=== PATIENT | male | born 1950 | race Caucasian/White ===

== ENCOUNTER → 2018-11-24 07:59 | Outpatient (CLI) | payer MEDICARE, SELFPAY ==
[2018-09-08 06:39] VITALS: BMI 39.4
--- NOTE | 2018-11-24 14:54 | PFTCOMP ---
COMPLETE PULMONARY FUNCTION TEST INTERPRETATION Brief HPI: Patient is a 68 year old male, currently under the care of myself, who presents to [facility] for complete pulmonary function tests secondary to diagnosis of COPD. Respiratory therapist reports good effort and reproducible results. Interpretation: Forced expiration spirometry shows a very severe large airways obstructive ventilatory defect with an FEV1 of 26% predicted. There is a significant bronchodilator response in FVC by strict ATS criteria. Spirograms are of good quality and plateau slowly, indicating slowly emptying areas of the lungs. The respiratory flow volume loop shows decreased expiratory flow rates at all lung volumes consistent with airway obstruction. Lung volumes by body plethysmography show an elevated total lung capacity at 7.12 L, 133% predicted. FRC and RV are elevated out of proportion. Lung volume measurements are consistent with hyperinflation and air-trapping. Diffusion capacity by carbon monoxide is decreased at 37% predicted. The airway resistance is elevated. No previous pulmonary function tests were available for review. Impression: Partially reversible very severe large airways obstructive ventilatory defect resulting in air trapping with hyperinflation and a symmetric reduction in diffusion capacity
== END ==
PROVIDERS: Family Provider Family Medicine; PCP Family Medicine; Referring Provider Internal Medicine Critical Care Medicine; Visit Provider Internal Medicine Critical Care Medicine
DX: J44.9 Chronic obstructive pulmonary disease, unspecified (principal); G47.30 Sleep apnea, unspecified; E66.01 Morbid (severe) obesity due to excess calories; Z68.41 Body mass index [BMI] 40.0-44.9, adult
CPT/HCPCS: 94060; 94726; 94729

== ENCOUNTER → 2018-11-30 09:00 | Outpatient (CLI) | payer MEDICARE, SELFPAY ==
[2018-09-08 06:39] VITALS: BMI 39.4
[2018-11-30 09:28] VITALS: PULSE 66; PULSE 68; PULSE 75; PULSE 81; PULSE 82; PULSE 83; PULSE 84; O2SAT 85; O2SAT 87; O2SAT 91; O2SAT 92; O2SAT 93; O2SAT 94; O2SAT 96
--- NOTE | 2018-11-30 09:31 | CPS ---
Patient came in on home O2 of 3 lpm pulse dose. SpO2 93-94% room air. Started walk on room air, just before 2nd minute SpO2 85%. Placed patient back on home setting of 3 lpm pulse dose. Patient was able to maintain SpO2 greater than 89% until the 5th minute, SpO2 87%. Turned up to 4 lpm for the remaining minute. Patient took several brief breaks throughout testing.
--- NOTE | 2018-12-01 08:44 | PCM.PSN.6M ---
PSN 6 Minute Walk Test - 6 Minute Walk Test 6 Minute Walk Test: 6 Minute Walk Test PSN:6-Minute Walk Test Start: 11/30/18 09:27 Freq: Status: Active Protocol: RESP.6MINW Document 11/30/18 09:28 RUFINO (Rec: 11/30/18 09:33 RUFINO [id number]) 6 Minute Walk Test Date Performed 11/30/18 Time Performed 09:00 Height 5 ft 5 in Weight: 230 lb Weight in Pounds 230.[address]: Yandel Shah Assistive device used: None Pre-test Oxygen Delivery Method Room Air Pulse Ox (%) 94 Pulse Rate (60-100 beats/min) 66 Dyspnea Nancy Scale (0-10) 0 Exertion Nancy Scale (6-20) 6 1st minute Oxygen Delivery Method Room Air Pulse Ox (%) 91 Pulse Rate (60-100 beats/min) 75 2nd minute Oxygen Delivery Method Room Air Pulse Ox (%) 85 Pulse Rate (60-100 beats/min) 83 Number of Rests Taken 1 3rd minute Oxygen Flow Rate (L/min) (L/min) 3 Oxygen Delivery Method Nasal Cannula Pulse Ox (%) 92 Pulse Rate (60-100 beats/min) 75 Number of Rests Taken 1 4th minute Oxygen Flow Rate (L/min) (L/min) 3 Oxygen Delivery Method Nasal Cannula Pulse Ox (%) 92 Pulse Rate (60-100 beats/min) 81 Number of Rests Taken 1 5th minute Oxygen Flow Rate (L/min) (L/min) 3 Oxygen Delivery Method Nasal Cannula Pulse Ox (%) 87 Pulse Rate (60-100 beats/min) 82 6th minute Oxygen Flow Rate (L/min) (L/min) 4 Oxygen Delivery Method Nasal Cannula Pulse Ox (%) 93 Pulse Rate (60-100 beats/min) 84 Dyspnea Nancy Scale (0-10) 3 Exertion Nancy Scale (6-20) 14 Post-test Oxygen Flow Rate (L/min) (L/min) 4 Oxygen Delivery Method Nasal Cannula Pulse Ox (%) 96 Pulse Rate (60-100 beats/min) 68 Full Laps Walked 10 Partial Lap, Number of Tiles Walked 0 Total Distance Walked (ft) 590 11/30/18 09:31 Cardiopulmonary Services by Karen Riggins Patient came in on home O2 of 3 lpm pulse dose. SpO2 93-94% room air. Started walk on room air, just before 2nd minute SpO2 85%. Placed patient back on home setting of 3 lpm pulse dose. Patient was able to maintain SpO2 greater than 89% until the 5th minute, SpO2 87%. Turned up to 4 lpm for the remaining minute. Patient took several brief breaks throughout testing. Initialized on 11/30/18 09:31 - END OF NOTE - Interpretation Interpretation: The patient ambulated 590 feet over the course of 6 minutes beginning on room air without assistive devices. The patient did take several breaks throughout the testing. Pretesting oxygen saturation was noted to be 94% on room air. With ambulation, the patient experienced significant exertional oxygen desaturation, requiring the initiation of supplemental oxygen. This testing indicates the presence of impaired walk distance along with a pulmonary limitation to exercise tolerance. - Recommendations Recommendations: 4 L/min of supplemental oxygen should be utilized with exertion. No supplemental oxygen is needed at rest.
== END ==
PROVIDERS: Family Provider Family Medicine; PCP Family Medicine; Referring Provider Internal Medicine Critical Care Medicine; Visit Provider Internal Medicine Critical Care Medicine
DX: J44.9 Chronic obstructive pulmonary disease, unspecified (principal)
CPT/HCPCS: 94618

== ENCOUNTER 2019-06-25 15:32 | Inpatient (IN) | payer MEDICARE, SELFPAY ==
[2019-03-22 05:56] VITALS: BMI 40.9
[2019-06-25] VITALS (17 sets, daily range): BP systolic 115–145; BP diastolic 59–72; PULSE 74–94; RESP 12–31; TEMP 36.6–36.8; O2SAT 92–99; BMI 38.2; BMI 41.8; BMI 41.9
--- NOTE | 2019-06-25 15:43 | EKG12_ITS ---
Test Reason : SOB Blood Pressure : / mmHG Vent. Rate : 079 BPM Atrial Rate : 079 BPM P-R Int : 188 ms QRS Dur : 098 ms QT Int : 360 ms P-R-T Axes : 072 021 065 degrees QTc Int : 412 ms Normal sinus rhythm Normal ECG Confirmed by LEESA MENDEZ, DESTINEE ([id number]), dictionary editor HANY ANDREWS ([id number]) on 06/26/2019 2:53:44 PM Referred By: Elle Billings Confirmed By:DESTINEE LANDERS MD
--- NOTE | 2019-06-25 15:44 | ED.VISSUMM ---
- ER Visit Summary Date of Service: 06/25/19 Chief Complaint: [Shortness of breath] History of Present Illness: The patient is a 69 M [presents to the emergency department shortness of breath for the last 2 days. Patient states that he is got a cough that started yesterday and is coughing up some yellow sputum. He denies any chest pain. Patient normally wears 3 L of home O2. Patient is complaining of exertional dyspnea. He denies any recent travel or surgery. He denies any fevers.] Patient has history of COPD, pulmonary hypertension, and sleep apnea. Physical Examination: [HEENT-PERRLA, EOMI. Cranial nerves II through XII grossly intact. TMs clear. Mucous membranes moist. No adenopathy. Cardiovascular-regular rate and rhythm without murmur or ectopy Lungs-diminished breath sounds bilaterally with expiratory wheezes throughout. Patient is tachypneic. Patient has some mild conversational dyspnea. No accessory muscle use or retractions noted. Abdomen-normoactive bowel sounds, soft, nontender, no rebound or rigidity, no peritoneal signs. Extremities-intact ?4, normal range of motion, normal pulses, atraumatic] Test Results: [EKG obtained on arrival shows sinus rhythm with a ventricular rate of 79 bpm with no acute segment changes noted. CBC with differential showed a white count of 9.7, hemoglobin 13, hematocrit 43, placed 265. Chemistries unremarkable. Troponin is less than 0.015. Chest x-ray showed chronic changes otherwise nothing acute.] Blood gas ordered and pending. Emergency Department Course and Treatment: [He was given DuoNeb aerosol followed by 2 more albuterol aerosols. Patient continued to feel tachypneic. Patient was started on BiPAP.] Patient started on Solu-Medrol 125 mg IV. Patient feeling improved on BiPAP and respiratory rate decreased now. Treatment Plan: [Admit for further treatment of his COPD exacerbation] Disposition: [Admit] Impression: [C OPD exacerbation Respiratory failure] This note was generated with [employer] dictation software. It may contain incorrect words, spelling, and punctuation that were not noted in review of the chart prior to signing ED Disposition - Plan for ED Patient: Referrals: Earle Weinstein MD [Primary Care Provider] -
--- NOTE | 2019-06-25 15:45 | RAD_ITS ---
STUDY: X-RAY CHEST REASON FOR EXAM: Male, 69 years old. SOB and cough TECHNIQUE: Single frontal view of the chest. COMPARISON: 06/21/2015 FINDINGS: Chronic interstitial lung changes without superimposed acute alveolar disease. There is no demonstrated pleural abnormality. Normal size heart. Normal mediastinum and earlene. Normal visualized pulmonary arteries. There is atherosclerotic tortuosity of the aortic arch and descending thoracic aorta. Normal visualized thoracic spine. There is degenerative osteoarthritis of the bilateral shoulders. There is no demonstrated abnormality of the visualized soft tissue structures of the upper abdomen. RAD/Chest 1 View (Portable) IMPRESSION: Chronic interstitial lung changes without superimposed acute alveolar disease. Electronically Signed: Charlie Langston MD at 16:13 EST Tel , Service support ,
[2019-06-25] MEDS: 0.9% Normal Saline 1,000 ML 150 ML IV (15:49)
[2019-06-25] MEDS: MethylPREDNISolone 125 MG/2 ML Vial IV (15:49)
[2019-06-25] MEDS: Albuterol 2.5 MG/3 ML VIAL.NEB. INHALATION ×4 (15:52→21:36)
[2019-06-25] MEDS: Ipratropium/Albuterol Sulfate 3 ML AMPUL.NEB INHALATION ×2 (15:52→19:30)
[2019-06-25 15:58] LABS: Absolute Lymphocyte Count 1.49 X10^3/uL (0.83-4.51); Absolute Neutrophil Count 6.8 X10^3/uL (2.0-7.7); Basophil# 0.09 X10^3/uL; Basophil% 0.9 % (0-1); Eosinophils% 3.1 % (0-5); Hematocrit 43.2 % (40-54); Hemoglobin 13.3 g/dL (13.0-16.5); Lymphocyte # 1.49 X10^3/ul (4.0); Lymphocyte % 15.3 % (19-41); Mean Corp Hgb Conc 30.8 g/dL (32-36); Mean Corpuscular Hgb 29.3 pg (27.0-32.0); Mean Corpuscular Volume 95.2 fL (80-94); Mean Platelet Vol. 9.9 fl (6.2-12.0); Monocyte# 1.03 X10^3/uL; Monocyte% 10.6 % (0-10); NRBC Flagged by Analyzer 0 % (0-5); Neutrophil # 6.78 X10^3/uL (2.7-7.7); Neutrophil % 69.7 % (47-70); Platelet Count 265 K/mm3 (150-450); RBC Distribution Width CV 12.9 % (11.6-14.6); RBC Distribution Width SD 45.2 fl (35.1-43.9); Red Blood Count 4.54 M/mm3 (4.6-6.2); White Blood Count 9.7 K/mm3 (4.4-11.0)
--- NOTE | 2019-06-25 16:09 | CPS ---
Patient grunting with BiPAP on, pressures increased to 14/7. FiO2 decreased to 25%,
[2019-06-25 16:23] LABS: Anion Gap 2 (5-15); BUN 18 mg/dL (7-18); BUN/Creat Ratio 23.5 RATIO (10-20); Calcium,Total 8.8 mg/dL (8.5-10.1); Chloride 101 mmol/L (98-107); Creatinine, Serum 0.77 mg/dL (0.70-1.30); EST Glomerular Filtration Rate 107 mL/min (>60); Est Glom Filt Rate - Afr Amer 130 mL/min (>60); Glucose 105 mg/dL (74-106); Potassium 4.1 mmol/L (3.5-5.1); Sodium Level 141 mmol/L (136-145)
[2019-06-25 16:50] LABS: Allen Test POS; Base Excess 11 mmol/L (-2 to +2); Blood Gas Specimen Type ART; EPAP 7; FI02 25; IPAP 14; PO2 72 mmHG (75-100); RR 12; SITE R Radial; SO2 94 % (95-99); Time Given 1635; Total Carbon Dioxide 38 mmol/L; pCO2 57.8 mmHg (35-45)
--- NOTE | 2019-06-25 17:26 | HP.PCM_ITS ---
Problem List (1) Stage 4 very severe COPD by GOLD classification Status: Chronic Comment: FEV1 29% (2) Obesity (BMI 30-39.9) Status: Chronic (3) Secondary pulmonary hypertension Status: Chronic (4) COPD (chronic obstructive pulmonary disease) Status: Chronic Comment: FEV1 29% (5) Sleep apnea Status: Chronic Qualifiers: Comment: AutoPap 10-14 cmH2O (6) Chronic respiratory failure Status: Chronic Qualifiers: History of Present Illness Date of Admission: 06/25/19 Chief Complaint: Shortness of breath. The patient is a 69 year old M patient with past medical history as mentioned above presented to the emergency room because of shortness of breath. Symptoms started 2 days ago with worsening shortness of breath, exertional shortness of breath, progressed to become even at rest, associated with productive cough with yellow sputum as well as wheezing, aggravated by any type of activity and not relieved with rest. Patient reported sore throat and mild nasal congestion as well. He denies fever or chills. Patient has been on oxygen at 3 L at home chronically and he mentioned that when he increase his oxygen, he becomes dizzy. He denied chest pain, syncope or presyncope. In the emergency department, patient was afebrile, dyspneic and tachypneic. Blood pressure and heart rate were stable. Routine blood work was unremarkable. EKG revealed normal sinus rhythm without evidence of acute skin changes. Troponin was negative. Chest x- ray revealed chronic right lung and left base chronic changes without evidence of acute infiltrate. His ABG revealed pH of 7.40, PCO2 of 57 and PO2 of 72. He is being admitted for acute COPD exacerbation with acute on chronic hypoxic and hypercapnic respiratory failure. Past Medical History Past Medical History (Chronic Problems): Chronic Problems (Last Updated 06/25/19 @ 17:25 by Elle Billings MD) Stage 4 very severe COPD by GOLD classification (Chronic) FEV1 29% Obesity (BMI 30-39.9) (Chronic) Secondary pulmonary hypertension (Chronic) COPD (chronic obstructive pulmonary disease) (Chronic) FEV1 29% Sleep apnea (Chronic) AutoPap 10-14 cmH2O Chronic respiratory failure (Chronic) Medical History: Medical History (Last Updated 06/25/19 @ 17:25 by Elle Billings MD) COPD (chronic obstructive pulmonary disease) (Chronic) J44.9 FEV1 29% Sleep apnea (Chronic) G47.30 AutoPap 10-14 cmH2O Chronic respiratory failure (Chronic) J96.10 Pneumonia J18.9 Fluid overload E87.70 Hypoxia R09.02 Secondary pulmonary hypertension Stage 4 very severe COPD by GOLD classification J44.9 Allergies No Known Allergies Allergy (Verified 06/25/19 15:35) Home Medications: Ambulatory Orders Medication Instructions Recorded Budesonide/Formoterol 160/4.5 2 puff INHALATION BID 02/22/15 [Symbicort 160/4.5 Mcg Inhaler (SP)] Tamsulosin HCl [Flomax] 0.4 mg PO DAILY 06/21/15 furosemide 20 mg tablet 20 mg PO QDAY 07/22/17 tiotropium bromide 2.5 2 puff INHALATION QDAY #1 ea 03/09/19 mcg/actuation mist for inhalation albuterol sulfate HFA 90 2 puff INHALATION Q4H PRN #18 g 03/22/19 mcg/actuation aerosol inhaler Surgical History: Surgical History (Last Reviewed 03/22/19 @ 06:33 by Anabel Skinner) Total knee replacement status Z96.659 Surgical History: - - Head surgery as a child due to trauma. Psychiatric History: No pertinent psych hx Lives: Spouse/ Significant Other Smoking Status: Former smoker Alcohol: None Drugs: None - *Family History Maternal Family History: Family History (Last Reviewed 03/22/19 @ 06:33 by Anabel Skinner) Mother Cancer Father Heart disease Paternal Family History: Family History (Last Reviewed 03/22/19 @ 06:33 by Anabel Skinner) Mother Cancer Father Heart disease History Items: - - mother of ovarian cancer Review of Systems Constitutional: Denies: Anorexia, Chills, Fever, Weakness Eyes: Denies: Blurred vision, Double vision, Drainage, Redness HEENT: Denies: Difficulty Hearing, Ear Pain, Eye Pain, Nasal Congestion, Sore Throat Cardiovascular: Denies: Chest Pain, Chest Pressure, Palpitations, Syncope Respiratory: Reports: Cough, Shortness of Breath, Shortness of breath at rest, Shortness of breath upon exertion, Sputum production, Wheezing. Denies: Pl euritic Pain Gastrointestinal: Denies: Abdominal Pain, Constipation, Diarrhea, Nausea, Vomiting Genitourinary: Denies: Dysuria, Frequency, Hematuria Musculoskeletal: Denies: Arm Pain, Back Pain, Foot Pain Skin: Denies: Dryness, Rash Neurological: Denies: Balance problems, Blurred vision, Double vision, Change in Speech, Slurred speech, Confusion, Headaches, Numbness Psychiatric: Denies: Anxiety, Depression Endocrine: Denies: Change in Body Habitus, Polydipsia, Polyuria VTE Information - Inpt Only VTE Present on Admission: No VTE Mechan Device Prophylaxis: None VTE Pharm Prophylaxis ordered?: Yes - Physical Exam Vitals/I&O's: Vital Signs Temp Pulse Resp BP Pulse Ox 98.3 F 86 19 H 132/64 H 94 06/25/19 15:33 06/25/19 17:14 06/25/19 17:14 06/25/19 17:14 06/25/19 17:14 Oxygen Flow Rate (L/min) 3 Oxygen Delivery Method Bi-pap Weight: 230 lb Body Mass Index (BMI) 38.2 General: Alert, Oriented x3, Cooperative, - - Moderately short of breath. On BiPAP. HEENT: Atraumatic, PERRLA, EOMI Oral: Moist Mucosa, No Gingival or Mucosal Lesions/ Ulcerations Neck: Supple, No JVD, Negative Carotid Bruits, Trachea Midline, Thyroid Normal Size and Texture Lungs: No rales, Diminished, Rhonchi, Short of Breath, Tachypneic, - - Markedly decreased sounds bilateral, bilateral expiratory wheezes. Cardiovascular: Regular rate, Regular Rhythm, Normal S1, Normal S2, PMI Normal Abdomen: Bowel Sounds Present, Soft, Non Tender, Non-Distended, No Hepato- splenomegaly, Obese Extremities: No clubbing, No cyanosis, Edema - Trace edema. Skin: No rashes, No breakdown Lymphatic: No Cervical, Supraclavicular, or Inguinal Adenopathy Neurological: Cranial nerves II-XII grossly intact, Motor Exam 5/5 strength throughout Psych/Mental Status: Normal Affect, Appropriate, Alert and oriented to time, place, person, mood and affect Laboratory Results 06/25/19 15:45: WBC 9.7, RBC 4.54 L, Hgb 13.3, Hct 43.2, MCV 95.2 H, MCH 29.3, MCHC 30.8 L, RDW Std Deviation 45.2 H, RDW Coeff of Earle 12.9, Plt Count 265, MPV 9.9, Immature Gran % (Auto) 0.400, Neut % (Auto) 69.7, Lymph % (Auto) 15.3 L, Antelope % (Auto) 10.6 H, Eos % (Auto) 3.1, Baso % (Auto) 0.9, Absolute Neuts (auto) 6.8, Absolute Lymphs (auto) 1.49, Nucleated RBC % 0 06/25/19 15:45: Sodium 141, Potassium 4.1, Chloride 101, Carbon Dioxide 38.0 H, Anion Gap 2 L, BUN 18, Creatinine 0.77, Estim Creat Clear Calc 61.50, Est GFR (MDRD) Af Amer 130, Est GFR (MDRD) Non-Af 107, BUN/Creatinine Ratio 23.5 H, Glucose 105, Calcium 8.8, Troponin I < 0.015 06/25/19 16:43: Specimen Type ART, Sample Site R Radial, pH 7.40, Bicarbonate Actual 36.0 H, POC Total CO2 38, Base Excess 11 H, O2 Saturation 94 L, O2 % 25, ABG pCO2 57.8 H, ABG pO2 72 L, Mahesh Test POS, Respiration Rate 12, O2 Delivery Device Bi / C PAP, EPAP 7, IPAP 14, Blood Gas Notified Whom ED MD, Blood Gas Notified Time 1635 Clinical Impression(s) from Imaging Studies Chest X-Ray 06/25/19 15:45 IMPRESSION: Chronic interstitial lung changes without superimposed acute alveolar disease. Electronically Signed: Charlie Langston MD at 16:13 EST Tel , Service support , Current Medications Sodium Chloride () 1,000 mls @ 150 mls/hr IV .Q6H40M ONE Stop: 06/25/19 22:22 Last Admin: 06/25/19 15:49 Dose: 150 mls/hr Documented by: Assessment/Plan This is a 69 years old male patient presented to the emergency room because of worsening shortness of breath with productive cough and wheezing, found to have acute COPD exacerbation complicated by acute on chronic hypoxic and hypercapnic respiratory failure. #1 acute COPD exacerbation: Chest x-ray without acute infiltrate or consolidation. Chronic findings noted. EKG was unremarkable. Troponin is negative. Plan: Admit to [facility] floor, telemetry, DuoNeb every 6 hours, albuterol PRN, IV Solu-Medrol, IV Levaquin, sputum culture, respiratory panel for viruses, incentive spirometer, chest physiotherapy, PT OT evaluation and treatment. #2 acute on chronic hypoxic and hypercapnic respiratory failure: Secondary to #1. ABG reviewed, revealed pH of 7.40, PCO2 of 57 and PO2 of 72. Plan to continue BiPAP, IV steroids, IV antibiotics, bronchodilators. #3 COPD/chronic respiratory failure: On home oxygen at 3 L currently. Now on BiPAP, plan as above. #4 benign prostatic hypertrophy: Continue Flomax. #5 secondary pulmonary hypertension: Due to COPD, not on medications. #6 sleep apnea. #7 DVT prophylaxis: Subcu Lovenox. This note was generated with [employer] dictation software. It may contain incorrect words, spelling, and punctuation that were not noted in checking the note before signing. Code Visit Inpatient E&M: 29294 Init Hosp L2
[2019-06-25] MEDS: levoFLOXacin IV 500 MG/100 ML BAG 100 MG IV (18:40)
[2019-06-25] MEDS: guaiFENesin 1,200 MG Tablet 1200 MG PO (22:00)
[2019-06-25] MEDS: 0.9% Saline Lock 10 ML Syringe IV (22:00)
[2019-06-26] VITALS (18 sets, daily range): BP systolic 119–130; BP diastolic 57–79; PULSE 80–110; RESP 12–28; TEMP 36.3–36.6; O2SAT 91–96
[2019-06-26] MEDS: Ipratropium/Albuterol Sulfate 3 ML AMPUL.NEB INHALATION ×5 (01:57→20:41)
--- NOTE | 2019-06-26 02:30 | NURSING ---
PATIENT VERY UPSET BECAUSE NOT GETTING SLEEP ON BIPAP, RESPIRATORY THERAPIST SPOKE WITH DOCTOR TO CHANGE TO CPAP. PATIENT DIDN'T TOLERATE THAT VERY LONG BECAUSE NOT ABLE TO SLEEP. 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 INSTRUCTED TO HAVE BRING IN HOME UNIT EARLY THIS MORNING. PATIENT PLACED ON 4LNC DUE TO NOT BEING ABLE TO HANDLE OUR MACHINE. WILL CONTINUE TO MONITOR.
[2019-06-26] MEDS: 0.9% Saline Lock 10 ML Syringe IV ×4 (05:28→22:03)
[2019-06-26] MEDS: guaiFENesin 1,200 MG Tablet 1200 MG PO ×2 (08:32→22:02)
[2019-06-26] MEDS: Tamsulosin HCl 0.4 MG Capsule PO (08:32)
[2019-06-26] MEDS: Furosemide 20 MG Tablet PO (08:32)
[2019-06-26] MEDS: levoFLOXacin IV 500 MG/100 ML BAG 100 MG IV (08:33)
--- NOTE | 2019-06-26 10:24 | CASEMGMT ---
Addendum entered by Alice Freitas 06/26/19 11:02: Phone number listed is patient's 's cell phone and states okay to call her phone if needed and for DC f/u call if needed. MICK Perera Original Note: RN CM Assessment Introduced role of RN CM to patient.? Patient is alert, oriented and able?to participate in RN CM Assessment. ?Care providers, pharmacy, and demographics verified. Presentation: SOB Admit Dx: COPD Exacerbation, Acute on Chronic Respiratory Failure Re-Admit: No Barriers/Issues: Patient states that he purchased his portable O2 privately and needs to get it serviced, ,Cm advised calling [facility] to inquire as that is whom his Home O2 is through. PCP: Earle Weinstein Specialists: Puldana- Dr Shah Preferred Pharmacy: [facility] Insurance: [id number] PPO Rx Benefit:?Yes, [employer] ?LNOK: Isela Powers LW/HPOA: None on file at [facility]. Patient states he believes he has completed, agreed to Advanced directive information and provided by this CM in case he has not completed, aware can return as an outpatient to complete and given SW rack card. Living Arrangements:?Lives with his in a [facility], 3 steps to enter. ADL?s: Independent with ambulation and ADLs. States does prepare meals. Transportation: Both patient and drive. to transport upon DC. Portable O2 tank is sitting at patient bedside. DME: Home O2 3LNC Continuous- [employer], CPAP with O2 bleed-[employer], Portable O2-self purchased, Glucometer. HHC: None SNF: None Goal: Home and does not think will have any needs. Denies any issues, concerns, or questions with DC planning at this time. Aware CM remains available for any emerging needs. DC PLAN: Home with no anticipated needs identified at this time. MICK Perera
--- NOTE | 2019-06-26 11:18 | CASEMGMT ---
Social Work Palliative Care Screening Tool completed with pt score of 2. No referral indicated at this time. ESTHELA Bell
--- NOTE | 2019-06-26 12:15 | PN_ITS ---
<Han Jones - Last Filed: 06/26/19 12:15> Reason for Visit: SOB Subjective: Patient resting comfortably in chair bedside. Ongoing shortness of breath at rest and worse with exertion. He feels that he has improved since last night. He has a productive cough with yellow sputum. He denies any explicit sick contacts. He tested positive for rhinovirus. No lower extremity edema. No chest pain, heaviness, tightness. No nausea vomiting or diarrhea. Vitals/I&O's: Vital Signs Temp Pulse Resp BP Pulse Ox 97.4 F L 89 18 119/60 95 06/26/19 08:27 06/26/19 11:18 06/26/19 08:27 06/26/19 08:27 06/26/19 08:27 Oxygen Flow Rate (L/min) 4 Oxygen Delivery Method Nasal Cannula Weight: 251 lb 8.759 oz Body Mass Index (BMI) 41.8 Intake and Output for Last 24 Hours 06/24/19 06/25/19 06/26/19 23:59 23:59 23:59 Intake Total 750 / 750 100 / 100 Balance 750 / 750 100 / 100 General: Alert, Oriented x3, Cooperative HEENT: Atraumatic, PERRLA, EOMI, Normocephalic Neck: Supple, No JVD, Negative Carotid Bruits Lungs: Clear to auscultation, Diminished - Severely diminished Cardiovascular: Regular rate, No murmurs Abdomen: Bowel Sounds Present, Soft, Non Tender Extremities: No edema, Capillary Refill Less than 3 Seconds Skin: No rashes, No breakdown Musculoskeletal: No Tenderness to Palpation of Joints or Extremities Neurological: Cranial nerves II-XII grossly intact Psych/Mental Status: Normal Affect, Appropriate, Alert and oriented to time, place, person, mood and affect Microbiology Past 72 Hours 06/25/19 20:45 Sputum, Expectorated/Coughed Gram Stain - Preliminary 06/25/19 20:45 Sputum, Expectorated/Coughed Respiratory Culture - Preliminary Appears to be normal respiratory millicent. Further studies to follow. 06/25/19 17:26 Mucosa - Nose Respiratory Panel (PCR) - Final Rhinovirus 06/25/19 17:26 Mucosa - Nose Influenza Types A,B Direct FA (CHIP) - Final Laboratory Results 06/25/19 15:45: WBC 9.7, RBC 4.54 L, Hgb 13.3, Hct 43.2, MCV 95.2 H, MCH 29.3, MCHC 30.8 L, RDW Std Deviation 45.2 H, RDW Coeff of Earle 12.9, Plt Count 265, MPV 9.9, Immature Gran % (Auto) 0.400, Neut % (Auto) 69.7, Lymph % (Auto) 15.3 L, Canadian % (Auto) 10.6 H, Eos % (Auto) 3.1, Baso % (Auto) 0.9, Absolute Neuts (auto) 6.8, Absolute Lymphs (auto) 1.49, Nucleated RBC % 0 06/25/19 15:45: Sodium 141, Potassium 4.1, Chloride 101, Carbon Dioxide 38.0 H, Anion Gap 2 L, BUN 18, Creatinine 0.77, Estim Creat Clear Calc 61.50, Est GFR (MDRD) Af Amer 130, Est GFR (MDRD) Non-Af 107, BUN/Creatinine Ratio 23.5 H, Glucose 105, Calcium 8.8, Troponin I < 0.015 06/25/19 16:43: Specimen Type ART, Sample Site R Radial, pH 7.40, Bicarbonate Actual 36.0 H, POC Total CO2 38, Base Excess 11 H, O2 Saturation 94 L, O2 % 25, ABG pCO2 57.8 H, ABG pO2 72 L, Mahesh Test POS, Respiration Rate 12, O2 Delivery Device Bi / C PAP, EPAP 7, IPAP 14, Blood Gas Notified Whom ED MD, Blood Gas Notified Time 1639 Current Medications Acetaminophen (Tylenol) 650 mg PO Q6H PRN PRN PRN Reason: Pain Score 1-3/Temp > 100.7 F Albuterol Sulfate (Ventolin Aerosols) 2.5 mg INHALATION Q2H PRN PRN PRN Reason: Shortness of Breath/Wheezing Last Admin: 06/25/19 21:36 Dose: 2.5 mg Documented by: Albuterol/Ipratropium (Duoneb) 3 ml INHALATION Q4H.RT [facility] Last Admin: 06/26/19 11:13 Dose: 3 ml Documented by: Furosemide (Lasix) 20 mg PO DAILY [facility] Last Admin: 06/26/19 08:32 Dose: 20 mg Documented by: Guaifenesin (Mucinex) 1,200 mg PO BID [facility] Last Admin: 06/26/19 08:32 Dose: 1,200 mg Documented by: Levofloxacin (Levaquin Iv) 500 mg in 100 mls @ 100 mls/hr IV Q24 [facility] Stop: 06/29/19 10:59 Last Infusion: 06/26/19 10:06 Dose: Infused Documented by: Sodium Chloride () 250 mls @ 15 mls/hr IV .[id number] PRN PRN Reason: Saline Flush Methylprednisolone (Solu-Medrol) 40 mg IV Q8 [facility] Last Admin: 06/26/19 05:28 Dose: 40 mg Documented by: Nutritional Formula (Lactose Free) (Ensure Enlive) 120 ml PO 4X/DAY [facility] Last Admin: 06/26/19 08:32 Dose: 120 ml Documented by: Ondansetron HCl (Zofran) 4 mg IV Q8H PRN PRN PRN Reason: NAUSEA/VOMITING Senna/Docusate Sodium (Senokot-S, Isabel-Colace) 2 tablet PO BID PRN PRN PRN Reason: Constipation Sodium Chloride () 10 - 40 ml IV UD PRN PRN Reason: SALINE FLUSH Last Admin: 06/26/19 08:35 Dose: 10 ml Documented by: Tamsulosin HCl (Flomax) 0.4 mg PO DAILY [facility] Last Admin: 06/26/19 08:32 Dose: 0.4 mg Documented by: STROKE Vital Signs/Narrative: Vital Signs Temp Pulse Resp BP Pulse Ox 06/26/19 11:18 89 06/26/19 08:27 97.4 F L 88 18 119/60 95 Medical Necessity - Tobacco Use Smoking Status: Former smoker Assessment/Plan 1. Acute COPD exacerbation secondary to acute rhinovirus-continue Solu-Medrol, aerosols. Lungs diminished. No fever or leukocytosis. Sputum culture pending. On empiric Levaquin. 2. Chronic hypoxic hypercapnic repsiratory failure -baseline oxygen 3 L/min. Stable. Follow-up with was her pulmonology as an outpatient. Acute respiratory failure ruled out. 3. BPH-Flomax 4. 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 5. Obstructive sleep apnea-on BiPAP at night. 6. morbid obesity - dietary eval DVT prophylaxis: Lovenox Discharge planning: Likely home tomorrow. This patient was seen by Han Jones PA-C under the supervision of Doctor Sami giron. <LuigiRicky - Last Filed: 06/26/19 13:32> Vitals/I&O's: Vital Signs Temp Pulse Resp BP Pulse Ox 97.4 F L 89 18 119/60 95 06/26/19 08:27 06/26/19 11:18 06/26/19 08:27 06/26/19 08:27 06/26/19 08:27 Oxygen Flow Rate (L/min) 4 Oxygen Delivery Method Nasal Cannula Weight: 114.1 kg Body Mass Index (BMI) 41.8 Intake and Output for Last 24 Hours 06/24/19 06/25/19 06/26/19 23:59 23:59 23:59 Intake Total 750 / 750 675 / 675 Balance 750 / 750 675 / 675 Microbiology Past 72 Hours 06/25/19 20:45 Sputum, Expectorated/Coughed Gram Stain - Preliminary 06/25/19 20:45 Sputum, Expectorated/Coughed Respiratory Culture - Preliminary Appears to be normal respiratory millicent. Further studies to follow. 06/25/19 17:26 Mucosa - Nose Respiratory Panel (PCR) - Final Rhinovirus 06/25/19 17:26 Mucosa - Nose Influenza Types A,B Direct FA (CHIP) - Final Laboratory Results 06/25/19 15:45: WBC 9.7, RBC 4.54 L, Hgb 13.3, Hct 43.2, MCV 95.2 H, MCH 29.3, MCHC 30.8 L, RDW Std Deviation 45.2 H, RDW Coeff of Earle 12.9, Plt Count 265, MPV 9.9, Immature Gran % (Auto) 0.400, Neut % (Auto) 69.7, Lymph % (Auto) 15.3 L, Canadian % (Auto) 10.6 H, Eos % (Auto) 3.1, Baso % (Auto) 0.9, Absolute Neuts (auto) 6.8, Absolute Lymphs (auto) 1.49, Nucleated RBC % 0 06/25/19 15:45: Sodium 141, Potassium 4.1, Chloride 101, Carbon Dioxide 38.0 H, Anion Gap 2 L, BUN 18, Creatinine 0.77, Estim Creat Clear Calc 61.50, Est GFR (MDRD) Af Amer 130, Est GFR (MDRD) Non-Af 107, BUN/Creatinine Ratio 23.5 H, Glucose 105, Calcium 8.8, Troponin I < 0.015 06/25/19 16:43: Specimen Type ART, Sample Site R Radial, pH 7.40, Bicarbonate Actual 36.0 H, POC Total CO2 38, Base Excess 11 H, O2 Saturation 94 L, O2 % 25, ABG pCO2 57.8 H, ABG pO2 72 L, Mahesh Test POS, Respiration Rate 12, O2 Delivery Device Bi / C PAP, EPAP 7, IPAP 14, Blood Gas Notified Whom ED MD, Blood Gas Notified Time 1635 Current Medications Acetaminophen (Tylenol) 650 mg PO Q6H PRN PRN PRN Reason: Pain Score 1-3/Temp > 100.7 F Albuterol Sulfate (Ventolin Aerosols) 2.5 mg INHALATION Q2H PRN PRN PRN Reason: Shortness of Breath/Wheezing Last Admin: 06/25/19 21:36 Dose: 2.5 mg Documented by: Albuterol/Ipratropium (Duoneb) 3 ml INHALATION Q4H.RT [facility] Last Admin: 06/26/19 11:13 Dose: 3 ml Documented by: Furosemide (Lasix) 20 mg PO DAILY [facility] Last Admin: 06/26/19 08:32 Dose: 20 mg Documented by: Guaifenesin (Mucinex) 1,200 mg PO BID [facility] Last Admin: 06/26/19 08:32 Dose: 1,200 mg Documented by: Levofloxacin (Levaquin Iv) 500 mg in 100 mls @ 100 mls/hr IV Q24 [facility] Stop: 06/29/19 10:59 Last Infusion: 06/26/19 10:06 Dose: Infused Documented by: Sodium Chloride () 250 mls @ 15 mls/hr IV .[id number] PRN PRN Reason: Saline Flush Methylprednisolone (Solu-Medrol) 40 mg IV Q8 [facility] Last Admin: 06/26/19 05:28 Dose: 40 mg Documented by: Ondansetron HCl (Zofran) 4 mg IV Q8H PRN PRN PRN Reason: NAUSEA/VOMITING Senna/Docusate Sodium (Senokot-S, Isabel-Colace) 2 tablet PO BID PRN PRN PRN Reason: Constipation Sodium Chloride () 10 - 40 ml IV UD PRN PRN Reason: SALINE FLUSH Last Admin: 06/26/19 08:35 Dose: 10 ml Documented by: Tamsulosin HCl (Flomax) 0.4 mg PO DAILY [facility] Last Admin: 06/26/19 08:32 Dose: 0.4 mg Documented by: STROKE Vital Signs/Narrative: Vital Signs Pulse 06/26/19 11:18 89 Assessment/Plan This patient was seen in conjunction with Han Jones PA-C . I have independently interviewed and examined the patient and reviewed pertinent historical, laboratory, and other data. Please refer to Han Jones PA-C note for details of this patient's presentation, findings, and recommendations. I have reviewed Han Jones PA-C note and concur with documented findings. In brief, patient is 69-year-old gentleman admitted with progressive shortness of breath Physical Examination: GENERAL: cooperative HEENT: Atraumatic; EYES; Anicteric, Normal Conjunctiva NECK; supple, normal thyroid, RESPIRATORY: Diminished to auscultation CARDIOVASCULAR: Regular S1 S2, GI: soft, normoactive bowel sounds, : No Renal angle tenderness; NEURO: Awake; no lateralizing signs. SKIN: No Rash Assessment: 1. Acute rhinovirus infection 2. COPD with acute exacerbation 3. Pulmonary hypertension 4. BPH 5. Obstructive sleep apnea 6. Obesity with BMI 41.9 Recommendations: 1. I have discussed the results of my overview and impressions with the patient 2. Options for management were reviewed Code Visit Inpatient E&M: 45295 Subs Hosp L2
--- NOTE | 2019-06-26 14:38 | CHAPLAIN ---
Type of Pastoral Visit _x__ Initial Visit ___ Follow-up Visit ___ On-call Visit ___ General Patient Visit ___ Spiritual Assessment ___ Family Conference ___ Bereavement ___ Rapid Response ___ Code Blue ___ Other (describe below) Pastoral Care Referral From _x__ Patient ___ Family ___ Nurse ___ Physician ___ Coroner Forensic Technician ___ Label Stitcher ___ Other (describe below) Sacrament/Intervention _x__ Active listening ___ Anointing ___ Uatsdin ___ Bereavement ___ Communion ___ Sonia exploration ___ ___ Life review _x__ Prayer ___ Reconciliation ___ Sacrament of Sick ___ Supportive presence ___ Wedding ___ Other (describe below) Pastoral Comments
[2019-06-27 03:09] VITALS: PULSE 95
[2019-06-27 04:20] VITALS: BP 116/65; PULSE 80; RESP 13; TEMP 36.9; O2SAT 97
--- NOTE | 2019-06-27 06:04 | CPS ---
pt on own cpap from home with 3l bleed
[2019-06-27 06:20] LABS: Anion Gap 5 (5-15); BUN 28 mg/dL (7-18); BUN/Creat Ratio 34.8 RATIO (10-20); Calcium,Total 8.3 mg/dL (8.5-10.1); Chloride 102 mmol/L (98-107); EST Glomerular Filtration Rate 101 mL/min (>60); Est Glom Filt Rate - Afr Amer 123 mL/min (>60); Estimated Creatinine Clearance 76.88 ml/min; Glucose 191 mg/dL (74-106); Potassium 4.4 mmol/L (3.5-5.1); Sodium Level 138 mmol/L (136-145)
[2019-06-27] MEDS: 0.9% Saline Lock 10 ML Syringe IV (06:24)
[2019-06-27 07:02] VITALS: PULSE 74
[2019-06-27 07:03] VITALS: PULSE 91; RESP 16; O2SAT 92
[2019-06-27] MEDS: Ipratropium/Albuterol Sulfate 3 ML AMPUL.NEB INHALATION (07:03)
[2019-06-27 09:28] VITALS: BP 153/84; PULSE 92; RESP 18; TEMP 36.6; O2SAT 95
[2019-06-27] MEDS: Tamsulosin HCl 0.4 MG Capsule PO (09:29)
[2019-06-27] MEDS: Furosemide 20 MG Tablet PO (09:29)
[2019-06-27] MEDS: guaiFENesin 1,200 MG Tablet 1200 MG PO (09:30)
[2019-06-27] MEDS: Enoxaparin 40 MG/0.4 ML Syringe SC (09:30)
[2019-06-27] MEDS: levoFLOXacin IV 500 MG/100 ML BAG 100 MG IV (09:30)
[2019-06-27 09:42] VITALS: O2SAT 94
--- NOTE | 2019-06-27 10:23 | DCINST_ITS ---
You will use the following diet at home:: No restrictions Your food should be the consistency of: Regular Allergies/Adverse Reactions: Allergies No Known Allergies Allergy (Verified 06/25/19 15:35) Medications to take at Discharge Budesonide/Formoterol 160/4.5 [Symbicort 160/4.5 Mcg Inhaler (SP)] 2 puff INHALATION BID 02/22/15 Tamsulosin HCl [Flomax] 0.4 mg PO DAILY 06/21/15 furosemide 20 mg tablet 20 mg PO QDAY 07/22/17 tiotropium bromide 2.5 mcg/actuation mist for inhalation 2 puff INHALATION QDAY #1 ea 03/09/19 albuterol sulfate HFA 90 mcg/actuation aerosol inhaler 2 puff INHALATION Q4H PRN #18 g 03/22/19 Guaifenesin [Mucinex] 1,200 mg PO BID #14 tab 06/27/19 Prednisone 20 mg PO BID #10 tab 06/27/19 The following prescriptions were given: Guaifenesin [Mucinex] 1,200 mg PO BID #14 tab Transmission Status: Pending to [facility][id number] Prednisone 20 mg PO BID #10 tab Transmission Status: Pending to [facility] #[id number] Primary Care Physician: Earle Weinstein MD [Primary Care Provider] - Please follow up with your Primary Care Physician in: in 5-7 days Test Results: Test results from this visit will be discussed in further detail at your follow- up appointment, if applicable. Please Follow Up With: Earle Weinstein MD Please Follow Up With: Yandel Shah MD When: as scheduled Proposed Discharge Date: 06/27/19
--- NOTE | 2019-06-27 10:29 | CASEMGMT ---
Pt is on 3liters continuous oxygen at home and was ambulated with good pulse ox on 3liters today. Therapy states no therapy recommended at this time. Carmella AUGUSTE CM
--- NOTE | 2019-06-27 14:28 | PCM.DC.SUM ---
<Han Jones - Last Filed: 06/27/19 14:28> Discharge Date and Diagnosis Date of Admission: 06/25/19 Date of Discharge: 06/27/19 - Primary Discharge Diagnosis Acute COPD exacerbation secondary to acute rhinovirus Chronic hypoxic respiratory failure secondary to COPD Obstructive sleep apnea Pulmonary hypertension Morbid obesity BPH - Secondary Discharge Diagnosis Chronic Problems (Last Updated 06/25/19 @ 17:25 by Elle Billings MD) Stage 4 very severe COPD by GOLD classification (Chronic) FEV1 29% Obesity (BMI 30-39.9) (Chronic) Secondary pulmonary hypertension (Chronic) COPD (chronic obstructive pulmonary disease) (Chronic) FEV1 29% Sleep apnea (Chronic) AutoPap 10-14 cmH2O Chronic respiratory failure (Chronic) Hospital Course and Treatment Imaging Results: RAD/Chest 1 View (Portable) IMPRESSION: Chronic interstitial lung changes without superimposed acute alveolar disease. Operations: None Procedures: None Summary of Care Provided: Hospital course: The patient is a 69 year old M with past medical history as above most notable for COPD with chronic hypoxic respiratory failure on 3 L/min of oxygen at baseline, who presents to the emergency room with complaints of increased shortness of breath over the 2 days prior to admission. He also had cough productive of yellow sputum and increased wheezing. In the emergency room he was very wheezy, had a negative chest x-ray, was stable on 3 L/min of oxygen and had mild elevation of his CO2 on his BMP. He was admitted to the PCU on telemetry for acute COPD exacerbation. A viral panel demonstrated that he had rhinovirus. He was treated with Levaquin, aerosols, IV Solu-Medrol. The patient improved rapidly to treatment. He was able to be ambulated in the james and did not desaturate on his home oxygen level. He was transitioned to a prednisone taper. He was discharged home in stable condition. He needs to follow-up with his PCP in 1 week, he should also follow-up with his accounts payable assistant, he should call for appointment. This patient was seen by Han Jones PA-C under the supervision of Doctor Meyers. [] - Physical Exam Vitals/I&O's: Vital Signs Temp Pulse Resp BP Pulse Ox 97.8 F 92 18 153/84 H 94 06/27/19 09:28 06/27/19 09:28 06/27/19 09:28 06/27/19 09:28 06/27/19 09:42 Oxygen Flow Rate (L/min) [ 3 AMBULATION with Oxygen] Oxygen Flow Rate (L/min) 3 Oxygen Delivery Method Nasal Cannula Weight: 251 lb 8.759 oz Body Mass Index (BMI) 41.8 Intake and Output for Last 24 Hours 06/25/19 06/26/19 06/27/19 23:59 23:59 23:59 Intake Total 750 / 750 1845 / 1845 360 / 360 Balance 750 / 750 1845 / 1845 360 / 360 General: Alert, Oriented x3, Cooperative HEENT: Atraumatic, PERRLA, EOMI, Normocephalic Neck: Supple, No JVD, Negative Carotid Bruits Lungs: Diminished, Wheezes Cardiovascular: Regular rate, No murmurs Abdomen: Bowel Sounds Present, Soft, Non Tender Extremities: No edema, Capillary Refill Less than 3 Seconds Skin: No rashes, No breakdown Musculoskeletal: No Tenderness to Palpation of Joints or Extremities Neurological: Cranial nerves II-XII grossly intact Psych/Mental Status: Normal Affect, Appropriate, Alert and oriented to time, place, person, mood and affect Microbiology Past 72 Hours 06/25/19 20:45 Sputum, Expectorated/Coughed Gram Stain - Final 06/25/19 20:45 Sputum, Expectorated/Coughed Respiratory Culture - Preliminary Appears to be normal respiratory millicent. Further studies to follow. 06/25/19 17:26 Mucosa - Nose Respiratory Panel (PCR) - Final Rhinovirus 06/25/19 17:26 Mucosa - Nose Influenza Types A,B Direct FA (CHIP) - Final Laboratory Results 06/27/19 05:42: Sodium 138, Potassium 4.4, Chloride 102, Carbon Dioxide 31.0, Anion Gap 5, BUN 28 H, Creatinine 0.80, Estim Creat Clear Calc 76.88, Est GFR (MDRD) Af Amer 123, Est GFR (MDRD) Non-Af 101, BUN/Creatinine Ratio 34.8 H, Glucose 191 H, Calcium 8.3 L Discharge Diet: Low fat/ Low Cholesterol, 2000 mg Sodium Diet Discharge Activity: Return to Normal Activity Home Medications: Medications to take at Discharge Budesonide/Formoterol 160/4.5 [Symbicort 160/4.5 Mcg Inhaler (SP)] 2 puff INHALATION BID 02/22/15 Tamsulosin HCl [Flomax] 0.4 mg PO DAILY 06/21/15 furosemide 20 mg tablet 20 mg PO QDAY 07/22/17 tiotropium bromide 2.5 mcg/actuation mist for inhalation 2 puff INHALATION QDAY #1 ea 03/09/19 albuterol sulfate HFA 90 mcg/actuation aerosol inhaler 2 puff INHALATION Q4H PRN #18 g 03/22/19 Guaifenesin [Mucinex] 1,200 mg PO BID #14 tab 06/27/19 Prednisone 20 mg PO BID #10 tab 06/27/19 Following Prescrptions Were Given to Patient: Guaifenesin [Mucinex] 1,200 mg PO BID #14 tab Transmission Status: Received by [facility] #[id number] Prednisone 20 mg PO BID #10 tab Transmission Status: Received by [facility] #[id number] Primary Care Physician: Earle Weinstein MD [Primary Care Provider] - Please follow up with your Primary Care Physician in: in 5-7 days Please Follow Up With: Earle Weinstein MD Please Follow Up With: Yandel Shah MD When: as scheduled Medical Necessity - Tobacco Use Smoking Status: Former smoker Meaningful Use Info Meaningful Use Diagnoses (Choose all that apply): None applicable <Ricky Meyers - Last Filed: 06/27/19 15:00> Discharge Date and Diagnosis - Secondary Discharge Diagnosis Chronic Problems (Last Updated 06/25/19 @ 17:25 by Elle Billings MD) Stage 4 very severe COPD by GOLD classification (Chronic) FEV1 29% Obesity (BMI 30-39.9) (Chronic) Secondary pulmonary hypertension (Chronic) COPD (chronic obstructive pulmonary disease) (Chronic) FEV1 29% Sleep apnea (Chronic) AutoPap 10-14 cmH2O Chronic respiratory failure (Chronic) Hospital Course and Treatment Summary of Care Provided: This patient was seen in conjunction with Han Jones PA-C . I have independently interviewed and examined the patient and reviewed pertinent historical, laboratory, and other data. Please refer to Han Jones PA-C note for details of this patient's presentation, findings, and recommendations. I have reviewed Han Jones PA-C note and concur with documented findings. In brief, patient is 69-year-old gentleman admitted with progressive shortness of breath Physical Examination: GENERAL: cooperative HEENT: Atraumatic; EYES; Anicteric, Normal Conjunctiva NECK; supple, normal thyroid, RESPIRATORY: Diminished to auscultation CARDIOVASCULAR: Regular S1 S2, GI: soft, normoactive bowel sounds, : No Renal angle tenderness; NEURO: Awake; no lateralizing signs. SKIN: No Rash Assessment: 1. Acute rhinovirus infection 2. COPD with acute exacerbation 3. Pulmonary hypertension 4. BPH 5. Obstructive sleep apnea 6. Obesity with BMI 41.9 Hospital course: As documented above - Physical Exam Vitals/I&O's: Vital Signs Temp Pulse Resp BP Pulse Ox 97.8 F 92 18 153/84 H 94 06/27/19 09:28 06/27/19 09:28 06/27/19 09:28 06/27/19 09:28 06/27/19 09:42 Oxygen Flow Rate (L/min) [ 3 AMBULATION with Oxygen] Oxygen Flow Rate (L/min) 3 Oxygen Delivery Method Nasal Cannula Weight: 114.1 kg Body Mass Index (BMI) 41.8 Intake and Output for Last 24 Hours 06/25/19 06/26/19 06/27/19 23:59 23:59 23:59 Intake Total 750 / 750 1845 / 1845 360 / 360 Balance 750 / 750 1845 / 1845 360 / 360 Microbiology Past 72 Hours 06/25/19 20:45 Sputum, Expectorated/Coughed Gram Stain - Final 06/25/19 20:45 Sputum, Expectorated/Coughed Respiratory Culture - Preliminary Appears to be normal respiratory millicent. Further studies to follow. 06/25/19 17:26 Mucosa - Nose Respiratory Panel (PCR) - Final Rhinovirus 06/25/19 17:26 Mucosa - Nose Influenza Types A,B Direct FA (CHIP) - Final Laboratory Results 06/27/19 05:42: Sodium 138, Potassium 4.4, Chloride 102, Carbon Dioxide 31.0, Anion Gap 5, BUN 28 H, Creatinine 0.80, Estim Creat Clear Calc 76.88, Est GFR (MDRD) Af Amer 123, Est GFR (MDRD) Non-Af 101, BUN/Creatinine Ratio 34.8 H, Glucose 191 H, Calcium 8.3 L Disposition: Home Minutes spent on discharge:: 35 Patient Condition:: Stable Code Visit Inpatient E&M: 18180 Disch Hosp
--- NOTE | 2019-06-28 13:59 | CASEMGMT ---
KALYANI PAYNE Discharge Follow-Up Phone Call. Nieves: Rupa Strata: 3 Discharge Date: 06/27/19 Adm Dx: COPD Exac, Acute on Chronic Resp Failure Call to pt to inquire about how he has been doing since being discharged from the hospital. Pt's , Aby, answered. She states pt was not available to talk on the phone at this time but that she could answer any questions. She states pt is doing pretty good and states, everything's great. 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 She is aware of the appt scheduled with PCP. 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 She states she has the office/contact number. She denies any needs/concerns at this time. Adin LOUIE RN, CM
== END 2019-06-27 11:01 | disposition home or self-care (01) | DRG 191 ==
LOC: ED 16:14 → PCU 17:28
PROVIDERS: Physician Assistant; Admitting Provider Hospitalist; Emergency Provider Emergency Medicine; Family Provider Family Medicine; PCP Family Medicine; Referring Provider Hospitalist; Visit Provider Internal Medicine
DX: J44.1 Chronic obstructive pulmonary disease with (acute) exacerbation (principal); J96.11 Chronic respiratory failure with hypoxia; J96.12 Chronic respiratory failure with hypercapnia; Z68.41 Body mass index [BMI] 40.0-44.9, adult; B97.89 Other viral agents as the cause of diseases classified elsewhere; G47.33 Obstructive sleep apnea (adult) (pediatric); I27.20 Pulmonary hypertension, unspecified; E66.01 Morbid (severe) obesity due to excess calories; N40.0 Benign prostatic hyperplasia without lower urinary tract symptoms; Z99.81 Dependence on supplemental oxygen; Z79.51 Long term (current) use of inhaled steroids; Z79.899 Other long term (current) drug therapy; Z87.891 Personal history of nicotine dependence
CPT/HCPCS: 36415; 36600; 71045; 80048; 82803; 84484; 85025; 87070; 87205; 87633; 87804; 93005; 94002; 94003; 94640; 94667; 94668; 97162; 97802; 99251; 99283; J7030; A4216; G0463

== ENCOUNTER → 2020-01-18 11:05 | Outpatient (CLI) | payer MEDICARE, SELFPAY ==
[2020-01-18 11:05] VITALS: BMI 38.2
[2020-01-18 12:28] LABS: Absolute Lymphocyte Count 1.72 X10^3/uL (0.83-4.51); Absolute Neutrophil Count 5.4 X10^3/uL (2.0-7.7); Basophil# 0.07 X10^3/uL; Basophil% 0.9 % (0-1); Eosinophil# 0.23 X10^3/uL; Eosinophils% 2.8 % (0-5); Hematocrit 42.3 % (40-54); Hemoglobin 12.9 g/dL (13.0-16.5); Lymphocyte # 1.72 X10^3/ul (4.0); Lymphocyte % 21.1 % (19-41); Mean Corp Hgb Conc 30.5 g/dL (32-36); Mean Corpuscular Hgb 29.3 pg (27.0-32.0); Mean Corpuscular Volume 96.1 fL (80-94); Mean Platelet Vol. 10.3 fl (6.2-12.0); Monocyte# 0.71 X10^3/uL; Monocyte% 8.7 % (0-10); NRBC Flagged by Analyzer 0 % (0-5); Neutrophil # 5.39 X10^3/uL (2.7-7.7); Neutrophil % 66.3 % (47-70); Platelet Count 257 K/mm3 (150-450); RBC Distribution Width CV 13.2 % (11.6-14.6); RBC Distribution Width SD 46.9 fl (35.1-43.9); White Blood Count 8.1 K/mm3 (4.4-11.0)
[2020-01-18 12:47] LABS: ALB/GLOB Ratio 0.8 RATIO (0.9-2.4); AST(SGOT) 14 U/L (15-37); Alanine Aminotransfer ALT/SGPT 17 U/L (16-61); Albumin, Serum 3.4 g/dL (3.2-5.0); Alkaline Phosphatase 57 U/L (45-117); Anion Gap 4 (5-15); BUN 18 mg/dL (7-18); BUN/Creat Ratio 28.6 RATIO (10-20); Calcium,Total 8.6 mg/dL (8.5-10.1); Chloride 100 mmol/L (98-107); Cholesterol 181 mg/dL (200); Creatinine, Serum 0.63 mg/dL (0.70-1.30); EST Glomerular Filtration Rate 134 mL/min (>60); Est Glom Filt Rate - Afr Amer 163 mL/min (>60); Globulin 4.2 g/dL (2.2-4.2); Glucose 96 mg/dL (74-106); High Density Lipoprotein 53 mg/dL; PSA,Total - Annual Screen 0.09 ng/mL (0.00-4.00); Potassium 4.5 mmol/L (3.5-5.1); Protein, Total 7.6 g/dL (6.4-8.2); Sodium Level 139 mmol/L (136-145); T4 Free Direct 1.02 ng/dL (0.76-1.46); Thyroid Stim Hormone (TSH) 1.92 uIU/mL (0.358-3.74); Triglycerides 88 mg/dL; Very Low Density Lipoprotein 18 mg/dL (5-40)
== END ==
PROVIDERS: PCP Family Medicine; Referring Provider Family Medicine; Visit Provider Family Medicine
DX: E04.1 Nontoxic single thyroid nodule (principal); N40.0 Benign prostatic hyperplasia without lower urinary tract symptoms; J44.9 Chronic obstructive pulmonary disease, unspecified; E66.01 Morbid (severe) obesity due to excess calories; Z12.5 Encounter for screening for malignant neoplasm of prostate
CPT/HCPCS: 36415; 80053; 80061; 84153; 84439; 84443; 85025; G0103

== ENCOUNTER → 2020-01-31 12:07 | Outpatient (CLI) | payer MEDICARE, SELFPAY ==
[2020-01-18 11:05] VITALS: BMI 38.2
--- NOTE | 2020-01-31 12:10 | US_ITS ---
STUDY: ULTRASOUND - URINARY BLADDER REASON FOR EXAM: Male, 70 years old. INCOMPLETE BLADDER EMPTYING TECHNIQUE: Ultrasound evaluation of the urinary bladder was performed with real-time and static bender-scale imaging. COMPARISON: None. FINDINGS: There is no right UVJ calculus. There is a non-visualization of a right ureteral jet. There is no left UVJ calculus. There is a visualized left ureteral jet. The distended volume of the urinary bladder is 392 ml. The empty volume of the urinary bladder is 132 ml. The bladder wall is within normal limits. The bladder wall measures 4.0 mm. There is no demonstrated bladder wall mass lesion. There are no demonstrated bladder calculi. US/Post Void Residual Bladder IMPRESSION: Small post void residual. Electronically Signed: Ramakrishna Levi, at 15:07 EDT , Service support ,
--- NOTE | 2020-01-31 12:10 | US_ITS ---
STUDY: THYROID ULTRASOUND REASON FOR EXAM: Male, 70 years old. NODULE FELT BY DOCTOR TECHNIQUE: Ultrasound evaluation of the thyroid was performed with real-time and static bender-scale imaging. COMPARISON: None. FINDINGS: RIGHT LOBE: The right lobe of the thyroid gland measures 4.4 cm x 2 cm x 1.9 cm. There is a homogeneous echotexture. There are no demonstrated solid, cystic or complex lesions. LEFT LOBE: The left lobe of the thyroid gland measures 4.8 cm x 2.3 cm x 2.2 cm. There is a homogeneous echotexture. There is a 7 mm x 6 mm x 4 mm hypoechoic solid nodule in the lower pole of the left lobe. ISTHMUS: The isthmus measures 7.0 mm. The regional lymph nodes are normal. US/Thyroid IMPRESSION: 7 mm x 6 mm x 4 mm hypoechoic solid nodule in the lower pole of the left lobe of the thyroid. Electronically Signed: Ramakrishna Levi, at 15:08 EDT , Service support ,
--- NOTE | 2020-01-31 13:18 | CT_ITS ---
STUDY: CT CHEST WITHOUT CONTRAST- LOW DOSE SCREENING PROTOCOL REASON FOR EXAM: Male, 70 years old. pack per year history. No current symptoms of lung cancer or pulmonary infection. Shared decision-making with referring PCP documented in patient''s record. RADIATION DOSAGE (If Supplied By Facility): CTDIvol = ( 3.40 ) mGy, DLP = ( 112.31 ) mGycm TECHNIQUE: Low dose screening CT examination performed from the base of the neck to the upper abdomen. Sagittal and coronal reformatted images performed. Sagittal and coronal MIP images provided. The measurements provided are average, rounded measurements per ACR guidelines. COMPARISON: 10/02/2014 FINDINGS: Mild emphysematous changes. Some left lower lobe cylindrical bronchiectasis and scarring. Linear scarring in the lingula left lung. No noncalcified nodule or mass. There is no demonstrated pleural abnormality. Normal heart and pericardium. There are calcifications of the coronary arteries. Normal mediastinum. Normal hilar regions. Normal unenhanced pulmonary arteries. Normal aorta arch and descending thoracic aorta. Normal osseous structures. There is no demonstrated abnormality of the visualized upper abdomen. CT/Low Dose CT Lung Screening IMPRESSION: 1. No significant indeterminate incidental findings requiring additional imaging. 2. Incidental findings include mild emphysema, bronchiectasis, and scarring.. ASSESSMENT CATEGORY: LungRADS 1 - Negative. Continue annual screening with LDCT in 12 months, per established ACR guidelines. Electronically Signed: Zelalem Christianson MD at 14:48 EDT Tel , Service support ,
== END ==
PROVIDERS: PCP Family Medicine; Referring Provider Family Medicine; Visit Provider Family Medicine
DX: Z12.2 Encounter for screening for malignant neoplasm of respiratory organs (principal); Z87.891 Personal history of nicotine dependence; E04.1 Nontoxic single thyroid nodule; R33.9 Retention of urine, unspecified
CPT/HCPCS: 51798; 76536; G0297

== ENCOUNTER 2020-05-05 16:52 | Emergency (ER) | payer MEDICARE, SELFPAY ==
[2020-01-18 11:05] VITALS: BMI 38.2
[2020-05-05 16:53] VITALS: BP 145/71; PULSE 84; RESP 24; TEMP 36.3; O2SAT 96; BMI 39.9
--- NOTE | 2020-05-05 17:16 | RAD_ITS ---
STUDY: X-RAY CHEST REASON FOR EXAM: Male, 70 years old. Shortness of breath, COPD, fever TECHNIQUE: Frontal view of the chest COMPARISON: 25 June 2019 FINDINGS: There is new ill-defined right lower lung opacity. Left mid and lower lung zone opacity has increased compared to prior. However, there were previous opacities with air likely scarring. There is no pneumothorax, cardiomegaly, pulmonary edema or pleural effusions. Osseous structures are intact. RAD/Chest 1 View (Portable) IMPRESSION: Bilateral ill-defined opacities, possibly early pneumonia. Electronically Signed: Jayda Escudero, at 19:05 EDT Tel , Service support ,
--- NOTE | 2020-05-05 17:16 | EKG12_ITS ---
Test Reason : SOB Blood Pressure : / mmHG Vent. Rate : 083 BPM Atrial Rate : 083 BPM P-R Int : 180 ms QRS Dur : 094 ms QT Int : 364 ms P-R-T Axes : 069 014 062 degrees QTc Int : 427 ms Normal sinus rhythm Low voltage QRS Confirmed by TORI MENDEZ, GAIL ([id number]), industrial editor RIYA CRAIG ([id number]) on 05/07/2020 12:44:51 PM Referred By: AAMIR/ZENAIDA Confirmed By:GAIL VALLE MD
--- NOTE | 2020-05-05 18:03 | ED.DCSUM_ITS ---
History of Present Illness Chief Complaint: Shortness of Breath Informant: Patient, Spouse/S.O. Onset: Days - 3-4 Activity at onset: Exertion Timing: Continuous, Waxes and wanes Quality: Dyspnea on exertion, Wheezing Current Severity: Moderate Maximum Severity: Moderate Associated Symptoms: Cough, Fever - 99.8 couple days ago, none since, Rhinorrhea - And congestion, no sinus pain/pressure. Negative for: Bloody Sputum, Chills, Clear sputum, Sore throat Chest Pain: None Narrative: Patient has been having cold symptoms and increased COPD symptoms for several days. Low-grade temperatures couple days ago, patient did not have any cold chills. Patient presents during the national coronavirus emergency declaration/pandemic. He denies any known contact with anyone infected with COVID-19. He denies traveling out of the immediate area recently. No leg pain or swelling, no history of DVT or PE. No pleuritic pains. States he has been using his maintenance inhalers, and using a rescue inhaler 2 puffs daily which helps temporarily. - Past Medical History (1) COPD (chronic obstructive pulmonary disease) Status: Chronic Comment: FEV1 29% (2) Secondary pulmonary hypertension Status: Chronic (3) Sleep apnea Status: Chronic Comment: AutoPap 10-14 cmH2O Past Medical History - Allergies and Home Meds Allergies/Adverse Reactions: Allergies No Known Allergies Allergy (Verified 05/05/20 16:53) Primary Care Physician: Earle Espinoza MD [Primary Care Provider] - Surgical History: - - Head surgery as a child due to trauma. Lives: With Family Smoking Status: Former smoker - Family History Paternal Family History: Family History (Last Reviewed 03/22/19 @ 06:33 by Anabel Skinner) Mother Cancer Father Heart disease Family History: Reports: - - mother of ovarian cancer Maternal Family History: Family History (Last Reviewed 03/22/19 @ 06:33 by Anabel Skinner) Mother Cancer Father Heart disease Family History: Reports: No pertinent history, - Review of Systems General: Reports: Fever, Malaise. Denies: Chills, Sweats Eyes: Denies: Visual changes - bilaterally, Diplopia ENT: Reports: Rhinorrhea - And congestion. Denies: Bilateral ear pain, Sore throat Cardiovascular: Denies: Chest pain, Palpitations Respiratory: Reports: Dyspnea, Cough, Dyspnea on exertion. Denies: Sputum, Orthopnea Gastrointestinal: Denies: Abdominal pain, Nausea, Vomiting, Diarrhea, Melena, Hematochezia Genitourinary: Denies: Dysuria, Hematuria, Frequency Musculoskeletal: Reports: Myalgias, Swelling - Chronic both lower extremities, unchanged. Denies: Neck pain, Back pain, Extremity Pain Skin: Denies: Rash, Wounds Neurological: Reports: Headache. Denies: Weakness, Numbness Physical Exam Vital Signs/Narrative: Vital Signs Temp Pulse Resp BP Pulse Ox 05/05/20 16:53 97.3 F L 84 24 H 145/71 H 96 Inital Vital Signs reviewed: Yes General: Well nourished, Well developed, No Acute Distress Head: Normocephalic, Atraumatic Eyes: Perrl, EOMI ENT: Moist mucous membranes, No rhinorrhea Neck: Supple, Nontender, No lymphadenopathy, No JVD Cardiovascular: Regular rate, Regular rhythm, No murmurs. Negative for: Tachycardia Respiratory: No distress, Chest nontender, Wheezing. Negative for: Rales, Rhonchi Abdomen: Soft, Nontender, Nondistended, Normal bowel sounds Back: Nontender, Normal Inspection Extremities: Nontender, Edema - 2+ both lower extremities to the knees, symmetric. Negative for: Calf Tenderness Skin: Normal color, No rash, No Trauma Neurological: Alert, Oriented x3, Cranial nerves II-XII grossly intact, Normal Strength, Normal Sensation Psychological: Normal affect, Normal Mood Diagnostic/Tx/Re-eval Impressions Chest X-Ray 05/05/20 17:16 IMPRESSION: Bilateral ill-defined opacities, possibly early pneumonia. Electronically Signed: Jayda Escudero, at 19:05 EDT Tel , Service support , 05/05/20 17:16 Chest 1 View (Portable) [RAD] Stat Laboratory Results 05/05/20 05/05/20 18:20 18:20 WBC 5.5 RBC 4.34 L Hgb 12.5 L Hct 40.6 MCV 93.5 MCH 28.8 MCHC 30.8 L RDW Std Deviation 44.2 H RDW Coeff of Earle 12.8 Plt Count 233 MPV 9.8 Immature Gran % (Auto) 0.200 Neut % (Auto) 70.8 H Lymph % (Auto) 16.5 L [place] % (Auto) 11.6 H Eos % (Auto) 0.5 Baso % (Auto) 0.4 Absolute Neuts (auto) 3.9 Absolute Lymphs (auto) 0.91 Nucleated RBC % 0 Sodium 136 Potassium 4.1 Chloride 97 L Carbon Dioxide 37.0 H Anion Gap 2 L BUN 12 Creatinine 0.61 L Estim Creat Clear Calc 60.65 Est GFR (MDRD) Af Amer 167 Est GFR (MDRD) Non-Af 138 BUN/Creatinine Ratio 19.5 Glucose 104 Calcium 7.9 L Troponin I < 0.015 - Rhythm Strip Rhythm Strip: Sinus Rhythm Rate: 83 Ectopy: None - EKG Initial EKG Interpretation: Sinus Rhythm, No Acute Injury Pattern - Normal EKG Treatment - Dyspnea: Albuterol Repeat Evaluation: Improved - Medical Decision Making X-rays above, there are subtle infiltrate suggesting early pneumonia. Certainly COVID-19 is in the differential diagnosis, a swab was sent but he does not need to be admitted, so it was sent to be performed as an outpatient and will not come back tonight. Patient was advised to quarantine as if he has it in the meantime. We will treat him with a azithromycin, prednisone. He was given Solu-Medrol here. He is breathing well, oxygenating well, and has home oxygen at home. Advised follow-up. I offered admission but he declines and states he feels well enough to go home. ED Disposition - Plan for ED Patient: Disposition: Home or Assisted Living Diagnosis: COPD exacerbation, Pneumonia Instructions: ED COPD Flare, ED PNEUMONITIS Adult Prescriptions: Azithromycin 250 mg PO QHS #4 tab Transmission Status: Pending to [facility] #[id number] Prednisone [Deltasone] 40 mg PO DAILY #10 tab Transmission Status: Pending to [facility] #[id number] Referrals: Earle Espinoza MD [Primary Care Provider] - 3-5 Days
[2020-05-05 18:09] VITALS: BP 149/82; PULSE 77; RESP 22; TEMP 36.8; O2SAT 98; O2SAT 99
[2020-05-05 18:31] LABS: Absolute Lymphocyte Count 0.91 X10^3/uL (0.83-4.51); Absolute Neutrophil Count 3.9 X10^3/uL (2.0-7.7); Basophil# 0.02 X10^3/uL; Basophil% 0.4 % (0-1); Eosinophil# 0.03 X10^3/uL; Eosinophils% 0.5 % (0-5); Hematocrit 40.6 % (40-54); Hemoglobin 12.5 g/dL (13.0-16.5); Lymphocyte # 0.91 X10^3/ul (4.0); Lymphocyte % 16.5 % (19-41); Mean Corp Hgb Conc 30.8 g/dL (32-36); Mean Corpuscular Hgb 28.8 pg (27.0-32.0); Mean Corpuscular Volume 93.5 fL (80-94); Mean Platelet Vol. 9.8 fl (6.2-12.0); Monocyte# 0.64 X10^3/uL; Monocyte% 11.6 % (0-10); NRBC Flagged by Analyzer 0 % (0-5); Neutrophil # 3.89 X10^3/uL (2.7-7.7); Neutrophil % 70.8 % (47-70); Platelet Count 233 K/mm3 (150-450); RBC Distribution Width CV 12.8 % (11.6-14.6); RBC Distribution Width SD 44.2 fl (35.1-43.9); Red Blood Count 4.34 M/mm3 (4.6-6.2); White Blood Count 5.5 K/mm3 (4.4-11.0)
[2020-05-05] MEDS: MethylPREDNISolone 125 MG/2 ML Vial IV (18:40)
[2020-05-05 18:51] LABS: Anion Gap 2 (5-15); BUN 12 mg/dL (7-18); BUN/Creat Ratio 19.5 RATIO (10-20); Calcium,Total 7.9 mg/dL (8.5-10.1); Chloride 97 mmol/L (98-107); Creatinine, Serum 0.61 mg/dL (0.70-1.30); EST Glomerular Filtration Rate 138 mL/min (>60); Est Glom Filt Rate - Afr Amer 167 mL/min (>60); Estimated Creatinine Clearance 60.65 ml/min; Glucose 104 mg/dL (74-106); Potassium 4.1 mmol/L (3.5-5.1); Sodium Level 136 mmol/L (136-145)
[2020-05-05] MEDS: Azithromycin 250 MG Tablet 500 MG PO (20:27)
[2020-05-05 20:29] VITALS: BP 134/67; PULSE 83; RESP 16
== END 2020-05-05 20:30 | disposition home or self-care (01) ==
PROVIDERS: Emergency Medicine; Emergency Provider Emergency Medicine; PCP Family Medicine
DX: U07.1 COVID-19 (principal); J44.0 Chronic obstructive pulmonary disease with (acute) lower respiratory infection; J12.89 Other viral pneumonia; J44.1 Chronic obstructive pulmonary disease with (acute) exacerbation; I27.20 Pulmonary hypertension, unspecified; G47.30 Sleep apnea, unspecified; Z87.891 Personal history of nicotine dependence
CPT/HCPCS: 71045; 80048; 84484; 85025; 87635; 93005; 94760; 96374; 99283; A4216; U0003

== ENCOUNTER 2020-05-08 15:18 | Inpatient (IN) | payer MEDICARE, SELFPAY ==
[2020-05-08] VITALS (8 sets, daily range): BP systolic 93–132; BP diastolic 53–88; PULSE 89–124; RESP 17–26; TEMP 36.7–37.3; O2SAT 94–99; BMI 43.0; BMI 42.7
--- NOTE | 2020-05-08 15:28 | ED.VIS.GEN ---
History of Present Illness Chief Complaint: Shortness of Breath Informant: Patient Onset: Days Context: Gradual Onset Timing: Continuous Current Severity: Moderate Maximum Severity: Severe Narrative: The patient is a 70-year-old male with medical history significant for COPD who is on 3 L oxygen at baseline the presents to the emergency department increasing shortness of breath. The patient was seen here 3 days ago. At that point, his chest x-ray showed questionable developing infiltrates. However, he had no tachypnea, fever, or hypoxia. COVID was obtained as a send out and came back positive. He states that since that time, his shortness of breath has been gradually worsening. He denies any fever. He had a scant cough. He denies any chest pain. He states that he just feels like he cannot catch his breath. He states he cannot walk any distance without getting acutely dyspneic. He has been taking prednisone and Zithromax. Prior similar symptoms: Yes Recent Illness/Hospitalization: No Past Medical History - Allergies and Home Meds Allergies/Adverse Reactions: Allergies No Known Allergies Allergy (Verified 05/08/20 15:19) Primary Care Physician: Earle Espinoza MD [Primary Care Provider] - Prior records reviewed: Yes Past Medical History: - - COPD Surgical History: - - Head surgery as a child due to trauma. Smoking Status: Former smoker - Family History Paternal Family History: Family History (Last Reviewed 03/22/19 @ 06:33 by Anabel Skinner) Mother Cancer Father Heart disease Family History: Reports: - - mother of ovarian cancer Maternal Family History: Family History (Last Reviewed 03/22/19 @ 06:33 by Anabel Skinner) Mother Cancer Father Heart disease Family History: Reports: No pertinent history, - Review of Systems General: Denies: Chills, Fever, Sweats Eyes: Denies: Visual changes - bilaterally, Diplopia ENT: Denies: Rhinorrhea, Sore throat Cardiovascular: Denies: Chest pain, Palpitations Respiratory: Reports: Dyspnea, Cough, Dyspnea on exertion Gastrointestinal: Denies: Abdominal pain, Nausea, Vomiting, Diarrhea, Melena, Hematochezia Genitourinary: Denies: Dysuria, Hematuria, Frequency Musculoskeletal: Denies: Back pain, Extremity Pain Skin: Denies: Rash, Wounds Neurological: Denies: Headache, Weakness, Numbness Physical Exam Vital Signs/Narrative: Vital Signs Temp Pulse Resp BP Pulse Ox 05/08/20 15:20 99.1 F 121 H 26 H 132/79 H 97 Inital Vital Signs reviewed: Yes General: Well nourished, Well developed Head: Normocephalic, Atraumatic Eyes: Perrl, EOMI ENT: Moist mucous membranes, No rhinorrhea Neck: Supple, Nontender Cardiovascular: No murmurs, Irregular Respiratory: No distress, Chest nontender, Wheezing, Decreased Air Movement Abdomen: Soft, Nontender, Nondistended, Normal bowel sounds Back: Nontender, Normal Inspection Extremities: Nontender, No edema Skin: Normal color, No rash Neurological: Alert, Oriented x3, Cranial nerves II-XII grossly intact, Normal Strength, Normal Sensation Psychological: Normal affect, Normal Mood Diagnostic/Tx/Re-eval Clinical Impression(s) from Imaging Studies Chest X-Ray 05/08/20 16:00 IMPRESSION: No interval change Electronically Signed: Hans Sheikh MD at 16:27 EDT , Service support , Abnormal Lab Results 05/08/20 05/08/20 05/08/20 15:35 15:35 15:35 WBC 10.7 RBC 4.62 Hgb 13.2 Hct 42.1 MCV 91.1 MCH 28.6 MCHC 31.4 L RDW Std Deviation 43.4 RDW Coeff of Earle 13.0 Plt Count 312 MPV 9.7 Immature Gran % (Auto) 1.000 H Neut % (Auto) 88.7 H Lymph % (Auto) 4.3 L [place] % (Auto) 5.7 Eos % (Auto) 0.1 Baso % (Auto) 0.2 Absolute Neuts (auto) 9.5 H Absolute Lymphs (auto) 0.46 L Nucleated RBC % 0 Differential Comment SCANNED D-Dimer Quant (PE/DVT) 0.60 H* Sodium 137 Potassium 4.0 Chloride 98 Carbon Dioxide 35.0 H Anion Gap 4 L BUN 17 Creatinine 0.70 Estim Creat Clear Calc 60.65 Est GFR (MDRD) Af Amer 145 Est GFR (MDRD) Non-Af 120 BUN/Creatinine Ratio 24.4 H Glucose 157 H Lactic Acid Calcium 8.2 L Total Bilirubin 0.50 AST 45 H ALT 52 Alkaline Phosphatase 64 Troponin I < 0.015 Total Protein 7.5 Albumin 2.8 L Globulin 4.7 H Albumin/Globulin Ratio 0.6 L 05/08/20 15:35 WBC RBC Hgb Hct MCV MCH MCHC RDW Std Deviation RDW Coeff of Earle Plt Count MPV Immature Gran % (Auto) Neut % (Auto) Lymph % (Auto) [place] % (Auto) Eos % (Auto) Baso % (Auto) Absolute Neuts (auto) Absolute Lymphs (auto) Nucleated RBC % Differential Comment D-Dimer Quant (PE/DVT) Sodium Potassium Chloride Carbon Dioxide Anion Gap BUN Creatinine Estim Creat Clear Calc Est GFR (MDRD) Af Amer Est GFR (MDRD) Non-Af BUN/Creatinine Ratio Glucose Lactic Acid 1.1 Calcium Total Bilirubin AST ALT Alkaline Phosphatase Troponin I Total Protein Albumin Globulin Albumin/Globulin Ratio - Rhythm Strip Rhythm Strip: A-fib Rate: 120 - EKG Initial EKG Interpretation: Atrial Fibrillation Prior: Changed - Medical Decision Making Patient is a 70-year-old male with history of COPD on 3 L of oxygen with positive COVID testing that presents with increasing dyspnea despite using his inhalers. The patient presents tachycardic and tachypneic. He is diminished respiratory movement. IV was established. Patient was given gentle fluid bolus. Chest x-ray was repeated which was unchanged. Screening labs do show mild leukocytosis but are otherwise unremarkable. EKG demonstrates new onset atrial fibrillation with rapid ventricular response. The patient's d-dimer was 0.6, and age-adjusted is negative. With his new onset atrial fibrillation increasing dyspnea, the patient will be admitted. He will be kept in isolation according to COVID protocol. The patient is covered with Lovenox. He was discussed with the hospitalist who agrees with plan of care. Impression 1. New onset A. fib with RVR 2. Dyspnea 3. COVID-19 infection ED Disposition - Plan for ED Patient: Referrals: Earle Espinoza MD [Primary Care Provider] -
[2020-05-08 15:52] LABS: Absolute Lymphocyte Count 0.46 X10^3/uL (0.83-4.51); Absolute Neutrophil Count 9.5 X10^3/uL (2.0-7.7); Basophil# 0.02 X10^3/uL; Basophil% 0.2 % (0-1); Eosinophil# 0.01 X10^3/uL; Eosinophils% 0.1 % (0-5); Hematocrit 42.1 % (40-54); Hemoglobin 13.2 g/dL (13.0-16.5); Lymphocyte # 0.46 X10^3/ul (4.0); Lymphocyte % 4.3 % (19-41); Mean Corp Hgb Conc 31.4 g/dL (32-36); Mean Corpuscular Hgb 28.6 pg (27.0-32.0); Mean Corpuscular Volume 91.1 fL (80-94); Mean Platelet Vol. 9.7 fl (6.2-12.0); Monocyte# 0.61 X10^3/uL; Monocyte% 5.7 % (0-10); NRBC Flagged by Analyzer 0 % (0-5); Neutrophil % 88.7 % (47-70); POSITIVE DIFFERENTIAL YES; Platelet Count 312 K/mm3 (150-450); RBC Distribution Width SD 43.4 fl (35.1-43.9); Red Blood Count 4.62 M/mm3 (4.6-6.2); White Blood Count 10.7 K/mm3 (4.4-11.0)
--- NOTE | 2020-05-08 16:00 | RAD_ITS ---
STUDY: X-RAY CHEST REASON FOR EXAM: Male, 70 years old. INCREASED SOB TECHNIQUE: Single AP portable view of the chest. COMPARISON: 05/05/2020 FINDINGS: EKG leads overlie the chest Lungs are expanded with persistent ill-defined opacifications in both lung mcclure, slightly worse on the left than the right. Stable blunting of both costophrenic angles, likely chronic Normal size heart. Normal mediastinum and earlene. Normal visualized pulmonary arteries. Normal visualized aortic arch and descending thoracic aorta. Normal visualized thoracic spine. Normal visualized ribs, clavicles, and shoulders. There is no demonstrated abnormality of the visualized soft tissue structures of the upper abdomen. RAD/Chest 1 View (Portable) IMPRESSION: No interval change Electronically Signed: Hans Sheikh MD at 16:27 EDT , Service support ,
[2020-05-08 16:11] LABS: Differential Indicated SCAN CRITERIA MET
[2020-05-08 16:15] LABS: ALB/GLOB Ratio 0.6 RATIO (0.9-2.4); AST(SGOT) 45 U/L (15-37); Alanine Aminotransfer ALT/SGPT 52 U/L (16-61); Albumin, Serum 2.8 g/dL (3.2-5.0); Alkaline Phosphatase 64 U/L (45-117); Anion Gap 4 (5-15); BUN 17 mg/dL (7-18); BUN/Creat Ratio 24.4 RATIO (10-20); Calcium,Total 8.2 mg/dL (8.5-10.1); Chloride 98 mmol/L (98-107); EST Glomerular Filtration Rate 120 mL/min (>60); Est Glom Filt Rate - Afr Amer 145 mL/min (>60); Estimated Creatinine Clearance 60.65 ml/min; Globulin 4.7 g/dL (2.2-4.2); Glucose 157 mg/dL (74-106); Protein, Total 7.5 g/dL (6.4-8.2); Sodium Level 137 mmol/L (136-145)
[2020-05-08 16:17] LABS: Differential Comment SCANNED
[2020-05-08 16:18] LABS: Lactic Acid 1.1 mmol/L (0.4-1.9)
--- NOTE | 2020-05-08 16:28 | EKG12_ITS ---
Test Reason : SOB Blood Pressure : / mmHG Vent. Rate : 118 BPM Atrial Rate : 125 BPM P-R Int : 000 ms QRS Dur : 090 ms QT Int : 282 ms P-R-T Axes : 000 019 034 degrees QTc Int : 395 ms Atrial fibrillation with rapid ventricular response Low voltage QRS Nonspecific ST abnormality Abnormal ECG Confirmed by SABINE MENDEZ, MALINI ([id number]), editor in chief [address]IN LANE ([id number]) on 05/13/2020 8:25:26 A M Referred By: KATIE Confirmed By:RITCHIE REGALADO MD
[2020-05-08] MEDS: Acetaminophen 500 MG Tablet 1000 MG PO (16:43)
[2020-05-08] MEDS: dilTIAZem 25 MG/5 ML Vial 10 MG IV BOLUS (17:16)
--- NOTE | 2020-05-08 17:20 | NURSING ---
COVID UNIT [facility], COVID PNEUMONIA, ASHELFAH
--- NOTE | 2020-05-08 17:35 | NURSING ---
CV ICU 202
--- NOTE | 2020-05-08 17:37 | PCM.HP.STD ---
Problem List (1) COVID-19 Status: Acute (2) New onset A. fib with RVR Status: Acute (3) Secondary pulmonary hypertension Status: Chronic (4) Obesity (BMI 30-39.9) Status: Chronic (5) Stage 4 very severe COPD by GOLD classification Status: Chronic Comment: FEV1 29% (6) Sleep apnea Status: Chronic Qualifiers: Comment: AutoPap 10-14 cmH2O (7) Chronic respiratory failure Status: Chronic Qualifiers: History of Present Illness Date of Admission: 05/08/20 Chief Complaint: Shortness of breath. The patient is a 70 year old M with past medical history as mentioned above presented to the emergency room because of worsening shortness of breath. His symptoms started 5 days ago with increasing shortness of breath, both on exertion and at rest, associated with mild dry cough without sputum production and without aggravating or relieving factors. He denies fever or chills. He does have COPD and he is on home oxygen at 3 L and over the last couple of days, he increase his oxygen to 4 L without improvement. He denied chest pain, palpitation, dizziness or lightheadedness. He had COVID-19 PCR done 3 days ago and it was positive. Today, he came to the emergency department because of increasing shortness of breath. In the emergency department, he was found to be in A. fib with RVR, heart rate has been in 120s. He was afebrile. Blood pressure stable, pulse ox was 97% on 4 L of oxygen. His routine blood work was unremarkable. His EKG revealed A. fib with RVR, no acute segment changes. Troponin was negative. D-dimer was elevated. Chest x-ray revealed chronic bilateral lung scarring more prominent on the left lung, no obvious new infiltrate. COVID-19 PCR was positive on May 05, 2020. He is being admitted for new onset A. fib with RVR and COVID-19 pneumonia. Past Medical History Past Medical History (Chronic Problems): Chronic Problems (Last Updated 05/08/20 @ 17:[address] Elle Billings MD) Secondary pulmonary hypertension (Chronic) Obesity (BMI 30-39.9) (Chronic) Stage 4 very severe COPD by GOLD classification (Chronic) FEV1 29% COPD (chronic obstructive pulmonary disease) (Chronic) FEV1 29% Sleep apnea (Chronic) AutoPap 10-14 cmH2O Chronic respiratory failure (Chronic) Medical History: Medical History (Last Updated 05/08/20 @ 17:[address] Elle Billings MD) COPD (chronic obstructive pulmonary disease) (Chronic) J44.9 FEV1 29% Sleep apnea (Chronic) G47.30 AutoPap 10-14 cmH2O Chronic respiratory failure (Chronic) J96.10 Secondary pulmonary hypertension Stage 4 very severe COPD by GOLD classification J44.9 Allergies No Known Allergies Allergy (Verified 05/08/20 15:19) Home Medications: Ambulatory Orders Medication Instructions Recorded Budesonide/Formoterol 160/4.5 2 puff INHALATION BID 02/22/15 [Symbicort 160/4.5 Mcg Inhaler (SP)] Tamsulosin HCl [Flomax] 0.8 mg PO DAILY 06/21/15 furosemide 20 mg tablet 20 mg PO QDAY 07/22/17 Azithromycin 250 mg PO QHS #4 tab 05/05/20 Finasteride [Proscar] 5 mg PO DAILY 05/05/20 Prednisone [Deltasone] 40 mg PO DAILY #10 tab 05/05/20 Tiotropium [place] [Spiriva 2 puff INHALATION DAILY 05/08/20 Respimat] Surgical History: Surgical History (Last Reviewed 03/22/19 @ 06:33 by Anabel Skinner) Total knee replacement status Z96.659 Surgical History: - - Head surgery as a child due to trauma. Psychiatric History: No pertinent psych hx Lives: Spouse/ Significant Other Smoking Status: Former smoker Alcohol: None Drugs: None - *Family History Maternal Family History: Family History (Last Reviewed 05/08/20 @ 17:[address] Elle Billings MD) Mother Cancer Father Heart disease History Items: - Paternal Family History: Family History (Last Reviewed 05/08/20 @ 17:[address] Elle Billings MD) Mother Cancer Father Heart disease History Items: - - mother of ovarian cancer Review of Systems Constitutional: Denies: Anorexia, Chills, Fever, Weakness Eyes: Denies: Blurred vision, Double vision, Drainage, Redness HEENT: Denies: Difficulty Hearing, Ear Pain, Eye Pain, Nasal Congestion, Sore Throat Cardiovascular: Denies: Chest Pain, Chest Pressure, Edema, Heaviness, Palpitations, Syncope Respiratory: Reports: Cough, Shortness of Breath, Shortness of breath upon exertion. Denies: Sputum production, Wheezing Gastrointestinal: Denies: Abdominal Pain, Constipation, Diarrhea, Nausea, Vomiting Genitourinary: Denies: Dysuria, Frequency, Hematuria Musculoskeletal: Denies: Arm Pain, Back Pain, Foot Pain Skin: Denies: Dryness, Rash Neurological: Denies: Balance problems, Double vision, Change in Speech, Slurred speech, Confusion, Focal weakness, Incoordination, Numbness Psychiatric: Denies: Anxiety, Depression Endocrine: Denies: Change in Body Habitus, Polydipsia, Polyuria VTE Information - Inpt Only VTE Present on Admission: No VTE Mechan Device Prophylaxis: None VTE Pharm Prophylaxis ordered?: No - Physical Exam Vitals/I&O's: Vital Signs Temp Pulse Resp BP Pulse Ox 99.1 F 114 H 17 120/88 H 97 05/08/20 15:20 05/08/20 17:18 05/08/20 17:18 05/08/20 17:18 05/08/20 17:18 Oxygen Flow Rate (L/min) 4 Oxygen Delivery Method Nasal Cannula Weight: 258 lb 6.108 oz Body Mass Index (BMI) 43.0 General: Alert, Oriented x3, Cooperative, - - Minimally short of breath. HEENT: Atraumatic, PERRLA, EOMI, Normocephalic Oral: Moist Mucosa, No Gingival or Mucosal Lesions/ Ulcerations Neck: Supple, No JVD, Negative Carotid Bruits, Trachea Midline, Thyroid Normal Size and Texture Lungs: No wheeze, Diminished, Rales, Rhonchi, - - Decreased breath sounds bilateral, more at the bases, crackles. Cardiovascular: Normal S1, Normal S2, No murmurs, PMI Normal, Irregular Rate, Tachycardic Abdomen: Bowel Sounds Present, Soft, Non Tender, Non-Distended, No Hepato-splenomegaly Extremities: No clubbing, No cyanosis, No edema Skin: No rashes, No breakdown Lymphatic: No Cervical, Supraclavicular, or Inguinal Adenopathy Neurological: Cranial nerves II-XII grossly intact, Motor Exam 5/5 strength throughout Psych/Mental Status: Normal Affect, Appropriate, Alert and oriented to time, place, person, mood and affect Laboratory Results 05/08/20 15:35: WBC 10.7, RBC 4.62, Hgb 13.2, Hct 42.1, MCV 91.1, MCH 28.6, MCHC 31.4 L, RDW Std Deviation 43.4, RDW Coeff of Earle 13.0, Plt Count 312, MPV 9.7, Immature Gran % (Auto) 1.000 H, Neut % (Auto) 88.7 H, Lymph % (Auto) 4.3 L, [place] % (Auto) 5.7, Eos % (Auto) 0.1, Baso % (Auto) 0.2, Absolute Neuts (auto) 9.5 H, Absolute Lymphs (auto) 0.46 L, Nucleated RBC % 0, Differential Comment SCANNED 05/08/20 15:35: D-Dimer Quant (PE/DVT) 0.60 H* 05/08/20 15:35: Sodium 137, Potassium 4.0, Chloride 98, Carbon Dioxide 35.0 H, Anion Gap 4 L, BUN 17, Creatinine 0.70, Estim Creat Clear Calc 60.65, Est GFR (MDRD) Af Amer 145, Est GFR (MDRD) Non-Af 120, BUN/Creatinine Ratio 24.4 H, Glucose 157 H, Calcium 8.2 L, Total Bilirubin 0.50, AST 45 H, ALT 52, Alkaline Phosphatase 64, Troponin I < 0.015, Total Protein 7.5, Albumin 2.8 L, Globulin 4.7 H, Albumin/Globulin Ratio 0.6 L 05/08/20 15:35: Lactic Acid 1.1 Clinical Impression(s) from Imaging Studies Chest X-Ray 05/08/20 16:00 IMPRESSION: No interval change Electronically Signed: Hans Sheikh MD at 16:27 EDT , Service support , Assessment/Plan All Active Problems (Last Updated 05/08/20 @ 17:[address] Elle Billings MD) COVID-19 (Acute) New onset A. fib with RVR (Acute) This is a 70 years old male patient presented to the emergency room because of increasing shortness of breath with dry cough, was recently diagnosed with COVID-19 and found to have new onset A. fib with RVR and he is being admitted for evaluation and treatment. #1 COVID-19 pneumonia: Chest x-ray reviewed, no significant change from previous EKGs. COVID-19 was positive on May 05, 2020. Currently, patient is on 4 L of oxygen, he is on 3 L at baseline. D-dimer was elevated. Plan: Admit to [facility] COVID-19 unit, telemetry, start IV Decadron, CTA chest with and without contrast, BNP, CPK, CRP, fibrinogen, LDH, infectious disease consult, start Lovenox twice daily, oxygen by nasal cannula to keep O2 saturation more than 92%, repeat CBC and BMP tomorrow morning, PT OT evaluation and treatment. #2 new onset A. fib with RVR: EKG reviewed, revealed A. fib with RVR, heart rate has been in the 120s. No acute segment changes. Troponin is negative. Patient received 1 dose of IV Cardizem bolus. Heart rate still down to 115, blood pressure been stable. TSH was normal on December,. Plan: Cardiac monitoring, serial cardiac enzymes, repeat EKG tomorrow morning, start p.o. metoprolol twice daily, 2D echocardiogram, start therapeutic Lovenox twice daily as above. #3 severe COPD/chronic respiratory failure: Patient is on home oxygen at 3 L at baseline. Currently, is on 4 L. Plan as above. #4 secondary pulmonary hypertension: Secondary to COPD, not on treatment currently except home oxygen. #5 benign prostatic hypertrophy: Continue Flomax. #6 sleep apnea: Not sure if he is on CPAP or BiPAP. #7 DVT prophylaxis: He will be on therapeutic Lovenox twice daily. When I asked the patient about the CODE STATUS, he is not sure and I asked him to think about it. This note was generated with [employer] dictation software. It may contain incorrect words, spelling, and punctuation that were not noted in checking the note before signing. Inpatient E&M: [id number] Init Hosp L3
--- NOTE | 2020-05-08 18:10 | CT_ITS ---
STUDY: CTA CHEST REASON FOR EXAM: Male, 70 years old. New onset afib, elevated D-dimer, COVID +, hx COPD stage 4 on home O2. RADIATION DOSAGE (If Supplied By Facility): CTDIvol = ( 15.04 ) mGy, DLP = ( 563.60 ) mGycm TECHNIQUE: The examination was performed with the intravenous administration of IV 100mL Isovue-370. Post-processing of the angiographic images was performed, with multiplanar reformation and 3D reconstruction. Individualized dose optimization techniques were used for this CT. COMPARISON: Chest x-ray dated May 08, 2020 FINDINGS: Normal enhancement of the main pulmonary artery and right and left pulmonary arteries. Normal enhancement of the bilateral peripheral pulmonary arteries. There is no demonstrated pulmonary embolism. There is atherosclerotic calcification of the aortic arch with tortuosity. There is no demonstrated aortic dissection. Normal heart size and pericardium. Normal mediastinum. Normal hilar regions. Normal visualized trachea and bronchi. Mild to moderate diffuse interstitial thickening/fibrosis seen throughout both lungs most significant in the inferior aspect of the left upper lobe. Additional triangle shaped atelectasis or fibrosis is seen in the lingula of the left upper lobe. Diffuse cystic emphysematous changes are present as well as hyperinflation. No visualized focal pneumonic consolidation. No significant active pulmonary edema. No demonstrated nodules. A tiny calcified granulomas present in the lateral aspect of the right upper lobe. Normal pleura. Normal chest wall structures. There are degenerative changes of thoracic spine. Several tiny gallstones are present. The remaining visualized upper abdominal structures are unremarkable. Subcutaneous gas and mild swelling seen in the right anterior abdomen likely related to therapeutic injection. Small hiatal hernia noted. CT/CTA Chest W/WO Contrast IMPRESSION: 1. No demonstrated pulmonary embolism or arterial dissection. 2. Mild to moderate diffuse interstitial thickening/fibrosis seen throughout both lungs most significant in the inferior aspect of the left upper lobe. Additional triangle shaped atelectasis or fibrosis is seen in the lingula of the left upper lobe. 3. Diffuse cystic emphysematous changes are present as well as hyperinflation. No visualized focal pneumonic consolidation. 4. No significant active pulmonary edema. No demonstrated nodules. Electronically Signed: Russell Thomas MD at 20:20 EDT , Service support ,
[2020-05-08] MEDS: Enoxaparin 100 MG/ML Syringe SC (18:21)
[2020-05-08 19:36] LABS: BNP,B-Type NATRIURETIC PEPTIDE 148.4 pg/mL (0-100)
[2020-05-08 19:37] LABS: Fibrinogen 662 mg/dl (203-444)
[2020-05-08 19:38] LABS: International Normalized Ratio 1.1; Prothrombin Time (Protime)PT. 13.9 SECONDS (11.7-14.9)
[2020-05-08 19:40] LABS: CPK Total, Creatine Kinase 41 U/L (39-308); LDH 175 U/L (87-241)
[2020-05-08] MEDS: Metoprolol Tartrate 25 MG Tablet PO (20:12)
[2020-05-08] MEDS: Albuterol 2.5 MG/3 ML VIAL.NEB. INHALATION (20:43)
[2020-05-09] VITALS (20 sets, daily range): BP systolic 100–135; BP diastolic 47–97; PULSE 66–104; RESP 12–22; TEMP 36.6–37.1; O2SAT 93–98
[2020-05-09 04:35] LABS: Absolute Lymphocyte Count 1.33 X10^3/uL (0.83-4.51); Basophil# 0.01 X10^3/uL; Basophil% 0.1 % (0-1); Eosinophil# 0.01 X10^3/uL; Eosinophils% 0.1 % (0-5); Hematocrit 41.6 % (40-54); Hemoglobin 12.6 g/dL (13.0-16.5); Lymphocyte # 1.33 X10^3/ul (4.0); Lymphocyte % 14.2 % (19-41); Mean Corp Hgb Conc 30.3 g/dL (32-36); Mean Corpuscular Hgb 27.9 pg (27.0-32.0); Mean Corpuscular Volume 92.2 fL (80-94); Mean Platelet Vol. 9.4 fl (6.2-12.0); Monocyte# 0.97 X10^3/uL; Monocyte% 10.3 % (0-10); NRBC Flagged by Analyzer 0 % (0-5); Neutrophil # 6.99 X10^3/uL (2.7-7.7); Neutrophil % 74.4 % (47-70); Platelet Count 303 K/mm3 (150-450); RBC Distribution Width CV 13.1 % (11.6-14.6); RBC Distribution Width SD 44.7 fl (35.1-43.9); Red Blood Count 4.51 M/mm3 (4.6-6.2); White Blood Count 9.4 K/mm3 (4.4-11.0)
[2020-05-09 04:46] LABS: Anion Gap 3 (5-15); BUN 20 mg/dL (7-18); BUN/Creat Ratio 34.4 RATIO (10-20); Calcium,Total 7.5 mg/dL (8.5-10.1); Chloride 99 mmol/L (98-107); Creatinine, Serum 0.58 mg/dL (0.70-1.30); EST Glomerular Filtration Rate 147 mL/min (>60); Est Glom Filt Rate - Afr Amer 178 mL/min (>60); Estimated Creatinine Clearance 60.65 ml/min; Glucose 91 mg/dL (74-106); Potassium 3.6 mmol/L (3.5-5.1); Sodium Level 140 mmol/L (136-145)
--- NOTE | 2020-05-09 07:10 | PN_ITS ---
Patient Problems: Active and Suspected Problems (Last Updated 05/08/20 @ 17:[address] Elle Billings MD) COVID-19 (Acute) New onset A. fib with RVR (Acute) Reason for Visit: Follow-up on COVID-19 pneumonia Subjective: Patient was seen and examined. He feels fairly stable. He is on 2 L of oxygen. Has some chest tightness and cough but no fever. Denies any nausea or vomiting or diarrhea. No other acute events overnight. Patient wears CPAP at night and he does not have his machine here. Objective: Physical exam: General: Alert, Oriented x3, Cooperative, - - Minimally short of breath. HEENT: Atraumatic, PERRLA, EOMI, Normocephalic Oral: Moist Mucosa, No Gingival or Mucosal Lesions/ Ulcerations Neck: Supple, No JVD, Negative Carotid Bruits, Trachea Midline, Thyroid Normal Size and Texture Lungs: No wheeze, Diminished, Rales, Rhonchi, - - Decreased breath sounds bilateral, more at the bases, crackles. Cardiovascular: Normal S1, Normal S2, No murmurs, PMI Normal, Irregular Rate, Tachycardic Abdomen: Bowel Sounds Present, Soft, Non Tender, Non-Distended, No Hepato- splenomegaly Extremities: No clubbing, No cyanosis, No edema Skin: No rashes, No breakdown Lymphatic: No Cervical, Supraclavicular, or Inguinal Adenopathy Neurological: Cranial nerves II-XII grossly intact, Motor Exam 5/5 strength throughout Psych/Mental Status: Normal Affect, Appropriate, Alert and oriented to time, p lace, person, mood and affect Vitals/I&O's: Vital Signs Temp Pulse Resp BP Pulse Ox 98.1 F 89 16 100/69 97 05/09/20 04:15 05/09/20 04:15 05/09/20 04:15 05/09/20 04:15 05/09/20 04:15 Oxygen Flow Rate (L/min) 5 Oxygen Delivery Method Nasal Cannula Weight: 115.7 kg Body Mass Index (BMI) 42.7 Intake and Output for Last 24 Hours 05/07/20 05/08/20 05/09/20 23:59 23:59 23:59 Intake Total 120 / 120 Output Total 500 / 500 Balance -500 / -380 120 / 120 Laboratory Results 05/08/20 15:35: WBC 10.7, RBC 4.62, Hgb 13.2, Hct 42.1, MCV 91.1, MCH 28.6, MCHC 31.4 L, RDW Std Deviation 43.4, RDW Coeff of Earle 13.0, Plt Count 312, MPV 9.7, Immature Gran % (Auto) 1.000 H, Neut % (Auto) 88.7 H, Lymph % (Auto) 4.3 L, [place] % (Auto) 5.7, Eos % (Auto) 0.1, Baso % (Auto) 0.2, Absolute Neuts (auto) 9.5 H, Absolute Lymphs (auto) 0.46 L, Nucleated RBC % 0, Differential Comment SCANNED 05/08/20 15:35: D-Dimer Quant (PE/DVT) 0.60 H* 05/08/20 15:35: Sodium 137, Potassium 4.0, Chloride 98, Carbon Dioxide 35.0 H, Anion Gap 4 L, BUN 17, Creatinine 0.70, Estim Creat Clear Calc 60.65, Est GFR (MDRD) Af Amer 145, Est GFR (MDRD) Non-Af 120, BUN/Creatinine Ratio 24.4 H, Glucose 157 H, Calcium 8.2 L, Total Bilirubin 0.50, AST 45 H, ALT 52, Alkaline Phosphatase 64, Troponin I < 0.015, Total Protein 7.5, Albumin 2.8 L, Globulin 4.7 H, Albumin/Globulin Ratio 0.6 L 05/08/20 15:35: Lactic Acid 1.1 05/08/20 19:00: PT 13.9, INR 1.1, Fibrinogen 662 H 05/08/20 19:00: Lactate Dehydrogenase 175, Total Creatine Kinase 41, Troponin I < 0.015, C-React Prot Ext Range 86.00 H 05/08/20 19:00: B-Natriuretic Peptide 148.4 H 05/08/20 21:32: Troponin I 0.017 05/09/20 04:25: WBC 9.4, RBC 4.51 L, Hgb 12.6 L, Hct 41.6, MCV 92.2, MCH 27.9, MCHC 30.3 L, RDW Std Deviation 44.7 H, RDW Coeff of Earle 13.1, Plt Count 303, MPV 9.4, Immature Gran % (Auto) 0.900, Neut % (Auto) 74.4 H, Lymph % (Auto) 14.2 L, [place] % (Auto) 10.3 H, Eos % (Auto) 0.1, Baso % (Auto) 0.1, Absolute Neuts (auto) 7.0, Absolute Lymphs (auto) 1.33, Nucleated RBC % 0 05/09/20 04:25: Sodium 140, Potassium 3.6, Chloride 99, Carbon Dioxide 38.0 H, Anion Gap 3 L, BUN 20 H, Creatinine 0.58 L, Estim Creat Clear Calc 60.65, Est GFR (MDRD) Af Amer 178, Est GFR (MDRD) Non-Af 147, BUN/Creatinine Ratio 34.4 H, Glucose 91, Calcium 7.5 L Current Medications Acetaminophen (Acetaminophen 325 Mg Tablet) 650 mg PO Q6H PRN PRN PRN Reason: Pain Score 1-10/Temp > 100.7 F Albuterol Sulfate (Albuterol 2.5 Mg/3 Ml Vial.Neb.) 2 mg INHALATION Q4H PRN PRN PRN Reason: Shortness of breath, wheezing Albuterol Sulfate (Albuterol 2.5 Mg/3 Ml Vial.Neb.) 2.5 mg INHALATION Q6HWA.RT [facility] Last Admin: 05/08/20 20:43 Dose: 2.5 mg Documented by: Dexamethasone Sodium Phosphate (Dexamethasone 10 Mg/Ml Vial) 6 mg IV DAILY [facility] Enoxaparin Sodium (Enoxaparin 120 Mg/0.8 Ml Syringe) 120 mg SC BID [facility] Finasteride (Finasteride 5 Mg Tablet) 5 mg PO DAILY [facility] Furosemide (Furosemide 20 Mg Tablet) 20 mg PO DAILY [facility] Iopamidol (Contrast Allergy Safety Check) 0 ml IV X1 [facility] Last Admin: 05/08/20 20:28 Dose: Not Given Documented by: Metoprolol Tartrate (Metoprolol Tartrate 25 Mg Tablet) 25 mg PO BID [facility] Last Admin: 05/08/20 20:12 Dose: 25 mg Documented by: Ondansetron HCl (Ondansetron 4 Mg/2 Ml Vial) 4 mg IV Q8H PRN PRN PRN Reason: NAUSEA/VOMITING Senna/Docusate Sodium (Senna/Docusate Sodium 1 Tablet) 2 tablet PO BID PRN PRN PRN Reason: Constipation Sodium Chloride (0.9% Saline Lock 10 Ml Syringe) 10 - 40 ml IV UD PRN PRN Reason: SALINE FLUSH Tamsulosin HCl (Tamsulosin Hcl 0.4 Mg Capsule) 0.8 mg PO DAILY [facility] Zolpidem Tartrate (Zolpidem Tartrate 5 Mg Tablet) 5 mg PO QHS PRN PRN PRN Reason: INSOMNIA STROKE Vital Signs/Narrative: Vital Signs Temp Pulse Resp BP Pulse Ox 05/09/20 04:15 98.1 F 89 16 100/69 97 05/09/20 04:00 92 Medical Necessity - Tobacco Use Smoking Status: Former smoker Tobacco Use: Cigarettes Assessment/Plan All Active Problems (Last Updated 05/08/20 @ 17:[address] Elle Billings MD) COVID-19 (Acute) New onset A. fib with RVR (Acute) 1. Acute respiratory insufficiency on chronic respiratory failure secondary to acute COVID-19 pneumonia, appears unchanged Patient has remained on more than 4 L of oxygen since admission. Currently on 3- 5L of oxygen. Patient is on 2 L of oxygen at home We will continue with aggressive pulmonary toileting, encourage use of incentive spirometer 2. Acute COVID-19 pneumonia, severe On IV dexamethasone, continue on remdesivir. Plasma ordered 3. New onset A. fib with RVR, heart rate is controlled, on metoprolol and Lovenox subcu 4. Pulmonary hypertension, right ventricular systolic pressure was unable to be measured on the last 2D echo in 2014 2D echo 2D echo to be done in the outpatient 5. BPH, continue on Flomax 6. YENI on CPAP 7. DVT prophylaxis with Lovenox subcu Inpatient E&M: [id number] [facility] Hosp L3
[2020-05-09] MEDS: Albuterol 2.5 MG/3 ML VIAL.NEB. INHALATION ×2 (07:24→18:46)
[2020-05-09] MEDS: Metoprolol Tartrate 25 MG Tablet PO ×2 (08:21→20:57)
[2020-05-09] MEDS: dexAMETHasone 10 MG/ML Vial 6 MG IV (08:21)
[2020-05-09] MEDS: Tamsulosin HCl 0.4 MG Capsule 0.8 MG PO (08:22)
[2020-05-09] MEDS: Furosemide 20 MG Tablet PO (08:23)
[2020-05-09] MEDS: Enoxaparin 120 MG/0.8 ML Syringe SC ×2 (08:23→20:58)
[2020-05-09] MEDS: Finasteride 5 MG Tablet PO (08:23)
--- NOTE | 2020-05-09 10:55 | PCM.HP.ID ---
Problem List (1) COVID-19 Status: Acute Reason for Consult: covid Consulted by: Dr. Billings History of Present Illness: The patient is a 70 year old M with copd, baseline 3L O2 at home, developed sx starting a week ago with chills, cough, dyspnea, headache. No n/v/d, no chest pain, no aches, no change in taste/smell. Lives with who has felt fine. Came to ED yesterday, no fever, hypoxic, placed on 5L, started dexamethasone. Feeling about the same today. CT showed no PE. Nursing reports desat to 80s when ambulating to the bathroom. Full ROS performed and neg except as noted above. - Medical History Past Medical History (Chronic Problems): Chronic Problems (Last Updated 05/08/20 @ 17:[address] Elle Billings MD) Secondary pulmonary hypertension (Chronic) Obesity (BMI 30-39.9) (Chronic) Stage 4 very severe COPD by GOLD classification (Chronic) FEV1 29% COPD (chronic obstructive pulmonary disease) (Chronic) FEV1 29% Sleep apnea (Chronic) AutoPap 10-14 cmH2O Chronic respiratory failure (Chronic) Allergies/Adverse Reactions: Allergies No Known Allergies Allergy (Verified 05/08/20 15:19) Home Medications: Ambulatory Orders Medication Instructions Recorded Budesonide/Formoterol 160/4.5 2 puff INHALATION BID 02/22/15 [Symbicort 160/4.5 Mcg Inhaler (SP)] Tamsulosin HCl [Flomax] 0.8 mg PO DAILY 06/21/15 furosemide 20 mg tablet 20 mg PO QDAY 07/22/17 Azithromycin 250 mg PO QHS #4 tab 05/05/20 Finasteride [Proscar] 5 mg PO DAILY 05/05/20 Prednisone [Deltasone] 40 mg PO DAILY #10 tab 05/05/20 Tiotropium [place] [Spiriva 2 puff INHALATION DAILY 05/08/20 Respimat] - Social History SMOKING STATUS:: Former smoker Vital Signs Temp Pulse Resp BP Pulse Ox 97.8 F 89 20 H 122/68 H 93 05/09/20 10:15 05/09/20 10:15 05/09/20 10:15 05/09/20 10:15 05/09/20 10:15 Oxygen Flow Rate (L/min) 3 Oxygen Delivery Method Nasal Cannula Weight: 115.7 kg Body Mass Index (BMI) 42.7 Laboratory Tests Past 24 Hrs 05/08/20 05/08/20 05/08/20 15:35 15:35 15:35 WBC 10.7 RBC 4.62 Hgb 13.2 Hct 42.1 MCV 91.1 MCH 28.6 MCHC 31.4 L RDW Std Deviation 43.4 RDW Coeff of Earle 13.0 Plt Count 312 MPV 9.7 Immature Gran % (Auto) 1.000 H Neut % (Auto) 88.7 H Lymph % (Auto) 4.3 L [place] % (Auto) 5.7 Eos % (Auto) 0.1 Baso % (Auto) 0.2 Absolute Neuts (auto) 9.5 H Absolute Lymphs (auto) 0.46 L Nucleated RBC % 0 Differential Comment SCANNED PT INR Fibrinogen D-Dimer Quant (PE/DVT) 0.60 H* Sodium 137 Potassium 4.0 Chloride 98 Carbon Dioxide 35.0 H Anion Gap 4 L BUN 17 Creatinine 0.70 Estim Creat Clear Calc 60.65 Est GFR (MDRD) Af Amer 145 Est GFR (MDRD) Non-Af 120 BUN/Creatinine Ratio 24.4 H Glucose 157 H Lactic Acid Calcium 8.2 L Total Bilirubin 0.50 AST 45 H ALT 52 Alkaline Phosphatase 64 Lactate Dehydrogenase Total Creatine Kinase Troponin I < 0.015 C-React Prot Ext Range B-Natriuretic Peptide Total Protein 7.5 Albumin 2.8 L Globulin 4.7 H Albumin/Globulin Ratio 0.6 L 05/08/20 05/08/20 05/08/20 15:35 19:00 19:00 WBC RBC Hgb Hct MCV MCH MCHC RDW Std Deviation RDW Coeff of Earle Plt Count MPV Immature Gran % (Auto) Neut % (Auto) Lymph % (Auto) [place] % (Auto) Eos % (Auto) Baso % (Auto) Absolute Neuts (auto) Absolute Lymphs (auto) Nucleated RBC % Differential Comment PT 13.9 INR 1.1 Fibrinogen 662 H D-Dimer Quant (PE/DVT) Sodium Potassium Chloride Carbon Dioxide Anion Gap BUN Creatinine Estim Creat Clear Calc Est GFR (MDRD) Af Amer Est GFR (MDRD) Non-Af BUN/Creatinine Ratio Glucose Lactic Acid 1.1 Calcium Total Bilirubin AST ALT Alkaline Phosphatase Lactate Dehydrogenase 175 Total Creatine Kinase 41 Troponin I < 0.015 C-React Prot Ext Range 86.00 H B-Natriuretic Peptide Total Protein Albumin Globulin Albumin/Globulin Ratio 05/08/20 05/08/20 05/09/20 19:00 21:32 04:25 WBC 9.4 RBC 4.51 L Hgb 12.6 L Hct 41.6 MCV 92.2 MCH 27.9 MCHC 30.3 L RDW Std Deviation 44.7 H RDW Coeff of Earle 13.1 Plt Count 303 MPV 9.4 Immature Gran % (Auto) 0.900 Neut % (Auto) 74.4 H Lymph % (Auto) 14.2 L [place] % (Auto) 10.3 H Eos % (Auto) 0.1 Baso % (Auto) 0.1 Absolute Neuts (auto) 7.0 Absolute Lymphs (auto) 1.33 Nucleated RBC % 0 Differential Comment PT INR Fibrinogen D-Dimer Quant (PE/DVT) Sodium Potassium Chloride Carbon Dioxide Anion Gap BUN Creatinine Estim Creat Clear Calc Est GFR (MDRD) Af Amer Est GFR (MDRD) Non-Af BUN/Creatinine Ratio Glucose Lactic Acid Calcium Total Bilirubin AST ALT Alkaline Phosphatase Lactate Dehydrogenase Total Creatine Kinase Troponin I 0.017 C-React Prot Ext Range B-Natriuretic Peptide 148.4 H Total Protein Albumin Globulin Albumin/Globulin Ratio 05/09/20 04:25 WBC RBC Hgb Hct MCV MCH MCHC RDW Std Deviation RDW Coeff of Earle Plt Count MPV Immature Gran % (Auto) Neut % (Auto) Lymph % (Auto) [place] % (Auto) Eos % (Auto) Baso % (Auto) Absolute Neuts (auto) Absolute Lymphs (auto) Nucleated RBC % Differential Comment PT INR Fibrinogen D-Dimer Quant (PE/DVT) Sodium 140 Potassium 3.6 Chloride 99 Carbon Dioxide 38.0 H Anion Gap 3 L BUN 20 H Creatinine 0.58 L Estim Creat Clear Calc 60.65 Est GFR (MDRD) Af Amer 178 Est GFR (MDRD) Non-Af 147 BUN/Creatinine Ratio 34.4 H Glucose 91 Lactic Acid Calcium 7.5 L Total Bilirubin AST ALT Alkaline Phosphatase Lactate Dehydrogenase Total Creatine Kinase Troponin I C-React Prot Ext Range B-Natriuretic Peptide Total Protein Albumin Globulin Albumin/Globulin Ratio - Other Studies Radiology: [] reviewed Other Studies: [] Route of nutrition/ use of supplements: [] Nutritional Intake: [] IV Site: [] Cruz Catheter: [] - Physical Exam General: Alert, Oriented x3, Cooperative, - - ill appearing HEENT: Atraumatic, PERRLA, EOMI Neck: Supple, No Nodes Lungs: Diminished Cardiovascular: Irregular Rate, Tachycardic Abdomen: Soft, Non Tender, Non-Distended Extremities: No edema Skin: No rashes IV Site: Peripheral, without redness Musculoskeletal: No Tenderness to Palpation of Joints or Extremities Neurological: Cranial nerves II-XII grossly intact - Assessment/Plan Antibiotics: [] Assessment/Plan: [] Active and Suspected Problems (Last Updated 05/08/20 @ 17:[address] Elle Billings MD) COVID-19 (Acute) New onset A. fib with RVR (Acute) covid with acute on chronic hypoxic resp failure - as low as 91% on 3L during my exam this AM. On dex, therapeutic lovenox. CT neg for PE. Reviewed EUA and risks/benefits for remdesivir with him, then his , then his daughter. Given his hypoxia, underlying lung disease, and being only 7 days into his course, I think these could help avoid further complications. Daughter wishes to do some research prior to making a decision. Will order ABO. Will follow, thank you, [facility].
--- NOTE | 2020-05-09 13:17 | CPS ---
patient did not get 1300 breathing tx., eating
--- NOTE | 2020-05-09 15:25 | CASEMGMT ---
Addendum entered by Laurel Yates 05/13/20 10:39: Correction: Pt was made aware needs to self-quarantine x 14 days as well. Original Note: RN KERRY ASSESSMENT COVID-19 positive. RN KERRY placed call to pt's room. Introduced self and role of KALYANI PAYNE @ [facility]. Pt is A/O at this time and answers all questions appropriately. Care providers, pharmacy, and demographics verified/updated at this time. PCP: Dr Earle Espinoza Specialists: Dr Shah --pulmonology. Preferred Pharmacy: [facility] Benef[facility]: Yes Living Will/HPOA: Pt states he is not sure if he has completed these. LNOK: , Isela. Has daughter, Yesenia, who lives in [place]. Son who lives in [facility], and has 3 other sons who lives [id number] Living Arrangements: Lives w/his in one-story home w/3 steps to enter. Pt independent w/ADL's. completes most home mgmt tasks. Pt states there are 3 bedrooms in the home and 2 bathrooms. Discussed home isolation precautions and he was made aware pt needs to self-quarantine x 14 days as well. Discussed importance of pt/ sleeping in separate bedrooms and using separate bathrooms. Pt states they have masks, hand resident associate, and disinfectants. Daughter, Yesenia, or son can assist with getting groceries, supplies, medications. Transportation: Pt and drive. States his can drive him home @ discharge DME: States has the following DME: O2 @ 3 L/M continuous through [employer]. CPAP @ HS w/3 L/M bleed-in. Has concentrator and portability. Has nebulizer, shower chair, Walker, and cane. Pt states no need for further DME at this time. HHC/SNF: States has had HHC in the past but does not remember the name of the agency. No history of SNF. Pt states he does not feel that he will need HHC @ d/c. Pt wishes to return home and states has no concerns with going home at time of discharge. CM to follow for any increase in home oxygen needs and any further discharge planning/needs. Pt voices no further concerns/needs at this time. Advised pt to ask for CM if any further questions/concerns/needs arise. Voices understanding. PLAN: Home w/family support and discharge plan in place. Pt w/new onset A-fib/RVR. Follow for anti-coag @ discharge. Follow for any increase in oxygen needs @ d/c. PT/OT evals pending. Follow for possible need for HHC. Adin MCKEONN RN CM
--- NOTE | 2020-05-09 17:11 | NURSING ---
Patients family brought in cell phone radio repairman, cookies and home C-Pap unit. All items placed at patients bedside.
[2020-05-09] MEDS: 0.9% Saline Lock 10 ML Syringe IV (20:58)
[2020-05-10] VITALS (14 sets, daily range): BP systolic 108–146; BP diastolic 63–83; PULSE 65–82; RESP 13–20; TEMP 36.5–36.7; O2SAT 84–99
[2020-05-10 03:09] LABS: Hematocrit 39.9 % (40-54); Hemoglobin 12.3 g/dL (13.0-16.5); Mean Corp Hgb Conc 30.8 g/dL (32-36); Mean Corpuscular Hgb 28.4 pg (27.0-32.0); Mean Corpuscular Volume 92.1 fL (80-94); Mean Platelet Vol. 9.9 fl (6.2-12.0); Platelet Count 344 K/mm3 (150-450); RBC Distribution Width SD 44.3 fl (35.1-43.9); Red Blood Count 4.33 M/mm3 (4.6-6.2); White Blood Count 7.1 K/mm3 (4.4-11.0)
[2020-05-10 03:25] LABS: ALB/GLOB Ratio 0.6 RATIO (0.9-2.4); AST(SGOT) 17 U/L (15-37); Alanine Aminotransfer ALT/SGPT 36 U/L (16-61); Albumin, Serum 2.5 g/dL (3.2-5.0); Alkaline Phosphatase 57 U/L (45-117); Anion Gap 2 (5-15); BUN 29 mg/dL (7-18); Calcium,Total 7.9 mg/dL (8.5-10.1); Chloride 101 mmol/L (98-107); Creatinine, Serum 0.58 mg/dL (0.70-1.30); EST Glomerular Filtration Rate 148 mL/min (>60); Est Glom Filt Rate - Afr Amer 179 mL/min (>60); Estimated Creatinine Clearance 60.65 ml/min; Globulin 4.4 g/dL (2.2-4.2); Glucose 129 mg/dL (74-106); Potassium 4.1 mmol/L (3.5-5.1); Protein, Total 6.9 g/dL (6.4-8.2); Sodium Level 140 mmol/L (136-145)
[2020-05-10] MEDS: Albuterol 2.5 MG/3 ML VIAL.NEB. INHALATION ×2 (07:23→19:39)
--- NOTE | 2020-05-10 07:39 | PN_ITS ---
Patient Problems: Active and Suspected Problems (Last Updated 05/08/20 @ 17:[address] Elle Billings MD) COVID-19 (Acute) New onset A. fib with RVR (Acute) Reason for Visit: Follow-up on COVID-19 pneumonia Subjective: Patient was seen and examined. He feels improved. On 4L of oxygen. On 3L oxygen at home. Denies any fever, diarrhea or vomiting. Objective: Physical exam: General: Alert, Oriented x3, Cooperative, on4L oxygen HEENT: Atraumatic, PERRLA, EOMI, Normocephalic Oral: Moist Mucosa, No Gingival or Mucosal Lesions/ Ulcerations Neck: Supple, No JVD, Negative Carotid Bruits, Trachea Midline, Thyroid Normal Size and Texture Lungs: No wheeze, Diminished, Rales, Rhonchi, - - Decreased breath sounds bilateral, more at the bases, crackles. Cardiovascular: Normal S1, Normal S2, No murmurs, PMI Normal, Irregular Rate, Tachycardic Abdomen: Bowel Sounds Present, Soft, Non Tender, Non-Distended, No Hepato-splenomegaly Extremities: No clubbing, No cyanosis, No edema Skin: No rashes, No breakdown Lymphatic: No Cervical, Supraclavicular, or Inguinal Adenopathy Neurological: Cranial nerves II-XII grossly intact, Motor Exam 5/5 strength throughout Psych/Mental Status: Normal Affect, Appropriate, Alert and oriented to time, place, person, mood and affect Vitals/I&O's: Vital Signs Temp Pulse Resp BP Pulse Ox 97.9 F 74 19 H 146/63 H 99 05/10/20 03:00 05/10/20 07:25 05/10/20 07:25 05/10/20 03:00 05/10/20 07:26 Oxygen Flow Rate (L/min) 4 Oxygen Delivery Method Nasal Cannula Weight: 115.7 kg Body Mass Index (BMI) 42.7 Intake and Output for Last 24 Hours 05/08/20 05/09/20 05/10/20 23:59 23:59 23:59 Intake Total 1060 / 1060 Output Total 500 / 500 400 / 400 125 / 125 Balance -500 / -380 660 / 660 -125 / -125 Laboratory Results 05/09/20 12:25: Blood Type A POSITIVE 05/10/20 03:00: WBC 7.1, RBC 4.33 L, Hgb 12.3 L, Hct 39.9 L, MCV 92.1, MCH 28.4, MCHC 30.8 L, RDW Std Deviation 44.3 H, RDW Coeff of Earle 13.0, Plt Count 344, MPV 9.9 05/10/20 03:00: Sodium 140, Potassium 4.1, Chloride 101, Carbon Dioxide 37.0 H, Anion Gap 2 L, BUN 29 H, Creatinine 0.58 L, Estim Creat Clear Calc 60.65, Est GFR (MDRD) Af Amer 179, Est GFR (MDRD) Non-Af 148, BUN/Creatinine Ratio 50.0 H, Glucose 129 H, Calcium 7.9 L, Total Bilirubin 0.30, AST 17, ALT 36, Alkaline Phosphatase 57, Total Protein 6.9, Albumin 2.5 L, Globulin 4.4 H, Albumin/Globulin Ratio 0.6 L Current Medications Acetaminophen (Acetaminophen 325 Mg Tablet) 650 mg PO Q6H PRN PRN PRN Reason: Pain Score 1-10/Temp > 100.7 F Albuterol Sulfate (Albuterol 2.5 Mg/3 Ml Vial.Neb.) 2 mg INHALATION Q4H PRN PRN PRN Reason: Shortness of breath, wheezing Albuterol Sulfate (Albuterol 2.5 Mg/3 Ml Vial.Neb.) 2.5 mg INHALATION Q6HWA.RT [facility] Last Admin: 05/10/20 07:23 Dose: 2.5 mg Documented by: Dexamethasone Sodium Phosphate (Dexamethasone 10 Mg/Ml Vial) 6 mg IV DAILY [facility] Last Admin: 05/09/20 08:21 Dose: 6 mg Documented by: Enoxaparin Sodium (Enoxaparin 120 Mg/0.8 Ml Syringe) 120 mg SC BID TIMO Last Admin: 05/09/20 20:58 Dose: 120 mg Documented by: Finasteride (Finasteride 5 Mg Tablet) 5 mg PO DAILY [facility] Last Admin: 05/09/20 08:23 Dose: 5 mg Documented by: Furosemide (Furosemide 20 Mg Tablet) 20 mg PO DAILY [facility] Last Admin: 05/09/20 08:23 Dose: 20 mg Documented by: Remdesivir (Investigational) (100 mg/ Sodium Chloride) 250 mls @ 125 mls/hr IV DAILY TIMO; Protocol Stop: 05/13/20 11:59 Metoprolol Tartrate (Metoprolol Tartrate 25 Mg Tablet) 25 mg PO BID [facility] Last Admin: 05/09/20 20:57 Dose: 25 mg Documented by: Ondansetron HCl (Ondansetron 4 Mg/2 Ml Vial) 4 mg IV Q8H PRN PRN PRN Reason: NAUSEA/VOMITING Senna/Docusate Sodium (Senna/Docusate Sodium 1 Tablet) 2 tablet PO BID PRN PRN PRN Reason: Constipation Sodium Chloride (0.9% Saline Lock 10 Ml Syringe) 10 - 40 ml IV UD PRN PRN Reason: SALINE FLUSH Last Admin: 05/09/20 20:58 Dose: 10 ml Documented by: Tamsulosin HCl (Tamsulosin Hcl 0.4 Mg Capsule) 0.8 mg PO DAILY [facility] Last Admin: 05/09/20 08:22 Dose: 0.8 mg Documented by: Zolpidem Tartrate (Zolpidem Tartrate 5 Mg Tablet) 5 mg PO QHS PRN PRN PRN Reason: INSOMNIA STROKE Vital Signs/Narrative: Vital Signs Pulse Resp Pulse Ox 05/10/20 07:26 99 05/10/20 07:25 74 19 H Medical Necessity - Tobacco Use Smoking Status: Former smoker Tobacco Use: Cigarettes Assessment/Plan All Active Problems (Last Updated 05/08/20 @ 17:[address] Elle Billings MD) COVID-19 (Acute) New onset A. fib with RVR (Acute) 1. Acute respiratory insufficiency on chronic respiratory failure secondary to acute COVID-19 pneumonia, appears unchanged Patient is on 4 L of oxygen; on 2-3 L oxygen at home. Continue with aggressive pulmonary toileting, encourage use of incentive spirometer 2. Acute COVID-19 pneumonia, severe On IV dexamethasone, remdesivir. Plasma ordered ID following 3. New onset A. fib with RVR, in NSR, heart rate is controlled, on metoprolol and Lovenox subcu 4. Pulmonary hypertension, right ventricular systolic pressure was unable to be measured on the last 2D echo in 2014 2D echo 2D echo to be done in the outpatient 5. BPH, continue on Flomax 6. YENI on CPAP 7. DVT prophylaxis with Lovenox subcu Inpatient E&M: 08288 Subs Hosp L2
[2020-05-10] MEDS: dexAMETHasone 10 MG/ML Vial 6 MG IV (08:17)
[2020-05-10] MEDS: Furosemide 20 MG Tablet PO (08:17)
[2020-05-10] MEDS: Tamsulosin HCl 0.4 MG Capsule 0.8 MG PO (08:17)
[2020-05-10] MEDS: Metoprolol Tartrate 25 MG Tablet PO ×2 (08:17→21:08)
[2020-05-10] MEDS: Enoxaparin 120 MG/0.8 ML Syringe SC ×2 (08:19→21:09)
[2020-05-10] MEDS: Finasteride 5 MG Tablet PO (10:11)
--- NOTE | 2020-05-10 13:20 | CPS ---
PATIENT WITH PT DID NOT WANT AEROSAL TREATMENT AT THIS TIME REFUSED AT 1315.
--- NOTE | 2020-05-10 16:06 | PN.ID_ITS ---
Patient Problems: Active and Suspected Problems (Last Updated 05/08/20 @ 17:[address] Elle Billings MD) COVID-19 (Acute) New onset A. fib with RVR (Acute) Subjective: Feeling much better, no fever, no n/v/d. Mild cough. - Physical Exam Vitals/I&O's: Vital Signs Temp Pulse Resp BP Pulse Ox 98.1 F 73 20 H 132/63 H 98 05/10/20 15:57 05/10/20 15:58 05/10/20 15:57 05/10/20 15:57 05/10/20 15:57 Oxygen Flow Rate (L/min) 3 Oxygen Delivery Method Nasal Cannula Weight: 115.7 kg Body Mass Index (BMI) 42.7 Intake and Output for Last 24 Hours 05/08/20 05/09/20 05/10/20 23:59 23:59 23:59 Intake Total 1060 / 1060 250 / 250 Output Total 500 / 500 400 / 400 125 / 125 Balance -500 / -380 660 / 660 125 / 125 General: Alert, Cooperative, No apparent distress Lungs: Clear to auscultation Cardiovascular: Regular rate, Regular Rhythm Abdomen: Soft, Non Tender, Non-Distended Skin: No rashes Microbiology Past 72 Hours 05/08/20 15:35 Blood Culture (Wb) - Anticubital Right Blood Culture - Preliminary No growth in 48 hours. Laboratory Results 05/10/20 03:00: WBC 7.1, RBC 4.33 L, Hgb 12.3 L, Hct 39.9 L, MCV 92.1, MCH 28.4, MCHC 30.8 L, RDW Std Deviation 44.3 H, RDW Coeff of Earle 13.0, Plt Count 344, MPV 9.9 05/10/20 03:00: Sodium 140, Potassium 4.1, Chloride 101, Carbon Dioxide 37.0 H, Anion Gap 2 L, BUN 29 H, Creatinine 0.58 L, Estim Creat Clear Calc 60.65, Est GFR (MDRD) Af Amer 179, Est GFR (MDRD) Non-Af 148, BUN/Creatinine Ratio 50.0 H, Glucose 129 H, Calcium 7.9 L, Total Bilirubin 0.30, AST 17, ALT 36, Alkaline Phosphatase 57, Total Protein 6.9, Albumin 2.5 L, Globulin 4.4 H, Albumin/Globulin Ratio 0.6 L Current Medications Acetaminophen (Acetaminophen 325 Mg Tablet) 650 mg PO Q6H PRN PRN PRN Reason: Pain Score 1-10/Temp > 100.7 F Albuterol Sulfate (Albuterol 2.5 Mg/3 Ml Vial.Neb.) 2 mg INHALATION Q4H PRN PRN PRN Reason: Shortness of breath, wheezing Albuterol Sulfate (Albuterol 2.5 Mg/3 Ml Vial.Neb.) 2.5 mg INHALATION Q6HWA.RT [facility] Last Admin: 05/10/20 07:23 Dose: 2.5 mg Documented by: Dexamethasone Sodium Phosphate (Dexamethasone 10 Mg/Ml Vial) 6 mg IV DAILY [facility] Last Admin: 05/10/20 08:17 Dose: 6 mg Documented by: Enoxaparin Sodium (Enoxaparin 120 Mg/0.8 Ml Syringe) 120 mg SC BID [facility] Last Admin: 05/10/20 08:19 Dose: 120 mg Documented by: Finasteride (Finasteride 5 Mg Tablet) 5 mg PO DAILY [facility] Last Admin: 05/10/20 10:11 Dose: 5 mg Documented by: Furosemide (Furosemide 20 Mg Tablet) 20 mg PO DAILY [facility] Last Admin: 05/10/20 08:17 Dose: 20 mg Documented by: Remdesivir (Investigational) (100 mg/ Sodium Chloride) 250 mls @ 125 mls/hr IV DAILY [facility]; Protocol Stop: 05/13/20 11:59 Last Infusion: 05/10/20 12:30 Dose: Infused Documented by: Metoprolol Tartrate (Metoprolol Tartrate 25 Mg Tablet) 25 mg PO BID [facility] Last Admin: 05/10/20 08:17 Dose: 25 mg Documented by: Ondansetron HCl (Ondansetron 4 Mg/2 Ml Vial) 4 mg IV Q8H PRN PRN PRN Reason: NAUSEA/VOMITING Senna/Docusate Sodium (Senna/Docusate Sodium 1 Tablet) 2 tablet PO BID PRN PRN PRN Reason: Constipation Sodium Chloride (0.9% Saline Lock 10 Ml Syringe) 10 - 40 ml IV UD PRN PRN Reason: SALINE FLUSH Last Admin: 05/09/20 20:58 Dose: 10 ml Documented by: Tamsulosin HCl (Tamsulosin Hcl 0.4 Mg Capsule) 0.8 mg PO DAILY [facility] Last Admin: 05/10/20 08:17 Dose: 0.8 mg Documented by: Zolpidem Tartrate (Zolpidem Tartrate 5 Mg Tablet) 5 mg PO QHS PRN PRN PRN Reason: INSOMNIA Medical Necessity - Tobacco Use Smoking Status: Former smoker Tobacco Use: Cigarettes Route of nutrition/ use of supplements: [] Nutritional Intake: [] IV Site: [] Cruz Catheter: [] - Assessment/Plan Antibiotics: [] Assessment/Plan: [] Active and Suspected Problems (Last Updated 05/08/20 @ 17:[address] Elle Billings MD) COVID-19 (Acute) New onset A. fib with RVR (Acute) covid with acute on chronic hypoxic resp failure - On dex, therapeutic lovenox. CT neg for PE. Given plasma 05/09, on 5 days of remdesivir. Ok for home as O2 improves. 2 weeks quarantine from start of symptoms. Ok to stop remdesivir if otherwise ready for discharge. Complete 10 days of dex. Will follow
[2020-05-11] VITALS (9 sets, daily range): BP systolic 114–131; BP diastolic 52–64; PULSE 64–79; RESP 15–20; TEMP 36.4–36.6; O2SAT 96–97
[2020-05-11 04:35] LABS: Mean Corpuscular Hgb 28.2 pg (27.0-32.0); Mean Corpuscular Volume 94.1 fL (80-94); Mean Platelet Vol. 9.7 fl (6.2-12.0); Platelet Count 347 K/mm3 (150-450); RBC Distribution Width CV 13.2 % (11.6-14.6); RBC Distribution Width SD 45.3 fl (35.1-43.9); Red Blood Count 4.25 M/mm3 (4.6-6.2); White Blood Count 8.6 K/mm3 (4.4-11.0)
[2020-05-11 04:49] LABS: ALB/GLOB Ratio 0.6 RATIO (0.9-2.4); AST(SGOT) 25 U/L (15-37); Alanine Aminotransfer ALT/SGPT 41 U/L (16-61); Albumin, Serum 2.5 g/dL (3.2-5.0); Alkaline Phosphatase 50 U/L (45-117); Anion Gap 3 (5-15); BUN 36 mg/dL (7-18); BUN/Creat Ratio 58.1 RATIO (10-20); Calcium,Total 7.7 mg/dL (8.5-10.1); Chloride 103 mmol/L (98-107); Creatinine, Serum 0.62 mg/dL (0.70-1.30); EST Glomerular Filtration Rate 137 mL/min (>60); Est Glom Filt Rate - Afr Amer 165 mL/min (>60); Estimated Creatinine Clearance 60.65 ml/min; Globulin 4.2 g/dL (2.2-4.2); Glucose 98 mg/dL (74-106); Potassium 3.8 mmol/L (3.5-5.1); Protein, Total 6.7 g/dL (6.4-8.2); Sodium Level 142 mmol/L (136-145)
[2020-05-11] MEDS: Albuterol 2.5 MG/3 ML VIAL.NEB. INHALATION ×3 (07:15→19:50)
--- NOTE | 2020-05-11 07:21 | PN_ITS ---
Patient Problems: Active and Suspected Problems (Last Updated 05/08/20 @ 17:[address] Elle Billings MD) COVID-19 (Acute) New onset A. fib with RVR (Acute) Reason for Visit: Follow-up on COVID-19 pneumonia Subjective: Patient was seen and examined. He feels better. He is very SOB on very minimal exertion. Convalescent plasma is pending Objective: Physical exam: General: Alert, Oriented x3, Cooperative, on4L oxygen HEENT: Atraumatic, PERRLA, EOMI, Normocephalic Oral: Moist Mucosa, No Gingival or Mucosal Lesions/ Ulcerations Neck: Supple, No JVD, Negative Carotid Bruits, Trachea Midline, Thyroid Normal Size and Texture Lungs: No wheeze, Diminished, Rales, Rhonchi, - - Decreased breath sounds bilateral, more at the bases, crackles. Cardiovascular: Normal S1, Normal S2, No murmurs, PMI Normal, Irregular Rate, Tachycardic Abdomen: Bowel Sounds Present, Soft, Non Tender, Non-Distended, No Hepato- splenomegaly Extremities: No clubbing, No cyanosis, No edema Skin: No rashes, No breakdown Lymphatic: No Cervical, Supraclavicular, or Inguinal Adenopathy Neurological: Cranial nerves II-XII grossly intact, Motor Exam 5/5 strength throughout Psych/Mental Status: Normal Affect, Appropriate, Alert and oriented to time, place, person, mood and affect Vitals/I&O's: Vital Signs Temp Pulse Resp BP Pulse Ox 97.9 F 66 20 H 114/52 L 97 05/11/20 04:00 05/11/20 07:16 05/11/20 07:16 05/11/20 04:00 05/11/20 07:16 Oxygen Flow Rate (L/min) 4 Oxygen Delivery Method Nasal Cannula Weight: 115.7 kg Body Mass Index (BMI) 42.7 Intake and Output for Last 24 Hours 05/09/20 05/10/20 05/11/20 23:59 23:59 23:59 Intake Total 1060 / 1060 425 / 425 Output Total 400 / 400 125 / 125 Balance 660 / 660 300 / 300 Microbiology Past 72 Hours 05/08/20 15:35 Blood Culture (Wb) - Anticubital Right Blood Culture - Preliminary No growth in 48 hours. Laboratory Results 05/11/20 04:20: WBC 8.6, RBC 4.25 L, Hgb 12.0 L, Hct 40.0, MCV 94.1 H, MCH 28.2, MCHC 30.0 L, RDW Std Deviation 45.3 H, RDW Coeff of Earle 13.2, Plt Count 347, MPV 9.7 05/11/20 04:20: Sodium 142, Potassium 3.8, Chloride 103, Carbon Dioxide 36.0 H, Anion Gap 3 L, BUN 36 H, Creatinine 0.62 L, Estim Creat Clear Calc 60.65, Est GFR (MDRD) Af Amer 165, Est GFR (MDRD) Non-Af 137, BUN/Creatinine Ratio 58.1 H, Glucose 98, Calcium 7.7 L, Total Bilirubin 0.30, AST 25, ALT 41, Alkaline P hosphatase 50, Total Protein 6.7, Albumin 2.5 L, Globulin 4.2, Albumin/Globulin Ratio 0.6 L Current Medications Acetaminophen (Acetaminophen 325 Mg Tablet) 650 mg PO Q6H PRN PRN PRN Reason: Pain Score 1-10/Temp > 100.7 F Albuterol Sulfate (Albuterol 2.5 Mg/3 Ml Vial.Neb.) 2 mg INHALATION Q4H PRN PRN PRN Reason: Shortness of breath, wheezing Albuterol Sulfate (Albuterol 2.5 Mg/3 Ml Vial.Neb.) 2.5 mg INHALATION Q6HWA.RT [facility] Last Admin: 05/11/20 07:15 Dose: 2.5 mg Documented by: Dexamethasone Sodium Phosphate (Dexamethasone 10 Mg/Ml Vial) 6 mg IV DAILY [facility] Last Admin: 05/10/20 08:17 Dose: 6 mg Documented by: Enoxaparin Sodium (Enoxaparin 120 Mg/0.8 Ml Syringe) 120 mg SC BID [facility] Last Admin: 05/10/20 21:09 Dose: 120 mg Documented by: Finasteride (Finasteride 5 Mg Tablet) 5 mg PO DAILY [facility] Last Admin: 05/10/20 10:11 Dose: 5 mg Documented by: Furosemide (Furosemide 20 Mg Tablet) 20 mg PO DAILY [facility] Last Admin: 05/10/20 08:17 Dose: 20 mg Documented by: Remdesivir (Investigational) (100 mg/ Sodium Chloride) 250 mls @ 125 mls/hr IV DAILY [facility]; Protocol Stop: 05/13/20 11:59 Last Infusion: 05/10/20 12:30 Dose: Infused Documented by: Metoprolol Tartrate (Metoprolol Tartrate 25 Mg Tablet) 25 mg PO BID [facility] Last Admin: 05/10/20 21:08 Dose: 25 mg Documented by: Ondansetron HCl (Ondansetron 4 Mg/2 Ml Vial) 4 mg IV Q8H PRN PRN PRN Reason: NAUSEA/VOMITING Senna/Docusate Sodium (Senna/Docusate Sodium 1 Tablet) 2 tablet PO BID PRN PRN PRN Reason: Constipation Sodium Chloride (0.9% Saline Lock 10 Ml Syringe) 10 - 40 ml IV UD PRN PRN Reason: SALINE FLUSH Last Admin: 05/09/20 20:58 Dose: 10 ml Documented by: Tamsulosin HCl (Tamsulosin Hcl 0.4 Mg Capsule) 0.8 mg PO DAILY [facility] Last Admin: 05/10/20 08:17 Dose: 0.8 mg Documented by: Zolpidem Tartrate (Zolpidem Tartrate 5 Mg Tablet) 5 mg PO QHS PRN PRN PRN Reason: INSOMNIA STROKE Vital Signs/Narrative: Vital Signs Temp Pulse Resp BP Pulse Ox 05/11/20 07:16 66 20 H 97 05/11/20 04:00 97.9 F 64 15 114/52 L 97 Medical Necessity - Tobacco Use Smoking Status: Former smoker Tobacco Use: Cigarettes Assessment/Plan All Active Problems (Last Updated 05/08/20 @ 17:[address] Elle Billings MD) COVID-19 (Acute) New onset A. fib with RVR (Acute) 1. Acute respiratory insufficiency on chronic respiratory failure secondary to acute COVID-19 pneumonia, patient status worse Patient is on 4 L of oxygen; goes up to 8 L on minimal exertion on 2-3 L oxygen at home. Continue with aggressive pulmonary toileting, encourage use of incentive spirometer 2. Acute COVID-19 pneumonia, severe On IV dexamethasone, remdesivir. Received convalescent plasma on 05/09/20 ID following, pulmo consulted 3. New onset A. fib with RVR, in NSR, heart rate is controlled, on metoprolol and Lovenox subcu 4. Pulmonary hypertension, right ventricular systolic pressure was unable to be measured on the last 2D echo in 2014 Repeat 2D echo to be done in the outpatient 5. BPH, continue on Flomax 6. YENI on CPAP 7. DVT prophylaxis with Lovenox subcu Inpatient E&M: [id number] [facility] Hosp L3
[2020-05-11] MEDS: Tamsulosin HCl 0.4 MG Capsule 0.8 MG PO (08:58)
[2020-05-11] MEDS: dexAMETHasone 10 MG/ML Vial 6 MG IV (08:59)
[2020-05-11] MEDS: Finasteride 5 MG Tablet PO (08:59)
[2020-05-11] MEDS: Furosemide 20 MG Tablet PO (08:59)
[2020-05-11] MEDS: Metoprolol Tartrate 25 MG Tablet PO ×2 (08:59→22:25)
[2020-05-11] MEDS: Enoxaparin 120 MG/0.8 ML Syringe SC ×2 (09:00→22:26)
--- NOTE | 2020-05-11 22:45 | CPS ---
set up pts home CPAP unit for tonight with 4 lpm O2 bleed in
[2020-05-12] VITALS (16 sets, daily range): BP systolic 110–125; BP diastolic 48–69; PULSE 61–88; RESP 15–20; TEMP 36.4–36.8; O2SAT 93–97
[2020-05-12 05:29] LABS: Hematocrit 43.4 % (40-54); Hemoglobin 13.8 g/dL (13.0-16.5); Mean Corp Hgb Conc 31.8 g/dL (32-36); Mean Corpuscular Hgb 29.4 pg (27.0-32.0); Mean Corpuscular Volume 92.5 fL (80-94); Platelet Count 397 K/mm3 (150-450); RBC Distribution Width CV 13.1 % (11.6-14.6); RBC Distribution Width SD 44.5 fl (35.1-43.9); Red Blood Count 4.69 M/mm3 (4.6-6.2); White Blood Count 9.2 K/mm3 (4.4-11.0)
[2020-05-12 05:46] LABS: ALB/GLOB Ratio 0.6 RATIO (0.9-2.4); AST(SGOT) 45 U/L (15-37); Alanine Aminotransfer ALT/SGPT 78 U/L (16-61); Albumin, Serum 2.8 g/dL (3.2-5.0); Alkaline Phosphatase 57 U/L (45-117); Anion Gap 3 (5-15); BUN 28 mg/dL (7-18); BUN/Creat Ratio 47.4 RATIO (10-20); Calcium,Total 8.2 mg/dL (8.5-10.1); Chloride 101 mmol/L (98-107); Creatinine, Serum 0.59 mg/dL (0.70-1.30); EST Glomerular Filtration Rate 144 mL/min (>60); Est Glom Filt Rate - Afr Amer 175 mL/min (>60); Estimated Creatinine Clearance 60.65 ml/min; Globulin 4.7 g/dL (2.2-4.2); Glucose 102 mg/dL (74-106); Magnesium 2.8 mg/dL (1.6-2.6); Potassium 4.2 mmol/L (3.5-5.1); Protein, Total 7.5 g/dL (6.4-8.2); Sodium Level 139 mmol/L (136-145)
[2020-05-12] MEDS: Albuterol 2.5 MG/3 ML VIAL.NEB. INHALATION ×3 (07:24→19:12)
--- NOTE | 2020-05-12 07:35 | PN_ITS ---
Patient Problems: Active and Suspected Problems (Last Updated 05/08/20 @ 17:[address] Elle Billings MD) COVID-19 (Acute) New onset A. fib with RVR (Acute) Reason for Visit: Follow-up on COVID-19 infection/pneumonia Subjective: Patient was seen and examined. No acute events. Patient feels frustrated as he is not going to be discharged today. He has been desaturating with minimal exertion. Denies any fever or chills or diarrhea. Objective: Physical exam: General: Alert, Oriented x3, Cooperative, on 3L oxygen HEENT: Atraumatic, PERRLA, EOMI, Normocephalic Oral: Moist Mucosa, No Gingival or Mucosal Lesions/ Ulcerations Neck: Supple, No JVD, Negative Carotid Bruits, Trachea Midline, Thyroid Normal Size and Texture Lungs: No wheeze, Diminished, Rales, Rhonchi, - - Decreased breath sounds bilateral, more at the bases, crackles. Cardiovascular: Normal S1, Normal S2, No murmurs, PMI Normal, Irregular Rate, Tachycardic Abdomen: Bowel Sounds Present, Soft, Non Tender, Non-Distended, No Hepato- splenomegaly Extremities: No clubbing, No cyanosis, No edema Skin: No rashes, No breakdown Lymphatic: No Cervical, Supraclavicular, or Inguinal Adenopathy Neurological: Cranial nerves II-XII grossly intact, Motor Exam 5/5 strength throughout Psych/Mental Status: Normal Affect, Appropriate, Alert and oriented to time, place, person, mood and affect Vitals/I&O's: Vital Signs Temp Pulse Resp BP Pulse Ox 97.8 F 67 19 H 120/69 95 05/12/20 04:23 05/12/20 07:25 05/12/20 07:25 05/12/20 04:23 05/12/20 07:25 Oxygen Flow Rate (L/min) 3 Oxygen Delivery Method Nasal Cannula Weight: 115.7 kg Body Mass Index (BMI) 42.7 Intake and Output for Last 24 Hours 05/10/20 05/11/20 05/12/20 23:59 23:59 23:59 Intake Total 425 / 425 1250 / 1250 Output Total 125 / 125 Balance 300 / 300 1250 / 1250 Microbiology Past 72 Hours 05/08/20 16:24 Blood Culture (Wb) - Anticubital Left Blood Culture - P reliminary No growth in 48 hours. 05/08/20 15:35 Blood Culture (Wb) - Anticubital Right Blood Culture - Preliminary No growth in 48 hours. Laboratory Results 05/12/20 : WBC 9.2, RBC 4.69, Hgb 13.8, Hct 43.4, MCV 92.5, MCH 29.4, MCHC 31.8 L D, RDW Std Deviation 44.5 H, RDW Coeff of Earle 13.1, Plt Count 397, MPV 10.0 05/12/20 : Sodium 139, Potassium 4.2, Chloride 101, Carbon Dioxide 35.0 H, Anion Gap 3 L, BUN 28 H, Creatinine 0.59 L, Estim Creat Clear Calc 60.65, Est GFR (MDRD) Af Amer 175, Est GFR (MDRD) Non-Af 144, BUN/Creatinine Ratio 47.4 H, Glucose 102, Calcium 8.2 L, Magnesium 2.8 H, Total Bilirubin 0.40, AST 45 H, ALT 78 H, Alkaline Phosphatase 57, Total Protein 7.5, Albumin 2.8 L, Globulin 4.7 H, Albumin/Globulin Ratio 0.6 L Current Medications Acetaminophen (Acetaminophen 325 Mg Tablet) 650 mg PO Q6H PRN PRN PRN Reason: Pain Score 1-10/Temp > 100.7 F Albuterol Sulfate (Albuterol 2.5 Mg/3 Ml Vial.Neb.) 2 mg INHALATION Q4H PRN PRN PRN Reason: Shortness of breath, wheezing Albuterol Sulfate (Albuterol 2.5 Mg/3 Ml Vial.Neb.) 2.5 mg INHALATION Q6HWA.RT [facility] Last Admin: 05/12/20 07:24 Dose: 2.5 mg Documented by: Dexamethasone Sodium Phosphate (Dexamethasone 10 Mg/Ml Vial) 6 mg IV DAILY [facility] Last Admin: 05/11/20 08:59 Dose: 6 mg Documented by: Enoxaparin Sodium (Enoxaparin 120 Mg/0.8 Ml Syringe) 120 mg SC BID [facility] Last Admin: 05/11/20 22:26 Dose: 120 mg Documented by: Finasteride (Finasteride 5 Mg Tablet) 5 mg PO DAILY [facility] Last Admin: 05/11/20 08:59 Dose: 5 mg Documented by: Furosemide (Furosemide 20 Mg Tablet) 20 mg PO DAILY [facility] Last Admin: 05/11/20 08:59 Dose: 20 mg Documented by: Remdesivir (Investigational) (100 mg/ Sodium Chloride) 250 mls @ 125 mls/hr IV DAILY [facility]; Protocol Stop: 05/13/20 11:59 Last Infusion: 05/11/20 12:19 Dose: Infused Documented by: Metoprolol Tartrate (Metoprolol Tartrate 25 Mg Tablet) 25 mg PO BID [facility] Last Admin: 05/11/20 22:25 Dose: 25 mg Documented by: Ondansetron HCl (Ondansetron 4 Mg/2 Ml Vial) 4 mg IV Q8H PRN PRN PRN Reason: NAUSEA/VOMITING Senna/Docusate Sodium (Senna/Docusate Sodium 1 Tablet) 2 tablet PO BID PRN PRN PRN Reason: Constipation Sodium Chloride (0.9% Saline Lock 10 Ml Syringe) 10 - 40 ml IV UD PRN PRN Reason: SALINE FLUSH Last Admin: 05/09/20 20:58 Dose: 10 ml Documented by: Tamsulosin HCl (Tamsulosin Hcl 0.4 Mg Capsule) 0.8 mg PO DAILY [facility] Last Admin: 05/11/20 08:58 Dose: 0.8 mg Documented by: Zolpidem Tartrate (Zolpidem Tartrate 5 Mg Tablet) 5 mg PO QHS PRN PRN PRN Reason: INSOMNIA STROKE Vital Signs/Narrative: Vital Signs Temp Pulse Resp BP Pulse Ox 05/12/20 07:25 67 19 H 95 05/12/20 06:00 75 05/12/20 04:23 97.8 F 69 15 120/69 96 Medical Necessity - Tobacco Use Smoking Status: Former smoker Tobacco Use: Cigarettes Assessment/Plan All Active Problems (Last Updated 05/08/20 @ 17:[address] Elle Billings MD) COVID-19 (Acute) New onset A. fib with RVR (Acute) 70-year-old male with past medical history of COPD stage IV, pulmonary hypertension, YENI who presented initially on 05/05/20 to the ED with COVID-19 infection. He was sent home. He came back on 05/08/20 with aggressive shortness of breath, worse with ambulation and not improved with increase his oxygen to 4 L. 1. Acute on chronic respiratory failure secondary to acute COVID-19 pneumonia; patient's respiratory status remains tenuous Patient is on 4 L of oxygen; goes up to 8 L on minimal exertion. He is on 3L oxygen at home. Continue with aggressive pulmonary toileting, encourage use of incentive spirometer Pulmonology following 2. Acute COVID-19 pneumonia, severe with respiratory failure On IV dexamethasone, remdesivir. Received convalescent plasma on 05/09/20 ID following, pulmo consulted 3. New onset A. fib with RVR, currently in NSR, heart rate is controlled, on metoprolol and Lovenox subcu 4. Pulmonary hypertension, right ventricular systolic pressure was unable to be measured on the last 2D echo in 2014 Repeat 2D echo planned for in the outpatient 5. BPH, continue on Flomax 6. YENI on CPAP 7. DVT prophylaxis with Lovenox subcu Inpatient E&M: [id number] Subs Hosp L2
--- NOTE | 2020-05-12 08:00 | CON.PCM_ITS ---
Problem List (1) COVID-19 Status: Acute (2) New onset A. fib with RVR Status: Acute (3) Secondary pulmonary hypertension Status: Chronic (4) Stage 4 very severe COPD by GOLD classification Status: Chronic Comment: FEV1 29% (5) Sleep apnea Status: Chronic Qualifiers: Comment: AutoPap 10-14 cmH2O (6) Chronic respiratory failure Status: Chronic Qualifiers: Reason for Consult Date of Consultation: 05/12/20 Reason for Consultation: Protracted hypoxia History of Present Illness: The patient is a 70 year old M, with past medical history listed below and well- known to me from the outpatient office, who presented to [facility] on 05/08/2020 secondary to progressive shortness of breath over the previous 3 days. Chest x-ray had shown increasing infiltrates, but initially patient did not have tachypnea, fever or hypoxia. Patient was tested for COVID- 19 and found to be positive. Patient had reported a scant cough, but was unable to walk without becoming acutely dyspneic. Patient had been taking prednisone and Zithromax with little improvement. In the ER, patient was noted to be tachycardic at 121 bpm with an EKG showing atrial fibrillation. D-dimer was low at 0.6 and lactate was within normal limits. Chemistries were normal and patient had a mild leukocytosis of 10.7. Patient was admitted to the cohort unit for further evaluation. Since being admitted, patient has been on therapeutic Lovenox, steroids and Remdesivir. Patient did receive his plasma on 05/09/2020 and tolerated this well. Given persistence of hypoxia, a pulmonary consult was obtained. Patient overall states that he feels that he is improved. Patient states that he has not been compliant with his CPAP therapy since being in the hospital. Patient continues to have a cough that is intermittently productive of scant clear sputum. Patient denies any current chest pain, abdominal pain, nausea or vomiting. Patient has had regular bowel movements. Patient denies any lower extremity swelling. No fevers have been noted. Review of systems otherwise negative from a constitutional, HEENT, respiratory, cardiovascular, GI, genitourinary, musculoskeletal, skin, neurologic, psychiatric and hematologic system unless stated above. Past Medical History Past Medical History (Chronic Problems): Chronic Problems (Last Updated 05/08/20 @ 17:[address] Elle Billings MD) Secondary pulmonary hypertension (Chronic) Obesity (BMI 30-39.9) (Chronic) Stage 4 very severe COPD by GOLD classification (Chronic) FEV1 29% COPD (chronic obstructive pulmonary disease) (Chronic) FEV1 29% Sleep apnea (Chronic) AutoPap 10-14 cmH2O Chronic respiratory failure (Chronic) Medical History: Medical History (Last Updated 05/08/20 @ 17:[address] Elle Billings MD) COPD (chronic obstructive pulmonary disease) (Chronic) J44.9 FEV1 29% Sleep apnea (Chronic) G47.30 AutoPap 10-14 cmH2O Chronic respiratory failure (Chronic) J96.10 Secondary pulmonary hypertension Stage 4 very severe COPD by GOLD classification J44.9 Allergies No Known Allergies Allergy (Verified 05/08/20 15:19) Home Medications: Ambulatory Orders Medication Instructions Recorded Budesonide/Formoterol 160/4.5 2 puff INHALATION BID 02/22/15 [Symbicort 160/4.5 Mcg Inhaler (SP)] Tamsulosin HCl [Flomax] 0.8 mg PO DAILY 06/21/15 furosemide 20 mg tablet 20 mg PO QDAY 07/22/17 Azithromycin 250 mg PO QHS #4 tab 05/05/20 Finasteride [Proscar] 5 mg PO DAILY 05/05/20 Prednisone [Deltasone] 40 mg PO DAILY #10 tab 05/05/20 Tiotropium [place] [Spiriva 2 puff INHALATION DAILY 05/08/20 Respimat] Surgical History: Surgical History (Last Reviewed 03/22/19 @ 06:33 by Anabel Skinner) Total knee replacement status Z96.659 Surgical History: - - Head surgery as a child due to trauma. Psychiatric History: No pertinent psych hx Lives: Spouse/ Significant Other Smoking Status: Former smoker Tobacco Use: Cigarettes Alcohol: None Drugs: None - *Family History Maternal Family History: Family History (Last Reviewed 05/08/20 @ 17:[address] Elle Billings MD) Mother Cancer Father Heart disease History Items: - Paternal Family History: Family History (Last Reviewed 05/08/20 @ 17:[address] Elle Billings MD) Mother Cancer Father Heart disease History Items: - - mother of ovarian cancer Review of Systems Comment: See HPI Patient Problems: Active and Suspected Problems (Last Updated 05/08/20 @ 17:[address] Elle Billings MD) COVID-19 (Acute) New onset A. fib with RVR (Acute) Objective: All imaging was personally reviewed. Agree with formal interpretation. Complete PFT (11/24/2018): Partially reversible very severe large airways obstructive ventilatory defect with a symmetric reduction in diffusion capacity, resulting in air trapping with hyperinflation (FVC 59%, FEV1 26%, TLC 133%, RV 246%, DLCO 37%) Echocardiogram (02/21/2015): EF 55% with mild global hypokinesis. No shunt was noted. Patient did have some moderate diffuse aortic valve thickening. AutoPap compliance (February 2019): Compliant 100% of the time on AutoSet with an average pressure of 11 cmH2O with residual AHI of 3 and well-controlled leak - Physical Exam Vitals/I&O's: Vital Signs Temp Pulse Resp BP Pulse Ox 36.6 C 67 19 H 120/69 95 05/12/20 04:23 05/12/20 07:25 05/12/20 07:25 05/12/20 04:23 05/12/20 07:25 Oxygen Flow Rate (L/min) 3 Oxygen Delivery Method Nasal Cannula Weight: 115.7 kg Body Mass Index (BMI) 42.7 Intake and Output for Last 24 Hours 05/10/20 05/11/20 05/12/20 23:59 23:59 23:59 Intake Total 425 / 425 1250 / 1250 Output Total 125 / 125 Balance 300 / 300 1250 / 1250 General: Alert, Oriented x3, Cooperative, - - Mild conversational dyspnea. Morbidly obese. HEENT: Atraumatic, PERRLA, EOMI, Normocephalic, - - Glasses in place. Oral: Moist Mucosa, No Gingival or Mucosal Lesions/ Ulcerations, - - Crowded posterior pharynx Neck: Supple, No Nodes, Trachea Midline, JVD, Right Lungs: No rhonchi, No wheeze, No rales, Diminished, - - Symmetric expansion. No dullness to percussion. Cardiovascular: Normal S1, Normal S2, Irregular Rate, Murmur - Grade 2 out of 6 systolic ejection murmur at the right sternal border, No rub noted, No Gallop Abdomen: Bowel Sounds Present, Soft, Non Tender, Non-Distended Extremities: No cyanosis, Clubbing, Edema Skin: No rashes, No breakdown Musculoskeletal: No Tenderness to Palpation of Joints or Extremities Lymphatic: No Cervical, Supraclavicular, or Inguinal Adenopathy Neurological: Cranial nerves II-XII grossly intact, Neuro grossly intact, Motor Exam 5/5 strength throughout Psych/Mental Status: Alert and oriented to time, place, person, mood and affect Microbiology Past 72 Hours 05/08/20 16:24 Blood Culture (Wb) - Anticubital Left Blood Culture - Preliminary No growth in 48 hours. 05/08/20 15:35 Blood Culture (Wb) - Anticubital Right Blood Culture - Preliminary No growth in 48 hours. Laboratory Results 05/12/20 : WBC 9.2, RBC 4.69, Hgb 13.8, Hct 43.4, MCV 92.5, MCH 29.4, MCHC 31.8 L D, RDW Std Deviation 44.5 H, RDW Coeff of Earle 13.1, Plt Count 397, MPV 10.0 05/12/20 : Sodium 139, Potassium 4.2, Chloride 101, Carbon Dioxide 35.0 H, Anion Gap 3 L, BUN 28 H, Creatinine 0.59 L, Estim Creat Clear Calc 60.65, Est GFR (MDRD) Af Amer 175, Est GFR (MDRD) Non-Af 144, BUN/Creatinine Ratio 47.4 H, Glucose 102, Calcium 8.2 L, Magnesium 2.8 H, Total Bilirubin 0.40, AST 45 H, ALT 78 H, Alkaline Phosphatase 57, Total Protein 7.5, Albumin 2.8 L, Globulin 4.7 H, Albumin/Globulin Ratio 0.6 L Current Medications Acetaminophen (Acetaminophen 325 Mg Tablet) 650 mg PO Q6H PRN PRN PRN Reason: Pain Score 1-10/Temp > 100.7 F Albuterol Sulfate (Albuterol 2.5 Mg/3 Ml Vial.Neb.) 2 mg INHALATION Q4H PRN PRN PRN Reason: Shortness of breath, wheezing Albuterol Sulfate (Albuterol 2.5 Mg/3 Ml Vial.Neb.) 2.5 mg INHALATION Q6HWA.RT [facility] Last Admin: 05/12/20 07:24 Dose: 2.5 mg Documented by: Dexamethasone Sodium Phosphate (Dexamethasone 10 Mg/Ml Vial) 6 mg IV DAILY [facility] Last Admin: 05/11/20 08:59 Dose: 6 mg Documented by: Enoxaparin Sodium (Enoxaparin 120 Mg/0.8 Ml Syringe) 120 mg SC BID [facility] Last Admin: 05/11/20 22:26 Dose: 120 mg Documented by: Finasteride (Finasteride 5 Mg Tablet) 5 mg PO DAILY [facility] Last Admin: 05/11/20 08:59 Dose: 5 mg Documented by: Furosemide (Furosemide 20 Mg Tablet) 20 mg PO DAILY [facility] Last Admin: 05/11/20 08:59 Dose: 20 mg Documented by: Remdesivir (Investigational) (100 mg/ Sodium Chloride) 250 mls @ 125 mls/hr IV DAILY [facility]; Protocol Stop: 05/13/20 11:59 Last Infusion: 05/11/20 12:19 Dose: Infused Documented by: Metoprolol Tartrate (Metoprolol Tartrate 25 Mg Tablet) 25 mg PO BID [facility] Last Admin: 05/11/20 22:25 Dose: 25 mg Documented by: Ondansetron HCl (Ondansetron 4 Mg/2 Ml Vial) 4 mg IV Q8H PRN PRN PRN Reason: NAUSEA/VOMITING Senna/Docusate Sodium (Senna/Docusate Sodium 1 Tablet) 2 tablet PO BID PRN PRN PRN Reason: Constipation Sodium Chloride (0.9% Saline Lock 10 Ml Syringe) 10 - 40 ml IV UD PRN PRN Reason: SALINE FLUSH Last Admin: 05/09/20 20:58 Dose: 10 ml Documented by: Tamsulosin HCl (Tamsulosin Hcl 0.4 Mg Capsule) 0.8 mg PO DAILY [facility] Last Admin: 05/11/20 08:58 Dose: 0.8 mg Documented by: Zolpidem Tartrate (Zolpidem Tartrate 5 Mg Tablet) 5 mg PO QHS PRN PRN PRN Reason: INSOMNIA Assessment/Plan All Active Problems (Last Updated 05/08/20 @ 17:[address] Elle Billings MD) COVID-19 (Acute) New onset A. fib with RVR (Acute) RECOMMENDATIONS: 1. Continue COVID therapy as previously ordered 2. Lasix challenge 3. Could transition to DuoNeb therapy if patient fails to respond to diuretics 4. Encourage compliance with AutoPap therapy 5. Increase activity as tolerated IMPRESSIONS: 1. Acute on chronic respiratory failure secondary to acute COVID-19 pneumonia/COPD/pulmonary hypertension Patient with advanced lung disease at baseline with new onset exacerbation secondary to COVID-19. Unclear contribution of multifactorial etiology. Patient has not been compliant with his YENI therapy, which may be leading to increased pulmonary artery pressures. Recommend a diuretic challenge. Patient has had bronchodilator response in the past and may benefit from DuoNeb therapy, especially now that he is in normal sinus rhythm. Stressed to the patient the importance of keeping compliant with YENI therapy. Increase activity as tolerated. Pulmonary recruitment measures should be continued. Do anticipate somewhat protracted course given significant baseline dysfunction 2. Obstructive sleep apnea/pulmonary hypertension Patient is well controlled when he uses his AutoPap therapy. Would not recommend transition to BiPAP at this time, but AutoPap will control nocturnal hypoxia and potentially decrease risk for development of A. fib. Patient has not had a recent echocardiogram but has multiple possible etiologies for elevated pulmonary artery pressures. Will attempt diuresis. 3. New onset A. fib Patient currently in normal sinus rhythm. Clinical suspicion for degradation into A. fib secondary to multiple pulmonary insults. Maintain saturations in acceptable levels and compliance with AutoPap will help. RVR will be difficult to tolerate given diastolic dysfunction. 4. BPH/advanced age/morbid obesity Complicates care, management, recovery and prognosis. Okay to continue with baseline medications. Does not appear to have any obstructive symptoms. Inpatient E&M: [id number] Init Hosp L3
[2020-05-12] MEDS: dexAMETHasone 10 MG/ML Vial 6 MG IV (09:40)
[2020-05-12] MEDS: Enoxaparin 120 MG/0.8 ML Syringe SC ×2 (09:44→20:01)
[2020-05-12] MEDS: 0.9% Saline Lock 10 ML Syringe IV (09:44)
[2020-05-12] MEDS: Tamsulosin HCl 0.4 MG Capsule 0.8 MG PO (09:47)
[2020-05-12] MEDS: Metoprolol Tartrate 25 MG Tablet PO ×2 (09:49→20:01)
[2020-05-12] MEDS: Finasteride 5 MG Tablet PO (09:49)
--- NOTE | 2020-05-12 10:30 | NURSING ---
Dr. Shah is aware that po lasix is also ordered this morning. Dr. Shah wants pt to have po now and Iv lasix later this afternoon.
[2020-05-12] MEDS: Furosemide 20 MG Tablet PO (10:58)
[2020-05-12] MEDS: Furosemide 40 MG/4 ML Vial IV (16:48)
--- NOTE | 2020-05-12 18:33 | NURSING ---
Pt states he has gotten up to urinate at least 8 to 9 times thus far.
[2020-05-13] VITALS (8 sets, daily range): BP systolic 104–117; BP diastolic 51–54; PULSE 59–73; RESP 16–25; TEMP 36.3–36.6; O2SAT 88–98
[2020-05-13 04:32] LABS: Hematocrit 40.6 % (40-54); Hemoglobin 12.4 g/dL (13.0-16.5); Mean Corp Hgb Conc 30.5 g/dL (32-36); Mean Corpuscular Hgb 28.4 pg (27.0-32.0); Mean Corpuscular Volume 93.1 fL (80-94); Mean Platelet Vol. 10.1 fl (6.2-12.0); Platelet Count 365 K/mm3 (150-450); RBC Distribution Width CV 13.1 % (11.6-14.6); RBC Distribution Width SD 44.8 fl (35.1-43.9); Red Blood Count 4.36 M/mm3 (4.6-6.2); White Blood Count 8.1 K/mm3 (4.4-11.0)
[2020-05-13 04:47] LABS: D-Dimer Quantitative (DVT/PE) 0.36 FEU/ug/m (0.27-0.49)
[2020-05-13 04:49] LABS: ALB/GLOB Ratio 0.6 RATIO (0.9-2.4); AST(SGOT) 47 U/L (15-37); Alanine Aminotransfer ALT/SGPT 86 U/L (16-61); Albumin, Serum 2.6 g/dL (3.2-5.0); Alkaline Phosphatase 52 U/L (45-117); Anion Gap 2 (5-15); BUN 30 mg/dL (7-18); BUN/Creat Ratio 45.2 RATIO (10-20); Calcium,Total 7.8 mg/dL (8.5-10.1); Chloride 100 mmol/L (98-107); Creatinine, Serum 0.66 mg/dL (0.70-1.30); EST Glomerular Filtration Rate 126 mL/min (>60); Est Glom Filt Rate - Afr Amer 153 mL/min (>60); Estimated Creatinine Clearance 60.65 ml/min; Ferritin 236 ng/mL (26-388); Glucose 104 mg/dL (74-106); Magnesium 2.5 mg/dL (1.6-2.6); Potassium 4.5 mmol/L (3.5-5.1); Protein, Total 6.6 g/dL (6.4-8.2); Sodium Level 139 mmol/L (136-145)
[2020-05-13 05:09] LABS: Procalcitonin 0.08 ng/mL (0.00-0.09)
--- NOTE | 2020-05-13 06:16 | PCM.PN.PUL ---
Patient Problems: Active and Suspected Problems (Last Updated 05/08/20 @ 17:[address] Elle Billings MD) COVID-19 (Acute) New onset A. fib with RVR (Acute) Subjective: The patient was seen and examined at the bedside this morning. Events from the last 24 hours have been reviewed. The patient is currently afebrile, hemodynamically stable and maintaining appropriate oxygen saturations on 3 L/min via nasal cannula. The patient did tolerate CPAP overnight. The patient is currently receiving scheduled Decadron, twice daily Lovenox, Remdesevir and lasix. Objective: The patient's most recent lab work, culture data and imaging studies have all been personally reviewed. The patient had a positive coronavirus PCR noted on May 05. - Physical Exam Vitals/I&O's: Vital Signs Temp Pulse Resp BP Pulse Ox 97.9 F 59 L 20 H 117/51 L 98 05/13/20 01:57 05/13/20 04:00 05/13/20 01:57 05/13/20 01:57 05/13/20 01:57 Oxygen Flow Rate (L/min) 5 Oxygen Delivery Method CPAP Weight: 255 lb 15.307 oz Body Mass Index (BMI) 42.7 Intake and Output for Last 24 Hours 05/11/20 05/12/20 05/13/20 23:59 23:59 23:59 Intake Total 1250 / 1250 250 / 250 Balance 1250 / 1250 250 / 250 General: Alert, Cooperative, No apparent distress HEENT: Atraumatic, Normocephalic Oral: Moist Mucosa, No Gingival or Mucosal Lesions/ Ulcerations Neck: Supple, No Nodes, Trachea Midline Lungs: Diminished Cardiovascular: Regular Rhythm, Normal S1, Normal S2, Murmur Abdomen: Bowel Sounds Present, Soft, Non Tender, Obese Extremities: No clubbing, No cyanosis Skin: No breakdown Musculoskeletal: No Tenderness to Palpation of Joints or Extremities, No Muscle Wasting Lymphatic: No Cervical, Supraclavicular, or Inguinal Adenopathy Neurological: Cranial nerves II-XII grossly intact, Neuro grossly intact Psych/Mental Status: Normal Affect, Appropriate Labs (Last 48 Hours) 05/12/20 05/12/20 05/13/20 Unknown Unknown 04:15 WBC 9.2 8.1 RBC 4.69 4.36 L Hgb 13.8 12.4 L Hct 43.4 40.6 MCV 92.5 93.1 MCH 29.4 28.4 MCHC 31.8 L D 30.5 L RDW Std Deviation 44.5 H 44.8 H RDW Coeff of Earle 13.1 13.1 Plt Count 397 365 MPV 10.0 10.1 D-Dimer Quant (PE/DVT) Sodium 139 Potassium 4.2 Chloride 101 Carbon Dioxide 35.0 H Anion Gap 3 L BUN 28 H Creatinine 0.59 L Estim Creat Clear Calc 60.65 Est GFR (MDRD) Af Amer 175 Est GFR (MDRD) Non-Af 144 BUN/Creatinine Ratio 47.4 H Glucose 102 Calcium 8.2 L Magnesium 2.8 H Ferritin Total Bilirubin 0.40 AST 45 H ALT 78 H Alkaline Phosphatase 57 C-React Prot Ext Range Total Protein 7.5 Albumin 2.8 L Globulin 4.7 H Albumin/Globulin Ratio 0.6 L Procalcitonin 05/13/20 05/13/20 05/13/20 04:15 04:15 04:15 WBC RBC Hgb Hct MCV MCH MCHC RDW Std Deviation RDW Coeff of Earle Plt Count MPV D-Dimer Quant (PE/DVT) 0.36 Sodium 139 Potassium 4.5 Chloride 100 Carbon Dioxide 37.0 H Anion Gap 2 L BUN 30 H Creatinine 0.66 L Estim Creat Clear Calc 60.65 Est GFR (MDRD) Af Amer 153 Est GFR (MDRD) Non-Af 126 BUN/Creatinine Ratio 45.2 H Glucose 104 Calcium 7.8 L Magnesium 2.5 Ferritin 236 Total Bilirubin 0.30 AST 47 H ALT 86 H Alkaline Phosphatase 52 C-React Prot Ext Range 12.10 H Total Protein 6.6 Albumin 2.6 L Globulin 4.0 Albumin/Globulin Ratio 0.6 L Procalcitonin 0.08 Microbiology 05/08/20 16:24 Blood Culture (Wb) - Anticubital Left Blood Culture - Preliminary No growth in 48 hours. Clinical Impression(s) from Imaging Studies Chest X-Ray 05/08/20 16:00 IMPRESSION: No interval change Electronically Signed: Hans Sheikh MD at 16:27 EDT , Service support , Chest CTA 05/08/20 18:10 IMPRESSION: 1. No demonstrated pulmonary embolism or arterial dissection. 2. Mild to moderate diffuse interstitial thickening/fibrosis seen throughout both lungs most significant in the inferior aspect of the left upper lobe. Additional triangle shaped atelectasis or fibrosis is seen in the lingula of the left upper lobe. 3. Diffuse cystic emphysematous changes are present as well as hyperinflation. No visualized focal pneumonic consolidation. 4. No significant active pulmonary edema. No demonstrated nodules. Electronically Signed: Russell Thomas MD at 20:20 EDT , Service support , Current Medications Acetaminophen (Acetaminophen 325 Mg Tablet) 650 mg PO Q6H PRN PRN PRN Reason: Pain Score 1-10/Temp > 100.7 F Albuterol Sulfate (Albuterol 2.5 Mg/3 Ml Vial.Neb.) 2 mg INHALATION Q4H PRN PRN PRN Reason: Shortness of breath, wheezing Albuterol Sulfate (Albuterol 2.5 Mg/3 Ml Vial.Neb.) 2.5 mg INHALATION Q6HWA.RT [facility] Last Admin: 05/12/20 19:12 Dose: 2.5 mg Documented by: Dexamethasone Sodium Phosphate (Dexamethasone 10 Mg/Ml Vial) 6 mg IV DAILY ON LICENSE OF [facility] Last Admin: 05/12/20 09:40 Dose: 6 mg Documented by: Enoxaparin Sodium (Enoxaparin 120 Mg/0.8 Ml Syringe) 120 mg SC BID ON LICENSE OF [facility] Last Admin: 05/12/20 20:01 Dose: 120 mg Documented by: Finasteride (Finasteride 5 Mg Tablet) 5 mg PO DAILY ON LICENSE OF [facility] Last Admin: 05/12/20 09:49 Dose: 5 mg Documented by: Furosemide (Furosemide 20 Mg Tablet) 20 mg PO DAILY ON LICENSE OF [facility] Last Admin: 05/12/20 10:58 Dose: 20 mg Documented by: Remdesivir (Investigational) (100 mg/ Sodium Chloride) 250 mls @ 125 mls/hr IV DAILY ON LICENSE OF [facility]; Protocol Stop: 05/13/20 11:59 Last Infusion: 05/12/20 11:45 Dose: Infused Documented by: Metoprolol Tartrate (Metoprolol Tartrate 25 Mg Tablet) 25 mg PO BID ON LICENSE OF [facility] Last Admin: 05/12/20 20:01 Dose: 25 mg Documented by: Ondansetron HCl (Ondansetron 4 Mg/2 Ml Vial) 4 mg IV Q8H PRN PRN PRN Reason: NAUSEA/VOMITING Senna/Docusate Sodium (Senna/Docusate Sodium 1 Tablet) 2 tablet PO BID PRN PRN PRN Reason: Constipation Sodium Chloride (0.9% Saline Lock 10 Ml Syringe) 10 - 40 ml IV UD PRN PRN Reason: SALINE FLUSH Last Admin: 05/12/20 09:44 Dose: 10 ml Documented by: Tamsulosin HCl (Tamsulosin Hcl 0.4 Mg Capsule) 0.8 mg PO DAILY [facility] Last Admin: 05/12/20 09:47 Dose: 0.8 mg Documented by: Zolpidem Tartrate (Zolpidem Tartrate 5 Mg Tablet) 5 mg PO QHS PRN PRN PRN Reason: INSOMNIA Medical Necessity - Tobacco Use Smoking Status: Former smoker Tobacco Use: Cigarettes Assessment/Plan All Active Problems (Last Updated 05/08/20 @ 17:[address] Elle Billings MD) COVID-19 (Acute) New onset A. fib with RVR (Acute) RECOMMENDATIONS: 1. Continue remdesivir and Decadron (10 day course) 2. Wean supplemental oxygen as tolerated. 3. Continue diuretic therapy per home regimen. 4. Continue bronchodilator therapy. 5. Continue nocturnal CPAP therapy. IMPRESSIONS: 1. Acute on chronic hypoxemic respiratory failure secondary to Covid pneumonia/COPD/pulmonary hypertension The patient does have advanced age COPD and is currently in a state of exacerbation due to his viral pneumonia. The patient has already received full supportive measures including convalescent plasma, remdesivir and Decadron. His oxygenation status is also improved with gentle diuresis. The patient is currently maintaining appropriate oxygen saturations on his baseline supplemental oxygen requirement. 2. Obstructive sleep apnea Continue nocturnal Pap therapy per home regimen. 3. New onset atrial fibrillation Resolved. The patient remains in normal sinus rhythm. 4. BPH/advanced age/morbid obesity Complicates care, management, recovery and prognosis. This note was generated with [employer] software. It may contain incorrect words, spelling, and punctuation that were not noted in checking the note before signing. Inpatient E&M: 04336 Subs Hosp L2
[2020-05-13] MEDS: Albuterol 2.5 MG/3 ML VIAL.NEB. INHALATION ×2 (07:08→13:21)
--- NOTE | 2020-05-13 07:56 | PN_ITS ---
Patient Problems: Active and Suspected Problems (Last Updated 05/08/20 @ 17:[address] Elle Billings MD) COVID-19 (Acute) New onset A. fib with RVR (Acute) Vitals/I&O's: Vital Signs Temp Pulse Resp BP Pulse Ox 97.9 F 64 18 117/51 L 95 05/13/20 01:57 05/13/20 07:10 05/13/20 07:10 05/13/20 01:57 05/13/20 07:10 Oxygen Flow Rate (L/min) 3 Oxygen Delivery Method Nasal Cannula Weight: 255 lb 15.307 oz Body Mass Index (BMI) 42.7 Intake and Output for Last 24 Hours 05/11/20 05/12/20 05/13/20 23:59 23:59 23:59 Intake Total 1250 / 1250 250 / 250 Balance 1250 / 1250 250 / 250 Microbiology Past 72 Hours 05/08/20 16:24 Blood Culture (Wb) - Anticubital Left Blood Culture - Preliminary No growth in 48 hours. 05/08/20 15:35 Blood Culture (Wb) - Anticubital Right Blood Culture - Preliminary No growth in 48 hours. Laboratory Results 05/13/20 04:15: WBC 8.1, RBC 4.36 L, Hgb 12.4 L, Hct 40.6, MCV 93.1, MCH 28.4, MCHC 30.5 L, RDW Std Deviation 44.8 H, RDW Coeff of Earle 13.1, Plt Count 365, MPV 10.1 05/13/20 04:15: Sodium 139, Potassium 4.5, Chloride 100, Carbon Dioxide 37.0 H, Anion Gap 2 L, BUN 30 H, Creatinine 0.66 L, Estim Creat Clear Calc 60.65, Est GFR (MDRD) Af Amer 153, Est GFR (MDRD) Non-Af 126, BUN/Creatinine Ratio 45.2 H, Glucose 104, Calcium 7.8 L, Magnesium 2.5, Ferritin 236, Total Bilirubin 0.30, AST 47 H, ALT 86 H, Alkaline Phosphatase 52, C-React Prot Ext Range 12.10 H, Total Protein 6.6, Albumin 2.6 L, Globulin 4.0, Albumin/Globulin Ratio 0.6 L 05/13/20 04:15: D-Dimer Quant (PE/DVT) 0.36 05/13/20 04:15: Procalcitonin 0.08 Current Medications Acetaminophen (Acetaminophen 325 Mg Tablet) 650 mg PO Q6H PRN PRN PRN Reason: Pain Score 1-10/Temp > 100.7 F Albuterol Sulfate (Albuterol 2.5 Mg/3 Ml Vial.Neb.) 2 mg INHALATION Q4H PRN PRN PRN Reason: Shortness of breath, wheezing Albuterol Sulfate (Albuterol 2.5 Mg/3 Ml Vial.Neb.) 2.5 mg INHALATION Q6HWA.RT [facility] Last Admin: 05/13/20 07:08 Dose: 2.5 mg Documented by: Dexamethasone Sodium Phosphate (Dexamethasone 10 Mg/Ml Vial) 6 mg IV DAILY [facility] Last Admin: 05/12/20 09:40 Dose: 6 mg Documented by: Enoxaparin Sodium (Enoxaparin 120 Mg/0.8 Ml Syringe) 120 mg SC BID [facility] Last Admin: 05/12/20 20:01 Dose: 120 mg Documented by: Finasteride (Finasteride 5 Mg Tablet) 5 mg PO DAILY [facility] Last Admin: 05/12/20 09:49 Dose: 5 mg Documented by: Furosemide (Furosemide 20 Mg Tablet) 20 mg PO DAILY [facility] Last Admin: 05/12/20 10:58 Dose: 20 mg Documented by: Remdesivir (Investigational) (100 mg/ Sodium Chloride) 250 mls @ 125 mls/hr IV DAILY [facility]; Protocol Stop: 05/13/20 11:59 Last Infusion: 05/12/20 11:45 Dose: Infused Documented by: Metoprolol Tartrate (Metoprolol Tartrate 25 Mg Tablet) 25 mg PO BID [facility] Last Admin: 05/12/20 20:01 Dose: 25 mg Documented by: Ondansetron HCl (Ondansetron 4 Mg/2 Ml Vial) 4 mg IV Q8H PRN PRN PRN Reason: NAUSEA/VOMITING Senna/Docusate Sodium (Senna/Docusate Sodium 1 Tablet) 2 tablet PO BID PRN PRN PRN Reason: Constipation Sodium Chloride (0.9% Saline Lock 10 Ml Syringe) 10 - 40 ml IV UD PRN PRN Reason: SALINE FLUSH Last Admin: 05/12/20 09:44 Dose: 10 ml Documented by: Tamsulosin HCl (Tamsulosin Hcl 0.4 Mg Capsule) 0.8 mg PO DAILY [facility] Last Admin: 05/12/20 09:47 Dose: 0.8 mg Documented by: Zolpidem Tartrate (Zolpidem Tartrate 5 Mg Tablet) 5 mg PO QHS PRN PRN PRN Reason: INSOMNIA STROKE Vital Signs/Narrative: Vital Signs Pulse Resp Pulse Ox 05/13/20 07:10 64 18 95 05/13/20 04:00 59 L Medical Necessity - Tobacco Use Smoking Status: Former smoker Tobacco Use: Cigarettes Assessment/Plan All Active Problems (Last Updated 05/08/20 @ 17:[address] Elle Billings MD) COVID-19 (Acute) New onset A. fib with RVR (Acute) 70-year-old male with past medical history of COPD stage IV, pulmonary hypertension, YENI who presented initially on 05/05/20 to the ED with COVID-19 infection. He was sent home. He came back on 05/08/20 with aggressive shortness of breath, worse with ambulation and not improved with increase his oxygen to 4 L. 1. Acute on chronic respiratory failure secondary to acute COVID-19 pneumonia; patient's respiratory status remains tenuous Patient is on 4 L of oxygen; goes up to 8 L on minimal exertion. He is on 3L oxygen at home. Continue with aggressive pulmonary toileting, encourage use of incentive spirometer Pulmonology following 2. Acute COVID-19 pneumonia, severe with respiratory failure On IV dexamethasone, remdesivir. Received convalescent plasma on 05/09/20 ID following, pulmo consulted 3. New onset A. fib with RVR, currently in NSR, heart rate is controlled, on metoprolol and Lovenox subcu 4. Pulmonary hypertension, right ventricular systolic pressure was unable to be measured on the last 2D echo in 2014 Repeat 2D echo planned for in the outpatient 5. BPH, continue on Flomax 6. YENI on CPAP 7. DVT prophylaxis with Lovenox subcu
--- NOTE | 2020-05-13 08:55 | DCINST_ITS ---
- Discharge Diagnoses Current Active Problems: Current Active and Chronic Problems (Last Updated 05/08/20 @ 17:[address] Elle Billings MD) COVID-19 (Acute) New onset A. fib with RVR (Acute) Secondary pulmonary hypertension (Chronic) Obesity (BMI 30-39.9) (Chronic) Stage 4 very severe COPD by GOLD classification (Chronic) FEV1 29% Sleep apnea (Chronic) AutoPap 10-14 cmH2O Chronic respiratory failure (Chronic) You will use the following diet at home:: Cardiac Your food should be the consistency of: Regular Discharge Activity: May Not Drive - Follow-up PCP Weight Bearing Status: Weight bearing as tolerated Call your doctor if you observe: Fever of 101 or Higher, Coldness, Increased Pain, Numbness or Tingling, Inability to urinate, Inability to have a bowel movement, Shortness of breath, Dizziness, Fainting spells, Swelling in the ankles, Chest pain, Prolonged hiccoughing, Calf discomfort, Uncontrolled pain Allergies/Adverse Reactions: Allergies No Known Allergies Allergy (Verified 05/08/20 15:19) Medications to take at Discharge Budesonide/Formoterol 160/4.5 [Symbicort 160/4.5 Mcg Inhaler (SP)] 2 puff INHALATION BID 02/22/15 Tamsulosin HCl [Flomax] 0.8 mg PO DAILY 06/21/15 furosemide 20 mg tablet 20 mg PO QDAY 07/22/17 Finasteride [Proscar] 5 mg PO DAILY 05/05/20 Tiotropium [place] [Spiriva Respimat] 2 puff INHALATION DAILY 05/08/20 Apixaban [Eliquis] 5 mg PO BID #60 tab 05/13/20 Dexamethasone [Decadron] 6 mg PO DAILY 5 Days #5 tab 05/13/20 Metoprolol Tartrate [Lopressor (beta robert)] 25 mg PO BID #60 tab 05/13/20 The following prescriptions were given: Dexamethasone [Decadron] 6 mg PO DAILY 5 Days #5 tab Transmission Status: Received by [facility] Apixaban [Eliquis] 5 mg PO BID #60 tab Transmission Status: Received by [facility] Metoprolol Tartrate [Lopressor (beta robert)] 25 mg PO BID #60 tab Transmission Status: Received by [facility] Primary Care Physician: Earle Espinoza MD [Primary Care Provider] - Please follow up with your Primary Care Physician in: 2 weeks Test Results: Test results from this visit will be discussed in further detail at your follow- up appointment, if applicable. Please Follow Up With: Yandel Shah MD When: in 2 weeks Please Follow Up With: Eric Barker MD When: new onset A fib Please Follow Up With: Navi Field MD When: as needed for COVID-19 pneumonia
--- NOTE | 2020-05-13 08:55 | DS.PCM_ITS ---
Discharge Date and Diagnosis - Problem List Patient Problems: Active and Suspected Problems (Last Updated 05/08/20 @ 17:[address] Elle Billings MD) COVID-19 (Acute) New onset A. fib with RVR (Acute) Date of Admission: 05/08/20 Date of Discharge: 05/13/20 - Primary Discharge Diagnosis Acute Problems: Active Problems (Last Updated 05/08/20 @ 17:[address] Elle Billings MD) COVID-19 (Acute) New onset A. fib with RVR (Acute) - Secondary Discharge Diagnosis Chronic Problems: Chronic Problems (Last Updated 05/08/20 @ 17:[address] Elle Billings MD) Secondary pulmonary hypertension (Chronic) Obesity (BMI 30-39.9) (Chronic) Stage 4 very severe COPD by GOLD classification (Chronic) FEV1 29% COPD (chronic obstructive pulmonary disease) (Chronic) FEV1 29% Sleep apnea (Chronic) AutoPap 10-14 cmH2O Chronic respiratory failure (Chronic) Hospital Course and Treatment Operations: None Summary of Care Provided: The patient is a 70-year-old male with past medical history of COPD stage IV, pulmonary hypertension, YENI who was admitted on 05/08/20 with aggressive shortness of breath, worse with ambulation and not improved with increase his oxygen to 4 L with the diagnosis of COVID-19 consistent with COVID-19 pneumonia. 1. Acute on chronic respiratory failure secondary to acute COVID-19 pneumonia. Patient respiratory status improved. He is on baseline 3 L of oxygen. Continue incentive spirometry at home. Follow-up with pulmonary as an outpatient. 2. Acute COVID-19 pneumonia, severe with respiratory failure Patient is discharged Decadron to complete a total of 10 days and 2 days the last day of his remdesivir. Received convalescent plasma on 05/09/20. 3. New onset A. fib with RVR, currently in NSR, heart rate is controlled, on metoprolol and Lovenox subcu Patient is discharged on metoprolol and Eliquis 4. Pulmonary hypertension, right ventricular systolic pressure was unable to be measured on the last 2D echo in 2014 Interpretation Summary The estimated ejection fraction is 55 %. There is mild global hypokinesis of the left ventricle. Bubble contrast study negative for right to left interatrial shunt. Unable to estimate RV systolic pressure. Mild-Moderate (1-2+) aortic valve insufficiency. Repeat 2D echo planned for as the outpatient 5. BPH, continue on Flomax 6. YENI on CPAP 7. DVT prophylaxis with Lovenox subcu Discharge medication reconciliation done. Discharge follow-up instructions completed. Discharge process discussed with the patient and all questions were answered to patient's satisfaction. Prescription for metoprolol, Eliquis and Decadron sent to the pharmacy. Total time spent, exact 35 minutes on discharge meds reconciliation, examination, coordination of care with nurses and ancillary staff, review of imaging and blood test and discussion with the patient on follow-up instructions Patient Problems: Active and Suspected Problems (Last Updated 05/08/20 @ 17:[address] Elle Billings MD) COVID-19 (Acute) New onset A. fib with RVR (Acute) Objective: Seen and examined. No fever. Heart rate is controlled. Patient has minimal cough, not productive. No nausea, vomiting or diarrhea Blood pressure is controlled. On 3 L of oxygen. Patient wants to go home Physical exam: General: Alert, Oriented x3, Cooperative HEENT: Atraumatic, PERRLA, EOMI, Normocephalic Oral: No Gingival or Mucosal Lesions/ Ulcerations Neck: Supple, No JVD, Negative Carotid Bruits Lungs: Air entry diminished in bilateral lung bases. No crepitation/rhonchi Cardiovascular: Regular rate, Regular Rhythm, Normal S1, Normal S2, No murmurs Abdomen: Bowel Sounds Present, Soft, Non Tender, Non-Distended : No renal angle tenderness. No suprapubic tenderness. Extremities: No edema, Capillary Refill Less than 3 Seconds Skin: No rashes, No breakdown Musculoskeletal: No Tenderness to Palpation of Joints or Extremities Neurological: Cranial nerves II-XII grossly intact, Deep Tendon Reflexes 2+/4 and Symmetrical, Neuro grossly intact Psych/Mental Status: Normal Affect, Appropriate. - Physical Exam Vitals/I&O's: Vital Signs Temp Pulse Resp BP Pulse Ox 97.3 F L 71 18 104/54 L 94 05/13/20 07:58 05/13/20 07:58 05/13/20 07:58 05/13/20 07:58 05/13/20 07:58 Oxygen Flow Rate (L/min) 3 Oxygen Delivery Method Nasal Cannula Weight: 255 lb 15.307 oz Body Mass Index (BMI) 42.7 Intake and Output for Last 24 Hours 05/11/20 05/12/20 05/13/20 23:59 23:59 23:59 Intake Total 1250 / 1250 250 / 250 Balance 1250 / 1250 250 / 250 Microbiology Past 72 Hours 05/08/20 16:24 Blood Culture (Wb) - Anticubital Left Blood Culture - Preliminary No growth in 48 hours. 05/08/20 15:35 Blood Culture (Wb) - Anticubital Right Blood Culture - Preliminary No growth in 48 hours. Laboratory Results 05/13/20 04:15: WBC 8.1, RBC 4.36 L, Hgb 12.4 L, Hct 40.6, MCV 93.1, MCH 28.4, MCHC 30.5 L, RDW Std Deviation 44.8 H, RDW Coeff of Earle 13.1, Plt Count 365, MPV 10.1 05/13/20 04:15: Sodium 139, Potassium 4.5, Chloride 100, Carbon Dioxide 37.0 H, Anion Gap 2 L, BUN 30 H, Creatinine 0.66 L, Estim Creat Clear Calc 60.65, Est GFR (MDRD) Af Amer 153, Est GFR (MDRD) Non-Af 126, BUN/Creatinine Ratio 45.2 H, Glucose 104, Calcium 7.8 L, Magnesium 2.5, Ferritin 236, Total Bilirubin 0.30, AST 47 H, ALT 86 H, Alkaline Phosphatase 52, C-React Prot Ext Range 12.10 H, Total Protein 6.6, Albumin 2.6 L, Globulin 4.0, Albumin/Globulin Ratio 0.6 L 05/13/20 04:15: D-Dimer Quant (PE/DVT) 0.36 05/13/20 04:15: Procalcitonin 0.08 Current Medications Acetaminophen (Acetaminophen 325 Mg Tablet) 650 mg PO Q6H PRN PRN PRN Reason: Pain Score 1-10/Temp > 100.7 F Albuterol Sulfate (Albuterol 2.5 Mg/3 Ml Vial.Neb.) 2 mg INHALATION Q4H PRN PRN PRN Reason: Shortness of breath, wheezing Albuterol Sulfate (Albuterol 2.5 Mg/3 Ml Vial.Neb.) 2.5 mg INHALATION Q6HWA.RT [facility] Last Admin: 05/13/20 07:08 Dose: 2.5 mg Documented by: Dexamethasone Sodium Phosphate (Dexamethasone 10 Mg/Ml Vial) 6 mg IV DAILY [facility] Last Admin: 05/12/20 09:40 Dose: 6 mg Documented by: Enoxaparin Sodium (Enoxaparin 120 Mg/0.8 Ml Syringe) 120 mg SC BID [facility] Last Admin: 05/12/20 20:01 Dose: 120 mg Documented by: Finasteride (Finasteride 5 Mg Tablet) 5 mg PO DAILY [facility] Last Admin: 05/12/20 09:49 Dose: 5 mg Documented by: Furosemide (Furosemide 20 Mg Tablet) 20 mg PO DAILY [facility] Last Admin: 05/12/20 10:58 Dose: 20 mg Documented by: Remdesivir (Investigational) (100 mg/ Sodium Chloride) 250 mls @ 125 mls/hr IV DAILY [facility]; Protocol Stop: 05/13/20 11:59 Last Infusion: 05/12/20 11:45 Dose: Infused Documented by: Metoprolol Tartrate (Metoprolol Tartrate 25 Mg Tablet) 25 mg PO BID [facility] Last Admin: 05/12/20 20:01 Dose: 25 mg Documented by: Ondansetron HCl (Ondansetron 4 Mg/2 Ml Vial) 4 mg IV Q8H PRN PRN PRN Reason: NAUSEA/VOMITING Senna/Docusate Sodium (Senna/Docusate Sodium 1 Tablet) 2 tablet PO BID PRN PRN PRN Reason: Constipation Sodium Chloride (0.9% Saline Lock 10 Ml Syringe) 10 - 40 ml IV UD PRN PRN Reason: SALINE FLUSH Last Admin: 05/12/20 09:44 Dose: 10 ml Documented by: Tamsulosin HCl (Tamsulosin Hcl 0.4 Mg Capsule) 0.8 mg PO DAILY [facility] Last Admin: 05/12/20 09:47 Dose: 0.8 mg Documented by: Zolpidem Tartrate (Zolpidem Tartrate 5 Mg Tablet) 5 mg PO QHS PRN PRN PRN Reason: INSOMNIA Home Medications: Medications to take at Discharge Budesonide/Formoterol 160/4.5 [Symbicort 160/4.5 Mcg Inhaler (SP)] 2 puff INHALATION BID 02/22/15 Tamsulosin HCl [Flomax] 0.8 mg PO DAILY 06/21/15 furosemide 20 mg tablet 20 mg PO QDAY 07/22/17 Finasteride [Proscar] 5 mg PO DAILY 05/05/20 Tiotropium [place] [Spiriva Respimat] 2 puff INHALATION DAILY 05/08/20 Apixaban [Eliquis] 5 mg PO BID #60 tab 05/13/20 Dexamethasone [Decadron] 6 mg PO DAILY 5 Days #5 tab 05/13/20 Metoprolol Tartrate [Lopressor (beta robert)] 25 mg PO BID #60 tab 05/13/20 Following Prescriptions Were Given to Patient: Dexamethasone [Decadron] 6 mg PO DAILY 5 Days #5 tab Transmission Status: Received by [facility] Apixaban [Eliquis] 5 mg PO BID #60 tab Transmission Status: Received by [facility] Metoprolol Tartrate [Lopressor (beta robert)] 25 mg PO BID #60 tab Transmission Status: Received by [facility] Primary Care Physician: Earle Espinoza MD [Primary Care Provider] - Medical Necessity - Tobacco Use Smoking Status: Former smoker Tobacco Use: Cigarettes Meaningful Use Info Meaningful Use Diagnoses (Choose all that apply): None applicable Inpatient E&M: 93939 [facility]
[2020-05-13] MEDS: Finasteride 5 MG Tablet PO (10:17)
[2020-05-13] MEDS: Metoprolol Tartrate 25 MG Tablet PO (10:17)
[2020-05-13] MEDS: Tamsulosin HCl 0.4 MG Capsule 0.8 MG PO (10:17)
[2020-05-13] MEDS: Enoxaparin 120 MG/0.8 ML Syringe SC (10:18)
[2020-05-13] MEDS: dexAMETHasone 10 MG/ML Vial 6 MG IV (10:18)
[2020-05-13] MEDS: Furosemide 20 MG Tablet PO (10:18)
--- NOTE | 2020-05-13 10:41 | CASEMGMT ---
Addendum entered by Laurel Yates 05/13/20 12:26: Pt will d/c home on Eliquis, which has been e-scribed to [facility]. Call placed to Al[facility] @ [facility] for phan check on Eliquis. She states they tried to apply the Eliquis 30-day trial offer card, but it did not go through, but pt's co-pay is only $8.95, and refills should remain the same unless pt's insurance plan changes. Original Note: KALYANI PAYNE: Home Oxygen testing has been completed and pt does not qualify for any further oxygen than his baseline O2 of 3 L/M. PT/OT evals have been reviewed and additional PT is recommended. Call placed to pt in his room and he was made aware. Discussed HHC at this time. Pt declines, stating I'm feeling all right. I'm ready to go home and I feel like I'm getting my strength back. Pt made aware, if he decides once he gets home that he wants HHC/additional therapy, to discuss this with his PCP. Pt voices understanding. Reinforced w/pt home quarantine precautions, that his should self-quarantine x 14 days, and reviewed again with him that they should sleep in separate bedrooms, use separate bathrooms, wears masks, and try to stay 6 ft apart from each other when possible. Pt voices understanding and denies having any questions. Pt verifies that his daughter able to get groceries, supplies, and medications for pt/ as needed and states his will take him home @ discharge. He states is really looking forward to seeing her and his only wish right now is to be able to go home. He expresses great gratitude for the care he has received while @ [facility]. He states the care has been Amazing and states If it wasn't for the wonderful nurses here, I wouldn't be alive. Adin LOUIE RN, CM
== END 2020-05-13 15:30 | disposition home or self-care (01) | DRG 177 ==
LOC: ED 15:33 → ICU 18:43
PROVIDERS: Internal Medicine; Internal Medicine Infectious Disease; Admitting Provider Hospitalist; Emergency Provider Emergency Medicine; PCP Family Medicine; Visit Provider Internal Medicine
DX: U07.1 COVID-19 (principal); J12.89 Other viral pneumonia; J96.21 Acute and chronic respiratory failure with hypoxia; J44.0 Chronic obstructive pulmonary disease with (acute) lower respiratory infection; Z68.41 Body mass index [BMI] 40.0-44.9, adult; J44.1 Chronic obstructive pulmonary disease with (acute) exacerbation; I48.91 Unspecified atrial fibrillation; I27.20 Pulmonary hypertension, unspecified; I35.1 Nonrheumatic aortic (valve) insufficiency; N40.0 Benign prostatic hyperplasia without lower urinary tract symptoms; G47.33 Obstructive sleep apnea (adult) (pediatric); E66.01 Morbid (severe) obesity due to excess calories; Z79.51 Long term (current) use of inhaled steroids; Z99.81 Dependence on supplemental oxygen; Z79.899 Other long term (current) drug therapy; Z87.891 Personal history of nicotine dependence; Z91.19 Patient's noncompliance with other medical treatment and regimen
CPT/HCPCS: 36415; 71045; 71275; 80048; 80053; 82550; 82728; 83605; 83615; 83735; 83880; 84145; 84484; 85025; 85027; 85379; 85384; 85610; 86140; 86900; 86901; 87040; 87635; 93005; 94640; 94760; 96374; 97116; 97162; 97166; 97530; 99251; 99281; 99283; 99285; J7050; Q9967; A4216; G0463; J1940; U0003

== ENCOUNTER → 2020-07-30 08:43 | Outpatient (CLI) | payer MEDICARE, SELFPAY ==
[2020-07-04 10:50] VITALS: BMI 43.0
--- NOTE | 2020-07-30 08:46 | ECHOCS_ITS ---
Reason For Study: AFIB Procedure This was a 2D Doppler, Color Flow transthoracic echocardiogram. The study was technically difficult. Due to body habitus. Contrast injection was performed. Exam performed in department. Left Ventricle Based upon the 2D echocardiographic and contrast enhanced images obtained there appears to be grossly normal left ventricular size, wall motion, and systolic function. The estimated ejection fraction is 55 %. Diastolic function is indeterminate. Right Ventricle Normal RV size. Normal systolic function. Atria Normal left atrium. Normal right atrium. No doppler evidence for ASD. Mitral Valve There is no mitral annular calcification. Normal mitral valve. Trivial mitral valve insufficiency. Tricuspid Valve Normal tricuspid valve. Trivial tricuspid valve insufficiency. Unable to estimate RV systolic pressure/pulmonary artery pressure due to technically difficult study. Aortic Valve Trisinus/trileaflet aortic valve. Mild focal aortic valve thickening. Moderate focal aortic valve calcification. Pulmonic Valve The pulmonic valve is not well visualized. Great Vessels Normal sized aortic root. Pericardium/Pleural No pericardial effusion. Medication 22 gauge I.V. with prn adaptor inserted into right arm. Diluted definity 5.0ml given slow IV push to enhance endocardial definition. MMode/2D Measurements & Calculations LVIDd: 5.6 cm IVSd: 1.0 cm Ao root diam: 3.4 cm LVIDs: 3.7 cm LVPWd: 1.0 cm FS: 33.9 % LAV(MOD-bp): 48.0 ml LA A4 area: 17.3 cm2 LA dimension(2D): 4.2 cm LAV(MOD-bp) Indexed: 20.7 ml/m2 LAV(MOD-sp2): 50.4 ml LAV(MOD-sp4): 46.0 ml RA A4 area: 16.1 cm2 Doppler Measurements & Calculations MV E max chinedu: 95.0 cm/sec Lat Peak E' Chinedu: 5.6 cm/sec Med Peak E' Chinedu: 8.7 cm/sec MV A max chinedu: 27.9 cm/sec E/E' lat: 16.9 E/E' med: 10.9 MV E/A: 3.4 Ao V2 max: 115.7 cm/sec LV V1 max: 93.1 cm/sec PA V2 max: 113.4 cm/sec Ao max P.4 mmHg LV V1 max P.5 mmHg Interpretation Summary The study was technically difficult. Contrast injection was performed. Based upon the 2D echocardiographic and contrast enhanced images obtained there appears to be grossly normal left ventricular size, wall motion, and systolic function. The estimated ejection fraction is 55 %. Trivial mitral valve insufficiency. Trivial tricuspid valve insufficiency. Mild focal aortic valve thickening. Moderate focal aortic valve calcification. Unable to estimate RV systolic pressure/pulmonary artery pressure due to technically difficult study. Diastolic function is indeterminate. Ordering Physician: Ibrahima Ross Referring Physician: Earle Espinoza Performed By: Armida Hilliard, MICKCS, RVT
== END ==
PROVIDERS: PCP Family Medicine; Referring Provider Internal Medicine Cardiovascular Disease; Visit Provider Internal Medicine Cardiovascular Disease
DX: I48.91 Unspecified atrial fibrillation (principal); I48.92 Unspecified atrial flutter; I25.10 Atherosclerotic heart disease of native coronary artery without angina pectoris; I35.1 Nonrheumatic aortic (valve) insufficiency; J44.9 Chronic obstructive pulmonary disease, unspecified
CPT/HCPCS: 93306; Q9957; A4216; C8929

== ENCOUNTER 2020-09-13 13:43 | Emergency (ER) | payer MEDICARE, SELFPAY ==
[2020-07-04 10:50] VITALS: BMI 43.0
[2020-09-13 13:45] VITALS: BP 133/92; PULSE 87; RESP 17; TEMP 36.6; O2SAT 93; BMI 46.5
--- NOTE | 2020-09-13 14:09 | VDLE_ITS ---
Reason For Study: Pain RIGHT GSV is normal. CFV is compressible, spontaneous, phasic, competent and demonstrates normal augmentation. FV is compressible, spontaneous, phasic, competent and demonstrates normal augmentation. POP V is compressible, spontaneous, phasic, competent and demonstrates normal augmentation. T/P Trunk is compressible. PTV is compressible. RT PerV is compressible. Nonvascularized structure noted in the popliteal fossa measuring approximently 3.77 x 3.28 x 5.02 cm. Procedure This is a venous duplex using B-mode, color flow and spectral Doppler. Exam performed portable in ED. A preliminary report was called and/or faxed to ED. Interpretation Summary There is no evidence of right lower extremity deep vein thrombosis. Right great saphenous vein appears patent and compressible segmentally. Right popliteal fossa 3.77 x 3.28 x 5.02 Ely's cyst, non-vascular Ordering Physician: Zuri Gabriel Referring Physician: Earle Espinoza Performed By: Alice Connelly RVT
--- NOTE | 2020-09-13 14:13 | ED.DCSUM_ITS ---
- ER Visit Summary Date of Service: 09/13/20 Chief Complaint: Right leg pain History of Present Illness: The patient is a 70 M presenting with right leg pain. He states this started 1 week ago. He denies injury. He is able to ambulate. No history of DVT. He was previously on anticoagulants when he had Covid. He has since recovered and is no longer on blood thinners. He denies chest pain. He has chronic shortness of breath that is no worse than usual. Denies fever. Denies other complaints. Physical Examination: Vitals are stable. Patient is afebrile. Alert no acute distress. HEENT exam is unremarkable. Neck is supple. Lungs are clear and equal bilaterally. Heart is regular rate and rhythm. Abdomen is soft nontender nondistended. Extremities right lower extremity mild erythema below knee. Active full range of motion of knee. Normal distal pulses. Skin is warm and dry. No focal neurologic deficit. Remainder of exam is unremarkable. Emergency Department Course and Treatment: Venous Doppler right lower extremity shows no evidence of DVT, nonvascular structure noted in the popliteal fossa measuring 3.7 x 3.2 x 5 cm. Patient does have mild erythema right lower extremity. He is given prescription for Keflex. Advised to follow-up with primary care physician. Advised to take Tylenol for pain. Advised return to the ED for worsening complaints. Disposition: Discharge home Impression: Right lower extremity pain, mild cellulitis RLE This note was generated with [employer] dictation software. It may contain incorrect words, spelling, and punctuation that were not noted in review of the chart prior to signing ED Disposition - Plan for ED Patient: Instructions: ED Cellulitis Prescriptions: Cephalexin [Keflex] 500 mg PO Q6 #20 cap Prescription Printed Referrals: Earle Espinoza MD [Primary Care Provider] -
--- NOTE | 2020-09-13 15:26 | ED.DEP ---
ED Disposition - Plan for ED Patient: Instructions: ED Cellulitis Prescriptions: Cephalexin [Keflex] 500 mg PO Q6 #20 cap Prescription Printed Referrals: Earle Espinoza MD [Primary Care Provider] -
[2020-09-13] MEDS: Cephalexin 250 MG Capsule 500 MG PO (15:41)
== END 2020-09-13 15:46 | disposition home or self-care (01) ==
LOC: ED 14:18
PROVIDERS: Emergency Provider Emergency Medicine; PCP Family Medicine
DX: L03.115 Cellulitis of right lower limb (principal); I50.9 Heart failure, unspecified; J44.9 Chronic obstructive pulmonary disease, unspecified; Z86.16 Personal history of COVID-19; Z79.899 Other long term (current) drug therapy
CPT/HCPCS: 93971; 99283

== ENCOUNTER → 2020-09-26 13:49 | Outpatient (CLI) | payer MEDICARE, SELFPAY ==
[2020-09-19 09:02] VITALS: BMI 43.2
[2020-09-26 15:08] LABS: Absolute Lymphocyte Count 1.36 X10^3/uL (0.83-4.51); Absolute Neutrophil Count 6.1 X10^3/uL (2.0-7.7); Basophil# 0.07 X10^3/uL; Basophil% 0.8 % (0-1); Eosinophil# 0.19 X10^3/uL; Eosinophils% 2.2 % (0-5); Hematocrit 43.5 % (40-54); Hemoglobin 12.7 g/dL (13.0-16.5); Lymphocyte # 1.36 X10^3/ul (4.0); Lymphocyte % 16.1 % (19-41); Mean Corp Hgb Conc 29.2 g/dL (32-36); Mean Corpuscular Hgb 27.3 pg (27.0-32.0); Mean Corpuscular Volume 93.3 fL (80-94); Mean Platelet Vol. 10.2 fl (6.2-12.0); Monocyte# 0.74 X10^3/uL; Monocyte% 8.7 % (0-10); NRBC Flagged by Analyzer 0 % (0-5); Neutrophil # 6.09 X10^3/uL (2.7-7.7); Platelet Count 256 K/mm3 (150-450); RBC Distribution Width CV 13.5 % (11.6-14.6); RBC Distribution Width SD 46.6 fl (35.1-43.9); Red Blood Count 4.66 M/mm3 (4.6-6.2); White Blood Count 8.5 K/mm3 (4.4-11.0)
[2020-09-26 15:59] LABS: ALB/GLOB Ratio 0.8 RATIO (0.9-2.4); AST(SGOT) 15 U/L (15-37); Alanine Aminotransfer ALT/SGPT 22 U/L (16-61); Albumin, Serum 3.4 g/dL (3.2-5.0); Alkaline Phosphatase 83 U/L (45-117); Anion Gap 4 (5-15); BUN 19 mg/dL (7-18); BUN/Creat Ratio 30.8 RATIO (10-20); Calcium,Total 8.6 mg/dL (8.5-10.1); Chloride 97 mmol/L (98-107); Cholesterol 179 mg/dL (200); Creatinine, Serum 0.62 mg/dL (0.70-1.30); EST Glomerular Filtration Rate 137 mL/min (>60); Est Glom Filt Rate - Afr Amer 166 mL/min (>60); Globulin 4.1 g/dL (2.2-4.2); Glucose 124 mg/dL (74-106); High Density Lipoprotein 58 mg/dL; Magnesium 2.3 mg/dL (1.6-2.6); Protein, Total 7.5 g/dL (6.4-8.2); Sodium Level 137 mmol/L (136-145); Thyroid Stim Hormone (TSH) 1.32 uIU/mL (0.358-3.74); Triglycerides 68 mg/dL; Very Low Density Lipoprotein 14 mg/dL (5-40)
[2020-09-30 12:53] LABS: Vitamin B12 318 pg/mL (211-911)
[2020-09-30 12:57] LABS: Ferritin 61 ng/mL (26-388); Iron 52 ug/dL (65-175); Iron Binding Capacity,Total 287 ug/dL (250-450); PERCENT IRON SATURATION 18.1 % (15.0-55.0)
== END ==
PROVIDERS: PCP Family Medicine; Referring Provider Family Medicine; Visit Provider Family Medicine
DX: D64.9 Anemia, unspecified (principal); I48.91 Unspecified atrial fibrillation; E66.01 Morbid (severe) obesity due to excess calories
CPT/HCPCS: 36415; 80053; 80061; 82607; 82728; 83540; 83550; 83735; 84443; 85025

== ENCOUNTER → 2020-10-09 16:31 | Outpatient (CLI) | payer MEDICARE, SELFPAY ==
[2020-09-19 09:02] VITALS: BMI 43.2
[2020-10-09 18:45] LABS: Ferritin 48 ng/mL (26-388); Iron 46 ug/dL (65-175); Iron Binding Capacity,Total 301 ug/dL (250-450)
[2020-10-09 19:23] LABS: Vitamin B12 293 pg/mL (211-911)
== END ==
PROVIDERS: PCP Family Medicine; Referring Provider Family Medicine; Visit Provider Family Medicine
DX: D64.9 Anemia, unspecified (principal)
CPT/HCPCS: 36415; 82607; 82728; 82746; 83540; 83550

== ENCOUNTER 2020-10-09 17:17 | Emergency (ER) | payer MEDICARE, SELFPAY ==
[2020-09-19 09:02] VITALS: BMI 43.2
[2020-10-09 17:18] VITALS: BP 140/62; PULSE 69; RESP 15; TEMP 36; O2SAT 93; BMI 46.5
[2020-10-09 17:19] VITALS: BP 140/62; PULSE 69; RESP 15; TEMP 36; O2SAT 93
[2020-10-09 19:19] VITALS: BP 135/97; PULSE 65; RESP 19; TEMP 36.1; O2SAT 95
[2020-10-09 19:26] LABS: Absolute Lymphocyte Count 1.23 X10^3/uL (0.83-4.51); Absolute Neutrophil Count 6.7 X10^3/uL (2.0-7.7); Basophil# 0.06 X10^3/uL; Basophil% 0.7 % (0-1); Eosinophil# 0.19 X10^3/uL; Eosinophils% 2.1 % (0-5); Hematocrit 40.4 % (40-54); Hemoglobin 12.3 g/dL (13.0-16.5); Lymphocyte # 1.23 X10^3/ul (4.0); Lymphocyte % 13.7 % (19-41); Mean Corp Hgb Conc 30.4 g/dL (32-36); Mean Corpuscular Hgb 28.7 pg (27.0-32.0); Mean Corpuscular Volume 94.2 fL (80-94); Mean Platelet Vol. 11.8 fl (6.2-12.0); Monocyte# 0.77 X10^3/uL; Monocyte% 8.6 % (0-10); NRBC Flagged by Analyzer 0 % (0-5); Neutrophil # 6.73 X10^3/uL (2.7-7.7); Neutrophil % 74.7 % (47-70); POSITIVE COUNT YES; Platelet Count 215 K/mm3 (150-450); RBC Distribution Width CV 13.9 % (11.6-14.6); RBC Distribution Width SD 47.7 fl (35.1-43.9); Red Blood Count 4.29 M/mm3 (4.6-6.2)
[2020-10-09 19:56] LABS: Differential Indicated SCAN CRITERIA MET; Platelet Estimate ADEQUATE (ADEQ); Red Cell Morphology N CHROM NORMAL (NORM C&C)
[2020-10-09 19:57] LABS: Stomatocyte 1+
[2020-10-09 20:00] VITALS: BP 138/63; PULSE 65; RESP 15; TEMP 36.1; O2SAT 97
[2020-10-09 20:03] LABS: Anion Gap 0 (5-15); BUN 22 mg/dL (7-18); BUN/Creat Ratio 31.8 RATIO (10-20); Calcium,Total 8.8 mg/dL (8.5-10.1); Chloride 99 mmol/L (98-107); Creatinine, Serum 0.69 mg/dL (0.70-1.30); EST Glomerular Filtration Rate 120 mL/min (>60); Est Glom Filt Rate - Afr Amer 145 mL/min (>60); Estimated Creatinine Clearance 60.65 ml/min; Glucose 109 mg/dL (74-106); Potassium 4.6 mmol/L (3.5-5.1); Sodium Level 139 mmol/L (136-145)
[2020-10-09] MEDS: 0.9% Normal Saline 1,000 ML 999 ML IV (20:23)
[2020-10-09 20:30] LABS: Bacteria 0 SEEN /hpf (None Seen); Mucous, Urine 0 SEEN /hpf (<or=2+); Red Blood Cells-Urine 0 SEEN /hpf (0-5); White Blood Cells 0 SEEN /hpf (0-5)
[2020-10-09 20:32] LABS: Color, Urine Yellow (Yellow); Glucose, Dipstick Normal (Normal); Ketone-Dipstick Negative (Negative); Leukocyte Esterase-Dipstick Negative /ul (Negative); Nitrite-Dipstick Negative (Negative); Occult Blood-Urine Negative /ul (Negative); Protein-Dipstick Negative (Negative); Urine Bilirubin Dipstick Negative (Negative); Urine Clarity Clear (Clear); Urine Urobilinogen Normal (Normal)
--- NOTE | 2020-10-09 20:48 | ED.VISSUMM ---
- ER Visit Summary Date of Service: 10/09/20 Chief Complaint: [Decreased urine output] History of Present Illness: The patient is a 70 M [presents to the emergency department with decreased urine today. Patient states that he normally gets up twice during the night to urinate and he did get up at all last night. Patient states that he is only put out small amounts of urine today. Patient knows that he does not drink enough liquids but was advised to come in and get evaluated. Patient denies any abdominal pain. He denies any fevers. He denies dysuria. Patient has history of COPD.] Physical Examination: [HEENT-PERRLA, EOMI. Cranial nerves II through XII grossly intact. TMs clear. Mucous membranes moist. No adenopathy. Cardiovascular-regular rate and rhythm without murmur or ectopy Lungs-clear to auscultation, chest wall stable without crepitus or subcu emphysema Abdomen-normoactive bowel sounds, soft, nontender, no rebound or rigidity, no peritoneal signs. Extremities-intact ?4, normal range of motion, normal pulses, atraumatic] Test Results: [Bladder scan obtained showed 16 cc of urine in the bladder. CBC with differential showed a white count 9.0, hemoglobin 12, hematocrit 40, placed 215. Chemistries unremarkable. BUN was 22 and creatinine 0.69. Urinalysis was normal.] Emergency Department Course and Treatment: [IV line established on arrival. Patient was given a liter normal same fluid bolus. Patient was able to urinate in the department without difficulty.] Treatment Plan: [Patient advised to push fluids and follow-up with primary care physician within next 3 to 5 days.] Disposition: [Discharged home in stable condition] Impression: [Dehydration] This note was generated with [employer] dictation software. It may contain incorrect words, spelling, and punctuation that were not noted in review of the chart prior to signing ED Disposition - Plan for ED Patient: Referrals: Earle Espinoza MD [Primary Care Provider] -
[2020-10-09 20:50] LABS: Squamous Epithelial Cells - UA 0-5 SEEN /hpf (0-5)
--- NOTE | 2020-10-09 21:25 | ED.DEP ---
ED Disposition - Plan for ED Patient: Instructions: ED Dehydration (Adult) Referrals: Earle Espinoza MD [Primary Care Provider] - 3-5 Days
[2020-10-09 21:35] VITALS: BP 149/66; PULSE 77; RESP 20; TEMP 36.6; O2SAT 90
== END 2020-10-09 21:36 | disposition home or self-care (01) ==
LOC: ED 19:15
PROVIDERS: Emergency Provider Emergency Medicine; PCP Family Medicine
DX: E86.0 Dehydration (principal); J44.9 Chronic obstructive pulmonary disease, unspecified
CPT/HCPCS: 36415; 80048; 81001; 82607; 82728; 82746; 83540; 83550; 85025; 99283; J7030; A4216

== ENCOUNTER → 2020-11-12 | Outpatient (CLI) | payer MEDICARE, SELFPAY ==
[2020-11-01 08:52] VITALS: BMI 45.1
[2020-11-14 17:07] LABS: H. PYLORI STOOL AG Negative (Negative)
== END | disposition home or self-care (01) ==
LOC: LABSPEC 09:57
PROVIDERS: PCP Family Medicine; Visit Provider Nurse Practitioner Family
DX: R19.7 Diarrhea, unspecified (principal)
CPT/HCPCS: 87177; 87209; 87493; 87506

== ENCOUNTER → 2020-11-25 09:32 | Outpatient (CLI) | payer MEDICARE, SELFPAY ==
[2020-11-01 08:52] VITALS: BMI 45.1
[2020-11-25 11:21] LABS: Anion Gap 2 (5-15); BUN 18 mg/dL (7-18); Calcium,Total 8.6 mg/dL (8.5-10.1); Chloride 99 mmol/L (98-107); Creatinine, Serum 0.53 mg/dL (0.70-1.30); EST Glomerular Filtration Rate 163 mL/min (>60); Est Glom Filt Rate - Afr Amer 198 mL/min (>60); Glucose 96 mg/dL (74-106); Potassium 4.2 mmol/L (3.5-5.1); Sodium Level 141 mmol/L (136-145)
== END ==
PROVIDERS: PCP Family Medicine; Referring Provider Physician Assistant Medical; Visit Provider Physician Assistant Medical
DX: I50.32 Chronic diastolic (congestive) heart failure (principal)
CPT/HCPCS: 36415; 80048

== ENCOUNTER 2020-11-27 05:43 | Day surgery (SDC) | payer MEDICARE, SELFPAY ==
[2020-10-24 13:44] VITALS: BMI 46.5
[2020-11-01 08:52] VITALS: BMI 45.1
[2020-11-26 06:57] VITALS: BP 107/53; PULSE 59; RESP 18; TEMP 36.7; O2SAT 100; BMI 45.0
[2020-11-26] MEDS: Lactated Ringers 1,000 ML 100 ML IV (07:15)
--- NOTE | 2020-11-26 07:39 | PCM.HP.BLA ---
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 Is patient in pain?: No Allergies No Known Allergies Allergy (Verified 10/24/20 13:45) Medications Budesonide/Formoterol 160/4.5 [Symbicort 160/4.5 Mcg Inhaler (SP)] 2 puff INHALATION BID 02/22/15 [History Confirmed 10/24/20] furosemide 20 mg tablet 20 mg PO QDAY 07/22/17 [History Confirmed 10/24/20] Finasteride [Proscar] 5 mg PO DAILY 05/05/20 [History Confirmed 10/24/20] albuterol sulfate 5 mg/mL(0.5 %) solution for nebulization 5 mg INHALATION Q6H PRN 07/04/20 [History Confirmed 10/24/20] ascorbic acid (vitamin C) 500 mg tablet 1,000 mg PO DAILY tab 07/04/20 [History Confirmed 10/24/20] calcium carb-Ca gluc 500 mg calcium-magnesium ox-Mg gluc 250 mg tablet 2 tab PO DAILY tab 07/04/20 [History Confirmed 10/24/20] cholecalciferol (vitamin D3) 25 mcg (1,000 unit) capsule 100 mcg PO DAILY cap 07/04/20 [History Confirmed 10/24/20] garlic 600 mg PO DAILY tab 07/04/20 [History Confirmed 10/24/20] tamsulosin 0.4 mg capsule 0.4 mg PO DAILY cap 07/04/20 [History Confirmed 10/24/20] zinc 50 mg tablet 100 mg PO DAILY tab 07/04/20 [History Confirmed 10/09/20] albuterol sulfate 90 mcg/actuation aerosol inhaler 2 puff INHALATION Q6H PRN #18 g 09/19/20 [Rx Confirmed 10/24/20] Ferrous Sulfate 325 mg PO DAILY 10/09/20 [History Confirmed 10/24/20] Metoprolol Tartrate 25 mg PO BID 10/09/20 [History Confirmed 10/24/20] tiotropium bromide 2.5 mcg/actuation mist for inhalation 2 puff INHALATION DAILY #4 gm 10/16/20 [Rx Confirmed 10/24/20] aspirin 81 mg tablet,delayed release 81 mg PO DAILY 10/24/20 [History Confirmed 10/24/20] FOR[facility] Medical History (Updated 10/24/20 @ 13:[address] Navi Patino MD) Positive occult stool blood test (Acute) Nonrheumatic aortic (valve) insufficiency (Acute) Stage 4 very severe COPD by GOLD classification (Chronic) Secondary pulmonary hypertension (Chronic) Diastolic CHF, chronic (Chronic) Secondary pulmonary hypertension (Chronic) Obesity (BMI 30-39.9) (Chronic) Stage 4 very severe COPD by GOLD classification (Chronic) COPD (chronic obstructive pulmonary disease) (Chronic) Sleep apnea (Chronic) Chronic respiratory failure (Chronic) Surgical History (Updated 10/24/20 @ 13:43 by Cori Villafuerte) Hx of colonoscopy (Acute) Hx of cataract surgery (Acute) History of surgery of head (Acute) Total knee replacement status (Resolved) Family History Mother Cancer stomach Father Heart disease Brother Cancer Social History (Updated 10/24/20 @ 13:[address] Navi Patino MD) Smoking Status: Former smoker pack-years: 60 Tobacco: How many years used: 30 alcohol intake: never substance use type: does not use caffeine: Yes Type: coffee Number of servings: 4 what type of physical activity do you participate in: none frequency: does not exercise HPI HPI HPI: FARRAH ANDREWS, is a 70 M who presents to the office today for surgical consultation regarding Hemoccult-positive stool. The patient is referred by his primary care physician Dr Earle Espinoza and a written copy my surgical consult recommendations were returned to him. 70-year-old gentleman. He has had a Hemoccult positive stool card. Dr. Chidi Garcia performed a previous colonoscopy for him October 28, 2017 and removed a tubular adenoma from the cecum and a tubular adenoma from the ascending colon and a tubular adenoma from the transverse colon. As of October 09, 2020 BUN was 22 creatinine 0.69. CO2 was 40. His TIBC was 301 and iron 46 and ferritin 48. The patient states that he did have COVID-13 May 2020. He states that prior to that he was on 3 L a minute of nasal prong oxygen and now is on 4 L a minute of nasal proximal oxygen. October 09, 2020 he was seen in the emergency room because of lower extremity cellulitis. He was placed on treatment and he states he is improved. He does have COPD. Has a history of smoking up to 2 packs a day prior to quitting. He himself feels that he has not recovered from his COVID-19 and Covid pneumonia. He does feel that he has more difficulty in getting deep breaths and exchanging air. HPI HPI HPI: FARRAH ANDREWS, is a 70 M who presents to the office today for Exam Const Nutritional Appearance: obese morbidly obese Other: Patient is awake and alert. He has mobile oxygen supply with him. He wears a miniature face shield. There is no mask. BMI is 46.5 HENMT Head: normal to inspection Chest Other: Increased anterior posterior diameter Resp Other: Very poor respiratory excursion. Breath sounds difficult to hear. Cardio Rate: regular rate GI Other: Notably overweight. I did not attempt to lie the patient supine due to his respiratory status Neuro Cognition: normal cognition Extrem Other: Bilateral lower extremity nonpitting edema noted Psych Affect: normal affect Assessment & Plan Problems 1. Positive occult stool blood test R19.5 Plan Positive occult stool test. Recent hemoglobin 12.3 with a hematocrit of 40.4. I have offered the patient a esophagogastroduodenoscopy with possible biopsy and colonoscopy with possible biopsy or polypectomy as indicated. Patient is aware of the technique, benefit, risk, alternatives. Features present however of concern include his COPD with oxygen requirement and history of deterioration since his COVID-19 infection. Body habitus increases the risk. I would want to perform this with monitored anesthesia care but believe that anesthesia consultation will be required prior to proceeding. At 4 L/min oxygen anesthesia services may consider this patient to high risk. I appreciate the opportunity of assisting with his surgical care. After anesthesia review will provide further surgical input. Copy: Dr Earle Patino M.D., F.A.C.S. I have re-examined the patient. There are no clinical changes since date of exam.
--- NOTE | 2020-11-27 05:58 | HP.PCM_ITS ---
History and Physical Date of Admission: 11/27/20 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 Occult Blood Test Physiotherapy Aide Required: No Is patient in pain?: No Allergies No Known Allergies Allergy (Verified 10/24/20 13:45) Medications Budesonide/Formoterol 160/4.5 [Symbicort 160/4.5 Mcg Inhaler (SP)] 2 puff INHALATION BID 02/22/15 [History Confirmed 10/24/20] furosemide 20 mg tablet 20 mg PO QDAY 07/22/17 [History Confirmed 10/24/20] Finasteride [Proscar] 5 mg PO DAILY 05/05/20 [History Confirmed 10/24/20] albuterol sulfate 5 mg/mL(0.5 %) solution for nebulization 5 mg INHALATION Q6H PRN 07/04/20 [History Confirmed 10/24/20] ascorbic acid (vitamin C) 500 mg tablet 1,000 mg PO DAILY? tab 07/04/20 [History Confirmed 10/24/20] calcium carb-Ca gluc 500 mg calcium-magnesium ox-Mg gluc 250 mg tablet 2 tab PO DAILY? tab 07/04/20 [History Confirmed 10/24/20] cholecalciferol (vitamin D3) 25 mcg (1,000 unit) capsule 100 mcg PO DAILY? cap 07/04/20 [History Confirmed 10/24/20] garlic 600 mg PO DAILY? tab 07/04/20 [History Confirmed 10/24/20] tamsulosin 0.4 mg capsule 0.4 mg PO DAILY? cap 07/04/20 [History Confirmed 10/24/20] zinc 50 mg tablet 100 mg PO DAILY? tab 07/04/20 [History Confirmed 10/09/20] albuterol sulfate 90 mcg/actuation aerosol inhaler 2 puff INHALATION Q6H PRN #18 g 09/19/20 [Rx Confirmed 10/24/20] Ferrous Sulfate 325 mg PO DAILY 10/09/20 [History Confirmed 10/24/20] Metoprolol Tartrate 25 mg PO BID 10/09/20 [History Confirmed 10/24/20] tiotropium bromide 2.5 mcg/actuation mist for inhalation 2 puff INHALATION DAILY #4 gm 10/16/20 [Rx Confirmed 10/24/20] aspirin 81 mg tablet,delayed release 81 mg PO DAILY 10/24/20 [History Confirmed 10/24/20] PFSH Medical History? (Updated 10/24/20 @ 13:[address] Navi Patino MD) Positive occult stool blood test (Acute) Nonrheumatic aortic (valve) insufficiency (Acute) Stage 4 very severe COPD by GOLD classification (Chronic) Secondary pulmonary hypertension (Chronic) Diastolic CHF, chronic (Chronic) Secondary pulmonary hypertension (Chronic) Obesity (BMI 30-39.9) (Chronic) Stage 4 very severe COPD by GOLD classification (Chronic) COPD (chronic obstructive pulmonary disease) (Chronic) Sleep apnea (Chronic) Chronic respiratory failure (Chronic) Surgical History? (Updated 10/24/20 @ 13:43 by Cori Villafuerte) Hx of colonoscopy (Acute) Hx of cataract surgery (Acute) History of surgery of head (Acute) Total knee replacement status (Resolved) Family History? Mother Cancer ?? ? stomach Father Heart disease Brother Cancer Social History? (Updated 10/24/20 @ 13:[address] Navi Patino MD) Smoking Status:? Former smoker pack-years: 60 Tobacco: How many years used:? 30 alcohol intake:? never substance use type:? does not use caffeine:? Yes Type: coffee Number of servings: 4 what type of physical activity do you participate in:? none frequency:? does not exercise HPI HPI HPI: FARRAH ANDREWS, is a 70 M who presents to the office today for surgical consultation regarding Hemoccult-positive stool.? The patient is referred by his primary care physician Dr Earle Espinoza and a written copy my surgical consult recommendations were returned to him. 70-year-old gentleman.? He has had a Hemoccult positive stool card. Dr. Chidi Garcia performed a previous colonoscopy for him October 28, 2017 and removed a tubular adenoma from the cecum and a tubular adenoma from the ascending colon and a tubular adenoma from the transverse colon. As of October 09, 2020 BUN was 22 creatinine 0.69.? CO2 was 40.? His TIBC was 301 and iron 46 and ferritin 48. The patient states that he did have COVID-13 May 2020.? He states that prior to that he was on 3 L a minute of nasal prong oxygen and now is on 4 L a minute of nasal proximal oxygen.? October 09, 2020 he was seen in the emergency room because of lower extremity cellulitis.? He was placed on treatment and he states he is improved. He does have COPD.? Has a history of smoking up to 2 packs a day prior to quitting. He himself feels that he has not recovered from his COVID-19 and Covid p neumonia.? He does feel that he has more difficulty in getting deep breaths and exchanging air. HPI HPI HPI: FARRAH ANDREWS, is a 70 M who presents to the office today for Exam Const Nutritional Appearance: obese? morbidly obese Other: Patient is awake and alert.? He has mobile oxygen supply with him.? He wears a miniature face shield.? There is no mask.? BMI is 46.5 HENMT Head: normal to inspection Chest Other: Increased anterior posterior diameter Resp Other: Very poor respiratory excursion.? Breath sounds difficult to hear. Cardio Rate: regular rate GI Other: Notably overweight.? I did not attempt to lie the patient supine due to his respiratory status Neuro Cognition: normal cognition Extrem Other: Bilateral lower extremity nonpitting edema noted Psych Affect: normal affect Assessment & Plan Problems 1. Positive occult stool blood test? R19.5 Plan Positive occult stool test.? Recent hemoglobin 12.3 with a hematocrit of 40.4. I have offered the patient a esophagogastroduodenoscopy with possible biopsy and colonoscopy with possible biopsy or polypectomy as indicated.? Patient is aware of the technique, benefit, risk, alternatives. Features present however of concern include his COPD with oxygen requirement and history of deterioration since his COVID-19 infection. Body habitus increases the risk. I would want to perform this with monitored anesthesia care but believe that anesthesia consultation will be required prior to proceeding.? At 4 L/min oxygen anesthesia services may consider this patient to high risk. I appreciate the opportunity of assisting with his surgical care.? After anesthesia review will provide further surgical input. Copy: Dr Earle Patino M.D., F.A.C.S. I have re-examined the patient. There are no clinical changes since date of exam. It became apparent yesterday when the patient presented for his esophagogastroduodenoscopy and colonoscopy that he had not achieved an adequate bowel prep. Despite attempts to treat him with saline enemas that failed so he was discharged on a repeat oral bowel prep and he returns today for repeat attempt at a esophagogastroduodenoscopy with biopsy and colonoscopy with biopsy or polypectomy as indicated. He feels that he is better cleaned out after another day of clear liquids and a repeat prep Navi Patino M.D., F.A.C.S.
[2020-11-27 06:40] VITALS: BP 110/56; PULSE 62; RESP 16; TEMP 36.7; O2SAT 98; BMI 96.2
[2020-11-27] MEDS: Lactated Ringers 1,000 ML 100 ML IV (06:46)
[2020-11-27 06:53] VITALS: BMI 43.6
--- NOTE | 2020-11-27 07:00 | IMM_PTH ---
PATIENT: FARRAH ANDREWS Jr. LOC: EN U#:[id number] AGE/SX: 70/M ROOM: RE11/27/[address]: Dr. Navi Patino MD : 1950 BED: DIS: 11/27/2020 SPEC #: [id number] RECD: 11/27/20 12:36 STATUS: HANNAH REKareen #: [id number] JENNIFER: 11/27/20 07:[address]: Navi Patino DEPT: IMMUNOHISTOCHEMISTRY RECD BY: Marissa Cabezas ENTERED: 11/27/20 12:38 SP TYPE: IMMUNO OTHR DR: Dr. Earle Espinoza MD Tissues: A - Stomach, NOS Procedures: H Pylori (initial) PHYSICIAN & INSTITUTION [place] [id number] SPECIMEN INFORMATION: Tissue Source: A ? Antrum biopsy Clinical Info: Positive occult stool blood Specimen Number: [id number] CPT code: 07957 METHODOLOGY: Deparaffinized sections of prefer/formalin-fixed tissue or PAP/DQ stained slides are incubated with monoclonal/polyclonal antibodies/oligonucleotide probes. Localization is made via biotin free immunoperoxidase method. Appropriate controls are performed and reacted as expected. Results on target cell population are indicated in the following table: RESULTS: ANTIBODY / CLONE RESULT Block A H Pylori (polyclonal) positive These tests were developed and their performance characteristics determined by [facility]. They may not have been cleared or approved by the U.S. Food and Drug Administration. The FDA has determined that such clearance or approval is not necessary. INTERPRETATION: A. Antrum biopsy: Positive for Helicobacter pylori organisms. SJ:keenan 11/28/2020
--- NOTE | 2020-11-27 07:00 | EGD_PTH ---
PATIENT: FARRAH ANDREWS Jr. LOC: EN U#:[id number] AGE/SX: 70/M ROOM: RE11/27/[address]: Dr. Navi Patino MD : 1950 BED: DIS: 11/27/2020 SPEC #: [id number] RECD: 11/27/20 11:37 STATUS: HANNAH TAVAREZ #: [id number] JENNIFER: 11/27/20 07:[address]: Navi Patino DEPT: SURGICAL PATHOLOGY RECD BY: Jack Gomez ENTERED: 11/27/20 13:23 SP TYPE: EGD BIOPSY OT DR: Dr. Earle Espinoza MD Tissues: A - Gastric mucous membrane B - Esophagus, NOS C - Ascending colon Procedures: Special Stain Group II Surgery Specimen Level IV Alcian Blue/PAS (control) HEADER OPERATION: Colonoscopy, EGD ([facility] [place]) PRE-OP DIAGNOSIS: Positive occult stool blood TISSUE SUBMITTED: A ? Biopsy of antrum for H. pylori and path, B ? Biopsy of distal esophagus, C ? Proximal ascending colon polyp by hot snare MICROSCOPIC DIAGNOSIS A. Antrum, biopsy: Moderate chronic gastritis. See microscopic description and comment. B. 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 Mild chronic inflammation. Negative for dysplasia. See comment. C. Proximal ascending colon polyp, biopsy: A fragment of inflammatory polyp. Fragments of fecal material. See comment. SJ:keenan 11/28/2020 COMMENT A. The results of immunohistochemistry for Helicobacter pylori will be reported separately ([id number]). B. Alcian blue/PAS stain with matched control is used in the evaluation of the specimen. C. The specimen predominantly consists of fecal material. MICROSCOPIC DESCRIPTION Slides are reviewed. A. The specimen shows fragments of gastric mucosa with chronic inflammatory cell infiltrates in the lamina propria consisting of lymphocytes and plasma cells, consistent with moderate chronic gastritis. GROSS DESCRIPTION A - Received in fixative is one container labeled with the patient's name and designated biopsy of antrum. The specimen consists of one irregular fragment of light cardona soft tissue that measures 0.4 x 0.3 x 0.1 cm. The specimen is totally submitted in one cassette. B - Received in fixative is one container labeled with the patient's name and designated biopsy of distal esophagus. The specimen consists of two irregular fragments of light cardona soft tissue that in aggregate measure 0.4 x 0.3 x 0.1 cm. The specimen is totally submitted in one cassette. C - Received in fixative is one container labeled with the patient's name and designated proximal ascending colon polyp hot snare. The specimen consists of multiple irregular fragments of pink, congested soft tissue mixed with fecal material that in aggregate measure 2.5 x 0.5 x 0.2 cm. The specimen is totally submitted in one cassette. / YUE:keenan 11/27/20 TC:3 CPT: 01588 x3, 18372
--- NOTE | 2020-11-27 07:30 | OP.EGD_ITS ---
Patient Name: Ashish Powers Procedure Date: 11/27/2020 6:56 AM Date of : 1950 Age: 70 Procedure: Upper GI endoscopy Indications: Hemocult positive stool Providers: Navi Patino MD Referring MD: Earle Espinoza Medicines: See the Anesthesia note for documentation of the administered medications Complications: No immediate complications. Procedure: Pre-Anesthesia Assessment: - Prior to the procedure, a History and Physical was performed, and patient medications and allergies were reviewed. The patient's tolerance of previous anesthesia was also reviewed. The risks and benefits of the procedure and the sedation options and risks were discussed with the patient. All questions were answered, and informed consent was obtained. Prior Anticoagulants: The patient has taken anticoagulant medication, last dose was 2 days prior to procedure. ASA Grade Assessment: III - A patient with severe systemic disease. After reviewing the risks and benefits, the patient was deemed in satisfactory condition to undergo the procedure. After obtaining informed consent, the endoscope was passed under direct vision. Throughout the procedure, the patient's blood pressure, pulse, and oxygen saturations were monitored continuously. The Endoscope was introduced through the mouth, and advanced to the second part of duodenum. The upper GI endoscopy was accomplished without difficulty. The patient tolerated the procedure well. Scope In: 7:05:15 AM Scope Out: 7:09:01 AM Total Procedure Duration Time 0 hours 3 minutes 46 seconds Findings: Esophagitis with no bleeding was found 40 cm from the incisors. Biopsies were taken with a cold forceps for histology. A medium-sized hiatal hernia was present. Diffuse mildly erythematous mucosa without bleeding was found in the gastric antrum. Biopsies were taken with a cold forceps for histology. Bilious fluid was found in the stomach. The examined duodenum was normal. Impression: - Reflux esophagitis. Biopsied. - Medium-sized hiatal hernia. - Erythematous mucosa in the antrum. Biopsied. - Bilious gastric fluid. - Normal examined duodenum. Recommendation: - Discharge patient to home. - Resume previous diet. - Continue present medications. - Telephone my office for pathology results in 1 week. Procedure Code(s): --- Professional --- 21099, Esophagogastroduodenoscopy, flexible, transoral; with biopsy, single or multiple Diagnosis Code(s): --- Professional --- K21.0, Gastro-esophageal reflux disease with esophagitis K44.9, Diaphragmatic hernia without obstruction or gangrene K31.89, Other diseases of stomach and duodenum CPT copyright 2017 [employer]. All rights reserved. The codes documented in this report are preliminary and upon forestry worker review may be revised to meet current compliance requirements. Navi Patino MD 11/27/2020 7:30:16 AM This report has been signed electronically. Number of Addenda: 0 Note Initiated On: 11/27/2020 6:56 AM
--- NOTE | 2020-11-27 07:30 | OP.CCLET_ITS ---
11/27/2020 Earle Espinoza [address] [place] [address] Re : Upper GI endoscopy procedure for Ashish Powers Dear Dr. Espinoza This procedure was performed on Friday, November 27, 2020. My impressions and recommendations are as follows: Impressions : - Reflux esophagitis. Biopsied. - Medium-sized hiatal hernia. - Erythematous mucosa in the antrum. Biopsied. - Bilious gastric fluid. - Normal examined duodenum. Recommendations : - Discharge patient to home. - Resume previous diet. - Continue present medications. - Telephone my office for pathology results in 1 week. My findings are described in the full procedure note, which is enclosed. If I can be of further assistance, please feel free to contact me at Doctor phone number(s): Work: . Sincerely, Navi Patino MD 11/27/2020 7:30:16 AM This report has been signed electronically.
[2020-11-27 07:31] VITALS: BP 110/56; BP 95/55; RESP 16; TEMP 21.6; O2SAT 95
--- NOTE | 2020-11-27 07:34 | OP.CCLET_ITS ---
11/27/2020 Earle Espinoza [address] [place] [address] Re : Colonoscopy procedure for Ashish Powers Dear Dr. Espinoza This procedure was performed on Friday, November 27, 2020. My impressions and recommendations are as follows: Impressions : - Preparation of the colon was poor. - Non-thrombosed external hemorrhoids, non-thrombosed internal hemorrhoids and internal hemorrhoids that prolapse with straining, but spontaneously regress to the resting position (Grade II) found on digital rectal exam. - One 6 mm polyp in the proximal ascending colon, removed with a hot snare. Resected and retrieved. - Melanosis in the colon. - Diverticulosis in the sigmoid colon. Recommendations : - Discharge patient to home. - Resume previous diet. - Continue present medications. - Repeat colonoscopy in 5 years for surveillance based on pathology results. - Telephone my office for pathology results in 1 week. Despite extra bowel prep still abundant stool. No large masses. Hemocult likely secondary to hemorrhoids or mild gastritis My findings are described in the full procedure note, which is enclosed. If I can be of further assistance, please feel free to contact me at Doctor phone number(s): Work: . Sincerely, Navi Patino MD 11/27/2020 7:33:50 AM This report has been signed electronically.
--- NOTE | 2020-11-27 07:34 | OP.COLON_ITS ---
Patient Name: Ashish Powers Procedure Date: 11/27/2020 7:12 AM Date of : 1950 Age: 70 Procedure: Colonoscopy Indications: Hemocult positive stool Providers: Navi Patino MD Referring MD: Ealre Espinoza Medicines: See the Anesthesia note for documentation of the administered medications Patient Profile: Last Colonoscopy: 2017. Complications: No immediate complications. Procedure: Pre-Anesthesia Assessment: - Prior to the procedure, a History and Physical was performed, and patient medications and allergies were reviewed. The patient's tolerance of previous anesthesia was also reviewed. The risks and benefits of the procedure and the sedation options and risks were discussed with the patient. All questions were answered, and informed consent was obtained. Prior Anticoagulants: The patient has taken anticoagulant medication, last dose was 2 days prior to procedure. ASA Grade Assessment: III - A patient with severe systemic disease. After reviewing the risks and benefits, the patient was deemed in satisfactory condition to undergo the procedure. After I obtained informed consent, the scope was passed under direct vision. Throughout the procedure, the patient's blood pressure, pulse, and oxygen saturations were monitored continuously. The adult colonoscope was introduced through the anus and advanced to the cecum, identified by appendiceal orifice and ileocecal valve. The colonoscopy was performed without difficulty. The patient tolerated the procedure well. The quality of the bowel preparation was poor. The ileocecal valve and the appendiceal orifice were photographed. Scope In: 7:13:31 AM Scope Withdrawal Time 0 hours 8 minutes 55 seconds Scope Out: 7:25:12 AM Total Procedure Duration Time 0 hours 11 minutes 41 seconds Findings: The digital rectal exam findings include non-thrombosed external hemorrhoids, non-thrombosed internal hemorrhoids and internal hemorrhoids that prolapse with straining, but spontaneously regress to the resting position (Grade II). A 6 mm polyp was found in the proximal ascending colon. The polyp was sessile. The polyp was removed with a hot snare. Resection and retrieval were complete. A diffuse area of severe melanosis was found in the entire colon. Multiple diverticula were found in the sigmoid colon. Impression: - Preparation of the colon was poor. - Non-thrombosed external hemorrhoids, non-thrombosed internal hemorrhoids and internal hemorrhoids that prolapse with straining, but spontaneously regress to the resting position (Grade II) found on digital rectal exam. - One 6 mm polyp in the proximal ascending colon, removed with a hot snare. Resected and retrieved. - Melanosis in the colon. - Diverticulosis in the sigmoid colon. Recommendation: - Discharge patient to home. - Resume previous diet. - Continue present medications. - Repeat colonoscopy in 5 years for surveillance based on pathology results. - Telephone my office for pathology results in 1 week. Despite extra bowel prep still abundant stool. No large masses. Hemocult likely secondary to hemorrhoids or mild gastritis Procedure Code(s): --- Professional --- 92320, Colonoscopy, flexible; with removal of tumor(s), polyp(s), or other lesion(s) by snare technique Diagnosis Code(s): --- Professional --- K64.1, Second degree hemorrhoids K64.4, Residual hemorrhoidal skin tags D12.2, Benign neoplasm of ascending colon K63.89, Other specified diseases of intestine K57.30, Diverticulosis of large intestine without perforation or abscess without bleeding CPT copyright 2017 [employer]. All rights reserved. The codes documented in this report are preliminary and upon remote medical coder review may be revised to meet current compliance requirements. Navi Patino MD 11/27/2020 7:33:50 AM This report has been signed electronically. Number of Addenda: 0 Note Initiated On: 11/27/2020 7:12 AM
[2020-11-27 07:42] VITALS: BP 110/56; BP 99/70; PULSE 68; RESP 16; O2SAT 98
[2020-11-27 07:46] VITALS: BP 110/56; BP 121/49; BP 122/49; PULSE 71; RESP 16; TEMP 36.5; O2SAT 97
[2020-11-27 08:08] VITALS: BP 110/56
== END 2020-11-27 08:16 ==
LOC: EN 05:44 → AC 05:44
PROVIDERS: PCP Family Medicine; Referring Provider Family Medicine; Visit Provider Surgery
PROC: 0DJD8ZZ Inspection of Lower Intestinal Tract, Via Natural or Artificial Opening Endoscopic (ICD-10-PCS; CPT 45378; principal; 2020-11-27 06:55)
DX: K21.00 Gastro-esophageal reflux disease with esophagitis, without bleeding (principal); K29.50 Unspecified chronic gastritis without bleeding; B96.81 Helicobacter pylori [H. pylori] as the cause of diseases classified elsewhere; D12.2 Benign neoplasm of ascending colon; K44.9 Diaphragmatic hernia without obstruction or gangrene; K64.1 Second degree hemorrhoids; K64.4 Residual hemorrhoidal skin tags; K57.30 Diverticulosis of large intestine without perforation or abscess without bleeding; K63.89 Other specified diseases of intestine; R19.5 Other fecal abnormalities; I50.32 Chronic diastolic (congestive) heart failure; I48.91 Unspecified atrial fibrillation; I27.20 Pulmonary hypertension, unspecified; J43.9 Emphysema, unspecified; J96.10 Chronic respiratory failure, unspecified whether with hypoxia or hypercapnia; D64.9 Anemia, unspecified; E66.01 Morbid (severe) obesity due to excess calories; Z20.822 Contact with and (suspected) exposure to COVID-19; Z79.01 Long term (current) use of anticoagulants; Z79.82 Long term (current) use of aspirin; Z79.51 Long term (current) use of inhaled steroids; Z79.899 Other long term (current) drug therapy; Z99.81 Dependence on supplemental oxygen; Z86.16 Personal history of COVID-19; Z87.19 Personal history of other diseases of the digestive system; Z87.891 Personal history of nicotine dependence
CPT/HCPCS: 43239; 45385; 87426; 88305; 88313; 88342; C9803; J7120; J2405

== ENCOUNTER → 2021-02-10 08:04 | Outpatient (CLI) | payer MEDICARE, SELFPAY ==
[2020-12-16 09:07] VITALS: BMI 43.7
--- NOTE | 2021-02-10 08:12 | CT_ITS ---
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 Low dose technique was utilized (average mAS-38 and kVp 120). 1.25 mm axial source images with a slice interval of 1.25-mm were reconstructed in lung windows. 2.5 mm axial source images with a slice interval of 2.5-mm were reconstructed in lung windows. 5.0 mm axial source images with a slice interval of 5.0-mm were reconstructed in soft tissue windows. Nodule measured using lung windows on PACS and/or independent workstation with automated measurement of minimum and maximum diameter. Nodule measurement reported as average diameter rounded to the nearest whole number. Growth is defined as an increase ins size of greater than 1.5 mm. COMPARISON: Comparison is made with prior study dated 01/31/2020. NODULES: No suspicious nodules are seen. Emphysema: Stable scarring in the lateral aspect of the left lower lobe with evidence of prior bronchiectasis. Mild degree of scarring in the anterior aspect of the right upper lobe. The previously seen infiltrate in the posterior aspect of the right middle lobe is not seen at this time. There is evidence of diffuse emphysematous changes. Endobronchial lesion: None Aorta: Calcified plaques at the level of the aortic arch. Coronary arteries: Coronary artery calcification. Heart: Unremarkable Pulmonary artery: Unremarkable Mediastinal nodes: Unremarkable Other chest and abdominal findings: CT/Low Dose CT Lung Screening IMPRESSION: Lung-RADS category 2 - Continue annual screening with LDCT in 12 months. IMPORTANT NOTES FOR USE: ACR Lung-RADS Version 1.1 Assessment Categories Release Date: 2018 Category: Coded 0-4 bases on nodule(s) with highest degree of suspicion. Negative screen is defined as categories 1 and 2; a positive screen is defined as categories 3 and 4. Category 3 and 4A nodules that are unchanged on interval CT should be coded as category 2, and individuals returned to screening in 12 months. Category 4X: Category 3 or 4 nodules with additional imaging findings that increase the suspicion of lung cancer, such as spiculation, GGN that doubles in size in 1 year, enlarged lymph notes, etc. Category Modifiers: S (significant finding unrelated to lung cancer) Electronically Signed: Ramakrishna Levi MD at 13:19 EDT , Service support ,
== END ==
PROVIDERS: PCP Family Medicine; Referring Provider Nurse Practitioner Acute Care; Visit Provider Nurse Practitioner Acute Care
DX: Z12.2 Encounter for screening for malignant neoplasm of respiratory organs (principal); F17.210 Nicotine dependence, cigarettes, uncomplicated
CPT/HCPCS: 71271

== ENCOUNTER 2021-02-14 16:53 | Inpatient (IN) | payer MEDICARE, SELFPAY ==
[2020-12-16 09:07] VITALS: BMI 43.7
[2021-02-14] VITALS (14 sets, daily range): BP systolic 130–176; BP diastolic 71–101; PULSE 84–101; RESP 12–30; TEMP -17.7–36.6; O2SAT 63–100; BMI 47.0; BMI 45.2
--- NOTE | 2021-02-14 17:01 | EKG12_ITS ---
Test Reason : SOB Blood Pressure : / mmHG Vent. Rate : 085 BPM Atrial Rate : 085 BPM P-R Int : 188 ms QRS Dur : 100 ms QT Int : 364 ms P-R-T Axes : 072 040 068 degrees QTc Int : 433 ms Normal sinus rhythm Nonspecific ST abnormality Abnormal ECG Confirmed by TORI MENDEZ, GAIL ([id number]), newspaper editor managing [address] ([id number]) on 02/18/2021 10:18:40 AM Referred By: GABY Confirmed By:GAIL VALLE MD
--- NOTE | 2021-02-14 17:03 | EDS_ITS ---
HPI History of Present Illness Chief Complaint: Shortness of Breath Informant: patient and spouse/S.O. Narrative Narrative: 71-year-old male presents with several day history of progressive dyspnea. Patient has a history of COPD and chronically wears 4 L of home o xygen. In triage she was noted to be 62% on 4 L. Patient notes a cough with small sputum production. He sees Dr. Shah for pulmonology. Patient denies any fever. He wears BiPAP at night but does not know the settings. [facility] Medical History Anemia Asthma Atrial fibrillation Chronic respiratory failure Congestive heart failure (CHF) COPD (chronic obstructive pulmonary disease) COPD (chronic obstructive pulmonary disease) Diastolic CHF, chronic Edema Emphysema, unspecified Former smoker Injury of head and neck Loose, teeth Nonrheumatic aortic (valve) insufficiency Obesity (BMI 30-39.9) On home oxygen therapy Positive occult stool blood test Restless legs Secondary pulmonary hypertension Secondary pulmonary hypertension Sleep apnea Stage 4 very severe COPD by GOLD classification Stage 4 very severe COPD by GOLD classification Wears glasses Home Medications budesonide-formoterol 2 puff INHALATION BID 02/22/15 [History Last Taken 11/26/20 05:15] finasteride 5 mg PO DAILY 05/05/20 [History Last Taken Unknown] albuterol sulfate 5 mg/mL(0.5 %) solution for nebulization 5 mg INHALATION Q6H PRN 07/04/20 [History Last Taken 11/26/20 05:15] ascorbic acid (vitamin C) 500 mg tablet 1,000 mg PO DAILY tab 07/04/20 [History Last Taken Unknown] calcium carb-Ca gluc 500 mg calcium-magnesium ox-Mg gluc 250 mg tablet 1 tab PO DAILY tab 07/04/20 [History Last Taken Unknown] cholecalciferol (vitamin D3) 25 mcg (1,000 unit) capsule 100 mcg PO DAILY cap 07/04/20 [History Last Taken Unknown] garlic 600 mg PO DAILY tab 07/04/20 [History Last Taken Unknown] tamsulosin 0.4 mg capsule 0.4 mg PO DAILY cap 07/04/20 [History Last Taken Unknown] zinc 50 mg tablet 100 mg PO DAILY tab 07/04/20 [History Last Taken Unknown] albuterol sulfate 90 mcg/actuation aerosol inhaler 2 puff INHALATION Q6H PRN #18 g 09/19/20 [Rx Last Taken Unknown] ferrous sulfate 325 mg PO DAILY 10/09/20 [History Last Taken Unknown] metoprolol tartrate 25 mg PO BID 10/09/20 [History Last Taken 11/26/20 05:15] tiotropium bromide 2.5 mcg/actuation mist for inhalation 2 puff INHALATION DAILY #4 gm 10/16/20 [Rx Last Taken Unknown] aspirin 81 mg tablet,delayed release 81 mg PO DAILY 10/24/20 [History Last Taken Unknown] furosemide 20 mg tablet 40 mg PO QDAY #1 tablet 11/01/20 [Rx Last Taken Unknown] lansoprazole 30 mg capsule,delayed release 30 mg PO BID #28 cap 12/02/20 [Rx Last Taken Unknown] metronidazole 250 mg tablet 250 mg PO .qid #56 tab 12/02/20 [Rx Last Taken Unknown] tetracycline 500 mg capsule 500 mg PO .qid #56 cap 12/02/20 [Rx Last Taken Unknown] nystatin 100,000 unit/mL oral suspension 5 ml MUCOUS MEMBRANE TID #250 ml 12/16/20 [Rx Last Taken Unknown] Allergy/AdvReac Type Severity Reaction Status Date / Time No Known Allergies Allergy Verified 02/14/21 16:54 Family History Mother Cancer stomach Father Heart disease Brother Cancer Surgical History History of surgery of head Hx of cataract surgery Hx of colonoscopy Social History Smoking Status: Former smoker pack-years: 60 Tobacco: How many years used: 30 alcohol intake: never substance use type: does not use caffeine: Yes Type: coffee Number of servings: 4 what type of physical activity do you participate in: none frequency: does not exercise ROS ROS ED Constitutional Constitutional ED: Denies chills or weight loss Eyes Eyes: Denies change in vision or diplopia ENT ENT ED: Denies ear pain, rhinorrhea or sore throat Cardiovascular Cardiovascular: Denies chest pain, orthopnea, palpitations or racing heartbeat Respiratory/Chest Respiratory/Chest: Reports cough, dyspnea, dyspnea on exertion and sputum; Denies orthopnea Gastrointestinal Gastrointestinal: Denies abdominal pain, diarrhea, nausea or vomiting Genitourinary Genitourinary ED: Denies dysuria, hematuria or urinary frequency Musculoskeletal Musculoskeletal: Denies arthralgias or myalgias Integumentary Denies abscess or rash Neurologic Neurologic: Denies headache(s) or weakness Psychiatric Psychiatric: Denies anxiety, depression, suicidal ideation or suicidal thoughts Endocrine Endocrinology: Denies polydipsia, polyphagia or polyuria Allergic/Immunologic Allergic/Immunologic ED: Denies mouth swelling, tongue swelling or urticaria EXAM Physical Exam Const Vital Signs: 02/14/21 16:54 02/14/21 16:56 02/14/21 16:58 Temperature 0 F L 97.2 F L Temperature Source Temporal Temporal Pulse Rate 91 Respiratory Rate 28 H Respiratory Effort Short of Breath Respiratory Pattern Tachypnea Blood Pressure 176/81 H Blood Pressure Mean 112 Pulse Ox 63 99 Oxygen Delivery Method Nasal Cannula Non-Rebreather Oxygen Flow Rate (L/min) 6 Fraction of Inspired Oxygen (FIO2) 02/14/21 17:12 02/14/21 17:25 02/14/21 17:56 Temperature 98 F Temperature Source Temporal Pulse Rate 84 86 94 Respiratory Rate 18 18 18 Respiratory Effort Respiratory Pattern Normal Normal Blood Pressure 132/72 H Blood Pressure Mean 92 Pulse Ox 98 98 96 Oxygen Delivery Method Bi-pap Bi-pap Oxygen Flow Rate (L/min) Fraction of Inspired Oxygen (FIO2) 40 40 02/14/21 18:00 Temperature 98 F Temperature Source Temporal Pulse Rate 94 Respiratory Rate 20 H Respiratory Effort Respiratory Pattern Blood Pressure 132/72 H Blood Pressure Mean 92 Pulse Ox 96 Oxygen Delivery Method Bi-pap Oxygen Flow Rate (L/min) Fraction of Inspired Oxygen (FIO2) Positive well nourished, well developed and obese General Appearance ED: well developed Nutritional Appearance: obese HEENT Reports normocephalic, head/scalp atraumatic and moist mucous membranes Eyes PERRL and EOMs intact bilaterally Neck no lymphadenopathy, supple and no JVD Resp Auscultation: wheezes and diminished lung sounds Cardio regular rate, regular rhythm and no murmurs GI normal to inspection, nondistended, normoactive bowel sounds and non-tender Palpation: soft Back/Spine no CVA tenderness and normal ROM Extremity normal to inspection General Extremety ED: Negative for edema General Extremity: Negative for edema Neuro oriented x3 and CN's II-XII intact bilaterally Sensorium / Orientation: alert Motor Exam: strength 5/5 throughout Psych mental status grossly normal Mood & Affect: Negative for depressed or tearful Skin no rashes or lesions noted and no wounds Skin Narrative: Mottling of the thorax MDM MDM MDM Narrative Medical decision making narrative: White count normal at 8.7. Normal lactic acid. My interpretation of the chest x-ray shows chronic changes but no acute infiltrate. Patient was placed on BiPAP and had significant improvement of his symptoms. He also received aerosols and Solu-Medrol. He also received a dose of azithromycin given the change in cough and sputum production. Patient will be admitted to the hospital and speak with the hospitalist. Lab Data Attestation: I reviewed the patient's lab results. Labs: Laboratory Results - last 24 hr 02/14/21 02/14/21 02/14/21 17:00 17:00 17:00 WBC 8.7 RBC 4.42 L Hgb 12.5 L Hct 42.8 MCV 96.8 H MCH 28.3 MCHC 29.2 L RDW Std Deviation 48.3 H RDW Coeff of Earle 13.4 Plt Count 244 MPV 9.6 Immature Gran % (Auto) 0.300 Neut % (Auto) 71.7 H Lymph % (Auto) 13.0 L [place] % (Auto) 12.8 H Eos % (Auto) 1.6 Baso % (Auto) 0.6 Absolute Neuts (auto) 6.2 Absolute Lymphs (auto) 1.13 Nucleated RBC % 0 PT INR APTT Sodium Potassium Chloride Carbon Dioxide Anion Gap BUN Creatinine Estim Creat Clear Calc Est GFR (MDRD) Af Amer Est GFR (MDRD) Non-Af BUN/Creatinine Ratio Glucose Lactic Acid Calcium Total Bilirubin 0.30 Direct Bilirubin 0.09 AST 19 ALT 33 Alkaline Phosphatase 77 Troponin I High Sens 7.1 B-Natriuretic Peptide 62.4 Total Protein 7.5 Albumin 3.1 L Globulin 4.4 H 02/14/21 02/14/21 02/14/21 17:00 17:35 17:35 WBC RBC Hgb Hct MCV MCH MCHC RDW Std Deviation RDW Coeff of Earle Plt Count MPV Immature Gran % (Auto) Neut % (Auto) Lymph % (Auto) [place] % (Auto) Eos % (Auto) Baso % (Auto) Absolute Neuts (auto) Absolute Lymphs (auto) Nucleated RBC % PT 13.0 INR 1.0 APTT 36.7 H Sodium 137 Potassium 4.0 Chloride 96 L Carbon Dioxide 39.0 H Anion Gap 2 L BUN 16 Creatinine 0.63 L Estim Creat Clear Calc 64.26 Est GFR (MDRD) Af Amer 162 Est GFR (MDRD) Non-Af 134 BUN/Creatinine Ratio 25.4 H Glucose 176 H Lactic Acid 1.0 Calcium 8.3 L Total Bilirubin Direct Bilirubin AST ALT Alkaline Phosphatase Troponin I High Sens B-Natriuretic Peptide Total Protein Albumin Globulin Radiography Diagnostic Testing: Radiology Impression Chest X-Ray 02/14/21 18:00 IMPRESSION: Hyperexpansion with chronic interstitial changes and fibrotic platelike areas in the left midlung zone. Negative for acute consolidation, atelectasis or pleural effusion. Stable cardiac size. Electronically Signed: Nurys Rabago MD at 18:30 EDT , Service support , EKG Initial EKG: Attestation: I personally reviewed and interpreted this EKG as follows: Comments: EKG demonstrates a normal sinus rhythm at a rate of 85 bpm no concerning features of ACS or ectopy. Critical Care Time Critical Care Time: Yes Critical care time (excluding procedures): 30-74 minutes (35 min), Including time spent:, Discussing w/Patient &/or Family/Shift Supervisor Mel[place], Discussing w/ Consultants, Arranging Admission or Transfer and Performing Direct Patient Care at Bedside Discharge Plan Dx/Rx/DC Orders Clinical Impression: Acute hypoxemic respiratory failure, Acute exacerbation of chronic obstructive pulmonary disease Disposition Disposition: [facility]
[2021-02-14] MEDS: Ipratropium/Albuterol Sulfate 3 ML AMPUL.NEB INHALATION ×2 (17:07→22:57)
[2021-02-14 17:11] LABS: Absolute Lymphocyte Count 1.13 X10^3/uL (0.83-4.51); Absolute Neutrophil Count 6.2 X10^3/uL (2.0-7.7); Basophil# 0.05 X10^3/uL; Basophil% 0.6 % (0-1); Eosinophil# 0.14 X10^3/uL; Eosinophils% 1.6 % (0-5); Hematocrit 42.8 % (40-54); Hemoglobin 12.5 g/dL (13.0-16.5); Lymphocyte # 1.13 X10^3/ul (0.83-4.51); Mean Corp Hgb Conc 29.2 g/dL (32-36); Mean Corpuscular Hgb 28.3 pg (27.0-32.0); Mean Corpuscular Volume 96.8 fL (80-94); Mean Platelet Vol. 9.6 fl (6.2-12.0); Monocyte# 1.11 X10^3/uL; Monocyte% 12.8 % (0-10); NRBC Flagged by Analyzer 0 % (0-5); Neutrophil # 6.21 X10^3/uL (2.7-7.7); Neutrophil % 71.7 % (47-70); Platelet Count 244 K/mm3 (150-450); RBC Distribution Width CV 13.4 % (11.6-14.6); RBC Distribution Width SD 48.3 fl (35.1-43.9); Red Blood Count 4.42 M/mm3 (4.6-6.2); White Blood Count 8.7 K/mm3 (4.4-11.0)
[2021-02-14] MEDS: Albuterol 2.5 MG/3 ML VIAL.NEB. INHALATION ×3 (17:15→17:17)
[2021-02-14 17:29] LABS: AST(SGOT) 19 U/L (15-37); Alanine Aminotransfer ALT/SGPT 33 U/L (16-61); Albumin, Serum 3.1 g/dL (3.2-5.0); Alkaline Phosphatase 77 U/L (45-117); Bilirubin, Direct 0.09 mg/dL (0.00-0.30); Globulin 4.4 g/dL (2.2-4.2); Protein, Total 7.5 g/dL (6.4-8.2); Troponin-I HS 7.1 pg/mL (3.0-78.5)
[2021-02-14 17:37] LABS: BNP,B-Type NATRIURETIC PEPTIDE 62.4 pg/mL (0-100)
[2021-02-14 17:56] LABS: Anion Gap 2 (5-15); BUN 16 mg/dL (7-18); BUN/Creat Ratio 25.4 RATIO (10-20); Calcium,Total 8.3 mg/dL (8.5-10.1); Chloride 96 mmol/L (98-107); Creatinine, Serum 0.63 mg/dL (0.70-1.30); EST Glomerular Filtration Rate 134 mL/min (>60); Est Glom Filt Rate - Afr Amer 162 mL/min (>60); Estimated Creatinine Clearance 64.26 ml/min; Glucose 176 mg/dL (74-106); Sodium Level 137 mmol/L (136-145)
--- NOTE | 2021-02-14 18:00 | RAD_ITS ---
STUDY: X-RAY CHEST REASON FOR EXAM: Male, 71 years old. COPD Exacerbation TECHNIQUE: 1 view COMPARISON: Prior chest radiograph 05/08/[address] prior chest CT exam of 02/11/2020 FINDINGS: Generalized hyperexpansion and stable chronic interstitial changes. Prior areas of lung abnormality have coalesced into bands of fibrosis in the mid left lung. Stable cardiac size. Normal mediastinum and earlene. Normal visualized pulmonary arteries. There is atherosclerotic tortuosity of the aortic arch and descending thoracic aorta. Normal visualized thoracic spine. Normal visualized ribs, clavicles, and shoulders. There is no demonstrated abnormality of the visualized soft tissue structures of the upper abdomen. RAD/Chest 1 View (Portable) IMPRESSION: Hyperexpansion with chronic interstitial changes and fibrotic platelike areas in the left midlung zone. Negative for acute consolidation, atelectasis or pleural effusion. Stable cardiac size. Electronically Signed: Nurys Rabago MD at 18:30 EDT , Service support ,
[2021-02-14] MEDS: MethylPREDNISolone 125 MG/2 ML Vial IV (18:01)
[2021-02-14] MEDS: 0.9% Normal Saline 1,000 ML 150 ML IV (18:01)
[2021-02-14 18:13] LABS: Partial Thromboplast Time 36.7 Seconds (24.1-36.2)
--- NOTE | 2021-02-14 18:21 | ED.RN ---
sepsis alert. aware
--- NOTE | 2021-02-14 19:38 | PCM.HP.STD ---
HPI - General General Date of Admission: 02/14/21 HPI Narrative FARRAH ANDREWS, is a 71 M With a significant history of COPD on 4 L nasal cannula oxygen; obstructive sleep apnea on home BiPAP; and a former smoker who presents to the emergency department with 3 to 4-day history of progressively worsening shortness of breath. Associated with symptoms is a new cough productive for white sputum. Further, he has wheezes; fatigue and weakness. Reports good appetite. He denies constipation or diarrhea. I did track his oxygen saturation on 4 L was 62%. At the emergency department patient was placed on BiPAP. Patient report that about a week ago patient was placed on antibiotics and steroids for a possible pneumonia/COPD. Patient had gudino virus infection in April 2020. Patient has not been vaccinated for gudino. [facility] Medical History Anemia Asthma Atrial fibrillation Chronic respiratory failure Congestive heart failure (CHF) COPD (chronic obstructive pulmonary disease) COPD (chronic obstructive pulmonary disease) Diastolic CHF, chronic Edema Emphysema, unspecified Former smoker Injury of head and neck Loose, teeth Nonrheumatic aortic (valve) insufficiency Obesity (BMI 30-39.9) On home oxygen therapy Positive occult stool blood test Restless legs Secondary pulmonary hypertension Secondary pulmonary hypertension Sleep apnea Stage 4 very severe COPD by GOLD classification Stage 4 very severe COPD by GOLD classification Wears glasses Home Medications budesonide-formoterol 2 puff INHALATION BID 02/22/15 [History Last Taken 11/26/20 05:15] finasteride 5 mg PO DAILY 05/05/20 [History Last Taken Unknown] albuterol sulfate 5 mg/mL(0.5 %) solution for nebulization 5 mg INHALATION Q6H PRN 07/04/20 [History Last Taken 11/26/20 05:15] ascorbic acid (vitamin C) 500 mg tablet 1,000 mg PO DAILY tab 07/04/20 [History Last Taken Unknown] calcium carb-Ca gluc 500 mg calcium-magnesium ox-Mg gluc 250 mg tablet 1 tab PO DAILY tab 07/04/20 [History Last Taken Unknown] cholecalciferol (vitamin D3) 25 mcg (1,000 unit) capsule 100 mcg PO DAILY cap 07/04/20 [History Last Taken Unknown] garlic 600 mg PO DAILY tab 07/04/20 [History Last Taken Unknown] tamsulosin 0.4 mg capsule 0.4 mg PO DAILY cap 07/04/20 [History Last Taken Unknown] zinc 50 mg tablet 100 mg PO DAILY tab 07/04/20 [History Last Taken Unknown] albuterol sulfate 90 mcg/actuation aerosol inhaler 2 puff INHALATION Q6H PRN #18 g 09/19/20 [Rx Last Taken Unknown] ferrous sulfate 325 mg PO DAILY 10/09/20 [History Last Taken Unknown] metoprolol tartrate 25 mg PO BID 10/09/20 [History Last Taken 11/26/20 05:15] tiotropium bromide 2.5 mcg/actuation mist for inhalation 2 puff INHALATION DAILY #4 gm 10/16/20 [Rx Last Taken Unknown] aspirin 81 mg tablet,delayed release 81 mg PO DAILY 10/24/20 [History Last Taken Unknown] furosemide 20 mg tablet 40 mg PO QDAY #1 tablet 11/01/20 [Rx Last Taken Unknown] lansoprazole 30 mg capsule,delayed release 30 mg PO BID #28 cap 12/02/20 [Rx Last Taken Unknown] Allergy/AdvReac Type Severity Reaction Status Date / Time No Known Allergies Allergy Verified 02/14/21 16:54 Family History Mother Cancer stomach Father Heart disease Brother Cancer Surgical History History of surgery of head Hx of cataract surgery Hx of colonoscopy Social History Smoking Status: Former smoker pack-years: 60 Tobacco: How many years used: 30 alcohol intake: never substance use type: does not use caffeine: Yes Type: coffee Number of servings: 4 what type of physical activity do you participate in: none frequency: does not exercise ROS ROS Narrative Constitutional: Reports fatigue and generalized weakness. Denies anorexia and change in weight Eyes: Denies blurry vision, change in eye color, change in vision, discharge from eye(s), double vision, erythema, eye pain, loss of vision or other HEENT: Denies abnormal hearing, dysphagia, ear pain, epistaxis, headache(s), hearing loss, nasal congestion, nasal discharge, post nasal drip, sinus pressure, sore throat or other Cardiovascular: Denies chest pain. Denies dyspnea on exertion, orthopnea and paroxysmal nocturnal dyspnea Respiratory/Chest: Reports shortness of breath and productive cough. Reports wheezes. Gastrointestinal: Denies abdominal pain, coffee ground emesis, constipation, diarrhea, dyspepsia, hematemesis, hematochezia, loose stools, melena, nausea, vomiting or other Genitourinary: Denies burning urination, difficulty urinating, dysuria, hematuria, nocturia, urinary frequency, urinary hesitancy, urinary incontinence, urinary urgency or other Musculoskeletal: Denies arthralgias, back pain, joint pain, joint stiffness, joint swelling, myalgias, neck pain or other Neurologic: Denies abnormal gait, abnormal speech, confusion, disequilibrium, dizziness, focal weakness, headache(s), numbness, paresthesias, seizure-like activity, seizures, syncope, tingling, tremor(s) or other Psychiatric: Denies anxiety, depression, homicidal ideation, suicidal ideation or other Endocrinology: Denies change in body appearance, cold intolerance, excessive sweating, heat intolerance, polydipsia, polyuria or other Hematologic/Lymphatic: Denies anemia, easy bleeding, easy bruising, lymphadenopathy or other Integumentary: Denies ulcer on buttocks. Allergic/Immunologic: Denies rhinitis, hives, eczema, asthma or other Vital Signs Vital Signs Vital Signs: 02/14/21 16:54 02/14/21 16:56 02/14/21 16:58 Temperature 0 F L 97.2 F L Temperature Source Temporal Temporal Pulse Rate 91 Respiratory Rate 28 H Respiratory Effort Short of Breath Respiratory Pattern Tachypnea Blood Pressure 176/81 H Blood Pressure Mean 112 Pulse Ox 63 99 Oxygen Delivery Method Nasal Cannula Non-Rebreather Oxygen Flow Rate (L/min) 6 Fraction of Inspired Oxygen (FIO2) 02/14/21 17:12 02/14/21 17:25 02/14/21 17:56 Temperature 98 F Temperature Source Temporal Pulse Rate 84 86 94 Respiratory Rate 18 18 18 Respiratory Effort Respiratory Pattern Normal Normal Blood Pressure 132/72 H Blood Pressure Mean 92 Pulse Ox 98 98 96 Oxygen Delivery Method Bi-pap Bi-pap Oxygen Flow Rate (L/min) Fraction of Inspired Oxygen (FIO2) 40 40 02/14/21 18:00 02/14/21 19:13 Temperature 98 F 97.9 F Temperature Source Temporal Temporal Pulse Rate 94 91 Respiratory Rate 20 H 20 H Respiratory Effort Respiratory Pattern Blood Pressure 132/72 H 149/81 H Blood Pressure Mean 92 103 Pulse Ox 96 100 Oxygen Delivery Method Bi-pap Bi-pap Oxygen Flow Rate (L/min) Fraction of Inspired Oxygen (FIO2) 40 Weight Weight: 136.078 kg Body Mass Index (BMI) 47.0 Physical Exam Narrative Physical exam: General: Well-nourished, well-developed, no acute distress Head: Normocephalic, atraumatic, no tenderness Eyes: PERRLA, EOMI ENT, no trauma, moist mucous membranes, no rhinorrhea Neck: Nontender, full range of motion, no spinal tenderness, deformities, step-off CVS: Regular rate and rhythm Respiratory: Using accessory muscles of respiration. Rhonchi and wheezes. On BiPAP. Abdomen: Soft, nontender, nondistended, normal bowel sounds, no masses : Deferred Back: Nontender, no CVA tenderness, no midline spinal tenderness, deformities, step-offs Extremities: Nontender full range of motion, no trauma Skin: Normal color, no trauma, abrasions Neuro: Alert, oriented, cranial nerves II through XII grossly intact. Psychiatry: Normal mood. Normal affect. Not depressed. Not anxious. Results Lab / Micro Data Result Diagrams: 02/14/21 17:00 02/14/21 17:00 Labs: Laboratory Results - last 24 hr 02/14/21 17:00: Total Bilirubin 0.30, Direct Bilirubin 0.09, AST 19, ALT 33, Alkaline Phosphatase 77, Troponin I High Sens 7.1, Total Protein 7.5, Albumin 3.1 L, Globulin 4.4 H 02/14/21 17:00: WBC 8.7, RBC 4.42 L, Hgb 12.5 L, Hct 42.8, MCV 96.8 H, MCH 28.3, MCHC 29.2 L, RDW Std Deviation 48.3 H, RDW Coeff of Earle 13.4, Plt Count 244, MPV 9.6, Immature Gran % (Auto) 0.300, Neut % (Auto) 71.7 H, Lymph % (Auto) 13.0 L, [place] % (Auto) 12.8 H, Eos % (Auto) 1.6, Baso % (Auto) 0.6, Absolute Neuts (auto) 6.2, Absolute Lymphs (auto) 1.13, Nucleated RBC % 0 02/14/21 17:00: B-Natriuretic Peptide 62.4 02/14/21 17:00: Sodium 137, Potassium 4.0, Chloride 96 L, Carbon Dioxide 39.0 H, Anion Gap 2 L, BUN 16, Creatinine 0.63 L, Estim Creat Clear Calc 64.26, Est GFR (MDRD) Af Amer 162, Est GFR (MDRD) Non-Af 134, BUN/Creatinine Ratio 25.4 H, Glucose 176 H, Calcium 8.3 L 02/14/21 17:35: PT 13.0, INR 1.0, APTT 36.7 H 02/14/21 17:35: Lactic Acid 1.0 Micro: Microbiology 02/14/21 18:00 Mucosa - Nose SARS-CoV-2 Antigen (Rapid) - Final Radiology Impression Chest X-Ray 02/14/21 18:00 IMPRESSION: Hyperexpansion with chronic interstitial changes and fibrotic platelike areas in the left midlung zone. Negative for acute consolidation, atelectasis or pleural effusion. Stable cardiac size. Electronically Signed: Nurys Rabago MD at 18:30 EDT , Service support , Assessment & Plan Assessment/Plan (1) Acute hypoxemic respiratory failure: (2) Acute exacerbation of chronic obstructive pulmonary disease: PLAN: Acute hypoxemic respiratory failure secondary to acute exacerbation of COPD Radiologist impression of chest x-ray:Hyperexpansion with chronic interstitial changes and fibrotic platelike areas in the left midlung zone. Negative for acute consolidation, atelectasis or pleural effusion. Stable cardiac size. Actual CXR image was independently reviewed and I agree with radiologist interpretation. Rapid Covid screen obtained at the emergent department was negative. Scheduled DuoNeb Albuterol as needed Solu-Medrol Azithromycin and ceftriaxone ordered. Placed on BiPAP at the emergency department and continued. Emergent department labs reviewed showed normal white counts. BMP showed normal sodium and potassium. Monitor BMP and CBC Hypertension Blood pressure is stable in regard to his age Metoprolol and Lasix continued. Trend blood pressure and adjust blood pressure medications. GERD: PPI continued. BPH: Finasteride continued DVT prophylaxis Subcutaneous Lovenox ordered.
--- NOTE | 2021-02-14 20:34 | CPS ---
Placed patient on AVAPS BiPAP setting for low tidal volumes observed on previous BiPAP settings. RN aware.
[2021-02-14] MEDS: guaiFENesin 1,200 MG Tablet 1200 MG PO (22:10)
[2021-02-15] VITALS (23 sets, daily range): BP systolic 115–143; BP diastolic 69–85; PULSE 70–92; RESP 12–20; TEMP 36–36.7; O2SAT 92–100
[2021-02-15] MEDS: 0.9% Saline Lock 10 ML Syringe IV ×3 (05:12→21:23)
[2021-02-15] MEDS: Ipratropium/Albuterol Sulfate 3 ML AMPUL.NEB INHALATION ×5 (07:13→22:51)
[2021-02-15 07:36] LABS: Absolute Lymphocyte Count 0.42 X10^3/uL (0.83-4.51); Absolute Neutrophil Count 5.5 X10^3/uL (2.0-7.7); Basophil# 0.01 X10^3/uL; Basophil% 0.2 % (0-1); Hematocrit 42.2 % (40-54); Hemoglobin 12.4 g/dL (13.0-16.5); Lymphocyte # 0.42 X10^3/ul (0.83-4.51); Lymphocyte % 6.9 % (19-41); Mean Corp Hgb Conc 29.4 g/dL (32-36); Mean Corpuscular Hgb 28.3 pg (27.0-32.0); Mean Corpuscular Volume 96.3 fL (80-94); Mean Platelet Vol. 9.8 fl (6.2-12.0); Monocyte% 1.6 % (0-10); NRBC Flagged by Analyzer 0 % (0-5); Neutrophil # 5.52 X10^3/uL (2.7-7.7); Neutrophil % 90.8 % (47-70); POSITIVE DIFFERENTIAL YES; Platelet Count 245 K/mm3 (150-450); RBC Distribution Width CV 13.2 % (11.6-14.6); Red Blood Count 4.38 M/mm3 (4.6-6.2); White Blood Count 6.1 K/mm3 (4.4-11.0)
[2021-02-15 07:37] LABS: Differential Indicated SCAN CRITERIA MET
[2021-02-15 08:07] LABS: Anion Gap 0 (5-15); BUN 12 mg/dL (7-18); BUN/Creat Ratio 23.8 RATIO (10-20); Calcium,Total 8.7 mg/dL (8.5-10.1); Chloride 99 mmol/L (98-107); EST Glomerular Filtration Rate 173 mL/min (>60); Est Glom Filt Rate - Afr Amer 209 mL/min (>60); Estimated Creatinine Clearance 59.79 ml/min; Glucose 155 mg/dL (74-106); Potassium 4.5 mmol/L (3.5-5.1); Sodium Level 138 mmol/L (136-145)
[2021-02-15] MEDS: Aspirin E.C. 81 MG Tablet PO (08:43)
[2021-02-15] MEDS: Metoprolol Tartrate 25 MG Tablet PO ×2 (08:58→21:21)
[2021-02-15] MEDS: Enoxaparin 40 MG/0.4 ML Syringe SC (08:58)
[2021-02-15] MEDS: guaiFENesin 1,200 MG Tablet 1200 MG PO ×2 (08:58→21:20)
[2021-02-15] MEDS: Pantoprazole Sodium 40 MG Tablet PO ×2 (08:58→21:20)
[2021-02-15] MEDS: Finasteride 5 MG Tablet PO (08:59)
[2021-02-15] MEDS: Furosemide 40 MG Tablet PO (08:59)
[2021-02-15] MEDS: Tamsulosin HCl 0.4 MG Capsule PO (08:59)
--- NOTE | 2021-02-15 11:42 | PCM.PN.HOSP ---
Documented by User: Earle WEBBER 02/15/21 11:54 Subjective Subjective Patient is a 71-year-old male comfortably resting in the bed on a BiPAP mask, alert and orient x3. Patient still reports being mildly short of breath although reports this has improved from admission. Denies chest pain, palpitations, hemoptysis, purulent sputum production, fever, chills, N/V/D. Objective Data Objective Data Vital Signs: Vital Signs Temp Pulse Resp BP Pulse Ox 98.1 F 79 17 132/72 H 94 02/15/21 08:33 02/15/21 11:05 02/15/21 11:05 02/15/21 08:58 02/15/21 11:05 Oxygen Flow Rate (L/min) 4 Oxygen Delivery Method Bi-pap Weight: 272 lb 0.807 oz Body Mass Index (BMI) 45.2 Intake & Output: Intake and Output for Last 24 Hours 02/13/21 02/14/21 02/15/21 23:59 23:59 23:59 Intake Total 255 / 315 1160 / 1160 Output Total 675 / 675 Balance 255 / 115 485 / 485 Lab / Micro Data Result Diagrams: 02/15/21 07:17 02/15/21 07:17 Labs: Laboratory Results - last 24 hr 02/14/21 17:00: Total Bilirubin 0.30, Direct Bilirubin 0.09, AST 19, ALT 33, Alkaline Phosphatase 77, Troponin I High Sens 7.1, Total Protein 7.5, Albumin 3.1 L, Globulin 4.4 H 02/14/21 17:00: WBC 8.7, RBC 4.42 L, Hgb 12.5 L, Hct 42.8, MCV 96.8 H, MCH 28.3, MCHC 29.2 L, RDW Std Deviation 48.3 H, RDW Coeff of Earle 13.4, Plt Count 244, MPV 9.6, Immature Gran % (Auto) 0.300, Neut % (Auto) 71.7 H, Lymph % (Auto) 13.0 L, [place] % (Auto) 12.8 H, Eos % (Auto) 1.6, Baso % (Auto) 0.6, Absolute Neuts (auto) 6.2, Absolute Lymphs (auto) 1.13, Nucleated RBC % 0 02/14/21 17:00: B-Natriuretic Peptide 62.4 02/14/21 17:00: Sodium 137, Potassium 4.0, Chloride 96 L, Carbon Dioxide 39.0 H, Anion Gap 2 L, BUN 16, Creatinine 0.63 L, Estim Creat Clear Calc 64.26, Est GFR (MDRD) Af Amer 162, Est GFR (MDRD) Non-Af 134, BUN/Creatinine Ratio 25.4 H, Glucose 176 H, Calcium 8.3 L 02/14/21 17:35: PT 13.0, INR 1.0, APTT 36.7 H 02/14/21 17:35: Lactic Acid 1.0 02/15/21 07:17: WBC 6.1, RBC 4.38 L, Hgb 12.4 L, Hct 42.2, MCV 96.3 H, MCH 28.3, MCHC 29.4 L, RDW Std Deviation 48.0 H, RDW Coeff of Earle 13.2, Plt Count 245, MPV 9.8, Immature Gran % (Auto) 0.500, Neut % (Auto) 90.8 H, Lymph % (Auto) 6.9 L, [place] % (Auto) 1.6, Eos % (Auto) 0.0, Baso % (Auto) 0.2, Absolute Neuts (auto) 5.5, Absolute Lymphs (auto) 0.42 L, Nucleated RBC % 0 02/15/21 07:17: Sodium 138, Potassium 4.5, Chloride 99, Carbon Dioxide 39.0 H, Anion Gap 0 L, BUN 12, Creatinine 0.50 L, Estim Creat Clear Calc 59.79, Est GFR (MDRD) Af Amer 209, Est GFR (MDRD) Non-Af 173, BUN/Creatinine Ratio 23.8 H, Glucose 155 H, Calcium 8.7 Micro: Microbiology 02/14/21 18:00 Mucosa - Nose SARS-CoV-2 Antigen (Rapid) - Final Radiography Diagnostic Testing: Radiology Impression Chest X-Ray 02/14/21 18:00 IMPRESSION: Hyperexpansion with chronic interstitial changes and fibrotic platelike areas in the left midlung zone. Negative for acute consolidation, atelectasis or pleural effusion. Stable cardiac size. Electronically Signed: Nurys Rabago MD at 18:30 EDT , Service support , Physical Exam Const alert, oriented x3 and no apparent distress HEENT head/scalp atraumatic, moist oral mucous membranes and oropharynx normal Head and Scalp: normocephalic Eyes PERRL, EOMs intact bilaterally and conjunctivae normal Neck no lymphadenopathy, supple and no JVD Resp Effort and Inspection: abnormal respiratory pattern, tachypneic and labored Auscultation: rales, wheezes and diminished lung sounds Cardio regular rate, regular rhythm, no murmurs and no JVD GI normal to inspection, nondistended, normoactive bowel sounds, soft to palpation and non-tender Extremity normal to inspection, full ROM and no clubbing, cyanosis or edema Skin no rashes or lesions noted, no wounds and skin turgor normal Neuro CN's II-XII intact bilaterally Psych affect normal Assessment & Plan Assessment/Plan (1) Acute hypoxemic respiratory failure: (2) Acute exacerbation of chronic obstructive pulmonary disease: (3) Stage 4 very severe COPD by GOLD classification: (4) COPD (chronic obstructive pulmonary disease): QUALIFIERS: COPD type: unspecified COPD Qualified Code(s): J44.9 - Chronic obstructive pulmonary disease, unspecified (5) Sleep apnea: QUALIFIERS: Sleep apnea type: obstructive Qualified Code(s): G47.33 - Obstructive sleep apnea (adult) (pediatric) (6) Chronic respiratory failure: QUALIFIERS: Respiratory failure complication: hypoxia Qualified Code(s): J96.11 - Chronic respiratory failure with hypoxia PLAN: Day 2: See subjective. Discharge planning: Patient to be discharged home, no home health care needs identified. 1) acute hypoxemic respiratory failure secondary to acute on chronic exacerbation of COPD. Patient currently satting 94% on BiPAP at a FiO2 of 35. Chest x-ray admission demonstrated hyperexpanded whaley and chronic interstitial and fibrotic changes in the left midlung, no acute consolidation atelectasis or pleural effusion noted. All rapid Covid negative. Home medication list includes albuterol as needed, Symbicort and TH opium. Patient uses 4 L of oxygen at home and is able to complete his ADLs. Plan; continue BiPAP, continue Solu-Medrol, continue scheduled duo nebs, albuterol as needed, continue azithromycin, hold home medications. 2) HTN Stable, continue metoprolol and Lasix. 3)GERD Continue PPI 4) BPH Continue finasteride and Flomax DVT prophylaxis -Lovenox Patient seen by Earle Barnard PA-C, under the supervision of Dr. Thomas. Documented by User: Dr. Galindo Thomas MD 02/15/21 15:23 Subjective Subjective Patient is short of breath sitting on the bed on the BiPAP. Denies any fever at home. Patient is worsening of cough along with thick whitish sputum. Objective Data Lab / Micro Data Result Diagrams: 02/15/21 07:17 02/15/21 07:17 Physical Exam Narrative Physical exam General: Alert, Oriented x3, Cooperative, BMI 45.3 kg/m? HEENT: Atraumatic, PERRLA, EOMI, Normocephalic Oral: No Gingival or Mucosal Lesions/ Ulcerations Neck: Supple, No JVD, Negative Carotid Bruits Lungs: Air entry severely diminished in both lungs. Expiratory phase prolonged. Bilateral expiratory rhonchi. On BiPAP Cardiovascular: Regular rate, Regular Rhythm, Normal S1, Normal S2, No murmurs Abdomen: Bowel Sounds Present, Soft, Non Tender, Non-Distended : No renal angle tenderness. No suprapubic tenderness. Extremities: No edema, Capillary Refill Less than 3 Seconds Skin: No rashes, No breakdown Musculoskeletal: No Tenderness to Palpation of Joints or Extremities Neurological: Cranial nerves II-XII grossly intact, Deep Tendon Reflexes 2+/4 and Symmetrical, Neuro grossly intact Psych/Mental Status: Normal Affect, Appropriate. Assessment & Plan Assessment/Plan (1) Acute hypoxemic respiratory failure: (2) Acute exacerbation of chronic obstructive pulmonary disease: PLAN: This patient was seen in conjunction with AKBAR Clark. I have independently interviewed and examined the patient and reviewed pertinent history, examination findings, laboratory and plan of management. I have reviewed the note and agree with the documented findings with the few additional points. In brief, patient is admitted for acute on chronic hypoxic respiratory failure secondary to COPD exacerbation. Patient on 4 L of home oxygen with history of obstructive sleep apnea on BiPAP, former smoker. Denies history of coronary artery disease, CHF, arrhythmia. BNP normal. Patient baseline bicarb is elevated therefore chronic retainer. Continue treatment as mentioned above. Other comorbidities as mentioned above including hypertension, GERD, BPH and morbid obesity I have discussed my assessment with AKBAR Clark and orders have been reviewed. Charges/Coding Visit Charges Inpatient E&M: 88152 Subs Hosp L2
--- NOTE | 2021-02-15 12:10 | CASEMGMT ---
KALYANI PAYNE Assessment: Face to Face with pt for initial transition planning/care coordination assessment. RN KERRY introduced self and role at [facility], pt voices understanding and consents to assessment. Pt is A/O x4 and answers all questions appropriately at this time. Pt sitting on eob eating lunch with O2 on in no distress. at bedside. Care providers, pharmacy, and demographics verified/updated. Admitting Dx: COPD exac PCP: Olga Specialists: Cody, cardio; Pablo puldana Preferred Pharmacy: [facility] Insurance: [employer] [facility] Prescription Benefit: yes LW/HPOA: Pt denies having LW/DPOA. LNOK:Isela Powers, ; Yesenia Mcnamara, dtr Living Arrangements: Pt lives with in a single story house with 2 steps to enter with no rail. Pt states he needs assist from with ADL's. Pt denies conerns at home. Transportation: Pt drives self and denies concerns with transportation. DME/HHC/SNF: Pt has a cpap machine, O2 at 4L [place] cont through [employer], nebulizer, cane and walker but pt does not use. Pt denies hx of HHC or SNF stays. Pt states no concerns with going home at time of dc. 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 Pt denies need for HHC at this time. Pt states no further concerns/needs. CM to follow for O2. Advised pt to ask CM if any further question/concerns/needs arise, voices understanding. Pt Goal: Home Plan: Home, green sheet on chart in case pt needs >4L O2 cont.
[2021-02-15] MEDS: Ferrous Sulfate 325 MG Tablet PO (13:20)
--- NOTE | 2021-02-15 23:00 | CPS ---
Pt requested to wear his personal PAP machine [employer] instead of hospitals. 4L oxygen bled into it and pt on RN's continuous pulse ox to monitor vitals.
[2021-02-16] VITALS (20 sets, daily range): BP systolic 118–138; BP diastolic 48–78; PULSE 70–107; RESP 16–20; TEMP 36.6–36.8; O2SAT 84–100
--- NOTE | 2021-02-16 04:42 | NURSING ---
Report given to Yoselin AUGUSTE who is assuming care of pt. at this time.
[2021-02-16] MEDS: 0.9% Saline Lock 10 ML Syringe IV ×2 (05:16→13:48)
[2021-02-16 06:27] LABS: Absolute Lymphocyte Count 0.71 X10^3/uL (0.83-4.51); Absolute Neutrophil Count 11.6 X10^3/uL (2.0-7.7); Basophil# 0.01 X10^3/uL; Basophil% 0.1 % (0-1); Hematocrit 42.2 % (40-54); Hemoglobin 12.4 g/dL (13.0-16.5); Lymphocyte # 0.71 X10^3/ul (0.83-4.51); Lymphocyte % 5.5 % (19-41); Mean Corp Hgb Conc 29.4 g/dL (32-36); Mean Corpuscular Hgb 28.2 pg (27.0-32.0); Mean Corpuscular Volume 96.1 fL (80-94); Mean Platelet Vol. 9.8 fl (6.2-12.0); Monocyte# 0.49 X10^3/uL; Monocyte% 3.8 % (0-10); NRBC Flagged by Analyzer 0 % (0-5); Neutrophil # 11.56 X10^3/uL (2.7-7.7); Neutrophil % 90.1 % (47-70); Platelet Count 298 K/mm3 (150-450); RBC Distribution Width CV 13.2 % (11.6-14.6); RBC Distribution Width SD 47.1 fl (35.1-43.9); Red Blood Count 4.39 M/mm3 (4.6-6.2); White Blood Count 12.8 K/mm3 (4.4-11.0)
[2021-02-16 06:52] LABS: Anion Gap 0 (5-15); BUN 22 mg/dL (7-18); BUN/Creat Ratio 31.6 RATIO (10-20); Chloride 97 mmol/L (98-107); EST Glomerular Filtration Rate 119 mL/min (>60); Est Glom Filt Rate - Afr Amer 144 mL/min (>60); Estimated Creatinine Clearance 59.79 ml/min; Glucose 161 mg/dL (74-106); Potassium 4.6 mmol/L (3.5-5.1); Sodium Level 137 mmol/L (136-145)
[2021-02-16] MEDS: Ipratropium/Albuterol Sulfate 3 ML AMPUL.NEB INHALATION ×5 (07:01→22:46)
[2021-02-16] MEDS: Aspirin E.C. 81 MG Tablet PO (08:34)
[2021-02-16] MEDS: Pantoprazole Sodium 40 MG Tablet PO ×2 (10:14→21:35)
[2021-02-16] MEDS: Metoprolol Tartrate 25 MG Tablet PO ×2 (10:14→21:35)
[2021-02-16] MEDS: Enoxaparin 40 MG/0.4 ML Syringe SC (10:14)
[2021-02-16] MEDS: guaiFENesin 1,200 MG Tablet 1200 MG PO ×2 (10:14→21:35)
[2021-02-16] MEDS: Tamsulosin HCl 0.4 MG Capsule PO (10:15)
[2021-02-16] MEDS: Furosemide 40 MG Tablet PO (10:15)
[2021-02-16] MEDS: Finasteride 5 MG Tablet PO (10:15)
--- NOTE | 2021-02-16 11:06 | PCM.DC ---
Discharge Instructions Diet Discharge Diet: No restrictions Activity Discharge Activity: Return to Normal Activity Weight Bearing Status: Weight bearing as tolerated Dressing / Incision Call your doctor if you observe: Fever of 101 or Higher, Numbness or Tingling, Shortness of breath, Dizziness, Chest pain, Increased palpitations (irregular heartbeat) and Calf discomfort Follow Up Care Please Follow Up With: Primary care provider When: Within the next two weeks. Test Results: Test results from this visit will be discussed in further detail at your follow-up appointment, if applicable. Discharge Plan Admission Admit Date/Time: 02/14/21 19:19 Primary Reason for Your Visit: Shortness of breath Attending Provider: Galindo Thomas Primary Care Provider: Earle Espinoza Discharge Orders/Prescriptions Prescriptions: New prednisone 10 mg tablet See Taper mg PO DAILY Qty: 30 RF: 0 Continued Calcium Magnesium 500 mg calcium -250 mg tablet 1 tab PO DAILY RF: 0 garlic Tablet 600 mg PO DAILY RF: 0 ascorbic acid (vitamin C) 500 mg tablet 1,000 mg PO DAILY RF: 0 zinc 50 mg tablet 100 mg PO DAILY RF: 0 cholecalciferol (vitamin D3) 25 mcg (1,000 unit) capsule 100 mcg PO DAILY RF: 0 albuterol sulfate 5 mg/mL solution for nebulization 5 mg INHALATION Q6H PRN (Reason: sob) RF: 0 albuterol sulfate 90 mcg/actuation HFA aerosol inhaler 2 puff INHALATION Q6H PRN (Reason: shortness of breath or wheezing) Qty: 18 RF: 3 furosemide [Lasix] 20 mg tablet 40 mg PO QDAY Qty: 1 RF: 0 aspirin [Adult Low Dose Aspirin] 81 mg tablet,delayed release (DR/EC) 81 mg PO DAILY RF: 0 budesonide-formoterol 1 INHALER inhaler 2 puff INHALATION BID RF: 0 tamsulosin 0.4 mg capsule 0.4 mg PO DAILY RF: 0 finasteride 5 MG tablet 5 mg PO DAILY RF: 0 ferrous sulfate 325 MG tablet 325 mg PO DAILY RF: 0 metoprolol tartrate 25 MG tablet 25 mg PO BID RF: 0 tiotropium bromide 2.5 mcg/actuation mist 2 puff INHALATION DAILY Qty: 4 RF: 6 lansoprazole 30 mg capsule,delayed release(DR/EC) 30 mg PO BID Qty: 28 RF: 0 Referrals / Follow Up: Earle Espinoza MD [Primary Care Provider] - Within 2 Weeks Disposition Disposition (needs filled in before D/C Order can be placed): Home, Self Care
[2021-02-16] MEDS: Ferrous Sulfate 325 MG Tablet PO (12:02)
--- NOTE | 2021-02-16 13:07 | PN.HOSP_ITS ---
Documented by User: Earle WEBBER 02/16/21 13:12 Subjective Subjective Patient is a 71-year-old male comfortably resting in bed, alert and oriented x3. Patient reports subjective improvement in regards to his shortness of breath from admission. Denies chest pain, shortness of breath, palpitations, hemopty sis, sputum production, fever, chills, N/V/D. Objective Data Objective Data Vital Signs: Vital Signs Temp Pulse Resp BP Pulse Ox 98.1 F 89 16 133/48 H 100 02/16/21 10:11 02/16/21 10:14 02/16/21 10:11 02/16/21 10:14 02/16/21 11:15 Oxygen Flow Rate (L/min) [ 6 AMBULATING with Oxygen #3] Oxygen Flow Rate (L/min) [ 5 AMBULATING with Oxygen #2] Oxygen Flow Rate (L/min) [ 4 AMBULATING with Oxygen #1] Oxygen Flow Rate (L/min) [At 4 REST with Oxygen] Oxygen Flow Rate (L/min) 4 Oxygen Delivery Method Nasal Cannula Weight: 272 lb 0.807 oz Body Mass Index (BMI) 45.2 Intake & Output: Intake and Output for Last 24 Hours 02/14/21 02/15/21 02/16/21 23:59 23:59 23:59 Intake Total 255 / 315 2575 / 2575 520 / 520 Output Total 675 / 675 350 / 350 Balance 255 / 115 1900 / 1900 170 / 170 Medical Nutrition Assessment Dietitian: Nutrition Therapy Diagnosis Start: 02/15/21 15:0 9 Freq: Status: Active Protocol: Document 02/15/21 15:21 BP (Rec: 02/15/21 15:21 BP [id number]) Nutrition Malnutrition Evidence of Malnutrition Exists No Intake Problem Decreased Nutrient Needs (specify) Etiology sodium related to heart failure Signs/Symptoms as evidenced by BLE non- pitting edema. Status Active Problem Clinical Problem Obese, Class 3 Etiology related to excessive energy intake and predicted physical inactivity Signs/Symptoms as evidenced by pt report eating all of the time, eating throughout the day vs set meal times, and BMI 45.3. Status Active Problem Recommendation Dietitian Recommendations/Changes Will provide Cardiac diet with sodium restriction related to pt CHF and edema. Rec fluid restriction as indicated. Lab / Micro Data Result Diagrams: 02/16/21 05:39 02/16/21 05:39 Labs: Laboratory Results - last 24 hr 02/16/21 05:39: WBC 12.8 H, RBC 4.39 L, Hgb 12.4 L, Hct 42.2, MCV 96.1 H, MCH 28.2, MCHC 29.4 L, RDW Std Deviation 47.1 H, RDW Coeff of Earle 13.2, Plt Count 298, MPV 9.8, Immature Gran % (Auto) 0.500, Neut % (Auto) 90.1 H, Lymph % (Auto) 5.5 L, [place] % (Auto) 3.8, Eos % (Auto) 0.0, Baso % (Auto) 0.1, Absolute Neuts (auto) 11.6 H, Absolute Lymphs (auto) 0.71 L, Nucleated RBC % 0 02/16/21 05:39: Sodium 137, Potassium 4.6, Chloride 97 L, Carbon Dioxide 40.0 H, Anion Gap 0 L, BUN 22 H, Creatinine 0.70, Estim Creat Clear Calc 59.79, Est GFR (MDRD) Af Amer 144, Est GFR (MDRD) Non-Af 119, BUN/Creatinine Ratio 31.6 H, Glucose 161 H, Calcium 9.0 Micro: Microbiology 02/14/21 18:00 Mucosa - Nose SARS-CoV-2 Antigen (Rapid) - Final Physical Exam Const alert, oriented x3 and no apparent distress HEENT head/scalp atraumatic and moist oral mucous membranes Head and Scalp: normocephalic Eyes PERRL, EOMs intact bilaterally and conjunctivae normal Neck no lymphadenopathy, supple and no JVD Resp normal respiratory effort, normal air movement and no retractions Resp Narrative: Currently satting 100% on 4 L via nasal cannula. Auscultation: diminished lung sounds Cardio regular rate, regular rhythm, no murmurs and no JVD GI normal to inspection, nondistended, normoactive bowel sounds, soft to palpation and non-tender Extremity normal to inspection, full ROM and no clubbing, cyanosis or edema Skin no rashes or lesions noted, no wounds, skin turgor normal and no jaundice Neuro CN's II-XII intact bilaterally Psych affect normal Assessment & Plan Assessment/Plan (1) Acute hypoxemic respiratory failure: (2) Acute exacerbation of chronic obstructive pulmonary disease: (3) Stage 4 very severe COPD by GOLD classification: (4) Chronic respiratory failure: QUALIFIERS: Respiratory failure complication: hypoxia Qualified Code(s): J96.11 - Chronic respiratory failure with hypoxia (5) Sleep apnea: QUALIFIERS: Sleep apnea type: obstructive Qualified Code(s): G47.33 - Obstructive sleep apnea (adult) (pediatric) PLAN: Day 3: See subjective. Discharge planning: Patient to be discharged home when medically ready, no home health care needs identified. 1) acute hypoxemic respiratory failure secondary to acute on chronic exacerbation of COPD. Initial plan was for patient to be discharged home today as he is currently return to his home oxygen prescription and is satting above 90%. With ambulation patient required 6 L to maintain saturations above 88%. Will reattempt amatory pulse ox tomorrow morning for discharge. Home medication list includes albuterol as needed, Symbicort and TH opium. Patient uses 4 L of oxygen at home and is able to complete his ADLs. Plan; continue BiPAP, continue Solu-Medrol, continue scheduled duo nebs, albuterol as needed, continue azithromycin, hold home medications. 2) HTN Stable, continue metoprolol and Lasix. 3)GERD Continue PPI 4) BPH Continue finasteride and Flomax DVT prophylaxis -Lovenox Patient seen by Earle Barnard PA-C, under the supervision of Dr. Thomas. Documented by User: Dr. Galindo Thomas MD 02/16/21 14:54 Subjective Subjective Patient comfortable at rest but he got very short of breath as soon as he started walking and oxygen requirement to 6 L. No fever Objective Data Lab / Micro Data Result Diagrams: 02/16/21 05:39 02/16/21 05:39 Physical Exam Narrative Physical exam General: Alert, Oriented x3, Cooperative, BMI 45.3 kg/m? HEENT: Atraumatic, PERRLA, EOMI, Normocephalic Oral: No Gingival or Mucosal Lesions/ Ulcerations Neck: Supple, No JVD, Negative Carotid Bruits Lungs: Air entry severely diminished in both lungs. Bilateral expiratory rhonchi. On BiPAP at night, nasal cannula at bedtime Cardiovascular: Regular rate, Regular Rhythm, Normal S1, Normal S2, No murmurs Abdomen: Bowel Sounds Present, Soft, Non Tender, Non-Distended : No renal angle tenderness. No suprapubic tenderness. Extremities: No edema, Capillary Refill Less than 3 Seconds Skin: No rashes, No breakdown Musculoskeletal: No Tenderness to Palpation of Joints or Extremities Neurological: Cranial nerves II-XII grossly intact, Deep Tendon Reflexes 2+/4 and Symmetrical, Neuro grossly intact Psych/Mental Status: Normal Affect, Appropriate. Assessment & Plan Assessment/Plan (1) Acute hypoxemic respiratory failure: (2) Acute exacerbation of chronic obstructive pulmonary disease: PLAN: This patient was seen in conjunction with AKBAR Clark. I have independently interviewed and examined the patient and reviewed pertinent history, examination findings, laboratory and plan of management. I have reviewed the note and agree with the documented findings with the few sneha tional points. In brief, patient is admitted for acute on chronic hypoxic respiratory failure secondary to COPD exacerbation. Patient on 4 L of home oxygen with history of obstructive sleep apnea on BiPAP, former smoker. Denies history of coronary artery disease, CHF, arrhythmia. BNP normal. Patient baseline bicarb is elevated therefore chronic retainer. Continue treatment as mentioned above. Walking pulse oximetry was done and patient oxygen count went up along with objective dyspnea and cough on walking few steps. Other comorbidities as mentioned above including hypertension, GERD, BPH and morbid obesity Plan possible discharge tomorrow. I have discussed my assessment with AKBAR Clark and orders have been reviewed. Charges/Coding Visit Charges Inpatient E&M: 29166 Subs Hosp L2
[2021-02-16] MEDS: MELATONIN 3 MG TABLET PO (21:35)
--- NOTE | 2021-02-16 22:45 | CPS ---
pt complaining of not being able to cough anything up and feeling like he needs to. PEP given to help
[2021-02-17] VITALS (10 sets, daily range): BP systolic 112–126; BP diastolic 62–68; PULSE 77–95; RESP 15–18; TEMP 36.7–37; O2SAT 86–96
[2021-02-17] MEDS: 0.9% Saline Lock 10 ML Syringe IV (05:31)
[2021-02-17 06:13] LABS: Absolute Lymphocyte Count 0.75 X10^3/uL (0.83-4.51); Absolute Neutrophil Count 12.4 X10^3/uL (2.0-7.7); Basophil# 0.02 X10^3/uL; Basophil% 0.1 % (0-1); Hematocrit 41.3 % (40-54); Hemoglobin 12.4 g/dL (13.0-16.5); Lymphocyte # 0.75 X10^3/ul (0.83-4.51); Lymphocyte % 5.5 % (19-41); Mean Corpuscular Hgb 28.2 pg (27.0-32.0); Mean Corpuscular Volume 94.1 fL (80-94); Mean Platelet Vol. 9.9 fl (6.2-12.0); Monocyte% 2.9 % (0-10); NRBC Flagged by Analyzer 0 % (0-5); Neutrophil # 12.37 X10^3/uL (2.7-7.7); Neutrophil % 91.1 % (47-70); Platelet Count 289 K/mm3 (150-450); RBC Distribution Width CV 13.2 % (11.6-14.6); RBC Distribution Width SD 45.6 fl (35.1-43.9); Red Blood Count 4.39 M/mm3 (4.6-6.2); White Blood Count 13.6 K/mm3 (4.4-11.0)
[2021-02-17 06:40] LABS: Anion Gap 1 (5-15); BUN 27 mg/dL (7-18); BUN/Creat Ratio 39.3 RATIO (10-20); Chloride 92 mmol/L (98-107); Creatinine, Serum 0.69 mg/dL (0.70-1.30); EST Glomerular Filtration Rate 121 mL/min (>60); Est Glom Filt Rate - Afr Amer 147 mL/min (>60); Estimated Creatinine Clearance 59.79 ml/min; Glucose 157 mg/dL (74-106); Potassium 4.3 mmol/L (3.5-5.1); Sodium Level 135 mmol/L (136-145)
[2021-02-17] MEDS: Ipratropium/Albuterol Sulfate 3 ML AMPUL.NEB INHALATION ×2 (07:11→11:06)
[2021-02-17] MEDS: Enoxaparin 40 MG/0.4 ML Syringe SC (08:22)
[2021-02-17] MEDS: Metoprolol Tartrate 25 MG Tablet PO (08:22)
[2021-02-17] MEDS: Aspirin E.C. 81 MG Tablet PO (08:22)
[2021-02-17] MEDS: Finasteride 5 MG Tablet PO (08:23)
[2021-02-17] MEDS: guaiFENesin 1,200 MG Tablet 1200 MG PO (08:23)
[2021-02-17] MEDS: Tamsulosin HCl 0.4 MG Capsule PO (08:23)
[2021-02-17] MEDS: Pantoprazole Sodium 40 MG Tablet PO (08:23)
[2021-02-17] MEDS: Furosemide 40 MG Tablet PO (08:23)
--- NOTE | 2021-02-17 10:40 | PCM.DC ---
Discharge Instructions Diet Discharge Diet: No restrictions Activity Discharge Activity: Return to Normal Activity Weight Bearing Status: Weight bearing as tolerated Dressing / Incision Call your doctor if you observe: Fever of 101 or Higher, Numbness or Tingling, Shortness of breath, Dizziness, Chest pain, Increased palpitations (irregular heartbeat) and Calf discomfort Follow Up Care Please Follow Up With: Primary care provider Test Results: Test results from this visit will be discussed in further detail at your follow-up appointment, if applicable. Discharge Plan Admission Admit Date/Time: 02/14/21 19:19 Primary Reason for Your Visit: Shortness of breath Attending Provider: Ricky Meyers Primary Care Provider: Earle Espinoza Discharge Orders/Prescriptions Prescriptions: New prednisone 10 mg tablet See Taper mg PO DAILY Qty: 30 RF: 0 Continued Calcium Magnesium 500 mg calcium -250 mg tablet 1 tab PO DAILY RF: 0 garlic Tablet 600 mg PO DAILY RF: 0 ascorbic acid (vitamin C) 500 mg tablet 1,000 mg PO DAILY RF: 0 zinc 50 mg tablet 100 mg PO DAILY RF: 0 cholecalciferol (vitamin D3) 25 mcg (1,000 unit) capsule 100 mcg PO DAILY RF: 0 albuterol sulfate 5 mg/mL solution for nebulization 5 mg INHALATION Q6H PRN (Reason: sob) RF: 0 albuterol sulfate 90 mcg/actuation HFA aerosol inhaler 2 puff INHALATION Q6H PRN (Reason: shortness of breath or wheezing) Qty: 18 RF: 3 aspirin [Adult Low Dose Aspirin] 81 mg tablet,delayed release (DR/EC) 81 mg PO DAILY RF: 0 budesonide-formoterol 1 INHALER inhaler 2 puff INHALATION BID RF: 0 tamsulosin 0.4 mg capsule 0.4 mg PO DAILY RF: 0 finasteride 5 MG tablet 5 mg PO DAILY RF: 0 ferrous sulfate 325 MG tablet 325 mg PO DAILY RF: 0 metoprolol tartrate 25 MG tablet 25 mg PO BID RF: 0 tiotropium bromide 2.5 mcg/actuation mist 2 puff INHALATION DAILY Qty: 4 RF: 6 lansoprazole 30 mg capsule,delayed release(DR/EC) 30 mg PO BID Qty: 28 RF: 0 furosemide [Lasix] 20 mg tablet 40 mg PO QDAY Qty: 180 RF: 3 Referrals / Follow Up: Earle Espinoza MD [Primary Care Provider] - Within 2 Weeks Disposition Disposition (needs filled in before D/C Order can be placed): Home, Self Care
--- NOTE | 2021-02-17 10:51 | CASEMGMT ---
Addendum entered by Alice Herrera 02/17/21 11:28: Pt updated on all, voices understanding. Pt declines need for any further resources. Pt aware to call [facility] if he does not hear from them, voices understanding. Carmella AUGUSTE CM Original Note: Pt is normally on 4L nc at home and was tested on 4L at this time. Pt qualifies for his 4L at rest and will need 6L nc with ambulation. New order faxed to [facility] and call to [facility] to notify of need for 6L with ambulation and pt will be discharging today, voices understanding. Per therapy notes, no therapy recommended for pt. CM to follow for any further discharge planning/needs. Carmella AUGUSTE CM
--- NOTE | 2021-02-17 11:24 | DS.PCM_ITS ---
Documented by User: Earle WEBBER 02/17/21 11:30 Providers Date of Admission: 02/14/21 Primary Care Physician: Dr. Earle Espinoza MD Reason For Visit: COPD EXACERBATION Diagnosis Discharge Diagnosis (1) Acute hypoxemic respiratory failure: Status: Acute Code(s): J96.01 - Acute respiratory failure with hypoxia (2) Acute exacerbation of chronic obstructive pulmonary disease: Status: Chronic Code(s): J44.1 - Chronic obstructive pulmonary disease with (acute) exacerbation Medications at Discharge Home Medications budesonide-formoterol 2 puff INHALATION BID 02/22/15 finasteride 5 mg PO DAILY 05/05/20 albuterol sulfate 5 mg/mL(0.5 %) solution for nebulization 5 mg INHALATION Q6H PRN 07/04/20 ascorbic acid (vitamin C) 500 mg tablet 1,000 mg PO DAILY tab 07/04/20 calcium carb-Ca gluc 500 mg calcium-magnesium ox-Mg gluc 250 mg tablet 1 tab PO DAILY tab 07/04/20 cholecalciferol (vitamin D3) 25 mcg (1,000 unit) capsule 100 mcg PO DAILY cap 07/04/20 garlic 600 mg PO DAILY tab 07/04/20 tamsulosin 0.4 mg capsule 0.4 mg PO DAILY cap 07/04/20 zinc 50 mg tablet 100 mg PO DAILY tab 07/04/20 albuterol sulfate 90 mcg/actuation aerosol inhaler 2 puff INHALATION Q6H PRN #18 g 09/19/20 ferrous sulfate 325 mg PO DAILY 10/09/20 metoprolol tartrate 25 mg PO BID 10/09/20 tiotropium bromide 2.5 mcg/actuation mist for inhalation 2 puff INHALATION DAILY #4 gm 10/16/20 aspirin 81 mg tablet,delayed release 81 mg PO DAILY 10/24/20 lansoprazole 30 mg capsule,delayed release 30 mg PO BID #28 cap 12/02/20 prednisone See Taper PO DAILY #30 tab 02/16/21 furosemide 20 mg tablet 40 mg PO QDAY #180 tab 02/17/21 Hospital Course Summary of Care Provided Minutes Spent on Discharge: 35 Hospital Course: Disposition: Patient to be discharged home, no additional home therapies or additional home health care needs identified. 1) acute hypoxemic respiratory failure secondary to acute on chronic exacerbation of COPD. Patient to be discharged home with increased oxygen prescription to 6 L, as patient dropped below 89% on regular home oxygen prescription of 4 L. Home medication list includes albuterol as needed, Symbicort and TH opium. Azithromycin not continued on discharge as sputum is clear and patient is without any other infectious symptoms. Plan; continue home COPD regimen, oxygen prescription increased to 6 L, prednisone taper initiated on discharge. 2) HTN Stable, continue metoprolol and Lasix. 3)GERD Continue PPI 4) BPH Continue finasteride and Flomax Patient seen by Earle Barnard PA-C, under the supervision of Dr. Meyers. Physical Exam Narrative Patient is a 71-year-old male comfortably resting in bed, alert and oriented x3. Patient reports resolution of shortness of breath from admission. denies chest pain, shortness of breath, palpitations, hemoptysis, sputum production, fever, chills, N/V/D. Const alert, oriented x3 and no apparent distress HEENT normocephalic, head/scalp atraumatic and hearing grossly normal bilaterally Eyes EOMs intact bilaterally and conjunctivae normal Neck no lymphadenopathy, supple and no JVD Resp normal respiratory effort, no retractions and no use of accessory muscles Auscultation: diminished lung sounds Cardio regular rate, regular rhythm, no murmurs and no JVD GI normal to inspection, nondistended, normoactive bowel sounds, soft to palpation and non-tender Extremity normal to inspection, full ROM and no clubbing, cyanosis or edema Skin no rashes or lesions noted, no wounds and skin turgor normal Neuro CN's II-XII intact bilaterally Psych affect normal Medical Records Data Medical Nutrition Assessment Dietitian: Nutrition Therapy Diagnosis Start: 02/15/21 15:09 Freq: Status: Active Protocol: Document 02/15/21 15:21 BP (Rec: 02/15/21 15:21 BP [id number]) Nutrition Malnutrition Evidence of Malnutrition Exists No Intake Problem Decreased Nutrient Needs (specify) Etiology sodium related to heart failure Signs/Symptoms as evidenced by BLE non- pitting edema. Status Active Problem Clinical Problem Obese, Class 3 Etiology related to excessive energy intake and predicted physical inactivity Signs/Symptoms as evidenced by pt report eating all of the time, eating throughout the day vs set meal times, and BMI 45.3. Status Active Problem Recommendation Dietitian Recommendations/Changes Will provide Cardiac diet with sodium restriction related to pt CHF and edema. Rec fluid restriction as indicated. Weight / BMI Weight Weight: 272 lb 0.807 oz Body Mass Index (BMI) 45.2 ABG / Lab / Microbiology Data Result Diagrams: 02/17/21 05:05 02/17/21 05:05 Laboratory: Laboratory Results - last 24 hr 02/17/21 05:05: WBC 13.6 H, RBC 4.39 L, Hgb 12.4 L, Hct 41.3, MCV 94.1 H, MCH 28.2, MCHC 30.0 L, RDW Std Deviation 45.6 H, RDW Coeff of Earle 13.2, Plt Count 289, MPV 9.9, Immature Gran % (Auto) 0.400, Neut % (Auto) 91.1 H, Lymph % (Auto) 5.5 L, [place]field % (Auto) 2.9, Eos % (Auto) 0.0, Baso % (Auto) 0.1, Absolute Neuts (auto) 12.4 H, Absolute Lymphs (auto) 0.75 L, Nucleated RBC % 0 02/17/21 05:05: Sodium 135 L, Potassium 4.3, Chloride 92 L, Carbon Dioxide 42.0 H, Anion Gap 1 L, BUN 27 H, Creatinine 0.69 L, Estim Creat Clear Calc 59.79, Est GFR (MDRD) Af Amer 147, Est GFR (MDRD) Non-Af 121, BUN/Creatinine Ratio 39.3 H, Glucose 157 H, Calcium 9.0 Microbiology: Microbiology 02/14/21 18:46 Blood Culture (Wb) #2 - Anticubital Left Blood Culture - Preliminary No growth in 48 hours. 02/14/21 17:35 Blood Culture (Wb) - Anticubital Left Blood Culture - Preliminary No growth in 48 hours. 02/14/21 18:00 Mucosa - Nose SARS-CoV-2 Antigen (Rapid) - Final D/C Instructions Discharge Diet: No restrictions Weight Bearing Status: Weight bearing as tolerated Call your doctor if you observe: Fever of 101 or Higher, Numbness or Tingling, Shortness of breath, Dizziness, Chest pain, Increased palpitations (irregular heartbeat) and Calf discomfort Please Follow Up With: Primary care provider When: Within the next two weeks. Meaningful Use Info Meaningful Use Diagnoses (Choose all that apply): None applicable Discharge Plan Admission Admit Date/Time: 02/14/21 19:19 Primary Reason for Your Visit: Shortness of breath Attending Provider: Ricky Meyers Primary Care Provider: Earle Espinoza Discharge Orders/Prescriptions Prescriptions: New prednisone 10 mg tablet See Taper mg PO DAILY Qty: 30 RF: 0 Continued Calcium Magnesium 500 mg calcium -250 mg tablet 1 tab PO DAILY RF: 0 garlic Tablet 600 mg PO DAILY RF: 0 ascorbic acid (vitamin C) 500 mg tablet 1,000 mg PO DAILY RF: 0 zinc 50 mg tablet 100 mg PO DAILY RF: 0 cholecalciferol (vitamin D3) 25 mcg (1,000 unit) capsule 100 mcg PO DAILY RF: 0 albuterol sulfate 5 mg/mL solution for nebulization 5 mg INHALATION Q6H PRN (Reason: sob) RF: 0 albuterol sulfate 90 mcg/actuation HFA aerosol inhaler 2 puff INHALATION Q6H PRN (Reason: shortness of breath or wheezing) Qty: 18 RF: 3 aspirin [Adult Low Dose Aspirin] 81 mg tablet,delayed release (DR/EC) 81 mg PO DAILY RF: 0 budesonide-formoterol 1 INHALER inhaler 2 puff INHALATION BID RF: 0 tamsulosin 0.4 mg capsule 0.4 mg PO DAILY RF: 0 finasteride 5 MG tablet 5 mg PO DAILY RF: 0 ferrous sulfate 325 MG tablet 325 mg PO DAILY RF: 0 metoprolol tartrate 25 MG tablet 25 mg PO BID RF: 0 tiotropium bromide 2.5 mcg/actuation mist 2 puff INHALATION DAILY Qty: 4 RF: 6 lansoprazole 30 mg capsule,delayed release(DR/EC) 30 mg PO BID Qty: 28 RF: 0 furosemide [Lasix] 20 mg tablet 40 mg PO QDAY Qty: 180 RF: 3 Referrals / Follow Up: Earle Espinoza MD [Primary Care Provider] - 02/24/21 3:00 pm (apt is with CHURCH WARDEN Alpa Andujar. ) Disposition Disposition (needs filled in before D/C Order can be placed): Home, Self Care Documented by User: Dr. Ricky Meyers MD 02/17/21 12:05 Providers Date of Admission: 02/14/21 Reason For Visit: COPD EXACERBATION Medications at Discharge Home Medications budesonide-formoterol 2 puff INHALATION BID 02/22/15 finasteride 5 mg PO DAILY 05/05/20 albuterol sulfate 5 mg/mL(0.5 %) solution for nebulization 5 mg INHALATION Q6H PRN 07/04/20 ascorbic acid (vitamin C) 500 mg tablet 1,000 mg PO DAILY tab 07/04/20 calcium carb-Ca gluc 500 mg calcium-magnesium ox-Mg gluc 250 mg tablet 1 tab PO DAILY tab 07/04/20 cholecalciferol (vitamin D3) 25 mcg (1,000 unit) capsule 100 mcg PO DAILY cap 07/04/20 garlic 600 mg PO DAILY tab 07/04/20 tamsulosin 0.4 mg capsule 0.4 mg PO DAILY cap 07/04/20 zinc 50 mg tablet 100 mg PO DAILY tab 07/04/20 albuterol sulfate 90 mcg/actuation aerosol inhaler 2 puff INHALATION Q6H PRN #18 g 09/19/20 ferrous sulfate 325 mg PO DAILY 10/09/20 metoprolol tartrate 25 mg PO BID 10/09/20 tiotropium bromide 2.5 mcg/actuation mist for inhalation 2 puff INHALATION DAILY #4 gm 10/16/20 aspirin 81 mg tablet,delayed release 81 mg PO DAILY 10/24/20 lansoprazole 30 mg capsule,delayed release 30 mg PO BID #28 cap 12/02/20 prednisone See Taper PO DAILY #30 tab 02/16/21 furosemide 20 mg tablet 40 mg PO QDAY #180 tab 02/17/21 Hospital Course Operations None Summary of Care Provided Hospital Course: This patient was seen in conjunction with Earle Barnard PA-C. I have independently interviewed and examined the patient and reviewed pertinent historical, laboratory, and other data. Please refer to Earle Barnard PA-C's note for details of this patient's presentation, findings, and recommendations. I have reviewed Earle Barnard PA-C's note and concur with documented findings. In brief, patient is a 71-year-old gentleman with multiple comorbidities admitted with progressive shortness of breath managed as a case of acute on chronic hypoxic respiratory failure secondary to COPD. Hospital course: As documented above ABG / Lab / Microbiology Data Result Diagrams: 02/17/21 05:05 02/17/21 05:05 Discharge Plan Admission Admit Date/Time: 02/14/21 19:19 Primary Reason for Your Visit: Shortness of breath Attending Provider: Ricky Meyers Primary Care Provider: Earle Espinoza Discharge Orders/Prescriptions Prescriptions: New prednisone 10 mg tablet See Taper mg PO DAILY Qty: 30 RF: 0 Continued Calcium Magnesium 500 mg calcium -250 mg tablet 1 tab PO DAILY RF: 0 garlic Tablet 600 mg PO DAILY RF: 0 ascorbic acid (vitamin C) 500 mg tablet 1,000 mg PO DAILY RF: 0 zinc 50 mg tablet 100 mg PO DAILY RF: 0 cholecalciferol (vitamin D3) 25 mcg (1,000 unit) capsule 100 mcg PO DAILY RF: 0 albuterol sulfate 5 mg/mL solution for nebulization 5 mg INHALATION Q6H PRN (Reason: sob) RF: 0 albuterol sulfate 90 mcg/actuation HFA aerosol inhaler 2 puff INHALATION Q6H PRN (Reason: shortness of breath or wheezing) Qty: 18 RF: 3 aspirin [Adult Low Dose Aspirin] 81 mg tablet,delayed release (DR/EC) 81 mg PO DAILY RF: 0 budesonide-formoterol 1 INHALER inhaler 2 puff INHALATION BID RF: 0 tamsulosin 0.4 mg capsule 0.4 mg PO DAILY RF: 0 finasteride 5 MG tablet 5 mg PO DAILY RF: 0 ferrous sulfate 325 MG tablet 325 mg PO DAILY RF: 0 metoprolol tartrate 25 MG tablet 25 mg PO BID RF: 0 tiotropium bromide 2.5 mcg/actuation mist 2 puff INHALATION DAILY Qty: 4 RF: 6 lansoprazole 30 mg capsule,delayed release(DR/EC) 30 mg PO BID Qty: 28 RF: 0 furosemide [Lasix] 20 mg tablet 40 mg PO QDAY Qty: 180 RF: 3 Referrals / Follow Up: aErle Espinoza MD [Primary Care Provider] - 02/24/21 3:00 pm (apt is with [facility]UR[facility] WARDEN Alpa Andujar. ) Disposition Disposition (needs filled in before D/C Order can be placed): Home, Self Care Charges/Coding Visit Charges Inpatient E&M: 10259 Disch Hosp Hospital Course Operations None
--- NOTE | 2021-02-17 12:49 | CASEMGMT ---
Pt qualifies for palliative c/s per [facility] palliative screening tool and Katerina WEBBER is agreeable. Call to palliative to notify of referral and pt discharge, voice understanding. Carmella AUGUSTE CM
--- NOTE | 2021-02-18 14:45 | CASEMGMT ---
KALYANI PAYNE Discharge F/U Phone Call LACGiovanna: 13 Strata: 3 Discharge date: 02/17/21 Call date: 02/18/21 Call time: [phone] Admission dx: COPD exac Pt states has been 'doing alright' since discharge. Pt states no questions regarding discharge instructions/medications. Pt states plans to f/u with Dr. Espinoza in the next several weeks. Pt states no suggestions for [facility] and states 'It's the best place this side of the [place]. I was really happy with the staff, the care, and the hospital.' Pt voices no further questions/concerns/needs. SStaten KALYANI PAYNE
== END 2021-02-17 12:11 | disposition home or self-care (01) | DRG 190 ==
LOC: ED 17:10 → PCU 21:25
PROVIDERS: Physician Assistant; Admitting Provider Hospitalist; Emergency Provider Emergency Medicine; PCP Family Medicine; Visit Provider Internal Medicine
DX: J44.1 Chronic obstructive pulmonary disease with (acute) exacerbation (principal); J96.21 Acute and chronic respiratory failure with hypoxia; Z68.42 Body mass index [BMI] 45.0-49.9, adult; I50.32 Chronic diastolic (congestive) heart failure; I11.0 Hypertensive heart disease with heart failure; K21.9 Gastro-esophageal reflux disease without esophagitis; N40.0 Benign prostatic hyperplasia without lower urinary tract symptoms; G47.33 Obstructive sleep apnea (adult) (pediatric); E66.01 Morbid (severe) obesity due to excess calories; Z79.82 Long term (current) use of aspirin; Z99.81 Dependence on supplemental oxygen; Z79.899 Other long term (current) drug therapy; Z86.16 Personal history of COVID-19; Z87.891 Personal history of nicotine dependence
CPT/HCPCS: 36415; 71045; 80048; 80076; 83605; 83880; 84484; 85025; 85610; 85730; 87040; 87426; 93005; 94002; 94003; 94640; 94667; 94668; 97110; 97162; 97166; 97535; 99251; 99285; J7030; A4216; G0463

== ENCOUNTER 2021-07-15 15:43 | Inpatient (IN) | payer MEDICARE, SELFPAY ==
[2021-07-15] VITALS (13 sets, daily range): BP systolic 108–156; BP diastolic 61–104; PULSE 72–99; RESP 18–29; TEMP 36.1–36.9; O2SAT 86–100; BMI 48.2; BMI 47.7
--- NOTE | 2021-07-15 16:02 | EKG12_ITS ---
Test Reason : SOB Blood Pressure : / mmHG Vent. Rate : 073 BPM Atrial Rate : 073 BPM P-R Int : 196 ms QRS Dur : 094 ms QT Int : 384 ms P-R-T Axes : 040 023 043 degrees QTc Int : 423 ms Normal sinus rhythm Low voltage QRS Borderline ECG Confirmed by TORI MENDEZ, GAIL ([id number]), acquisitions editor [address] ([id number]) on 07/21/2021 9:12:27 AM Referred By: Confirmed By:GAIL VALLE MD
--- NOTE | 2021-07-15 16:12 | ED.VIS.DYS ---
HPI History of Present Illness Chief Complaint: Shortness of Breath Informant: patient Onset/Context/Timing Onset: Today Context: gradual Timing: Continuous Current Severity: Moderate Maximum Severity: Moderate Worsened by: Nothing Relieved by: Oxygen Associated Symptoms Chest Pain: Positive for None Narrative Narrative: 71-year-old male history of anemia, A. fib COPD on 4 L of oxygen at home. Today became increasingly short of breath. On his 4 L he was 45% at home and on 6 L he went to 88%. He thinks his COPD flare. He denies any chest pain or hemoptysis. No fever or chills. No new cough. No new leg swelling. No hemoptysis. No fever. He is unvaccinated. PE Risk Factors: Negative for Cancer, OCP + Smoking + > 35, Prior DVT or PE, Recent immobilization, Recent surgery and Recent travel Prior similar symptoms: Yes Recent Illness/Hospitalization: No PFSH PFSH Medical History Anemia Asthma Atrial fibrillation Chronic respiratory failure Congestive heart failure (CHF) COPD (chronic obstructive pulmonary disease) Diastolic CHF, chronic Edema Emphysema, unspecified Former smoker Injury of head and neck Loose, teeth Nonrheumatic aortic (valve) insufficiency Obesity (BMI 30-39.9) On home oxygen therapy Positive occult stool blood test Restless legs Secondary pulmonary hypertension Secondary pulmonary hypertension Sleep apnea Stage 4 very severe COPD by GOLD classification Stage 4 very severe COPD by GOLD classification Wears glasses Home Medications budesonide-formoterol 2 puff INHALATION BID 02/22/15 [History Last Taken 11/26/20 05:15] finasteride 5 mg PO DAILY 05/05/20 [History Last Taken Unknown] albuterol sulfate 5 mg/mL(0.5 %) solution for nebulization 5 mg INHALATION Q6H PRN 07/04/20 [History Last Taken 11/26/20 05:15] ascorbic acid (vitamin C) 500 mg tablet 1,000 mg PO DAILY tab 07/04/20 [History Last Taken Unknown] calcium carb-Ca gluc 500 mg calcium-magnesium ox-Mg gluc 250 mg tablet 1 tab PO DAILY tab 07/04/20 [History Last Taken Unknown] cholecalciferol (vitamin D3) 25 mcg (1,000 unit) capsule 100 mcg PO DAILY cap 07/04/20 [History Last Taken Unknown] garlic 600 mg PO DAILY tab 07/04/20 [History Last Taken Unknown] tamsulosin 0.4 mg capsule 0.4 mg PO DAILY cap 07/04/20 [History Last Taken Unknown] zinc 50 mg tablet 100 mg PO DAILY tab 07/04/20 [History Last Taken Unknown] ferrous sulfate 325 mg PO DAILY 10/09/20 [History Last Taken Unknown] metoprolol tartrate 25 mg PO BID 10/09/20 [History Last Taken 11/26/20 05:15] aspirin 81 mg tablet,delayed release 81 mg PO DAILY 10/24/20 [History Last Taken Unknown] lansoprazole 30 mg capsule,delayed release 30 mg PO BID #28 cap 12/02/20 [Rx Last Taken Unknown] albuterol sulfate 90 mcg/actuation aerosol inhaler 2 puff INHALATION Q6H PRN #18 g 04/14/21 [Rx Last Taken Unknown] tiotropium bromide 2.5 mcg/actuation mist for inhalation 2 puff INHALATION DAILY #4 gm 05/01/21 [Rx Last Taken Unknown] prednisone 10 mg tablet 10 mg PO QDAY #30 tab 05/05/21 [Rx Last Taken Unknown] furosemide 20 mg tablet 40 mg PO QDAY #180 tab 05/26/21 [Rx Last Taken Unknown] prednisone 40 mg PO DAILY 10 Days #20 tab 07/15/21 [Rx Last Taken Unknown] Allergy/AdvReac Type Severity Reaction Status Date / Time No Known Allergies Allergy Verified 07/15/21 15:46 Family History Mother Cancer stomach Father Heart disease Brother Cancer Surgical History History of surgery of head Hx of cataract surgery Hx of colonoscopy Social History Smoking Status: Former smoker pack-years: 60 Tobacco: How many years used: 30 alcohol intake: never substance use type: does not use caffeine: Yes Type: coffee Number of servings: 4 what type of physical activity do you participate in: none frequency: does not exercise ROS ROS ED ROS Narrative Shortness of breath. No new cough. No new sputum. No fever. No chest pain. Review of Systems ROS Unobtainable: Denies due to encephalopathy Constitutional Constitutional ED: Denies chills or fever(s) Eyes Eyes: Denies change in vision ENT ENT ED: Denies ear pain Cardiovascular Cardiovascular: Denies chest pain Respiratory/Chest Respiratory/Chest: Reports dyspnea; Denies cough Gastrointestinal Gastrointestinal: Denies abdominal pain, constipation, diarrhea, melena, nausea or vomiting Genitourinary Genitourinary ED: Denies dysuria Musculoskeletal Musculoskeletal: Denies myalgias Integumentary Denies rash Neurologic Neurologic: Denies headache(s) Psychiatric Psychiatric: Denies depression Endocrine Endocrinology: Denies polyuria Hematologic/Lymphatic Hematologic/Lymphatic: Denies easy bruising Allergic/Immunologic Allergic/Immunologic ED: Denies urticaria EXAM Physical Exam Narrative Exam Narrative: 68-year-old male no acute distress. Vital signs stable. On 4 L 96%. H EENT exam unremarkable. Neck nontender no lymphadenopathy. No JVD. Clear to auscultation bilaterally. No rales, rhonchi heart regular rhythm rate about 70 no murmur. Abdomen soft nontender normal bowel sounds no peritoneal signs. Moving all 4 extremities with 1+ pitting edema. Patient is states that his baseline. Calves are nontender. Statin neurologically is awake alert with no focal motor deficits. Const Vital Signs: 07/15/21 15:44 07/15/21 16:08 07/15/21 16:09 Temperature 96.9 F L Temperature Source Temporal Pulse Rate 78 72 Respiratory Rate 25 H 18 Respiratory Effort Respiratory Depth Respiratory Pattern Blood Pressure 150/104 H 128/83 H Blood Pressure Mean 119 98 Pulse Ox 90 96 96 Oxygen Delivery Method Nasal Cannula Nasal Cannula Nasal Cannula Oxygen Flow Rate (L/min) 6 4 4 07/15/21 16:10 07/15/21 16:16 07/15/21 16:32 Temperature Temperature Source Pulse Rate 96 80 Respiratory Rate 24 H 18 Respiratory Effort Normal Respiratory Depth Normal Respiratory Pattern Normal Tachypnea Blood Pressure 122/65 H Blood Pressure Mean 84 Pulse Ox 96 Oxygen Delivery Method Nasal Cannula Nasal Cannula Oxygen Flow Rate (L/min) 4 4 07/15/21 18:07 07/15/21 19:33 Temperature Temperature Source Pulse Rate 80 84 Respiratory Rate 20 H 25 H Respiratory Effort Respiratory Depth Respiratory Pattern Blood Pressure 128/69 H 108/94 H Blood Pressure Mean 88 98 Pulse Ox 96 93 Oxygen Delivery Method Nasal Cannula Nasal Cannula Oxygen Flow Rate (L/min) 4 4 Positive well nourished, well developed and obese; Negative for cachectic, contractures or unkempt General Appearance ED: well developed and NAD; Negative for unkempt, cachectic, contractures or pallor Nutritional Appearance: obese; Negative for cachectic HEENT Reports moist mucous membranes atraumatic; Negative for trauma or tenderness Eyes PERRL and EOMs intact bilaterally Neck no lymphadenopathy, supple, no meningeal signs and no JVD General: Negative for tenderness Resp normal respiratory effort Auscultation: Negative for rales, rhonchi or wheezes Cardio regular rate, regular rhythm, S1 normal heart sound, S2 normal heart sound and no murmurs GI non-tender, non-distended and no masses Auscultation: normoactive bowel sounds Palpation: soft; Negative for tender, guarding or rebound tenderness present Back/Spine no CVA tenderness and normal to inspection General Back: Negative for CVA tenderness Extremity normal to inspection General Extremety ED: Yes edema; Negative for tenderness General Extremity: edema Neuro oriented x3 Sensorium / Orientation: alert, oriented to person, oriented to place, oriented to time and orientation impaired; Negative for confused, lethargic or stuporous Motor Exam: strength 5/5 throughout Psych mental status grossly normal Appearance: Negative for unkempt Attitude: No agitated Mood & Affect: Negative for depressed, anxious or tearful Thought Process: normal thought process Skin no wounds General Skin Exam: Negative for jaundice or pallor Lesions: no lesions Rashes: no rashes MDM MDM MDM Narrative Medical decision making narrative: 71-year-old male with shortness of breath and history of COPD. I think this is a COPD flare. He has had a fever, change in his cough or sputum nor any chest pain. He will undergo a work-up for shortness of breath. He has no current risk factors for DVT or PE or prior history. Patient be treated with Solu-Medrol IV and DuoNeb and albuterol aerosols. Repeat exam patient is doing well. On his normal 4 L he is 95%. I discussed with both he and his and they are comfortable with him being discharged home. He will be on 40 mg of prednisone a day for 10 days. He has home nebulizer treatments and home oxygen. He will return if he feels worse or follow-up with his doctor if not improving. I will send a Covid test but I do not think clinically this is Covid. This came on abruptly today with significant wheezing. Lab Data Attestation: I reviewed the patient's lab results. Lab results narrative: CBC shows a white count 8. Hemoglobin 12.7. Platelets 227. Chemistries gap is 0. BUN of 22 creatinine 0.6. Glucose 122. Troponin normal at 12. Chest x-ray shows chronic changes consistent with pulmonary fibrosis and chronic lung changes unchanged from prior. Labs: Laboratory Results - last 24 hr 07/15/21 07/15/21 16:20 16:20 WBC 8.0 RBC 4.53 L Hgb 12.7 L Hct 43.5 MCV 96.0 H MCH 28.0 MCHC 29.2 L RDW Std Deviation 47.8 H RDW Coeff of Earle 13.4 Plt Count 227 MPV 9.5 Immature Gran % (Auto) 0.400 Neut % (Auto) 71.1 H Lymph % (Auto) 16.0 L [place] % (Auto) 8.3 Eos % (Auto) 3.3 Baso % (Auto) 0.9 Absolute Neuts (auto) 5.7 Absolute Lymphs (auto) 1.27 Nucleated RBC % 0 Sodium 139 Potassium 4.3 Chloride 97 L Carbon Dioxide 42.0 H Anion Gap 0 L BUN 22 H Creatinine 0.64 L Estim Creat Clear Calc 59.79 Est GFR (MDRD) Af Amer 160 Est GFR (MDRD) Non-Af 132 BUN/Creatinine Ratio 34.6 H Glucose 122 H Calcium 8.5 Troponin I High Sens 12 Radiography Chest X-Ray - ED: 1 View, Read by ED Physician, Heart, Lungs, Mediastinum, Bony Structures, No Acute Disease and Chronic Changes Diagnostic Testing: Clinical Impression(s) from Imaging Studies Chest X-Ray 07/15/21 17:25 IMPRESSION: 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 Electronically Signed: Russell Thomas MD at 18:24 EST , Service support , Chest x-ray, portable, single view interpreted by self and radiologist shows chronic changes but no acute process and unchanged from prior. Changes consistent with COPD and pulmonary fibrosis. Rhythm Strip Rhythm Strip: Sinus Rhythm Rate: 73 Ectopy: None EKG Initial EKG: Attestation: I personally reviewed and interpreted this EKG as follows: Interpretation: Sinus Rhythm and No Acute Injury Pattern Comments: Normal sinus rhythm rate of 70 no signs of [place] or ischemia. Discharge Plan Triage Chief Complaint: Shortness of Breath ED Provider: Hany Hernandez Dx/Rx/DC Orders Clinical Impression: COPD exacerbation, Hypoxia, History of atrial fibrillation Instructions: ED COPD Flare Prescriptions: New prednisone 20 mg tablet 40 mg PO DAILY 10 Days Qty: 20 RF: 0 No Action Calcium Magnesium 500 mg calcium -250 mg tablet 1 tab PO DAILY RF: 0 garlic Tablet 600 mg PO DAILY RF: 0 ascorbic acid (vitamin C) 500 mg tablet 1,000 mg PO DAILY RF: 0 zinc 50 mg tablet 100 mg PO DAILY RF: 0 cholecalciferol (vitamin D3) 25 mcg (1,000 unit) capsule 100 mcg PO DAILY RF: 0 albuterol sulfate 5 mg/mL solution for nebulization 5 mg INHALATION Q6H PRN (Reason: sob) RF: 0 aspirin [Adult Low Dose Aspirin] 81 mg tablet,delayed release (DR/EC) 81 mg PO DAILY RF: 0 albuterol sulfate 90 mcg/actuation HFA aerosol inhaler 2 puff INHALATION Q6H PRN (Reason: shortness of breath or wheezing) Qty: 18 RF: 3 budesonide-formoterol 1 INHALER inhaler 2 puff INHALATION BID RF: 0 tamsulosin 0.4 mg capsule 0.4 mg PO DAILY RF: 0 finasteride 5 MG tablet 5 mg PO DAILY RF: 0 ferrous sulfate 325 MG tablet 325 mg PO DAILY RF: 0 metoprolol tartrate 25 MG tablet 25 mg PO BID RF: 0 lansoprazole 30 mg capsule,delayed release(DR/EC) 30 mg PO BID Qty: 28 RF: 0 tiotropium bromide 2.5 mcg/actuation mist 2 puff INHALATION DAILY Qty: 4 RF: 6 prednisone 10 mg tablet 10 mg PO QDAY Qty: 30 RF: 0 furosemide [Lasix] 20 mg tablet 40 mg PO QDAY Qty: 180 RF: 3 Primary Care Provider: Earle Espinoza Referrals: Earle Espinoza MD [Primary Care Provider] - 3-5 Days Activity Restrictions/Additional Instructions: Use your home oxygen on your normal 4 L. If you need to turn it up you should be reevaluated. If you are feeling worse return to the emergency department. Follow-up with your doctor in 3 to 5 days to ensure you are improving. Use your home aerosol treatments as needed. Prednisone 40 mg a day for the next 10 days. Return emergency department if you are feeling worse. Disposition Disposition: Home, Self Care
[2021-07-15] MEDS: Albuterol 2.5 MG/3 ML VIAL.NEB. INHALATION ×2 (16:16)
[2021-07-15] MEDS: Ipratropium/Albuterol Sulfate 3 ML AMPUL.NEB INHALATION ×2 (16:16→20:50)
[2021-07-15 16:28] LABS: Absolute Lymphocyte Count 1.27 X10^3/uL (0.83-4.51); Absolute Neutrophil Count 5.7 X10^3/uL (2.0-7.7); Basophil# 0.07 X10^3/uL; Basophil% 0.9 % (0-1); Eosinophil# 0.26 X10^3/uL; Eosinophils% 3.3 % (0-5); Hematocrit 43.5 % (40-54); Hemoglobin 12.7 g/dL (13.0-16.5); Lymphocyte # 1.27 X10^3/ul (0.83-4.51); Mean Corp Hgb Conc 29.2 g/dL (32-36); Mean Platelet Vol. 9.5 fl (6.2-12.0); Monocyte# 0.66 X10^3/uL; Monocyte% 8.3 % (0-10); NRBC Flagged by Analyzer 0 % (0-5); Neutrophil # 5.67 X10^3/uL (2.7-7.7); Neutrophil % 71.1 % (47-70); Platelet Count 227 K/mm3 (150-450); RBC Distribution Width CV 13.4 % (11.6-14.6); RBC Distribution Width SD 47.8 fl (35.1-43.9); Red Blood Count 4.53 M/mm3 (4.6-6.2)
[2021-07-15] MEDS: MethylPREDNISolone 125 MG/2 ML Vial IV (16:33)
[2021-07-15 16:52] LABS: Anion Gap 0 (5-15); BUN 22 mg/dL (7-18); BUN/Creat Ratio 34.6 RATIO (10-20); Calcium,Total 8.5 mg/dL (8.5-10.1); Chloride 97 mmol/L (98-107); Creatinine, Serum 0.64 mg/dL (0.70-1.30); EST Glomerular Filtration Rate 132 mL/min (>60); Est Glom Filt Rate - Afr Amer 160 mL/min (>60); Estimated Creatinine Clearance 59.79 ml/min; Glucose 122 mg/dL (74-106); Potassium 4.3 mmol/L (3.5-5.1); Sodium Level 139 mmol/L (136-145); Troponin-I HS 12 pg/mL (3.0-78.0)
--- NOTE | 2021-07-15 17:25 | RAD_ITS ---
STUDY: X-RAY CHEST REASON FOR EXAM: Male, 71 years old. chest pain TECHNIQUE: Single AP portable view of the chest. COMPARISON: February 14, 2021 FINDINGS: Emphysematous cystic changes are present as well as hyperinflation. There are mild to moderate interstitial fibrotic changes of the lungs. No visualized consolidation. There is no demonstrated pleural abnormality. Normal size heart. Normal mediastinum and earlene. Normal visualized pulmonary arteries. There is atherosclerotic tortuosity of the aortic arch and descending thoracic aorta. Stable osseous structures. There is no demonstrated abnormality of the visualized soft tissue structures of the upper abdomen. RAD/Chest 1 View (Portable) IMPRESSION: 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 Electronically Signed: Russell Thomas MD at 18:24 EST , Service support ,
--- NOTE | 2021-07-15 20:43 | HP.PCM.HOS_ITS ---
[facility] - General General Date of Admission: 07/15/21 HPI Narrative FARRAH ANDREWS, is a 71 M with a significant history of COPD 4 L nasal cannula oxygen; obstructive sleep apnea; diastolic heart failure who presents to the emergency department with 2-day history of progressive worsening shortness of breath. Shortness of breath is worse with exertion. He has wheezes that is unchanged. He denies coughing. He denies any fever or chills. Reportedly at home he gets very hypoxic on his 4 L nasal cannula oxygen. At the emergency department reportedly an attempt was made to ambulate patient and patient got severely dyspneic and hypoxic so decision was made for patient to stay at hospital. ON LICENSE OF [facility] Medical History Anemia Asthma Atrial fibrillation Chronic respiratory failure Congestive heart failure (CHF) COPD (chronic obstructive pulmonary disease) CPAP (continuous positive airway pressure) dependence Diastolic CHF, chronic Edema Emphysema, unspecified Former smoker Injury of head and neck Loose, teeth Nonrheumatic aortic (valve) insufficiency Obesity (BMI 30-39.9) On home oxygen therapy Positive occult stool blood test Restless legs Secondary pulmonary hypertension Secondary pulmonary hypertension Sleep apnea Stage 4 very severe COPD by GOLD classification Stage 4 very severe COPD by GOLD classification Wears glasses Home Medications budesonide-formoterol 2 puff INHALATION BID 02/22/15 [History Last Taken 07/15/21] finasteride 5 mg PO DAILY 05/05/20 [History Last Taken 07/14/21] albuterol sulfate 5 mg/mL(0.5 %) solution for nebulization 5 mg INHALATION Q6H PRN 07/04/20 [History Last Taken 07/15/21] ascorbic acid (vitamin C) 500 mg tablet 1,000 mg PO DAILY tab 07/04/20 [History Last Taken 07/15/21] calcium carb-Ca gluc 500 mg calcium-magnesium ox-Mg gluc 250 mg tablet 1 tab PO DAILY tab 07/04/20 [History Last Taken 07/15/21] garlic 600 mg PO DAILY tab 07/04/20 [History Last Taken 07/15/21] tamsulosin 0.4 mg capsule 0.8 mg PO DAILY cap 07/04/20 [History Last Taken 07/14/21] ferrous sulfate 325 mg PO DAILY 10/09/20 [History Last Taken 07/15/21] metoprolol tartrate 25 mg PO BID 10/09/20 [History Last Taken 07/15/21] aspirin 81 mg tablet,delayed release 81 mg PO DAILY 10/24/20 [History Last Taken 07/14/21] albuterol sulfate 90 mcg/actuation aerosol inhaler 2 puff INHALATION Q6H PRN #18 g 04/14/21 [Rx Last Taken 07/15/21] tiotropium bromide 2.5 mcg/actuation mist for inhalation 2 puff INHALATION DAILY #4 gm 05/01/21 [Rx Last Taken 07/15/21] furosemide 20 mg tablet 40 mg PO QDAY #180 tab 05/26/21 [Rx Last Taken 07/14/21] omeprazole 20 mg PO QHS 07/15/21 [History Last Taken 07/14/21] Allergy/AdvReac Type Severity Reaction Status Date / Time No Known Allergies Allergy Verified 07/15/21 21:42 Family History Mother Cancer stomach Father Heart disease Brother Cancer Surgical History History of surgery of head Hx of cataract surgery Hx of colonoscopy Social History Smoking Status: Former smoker pack-years: 60 Tobacco: How many years used: 30 alcohol intake: never substance use type: does not use caffeine: Yes Type: coffee Number of servings: 4 what type of physical activity do you participate in: none frequency: does not exercise ROS ROS Narrative Constitutional: Reports fatigue. Denies fever, chills, anorexia and change in weight Eyes: Denies blurry vision, change in eye color, change in vision, discharge from eye(s), double vision, erythema, eye pain, loss of vision or other HEENT: Denies abnormal hearing, dysphagia, ear pain, epistaxis, headache(s), hearing loss, nasal congestion, nasal discharge, post nasal drip, sinus pressure, sore throat or other Cardiovascular: Denies chest pain or palpitations. Denies dyspnea on exertion, orthopnea and paroxysmal nocturnal dyspnea Respiratory/Chest: Reports shortness of breath. Reports wheezes, unchanged from baseline. Denies cough, excessive phlegm production. Gastrointestinal: Denies abdominal pain, coffee ground emesis, constipation, diarrhea, dyspepsia, hematemesis, hematochezia, loose stools, melena, nausea, vomiting or other Genitourinary: Denies burning urination, difficulty urinating, dysuria, hematuria, nocturia, urinary frequency, urinary hesitancy, urinary incontinence, urinary urgency or other Musculoskeletal: Denies arthralgias, back pain, joint pain, joint stiffness, joint swelling, myalgias, neck pain or other Neurologic: Denies abnormal gait, abnormal speech, confusion, disequilibrium, dizziness, focal weakness, headache(s), numbness, paresthesias, seizure-like activity, seizures, syncope, tingling, tremor(s) or other Psychiatric: Denies anxiety, depression, homicidal ideation, suicidal ideation or other Endocrinology: Denies change in body appearance, cold intolerance, excessive sweating, heat intolerance, polydipsia, polyuria or other Hematologic/Lymphatic: Denies anemia, easy bleeding, easy bruising, lymphadenopathy or other Integumentary: Denies rashes Allergic/Immunologic: Denies rhinitis, hives, eczema, asthma or other Vital Signs Vital Signs Vital Signs: 07/15/21 15:44 07/15/21 16:08 07/15/21 16:09 Temperature 96.9 F L Temperature Source Temporal Pulse Rate 78 72 Respiratory Rate 25 H 18 Respiratory Effort Respiratory Depth Respiratory Pattern Blood Pressure 150/104 H 128/83 H Blood Pressure Mean 119 98 Pulse Ox 90 96 96 Oxygen Delivery Method Nasal Cannula Nasal Cannula Nasal Cannula Oxygen Flow Rate (L/min) 6 4 4 07/15/21 16:10 07/15/21 16:16 07/15/21 16:32 Temperature Temperature Source Pulse Rate 96 80 Respiratory Rate 24 H 18 Respiratory Effort Normal Respiratory Depth Normal Respiratory Pattern Normal Tachypnea Blood Pressure 122/65 H Blood Pressure Mean 84 Pulse Ox 96 Oxygen Delivery Method Nasal Cannula Nasal Cannula Oxygen Flow Rate (L/min) 4 4 07/15/21 18:07 07/15/21 19:33 07/15/21 20:42 Temperature Temperature Source Pulse Rate 80 84 94 Respiratory Rate 20 H 25 H 29 H Respiratory Effort Respiratory Depth Respiratory Pattern Blood Pressure 128/69 H 108/94 H 156/61 H Blood Pressure Mean 88 98 92 Pulse Ox 96 93 91 Oxygen Delivery Method Nasal Cannula Nasal Cannula Nasal Cannula Oxygen Flow Rate (L/min) 4 4 4 Weight Weight: 131.542 kg Body Mass Index (BMI) 48.2 Physical Exam Narrative Physical exam: General: Well-nourished, well-developed. Head: Normocephalic, atraumatic, no tenderness Eyes: PERRLA, EOMI ENT, no trauma, moist mucous membranes, no rhinorrhea Neck: Nontender, full range of motion, no spinal tenderness, deformities, step- off CVS: Regular rate and rhythm. S1-S2 present. No murmur, gallop or rub. Respiratory : clear to auscultation bilaterally, chest wall nontender, no wheezing Abdomen: Soft, nontender, nondistended, normal bowel sounds, no masses : Deferred Back: Nontender, no CVA tenderness, no midline spinal tenderness, deformities, step-offs Extremities: Nontender full range of motion, no trauma Skin: Normal color, no trauma, abrasions Neuro: Alert, oriented, cranial nerves II through XII grossly intact. Psychiatry: Normal mood. Normal affect. Not depressed. Not anxious. Results Lab / Micro Data Result Diagrams: 07/15/21 16:20 07/15/21 16:20 Labs: Laboratory Results - last 24 hr 07/15/21 16:20: WBC 8.0, RBC 4.53 L, Hgb 12.7 L, Hct 43.5, MCV 96.0 H, MCH 28.0, MCHC 29.2 L, RDW Std Deviation 47.8 H, RDW Coeff of Earle 13.4, Plt Count 227, MPV 9.5, Immature Gran % (Auto) 0.400, Neut % (Auto) 71.1 H, Lymph % (Auto) 16.0 L, [place] % (Auto) 8.3, Eos % (Auto) 3.3, Baso % (Auto) 0.9, Absolute Neuts (auto) 5.7, Absolute Lymphs (auto) 1.27, Nucleated RBC % 0 07/15/21 16:20: Sodium 139, Potassium 4.3, Chloride 97 L, Carbon Dioxide 42.0 H, Anion Gap 0 L, BUN 22 H, Creatinine 0.64 L, Estim Creat Clear Calc 59.79, Est GFR (MDRD) Af Amer 160, Est GFR (MDRD) Non-Af 132, BUN/Creatinine Ratio 34.6 H, Glucose 122 H, Calcium 8.5, Troponin I High Sens 12 Rhythm Strip Rhythm Strip: Sinus Rhythm Rate: 73 Ectopy: None Radiology Impression Chest X-Ray 07/15/21 17:25 IMPRESSION: 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 Electronically Signed: Russell Thomas MD at 18:24 EST , Service support , Assessment & Plan Assessment/Plan (1) COPD exacerbation: (2) Morbid obesity due to excess calories: PLAN: Acute exacerbation of COPD Chest x-ray image was independently interpreted and agree radiologist interpretation above. Scheduled DuoNeb Albuterol as needed Solu-Medrol Continue oxygen saturation and titrate to keep saturation more equal to 90%. Review of labs showed normal white count of 8.0 but with neutrophilia of 71.1% and lymphopenia of 16.0%. Rapid Covid antigen is negative. Chest x-ray is not symptomatology of Covid. CBC and BMP ordered Obstructive sleep apnea Continue home noninvasive pressure ventilation nightly and as needed. Morbid Obesity : BMI: 47.7 kg/m2. Complicates care. Lifestyle modification recommended. BPH: Flomax continued GERD: PPI continued. Atrial fibrillation Stable Metoprolol continued. Diastolic heart failure Does not appear to be fluid overloaded. Interpretation of echocardiogram on 07/30/2019 were reviewed. Echo showed estimated ejection fraction of 55%. Platelet function was indeterminate. Trivial tricuspid valve insufficiency. Moderate focal aortic valve calcification. Mild focal aortic valve thickening. Lasix continued. DVT prophylaxis: Lovenox ordered. Charges/Coding Visit Charges Inpatient E&M: 79807 Init Hosp L3
--- NOTE | 2021-07-15 22:10 | PCS.PANDOC ---
PANDEMIC DOCUMENTATION INITIATED: Date: 03/10/2021 Time: 1900 Emergency documentation initiated 07/15/21 @ 2207
--- NOTE | 2021-07-15 22:49 | PCS.PANDOC ---
PANDEMIC DOCUMENTATION INITIATED: Date: 03/10/2021 Time: 190
[2021-07-15] MEDS: Enoxaparin 40 MG/0.4 ML Syringe SC (22:54)
[2021-07-16] VITALS (10 sets, daily range): BP systolic 104–135; BP diastolic 64–75; PULSE 73–94; RESP 18–24; TEMP 36.5–36.8; O2SAT 90–97
[2021-07-16] MEDS: 0.9% Saline Lock 10 ML Syringe IV ×3 (04:58→21:57)
[2021-07-16 06:12] LABS: Absolute Lymphocyte Count 0.53 X10^3/uL (0.83-4.51); Absolute Neutrophil Count 7.8 X10^3/uL (2.0-7.7); Basophil# 0.01 X10^3/uL; Basophil% 0.1 % (0-1); Hematocrit 42.6 % (40-54); Hemoglobin 12.5 g/dL (13.0-16.5); Lymphocyte # 0.53 X10^3/ul (0.83-4.51); Lymphocyte % 6.3 % (19-41); Mean Corp Hgb Conc 29.3 g/dL (32-36); Mean Corpuscular Hgb 27.7 pg (27.0-32.0); Mean Corpuscular Volume 94.2 fL (80-94); Mean Platelet Vol. 10.1 fl (6.2-12.0); Monocyte# 0.13 X10^3/uL; Monocyte% 1.5 % (0-10); NRBC Flagged by Analyzer 0 % (0-5); Neutrophil # 7.78 X10^3/uL (2.7-7.7); Neutrophil % 91.7 % (47-70); POSITIVE DIFFERENTIAL YES; Platelet Count 258 K/mm3 (150-450); RBC Distribution Width CV 13.3 % (11.6-14.6); RBC Distribution Width SD 46.1 fl (35.1-43.9); Red Blood Count 4.52 M/mm3 (4.6-6.2); White Blood Count 8.5 K/mm3 (4.4-11.0)
[2021-07-16 06:13] LABS: Differential Indicated SCAN CRITERIA MET
[2021-07-16 06:32] LABS: Differential Comment SCANNED
[2021-07-16 06:34] LABS: Anion Gap 6 (5-15); BUN 19 mg/dL (7-18); Calcium,Total 8.6 mg/dL (8.5-10.1); Chloride 95 mmol/L (98-107); Creatinine, Serum 0.58 mg/dL (0.70-1.30); EST Glomerular Filtration Rate 148 mL/min (>60); Est Glom Filt Rate - Afr Amer 179 mL/min (>60); Estimated Creatinine Clearance 59.79 ml/min; Glucose 150 mg/dL (74-106); Potassium 4.4 mmol/L (3.5-5.1); Sodium Level 142 mmol/L (136-145)
[2021-07-16] MEDS: Furosemide 40 MG Tablet PO (08:12)
[2021-07-16] MEDS: Ferrous Sulfate 325 MG Tablet PO (08:12)
[2021-07-16] MEDS: Finasteride 5 MG Tablet PO (08:12)
[2021-07-16] MEDS: Ascorbic Acid 500 MG Tablet 1000 MG PO (08:12)
[2021-07-16] MEDS: Aspirin E.C. 81 MG Tablet PO (08:12)
[2021-07-16] MEDS: Metoprolol Tartrate 25 MG Tablet PO ×2 (08:12→21:43)
[2021-07-16] MEDS: Tamsulosin HCl 0.4 MG Capsule 0.8 MG PO (08:13)
[2021-07-16] MEDS: Enoxaparin 40 MG/0.4 ML Syringe SC ×2 (08:13→21:42)
--- NOTE | 2021-07-16 09:23 | NURSING ---
CHANGED PT TO UP AD MARCELA. STEADY GAIT NOTED WHILE UP TO BATHROOM.
--- NOTE | 2021-07-16 10:44 | CASEMGMT ---
KAYLANI PAYNE Assessment: Face to Face with pt for initial transition planning/care coordination assessment. Patient sitting on side of bed with oxygen on, in no apparent distress. Patient's at bedside. KALYANI PAYNE introduced self and role at [facility], pt voices understanding and consents to assessment. Pt is A/O x4 and answers all questions appropriately at this time. Care providers, pharmacy, and demographics verified/updated. Admitting Dx: Acute Exacerbation of COPD PCP: Olga Specialists: Dr. Yandel murphy, Dr. Ross, cardio Preferred Pharmacy: [facility] Insurance: [employer] Medicare PPO Prescription Benefit: yes LW/HPOA: Pt states he does have a LW/DPOA but unsure who the DPOA is. Patient made aware these are not on file with [facility] and may be brought into the hospital to be scanned into the record. LNOK: , Isela Powers Living Arrangements: Pt lives with in one story house with 2 stairs to enter the home without a railing. Patient states he is typically independent with ADLs but is easily fatigued related to breathing difficulties. Transportation: Pt drives self and denies concerns with transportation. 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 DME/HHC/SNF: Patient wears continuous oxygen at 4L/min, as well as CPAP at night with oxygen bled in (supplied by [facility]). Does have portable oxygen. Patient also has walker (uses intermittently, but not always), grab bars, walk-in tub, and pulse oximetry monitor. Denies previous HHC or SNF stays. Call placed to [facility] to verify home oxygen settings, spoke to Windy. Will check patient record and call KALYANI PAYNE back to confirm settings. Pt states no concerns with going home at time of dc. Pt states no further concerns/needs. CM to follow. Advised pt to ask CM if any further question/concerns/needs arise, voices understanding. Pt Goal: home Plan: home
--- NOTE | 2021-07-16 12:26 | PCM.PN.HOSP ---
Documented by User: Jen Robbins NP-C 07/16/21 12:35 Subjective Subjective Patient seen and examined. Patient sitting in bed no distress noted. Patient currently on 6 L nasal cannula oxygen, home baseline is 4 L nasal cannula oxygen. Patient states that his shortness of breath is mildly improved from admission. Objective Data Objective Data Vital Signs: Vital Signs Temp Pulse Resp BP Pulse Ox 98.2 F 87 20 H 133/69 H 94 07/16/21 08:00 07/16/21 08:12 07/16/21 08:00 07/16/21 08:00 07/16/21 08:00 Oxygen Flow Rate (L/min) 5 Oxygen Delivery Method Nasal Cannula Weight: 286 lb 9.615 oz Body Mass Index (BMI) 47.7 Lab / Micro Data Result Diagrams: 07/16/21 05:20 07/16/21 05:20 Labs: Laboratory Results - last 24 hr 07/15/21 16:20: WBC 8.0, RBC 4.53 L, Hgb 12.7 L, Hct 43.5, MCV 96.0 H, MCH 28.0, MCHC 29.2 L, RDW Std Deviation 47.8 H, RDW Coeff of Earle 13.4, Plt Count 227, MPV 9.5, Immature Gran % (Auto) 0.400, Neut % (Auto) 71.1 H, Lymph % (Auto) 16.0 L, [place] % (Auto) 8.3, Eos % (Auto) 3.3, Baso % (Auto) 0.9, Absolute Neuts (auto) 5.7, Absolute Lymphs (auto) 1.27, Nucleated RBC % 0 07/15/21 16:20: Sodium 139, Potassium 4.3, Chloride 97 L, Carbon Dioxide 42.0 H, Anion Gap 0 L, BUN 22 H, Creatinine 0.64 L, Estim Creat Clear Calc 59.79, Est GFR (MDRD) Af Amer 160, Est GFR (MDRD) Non-Af 132, BUN/Creatinine Ratio 34.6 H, Glucose 122 H, Calcium 8.5, Troponin I High Sens 12 07/16/21 05:20: WBC 8.5, RBC 4.52 L, Hgb 12.5 L, Hct 42.6, MCV 94.2 H, MCH 27.7, MCHC 29.3 L, RDW Std Deviation 46.1 H, RDW Coeff of Earle 13.3, Plt Count 258, MPV 10.1, Immature Gran % (Auto) 0.400, Neut % (Auto) 91.7 H, Lymph % (Auto) 6.3 L, [place] % (Auto) 1.5, Eos % (Auto) 0.0, Baso % (Auto) 0.1, Absolute Neuts (auto) 7.8 H, Absolute Lymphs (auto) 0.53 L, Nucleated RBC % 0, Differential Comment SCANNED 07/16/21 05:20: Sodium 142, Potassium 4.4, Chloride 95 L, Carbon Dioxide 41.0 H, Anion Gap 6, BUN 19 H, Creatinine 0.58 L, Estim Creat Clear Calc 59.79, Est GFR (MDRD) Af Amer 179, Est GFR (MDRD) Non-Af 148, BUN/Creatinine Ratio 33.0 H, Glucose 150 H, Calcium 8.6 Micro: Microbiology 07/15/21 20:46 Nasal Secretion SARS-CoV-2 Antigen (Rapid) - Final Radiography Diagnostic Testing: Radiology Impression Chest X-Ray 07/15/21 17:25 IMPRESSION: 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 Electronically Signed: Russell Thomas MD at 18:24 EST , Service support , Rhythm Strip Rhythm Strip: Sinus Rhythm Rate: 73 Ectopy: None Physical Exam Const alert, oriented x3 and no apparent distress HEENT head/scalp atraumatic and moist oral mucous membranes Head and Scalp: normocephalic Eyes conjunctivae normal and no scleral icterus Neck full ROM and supple General: trachea midline Resp Effort and Inspection: able to speak in complete sentences and symmetric chest movement Auscultation: rhonchi lower bilaterally and diminished lung sounds bilateral throughout Cardio regular rate, regular rhythm, S1 normal heart sound and S2 normal heart sound GI normal to inspection, nondistended, normoactive bowel sounds, soft to palpation and non-tender Extremity normal to inspection, full ROM and no clubbing, cyanosis or edema Peripheral Pulses: Yes pulses 2+ throughout Skin no rashes or lesions noted, no wounds and skin turgor normal Skin Narrative: Multiple bruises in various stages of healing noted to bilateral upper extremities. Neuro oriented x3, moves all extremities, no focal motor deficits and no sensory deficits noted Sensorium / Orientation: awake and alert Assessment & Plan Assessment/Plan (1) COPD exacerbation: (2) Acute on chronic respiratory failure with hypoxia: PLAN: 1. Acute on chronic respiratory failure with hypoxia secondary to COPD exacerbation -Continue scheduled DuoNeb treatments as well as as needed albuterol nebulizer treatments -Continue Solu-Medrol -Patient currently on 6 L nasal cannula oxygen, 4 L nasal cannula oxygen baseline at home. -Daily CBC and BMP 2. Obstructive sleep apnea -Continue home NIV 3. Atrial fibrillation -Stable, continue metoprolol 4. CHF -Lasix increased from 20 mg daily to 40 mg daily. -Strict intake and output We will continue patient's home medications for chronic diseases. DVT prophylaxis-subcu Lovenox This patient was seen by Jen Robbins NP-C under the supervision of Dr. Roman. Documented by User: Dr. Alhaji Roman, 07/16/21 13:33 Subjective Subjective Still short of breath. Not significantly better. Objective Data Lab / Micro Data Result Diagrams: 07/16/21 05:20 07/16/21 05:20 Physical Exam Const alert Resp normal respiratory effort Cardio regular rate, regular rhythm, S1 normal heart sound and S2 normal heart sound GI normal to inspection, nondistended, normoactive bowel sounds, soft to palpation, non-tender and non-distended Extremity normal to inspection Assessment & Plan Assessment/Plan (1) COPD exacerbation: (2) Acute on chronic respiratory failure with hypoxia: PLAN: Patient seen and examined independently. Data and vitals reviewed. I agree with the above note by the nurse practitioner. 1. acute on chronic respiratory failure 2/2 COPD exacerbation wean oxygen as able. 2. AECOPD continue BDs and methylpred. Charges/Coding Visit Charges Inpatient E&M: 63522 Subs Hosp L2
--- NOTE | 2021-07-16 12:53 | CASEMGMT ---
Received tc from Windy at [facility], she states pt rx for O2 is 6L cont.
[2021-07-16] MEDS: Ipratropium/Albuterol Sulfate 3 ML AMPUL.NEB INHALATION (19:42)
[2021-07-16] MEDS: Pantoprazole Sodium 20 MG Tablet PO (21:42)
[2021-07-17] VITALS (19 sets, daily range): BP systolic 105–127; BP diastolic 53–83; PULSE 68–90; RESP 16–24; TEMP 36.4–36.7; O2SAT 79–98
[2021-07-17] MEDS: 0.9% Saline Lock 10 ML Syringe IV ×4 (06:34→22:32)
[2021-07-17] MEDS: Ipratropium/Albuterol Sulfate 3 ML AMPUL.NEB INHALATION ×4 (07:08→20:02)
[2021-07-17] MEDS: Ascorbic Acid 500 MG Tablet 1000 MG PO (08:51)
[2021-07-17] MEDS: Ferrous Sulfate 325 MG Tablet PO (08:51)
[2021-07-17] MEDS: Tamsulosin HCl 0.4 MG Capsule 0.8 MG PO (08:51)
[2021-07-17] MEDS: Enoxaparin 40 MG/0.4 ML Syringe SC ×2 (08:51→21:56)
[2021-07-17] MEDS: Aspirin E.C. 81 MG Tablet PO (08:51)
[2021-07-17] MEDS: Furosemide 40 MG Tablet PO (08:51)
[2021-07-17] MEDS: Finasteride 5 MG Tablet PO (08:51)
[2021-07-17] MEDS: Metoprolol Tartrate 25 MG Tablet PO ×2 (10:41→21:56)
--- NOTE | 2021-07-17 12:53 | PCM.PN.HOSP ---
Documented by User: Earle WEBBER 07/17/21 13:09 Subjective Subjective Patient is a 71-year-old male resting in a chair, alert and orient x3. Patient reports improvement in his shortness of breath, although is still not at baseline. Denies development of any new symptoms overnight. Does not appear in acute distress. Objective Data Objective Data Vital Signs: Vital Signs Temp Pulse Resp BP Pulse Ox 98.0 F 85 18 116/65 91 07/17/21 10:38 07/17/21 11:10 07/17/21 11:10 07/17/21 10:38 07/17/21 10:38 Oxygen Flow Rate (L/min) 6 Oxygen Delivery Method Nasal Cannula Weight: 286 lb 9.615 oz Body Mass Index (BMI) 47.7 Lab / Micro Data Result Diagrams: 07/16/21 05:20 07/16/21 05:20 Micro: Microbiology 07/15/21 20:46 Nasal Secretion SARS-CoV-2 Antigen (Rapid) - Final Rhythm Strip Rhythm Strip: Sinus Rhythm Rate: 73 Ectopy: None Physical Exam Const alert, oriented x3 and no apparent distress HEENT head/scalp atraumatic and moist oral mucous membranes Head and Scalp: normocephalic Eyes PERRL, EOMs intact bilaterally and conjunctivae normal Neck no lymphadenopathy, supple and no JVD Resp Effort and Inspection: tachypneic, respiratory distress and labored Auscultation: diminished lung sounds Cardio regular rate, regular rhythm, no murmurs and no JVD GI normal to inspection, nondistended, normoactive bowel sounds, soft to palpation and non-tender Extremity normal to inspection, full ROM and no clubbing, cyanosis or edema Skin no rashes or lesions noted, no wounds and skin turgor normal Neuro CN's II-XII intact bilaterally Psych affect normal Assessment & Plan Assessment/Plan (1) Acute on chronic respiratory failure with hypoxia: (2) COPD exacerbation: PLAN: Day 2 Discharge planning: Current plan is for patient to discharge home when he is medically ready. 1) acute on chronic respiratory failure secondary to COPD exacerbation Patient is at baseline home oxygen requirements on 6 L, however still appears in respiratory distress as he was tachypneic on examination. Continue Solu-Medrol, duo nebs and albuterol as needed. Continue supplemental oxygen. Incentive spirometry encouraged. 2) YENI Continue home Non-invasive ventilation. 3) paroxysmal atrial fibrillation Heart rate is stable. Patient heart rate controlled on metoprolol. Patient is not on home anticoagulation. Per last cardiology visit in October 2020, patient not on chronic anticoagulation due to no recurrence of atrial fibrillation, well controlled on metoprolol and aspirin. 4) CHF Do not believe patient is in acute exacerbation. Home Lasix increased from 20 mg daily to 40. 5) BPH Continue tamsulosin and finasteride. 6) GERD Continue PPI. DVT prophylaxis- Lovenox Patient seen by Earle Barnard PA-C, under the supervision of Dr. Roman. Documented by User: Dr. Alhaji Roman, DO 07/17/21 13:46 Subjective Subjective Says he feels better, but has had his oxygen increased to 6l/m from 4. Objective Data Lab / Micro Data Result Diagrams: 07/16/21 05:20 07/16/21 05:20 Physical Exam Const alert and no apparent distress Resp normal respiratory effort and no retractions Resp Narrative: diminished air movement throughout. Cardio regular rate, regular rhythm, S1 normal heart sound and S2 normal heart sound GI normal to inspection, nondistended, normoactive bowel sounds, soft to palpation and non-tender Psych affect normal Assessment & Plan Assessment/Plan (1) Acute on chronic respiratory failure with hypoxia: (2) COPD exacerbation: PLAN: Patient seen and examined independently. Data and vitals reviewed. I agree with the above note by the physician clerical dentist assistant. 1. acute on chronic respiratory failure 2/2 COPD exacerbation wean oxygen as able. appears worse today add furosemide as he appears overloaded (cor pulmonale?) 2. AECOPD continue BDs and methylpred. Charges/Coding Visit Charges Inpatient E&M: 29119 Subs Hosp L2
[2021-07-17] MEDS: Furosemide 40 MG/4 ML Vial IV (17:43)
[2021-07-17] MEDS: Pantoprazole Sodium 20 MG Tablet PO (21:56)
[2021-07-18] VITALS (7 sets, daily range): BP systolic 138–142; BP diastolic 56–65; PULSE 68–94; RESP 16–24; TEMP 36.4–36.5; O2SAT 82–95
[2021-07-18] MEDS: 0.9% Saline Lock 10 ML Syringe IV (05:15)
[2021-07-18 06:50] LABS: Anion Gap 3 (5-15); BUN 40 mg/dL (7-18); BUN/Creat Ratio 47.6 RATIO (10-20); Calcium,Total 9.2 mg/dL (8.5-10.1); Chloride 93 mmol/L (98-107); Creatinine, Serum 0.84 mg/dL (0.70-1.30); EST Glomerular Filtration Rate 96 mL/min (>60); Est Glom Filt Rate - Afr Amer 116 mL/min (>60); Estimated Creatinine Clearance 71.18 ml/min; Glucose 149 mg/dL (74-106); Potassium 4.7 mmol/L (3.5-5.1); Sodium Level 140 mmol/L (136-145)
[2021-07-18] MEDS: Ipratropium/Albuterol Sulfate 3 ML AMPUL.NEB INHALATION ×2 (07:48→10:56)
--- NOTE | 2021-07-18 11:56 | PCM.DC ---
Discharge Instructions Diet Discharge Diet: No restrictions Activity Discharge Activity: Return to Normal Activity Weight Bearing Status: Weight bearing as tolerated Dressing / Incision Call your doctor if you observe: Fever of 101 or Higher, Numbness or Tingling, Shortness of breath, Dizziness, Chest pain, Increased palpitations (irregular heartbeat) and Calf discomfort Follow Up Care Please Follow Up With: Primary care provider When: Within the next two weeks. Test Results: Test results from this visit will be discussed in further detail at your follow-up appointment, if applicable. Discharge Plan Admission Admit Date/Time: 07/15/21 20:46 Primary Reason for Your Visit: Shortness of breath. Attending Provider: Alhaji Roman Primary Care Provider: Earle Espinoza Discharge Orders/Prescriptions Prescriptions: New prednisone 20 mg tablet 40 mg PO DAILY Qty: 10 RF: 0 Continued Calcium Magnesium 500 mg calcium -250 mg tablet 1 tab PO DAILY RF: 0 garlic Tablet 600 mg PO DAILY RF: 0 ascorbic acid (vitamin C) 500 mg tablet 1,000 mg PO DAILY RF: 0 albuterol sulfate 5 mg/mL solution for nebulization 5 mg INHALATION Q6H PRN (Reason: sob) RF: 0 aspirin [Adult Low Dose Aspirin] 81 mg tablet,delayed release (DR/EC) 81 mg PO DAILY RF: 0 albuterol sulfate 90 mcg/actuation HFA aerosol inhaler 2 puff INHALATION Q6H PRN (Reason: shortness of breath or wheezing) Qty: 18 RF: 3 budesonide-formoterol 1 INHALER inhaler 2 puff INHALATION BID RF: 0 tamsulosin 0.4 mg capsule 0.8 mg PO DAILY RF: 0 finasteride 5 MG tablet 5 mg PO DAILY RF: 0 ferrous sulfate 325 MG tablet 325 mg PO DAILY RF: 0 metoprolol tartrate 25 MG tablet 25 mg PO BID RF: 0 omeprazole 20 mg capsule,delayed release(DR/EC) 20 mg PO QHS RF: 0 tiotropium bromide 2.5 mcg/actuation mist 2 puff INHALATION DAILY Qty: 4 RF: 6 furosemide [Lasix] 20 mg tablet 40 mg PO QDAY Qty: 180 RF: 3 Referrals / Follow Up: Earle Espinoza MD [Primary Care Provider] - Within 2 Weeks Yandel Shah MD [STAFF PHYSICIAN] - Within 2 Weeks Disposition Disposition (needs filled in before D/C Order can be placed): Home, Self Care
[2021-07-18] MEDS: Metoprolol Tartrate 25 MG Tablet PO (12:14)
[2021-07-18] MEDS: Ferrous Sulfate 325 MG Tablet PO (12:14)
[2021-07-18] MEDS: Aspirin E.C. 81 MG Tablet PO (12:14)
[2021-07-18] MEDS: Tamsulosin HCl 0.4 MG Capsule 0.8 MG PO (12:14)
[2021-07-18] MEDS: Ascorbic Acid 500 MG Tablet 1000 MG PO (12:14)
[2021-07-18] MEDS: Finasteride 5 MG Tablet PO (12:14)
--- NOTE | 2021-07-18 14:19 | DS.PCM_ITS ---
Documented by User: Earle WEBBER 07/18/21 14:25 Providers Date of Admission: 07/15/21 Primary Care Physician: Dr. Earle Espinoza MD Reason For Visit: ACUTE EXACERBATION OF COPD Diagnosis Discharge Diagnosis (1) Acute on chronic respiratory failure with hypoxia: Status: Chronic Code(s): J96.21 - Acute and chronic respiratory failure with hypoxia (2) COPD exacerbation: Status: Chronic Code(s): J44.1 - Chronic obstructive pulmonary disease with (acute) exacerbation Medications at Discharge Home Medications budesonide-formoterol 2 puff INHALATION BID 02/22/15 finasteride 5 mg PO DAILY 05/05/20 albuterol sulfate 5 mg/mL(0.5 %) solution for nebulization 5 mg INHALATION Q6H PRN 07/04/20 ascorbic acid (vitamin C) 500 mg tablet 1,000 mg PO DAILY tab 07/04/20 calcium carb-Ca gluc 500 mg calcium-magnesium ox-Mg gluc 250 mg tablet 1 tab PO DAILY tab 07/04/20 garlic 600 mg PO DAILY tab 07/04/20 tamsulosin 0.4 mg capsule 0.8 mg PO DAILY cap 07/04/20 ferrous sulfate 325 mg PO DAILY 10/09/20 metoprolol tartrate 25 mg PO BID 10/09/20 aspirin 81 mg tablet,delayed release 81 mg PO DAILY 10/24/20 albuterol sulfate 90 mcg/actuation aerosol inhaler 2 puff INHALATION Q6H PRN #18 g 04/14/21 tiotropium bromide 2.5 mcg/actuation mist for inhalation 2 puff INHALATION DAILY #4 gm 05/01/21 furosemide 20 mg tablet 40 mg PO QDAY #180 tab 05/26/21 omeprazole 20 mg PO QHS 07/15/21 prednisone 40 mg PO DAILY #10 tab 07/18/21 Hospital Course Summary of Care Provided Minutes Spent on Discharge: 35 Hospital Course: Disposition: Patient to be discharged home. 1) acute on chronic respiratory failure secondary to COPD exacerbation Patient shortness of breath significantly improved from admission. With ambulation on 5 L patient was satting 90%, which is baseline home oxygen requirement. Patient will be initiated on prednisone burst for 5 days, other COPD medications continued, continue supplemental oxygen at home. Follow-up with primary care provider within the next 2 weeks. 2) YENI Continue home Non-invasive ventilation. 3) paroxysmal atrial fibrillation Continue home metoprolol. Patient is not on home anticoagulation, per last cardiology visit in October 2020, patient not on chronic anticoagulation due to no recurrence of atrial fibrillation, well controlled on metoprolol and aspirin. 4) CHF Do not believe patient is in acute exacerbation. Continue home CHF regimen. 5) BPH Continue tamsulosin and finasteride. 6) GERD Continue PPI. Patient seen by Earle Barnard PA-C, under the supervision of Dr. Roman. Physical Exam Narrative Patient is a 71-year-old male comfortably resting in a chair, alert and orient x3. Patient reports significant improvement in his shortness of breath from admission. Denies development of any new symptoms overnight. Does not appear in acute distress. Const alert, oriented x3 and no apparent distress HEENT normocephalic, head/scalp atraumatic and hearing grossly normal bilaterally Eyes PERRL, EOMs intact bilaterally and conjunctivae normal Neck no lymphadenopathy, supple and no JVD Resp normal respiratory effort, no retractions and no use of accessory muscles Auscultation: wheezes Cardio regular rate, regular rhythm, no murmurs and no JVD GI normal to inspection, nondistended, normoactive bowel sounds, soft to palpation and non-tender Extremity normal to inspection, full ROM and no clubbing, cyanosis or edema Skin no rashes or lesions noted, no wounds and skin turgor normal Neuro CN's II-XII intact bilaterally Psych affect normal Weight / BMI Weight Weight: 286 lb 9.615 oz Body Mass Index (BMI) 47.7 ABG / Lab / Microbiology Data Result Diagrams: 07/16/21 05:20 07/18/21 05:25 Laboratory: Laboratory Results - last 24 hr 07/18/21 05:25: Sodium 140, Potassium 4.7, Chloride 93 L, Carbon Dioxide 44.0 H, Anion Gap 3 L, BUN 40 H, Creatinine 0.84, Estim Creat Clear Calc 71.18, Est GFR (MDRD) Af Amer 116, Est GFR (MDRD) Non-Af 96, BUN/Creatinine Ratio 47.6 H, Glucose 149 H, Calcium 9.2 Microbiology: Microbiology 07/15/21 20:46 Nasal Secretion SARS-CoV-2 Antigen (Rapid) - Final D/C Instructions Discharge Diet: No restrictions Weight Bearing Status: Weight bearing as tolerated Call your doctor if you observe: Fever of 101 or Higher, Numbness or Tingling, Shortness of breath, Dizziness, Chest pain, Increased palpitations (irregular heartbeat) and Calf discomfort Please Follow Up With: Primary care provider When: Within the next two weeks. Meaningful Use Info Meaningful Use Diagnoses (Choose all that apply): None applicable Discharge Plan Admission Admit Date/Time: 07/15/21 20:46 Primary Reason for Your Visit: Shortness of breath. Attending Provider: Alhaji Roman Primary Care Provider: Earle Espinoza Discharge Orders/Prescriptions Prescriptions: New prednisone 20 mg tablet 40 mg PO DAILY Qty: 10 RF: 0 Continued Calcium Magnesium 500 mg calcium -250 mg tablet 1 tab PO DAILY RF: 0 garlic Tablet 600 mg PO DAILY RF: 0 ascorbic acid (vitamin C) 500 mg tablet 1,000 mg PO DAILY RF: 0 albuterol sulfate 5 mg/mL solution for nebulization 5 mg INHALATION Q6H PRN (Reason: sob) RF: 0 aspirin [Adult Low Dose Aspirin] 81 mg tablet,delayed release (DR/EC) 81 mg PO DAILY RF: 0 albuterol sulfate 90 mcg/actuation HFA aerosol inhaler 2 puff INHALATION Q6H PRN (Reason: shortness of breath or wheezing) Qty: 18 RF: 3 budesonide-formoterol 1 INHALER inhaler 2 puff INHALATION BID RF: 0 tamsulosin 0.4 mg capsule 0.8 mg PO DAILY RF: 0 finasteride 5 MG tablet 5 mg PO DAILY RF: 0 ferrous sulfate 325 MG tablet 325 mg PO DAILY RF: 0 metoprolol tartrate 25 MG tablet 25 mg PO BID RF: 0 omeprazole 20 mg capsule,delayed release(DR/EC) 20 mg PO QHS RF: 0 tiotropium bromide 2.5 mcg/actuation mist 2 puff INHALATION DAILY Qty: 4 RF: 6 furosemide [Lasix] 20 mg tablet 40 mg PO QDAY Qty: 180 RF: 3 Referrals / Follow Up: Yandel Shah MD [STAFF PHYSICIAN] - Within 2 Weeks Earle Espinoza MD [Primary Care Provider] - Within 2 Weeks Disposition Disposition (needs filled in before D/C Order can be placed): Home, Self Care Documented by User: Dr. Alhaji Roman DO 07/18/21 14:51 Providers Date of Admission: 07/15/21 Reason For Visit: ACUTE EXACERBATION OF COPD Medications at Discharge Home Medications budesonide-formoterol 2 puff INHALATION BID 02/22/15 finasteride 5 mg PO DAILY 05/05/20 albuterol sulfate 5 mg/mL(0.5 %) solution for nebulization 5 mg INHALATION Q6H PRN 07/04/20 ascorbic acid (vitamin C) 500 mg tablet 1,000 mg PO DAILY tab 07/04/20 calcium carb-Ca gluc 500 mg calcium-magnesium ox-Mg gluc 250 mg tablet 1 tab PO DAILY tab 07/04/20 garlic 600 mg PO DAILY tab 07/04/20 tamsulosin 0.4 mg capsule 0.8 mg PO DAILY cap 07/04/20 ferrous sulfate 325 mg PO DAILY 10/09/20 metoprolol tartrate 25 mg PO BID 10/09/20 aspirin 81 mg tablet,delayed release 81 mg PO DAILY 10/24/20 albuterol sulfate 90 mcg/actuation aerosol inhaler 2 puff INHALATION Q6H PRN #18 g 04/14/21 tiotropium bromide 2.5 mcg/actuation mist for inhalation 2 puff INHALATION DAILY #4 gm 05/01/21 furosemide 20 mg tablet 40 mg PO QDAY #180 tab 05/26/21 omeprazole 20 mg PO QHS 07/15/21 prednisone 40 mg PO DAILY #10 tab 07/18/21 Hospital Course Operations None Summary of Care Provided Minutes Spent on Discharge: 35 Hospital Course: 8-year-old male presents with acute shortness of breath. Patient found to have acute exacerbation of COPD. Patient was started on bronchodilators as well as steroids and is still improved. Yesterday, patient did receive a dose of furosemide. Patient is well is back at his baseline of 4 L. Did recommend that he get the COVID-19 vaccine he is stated that he would not as he has had COVID-19 back in April 2020. I strongly recommended caution order picker with his underlying lung disease that given the newer potentially less virulent strain could have significant impact on him. Physical Exam Const alert Resp Resp Narrative: improved air movement bilaterally. Cardio regular rate, regular rhythm, S1 normal heart sound and S2 normal heart sound GI normal to inspection, nondistended, normoactive bowel sounds ABG / Lab / Microbiology Data Result Diagrams: 07/16/21 05:20 07/18/21 05:25 Discharge Plan Admission Admit Date/Time: 07/15/21 20:46 Primary Reason for Your Visit: Shortness of breath. Attending Provider: Alhaji Roman Primary Care Provider: Earle Espinoza Discharge Orders/Prescriptions Prescriptions: New prednisone 20 mg tablet 40 mg PO DAILY Qty: 10 RF: 0 Continued Calcium Magnesium 500 mg calcium -250 mg tablet 1 tab PO DAILY RF: 0 garlic Tablet 600 mg PO DAILY RF: 0 ascorbic acid (vitamin C) 500 mg tablet 1,000 mg PO DAILY RF: 0 albuterol sulfate 5 mg/mL solution for nebulization 5 mg INHALATION Q6H PRN (Reason: sob) RF: 0 aspirin [Adult Low Dose Aspirin] 81 mg tablet,delayed release (DR/EC) 81 mg PO DAILY RF: 0 albuterol sulfate 90 mcg/actuation HFA aerosol inhaler 2 puff INHALATION Q6H PRN (Reason: shortness of breath or wheezing) Qty: 18 RF: 3 budesonide-formoterol 1 INHALER inhaler 2 puff INHALATION BID RF: 0 tamsulosin 0.4 mg capsule 0.8 mg PO DAILY RF: 0 finasteride 5 MG tablet 5 mg PO DAILY RF: 0 ferrous sulfate 325 MG tablet 325 mg PO DAILY RF: 0 metoprolol tartrate 25 MG tablet 25 mg PO BID RF: 0 omeprazole 20 mg capsule,delayed release(DR/EC) 20 mg PO QHS RF: 0 tiotropium bromide 2.5 mcg/actuation mist 2 puff INHALATION DAILY Qty: 4 RF: 6 furosemide [Lasix] 20 mg tablet 40 mg PO QDAY Qty: 180 RF: 3 Referrals / Follow Up: Yandel Shah MD [STAFF PHYSICIAN] - Within 2 Weeks Earle Espinoza MD [Primary Care Provider] - Within 2 Weeks Disposition Disposition (needs filled in before D/C Order can be placed): Home, Self Care Charges/Coding Visit Charges Inpatient E&M: 29020 Disch Hosp
== END 2021-07-18 13:40 | disposition home or self-care (01) | DRG 190 ==
LOC: ED 20:45 → MS3 21:08
PROVIDERS: Admitting Provider Hospitalist; Emergency Provider Emergency Medicine; PCP Family Medicine
DX: J43.9 Emphysema, unspecified (principal); J96.21 Acute and chronic respiratory failure with hypoxia; I50.32 Chronic diastolic (congestive) heart failure; Z68.41 Body mass index [BMI] 40.0-44.9, adult; I48.0 Paroxysmal atrial fibrillation; N40.0 Benign prostatic hyperplasia without lower urinary tract symptoms; K21.9 Gastro-esophageal reflux disease without esophagitis; D64.9 Anemia, unspecified; G47.33 Obstructive sleep apnea (adult) (pediatric); E66.01 Morbid (severe) obesity due to excess calories; Z99.81 Dependence on supplemental oxygen; Z79.82 Long term (current) use of aspirin; Z79.899 Other long term (current) drug therapy; Z86.16 Personal history of COVID-19; Z87.891 Personal history of nicotine dependence
CPT/HCPCS: 36415; 71045; 80048; 84484; 85025; 87426; 93005; 94640; 99285; A4216; J1940

== ENCOUNTER 2021-09-05 14:54 | Inpatient (IN) | payer MEDICARE, SELFPAY ==
[2021-09-05] VITALS (13 sets, daily range): BP systolic 99–133; BP diastolic 59–90; PULSE 67–90; RESP 18–26; TEMP 36.4–37.1; O2SAT 93–100; BMI 49.8; BMI 47.2
--- NOTE | 2021-09-05 15:57 | EDS_ITS ---
HPI History of Present Illness Chief Complaint: Shortness of Breath Informant: patient Onset/Context/Timing Onset: Days (2) Context: gradual Timing: Continuous Quality: Positive for Dyspnea on exertion Worsened by: Exertion Relieved by: Nothing Associated Symptoms Negative for cough, rhinorrhea, post nasal drip, ear pain, fever, sore throat, chills, sweats, clear sputum, white sputum, yellow sputum or green sputum Narrative Narrative: Patient presents with shortness of breath that has been getting worse over the past 2 days. Patient states it is gradually getting worse. Patient states it is worse with exertion. Patient admits to some lower extremity swelling. Patient denies any fevers or chills. Patient denies any cough. Patient denies any chest pain. Patient saw his primary care physician today who noted that his pulse oximeter was 88% in his office. Patient was then referred to the emergency department. EMS administered a DuoNeb in route. Patient is feeling better. PE Risk Factors: Negative for Cancer, OCP + Smoking + > 35, Prior DVT or PE, Recent immobilization, Recent surgery and Recent travel [facility] Medical History Anemia Asthma Atrial fibrillation Chronic respiratory failure Congestive heart failure (CHF) COPD (chronic obstructive pulmonary disease) CPAP (continuous positive airway pressure) dependence Diastolic CHF, chronic Edema Emphysema, unspecified Former smoker History of atrial fibrillation Injury of head and neck Loose, teeth Morbid obesity due to excess calories Nonrheumatic aortic (valve) insufficiency Obesity (BMI 30-39.9) On home oxygen therapy Positive occult stool blood test Restless legs Secondary pulmonary hypertension Secondary pulmonary hypertension Sleep apnea Stage 4 very severe COPD by GOLD classification Stage 4 very severe COPD by GOLD classification Wears glasses Home Medications finasteride 5 mg PO DAILY 05/05/20 [History Last Taken 09/04/21] ascorbic acid (vitamin C) 500 mg tablet 1,000 mg PO DAILY tab 07/04/20 [History Last Taken 09/05/21] calcium carb-Ca gluc 500 mg calcium-magnesium ox-Mg gluc 250 mg tablet 1 tab PO DAILY tab 07/04/20 [History Last Taken 09/04/21] garlic 600 mg PO DAILY tab 07/04/20 [History Last Taken 09/05/21] tamsulosin 0.4 mg capsule 0.8 mg PO DAILY cap 07/04/20 [History Last Taken 09/04/21] ferrous sulfate 325 mg PO DAILY 10/09/20 [History Last Taken 09/05/21] metoprolol tartrate 25 mg PO BID 10/09/20 [History Last Taken 09/05/21] aspirin 81 mg tablet,delayed release 81 mg PO DAILY 10/24/20 [History Last Taken 09/04/21] omeprazole 20 mg PO QHS 07/15/21 [History Last Taken 09/04/21] albuterol sulfate 90 mcg/actuation aerosol inhaler 2 puff INHALATION Q6H PRN #18 g 08/08/21 [Rx Last Taken 09/05/21] budesonide-formoterol HFA 160 mcg-4.5 mcg/actuation aerosol inhaler 2 puff INHALATION BID #10.2 g 08/18/21 [Rx Last Taken 09/05/21] furosemide [Lasix] 40 mg PO DAILY 09/05/21 [History Last Taken 09/05/21] prednisone 60 mg PO DAILY #15 tablet 09/05/21 [Rx Last Taken Unknown] tiotropium bromide [Spiriva Respimat] 2 inh INHALATION DAILY 09/05/21 [History Last Taken 09/05/21] Allergy/AdvReac Type Severity Reaction Status Date / Time No Known Allergies Allergy Verified 07/15/21 21:42 Family History Mother Cancer stomach Father Heart disease Brother Cancer Surgical History History of surgery of head Hx of cataract surgery Hx of colonoscopy Social History Smoking Status: Former smoker pack-years: 60 Tobacco: How many years used: 30 alcohol intake: never substance use type: does not use caffeine: Yes Type: coffee Number of servings: 4 what type of physical activity do you participate in: none frequency: does not exercise ROS ROS ED Constitutional Constitutional ED: Denies chills or fever(s) Eyes Eyes: Denies blurry vision or change in vision ENT ENT ED: Denies rhinorrhea or sore throat Cardiovascular Cardiovascular: Denies chest pain or palpitations Respiratory/Chest Respiratory/Chest: Reports dyspnea; Denies cough Gastrointestinal Gastrointestinal: Denies nausea or vomiting Genitourinary Genitourinary ED: Denies dysuria or hematuria Musculoskeletal Musculoskeletal: Denies back pain or neck pain Integumentary Denies abscess or rash Neurologic Neurologic: Denies headache(s) or weakness Allergic/Immunologic Allergic/Immunologic ED: Denies mouth swelling or urticaria EXAM Physical Exam Const Vital Signs: 09/05/21 14:55 09/05/21 15:10 09/05/21 15:12 Temperature 97.8 F 98.7 F Temperature Source Temporal Temporal Pulse Rate 72 90 Respiratory Rate 22 H 24 H Respiratory Effort Short of Breath Respiratory Depth Shallow Respiratory Pattern Tachypnea Blood Pressure 127/59 H 99/75 Blood Pressure Mean 81 83 Pulse Ox 99 93 Oxygen Delivery Method Room Air Nasal Cannula Nasal Cannula Oxygen Flow Rate (L/min) 2 09/05/21 16:18 09/05/21 16:23 09/05/21 18:12 Temperature 98.5 F 98 F Temperature Source Temporal Temporal Pulse Rate 67 70 75 Respiratory Rate 19 H 18 22 H Respiratory Effort Respiratory Depth Respiratory Pattern Blood Pressure 112/60 112/60 Blood Pressure Mean 77 77 Pulse Ox 95 95 Oxygen Delivery Method Nasal Cannula Nasal Cannula Oxygen Flow Rate (L/min) 4 09/05/21 18:55 09/05/21 18:57 Temperature 98 F Temperature Source Temporal Pulse Rate 78 75 Respiratory Rate 22 H 22 H Respiratory Effort Respiratory Depth Respiratory Pattern Blood Pressure 112/60 Blood Pressure Mean 77 Pulse Ox 94 Oxygen Delivery Method Nasal Cannula Oxygen Flow Rate (L/min) 4 Positive well nourished, well developed and obese General Appearance ED: well developed Nutritional Appearance: obese HEENT Reports moist mucous membranes Neck supple and no JVD Resp normal respiratory effort Auscultation: diminished lung sounds diffuse Cardio regular rate and regular rhythm GI non-tender and non-distended Auscultation: normoactive bowel sounds Palpation: soft Extremity General Extremety ED: Yes edema; Negative for tenderness General Extremity: edema Neuro oriented x3, CN's II-XII intact bilaterally and no sensory deficits noted Sensorium / Orientation: alert Motor Exam: strength 5/5 throughout Psych mental status grossly normal MDM MDM MDM Narrative Medical decision making narrative: Patient was given DuoNeb aerosol prior to arrival. Patient is feeling better after this. Portable chest x-ray was obtained. There is 1 view. On my interpretation, there are chronic changes. There is no acute cardiopulmonary process noted. Bony thorax is normal. Radiologist also interpreted the x-rays and agrees. EKG was obtained. On my interpretation, it showed a normal sinus rhythm with a rate of 75. MI interval, QRS interval, and QTc intervals were all normal. [place] was normal. There are no acute ST or T wave changes. CBC was within normal limits. Comprehensive metabolic profile showed an increased carbon dioxide of greater than 45. This is consistent with prior results. B-natriuretic peptide was obtained and was normal at 54.8. High-sensitivity troponin was normal at 7. COVID-19 rapid antigen was obtained and was negative. Patient was given an albuterol aerosol here. Patient feels better on reevaluation. Patient is maintaining oxygen saturation of 96% on his normal 4 L of oxygen. Patient wants to go home. I offered admission to the hospital. He would like to try going home. Patient was started on prednisone here. Patient states he has aerosols and inhalers at home. Patient was instructed to continue these as prescribed. Patient was instructed to continue his Lasix as prescribed. Patient was instructed return if worse in any way. Patient understood and was agreeable with the plan. All questions were answered. Patient got up to be discharged and his oxygen tank was connected to his tubing. Patient started to desaturate. Patient desaturated down into the 50s. It was determined that his oxygen tank was nearly empty. Patient was placed back on hospital oxygen and his sats slowly began to improve. Patient was still 88% on 6 L nasal cannula. Because of this, patient will be admitted to the hospital. Hospitalist will admit the patient to her service. She requested a flu RSV and influenza swab be obtained. These are ordered. Patient and family understood and were agreeable with the plan. All questions were answered. Lab Data Attestation: I reviewed the patient's lab results. Labs: Laboratory Results - last 24 hr 09/05/21 09/05/21 09/05/21 15:14 15:14 15:14 WBC 10.2 RBC 4.33 L Hgb 12.7 L Hct 42.8 MCV 98.8 H MCH 29.3 MCHC 29.7 L RDW Std Deviation 51.5 H RDW Coeff of Earle 14.1 Plt Count 236 MPV 10.4 Immature Gran % (Auto) 0.400 Neut % (Auto) 79.3 H Lymph % (Auto) 9.5 L [place] % (Auto) 8.7 Eos % (Auto) 1.4 Baso % (Auto) 0.7 Absolute Neuts (auto) 8.1 H Absolute Lymphs (auto) 0.97 Nucleated RBC % 0 Sodium 140 Potassium 4.2 Chloride 94 L Carbon Dioxide > 45.0 H* Anion Gap TNP BUN 24 H Creatinine 0.75 Estim Creat Clear Calc 59.79 Est GFR (MDRD) Af Amer 133 Est GFR (MDRD) Non-Af 110 BUN/Creatinine Ratio 32.1 H Glucose 109 H Calcium 8.4 L Total Bilirubin 0.30 AST 15 ALT 24 Alkaline Phosphatase 76 Troponin I High Sens 7 B-Natriuretic Peptide 54.8 Total Protein 7.7 Albumin 3.3 Globulin 4.4 H Albumin/Globulin Ratio 0.8 L Radiography Chest X-Ray - ED: 1 View, Read by ED Physician, Read by Radiologist, No Acute Disease and Chronic Changes Diagnostic Testing: Clinical Impression(s) from Imaging Studies Chest X-Ray 09/05/21 16:25 IMPRESSION: Chronic interstitial fibrotic changes without new findings or interval change. Electronically Signed: Lenny Mitchell DO at 16:55 EST Reading Location ID and State: [address] [place] [address] Tel [phone], Service support , EKG Initial EKG: Attestation: I personally reviewed and interpreted this EKG as follows: Interpretation: Sinus Rhythm (75) and No Acute Injury Pattern Treatment and Re-Evaluation Vital Sign Attestation:: Vital signs were reviewed prior to admission. Patient still has a mild tachypnea of 22. Remaining vital signs are stable. Discharge Plan Dx/Rx/DC Orders Clinical Impression: COPD with acute exacerbation Disposition Disposition: Acute Care Hospital [facility] Discharge Date/Time: 09/05/21 20:04
--- NOTE | 2021-09-05 16:05 | EKG12_ITS ---
Test Reason : CHEST TIGHTNESS Blood Pressure : / mmHG Vent. Rate : 075 BPM Atrial Rate : 075 BPM P-R Int : 180 ms QRS Dur : 094 ms QT Int : 376 ms P-R-T Axes : 036 025 035 degrees QTc Int : 419 ms Normal sinus rhythm Low voltage QRS Borderline ECG Confirmed by TORI MENDEZ, GAIL ([id number]), editor & co founder [employer] ([id number]) on 09/09/2021 6:57:12 AM Referred By: KIKI/CHELLE Confirmed By:GAIL VALLE MD
[2021-09-05 16:13] LABS: Absolute Lymphocyte Count 0.97 X10^3/uL (0.83-4.51); Absolute Neutrophil Count 8.1 X10^3/uL (2.0-7.7); Basophil# 0.07 X10^3/uL; Basophil% 0.7 % (0-1); Eosinophil# 0.14 X10^3/uL; Eosinophils% 1.4 % (0-5); Hematocrit 42.8 % (40-54); Hemoglobin 12.7 g/dL (13.0-16.5); Lymphocyte # 0.97 X10^3/ul (0.83-4.51); Lymphocyte % 9.5 % (19-41); Mean Corp Hgb Conc 29.7 g/dL (32-36); Mean Corpuscular Hgb 29.3 pg (27.0-32.0); Mean Corpuscular Volume 98.8 fL (80-94); Mean Platelet Vol. 10.4 fl (6.2-12.0); Monocyte# 0.89 X10^3/uL; Monocyte% 8.7 % (0-10); NRBC Flagged by Analyzer 0 % (0-5); Neutrophil # 8.07 X10^3/uL (2.7-7.7); Neutrophil % 79.3 % (47-70); Platelet Count 236 K/mm3 (150-450); RBC Distribution Width CV 14.1 % (11.6-14.6); RBC Distribution Width SD 51.5 fl (35.1-43.9); Red Blood Count 4.33 M/mm3 (4.6-6.2); White Blood Count 10.2 K/mm3 (4.4-11.0)
[2021-09-05] MEDS: Albuterol 2.5 MG/3 ML VIAL.NEB. INHALATION ×2 (16:22→18:54)
--- NOTE | 2021-09-05 16:25 | RAD_ITS ---
STUDY: X-RAY CHEST REASON FOR EXAM: Male, 71 years old. Dyspnea. Shortness of breath family doctor''s office with oxygen saturation at 88%. Sent to ER. TECHNIQUE: Single AP portable view of the chest. COMPARISON: 07/15/2021 FINDINGS: Stable emphysematous and fibrotic changes of lungs. There is no new infiltrate or mass. Continued minimal blunting of left costophrenic angle. Normal size heart. Normal mediastinum and earlene. Normal visualized pulmonary arteries. Normal visualized aortic arch and descending thoracic aorta. Normal visualized thoracic spine. Normal visualized ribs, clavicles, and shoulders. There is no demonstrated abnormality of the visualized soft tissue structures of the upper abdomen. RAD/Chest 1 View (Portable) IMPRESSION: Chronic interstitial fibrotic changes without new findings or interval change. Electronically Signed: Lenny Mitchell DO at 16:55 EST ,
[2021-09-05 16:32] LABS: ALB/GLOB Ratio 0.8 RATIO (0.9-2.4); AST(SGOT) 15 U/L (15-37); Alanine Aminotransfer ALT/SGPT 24 U/L (16-61); Albumin, Serum 3.3 g/dL (3.2-5.0); Alkaline Phosphatase 76 U/L (45-117); BUN 24 mg/dL (7-18); BUN/Creat Ratio 32.1 RATIO (10-20); Calcium,Total 8.4 mg/dL (8.5-10.1); Chloride 94 mmol/L (98-107); Creatinine, Serum 0.75 mg/dL (0.70-1.30); EST Glomerular Filtration Rate 110 mL/min (>60); Est Glom Filt Rate - Afr Amer 133 mL/min (>60); Estimated Creatinine Clearance 59.79 ml/min; Globulin 4.4 g/dL (2.2-4.2); Glucose 109 mg/dL (74-106); Potassium 4.2 mmol/L (3.5-5.1); Protein, Total 7.7 g/dL (6.4-8.2); Sodium Level 140 mmol/L (136-145); Troponin-I HS 7 pg/mL (3.0-78.0)
[2021-09-05 16:47] LABS: BNP,B-Type NATRIURETIC PEPTIDE 54.8 pg/mL (0-100)
[2021-09-05 16:57] LABS: Carbon Dioxide > 45.0 mmol/L (21.0-32.0)
[2021-09-05] MEDS: predniSONE 20 MG Tablet 60 MG PO (18:14)
--- NOTE | 2021-09-05 18:42 | ED.RN ---
Patient attempted to be discharged from ED. Patients home O2 tank empty. SpO2 dropped to 50s. patient currently 6L SpO2 92%. Unable to wean to 4L due to SpO2 being 87%. Patient would like to be admitted to hospital at this time. Dr. Rosales and Dr. Puentes notified. Dr. Rosales at bedside
--- NOTE | 2021-09-05 18:55 | PCM.HP.STD ---
[facility] Date of Service: 09/05/21 Chief Complaint: Shortness of breath [facility] Narrative FARRAH ANDREWS, is a 71 M who presented to the emergency department was coming hospital on 09/05/2021 with worsening shortness of breath that had progressed over the last 2 days. The patient is oxygen dependent at baseline secondary to COPD and wears 4 L chronically. He also has known obstructive sleep apnea and diastolic heart failure. Upon presentation he reports shortness of breath worse with exertion he denies any wheezing or coughing, sputum production, chest pain, nausea, vomiting, diarrhea, or tingling/numbness/weakness. He does state he has bilateral lower extremity edema however this appears to be chronic and he is on Lasix at baseline. He denies any fever or chills as well. On 4 L at rest in the emergency department he was 90% and dropped into the 80s with exertion and therefore the decision for admission was made. His vital signs are otherwise stable. His CBC shows a chronic macrocytic anemia that is mild but is otherwise unremarkable. His CMP shows normal sodium and potassium with a mildly low chloride and a markedly elevated serum bicarbonate at greater than 45 which is about his baseline. His BUN and creatinine are stable and normal. His LFTs are within normal limits. His troponin was negative at 7. A BNP was obtained and found to be 54.8. His EKG shows no acute ST-T wave changes consistent with ischemia. His chest x-ray shows chronic interstitial fibrotic changes without new findings or interval change. In the emergency department he was treated with steroids and aerosols. [facility] Medical History Anemia Asthma Atrial fibrillation Chronic respiratory failure Congestive heart failure (CHF) COPD (chronic obstructive pulmonary disease) CPAP (continuous positive airway pressure) dependence Diastolic CHF, chronic Edema Emphysema, unspecified Former smoker History of atrial fibrillation Injury of head and neck Loose, teeth Morbid obesity due to excess calories Nonrheumatic aortic (valve) insufficiency Obesity (BMI 30-39.9) On home oxygen therapy Positive occult stool blood test Restless legs Secondary pulmonary hypertension Secondary pulmonary hypertension Sleep apnea Stage 4 very severe COPD by GOLD classification Stage 4 very severe COPD by GOLD classification Wears glasses Home Medications finasteride 5 mg PO DAILY 05/05/20 [History Last Taken 09/04/21] ascorbic acid (vitamin C) 500 mg tablet 1,000 mg PO DAILY tab 12/10/20 [History Last Taken 09/05/21] calcium carb-Ca gluc 500 mg calcium-magnesium ox-Mg gluc 250 mg tablet 1 tab PO DAILY tab 07/04/20 [History Last Taken 09/04/21] garlic 600 mg PO DAILY tab 07/04/20 [History Last Taken 09/05/21] tamsulosin 0.4 mg capsule 0.8 mg PO DAILY cap 07/04/20 [History Last Taken 09/04/21] ferrous sulfate 325 mg PO DAILY 10/09/20 [History Last Taken 09/05/21] metoprolol tartrate 25 mg PO BID 10/09/20 [History Last Taken 09/05/21] aspirin 81 mg tablet,delayed release 81 mg PO DAILY 10/24/20 [History Last Taken 09/04/21] omeprazole 20 mg PO QHS 07/15/21 [History Last Taken 09/04/21] albuterol sulfate 90 mcg/actuation aerosol inhaler 2 puff INHALATION Q6H PRN #18 g 08/08/21 [Rx Last Taken 09/05/21] budesonide-formoterol HFA 160 mcg-4.5 mcg/actuation aerosol inhaler 2 puff INHALATION BID #10.2 g 08/18/21 [Rx Last Taken 09/05/21] furosemide [Lasix] 40 mg PO DAILY 09/05/21 [History Last Taken 09/05/21] prednisone 60 mg PO DAILY #15 tablet 09/05/21 [Rx Last Taken Unknown] tiotropium bromide [Spiriva Respimat] 2 inh INHALATION DAILY 09/05/21 [History Last Taken 09/05/21] Allergy/AdvReac Type Severity Reaction Status Date / Time No Known Allergies Allergy Verified 07/15/21 21:42 Family History Mother Cancer stomach Father Heart disease Brother Cancer Surgical History History of surgery of head Hx of cataract surgery Hx of colonoscopy Social History Smoking Status: Former smoker pack-years: 60 Tobacco: How many years used: 30 alcohol intake: never substance use type: does not use caffeine: Yes Type: coffee Number of servings: 4 what type of physical activity do you participate in: none frequency: does not exercise ROS Constitutional Constitutional: Denies anorexia, change in weight, chills, fatigue, fever(s), malaise, night sweats, weakness or other Eyes Eyes: Denies blurry vision, change in eye color, change in vision, discharge from eye(s), double vision, erythema, eye pain, loss of vision or other ENT HEENT: Denies abnormal hearing, dysphagia, ear pain, epistaxis, headache(s), hearing loss, nasal congestion, nasal discharge, post nasal drip, sinus pressure, sore throat or other Cardiovascular Cardiovascular: Reports edema; Denies chest pain, claudication, dyspnea on exertion, lightheadedness, orthopnea, palpitations, paroxysmal nocturnal dyspnea, rapid heart rate, syncope or other Respiratory/Chest Respiratory/Chest: Reports dyspnea, shortness of breath at rest, shortness of breath with exertion and wheezing; Denies cough, excessive phlegm production, hemoptysis, productive cough or other Gastrointestinal Gastrointestinal: Denies abdominal pain, coffee ground emesis, constipation, diarrhea, dyspepsia, hematemesis, hematochezia, loose stools, melena, nausea, vomiting or other Genitourinary Genitourinary: Denies burning urination, difficulty urinating, dysuria, hematuria, nocturia, urinary frequency, urinary hesitancy, urinary incontinence, urinary urgency or other Musculoskeletal Musculoskeletal: Denies arthralgias, back pain, joint pain, joint stiffness, joint swelling, myalgias, neck pain or other Neurologic Neurologic: Denies abnormal gait, abnormal speech, confusion, disequilibrium, dizziness, focal weakness, headache(s), numbness, paresthesias, seizure-like activity, seizures, syncope, tingling, tremor(s) or other Psychiatric Psychiatric: Denies anxiety, depression, homicidal ideation, suicidal ideation or other Endocrine Endocrinology: Denies change in body appearance, cold intolerance, excessive sweating, heat intolerance, polydipsia, polyuria or other Hematologic/Lymphatic Hematologic/Lymphatic: Denies anemia, easy bleeding, easy bruising, lymphadenopathy or other Allergic/Immunologic Allergic/Immunologic: Denies rhinitis, hives, eczemia, asthma or other Vital Signs Vital Signs Vital Signs: 09/05/21 14:55 09/05/21 15:10 09/05/21 15:12 Temperature 97.8 F 98.7 F Temperature Source Temporal Temporal Pulse Rate 72 90 Respiratory Rate 22 H 24 H Respiratory Effort Short of Breath Respiratory Depth Shallow Respiratory Pattern Tachypnea Blood Pressure 127/59 H 99/75 Blood Pressure Mean 81 83 Pulse Ox 99 93 Oxygen Delivery Method Room Air Nasal Cannula Nasal Cannula Oxygen Flow Rate (L/min) 2 09/05/21 16:18 09/05/21 16:23 09/05/21 18:12 Temperature 98.5 F 98 F Temperature Source Temporal Temporal Pulse Rate 67 70 75 Respiratory Rate 19 H 18 22 H Respiratory Effort Respiratory Depth Respiratory Pattern Blood Pressure 112/60 112/60 Blood Pressure Mean 77 77 Pulse Ox 95 95 Oxygen Delivery Method Nasal Cannula Nasal Cannula Oxygen Flow Rate (L/min) 4 Weight Weight: 135.7 kg Body Mass Index (BMI) 49.8 Physical Exam Const alert, oriented x3 and no apparent distress Constitutional Narrative: Morbidly obese white male sitting in the chair at the bedside currently wearing 4 L oxygen with oxygen saturation at 90%, at bedside, patient appears nontoxic and very pleasant no conversational dyspnea General Appearance: cooperative HEENT normocephalic, head/scalp atraumatic and moist oral mucous membranes HEENT Narrative: Mildly hard of hearing, dentition is poor, Mallampati is 3-4, no thrush Eyes PERRL, EOMs intact bilaterally and conjunctivae normal Eyes Narrative: No scleral icterus Neck no lymphadenopathy, supple, no JVD and no carotid bruits Neck Narrative: Neck is short and thick, trachea midline, no thyroid enlargement noted Resp normal respiratory effort, no retractions, no use of accessory muscles and clear to auscultation bilaterally Resp Narrative: Severely diminished diffusely with no adventitious sounds noted Auscultation: Negative for crackles, rales, rhonchi or wheezes Cardio regular rate, regular rhythm, S1 normal heart sound, S2 normal heart sound, no murmurs, no rub, no gallops, no clicks and no JVD GI normal to inspection, nondistended, normoactive bowel sounds, soft to palpation, non-tender and non-distended GI Narrative: Large protuberant abdomen Extremity Extremity Narrative: 1-2+ bilateral lower extremity pitting edema which appears to be chronic in nature, no clubbing or cyanosis noted Peripheral Pulses: Yes pulses 2+ throughout Skin no wounds, skin turgor normal, no jaundice, no petechiae and no mottling Skin Narrative: Bilateral lower extremity skin changes consistent with chronic venous stasis Neuro oriented x3, CN's II-XII intact bilaterally, moves all extremities and no focal motor deficits Sensorium / Orientation: awake and alert Speech: speech normal Motor Exam: strength 5/5 throughout Psych affect normal Psych Narrative: Very pleasant, probe the interactive Results Lab / Micro Data Result Diagrams: 09/05/21 15:14 09/05/21 15:14 Labs: Laboratory Results - last 24 hr 09/05/21 15:14: WBC 10.2, RBC 4.33 L, Hgb 12.7 L, Hct 42.8, MCV 98.8 H, MCH 29.3, MCHC 29.7 L, RDW Std Deviation 51.5 H, RDW Coeff of Earle 14.1, Plt Count 236, MPV 10.4, Immature Gran % (Auto) 0.400, Neut % (Auto) 79.3 H, Lymph % (Auto) 9.5 L, [place] % (Auto) 8.7, Eos % (Auto) 1.4, Baso % (Auto) 0.7, Absolute Neuts (auto) 8.1 H, Absolute Lymphs (auto) 0.97, Nucleated RBC % 0 09/05/21 15:14: Sodium 140, Potassium 4.2, Chloride 94 L, Carbon Dioxide > 45.0 H*, Anion Gap TNP, BUN 24 H, Creatinine 0.75, Estim Creat Clear Calc 59.79, Est GFR (MDRD) Af Amer 133, Est GFR (MDRD) Non-Af 110, BUN/Creatinine Ratio 32.1 H, Glucose 109 H, Calcium 8.4 L, Total Bilirubin 0.30, AST 15, ALT 24, Alkaline Phosphatase 76, Troponin I High Sens 7, Total Protein 7.7, Albumin 3.3, Globulin 4.4 H, Albumin/Globulin Ratio 0.8 L 09/05/21 15:14: B-Natriuretic Peptide 54.8 Micro: Microbiology 09/05/21 15:14 Nasal Secretion SARS-CoV-2 Antigen (Rapid) - Final Radiology Impression Chest X-Ray 09/05/21 16:25 IMPRESSION: Chronic interstitial fibrotic changes without new findings or interval change. Electronically Signed: Lenny Mitchell DO at 16:55 EST Reading Location ID and State: [address] [place] [address] Tel [phone], Service support , Assessment & Plan Assessment/Plan (1) Acute on chronic respiratory failure with hypoxia and hypercapnia: (2) COPD with acute exacerbation: PLAN: Acute hypoxic on chronic hypoxic and hypercapnic respiratory failure secondary to acute exacerbation of COPD -Patient with a markedly elevated baseline serum bicarbonate indicating probable chronic hypercapnia with renal compensation -Aggressive pulmonary toilet with scheduled DuoNebs and as needed albuterol -Old home inhalers at this time -Solu-Medrol 40 every 8 -I-S and Acapella as ordered -Patient without cough or change in sputum production and therefore no need for antibiotics at this time however will monitor clinically -Check RSV and flu panel -Covid is negative YENI -Patient wears CPAP with 9 cm of water at home -Home unit is being brought in by his and CPAP has been ordered Chronic macrocytic anemia -Patient is also on iron supplementation at home -Continue -Hemoglobin is stable -CBC in a.m. Chronic compensated diastolic heart failure -Continue home Lasix COPD Gold stage IV -Hold home inhalers -Patient is on 4 L of nasal cannula baseline -Treatment for exacerbation as noted above BPH -Continue Flomax GERD -Continue omeprazole Hypertension -Continue metoprolol Chronic lower extremity edema -Likely related to secondary pulmonary artery hypertension and diastolic dysfunction -Stable -Continue home Lasix History of atrial fibrillation -Patient is not anticoagulated secondary to previous bleeding -Continue beta-robert Morbid obesity -BMI is 49.8 -Recommend weight loss -Complicates treatment, prognosis, outcomes DVT prophylaxis -Lovenox 40 mg daily -SCDs CODE STATUS -DNR CCA without intubation as per discussion with patient and his in the emergency department Charges/Coding Visit Charges Inpatient E&M: 26775 Init Hosp L3
--- NOTE | 2021-09-05 19:20 | CASEMGMT ---
KALYANI PAYNE Assessment: KALYANI PAYNE to room to meet with patient for initial transition planning/care coordination assessment. KALYANI PAYNE introduced self and role at [facility]. Patient voices understanding and consents to assessment at this time. No visitors present at bedside. Patient is alert and oriented and answers all questions appropriately, sitting upright on ER cart with 6L oxygen per [place]. Care providers, pharmacy, and demographics verified/updated at this time. Admitting Dx: COPD exacerbation PCP: Earle Espinoza Specialists: Pablo- pulmonology, Moodisjeffrey- cardiology Preferred Pharmacy: [facility] Insurance: [employer] Backpack [facility] Prescription Benefit: yes Living Will/HPOA: Patient states he has a living will and HPOA but unsure who was designated as HPOA. Patient made aware these forms are not on file at [facility] and may be brought in to be scanned into record. LNOK: Isela Powers, daughter Yesenia Mcnamara Living Arrangements: Patient lives with in one story house with 2 steps to enter the home with no handrail. Patient states he requires assistance of his for ADLs related to breathing difficulties, fatigues easily. Patient uses walker and electric wheelchair for mobility. Smoking/ETOH: Former smoker, denies ETOH use Transportation: Patient drives self and denies concerns with transportation. 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 DME/HHC/SNF: Patient has walker, electric wheelchair, walk-in tub, grab bars, nebulizer and pulse oximeter at home. Patient has home oxygen (including portable tanks) supplied by [facility] and states ordered at 4LPM continuous. Patient has CPAP with oxygen bled in. Per CM note on 07/16 during previous admission, Windy at [facility] reported oxygen order was for 6LPM continuous. Patient denies previous HHC or SNF stays. Previous hospitalization at [facility] for COPD exacerbation 07/15/2021- 07/18/2021. Patient has no concerns with going home at time of discharge. KALYANI PAYNE spoke with patient about HHC option, patient declines HHC at this time, stating all he needs is the help of his . CM to follow for any discharge planning/needs. Patient voices no concerns/needs at this time. Advised patient to ask for CM if any questions/concerns/needs arise. Voices understanding. Plan: home
[2021-09-05 19:53] LABS: Troponin-I HS 10 pg/mL (3.0-78.0)
[2021-09-05] MEDS: guaiFENesin 1,200 MG Tablet 1200 MG PO (21:55)
[2021-09-05] MEDS: Metoprolol Tartrate 25 MG Tablet PO (21:56)
[2021-09-05] MEDS: Pantoprazole Sodium 20 MG Tablet PO (21:57)
[2021-09-05] MEDS: 0.9% Saline Lock 10 ML Syringe IV (22:00)
[2021-09-05] MEDS: Ipratropium/Albuterol Sulfate 3 ML AMPUL.NEB INHALATION (22:08)
[2021-09-06] VITALS (14 sets, daily range): BP systolic 119–134; BP diastolic 63–88; PULSE 65–92; RESP 18–34; TEMP 36.2–37.2; O2SAT 93–96
[2021-09-06] MEDS: Ipratropium/Albuterol Sulfate 3 ML AMPUL.NEB INHALATION ×6 (02:35→22:49)
[2021-09-06 04:58] LABS: Absolute Lymphocyte Count 0.36 X10^3/uL (0.83-4.51); Absolute Neutrophil Count 8.1 X10^3/uL (2.0-7.7); Basophil# 0.01 X10^3/uL; Basophil% 0.1 % (0-1); Hematocrit 41.3 % (40-54); Hemoglobin 12.3 g/dL (13.0-16.5); Lymphocyte # 0.36 X10^3/ul (0.83-4.51); Lymphocyte % 4.2 % (19-41); Mean Corp Hgb Conc 29.8 g/dL (32-36); Mean Corpuscular Hgb 29.5 pg (27.0-32.0); Mean Platelet Vol. 9.8 fl (6.2-12.0); Monocyte# 0.08 X10^3/uL; Monocyte% 0.9 % (0-10); NRBC Flagged by Analyzer 0 % (0-5); Neutrophil # 8.07 X10^3/uL (2.7-7.7); Neutrophil % 94.3 % (47-70); POSITIVE DIFFERENTIAL YES; Platelet Count 231 K/mm3 (150-450); Red Blood Count 4.17 M/mm3 (4.6-6.2); White Blood Count 8.6 K/mm3 (4.4-11.0)
[2021-09-06 05:04] LABS: Differential Indicated SCAN CRITERIA MET
[2021-09-06] MEDS: 0.9% Saline Lock 10 ML Syringe IV ×2 (05:28→22:56)
[2021-09-06 05:29] LABS: BUN 23 mg/dL (7-18); BUN/Creat Ratio 38.7 RATIO (10-20); Calcium,Total 8.8 mg/dL (8.5-10.1); Carbon Dioxide > 45.0 mmol/L (21.0-32.0); Chloride 93 mmol/L (98-107); EST Glomerular Filtration Rate 143 mL/min (>60); Est Glom Filt Rate - Afr Amer 173 mL/min (>60); Estimated Creatinine Clearance 59.79 ml/min; Glucose 139 mg/dL (74-106); Potassium 4.5 mmol/L (3.5-5.1); Sodium Level 139 mmol/L (136-145)
[2021-09-06 05:33] LABS: Differential Comment SCANNED
[2021-09-06] MEDS: Ascorbic Acid 500 MG Tablet 1000 MG PO (08:51)
[2021-09-06] MEDS: Enoxaparin 40 MG/0.4 ML Syringe SC (08:51)
[2021-09-06] MEDS: Furosemide 40 MG Tablet PO (08:52)
[2021-09-06] MEDS: Ferrous Sulfate 325 MG Tablet PO (08:52)
[2021-09-06] MEDS: Tamsulosin HCl 0.4 MG Capsule 0.8 MG PO (08:52)
[2021-09-06] MEDS: Aspirin E.C. 81 MG Tablet PO (08:52)
[2021-09-06] MEDS: Finasteride 5 MG Tablet PO (08:53)
[2021-09-06] MEDS: Metoprolol Tartrate 25 MG Tablet PO ×2 (08:53→22:55)
[2021-09-06] MEDS: guaiFENesin 1,200 MG Tablet 1200 MG PO ×2 (08:53→22:56)
--- NOTE | 2021-09-06 11:06 | PCM.PN.HOSP ---
Subjective Subjective Patient states he is feeling better overall. He did have one episode of desaturation in the 70s while he was on his CPAP last night but that resolved quickly and he is back on 6 L nasal cannula with oxygen saturations anywhere from 95 to 99%. I have discussed this with nursing and they are going to attempt to wean him today to his baseline oxygen. There appears to be some discrepancy what this is supposed to be. He states he has been on 4 L but our documentation from previous admission indicates he is supposed to be on 6 L. Objective Data Objective Data Vital Signs: Vital Signs Temp Pulse Resp BP Pulse Ox 97.7 F L 68 20 H 124/67 H 94 09/06/21 08:50 09/06/21 10:28 09/06/21 10:28 09/06/21 08:50 09/06/21 10:33 Oxygen Flow Rate (L/min) 4 Oxygen Delivery Method Nasal Cannula Weight: 133.1 kg Body Mass Index (BMI) 47.2 Intake & Output: Intake and Output for Last 24 Hours 09/04/21 09/05/21 09/06/21 23:59 23:59 23:59 Intake Total 500 / 500 Balance 500 / 500 Lab / Micro Data Result Diagrams: 09/06/21 04:31 09/06/21 04:31 Labs: Laboratory Results - last 24 hr 09/05/21 15:14: WBC 10.2, RBC 4.33 L, Hgb 12.7 L, Hct 42.8, MCV 98.8 H, MCH 29.3, MCHC 29.7 L, RDW Std Deviation 51.5 H, RDW Coeff of Earle 14.1, Plt Count 236, MPV 10.4, Immature Gran % (Auto) 0.400, Neut % (Auto) 79.3 H, Lymph % (Auto) 9.5 L, [place] % (Auto) 8.7, Eos % (Auto) 1.4, Baso % (Auto) 0.7, Absolute Neuts (auto) 8.1 H, Absolute Lymphs (auto) 0.97, Nucleated RBC % 0 09/05/21 15:14: Sodium 140, Potassium 4.2, Chloride 94 L, Carbon Dioxide > 45.0 H*, Anion Gap TNP, BUN 24 H, Creatinine 0.75, Estim Creat Clear Calc 59.79, Est GFR (MDRD) Af Amer 133, Est GFR (MDRD) Non-Af 110, BUN/Creatinine Ratio 32.1 H, Glucose 109 H, Calcium 8.4 L, Total Bilirubin 0.30, AST 15, ALT 24, Alkaline Phosphatase 76, Troponin I High Sens 7, Total Protein 7.7, Albumin 3.3, Globulin 4.4 H, Albumin/Globulin Ratio 0.8 L 09/05/21 15:14: B-Natriuretic Peptide 54.8 09/05/21 19:03: Troponin I High Sens 10 09/06/21 04:31: WBC 8.6, RBC 4.17 L, Hgb 12.3 L, Hct 41.3, MCV 99.0 H, MCH 29.5, MCHC 29.8 L, RDW Std Deviation 52.0 H, RDW Coeff of Earle 14.0, Plt Count 231, MPV 9.8, Immature Gran % (Auto) 0.500, Neut % (Auto) 94.3 H, Lymph % (Auto) 4.2 L, [place] % (Auto) 0.9, Eos % (Auto) 0.0, Baso % (Auto) 0.1, Absolute Neuts (auto) 8.1 H, Absolute Lymphs (auto) 0.36 L, Nucleated RBC % 0, Differential Comment SCANNED 09/06/21 04:31: Sodium 139, Potassium 4.5, Chloride 93 L, Carbon Dioxide > 45.0 H*, Anion Gap TNP, BUN 23 H, Creatinine 0.60 L, Estim Creat Clear Calc 59.79, Est GFR (MDRD) Af Amer 173, Est GFR (MDRD) Non-Af 143, BUN/Creatinine Ratio 38.7 H, Glucose 139 H, Calcium 8.8 Micro: Microbiology 09/05/21 18:50 Mucosa - Nasopharyngeal Influenza Types A,B Direct FA (CHIP) - Final 09/05/21 15:14 Nasal Secretion SARS-CoV-2 Antigen (Rapid) - Final Radiography Diagnostic Testing: Radiology Impression Chest X-Ray 09/05/21 16:25 IMPRESSION: Chronic interstitial fibrotic changes without new findings or interval change. Electronically Signed: Lenny Mitchell DO at 16:55 EST Reading Location ID and State: [address] [place] [address] Tel [phone], Service support , Physical Exam Const alert, oriented x3 and no apparent distress Constitutional Narrative: Morbidly obese white male sitting in the chair at the bedside currently wearing 6 L oxygen with oxygen saturation at 90%, eating breakfast and watching television, patient appears nontoxic and very pleasant no conversational dyspnea General Appearance: cooperative Exam Limitations: no limitations Nutritional Appearance: morbidly obese HEENT normocephalic, head/scalp atraumatic and moist oral mucous membranes HEENT Narrative: Mallampati is 3-4, no thrush Head and Scalp: normocephalic Resp normal respiratory effort, no retractions, no use of accessory muscles and clear to auscultation bilaterally Resp Narrative: Severely diminished diffusely with no adventitious sounds noted Auscultation: Negative for crackles, rales, rhonchi or wheezes Cardio regular rate, regular rhythm, S1 normal heart sound, S2 normal heart sound, no murmurs, no rub, no gallops, no clicks and no JVD GI normal to inspection, nondistended, normoactive bowel sounds, soft to palpation, non-tender and non-distended GI Narrative: Large protuberant abdomen Extremity Extremity Narrative: 1-2+ bilateral lower extremity pitting edema which appears to be chronic in nature, no clubbing or cyanosis noted Peripheral Pulses: Yes pulses 2+ throughout Neuro oriented x3, moves all extremities and no focal motor deficits Sensorium / Orientation: awake and alert Speech: speech normal Assessment & Plan Assessment/Plan (1) Acute on chronic respiratory failure with hypoxia and hypercapnia: (2) COPD with acute exacerbation: PLAN: Acute hypoxic on chronic hypoxic and hypercapnic respiratory failure secondary to acute exacerbation of COPD -Patient with a markedly elevated baseline serum bicarbonate indicating probable chronic hypercapnia with renal compensation -Aggressive pulmonary toilet with scheduled DuoNebs and as needed albuterol -Hold home inhalers at this time -Continue Solu-Medrol 40 every 8 -I-S and Acapella as ordered -Patient without cough or change in sputum production and therefore no need for antibiotics at this time however will monitor clinically -RSV and flu panels are negative -Covid is negative -Possible discharge tomorrow if patient remains stable YENI -Patient wears CPAP with 9 cm of water at home -Continue utilization of home unit -Patient did have desaturation last evening while on his CPAP into the 70s--> she was working appropriately -Would recommend the consideration of repeat polysomnography as an outpatient as patient may be benefit fitted by BiPAP -Patient did just meet with pulmonary on 07/14/2021 appears he will have a follow-up in [address] Shah Chronic macrocytic anemia -Patient is also on iron supplementation at home -Continue -Hemoglobin is stable -CBC in a.m. Chronic compensated diastolic heart failure -Continue home Lasix COPD Gold stage IV -Hold home inhalers -Patient is on 4 L of nasal cannula baseline -Treatment for exacerbation as noted above -Follows with Dr. Shah as an outpatient -Oxygen saturations 88 to 92% are okay given his chronic hypercapnia BPH -Continue Flomax GERD -Continue omeprazole Hypertension -Continue metoprolol Chronic lower extremity edema -Likely related to secondary pulmonary artery hypertension and diastolic dysfunction -Stable -Continue home Lasix History of atrial fibrillation -Patient is not anticoagulated secondary to previous bleeding -Continue beta-robert Morbid obesity -BMI is 49.8 -Recommend weight loss -Complicates treatment, prognosis, outcomes DVT prophylaxis -Lovenox 40 mg daily -SCDs CODE STATUS -DNR CCA without intubation as per discussion with patient and his in the emergency department Charges/Coding Visit Charges Inpatient E&M: 57225 Subs Hosp L2
--- NOTE | 2021-09-06 11:53 | CASEMGMT ---
Pt qualifies for palliative referral via palliative screening tool and Dr. Rosales agreeable. Order placed and referral e-mailed. Carmella AUGUSTE CM
[2021-09-06] MEDS: Pantoprazole Sodium 20 MG Tablet PO (22:56)
[2021-09-07] VITALS (10 sets, daily range): BP systolic 126–151; BP diastolic 7–82; PULSE 65–96; RESP 20–26; TEMP 36.5–36.6; O2SAT 91–98
[2021-09-07] MEDS: Ipratropium/Albuterol Sulfate 3 ML AMPUL.NEB INHALATION ×2 (03:58→11:16)
[2021-09-07] MEDS: 0.9% Saline Lock 10 ML Syringe IV ×2 (05:22→09:43)
[2021-09-07 06:56] LABS: Absolute Lymphocyte Count 0.49 X10^3/uL (0.83-4.51); Absolute Neutrophil Count 12.4 X10^3/uL (2.0-7.7); Basophil# 0.01 X10^3/uL; Basophil% 0.1 % (0-1); Hematocrit 41.6 % (40-54); Hemoglobin 12.6 g/dL (13.0-16.5); Lymphocyte # 0.49 X10^3/ul (0.83-4.51); Lymphocyte % 3.7 % (19-41); Mean Corp Hgb Conc 30.3 g/dL (32-36); Mean Corpuscular Hgb 29.4 pg (27.0-32.0); Mean Platelet Vol. 10.3 fl (6.2-12.0); Monocyte# 0.37 X10^3/uL; Monocyte% 2.8 % (0-10); NRBC Flagged by Analyzer 0 % (0-5); Neutrophil # 12.37 X10^3/uL (2.7-7.7); Neutrophil % 92.7 % (47-70); POSITIVE DIFFERENTIAL YES; Platelet Count 262 K/mm3 (150-450); RBC Distribution Width CV 14.1 % (11.6-14.6); Red Blood Count 4.29 M/mm3 (4.6-6.2); White Blood Count 13.3 K/mm3 (4.4-11.0)
[2021-09-07 07:03] LABS: Differential Indicated SCAN CRITERIA MET
[2021-09-07 07:29] LABS: Anion Gap 2 (5-15); BUN 26 mg/dL (7-18); BUN/Creat Ratio 32.6 RATIO (10-20); Calcium,Total 8.6 mg/dL (8.5-10.1); Chloride 91 mmol/L (98-107); EST Glomerular Filtration Rate 102 mL/min (>60); Est Glom Filt Rate - Afr Amer 123 mL/min (>60); Estimated Creatinine Clearance 74.74 ml/min; Glucose 178 mg/dL (74-106); Potassium 4.3 mmol/L (3.5-5.1); Sodium Level 135 mmol/L (136-145)
[2021-09-07 07:46] LABS: Basophilic Stippling RARE; Hypochromasia RARE; Platelet Estimate ADEQUATE (ADEQ)
[2021-09-07] MEDS: Metoprolol Tartrate 25 MG Tablet PO (08:22)
[2021-09-07] MEDS: Enoxaparin 40 MG/0.4 ML Syringe SC (08:22)
[2021-09-07] MEDS: guaiFENesin 1,200 MG Tablet 1200 MG PO (08:22)
[2021-09-07] MEDS: Furosemide 40 MG Tablet PO (08:23)
[2021-09-07] MEDS: Ascorbic Acid 500 MG Tablet 1000 MG PO (08:24)
[2021-09-07] MEDS: Aspirin E.C. 81 MG Tablet PO (08:24)
[2021-09-07] MEDS: Ferrous Sulfate 325 MG Tablet PO (08:24)
[2021-09-07] MEDS: Tamsulosin HCl 0.4 MG Capsule 0.8 MG PO (08:24)
[2021-09-07] MEDS: Finasteride 5 MG Tablet PO (08:25)
[2021-09-07] MEDS: Furosemide 40 MG/4 ML Vial IV (09:43)
--- NOTE | 2021-09-07 11:28 | DS.PCM_ITS ---
Providers Date of Admission: 09/05/21 Primary Care Physician: Dr. Earle Espinoza MD Reason For Visit: ACUTE HYPOXIC ON CHRONIC HYPOXIC AND Diagnosis Discharge Diagnosis (1) Acute on chronic respiratory failure with hypoxia and hypercapnia: Status: Chronic Code(s): J96.21 - Acute and chronic respiratory failure with hypoxia; J96.22 - Acute and chronic respiratory failure with hypercapnia (2) COPD with acute exacerbation: Status: Chronic Code(s): J44.1 - Chronic obstructive pulmonary disease with (acute) exacerbation Medications at Discharge Home Medications finasteride 5 mg PO DAILY 05/05/20 ascorbic acid (vitamin C) 500 mg tablet 1,000 mg PO DAILY tab 07/04/20 calcium carb-Ca gluc 500 mg calcium-magnesium ox-Mg gluc 250 mg tablet 1 tab PO DAILY tab 07/04/20 garlic 600 mg PO DAILY tab 07/04/20 tamsulosin 0.4 mg capsule 0.8 mg PO DAILY cap 07/04/20 ferrous sulfate 325 mg PO DAILY 10/09/20 metoprolol tartrate 25 mg PO BID 10/09/20 aspirin 81 mg tablet,delayed release 81 mg PO DAILY 10/24/20 omeprazole 20 mg PO QHS 07/15/21 albuterol sulfate 90 mcg/actuation aerosol inhaler 2 puff INHALATION Q6H PRN #18 g 08/08/21 budesonide-formoterol HFA 160 mcg-4.5 mcg/actuation aerosol inhaler 2 puff INHALATION BID #10.2 g 08/18/21 Spiriva Respimat 2 inh INHALATION DAILY 09/05/21 furosemide [Lasix] 40 mg PO BID #60 tab 09/07/21 prednisone 10 mg PO DAILY #40 tab 09/07/21 Hospital Course Operations None Procedures None Summary of Care Provided Minutes Spent on Discharge: 41 Hospital Course: Mr. Powers is a 71-year-old male who presented the emergency department at [facility] on 09/05/2021 with worsening shortness of breath that had progressively gotten worse over the 2 days prior to presentation. He is oxygen dependent at baseline secondary to COPD Gold stage IV and wears 4 to 5 L chronically. Upon presentation he reported shortness of breath that was worse with exertion. He denied any wheezing or coughing, sputum production, chest pain, no Z, vomiting, diarrhea, or tingling/numbness/weakness. He did report he has chronic bilateral lower extremity edema that he felt was a little bit worse and felt that he had some increased abdominal swelling as well. He indicated his Lasix had not been working as well at home and had not been as reliable as it had been previously. In the emergency department he was on his baseline 4 L at rest and dropped into the 80s with exertion therefore they recommended admission. His vital signs were otherwise stable. His CBC was overall unimpressive. His CMP showed a normal sodium and potassium with a mildly low chloride and a markedly elevated serum bicarbonate that is his baseline. His BUN and creatinine were stable and his LFTs were within normal limits. A tropon in was obtained and found to be 7. A BNP was obtained on admission and found to be 54.8. His EKG showed no acute ST-T wave changes consistent with ischemia and his chest x-ray showed only chronic interstitial fibrotic changes without new findings. In the emergency department he was given oral steroids and aerosols. We admitted him to the medical floor and treated him with IV steroids, aggressive pulmonary toilet, incentive spirometry and Acapella, and his home CPAP. It was noted he had some oxygen desaturations at night while he was on his CPAP and I did discuss with this patient and recommended a repeat outpatient polysomnography. I do question whether or not he would be benefit fitting from BiPAP rather than CPAP however he does follow with Dr. Shah and has appointment with him soon. And RSV, flu, and Covid test was assessed and were all were negative. He was given IV Lasix 40 mg IV push x2 and his home dose was increased from 40 mg daily to 40 mg twice daily. I did discuss with him the importance of obtaining a follow-up BMP within the next 3 to 5 days after discharge to reassess his renal function and his potassium given the increased dose in his Lasix. I suspect his oral Lasix was not working as well for him at home secondary to some mild volume overload with decreased absorption secondary to bowel wall edema. He will be followed up with palliative care after discharge given his severe lung disease at baseline in the hopes that they can help with symptom management and control as an outpatient. We did instruct him to follow-up with his PCP in the next week if able and Dr. Shah as scheduled. He was able to be discharged home in stable condition on 09/07/2021. Discharge diagnoses: Acute hypoxic on chronic hypoxic and hypercapnic respiratory failure Acute exacerbation of COPD Acute on chronic diastolic heart failure YENI Chronic macrocytic anemia COPD Gold stage IV BPH GERD Hypertension Chronic lower extremity edema Pulmonary artery hypertension who group 3 Paroxysmal atrial fibrillation Morbid obesity Physical Exam Const alert, oriented x3 and no apparent distress Constitutional Narrative: Morbidly obese white male sitting in the chair at the bedside currently wearing 4 L oxygen with oxygen saturation at 95-97%, standing up at the edge of the bed after just having gone to the bathroom, mildly dyspneic but recovering General Appearance: cooperative, comfortable, well kempt and well developed Orientation / Consciousness: awake Exam Limitations: no limitations Nutritional Appearance: morbidly obese HEENT normocephalic, head/scalp atraumatic and moist oral mucous membranes HEENT Narrative: Hard of hearing, Mallampati is 3, no thrush Eyes PERRL, EOMs intact bilaterally and conjunctivae normal Eyes Narrative: No scleral icterus Neck no lymphadenopathy, supple, no JVD and no carotid bruits Neck Narrative: Neck is short and thick, trachea midline, no thyroid enlargement noted Resp normal respiratory effort, no retractions, no use of accessory muscles and clear to auscultation bilaterally Resp Narrative: Severely diminished diffusely with no adventitious sounds noted Auscultation: Negative for crackles, rales, rhonchi or wheezes Cardio regular rate, regular rhythm, S1 normal heart sound, S2 normal heart sound, no murmurs, no rub, no gallops, no clicks and no JVD GI normal to inspection, nondistended, normoactive bowel sounds, soft to palpation, non-tender and non-distended GI Narrative: Large protuberant abdomen Extremity Extremity Narrative: 1-2+ bilateral lower extremity pitting edema, no clubbing or cyanosis noted Skin no wounds, skin turgor normal, no jaundice, no petechiae and no mottling Skin Narrative: Bilateral lower extremity skin changes consistent with chronic venous stasis Neuro oriented x3, moves all extremities and no focal motor deficits Sensorium / Orientation: awake and alert Speech: speech normal Motor Exam: strength 5/5 throughout Psych affect normal Psych Narrative: Very pleasant Weight / BMI Weight Weight: 133.2 kg Body Mass Index (BMI) 47.2 ABG / Lab / Microbiology Data Result Diagrams: 09/07/21 06:35 09/07/21 06:35 Laboratory: Laboratory Results - last 24 hr 09/07/21 06:35: WBC 13.3 H, RBC 4.29 L, Hgb 12.6 L, Hct 41.6, MCV 97.0 H, MCH 29.4, MCHC 30.3 L, RDW Std Deviation 50.0 H, RDW Coeff of Earle 14.1, Plt Count 262, MPV 10.3, Immature Gran % (Auto) 0.700, Neut % (Auto) 92.7 H, Lymph % (Auto) 3.7 L, [place] % (Auto) 2.8, Eos % (Auto) 0.0, Baso % (Auto) 0.1, Absolute Neuts (auto) 12.4 H, Absolute Lymphs (auto) 0.49 L, Nucleated RBC % 0, Platelet Estimate ADEQUATE, Hypochromasia RARE, Basophilic Stippling RARE 09/07/21 06:35: Sodium 135 L, Potassium 4.3, Chloride 91 L, Carbon Dioxide 42.0 H, Anion Gap 2 L, BUN 26 H, Creatinine 0.80, Estim Creat Clear Calc 74.74, Est GFR (MDRD) Af Amer 123, Est GFR (MDRD) Non-Af 102, BUN/Creatinine Ratio 32.6 H, Glucose 178 H, Calcium 8.6 Microbiology: Microbiology 09/05/21 18:50 Mucosa - Nasopharyngeal Influenza Types A,B Direct FA (CHIP) - Final 09/05/21 15:14 Nasal Secretion SARS-CoV-2 Antigen (Rapid) - Final D/C Instructions Discharge Diet: Low fat / Low cholesterol, 8 Cup Fluid Restriction and 2000 mg Sodium Diet Discharge Activity: Return to Normal Activity Return to work on: 09/10/21 Meaningful Use Info Meaningful Use Diagnoses (Choose all that apply): None applicable Discharge Plan Admission Admit Date/Time: 09/05/21 18:59 Primary Reason for Your Visit: Shortness of Breath Attending Provider: Nahomi Rosales Primary Care Provider: Earle Espinoza Instructions Additional Instructions / Restrictions: 1. Note change in Lasix dose 2. Please call primary care doctor for follow-up basic metabolic profile to assess kidney function and potassium within the next 3 to 5 days given changes in Lasix at home Discharge Orders/Prescriptions Prescriptions: New prednisone 10 mg tablet 10 mg PO DAILY Qty: 40 RF: 0 furosemide [Lasix] 40 mg tablet 40 mg PO BID Qty: 60 RF: 0 Continued Calcium Magnesium 500 mg calcium -250 mg tablet 1 tab PO DAILY RF: 0 garlic Tablet 600 mg PO DAILY RF: 0 ascorbic acid (vitamin C) 500 mg tablet 1,000 mg PO DAILY RF: 0 aspirin [Adult Low Dose Aspirin] 81 mg tablet,delayed release (DR/EC) 81 mg PO DAILY RF: 0 tamsulosin 0.4 mg capsule 0.8 mg PO DAILY RF: 0 finasteride 5 MG tablet 5 mg PO DAILY RF: 0 ferrous sulfate 325 MG tablet 325 mg PO DAILY RF: 0 metoprolol tartrate 25 MG tablet 25 mg PO BID RF: 0 omeprazole 20 mg capsule,delayed release(DR/EC) 20 mg PO QHS RF: 0 Spiriva Respimat 2.5 mcg/actuation mist 2 inh INHALATION DAILY RF: 0 albuterol sulfate 90 mcg/actuation HFA aerosol inhaler 2 puff INHALATION Q6H PRN (Reason: shortness of breath or wheezing) Qty: 18 RF: 3 budesonide-formoterol 160-4.5 mcg/actuation HFA aerosol inhaler 2 puff INHALATION BID Qty: 10.2 RF: 6 Discontinued furosemide [Lasix] 20 mg tablet 40 mg PO DAILY RF: 0 Referrals / Follow Up: Earle Espinoza MD [Primary Care Provider] - 5-7 Days Disposition Disposition (needs filled in before D/C Order can be placed): Home, Self Care Charges/Coding Visit Charges Inpatient E&M: 94125 Disch Hosp
== END 2021-09-07 11:43 | disposition home or self-care (01) | DRG 190 ==
LOC: ED 19:22 → MS3 19:25
PROVIDERS: Admitting Provider Internal Medicine; Emergency Provider Emergency Medicine; PCP Family Medicine; Visit Provider Internal Medicine
DX: J44.1 Chronic obstructive pulmonary disease with (acute) exacerbation (principal); I50.33 Acute on chronic diastolic (congestive) heart failure; J96.21 Acute and chronic respiratory failure with hypoxia; J96.22 Acute and chronic respiratory failure with hypercapnia; Z68.42 Body mass index [BMI] 45.0-49.9, adult; I27.23 Pulmonary hypertension due to lung diseases and hypoxia; I11.0 Hypertensive heart disease with heart failure; I48.0 Paroxysmal atrial fibrillation; E66.01 Morbid (severe) obesity due to excess calories; K21.9 Gastro-esophageal reflux disease without esophagitis; G47.33 Obstructive sleep apnea (adult) (pediatric); D53.9 Nutritional anemia, unspecified; N40.0 Benign prostatic hyperplasia without lower urinary tract symptoms; Z66 Do not resuscitate; Z99.81 Dependence on supplemental oxygen; Z79.82 Long term (current) use of aspirin; Z79.899 Other long term (current) drug therapy; Z87.891 Personal history of nicotine dependence
CPT/HCPCS: 36415; 71045; 80048; 80053; 83880; 84484; 85025; 87426; 87804; 93005; 94640; 94667; 94668; 94762; 97162; 97530; 97802; 99251; 99285; A4216; G0463; J1940

== ENCOUNTER 2021-09-09 16:50 | Outpatient (CLI) | payer MEDICARE, SELFPAY ==
[2021-09-09 18:27] LABS: Anion Gap 2 (5-15); BUN 30 mg/dL (7-18); BUN/Creat Ratio 43.5 RATIO (10-20); Calcium,Total 8.3 mg/dL (8.5-10.1); Chloride 92 mmol/L (98-107); Creatinine, Serum 0.69 mg/dL (0.70-1.30); EST Glomerular Filtration Rate 120 mL/min (>60); Est Glom Filt Rate - Afr Amer 146 mL/min (>60); Glucose 134 mg/dL (74-106); Potassium 4.4 mmol/L (3.5-5.1); Sodium Level 139 mmol/L (136-145)
== END 2021-09-09 23:59 | disposition home or self-care (01) ==
LOC: MFPLAB 16:55
PROVIDERS: PCP Family Medicine; Referring Provider Registered Nurse; Visit Provider Registered Nurse
DX: J96.10 Chronic respiratory failure, unspecified whether with hypoxia or hypercapnia (principal)
CPT/HCPCS: 36415; 80048

== ENCOUNTER 2021-10-14 15:06 | Emergency (ER) | payer MEDICARE, SELFPAY ==
[2021-10-14] VITALS (7 sets, daily range): BP systolic 109; BP diastolic 74; PULSE 79–84; RESP 12–30; TEMP 36.2; O2SAT 57–99; BMI 46.7
--- NOTE | 2021-10-14 15:27 | ED.VIS.DYS ---
HPI History of Present Illness Chief Complaint: Shortness of Breath Informant: patient Onset/Context/Timing Onset: Days Context: gradual Timing: Continuous Quality: Positive for Dyspnea on exertion Worsened by: Exertion Relieved by: Rest Associated Symptoms Negative for cough, rhinorrhea, ear pain, fever, sore throat, chills, sweats, clear sputum, white sputum, yellow sputum or green sputum Chest Pain: Positive for Dull Narrative Narrative: Patient presents with shortness of breath that has been getting worse over the past couple days. Patient has a history of COPD. Patient states his breathing is worse with any exertion. Patient states it is better with rest. Patient denies any orthopnea. Patient denies any cough. Patient denies any fevers or chills. Patient denies any sore throat or rhinorrhea. Patient admits to some dull pain in his chest. Patient also admits to some swelling of his lower legs. Patient denies any PE risk factors. PE Risk Factors: Negative for Cancer, OCP + Smoking + > 35, Prior DVT or PE, Recent immobilization, Recent surgery and Recent travel [facility] Medical History Acute on chronic respiratory failure with hypoxia and hypercapnia Anemia Asthma Atrial fibrillation Chronic respiratory failure Congestive heart failure (CHF) COPD (chronic obstructive pulmonary disease) CPAP (continuous positive airway pressure) dependence Diastolic CHF, chronic Edema Emphysema, unspecified Former smoker History of atrial fibrillation Injury of head and neck Loose, teeth Morbid obesity due to excess calories Nonrheumatic aortic (valve) insufficiency Obesity (BMI 30-39.9) On home oxygen therapy Positive occult stool blood test Restless legs Secondary pulmonary hypertension Secondary pulmonary hypertension Sleep apnea Stage 4 very severe COPD by GOLD classification Stage 4 very severe COPD by GOLD classification Wears glasses Home Medications finasteride 5 mg PO DAILY 05/05/20 [History Last Taken 09/04/21] ascorbic acid (vitamin C) 500 mg tablet 1,000 mg PO DAILY tab 07/04/20 [History Last Taken 09/05/21] calcium carb-Ca gluc 500 mg calcium-magnesium ox-Mg gluc 250 mg tablet 1 tab PO DAILY tab 07/04/20 [History Last Taken 09/04/21] garlic 600 mg PO DAILY tab 07/04/20 [History Last Taken 09/05/21] tamsulosin 0.4 mg capsule 0.8 mg PO DAILY cap 12/10/20 [History Last Taken 09/04/21] ferrous sulfate 325 mg PO DAILY 10/09/20 [History Last Taken 09/05/21] metoprolol tartrate 25 mg PO BID 10/09/20 [History Last Taken 09/05/21] aspirin 81 mg tablet,delayed release 81 mg PO DAILY 10/24/20 [History Last Taken 09/04/21] omeprazole 20 mg PO QHS 07/15/21 [History Last Taken 09/04/21] albuterol sulfate 90 mcg/actuation aerosol inhaler 2 puff INHALATION Q6H PRN #18 g 08/08/21 [Rx Last Taken 09/05/21] Spiriva Respimat 2 inh INHALATION DAILY 09/05/21 [History Last Taken 09/05/21] furosemide [Lasix] 40 mg PO BID #60 tab 09/07/21 [Rx Last Taken Unknown] prednisone 10 mg PO DAILY #63 tab 10/14/21 [Rx Last Taken Unknown] Allergy/AdvReac Type Severity Reaction Status Date / Time No Known Allergies Allergy Verified 10/14/21 15:09 Family History Mother Cancer stomach Father Heart disease Brother Cancer Surgical History History of surgery of head Hx of cataract surgery Hx of colonoscopy Social History Smoking Status: Former smoker pack-years: 60 Tobacco: How many years used: 30 alcohol intake: never substance use type: does not use caffeine: Yes Type: coffee Number of servings: 4 what type of physical activity do you participate in: none frequency: does not exercise ROS ROS ED Constitutional Constitutional ED: Denies chills or fever(s) Eyes Eyes: Denies blurry vision or change in vision ENT ENT ED: Denies rhinorrhea or sore throat Cardiovascular Cardiovascular: Reports chest pain; Denies palpitations Respiratory/Chest Respiratory/Chest: Reports dyspnea; Denies cough Gastrointestinal Gastrointestinal: Denies nausea or vomiting Genitourinary Genitourinary ED: Denies dysuria or hematuria Musculoskeletal Musculoskeletal: Reports neck pain; Denies back pain Integumentary Denies abscess or rash Neurologic Neurologic: Denies headache(s) or weakness Allergic/Immunologic Allergic/Immunologic ED: Denies mouth swelling or urticaria EXAM Physical Exam Const Vital Signs: 10/14/21 15:06 10/14/21 15:08 10/14/21 15:16 Temperature 97.2 F L Temperature Source Temporal Pulse Rate 84 80 Respiratory Rate 30 H 22 H 20 H Respiratory Effort Respiratory Depth Respiratory Pattern Blood Pressure 109/74 Blood Pressure Mean 85 Pulse Ox 57 95 99 Oxygen Delivery Method Nasal Cannula Non-Rebreather Nasal Cannula Oxygen Flow Rate (L/min) 4 15 5 10/14/21 15:22 10/14/21 15:56 10/14/21 16:17 Temperature Temperature Source Pulse Rate 79 84 Respiratory Rate 12 20 H Respiratory Effort Short of Breath Respiratory Depth Shallow Respiratory Pattern Tachypnea Normal Blood Pressure Blood Pressure Mean Pulse Ox 97 Oxygen Delivery Method Nasal Cannula Nasal Cannula Oxygen Flow Rate (L/min) 5 5 Positive well nourished, well developed and obese General Appearance ED: well developed and NAD Nutritional Appearance: obese HEENT Reports moist mucous membranes atraumatic Neck supple and no JVD Resp normal respiratory effort Auscultation: diminished lung sounds diffuse Cardio regular rate and regular rhythm GI non-tender and non-distended Auscultation: normoactive bowel sounds Palpation: soft Extremity Extremity Narrative: There is 2+ edema of the lower extremities bilaterally. General Extremety ED: Yes edema; Negative for tenderness General Extremity: edema Neuro oriented x3, CN's II-XII intact bilaterally and no sensory deficits noted Sensorium / Orientation: alert Motor Exam: strength 5/5 throughout Psych mental status grossly normal MDM MDM MDM Narrative Medical decision making narrative: EKG was obtained. On my interpretation, it showed a normal sinus rhythm with a first-degree AV block with a rate of 78. QRS interval and QTc intervals were normal. [place] was normal. There are no acute ST or T wave changes. Portable 1 view chest x-ray was obtained. On my interpretation, lung mcclure show blunting of the costophrenic angles bilaterally. There is some pleural scarring noted. There is normal cardiac silhouette. Bony thorax is normal. There is no acute process noted. Radiologist also interpreted the x-ray and agrees. CBC was essentially within normal limits. Comprehensive metabolic profile was within normal limits. High-sensitivity troponin was normal at 4. BNP was normal at 57.3. COVID-19 rapid antigen was obtained and was negative. Patient was given a DuoNeb aerosol here. Patient feels better after this. Patient was advised of his findings. Patient was given a prescription for a tapering dose of prednisone. 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 Patient understood and was agreeable with the plan. All questions were answered. Lab Data Attestation: I reviewed the patient's lab results. Labs: Laboratory Results - last 24 hr 10/14/21 10/14/21 10/14/21 15:40 15:40 15:40 WBC 10.8 RBC 4.27 L Hgb 12.5 L Hct 40.9 MCV 95.8 H MCH 29.3 MCHC 30.6 L RDW Std Deviation 48.1 H RDW Coeff of Earle 13.5 Plt Count 258 MPV 9.7 Immature Gran % (Auto) 0.600 Neut % (Auto) 76.0 H Lymph % (Auto) 12.7 L [place] % (Auto) 8.3 Eos % (Auto) 1.8 Baso % (Auto) 0.6 Absolute Neuts (auto) 8.2 H Absolute Lymphs (auto) 1.37 Nucleated RBC % 0 Sodium 137 Potassium 4.0 Chloride 93 L Carbon Dioxide 42.0 H Anion Gap 2 L BUN 20 H Creatinine 0.70 Estim Creat Clear Calc 59.79 Est GFR (MDRD) Af Amer 143 Est GFR (MDRD) Non-Af 118 BUN/Creatinine Ratio 28.5 H Glucose 164 H Calcium 9.0 Total Bilirubin 0.40 AST 24 ALT 21 Alkaline Phosphatase 77 Troponin I High Sens 4 B-Natriuretic Peptide 57.3 Total Protein 7.7 Albumin 3.2 Globulin 4.5 H Albumin/Globulin Ratio 0.7 L Radiography Chest X-Ray - ED: 1 View, Read by ED Physician, Read by Radiologist, No Acute Disease and Chronic Changes Diagnostic Testing: Clinical Impression(s) from Imaging Studies Chest X-Ray 10/14/21 16:22 IMPRESSION: Blunting of the costophrenic angles with no small pleural effusions or pleural scarring. There is also scarring in the left lower lobe. There has been no change from the reference exam. at 1648 Reported and signed by: Orlin Marc MD Electronically Signed: Orlin Marc MD at 16:47 EDT , EKG Initial EKG: Attestation: I personally reviewed and interpreted this EKG as follows: Interpretation: Sinus Rhythm (78) and No Acute Injury Pattern Prior EKG tracings: available for review Prior: Unchanged (09/05/2021) Discharge Plan Triage Chief Complaint: Shortness of Breath ED Provider: Alhaji Puentes Dx/Rx/DC Orders Clinical Impression: Acute exacerbation of chronic obstructive pulmonary disease Instructions: ED COPD Flare Prescriptions: New prednisone 10 MG tablet 10 mg PO DAILY Qty: 63 RF: 0 No Action Calcium Magnesium 500 mg calcium -250 mg tablet 1 tab PO DAILY RF: 0 garlic Tablet 600 mg PO DAILY RF: 0 ascorbic acid (vitamin C) 500 mg tablet 1,000 mg PO DAILY RF: 0 aspirin [Adult Low Dose Aspirin] 81 mg tablet,delayed release (DR/EC) 81 mg PO DAILY RF: 0 tamsulosin 0.4 mg capsule 0.8 mg PO DAILY RF: 0 finasteride 5 MG tablet 5 mg PO DAILY RF: 0 ferrous sulfate 325 MG tablet 325 mg PO DAILY RF: 0 metoprolol tartrate 25 MG tablet 25 mg PO BID RF: 0 omeprazole 20 mg capsule,delayed release(DR/EC) 20 mg PO QHS RF: 0 Spiriva Respimat 2.5 mcg/actuation mist 2 inh INHALATION DAILY RF: 0 furosemide [Lasix] 40 mg tablet 40 mg PO BID Qty: 60 RF: 0 albuterol sulfate 90 mcg/actuation HFA aerosol inhaler 2 puff INHALATION Q6H PRN (Reason: shortness of breath or wheezing) Qty: 18 RF: 3 Primary Care Provider: Earle Espinoza Referrals: Yandel Shah MD [STAFF PHYSICIAN] - 3-5 Days Earle Espinoza MD [Primary Care Provider] - 3-5 Days Disposition Disposition: Home, Self Care
--- NOTE | 2021-10-14 15:33 | EKG12_ITS ---
Test Reason : SOB Blood Pressure : / mmHG Vent. Rate : 078 BPM Atrial Rate : 078 BPM P-R Int : 220 ms QRS Dur : 108 ms QT Int : 392 ms P-R-T Axes : 052 030 070 degrees QTc Int : 446 ms Sinus rhythm with 1st degree A-V block Otherwise normal ECG Confirmed by LEESA MENDEZ, DESTINEE ([id number]), editor in chief newspaper [employer] ([id number]) on 10/17/2021 8:57:05 AM Referred By: HAVEN Confirmed By:DESTINEE LANDERS MD
[2021-10-14] MEDS: Ipratropium/Albuterol Sulfate 3 ML AMPUL.NEB INHALATION (15:49)
[2021-10-14 15:52] LABS: Absolute Lymphocyte Count 1.37 X10^3/uL (0.83-4.51); Absolute Neutrophil Count 8.2 X10^3/uL (2.0-7.7); Basophil# 0.06 X10^3/uL; Basophil% 0.6 % (0-1); Eosinophil# 0.19 X10^3/uL; Eosinophils% 1.8 % (0-5); Hematocrit 40.9 % (40-54); Hemoglobin 12.5 g/dL (13.0-16.5); Lymphocyte # 1.37 X10^3/ul (0.83-4.51); Lymphocyte % 12.7 % (19-41); Mean Corp Hgb Conc 30.6 g/dL (32-36); Mean Corpuscular Hgb 29.3 pg (27.0-32.0); Mean Corpuscular Volume 95.8 fL (80-94); Mean Platelet Vol. 9.7 fl (6.2-12.0); Monocyte% 8.3 % (0-10); NRBC Flagged by Analyzer 0 % (0-5); Neutrophil # 8.21 X10^3/uL (2.7-7.7); Platelet Count 258 K/mm3 (150-450); RBC Distribution Width CV 13.5 % (11.6-14.6); RBC Distribution Width SD 48.1 fl (35.1-43.9); Red Blood Count 4.27 M/mm3 (4.6-6.2); White Blood Count 10.8 K/mm3 (4.4-11.0)
[2021-10-14 16:08] LABS: ALB/GLOB Ratio 0.7 RATIO (0.9-2.4); AST(SGOT) 24 U/L (15-37); Alanine Aminotransfer ALT/SGPT 21 U/L (16-61); Albumin, Serum 3.2 g/dL (3.2-5.0); Alkaline Phosphatase 77 U/L (45-117); Anion Gap 2 (5-15); BUN 20 mg/dL (7-18); BUN/Creat Ratio 28.5 RATIO (10-20); Chloride 93 mmol/L (98-107); EST Glomerular Filtration Rate 118 mL/min (>60); Est Glom Filt Rate - Afr Amer 143 mL/min (>60); Estimated Creatinine Clearance 59.79 ml/min; Globulin 4.5 g/dL (2.2-4.2); Glucose 164 mg/dL (74-106); Protein, Total 7.7 g/dL (6.4-8.2); Sodium Level 137 mmol/L (136-145); Troponin-I HS 4 pg/mL (3.0-78.0)
[2021-10-14 16:18] LABS: BNP,B-Type NATRIURETIC PEPTIDE 57.3 pg/mL (0-100)
--- NOTE | 2021-10-14 16:22 | RAD_ITS ---
EXAM: XR CHEST, 1 VIEW : 1950 CLINICAL INDICATION: Dyspnea TECHNIQUE: Frontal view of the chest. This report was created using [employer] report generation technology. COMPARISON: 09/05/2021 FINDINGS: LUNGS AND PLEURAL SPACES: There is blunting of the costophrenic angles. There is scarring seen within the left mid lung . No pneumothorax. No effusion. HEART: Unremarkable. Cardiac silhouette not enlarged. MEDIASTINUM: Central airways and mediastinal contour are unremarkable. BONES/JOINTS: Unremarkable. SOFT TISSUES: Unremarkable. RAD/Chest 1 View (Portable) IMPRESSION: Blunting of the costophrenic angles with no small pleural effusions or pleural scarring. There is also scarring in the left lower lobe. There has been no change from the reference exam. at 1648 Reported and signed by: Orlin Marc MD Electronically Signed: Orlin Marc MD at 16:47 EDT ,
--- NOTE | 2021-10-15 13:08 | CASEMGMT ---
ER RNCM DC F/u Call: ED Visit 10.14.21 for SOB Called listed cell phone number on demographics. Patient answered and this software writer introduced self and role. Patient states that he is feeling pretty good. Confirmed has picked up Prednisone and has been taking. Denies any issues, concerns or needs from this software writer to assist with his f/u and states I think I am in pretty good shape. No further issues or concerns voiced to this software writer. Justyna Freitas RNCM
== END 2021-10-14 19:36 | disposition home or self-care (01) ==
PROVIDERS: Emergency Provider Emergency Medicine; PCP Family Medicine; Visit Provider Emergency Medicine
DX: J44.1 Chronic obstructive pulmonary disease with (acute) exacerbation (principal); I50.32 Chronic diastolic (congestive) heart failure; E66.01 Morbid (severe) obesity due to excess calories; Z68.42 Body mass index [BMI] 45.0-49.9, adult; I44.0 Atrioventricular block, first degree; Z79.82 Long term (current) use of aspirin; Z79.899 Other long term (current) drug therapy; Z99.81 Dependence on supplemental oxygen; Z87.891 Personal history of nicotine dependence
CPT/HCPCS: 71045; 80053; 83880; 84484; 85025; 87811; 93005; 94640; 99284; A4216

== ENCOUNTER 2022-01-24 11:13 | Inpatient (IN) | payer MEDICARE, SELFPAY ==
[2022-01-24] VITALS (34 sets, daily range): BP systolic 106–183; BP diastolic 43–155; PULSE 85–108; RESP 12–29; TEMP 36.3–36.8; O2SAT 80–100; BMI 51.4; BMI 51.0
--- NOTE | 2022-01-24 11:29 | EKG12_ITS ---
Test Reason : SOB Blood Pressure : / mmHG Vent. Rate : 101 BPM Atrial Rate : 101 BPM P-R Int : 170 ms QRS Dur : 080 ms QT Int : 352 ms P-R-T Axes : 065 023 042 degrees QTc Int : 456 ms Sinus tachycardia Low voltage QRS Borderline ECG Confirmed by TORI MENDEZ, GAIL ([id number]), design editor [employer] ([id number]) on 01/27/2022 9:55:25 AM Referred By: KIKI Confirmed By:GAIL VALLE MD
--- NOTE | 2022-01-24 11:29 | RAD_ITS ---
STUDY: X-RAY CHEST REASON FOR EXAM: Male, 72 years old. Atypical chest pain TECHNIQUE: 2 AP portable views COMPARISON: 10/14/2021 FINDINGS: EKG leads overlie the chest Chronic interstitial changes in both lung mcclure with superimposed interstitial edema and stable blunting of both costophrenic angles. Normal size heart. Normal mediastinum and earlene. Normal visualized pulmonary arteries. Normal visualized aortic arch and descending thoracic aorta. Normal visualized thoracic spine. Normal visualized ribs, clavicles, and shoulders. There is no demonstrated abnormality of the visualized soft tissue structures of the upper abdomen. RAD/Chest 1 View (Portable) IMPRESSION: Chronic interstitial changes with superimposed interstitial edema and stable blunting of both costophrenic angles. Follow-up recommended to ensure resolution Electronically Signed: Hans Sheikh MD at 13:09 EDT ,
--- NOTE | 2022-01-24 11:31 | ED.VIS.DYS ---
HPI History of Present Illness Chief Complaint: Shortness of Breath Narrative Narrative: 72-year-old male presenting with shortness of breath. He states he was feeling a little goofy at home. Patient found to have a low pulse ox of 78. He normally wears 4 to 6 L at home. He states he is short of breath but feels improved after receiving breathing treatments by EMS. He is not had a fever. He does admit to occasional cough. He states his legs are more swollen than usual as well. He has a history of COPD and CHF. He is not reporting any chest pain. He has not had fever or chills. [facility] Medical History (Reviewed 01/19/22 @ 11:25 by Afua Friedman PATIENT ACCOUNTS MANAGER, PATIENT ACCOUNTS MANAGER-C) Acute on chronic respiratory failure with hypoxia and hypercapnia Anemia Asthma Atrial fibrillation Chronic respiratory failure Congestive heart failure (CHF) COPD (chronic obstructive pulmonary disease) CPAP (continuous positive airway pressure) dependence Diastolic CHF, chronic Edema Emphysema, unspecified Former smoker History of atrial fibrillation Injury of head and neck Loose, teeth Morbid obesity due to excess calories Nonrheumatic aortic (valve) insufficiency Obesity (BMI 30-39.9) On home oxygen therapy Positive occult stool blood test Restless legs Secondary pulmonary hypertension Secondary pulmonary hypertension Sleep apnea Stage 4 very severe COPD by GOLD classification Stage 4 very severe COPD by GOLD classification Wears glasses Home Medications finasteride 5 mg tablet 5 mg PO DAILY Check with primary doctor 05/05/20 [History Last Taken 09/04/21] ascorbic acid (vitamin C) 500 mg tablet 1,000 mg PO DAILY Check with primary doctor 07/04/20 [History Last Taken 09/05/21] calcium carb-Ca gluc 500 mg calcium-magnesium ox-Mg gluc 250 mg tablet (Calcium Magnesium) 1 tab PO DAILY Check with primary doctor 07/04/20 [History Last Taken 09/04/21] garlic 600 mg PO DAILY Check with primary doctor 07/04/20 [History Last Taken 09/05/21] tamsulosin 0.4 mg capsule 0.8 mg PO DAILY prostate 07/04/20 [History Last Taken 09/04/21] ferrous sulfate 325 mg (65 mg iron) tablet 325 mg PO DAILY Check with primary doctor 10/09/20 [History Last Taken 09/05/21] aspirin 81 mg tablet,delayed release (Adult Low Dose Aspirin) 81 mg PO DAILY Check with primary doctor 10/24/20 [History Last Taken 09/04/21] omeprazole 20 mg capsule,delayed release 20 mg PO QHS GERD 07/15/21 [History Last Taken 09/04/21] albuterol sulfate 90 mcg/actuation aerosol inhaler 2 puff inhalation Q6H PRN shortness of breath or wheezing #18 grams 08/08/21 [Rx Last Taken 09/05/21] tiotropium bromide 2.5 mcg/actuation mist for inhalation (Spiriva Respimat) 2 inh inhalation DAILY sob #3 ea 10/21/21 [Rx Last Taken Unknown] budesonide-formoterol HFA 160 mcg-4.5 mcg/actuation aerosol inhaler (Symbicort) 2 puff inhalation BID Check with primary doctor 01/24/22 [History Last Taken Unknown] furosemide 40 mg tablet (Lasix) 40 mg PO DAILY Check with primary doctor 01/24/22 [History Last Taken Unknown] metoprolol tartrate 25 mg tablet 25 mg PO BID Check with primary doctor 01/24/22 [History Last Taken Unknown] Allergy/AdvReac Type Severity Reaction Status Date / Time No Known Allergies Allergy Verified 01/24/22 11:19 Family History (Reviewed 01/19/22 @ 11:25 by Afua Friedman PATIENT ACCOUNTS MANAGER, PATIENT ACCOUNTS MANAGER-C) Mother Cancer stomach Father Heart disease Brother Cancer Surgical History (Reviewed 01/19/22 @ 11:25 by Afua Friedman PATIENT ACCOUNTS MANAGER, PATIENT ACCOUNTS MANAGER-C) History of surgery of head Hx of cataract surgery Hx of colonoscopy Social History Smoking Status: Former smoker pack-years: 60 Tobacco: How many years used: 30 alcohol intake: never substance use type: does not use caffeine: Yes Type: coffee Number of servings: 4 what type of physical activity do you participate in: none frequency: does not exercise ROS ROS ED Constitutional Constitutional ED: Denies chills or fever(s) Eyes Eyes: Denies change in vision ENT ENT ED: Denies rhinorrhea or sore throat Cardiovascular Cardiovascular: Denies chest pain or palpitations Respiratory/Chest Respiratory/Chest: Reports cough and dyspnea Gastrointestinal Gastrointestinal: Denies abdominal pain or constipation Genitourinary Genitourinary ED: Denies dysuria or hematuria Musculoskeletal Musculoskeletal: Denies arthralgias or back pain Integumentary Denies abscess Neurologic Neurologic: Denies headache(s) or paresthesias Psychiatric Psychiatric: Denies anxiety or depression EXAM Physical Exam Const Vital Signs: 01/24/22 11:14 01/24/22 11:20 01/24/22 11:47 Temperature 97.6 F L Temperature Source Temporal Pulse Rate 100 101 H Respiratory Rate 14 25 H Respiratory Depth Normal Respiratory Pattern Normal Blood Pressure 110/49 L 141/43 H Blood Pressure Mean 69 75 Pulse Ox 99 96 Oxygen Delivery Method Nasal Cannula Nasal Cannula Nasal Cannula Oxygen Flow Rate (L/min) 4 4 5.5 Fraction of Inspired Oxygen (FIO2) 01/24/22 11:57 01/24/22 12:31 01/24/22 12:31 Temperature Temperature Source Pulse Rate 108 H 97 Respiratory Rate 29 H 16 Respiratory Depth Respiratory Pattern Tachypnea Normal Blood Pressure Blood Pressure Mean Pulse Ox 93 93 Oxygen Delivery Method Bi-pap Oxygen Flow Rate (L/min) Fraction of Inspired Oxygen (FIO2) 50 50 01/24/22 13:20 Temperature Temperature Source Pulse Rate 93 Respiratory Rate 18 Respiratory Depth Respiratory Pattern Blood Pressure 147/91 H Blood Pressure Mean 109 Pulse Ox 98 Oxygen Delivery Method Bi-pap Oxygen Flow Rate (L/min) Fraction of Inspired Oxygen (FIO2) 50 Positive obese General Appearance ED: Negative for pallor Nutritional Appearance: obese HEENT Reports dry mucous membranes atraumatic Mouth ED: Yes dry mucous membranes Mouth: dry mucous membranes Eyes PERRL and EOMs intact bilaterally Resp Auscultation: rales bilateral throughout Cardio regular rate Rate: tachycardic GI non-tender Extremity General Extremety ED: Yes edema; Negative for tenderness General Extremity: edema Neuro CN's II-XII intact bilaterally Neuro Narrative: Answers questions appropriately but appears to be drowsy Sensorium / Orientation: alert Skin General Skin Exam: Negative for jaundice or pallor MDM MDM MDM Narrative Medical decision making narrative: Patient presenting with shortness of breath and stating he feels a little goofy. He is not reporting any chest pain. He is not had fever or chills. He does appear to be a little bit sleepy. Obtained an EKG which is a sinus rhythm with a ventricular rate of 101 bpm without sign of ischemic change or dysrhythmia. COVID testing was negative. Patient initially on nasal cannula however I did obtain a blood gas and he has a pH of 7.288 and a PCO2 of 106.2. This is likely causing mental status change. He was placed on BiPAP. Blood work obtained shows a very slight white blood cell count of 11.7. Hemoglobin stable at 11.7. Platelets normal at 277. Creatinine is also normal. His CO2 was elevated on his BMP. High-sensitivity troponin is 20. BNP is only 69 however his chest x-ray shows interstitial edema on my interpretation. Patient was wheezing when he initially arrived and he was given breathing treatments and Solu-Medrol. Based on his chest x-ray I will give a dose of Lasix 40 IV as well. I had a discussion with the patient's and she stated that he would not want to be on a ventilator should this progress. This was discussed with the hospitalist for admission. Impression: 1. Hypoxic respiratory failure 2. CHF 3. Hypercapnia Lab Data Attestation: I reviewed the patient's lab results. Labs: Laboratory Results - last 24 hr 01/24/22 01/24/22 01/24/22 11:40 11:40 11:40 WBC 11.7 H RBC 4.03 L Hgb 11.7 L Hct 40.8 MCV 101.2 H MCH 29.0 MCHC 28.7 L RDW Std Deviation 50.9 H RDW Coeff of Earle 13.6 Plt Count 277 MPV 9.7 Immature Gran % (Auto) 2.800 H Neut % (Auto) 82.4 H Lymph % (Auto) 6.9 L [place] % (Auto) 6.9 Eos % (Auto) 0.4 Baso % (Auto) 0.6 Absolute Neuts (auto) 9.6 H Absolute Lymphs (auto) 0.80 L Nucleated RBC % 0 Sodium 143 Potassium 4.1 Chloride 93 L Carbon Dioxide > 45.0 H* Anion Gap TNP BUN 21 H Creatinine 0.64 L Estim Creat Clear Calc 58.94 Est GFR (MDRD) Af Amer 160 Est GFR (MDRD) Non-Af 132 BUN/Creatinine Ratio 33.1 H Glucose 109 H Calcium 9.1 Troponin I High Sens 20 B-Natriuretic Peptide 69.0 Radiography Diagnostic Testing: Clinical Impression(s) from Imaging Studies Chest X-Ray 01/24/22 11:29 IMPRESSION: Chronic interstitial changes with superimposed interstitial edema and stable blunting of both costophrenic angles. Follow-up recommended to ensure resolution Electronically Signed: Hans Sheikh MD at 13:09 EDT , Discharge Plan Triage Chief Complaint: Shortness of Breath ED Provider: Zachary Aguira Dx/Rx/DC Orders Primary Care Provider: Juvenal Trivedi
[2022-01-24] MEDS: MethylPREDNISolone 125 MG/2 ML Vial IV (11:45)
[2022-01-24 11:55] LABS: Absolute Neutrophil Count 9.6 X10^3/uL (2.0-7.7); Basophil# 0.07 X10^3/uL; Basophil% 0.6 % (0-1); Eosinophil# 0.05 X10^3/uL; Eosinophils% 0.4 % (0-5); Hematocrit 40.8 % (40-54); Hemoglobin 11.7 g/dL (13.0-16.5); Lymphocyte % 6.9 % (19-41); Mean Corp Hgb Conc 28.7 g/dL (32-36); Mean Corpuscular Volume 101.2 fL (80-94); Mean Platelet Vol. 9.7 fl (6.2-12.0); Monocyte% 6.9 % (0-10); NRBC Flagged by Analyzer 0 % (0-5); Neutrophil # 9.61 X10^3/uL (2.7-7.7); Neutrophil % 82.4 % (47-70); Platelet Count 277 K/mm3 (150-450); RBC Distribution Width CV 13.6 % (11.6-14.6); RBC Distribution Width SD 50.9 fl (35.1-43.9); Red Blood Count 4.03 M/mm3 (4.6-6.2); White Blood Count 11.7 K/mm3 (4.4-11.0)
[2022-01-24] MEDS: Ipratropium/Albuterol Sulfate 3 ML AMPUL.NEB INHALATION ×4 (11:56→23:22)
[2022-01-24] MEDS: Albuterol 2.5 MG/3 ML VIAL.NEB. INHALATION (11:56)
[2022-01-24 12:17] LABS: BUN 21 mg/dL (7-18); BUN/Creat Ratio 33.1 RATIO (10-20); Calcium,Total 9.1 mg/dL (8.5-10.1); Carbon Dioxide > 45.0 mmol/L (21.0-32.0); Chloride 93 mmol/L (98-107); Creatinine, Serum 0.64 mg/dL (0.70-1.30); EST Glomerular Filtration Rate 132 mL/min (>60); Est Glom Filt Rate - Afr Amer 160 mL/min (>60); Estimated Creatinine Clearance 58.94 ml/min; Glucose 109 mg/dL (74-106); Potassium 4.1 mmol/L (3.5-5.1); Sodium Level 143 mmol/L (136-145); Troponin-I HS 20 pg/mL (3.0-78.0)
--- NOTE | 2022-01-24 13:27 | PCM.HP.STD ---
[facility] - General General Date of Admission: 01/24/22 Date of Service: 01/24/22 Chief Complaint: Progressive worsening of shortness of breath for 1 week HPI Narrative FARRAH ANDREWS, is a 72 M with history of COPD, chronic hypoxic respiratory failure on 4 to 6 L of oxygen at home was brought to ED for severe shortness of breath, progressively worsening for 1 week. Patient was found to have low pulse ox 78% in ED. He denies chest pain/pressure or tightness. As per the he is gradually swelling up mainly lower extremity and abdominal swelling for last 1 month. His diuretic was changed but seems not working. There is no recent change in urine output. No fever or chills. Patient has mild wheezing, new but denies change in cough, sputum production. Patient wears CPAP at home, 9 cm of H2O In ED, patient was put on BiPAP 50% FiO2, pulse ox 93% for respiratory failure. Chest x-ray individually reviewed and shows interstitial edema and capitalization along with chronic interstitial changes and blunting of both CP angles. Twelve-lead EKG individually reviewed, sinus tachycardia 101 b/m QRS 80 ms, QTC 450 ms. In pulmonary clinic, patient follows Dr. Shah last visit 10/15/2021. At that time evaluation was significant worsening over the last 3 months. Patient also has obstructive sleep apnea maintained EKG increasing weight along with 4+ pitting edema of lower extremities. At that time Lasix was doubled for 3 days and if no improvement then admission. [facility], [facility] Medical History Acute on chronic respiratory failure with hypoxia and hypercapnia Anemia Asthma Atrial fibrillation Chronic respiratory failure Congestive heart failure (CHF) COPD (chronic obstructive pulmonary disease) CPAP (continuous positive airway pressure) dependence Diastolic CHF, chronic Edema Emphysema, unspecified Former smoker History of atrial fibrillation Injury of head and neck Loose, teeth Morbid obesity due to excess calories Nonrheumatic aortic (valve) insufficiency Obesity (BMI 30-39.9) On home oxygen therapy Positive occult stool blood test Restless legs Secondary pulmonary hypertension Secondary pulmonary hypertension Sleep apnea Stage 4 very severe COPD by GOLD classification Stage 4 very severe COPD by GOLD classification Wears glasses Home Medications finasteride 5 mg tablet 5 mg PO DAILY Check with primary doctor 05/05/20 [History Last Taken 09/04/21] ascorbic acid (vitamin C) 500 mg tablet 1,000 mg PO DAILY Check with primary doctor 07/04/20 [History Last Taken 09/05/21] calcium carb-Ca gluc 500 mg calcium-magnesium ox-Mg gluc 250 mg tablet (Calcium Magnesium) 1 tab PO DAILY Check with primary doctor 07/04/20 [History Last Taken 09/04/21] garlic 600 mg PO DAILY Check with primary doctor 07/04/20 [History Last Taken 09/05/21] tamsulosin 0.4 mg capsule 0.8 mg PO DAILY prostate 07/04/20 [History Last Taken 09/04/21] ferrous sulfate 325 mg (65 mg iron) tablet 325 mg PO DAILY Check with primary doctor 10/09/20 [History Last Taken 09/05/21] aspirin 81 mg tablet,delayed release (Adult Low Dose Aspirin) 81 mg PO DAILY Check with primary doctor 10/24/20 [History Last Taken 09/04/21] omeprazole 20 mg capsule,delayed release 20 mg PO QHS GERD 07/15/21 [History Last Taken 09/04/21] albuterol sulfate 90 mcg/actuation aerosol inhaler 2 puff inhalation Q6H PRN shortness of breath or wheezing #18 grams 08/08/21 [Rx Last Taken 09/05/21] tiotropium bromide 2.5 mcg/actuation mist for inhalation (Spiriva Respimat) 2 inh inhalation DAILY sob #3 ea 10/21/21 [Rx Last Taken Unknown] budesonide-formoterol HFA 160 mcg-4.5 mcg/actuation aerosol inhaler (Symbicort) 2 puff inhalation BID Check with primary doctor 01/24/22 [History Last Taken Unknown] furosemide 40 mg tablet (Lasix) 40 mg PO DAILY Check with primary doctor 01/24/22 [History Last Taken Unknown] metoprolol tartrate 25 mg tablet 25 mg PO BID Check with primary doctor 01/24/22 [History Last Taken Unknown] Allergy/AdvReac Type Severity Reaction Status Date / Time No Known Allergies Allergy Verified 01/24/22 11:19 Family History Mother Cancer stomach Father Heart disease Brother Cancer Surgical History History of surgery of head Hx of cataract surgery Hx of colonoscopy Social History Smoking Status: Former smoker pack-years: 60 Tobacco: How many years used: 30 alcohol intake: never substance use type: does not use caffeine: Yes Type: coffee Number of servings: 4 what type of physical activity do you participate in: none frequency: does not exercise ROS ROS Narrative 14 system ROS limited as patient is on BiPAP, very short of breath and respiratory failure. History and ROS mainly taken from patient's near the bedside Constitutional: Reports fatigue and weakness, denies fever. Progressive decline in physical functional capacity HEENT: Reports systems reviewed and no addt'l complaints, except as documented Respiratory/Chest: Denies chest pain, rest admission HPI Gastrointestinal: Denies coffee ground emesis, hematemesis or vomiting Genitourinary: Denies burning urination or new urinary tract symptoms Musculoskeletal: Reports joint pain and limited range of motion, limited ambulation. Difficulty in balance endocrine Neurologic: Denies seizure-like activity skin: Bilateral lower leg venous hypertension, redness. No ulcer Endocrinology: Reports systems reviewed and no addt'l complaints, except as documented Hematologic/Lymphatic: Reports systems reviewed and no addt'l complaints, except as documented Rest 14 ROS are negative except as mentioned in HPI Vital Signs Vital Signs Vital Signs: 01/24/22 11:14 01/24/22 11:20 01/24/22 11:47 Temperature 97.6 F L Temperature Source Temporal Pulse Rate 100 101 H Respiratory Rate 14 25 H Respiratory Depth Normal Respiratory Pattern Normal Blood Pressure 110/49 L 141/43 H Blood Pressure Mean 69 75 Pulse Ox 99 96 Oxygen Delivery Method Nasal Cannula Nasal Cannula Nasal Cannula Oxygen Flow Rate (L/min) 4 4 5.5 Fraction of Inspired Oxygen (FIO2) 01/24/22 11:57 01/24/22 12:31 01/24/22 12:31 Temperature Temperature Source Pulse Rate 108 H 97 Respiratory Rate 29 H 16 Respiratory Depth Respiratory Pattern Tachypnea Normal Blood Pressure Blood Pressure Mean Pulse Ox 93 93 Oxygen Delivery Method Bi-pap Oxygen Flow Rate (L/min) Fraction of Inspired Oxygen (FIO2) 50 50 01/24/22 13:20 Temperature Temperature Source Pulse Rate 93 Respiratory Rate 18 Respiratory Depth Respiratory Pattern Blood Pressure 147/91 H Blood Pressure Mean 109 Pulse Ox 98 Oxygen Delivery Method Room Air Oxygen Flow Rate (L/min) Fraction of Inspired Oxygen (FIO2) Weight Weight: 308 lb 13.882 oz Body Mass Index (BMI) 51.4 Physical Exam Narrative Physical exam General: Alert, Oriented x3, Cooperative HEENT: Atraumatic, PERRLA, EOMI, Normocephalic Oral: On BiPAP Neck: Supple, No JVD, Negative Carotid Bruits Lungs: Air entry severely diminished bilaterally. Bilateral expiratory rhonchi and wheezing. Cardiovascular: Sinus tachycardia, Normal S1, Normal S2, No murmurs Abdomen: Bowel Sounds Present, Soft, Non Tender, Non-Distended. Mild shifting dullness, fluid thrill : No renal angle tenderness. No suprapubic tenderness. Extremities: No edema, Capillary Refill Less than 3 Seconds Skin: No rashes, No breakdown Musculoskeletal: No Tenderness to Palpation of Joints or Extremities Neurological: Cranial nerves II-XII grossly intact, DTR 2+/4 and Symmetrical, Neuro grossly intact Psych/Mental Status: Flat affect Results Lab / Micro Data Result Diagrams: 01/24/22 11:40 01/24/22 11:40 Labs: Laboratory Results - last 24 hr 01/24/22 11:40: WBC 11.7 H, RBC 4.03 L, Hgb 11.7 L, Hct 40.8, MCV 101.2 H, MCH 29.0, MCHC 28.7 L, RDW Std Deviation 50.9 H, RDW Coeff of Earle 13.6, Plt Count 277, MPV 9.7, Immature Gran % (Auto) 2.800 H, Neut % (Auto) 82.4 H, Lymph % (Auto) 6.9 L, [place] % (Auto) 6.9, Eos % (Auto) 0.4, Baso % (Auto) 0.6, Absolute Neuts (auto) 9.6 H, Absolute Lymphs (auto) 0.80 L, Nucleated RBC % 0 01/24/22 11:40: Sodium 143, Potassium 4.1, Chloride 93 L, Carbon Dioxide > 45.0 H*, Anion Gap TNP, BUN 21 H, Creatinine 0.64 L, Estim Creat Clear Calc 58.94, Est GFR (MDRD) Af Amer 160, Est GFR (MDRD) Non-Af 132, BUN/Creatinine Ratio 33.1 H, Glucose 109 H, Calcium 9.1, Troponin I High Sens 20 01/24/22 11:40: B-Natriuretic Peptide 69.0 Micro: Microbiology 01/24/22 11:40 Nasal Secretion SARS-CoV-2 Antigen (Rapid) - Final Radiology Impression Chest X-Ray 01/24/22 11:29 IMPRESSION: Chronic interstitial changes with superimposed interstitial edema and stable blunting of both costophrenic angles. Follow-up recommended to ensure resolution Electronically Signed: Hans Sheikh MD at 13:09 EDT , Assessment & Plan Assessment/Plan (1) Acute and chronic respiratory failure with hypercapnia: PLAN: Plan This is 72-year-old gentleman admitted with severe shortness of breath progressively worsening for 1 week consistent with acute on chronic hypoxic and hypercarbic respiratory failure. 1. Acute on chronic combined hypoxic hypercarbic respiratory failure mostly due to CHF exacerbation/COPD exacerbation: ABG done in ER 7.2 on 5 L of oxygen through nasal cannula. Patient is being admitted in ICU on BiPAP. Talked in detail with patient and regarding intubation and ventilator but they do not want it. Financial Sales Professional consultation for further management. 2. Acute on chronic HFpEF: Patient had last echo in July 2020 reported as EF 55%, technically limited study because of body habitus, normal left atrium. Unable to estimate RVSP. Patient was given Lasix 40 mg IV in ED and started on Lasix drip as patient did not responded as an outpatient with increasing diuretic. BUN/creatinine 21/0.64. Potassium 4.1, magnesium 2.4 and phosphorus 2.9. 3. Mild COPD exacerbation, COPD Gold stage IV with history of obstructive sleep apnea/OSH on CPAP at home, 9 cmH2O.: Patient does not have change in cough or sputum production but is more short of breath with wheezing: Started on IV Solu-Medrol, scheduled DuoNeb bronchodilator, Zithromax. COVID-19 rapid antigen negative. Influenza test ordered. 4. Chronic macrocytic anemia: Patient on baseline. Home iron continued 5. BPH -Continue Flomax 6. GERD -Continue PPI 7. Hypertension: Patient on CHF exacerbation therefore resume beta-robert when patient is euvolemic. -Continue metoprolol 8. Paroxysmal A. fib: Patient currently in sinus rhythm. Not on anticoagulation. 9. Morbid obesity: BMI 51.0 kg per metered square. During previous admission it was 49.8 kg per metered square in August 2021. Enoxaparin 40 mg SQ twice daily for VTE prophylaxis. Living will/advanced directive/end of life care: Patient does have living will or advanced directive. His is power of estate planning attorney of health, discussed near the bedside. After discussion of benefits/risks procedures involved with full code, DNR CC arrest and DNR CC, the patient and his opted for DNRCC arrest, no intubation. Patient and his does not want artificial life support including intubation, tube feed, ventilator and/chest compression, central venous catheter, vasopressor and DC shock if needed Total time spent in [id number] encounter in discussion of advanced directive 16 minutes. Microbiology Past 72 Hours 01/24/22 11:40 Nasal Secretion SARS-CoV-2 Antigen (Rapid) - Final Laboratory Results 01/24/22 11:40: WBC 11.7 H, RBC 4.03 L, Hgb 11.7 L, Hct 40.8, MCV 101.2 H, MCH 29.0, MCHC 28.7 L, RDW Std Deviation 50.9 H, RDW Coeff of Earle 13.6, Plt Count 277, MPV 9.7, Immature Gran % (Auto) 2.800 H, Neut % (Auto) 82.4 H, Lymph % (Auto) 6.9 L, [place] % (Auto) 6.9, Eos % (Auto) 0.4, Baso % (Auto) 0.6, Absolute Neuts (auto) 9.6 H, Absolute Lymphs (auto) 0.80 L, Nucleated RBC % 0 01/24/22 11:40: Sodium 143, Potassium 4.1, Chloride 93 L, Carbon Dioxide > 45.0 H*, Anion Gap TNP, BUN 21 H, Creatinine 0.64 L, Estim Creat Clear Calc 58.94, Est GFR (MDRD) Af Amer 160, Est GFR (MDRD) Non-Af 132, BUN/Creatinine Ratio 33.1 H, Glucose 109 H, Calcium 9.1, Troponin I High Sens 20 01/24/22 11:40: B-Natriuretic Peptide 69.0 07/02/22 11:40: Phosphorus 2.9, Magnesium 2.4 01/24/22 12:17: Specimen Type ART, Sample Site L Radial, pH 7.29 L, Bicarbonate Actual 50.8 H, Total CO2 > 50, Base Excess 24 H, O2 Saturation 95, ABG pCO2 106.2 H*, ABG pO2 96, Liter Flow 5.0, Crit Call To/Read Back Yes Charges/Coding Visit Charges Inpatient E&M: 84236 Init Hosp L3 Procedures Hospitalists Procedures: 00527 Advncd Care Plan 30 Min
[2022-01-24] MEDS: Furosemide 40 MG/4 ML Vial IV (13:43)
[2022-01-24 15:06] LABS: Magnesium 2.4 mg/dL (1.6-2.6); Phosphorus 2.9 mg/dL (2.5-4.9)
[2022-01-24 15:06] LABS: Base Excess 24 mmol/L (-2 to +2); Bicarbonate 50.8 mmol/L (22-26); Blood Gas Specimen Type ART; PO2 96 mmHG (75-100); SITE L Radial; SO2 95 % (95-99); Total Carbon Dioxide > 50 mmol/L; pCO2 106.2 mmHg (35-45); pH 7.29 (7.35-7.45)
[2022-01-24 15:39] LABS: Troponin-I HS 16 pg/mL (3.0-78.0)
[2022-01-24 16:01] LABS: Allen Test Positive; Base Excess 20 mmol/L (-2 to +2); Bicarbonate 46.7 mmol/L (22-26); Blood Gas Specimen Type ART; FI02 50; Mode BiLevel; O2 Delivery Device BiPAP; PEEP 4; PO2 97 mmHG (75-100); RR 12; SITE L Radial; SO2 96 % (95-99); Total Carbon Dioxide 50 mmol/L; pCO2 97.8 mmHg (35-45); pH 7.29 (7.35-7.45)
[2022-01-24] MEDS: Azithromycin 250 MG Tablet 500 MG PO (16:12)
[2022-01-24] MEDS: Furosemide 500 MG in Empty Viaflex 50 mL 1 EACH CONT INF (17:04)
[2022-01-24] MEDS: Lidocaine Jelly 2% 20 ML Syringe (URO-JET) 1 APPLIC TOPICAL (17:05)
--- NOTE | 2022-01-24 18:54 | PCM.CONS.C ---
Assessment & Plan Assessment/Plan (1) Diastolic CHF, chronic: PLAN: The patient presents with concerns of acute on chronic diastolic CHF or heart failure with preserved ejection fraction. This is been raised based upon the patient's symptoms as well as the patient demonstrating evidence of volume overload with respect to concerns of pulmonary edema and peripheral edema. Of note, the patient's BNP level, which is a high negative predictive value test, is reported as negative. This would raise concerns that the patient's symptoms and findings may be noncardiac in etiology. However, it is also known that a low BNP level can occur and obesity which the patient demonstrates. Thus at the present time the patient is going to continue to be observed. He is continuing medical therapy for concerns of heart failure with preserved ejection fraction-based upon his previous transthoracic echocardiogram. This includes IV furosemide therapy. He may need other agents as well over time to assist with this such as nitrates, additional diuretics such as Aldactone/spironolactone, afterload reducing agents, etc. The patient is currently on a beta-robert. His clinical course may assist as to whether or not he remains on the same beta-robert or a different beta-robert over time. He will also be asked to have future reevaluation with a transthoracic echocardiogram. (2) Atrial fibrillation: PLAN: The patient has a history of atrial fibrillation as noted. He appears to be in sinus rhythm at this time. He will continue to be monitored. If he has recurrence of atrial fibrillation he will need adjustment of rate limiting medications, antiarrhythmic therapy, as well as anticoagulant therapy. (3) Acute and chronic respiratory failure with hypercapnia: PLAN: The patient presented with acute on chronic respiratory failure with hypercapnia as noted. He is currently in the ICU being treated medically. He is currently wearing BiPAP. He has monitored closely for any concerns of deterioration in his respiratory status. (4) Stage 4 very severe COPD by GOLD classification: PLAN: The patient has a history of significant COPD. He will continue evaluation care per internal medicine and pulmonology/critical care medicine. (5) Secondary pulmonary hypertension: PLAN: The patient has a history of secondary pulmonary hypertension. It is thought this is related to his underlying pulmonary disease process. Request has been made for transthoracic echocardiogram to be performed which may, depending upon the image quality in the information obtained, be able to provide an estimate of his right-sided/pulmonary pressures. Addt'l Comments The patient's case has been discussed and reviewed with the patient, his spouse, his son, and Dr. Thomas. This note was generated using a voice recognition system and there may be incorrect words, spelling or punctuation that were not noted when reviewing the office note prior to saving. HPI Consult Data Date of Consult: 01/24/22 HPI Narrative HPI Narrative: FARRAH ANDREWS, is a 72 year old white male who presents for cardiovascular saltation for concerns of CHF superimposed upon a history of atrial fibrillation during a previous COVID-19 exposure and CHF superimposed upon a history of underlying COPD and secondary pulmonary hypertension. His last outpatient cardiovascular visit appears to been on 11-01-2020. The patient is currently in the ICU on BiPAP therapy. Thus it is hard for the patient to communicate. According to his spouse and son who is with him he has been residing within his home for the last month. He has been progressively short of breath and dyspneic and more so recently. He has been attempting to sleep in a recliner versus in his bed over the past week. He does reportedly wear his oxygen therapy at home and his CPAP device at home. According to his family there have been no reports of ongoing chest discomfort. There is been no reports of palpitations or rapid heart rates other than today his family noted that his heart rate was elevated during his EMS evaluation. They state he was also noted to be markedly hypoxic with O2 saturation in the low 70% range. As he was evaluated and treated by the EMS they noted his heart rate decreased and his O2 saturation gradually increased. There has been no near-syncope or syncope reported. They note that he has had increased edema of his lower extremities. The family is not aware of any obvious fevers. They are not aware of any productive cough at home. They do state that he was acting a little goofy at home. His family states he has been taking his medications at home as prescribed to the best of their knowledge. In the emergency department he was evaluated. He was noted to be afebrile. He was noted to have an elevated WBC. He had an ABG with a pH reported at 7.29 with a PCO2 of 97.8, PO2 of 97, and an O2 saturation of 96%-on BiPAP. He underwent a COVID-19 rapid antigen test which was negative. He underwent an influenza type A/B test which was negative. Troponin I level was negative. A BNP level was negative. He was noted to be tachycardic with sinus tachycardia with low voltage QRS on his ECG but no acute ECG changes. He had a chest x-ray which suggested chronic interstitial changes superimposed upon interstitial edema and blunting of both costophrenic angles. In comparison to a previous chest x-ray from 10-14-2021 there appeared to be, on review of the radiologic images, similar type findings-potentially somewhat more prominent. It appears he was subsequently treated with oral azithromycin therapy. He was placed on IV corticosteroid therapy. Based upon concerns of volume overload he was placed on IV continuous furosemide therapy. He was placed in the ICU for further close respiratory evaluation and care. [facility] Medical History Acute on chronic respiratory failure with hypoxia and hypercapnia Anemia Asthma Atrial fibrillation Chronic respiratory failure Congestive heart failure (CHF) COPD (chronic obstructive pulmonary disease) CPAP (continuous positive airway pressure) dependence Diastolic CHF, chronic Edema Emphysema, unspecified Former smoker History of atrial fibrillation Injury of head and neck Loose, teeth Morbid obesity due to excess calories Nonrheumatic aortic (valve) insufficiency Obesity (BMI 30-39.9) On home oxygen therapy Positive occult stool blood test Restless legs Secondary pulmonary hypertension Secondary pulmonary hypertension Sleep apnea Stage 4 very severe COPD by GOLD classification Stage 4 very severe COPD by GOLD classification Wears glasses Home Medications finasteride 5 mg tablet 5 mg PO DAILY Check with primary doctor 05/05/20 [History Last Taken 09/04/21] ascorbic acid (vitamin C) 500 mg tablet 1,000 mg PO DAILY Check with primary doctor 07/04/20 [History Last Taken 09/05/21] calcium carb-Ca gluc 500 mg calcium-magnesium ox-Mg gluc 250 mg tablet (Calcium Magnesium) 1 tab PO DAILY Check with primary doctor 07/04/20 [History Last Taken 09/04/21] garlic 600 mg PO DAILY Check with primary doctor 07/04/20 [History Last Taken 09/05/21] tamsulosin 0.4 mg capsule 0.8 mg PO DAILY prostate 07/04/20 [History Last Taken 09/04/21] ferrous sulfate 325 mg (65 mg iron) tablet 325 mg PO DAILY Check with primary doctor 10/09/20 [History Last Taken 09/05/21] aspirin 81 mg tablet,delayed release (Adult Low Dose Aspirin) 81 mg PO DAILY Check with primary doctor 10/24/20 [History Last Taken 09/04/21] omeprazole 20 mg capsule,delayed release 20 mg PO QHS GERD 07/15/21 [History Last Taken 09/04/21] albuterol sulfate 90 mcg/actuation aerosol inhaler 2 puff inhalation Q6H PRN shortness of breath or wheezing #18 grams 08/08/21 [Rx Last Taken 09/05/21] tiotropium bromide 2.5 mcg/actuation mist for inhalation (Spiriva Respimat) 2 inh inhalation DAILY sob #3 ea 10/21/21 [Rx Last Taken Unknown] budesonide-formoterol HFA 160 mcg-4.5 mcg/actuation aerosol inhaler (Symbicort) 2 puff inhalation BID Check with primary doctor 01/24/22 [History Last Taken Unknown] furosemide 40 mg tablet (Lasix) 40 mg PO DAILY Check with primary doctor 01/24/22 [History Last Taken Unknown] metoprolol tartrate 25 mg tablet 25 mg PO BID Check with primary doctor 01/24/22 [History Last Taken Unknown] Allergy/AdvReac Type Severity Reaction Status Date / Time No Known Allergies Allergy Verified 01/24/22 11:19 Family History Mother Cancer stomach Father Heart disease Brother Cancer Surgical History History of surgery of head Hx of cataract surgery Hx of colonoscopy Social History Smoking Status: Former smoker pack-years: 60 Tobacco: How many years used: 30 alcohol intake: never substance use type: does not use caffeine: Yes Type: coffee Number of servings: 4 what type of physical activity do you participate in: none frequency: does not exercise ROS Review of Systems ROS Unobtainable: other Details: From the patient: Unobtainable: Secondary to the patient appearing somewhat lethargic and wearing a BiPAP mask Constitutional Constitutional: Reports fatigue Eyes Eyes: Reports as per HPI ENT HEENT: Reports as per HPI Cardiovascular Cardiovascular: Reports dyspnea and edema Respiratory/Chest Respiratory/Chest: Reports dyspnea Gastrointestinal Gastrointestinal: Reports as per HPI Genitourinary Genitourinary: Reports as per HPI Musculoskeletal Musculoskeletal: Reports as per HPI Integumentary Integumentary: Reports as per HPI Neurologic Neurologic: Reports confusion Psychiatric Psychiatric: Reports as per HPI Physical Exam Narrative This is a 72-year-old obese white male who appears to be somewhat lethargic at this time wearing a BiPAP mask. HEENT normocephalic and head/scalp atraumatic Neck no JVD Carotids: normal carotid upstroke Resp Auscultation: wheezes throughout and diminished lung sounds bilateral lower Cardio regular rhythm, S1 normal heart sound and S2 normal heart sound Cardio Narrative: Diminished cardiac tones Rate: tachycardic GI GI Narrative: Large abdomen: Positive bowel sounds Extremity General Extremity: edema bilateral lower extremity (Positive Sunil wraps in place) Details: severe Risk Stratification Risk Stratification Applicable: No Procedure Criteria Type of Procedure Procedure Type: Elective Elective Risks - COVID COVID Risk Discussion: The surgeon/proceduralist and patient have discussed in detail the risk of exposure to and/or potential harm posed by the COVID-19 virus with having a surgery/procedure at this time versus the risk of delaying the surgery/procedure. It is not possible to know either the risk of delaying the surgery or procedure or chance of getting an infection with perfect accuracy, but a joint decision was made between the patient and the surgeon/proceduralist to proceed at this time with the scheduled surgery/procedure as indicated on the consent form. Objective Data Vital Signs: Vital Signs Temp Pulse Resp BP Pulse Ox O2 Del Method O2 Flow Rate 97.3 F L 89 17 116/72 95 Bi-pap 5.5 01/24/22 14:49 01/24/22 18:00 01/24/22 18:00 01/24/22 18:00 01/24/22 18:00 01/24/22 18:00 01/24/22 11:47 FiO2 50 01/24/22 17:00 Oxygen Flow Rate (L/min) 5.5 Oxygen Delivery Method Bi-pap Weight: 306 lb 10.608 oz Body Mass Index (BMI) 51.0 Intake & Output: Intake and Output for Last 24 Hours 01/22/22 01/23/22 01/24/22 23:59 23:59 23:59 Output Total 900 / 900 Balance -900 / -900 Lab / Micro Data Result Diagrams: 01/24/22 11:40 01/24/22 11:40 Labs: Laboratory Results - last 24 hr 01/24/22 11:40: WBC 11.7 H, RBC 4.03 L, Hgb 11.7 L, Hct 40.8, MCV 101.2 H, MCH 29.0, MCHC 28.7 L, RDW Std Deviation 50.9 H, RDW Coeff of Earle 13.6, Plt Count 277, MPV 9.7, Immature Gran % (Auto) 2.800 H, Neut % (Auto) 82.4 H, Lymph % (Auto) 6.9 L, Hettinger % (Auto) 6.9, Eos % (Auto) 0.4, Baso % (Auto) 0.6, Absolute Neuts (auto) 9.6 H, Absolute Lymphs (auto) 0.80 L, Nucleated RBC % 0 01/24/22 11:40: Sodium 143, Potassium 4.1, Chloride 93 L, Carbon Dioxide > 45.0 H*, Anion Gap TNP, BUN 21 H, Creatinine 0.64 L, Estim Creat Clear Calc 58.94, Est GFR (MDRD) Af Amer 160, Est GFR (MDRD) Non-Af 132, BUN/Creatinine Ratio 33.1 H, Glucose 109 H, Calcium 9.1, Troponin I High Sens 20 01/24/22 11:40: B-Natriuretic Peptide 69.0 01/24/22 11:40: Phosphorus 2.9, Magnesium 2.4 01/24/22 15:15: Troponin I High Sens 16 Micro: Microbiology 01/24/22 16:30 Mucosa - Nasopharyngeal Influenza Types A,B Direct FA (CHIP) - Final 01/24/22 11:40 Nasal Secretion SARS-CoV-2 Antigen (Rapid) - Final ABG Data ABG results: ABG 01/24/22 01/24/22 12:17 15:55 Specimen Type ART ART Sample Site L Radial L Radial pH 7.29 L 7.29 L Bicarbonate Actual 50.8 H 46.7 H Total CO2 > 50 50 Base Excess 24 H 20 H O2 Saturation 95 96 O2 % 50 ABG pCO2 106.2 H* 97.8 H* ABG pO2 96 97 Mahesh Test Positive Respiration Rate 12 O2 Delivery Device BiPAP Liter Flow 5.0 Vent Mode BiLevel POC PEEP 4 Crit Call To/Read Back Yes Yes Blood Gas Notified Whom estiven Clinical Comments bipap Cardiology Labs/Tests 01/24/22 11:40: WBC 11.7 H, RBC 4.03 L, Hgb 11.7 L, Hct 40.8, MCV 101.2 H, MCH 29.0, MCHC 28.7 L, Plt Count 277, MPV 9.7, Immature Gran % (Auto) 2.800 H, Neut % (Auto) 82.4 H, Lymph % (Auto) 6.9 L, Hettinger % (Auto) 6.9, Eos % (Auto) 0.4, Baso % (Auto) 0.6, Absolute Neuts (auto) 9.6 H, Nucleated RBC % 0 01/24/22 11:40: Sodium 143, Potassium 4.1, Chloride 93 L, Carbon Dioxide > 45.0 H*, Anion Gap TNP, BUN 21 H, Creatinine 0.64 L, Est GFR (MDRD) Af Amer 160, Est GFR (MDRD) Non-Af 132, BUN/Creatinine Ratio 33.1 H, Glucose 109 H, Calcium 9.1 01/24/22 11:40: B-Natriuretic Peptide 69.0 01/24/22 11:40: Phosphorus 2.9, Magnesium 2.4 01/24/22 12:17: pH 7.29 L, Bicarbonate Actual 50.8 H, Base Excess 24 H, O2 Saturation 95, ABG pCO2 106.2 H*, ABG pO2 96 01/24/22 15:55: pH 7.29 L, Bicarbonate Actual 46.7 H, Base Excess 20 H, O2 Saturation 96, ABG pCO2 97.8 H*, ABG pO2 97, Mahesh Test Positive Rhythm: Sinus tachycardia EKG: Sinus tachycardia; low voltage QRS ECHO: Interpretation Summary The study was technically difficult. Contrast injection was performed. Based upon the 2D echocardiographic and contrast enhanced images obtained there appears to be grossly normal left ventricular size, wall motion, and systolic function. The estimated ejection fraction is 55 %. Trivial mitral valve insufficiency. Trivial tricuspid valve insufficiency. Mild focal aortic valve thickening. Moderate focal aortic valve calcification. Unable to estimate RV systolic pressure/pulmonary artery pressure due to technically difficult study. Diastolic function is indeterminate. Radiography Diagnostic Testing: Radiology Impression Chest X-Ray 01/24/22 11:29 IMPRESSION: Chronic interstitial changes with superimposed interstitial edema and stable blunting of both costophrenic angles. Follow-up recommended to ensure resolution Electronically Signed: Hans Sheikh MD at 13:09 EDT ,
[2022-01-24] MEDS: hydrALAZINE 20 MG/ML Vial 10 MG IV (21:52)
[2022-01-24] MEDS: Morphine 2 MG/ML Syringe IV (22:58)
[2022-01-25] VITALS (31 sets, daily range): BP systolic 105–140; BP diastolic 54–112; PULSE 73–106; RESP 14–27; TEMP 36.1–37; O2SAT 90–98
[2022-01-25] MEDS: Ipratropium/Albuterol Sulfate 3 ML AMPUL.NEB INHALATION ×6 (03:11→23:05)
[2022-01-25 03:25] LABS: Absolute Lymphocyte Count 0.34 X10^3/uL (0.83-4.51); Absolute Neutrophil Count 10.6 X10^3/uL (2.0-7.7); Basophil# 0.01 X10^3/uL; Basophil% 0.1 % (0-1); Hematocrit 37.5 % (40-54); Hemoglobin 10.5 g/dL (13.0-16.5); Lymphocyte # 0.34 X10^3/ul (0.83-4.51); Lymphocyte % 3.1 % (19-41); Mean Corpuscular Hgb 28.3 pg (27.0-32.0); Mean Corpuscular Volume 101.1 fL (80-94); Mean Platelet Vol. 9.9 fl (6.2-12.0); Monocyte# 0.16 X10^3/uL; Monocyte% 1.4 % (0-10); NRBC Flagged by Analyzer 0 % (0-5); Neutrophil # 10.55 X10^3/uL (2.7-7.7); Neutrophil % 94.9 % (47-70); POSITIVE DIFFERENTIAL YES; Platelet Count 265 K/mm3 (150-450); RBC Distribution Width CV 13.8 % (11.6-14.6); RBC Distribution Width SD 51.1 fl (35.1-43.9); Red Blood Count 3.71 M/mm3 (4.6-6.2); White Blood Count 11.1 K/mm3 (4.4-11.0)
[2022-01-25 03:28] LABS: Differential Indicated SCAN CRITERIA MET
--- NOTE | 2022-01-25 03:58 | PCM.HOSP.N ---
Hospitalist Note RN noting abdominal distention, discomfort per patient. Will request AM KUB. Additionally, noted history of traumatic whitlock insertion with still ongoing hematuria, small clots but still having UOP without concern for obstruction. Lovenox on hold per RN report.
[2022-01-25 04:13] LABS: BUN 23 mg/dL (7-18); BUN/Creat Ratio 33.1 RATIO (10-20); Calcium,Total 8.8 mg/dL (8.5-10.1); Carbon Dioxide > 45.0 mmol/L (21.0-32.0); Chloride 86 mmol/L (98-107); Cholesterol 176 mg/dL (200); EST Glomerular Filtration Rate 119 mL/min (>60); Est Glom Filt Rate - Afr Amer 144 mL/min (>60); Estimated Creatinine Clearance 58.94 ml/min; Glucose 181 mg/dL (74-106); High Density Lipoprotein 60 mg/dL; Potassium 3.9 mmol/L (3.5-5.1); Sodium Level 140 mmol/L (136-145); Thyroid Stim Hormone (TSH) 0.62 uIU/mL (0.358-3.74); Triglycerides 45 mg/dL; Very Low Density Lipoprotein 9 mg/dL (5-40)
[2022-01-25 04:27] LABS: Differential Comment SCANNED
--- NOTE | 2022-01-25 05:55 | RAD_ITS ---
INDICATION: Abdominal distention, pain EXAMINATION/TECHNIQUE: X-RAY - XR Abdomen 1 View: 4 images AP abdomen COMPARISON: Chest radiograph January 25, 2022 FINDINGS: BOWEL GAS PATTERN: Moderate to large colonic stool burden. Distended small bowel in the right lower abdomen. FREE AIR: Not well assessed on a single supine view. ORGANOMEGALY: Not seen. CALCIFICATIONS: 5 mm left abdominal calcifications suggestive of renal stone. LOWER CHEST: Small costophrenic angle effusions.. BONES AND SOFT TISSUES: No acute pathology. RAD/Abdomen Single View (Portable) IMPRESSION: Moderate to large colonic stool burden with mildly distended distal small bowel, compatible with constipation appropriate setting. Radiographic follow-up recommended to exclude developing distal small bowel obstruction. Electronically Signed: Harman Terry MD at 7:27 EDT ,
--- NOTE | 2022-01-25 05:55 | RAD_ITS ---
INDICATION: CHF EXAMINATION/TECHNIQUE: X-RAY - XR Chest 1 View COMPARISON: January 24, 2022. FINDINGS: LINES/DEVICES: None. LUNGS: Mild diffuse interstitial thickening, slightly decreased from prior exam. Linear atelectasis in the mid and lower lungs. Trace effusions. MEDIASTINUM AND CARDIOVASCULAR STRUCTURES: Cardiac silhouette not enlarged. Mild aortic tortuosity. Central airways and mediastinal contour are unremarkable. BONES AND SOFT TISSUES: Unremarkable. RAD/Chest 1 View (Portable) IMPRESSION: Mild interstitial edema and trace effusions, slightly decreased from prior exam. Electronically Signed: Harman Terry MD at 7:22 EDT ,
--- NOTE | 2022-01-25 05:59 | EX.PCM.CONCC ---
Assessment & Plan Assessment/Plan (1) Acute on chronic respiratory failure with hypoxia and hypercapnia: PLAN: Plan RECOMMENDATIONS: 1. Wean from BiPAP therapy to nasal cannula supplemental oxygen. 2. Transition from continuous Lasix to intermittent boluses. 3. Continue scheduled bronchodilators and IV steroids. Can likely be transition to prednisone beginning tomorrow. 4. Encourage incentive spirometer use and mobilize patient as tolerated. 5. Continue appropriate DVT prophylaxis. IMPRESSIONS: 1. Acute on chronic combined respiratory failure The patient has known end-stage COPD and chronic hypoxemic respiratory failure, with what appears to be a baseline oxygen requirement of 5 to 6 L/min. The patient is already on maximum triple therapy inhaler regimen at his baseline. He has been compliant, per report, with the aforementioned medications. His symptoms, radiographic findings and response to Lasix suggest the possible implication of heart failure with preserved ejection fraction. The patient, at this time, can be weaned from BiPAP therapy and transition back to nasal cannula oxygen. He can also likely be transition from continuous Lasix to intermittent bolusing. I would plan to continue scheduled bronchodilators and IV steroids yesterday, with tentative plans to transition him to prednisone beginning tomorrow. The patient would likely benefit from palliative care involvement given the end-stage nature of his disease and frequent hospitalizations. Given that his CODE STATUS remains DNR CCA without intubation, the patient can be transitioned out of the medical intensive care unit. 2. Obstructive sleep apnea The patient regularly utilizes nocturnal AutoPap therapy, for which he has been apparently compliant with its use according to his last pulmonary office visit note. 3. Morbid obesity/anemia/BPH/GERD/paroxysmal atrial fibrillation Complicates care, management, recovery and prognosis. Continue home medications as indicated. This note was generated with [employer] dictation software. It may contain incorrect words, spelling, and punctuation that were not noted in checking the note before signing. HPI Consult Data Date of Consult: 01/25/22 HPI Narrative Reason for Consultation: Acute hypoxemic respiratory failure HPI Narrative: The patient is a 72-year-old male, with a history as outlined below, who presented to the emergency department on January 24 with progressive shortness of breath. The patient has a known history of stage IV GOLD obstructive lung disease and chronic hypoxemic respiratory failure. The patient's medical history is also significant for chronic heart failure with preserved ejection fraction and obstructive sleep apnea. The patient was last seen in the pulmonary medicine clinic at the end of December 2021, at which time, he was noted to be utilizing between 5 and 6 L/min of continuous supplemental oxygen at his baseline. On presentation to the emergency department, the patient was noted to be afebrile and hemodynamically stable. He was saturating 99% on 4 L/min via nasal cannula. Initial laboratory evaluation revealed a white blood cell count of 12,000. Initial ABG on nasal cannula oxygen revealed a pH of 7.29 with a PCO2 of 106 and PO2 of 96. Chemistry profile was notable for a bicarbonate of greater than 45. Chest imaging demonstrated bilateral interstitial edema and blunting of the costophrenic angles. In the emergency department, the patient was placed on BiPAP therapy and started on antimicrobials, bronchodilators, steroids and a continuous IV Lasix infusion. He was subsequently admitted to the medical intensive care unit for further management. This morning, the patient's nursing staff reported that he had traumatic Cruz insertion yesterday and has been experiencing hematuria since that time. The patient did report to me this morning that he feels less short of breath than previous since being on BiPAP and Lasix. [facility] Medical History (Reviewed 01/19/22 @ 11:25 by Afua Friedman LICENSED OCCUPATIONAL THERAPIST, LICENSED OCCUPATIONAL THERAPIST-C) Acute on chronic respiratory failure with hypoxia and hypercapnia Anemia Asthma Atrial fibrillation Chronic respiratory failure Congestive heart failure (CHF) COPD (chronic obstructive pulmonary disease) CPAP (continuous positive airway pressure) dependence Diastolic CHF, chronic Edema Emphysema, unspecified Former smoker History of atrial fibrillation Injury of head and neck Loose, teeth Morbid obesity due to excess calories Nonrheumatic aortic (valve) insufficiency Obesity (BMI 30-39.9) On home oxygen therapy Positive occult stool blood test Restless legs Secondary pulmonary hypertension Secondary pulmonary hypertension Sleep apnea Stage 4 very severe COPD by GOLD classification Stage 4 very severe COPD by GOLD classification Wears glasses Home Medications finasteride 5 mg tablet 5 mg PO DAILY Check with primary doctor 05/05/20 [History Last Taken 09/04/21] ascorbic acid (vitamin C) 500 mg tablet 1,000 mg PO DAILY Check with primary doctor 07/04/20 [History Last Taken 09/05/21] calcium carb-Ca gluc 500 mg calcium-magnesium ox-Mg gluc 250 mg tablet (Calcium Magnesium) 1 tab PO DAILY Check with primary doctor 07/04/20 [History Last Taken 09/04/21] garlic 600 mg PO DAILY Check with primary doctor 07/04/20 [History Last Taken 09/05/21] tamsulosin 0.4 mg capsule 0.8 mg PO DAILY prostate 07/04/20 [History Last Taken 09/04/21] ferrous sulfate 325 mg (65 mg iron) tablet 325 mg PO DAILY Check with primary doctor 10/09/20 [History Last Taken 09/05/21] aspirin 81 mg tablet,delayed release (Adult Low Dose Aspirin) 81 mg PO DAILY Check with primary doctor 10/24/20 [History Last Taken 09/04/21] omeprazole 20 mg capsule,delayed release 20 mg PO QHS GERD 07/15/21 [History Last Taken 09/04/21] albuterol sulfate 90 mcg/actuation aerosol inhaler 2 puff inhalation Q6H PRN shortness of breath or wheezing #18 grams 08/08/21 [Rx Last Taken 09/05/21] tiotropium bromide 2.5 mcg/actuation mist for inhalation (Spiriva Respimat) 2 inh inhalation DAILY sob #3 ea 10/21/21 [Rx Last Taken Unknown] budesonide-formoterol HFA 160 mcg-4.5 mcg/actuation aerosol inhaler (Symbicort) 2 puff inhalation BID Check with primary doctor 01/24/22 [History Last Taken Unknown] furosemide 40 mg tablet (Lasix) 40 mg PO DAILY Check with primary doctor 01/24/22 [History Last Taken Unknown] metoprolol tartrate 25 mg tablet 25 mg PO BID Check with primary doctor 01/24/22 [History Last Taken Unknown] Allergy/AdvReac Type Severity Reaction Status Date / Time No Known Allergies Allergy Verified 01/24/22 11:19 Family History Mother Cancer stomach Father Heart disease Brother Cancer Surgical History History of surgery of head Hx of cataract surgery Hx of colonoscopy Social History Smoking Status: Former smoker pack-years: 60 Tobacco: How many years used: 30 alcohol intake: never substance use type: does not use caffeine: Yes Type: coffee Number of servings: 4 what type of physical activity do you participate in: none frequency: does not exercise ROS Constitutional Constitutional: Denies chills, fatigue, fever(s) or headache(s) Eyes Eyes: Denies blurry vision or change in vision ENT HEENT: Denies dizziness, dysphagia, epistaxis or headache(s) Cardiovascular Cardiovascular: Reports dyspnea and edema Respiratory/Chest Respiratory/Chest: Reports dyspnea Gastrointestinal Gastrointestinal: Denies abdominal pain, diarrhea, nausea or vomiting Genitourinary Genitourinary: Reports hematuria Musculoskeletal Musculoskeletal: Denies arthralgias, back pain or joint pain Integumentary Integumentary: Denies lesions, rash or skin ulcer Neurologic Neurologic: Denies abnormal gait or abnormal speech Psychiatric Psychiatric: Denies anxiety or depression Endocrine Endocrinology: Denies fatigue or polydipsia Hematologic/Lymphatic Hematologic/Lymphatic: Denies easy bleeding or easy bruising Physical Exam Const alert and no apparent distress General Appearance: cooperative and on BiPAP Nutritional Appearance: morbidly obese HEENT normocephalic and head/scalp atraumatic Eyes PERRL and EOMs intact bilaterally Neck supple General: trachea midline Chest inspection of chest normal Resp Resp Narrative: Globally diminished air movement throughout all lung mcclure without appreciable wheezes, rales or rhonchi. Cardio regular rate and regular rhythm GI soft to palpation and non-tender Inspection: abdominal distention Extremity General Extremity: edema bilateral lower extremity; Negative for clubbing Skin no rashes or lesions noted Neuro CN's II-XII intact bilaterally, moves all extremities and no focal motor deficits Psych cooperative and affect normal Lab / Micro Data Result Diagrams: 01/25/22 03:20 01/25/22 03:20 Labs: Laboratory Results - last 24 hr 01/24/22 11:40: WBC 11.7 H, RBC 4.03 L, Hgb 11.7 L, Hct 40.8, MCV 101.2 H, MCH 29.0, MCHC 28.7 L, RDW Std Deviation 50.9 H, RDW Coeff of Earle 13.6, Plt Count 277, MPV 9.7, Immature Gran % (Auto) 2.800 H, Neut % (Auto) 82.4 H, Lymph % (Auto) 6.9 L, Divide % (Auto) 6.9, Eos % (Auto) 0.4, Baso % (Auto) 0.6, Absolute Neuts (auto) 9.6 H, Absolute Lymphs (auto) 0.80 L, Nucleated RBC % 0 01/24/22 11:40: Sodium 143, Potassium 4.1, Chloride 93 L, Carbon Dioxide > 45.0 H*, Anion Gap TNP, BUN 21 H, Creatinine 0.64 L, Estim Creat Clear Calc 58.94, Est GFR (MDRD) Af Amer 160, Est GFR (MDRD) Non-Af 132, BUN/Creatinine Ratio 33.1 H, Glucose 109 H, Calcium 9.1, Troponin I High Sens 20 01/24/22 11:40: B-Natriuretic Peptide 69.0 01/24/22 11:40: Phosphorus 2.9, Magnesium 2.4 01/24/22 15:15: Troponin I High Sens 16 01/25/22 03:20: WBC 11.1 H, RBC 3.71 L, Hgb 10.5 L, Hct 37.5 L, MCV 101.1 H, MCH 28.3, MCHC 28.0 L, RDW Std Deviation 51.1 H, RDW Coeff of Earle 13.8, Plt Count 265, MPV 9.9, Immature Gran % (Auto) 0.500, Neut % (Auto) 94.9 H, Lymph % (Auto) 3.1 L, Divide % (Auto) 1.4, Eos % (Auto) 0.0, Baso % (Auto) 0.1, Absolute Neuts (auto) 10.6 H, Absolute Lymphs (auto) 0.34 L, Nucleated RBC % 0, Differential Comment SCANNED 01/25/22 03:20: Sodium 140, Potassium 3.9, Chloride 86 L, Carbon Dioxide > 45.0 H*, Anion Gap TNP, BUN 23 H, Creatinine 0.70, Estim Creat Clear Calc 58.94, Est GFR (MDRD) Af Amer 144, Est GFR (MDRD) Non-Af 119, BUN/Creatinine Ratio 33.1 H, Glucose 181 H, Calcium 8.8, Triglycerides 45, Cholesterol 176, LDL Cholesterol 107, VLDL Cholesterol 9, HDL Cholesterol 60, TSH 0.62 Micro: Microbiology 01/24/22 16:30 Mucosa - Nasopharyngeal Influenza Types A,B Direct FA (CHIP) - Final 01/24/22 11:40 Nasal Secretion SARS-CoV-2 Antigen (Rapid) - Final ABG Data ABG results: ABG 07/02/22 07/02/22 12:17 15:55 Specimen Type ART ART Sample Site L Radial L Radial pH 7.29 L 7.29 L Bicarbonate Actual 50.8 H 46.7 H Total CO2 > 50 50 Base Excess 24 H 20 H O2 Saturation 95 96 O2 % 50 ABG pCO2 106.2 H* 97.8 H* ABG pO2 96 97 Mahesh Test Positive Respiration Rate 12 O2 Delivery Device BiPAP Liter Flow 5.0 Vent Mode BiLevel POC PEEP 4 Crit Call To/Read Back Yes Yes Blood Gas Notified Whom estiven Clinical Comments bipap Radiology Impression Chest X-Ray 01/24/22 11:29 IMPRESSION: Chronic interstitial changes with superimposed interstitial edema and stable blunting of both costophrenic angles. Follow-up recommended to ensure resolution Electronically Signed: Hans Sheikh MD at 13:09 EDT , Charges/Coding Visit Charges Inpatient E&M: 22238 Init Hosp L3
[2022-01-25] MEDS: Ascorbic Acid 500 MG Tablet 1000 MG PO (09:08)
[2022-01-25] MEDS: Metoprolol Tartrate 25 MG Tablet PO ×2 (09:08→22:02)
[2022-01-25] MEDS: guaiFENesin 1,200 MG Tablet 1200 MG PO ×2 (09:09→22:02)
[2022-01-25] MEDS: Finasteride 5 MG Tablet PO (09:09)
[2022-01-25] MEDS: Azithromycin 250 MG Tablet 500 MG PO (09:09)
[2022-01-25] MEDS: Aspirin E.C. 81 MG Tablet PO (09:10)
[2022-01-25] MEDS: Tamsulosin HCl 0.4 MG Capsule 0.8 MG PO (09:10)
--- NOTE | 2022-01-25 09:32 | PCM.PN.HOSP ---
Subjective Subjective Follow-up for acute combined respiratory failure secondary to heart failure exacerbation Patient shortness of breath is better. No chest pain. BiPAP was taken off in the morning patient on nasal cannula. Objective Data Objective Data Vital Signs: Vital Signs Temp Pulse Resp BP Pulse Ox O2 Del Method O2 Flow Rate 96.9 F L 104 H 24 H 140/92 H 90 Nasal Cannula 6 01/25/22 08:00 01/25/22 09:08 01/25/22 09:00 01/25/22 09:08 01/25/22 09:00 01/25/22 09:00 01/25/22 09:00 FiO2 35 01/25/22 08:00 Oxygen Flow Rate (L/min) 6 Oxygen Delivery Method Nasal Cannula Weight: 312 lb 6.32 oz Body Mass Index (BMI) 51.0 Intake & Output: Intake and Output for Last 24 Hours 01/23/22 01/24/22 01/25/22 23:59 23:59 23:59 Intake Total 125.93 / 126.93 209 / 209 Output Total 2115 / 2265 775 / 775 Balance -1988..566 / -566 Lab / Micro Data Result Diagrams: 01/25/22 03:20 01/25/22 03:20 Labs: Laboratory Results - last 24 hr 01/24/22 11:40: WBC 11.7 H, RBC 4.03 L, Hgb 11.7 L, Hct 40.8, MCV 101.2 H, MCH 29.0, MCHC 28.7 L, RDW Std Deviation 50.9 H, RDW Coeff of Earle 13.6, Plt Count 277, MPV 9.7, Immature Gran % (Auto) 2.800 H, Neut % (Auto) 82.4 H, Lymph % (Auto) 6.9 L, Dent % (Auto) 6.9, Eos % (Auto) 0.4, Baso % (Auto) 0.6, Absolute Neuts (auto) 9.6 H, Absolute Lymphs (auto) 0.80 L, Nucleated RBC % 0 01/24/22 11:40: Sodium 143, Potassium 4.1, Chloride 93 L, Carbon Dioxide > 45.0 H*, Anion Gap TNP, BUN 21 H, Creatinine 0.64 L, Estim Creat Clear Calc 58.94, Est GFR (MDRD) Af Amer 160, Est GFR (MDRD) Non-Af 132, BUN/Creatinine Ratio 33.1 H, Glucose 109 H, Calcium 9.1, Troponin I High Sens 20 01/24/22 11:40: B-Natriuretic Peptide 69.0 01/24/22 11:40: Phosphorus 2.9, Magnesium 2.4 01/24/22 15:15: Troponin I High Sens 16 01/25/22 03:20: WBC 11.1 H, RBC 3.71 L, Hgb 10.5 L, Hct 37.5 L, MCV 101.1 H, MCH 28.3, MCHC 28.0 L, RDW Std Deviation 51.1 H, RDW Coeff of Earle 13.8, Plt Count 265, MPV 9.9, Immature Gran % (Auto) 0.500, Neut % (Auto) 94.9 H, Lymph % (Auto) 3.1 L, Dent % (Auto) 1.4, Eos % (Auto) 0.0, Baso % (Auto) 0.1, Absolute Neuts (auto) 10.6 H, Absolute Lymphs (auto) 0.34 L, Nucleated RBC % 0, Differential Comment SCANNED 01/25/22 03:20: Sodium 140, Potassium 3.9, Chloride 86 L, Carbon Dioxide > 45.0 H*, Anion Gap TNP, BUN 23 H, Creatinine 0.70, Estim Creat Clear Calc 58.94, Est GFR (MDRD) Af Amer 144, Est GFR (MDRD) Non-Af 119, BUN/Creatinine Ratio 33.1 H, Glucose 181 H, Calcium 8.8, Triglycerides 45, Cholesterol 176, LDL Cholesterol 107, VLDL Cholesterol 9, HDL Cholesterol 60, TSH 0.62 Micro: Microbiology 01/24/22 16:30 Mucosa - Nasopharyngeal Influenza Types A,B Direct FA (CHIP) - Final 01/24/22 11:40 Nasal Secretion SARS-CoV-2 Antigen (Rapid) - Final ABG Data ABG results: ABG 01/24/22 01/24/22 12:17 15:55 Specimen Type ART ART Sample Site L Radial L Radial pH 7.29 L 7.29 L Bicarbonate Actual 50.8 H 46.7 H Total CO2 > 50 50 Base Excess 24 H 20 H O2 Saturation 95 96 O2 % 50 ABG pCO2 106.2 H* 97.8 H* ABG pO2 96 97 Mahesh Test Positive Respiration Rate 12 O2 Delivery Device BiPAP Liter Flow 5.0 Vent Mode BiLevel POC PEEP 4 Crit Call To/Read Back Yes Yes Blood Gas Notified Whom estiven Clinical Comments bipap Radiography Diagnostic Testing: Radiology Impression Chest X-Ray 01/24/22 11:29 IMPRESSION: Chronic interstitial changes with superimposed interstitial edema and stable blunting of both costophrenic angles. Follow-up recommended to ensure resolution Electronically Signed: Hans Sheikh MD at 13:09 EDT , Chest X-Ray 01/25/22 05:55 IMPRESSION: Mild interstitial edema and trace effusions, slightly decreased from prior exam. Electronically Signed: Harman Terry MD at 7:22 EDT , KUB X-Ray 01/25/22 05:55 IMPRESSION: Moderate to large colonic stool burden with mildly distended distal small bowel, compatible with constipation appropriate setting. Radiographic follow-up recommended to exclude developing distal small bowel obstruction. Electronically Signed: Harman Terry MD at 7:27 EDT , Physical Exam Narrative Physical exam General: Alert, Oriented x3, Cooperative HEENT: Atraumatic, PERRLA, EOMI, Normocephalic Oral: Oral mucosa dry. Neck: Supple, No JVD, Negative Carotid Bruits Lungs: Air entry severely diminished bilaterally. Bilateral wheezing/crepitations is decreased. Cardiovascular: Sinus rhythm, Normal S1, Normal S2, No murmurs Abdomen: Bowel Sounds Present, Soft, Non Tender, Non-Distended. Mild ascites : No renal angle tenderness. No suprapubic tenderness. Extremities: Bilateral thigh pitting edema, Capillary Refill Less than 3 Seconds Skin: No rashes, No breakdown Musculoskeletal: No Tenderness to Palpation of Joints or Extremities Neurological: Cranial nerves II-XII grossly intact, DTR 2+/4 and Symmetrical, Neuro grossly intact Psych/Mental Status: Flat affect Assessment & Plan Assessment/Plan (1) Acute and chronic respiratory failure with hypercapnia: PLAN: Plan This is 72-year-old gentleman admitted with severe shortness of breath progressively worsening for 1 week consistent with acute on chronic hypoxic and hypercarbic respiratory failure. 1. Acute on chronic combined hypoxic hypercarbic respiratory failure mostly due to CHF exacerbation/COPD exacerbation: ABG done in ER 7.2 on 5 L of oxygen through nasal cannula. Patient is being admitted in ICU on BiPAP. Talked in detail with patient and regarding intubation and ventilator but they do not want it. Technology Education Teacher consultation for further management. 01/25: Technology Education Teacher consult reviewed and appreciated. Lasix has been transitioned to IV drip to bolus. Incentive spirometry. Mild traumatic hematuria due to Cordis catheterization: Cruz catheter was tried by nurse but was failed therefore nursing printing supervisor INSERTED Coude's catheter after urojet. Patient had hematuria which has almost resolved. Last night and morning Lovenox were held. Continue from evening 2. Acute on chronic HFpEF: Patient had last echo in July 2020 reported as EF 55%, technically limited study because of body habitus, normal left atrium. Unable to estimate RVSP. Patient was given Lasix 40 mg IV in ED and started on Lasix drip as patient did not responded as an outpatient with increasing diuretic. BUN/creatinine 21/0.64. Potassium 4.1, magnesium 2.4 and phosphorus 2.9. 01/25: Dial Buffer consult reviewed. On metoprolol. Echo is ordered need further evaluation in future for further heart failure agents nitrates, spironolactone or afterloading agent, MEG/ARB if blood pressure permits 3. Mild COPD exacerbation, COPD Gold stage IV with history of obstructive sleep apnea/OSH on CPAP at home, 9 cmH2O.: Patient does not have change in cough or sputum production but is more short of breath with wheezing: Started on IV Solu-Medrol, scheduled DuoNeb bronchodilator, Zithromax. COVID-19 rapid antigen negative. Influenza test ordered. 7/3 continue IV Solu-Medrol and bronchodilator and Zithromax.Influenza test negative. 4. Chronic macrocytic anemia: Patient on baseline. Home iron continued 5. BPH -Continue Flomax 6. GERD -Continue PPI 7. Hypertension: Patient on CHF exacerbation therefore resume beta-robert when patient is euvolemic. -Continue metoprolol 8. Paroxysmal A. fib: Patient currently in sinus rhythm. Not on anticoagulation. 9. Morbid obesity: BMI 51.0 kg per metered square. During previous admission it was 49.8 kg per metered square in August 2021. Enoxaparin 40 mg SQ twice daily for VTE prophylaxis. Living will/advanced directive/end of life care: Patient does have living will or advanced directive. His is power of collections attorney of health, discussed near the bedside. After discussion of benefits/risks procedures involved with full code, DNR CC arrest and DNR CC, the patient and his opted for DNRCC arrest, no intubation. Patient and his does not want artificial life support including intubation, tube feed, ventilator and/chest compression, central venous catheter, vasopressor and DC shock if needed Total time spent in [id number] encounter in discussion of advanced directive 16 minutes. Microbiology Past 72 Hours 01/24/22 16:30 Mucosa - Nasopharyngeal Influenza Types A,B Direct FA (CHIP) - Final 01/24/22 11:40 Nasal Secretion SARS-CoV-2 Antigen (Rapid) - Final Laboratory Results 01/24/22 11:40: Phosphorus 2.9, Magnesium 2.4 01/24/22 12:17: Specimen Type ART, Sample Site L Radial, pH 7.29 L, Bicarbonate Actual 50.8 H, Total CO2 > 50, Base Excess 24 H, O2 Saturation 95, ABG pCO2 106.2 H*, ABG pO2 96, Liter Flow 5.0, Crit Call To/Read Back Yes 01/24/22 15:15: Troponin I High Sens 16 01/24/22 15:55: Specimen Type ART, Sample Site L Radial, pH 7.29 L, Bicarbonate Actual 46.7 H, Total CO2 50, Base Excess 20 H, O2 Saturation 96, O2 % 50, ABG pCO2 97.8 H*, ABG pO2 97, Mahesh Test Positive, Respiration Rate 12, O2 Delivery Device BiPAP, Vent Mode BiLevel, POC PEEP 4, Crit Call To/Read Back Yes, Blood Gas Notified Whom estiven, Clinical Comments bipap 01/25/22 03:20: WBC 11.1 H, RBC 3.71 L, Hgb 10.5 L, Hct 37.5 L, MCV 101.1 H, MCH 28.3, MCHC 28.0 L, RDW Std Deviation 51.1 H, RDW Coeff of Earle 13.8, Plt Count 265, MPV 9.9, Immature Gran % (Auto) 0.500, Neut % (Auto) 94.9 H, Lymph % (Auto) 3.1 L, Dent % (Auto) 1.4, Eos % (Auto) 0.0, Baso % (Auto) 0.1, Absolute Neuts (auto) 10.6 H, Absolute Lymphs (auto) 0.34 L, Nucleated RBC % 0, Differential Comment SCANNED 01/25/22 03:20: Sodium 140, Potassium 3.9, Chloride 86 L, Carbon Dioxide > 45.0 H*, Anion Gap TNP, BUN 23 H, Creatinine 0.70, Estim Creat Clear Calc 58.94, Est GFR (MDRD) Af Amer 144, Est GFR (MDRD) Non-Af 119, BUN/Creatinine Ratio 33.1 H, Glucose 181 H, Calcium 8.8, Triglycerides 45, Cholesterol 176, LDL Cholesterol 107, VLDL Cholesterol 9, HDL Cholesterol 60, TSH 0.62 Charges/Coding Visit Charges Inpatient E&M: 34819 Subs Hosp L3
[2022-01-25] MEDS: Ferrous Sulfate 325 MG Tablet PO (11:32)
--- NOTE | 2022-01-25 13:24 | PN.CARD_ITS ---
Subjective Subjective The patient appears to be more awake, alert, and interactive today. He has family members who are present with him believe he appears to be, despite still requiring O2 therapy/BiPAP therapy, breathing somewhat more comfortably today. Objective Data Vital Signs: Vital Signs Temp Pulse Resp BP Pulse Ox O2 Del Method O2 Flow Rate 96.9 F L 86 25 H 129/81 H 94 Nasal Cannula 6 01/25/22 10:00 01/25/22 12:00 01/25/22 11:50 01/25/22 10:00 01/25/22 10:29 01/25/22 10:00 01/25/22 10:29 FiO2 35 01/25/22 08:00 Oxygen Flow Rate (L/min) 6 Oxygen Delivery Method Nasal Cannula Weight: 312 lb 6.32 oz Body Mass Index (BMI) 51.0 Intake & Output: Intake and Output for Last 24 Hours 01/23/22 01/24/22 01/25/22 23:59 23:59 23:59 Intake Total 125.93 / 126.93 694.32 / 694.32 Output Total 2115 / 2265 1230 / 1230 Balance -1989.07 / -2138.07 -535.68 / -535.68 Lab / Micro Data Result Diagrams: 01/25/22 03:20 01/25/22 03:20 Labs: Laboratory Results - last 24 hr 01/24/22 11:40: Phosphorus 2.9, Magnesium 2.4 01/24/22 15:15: Troponin I High Sens 16 01/25/22 03:20: WBC 11.1 H, RBC 3.71 L, Hgb 10.5 L, Hct 37.5 L, MCV 101.1 H, MCH 28.3, MCHC 28.0 L, RDW Std Deviation 51.1 H, RDW Coeff of Earle 13.8, Plt Count 265, MPV 9.9, Immature Gran % (Auto) 0.500, Neut % (Auto) 94.9 H, Lymph % (Auto) 3.1 L, [place] % (Auto) 1.4, Eos % (Auto) 0.0, Baso % (Auto) 0.1, Absolute Neuts (auto) 10.6 H, Absolute Lymphs (auto) 0.34 L, Nucleated RBC % 0, Differential Comment SCANNED 01/25/22 03:20: Sodium 140, Potassium 3.9, Chloride 86 L, Carbon Dioxide > 45.0 H*, Anion Gap TNP, BUN 23 H, Creatinine 0.70, Estim Creat Clear Calc 58.94, Est GFR (MDRD) Af Amer 144, Est GFR (MDRD) Non-Af 119, BUN/Creatinine Ratio 33.1 H, Glucose 181 H, Calcium 8.8, Triglycerides 45, Cholesterol 176, LDL Cholesterol 107, VLDL Cholesterol 9, HDL Cholesterol 60, TSH 0.62 Micro: Microbiology 01/24/22 16:30 Mucosa - Nasopharyngeal Influenza Types A,B Direct FA (CHIP) - Final 01/24/22 11:40 Nasal Secretion SARS-CoV-2 Antigen (Rapid) - Final ABG Data ABG results: ABG 01/24/22 01/24/22 12:17 15:55 Specimen Type ART ART Sample Site L Radial L Radial pH 7.29 L 7.29 L Bicarbonate Actual 50.8 H 46.7 H Total CO2 > 50 50 Base Excess 24 H 20 H O2 Saturation 95 96 O2 % 50 ABG pCO2 106.2 H* 97.8 H* ABG pO2 96 97 Mahesh Test Positive Respiration Rate 12 O2 Delivery Device BiPAP Liter Flow 5.0 Vent Mode BiLevel POC PEEP 4 Crit Call To/Read Back Yes Yes Blood Gas Notified Whom estiven Clinical Comments bipap Cardiology Labs/Tests 01/24/22 11:40: Phosphorus 2.9, Magnesium 2.4 01/24/22 12:17: pH 7.29 L, Bicarbonate Actual 50.8 H, Base Excess 24 H, O2 Saturation 95, ABG pCO2 106.2 H*, ABG pO2 96 01/24/22 15:55: pH 7.29 L, Bicarbonate Actual 46.7 H, Base Excess 20 H, O2 Saturation 96, ABG pCO2 97.8 H*, ABG pO2 97, Mahesh Test Positive 01/25/22 03:20: WBC 11.1 H, RBC 3.71 L, Hgb 10.5 L, Hct 37.5 L, MCV 101.1 H, MCH 28.3, MCHC 28.0 L, Plt Count 265, MPV 9.9, Immature Gran % (Auto) 0.500, Neut % (Auto) 94.9 H, Lymph % (Auto) 3.1 L, [place] % (Auto) 1.4, Eos % (Auto) 0.0, Baso % (Auto) 0.1, Absolute Neuts (auto) 10.6 H, Nucleated RBC % 0 01/25/22 03:20: Sodium 140, Potassium 3.9, Chloride 86 L, Carbon Dioxide > 45.0 H*, Anion Gap TNP, BUN 23 H, Creatinine 0.70, Est GFR (MDRD) Af Amer 144, Est GFR (MDRD) Non-Af 119, BUN/Creatinine Ratio 33.1 H, Glucose 181 H, Calcium 8.8, Triglycerides 45, Cholesterol 176, LDL Cholesterol 107, VLDL Cholesterol 9, HDL Cholesterol 60 Rhythm: Sinus rhythm Radiography Diagnostic Testing: Radiology Impression Chest X-Ray 01/25/22 05:55 IMPRESSION: Mild interstitial edema and trace effusions, slightly decreased from prior exam. Electronically Signed: Harman Terry MD at 7:22 EDT Reading Location ID and State: [facility] / [place] Tel , Service support , KUB X-Ray 01/25/22 05:55 IMPRESSION: Moderate to large colonic stool burden with mildly distended distal small bowel, compatible with constipation appropriate setting. Radiographic follow-up recommended to exclude developing distal small bowel obstruction. Electronically Signed: Harman Terry MD at 7:27 EDT Reading Location ID and State: [facility] / [place] Tel , Service support , Physical Exam Narrative This is a 72-year-old obese white male who appears to be somewhat lethargic at this time wearing a BiPAP mask. Const alert HEENT normocephalic and head/scalp atraumatic Neck no JVD Carotids: normal carotid upstroke Resp Auscultation: wheezes throughout (Somewhat less prominent than yesterday) and diminished lung sounds bilateral lower Cardio regular rhythm, S1 normal heart sound and S2 normal heart sound Cardio Narrative: Diminished cardiac tones Rate: regular rate GI GI Narrative: Large abdomen: Positive bowel sounds Extremity General Extremity: edema bilateral lower extremity (Bilateral lower extremities: Currently in support stockings) Details: severe Assessment & Plan Assessment/Plan (1) Diastolic CHF, chronic: PLAN: The patient presents with concerns of acute on chronic diastolic CHF or heart failure with preserved ejection fraction. This is been raised based upon the patient's symptoms as well as the patient demonstrating evidence of volume overload with respect to concerns of pulmonary edema and peripheral edema. Of note, the patient's BNP level, which is a high negative predictive value test, is reported as negative. This would raise concerns that the patient's symptoms and findings may be noncardiac in etiology. However, it is also known that a low BNP level can occur in obesity which the patient demonstrates. Thus at the present time the patient is going to continue to be observed. He is continuing medical therapy for concerns of heart failure with preserved ejection fraction-based upon his previous transthoracic echocardiogram. This includes IV furosemide therapy which he initially received as a continuous infusion which is going to be transition to pulsed dosed therapy. He may need other agents as well over time to assist with this such as nitrates, additional diuretics such as Aldactone/spironolactone, afterload reducing agents, etc. The patient is currently on a beta-robert. His clinical course may assist as to whether or not he remains on the same beta-robert or a different beta- robert over time. He will also be asked to have future reevaluation with a transthoracic echocardiogram. (2) Atrial fibrillation: PLAN: The patient has a history of atrial fibrillation as noted. He appears to be in sinus rhythm at this time. He will continue to be monitored. If he has recurrence of atrial fibrillation he will need adjustment of rate limiting medications, antiarrhythmic therapy, as well as anticoagulant therapy. (3) Acute and chronic respiratory failure with hypercapnia: PLAN: The patient presented with acute on chronic respiratory failure with hy percapnia as noted. He is currently in the ICU being treated medically. He is currently wearing BiPAP. As he appears to be somewhat improved today it appears he is going to be transition to the PCU. (4) Stage 4 very severe COPD by GOLD classification: PLAN: The patient has a history of significant COPD. He will continue evaluation care per internal medicine and pulmonology/critical care medicine. (5) Secondary pulmonary hypertension: PLAN: The patient has a history of secondary pulmonary hypertension. It is thought this is related to his underlying pulmonary disease process. Request has been made for transthoracic echocardiogram to be performed which may, depending upon the image quality in the information obtained, be able to provide an estimate of his right-sided/pulmonary pressures. Addt'l Comments The patient's case has been discussed and reviewed with the patient and his family members present and Dr. Thomas. This note was generated using a voice recognition system and there may be incorrect words, spelling or punctuation that were not noted when reviewing the office note prior to saving. Procedure Criteria Type of Procedure Procedure Type: Elective Elective Risks - COVID COVID Risk Discussion: The surgeon/proceduralist and patient have discussed in detail the risk of exposure to and/or potential harm posed by the COVID-19 virus with having a surgery/procedure at this time versus the risk of delaying the surgery/procedure. It is not possible to know either the risk of delaying the surgery or procedure or chance of getting an infection with perfect accuracy, but a joint decision was made between the patient and the surgeon/proceduralist to proceed at this time with the scheduled surgery/procedure as indicated on the consent form.
[2022-01-25] MEDS: Furosemide 40 MG/4 ML Vial IV (17:12)
[2022-01-25] MEDS: Enoxaparin 40 MG/0.4 ML Syringe SC (21:58)
[2022-01-25] MEDS: Pantoprazole Sodium 40 MG Tablet PO (22:02)
[2022-01-26] VITALS (18 sets, daily range): BP systolic 113–135; BP diastolic 61–93; PULSE 62–88; RESP 18–95; TEMP 36.1–36.4; O2SAT 86–97
[2022-01-26] MEDS: Ipratropium/Albuterol Sulfate 3 ML AMPUL.NEB INHALATION ×6 (03:15→23:41)
[2022-01-26] MEDS: 0.9% Saline Lock 10 ML Syringe IV ×4 (05:39→21:06)
[2022-01-26 05:42] LABS: Absolute Neutrophil Count 11.8 X10^3/uL (2.0-7.7); Basophil# 0.01 X10^3/uL; Basophil% 0.1 % (0-1); Hematocrit 37.5 % (40-54); Lymphocyte % 5.4 % (19-41); Mean Corp Hgb Conc 29.3 g/dL (32-36); Mean Corpuscular Hgb 28.6 pg (27.0-32.0); Mean Corpuscular Volume 97.7 fL (80-94); Mean Platelet Vol. 9.9 fl (6.2-12.0); Monocyte# 0.37 X10^3/uL; Monocyte% 2.8 % (0-10); NRBC Flagged by Analyzer 0 % (0-5); Neutrophil # 11.81 X10^3/uL (2.7-7.7); Neutrophil % 90.9 % (47-70); Platelet Count 259 K/mm3 (150-450); RBC Distribution Width CV 14.2 % (11.6-14.6); Red Blood Count 3.84 M/mm3 (4.6-6.2)
--- NOTE | 2022-01-26 05:55 | ECHOCS_ITS ---
Reason For Study: HF Exacerbation Procedure This was a 2D Doppler, Color Flow transthoracic echocardiogram. The study was technically difficult. Contrast injection was performed. Exam performed portable in patient room. Left Ventricle Moderate concentric left ventricular hypertrophy. Based upon the 2D echocardiographic and contrast enhanced images obtained there appears to be grossly normal left ventricular size, wall motion, and systolic function. The estimated ejection fraction is 65 %. No evidence for diastolic dysfunction. Right Ventricle Based upon the 2D echocardiographic images obtained the right ventricle appears to be mildly dilated with grossly normal right ventricular systolic function. Atria The left atrium is mildly enlarged. Normal right atrium. No doppler evidence for ASD. Mitral Valve There is no mitral annular calcification. Normal mitral valve. Trivial mitral valve insufficiency. Tricuspid Valve Normal tricuspid valve. Trivial tricuspid valve insufficiency. Right ventricular systolic pressure estimated to be 41 mmHg. Aortic Valve Trisinus/trileaflet aortic valve. Mild focal aortic valve calcification. Pulmonic Valve The pulmonic valve is not well visualized. Great Vessels Normal sized aortic root. Pericardium/Pleural No pericardial effusion. Medication Diluted definity 2ml given slow IV push to enhance endocardial definition. MMode/2D Measurements & Calculations LVIDd: 5.7 cm IVSd: 1.5 cm LVOT diam: 2.1 cm LVIDs: 3.3 cm LVPWd: 1.6 cm RVDd: 3.6 cm FS: 42.6 % LVOT area: 3.4 cm2 Ao root diam: 3.4 cm LAV(MOD-bp): 57.1 ml LA A4 area: 20.7 cm2 LAV(MOD-bp) Indexed: 24.1 ml/m2 LAV(MOD-sp2): 56.1 ml LAV(MOD-sp4): 46.9 ml LA dimension(2D): 4.3 cm RA A4 area: 16.3 cm2 Doppler Measurements & Calculations MV E max chinedu: 79.3 cm/sec Lat Peak E' Chinedu: 9.9 cm/sec Med Peak E' Chinedu: 10.2 cm/sec MV A max chinedu: 99.3 cm/sec E/E' lat: 8.0 E/E' med: 7.8 MV E/A: 0.80 Ao V2 max: 227.0 cm/sec LV V1 max: 137.0 cm/sec SV(LVOT): 77.4 ml Ao max P.6 mmHg LV V1 max P.5 mmHg Ao V2 mean: 140.7 cm/sec LV V1 mean P.7 mmHg Ao mean P.2 mmHg LV V1 mean: 90.7 cm/sec Ao V2 VTI: 42.6 cm LV V1 VTI: 22.5 cm REGINE(I,D): 1.8 cm2 REGINE(V,D): 2.1 cm2 PA V2 max: 135.1 cm/sec TR max chinedu: 286.2 cm/sec TR max P.8 mmHg ECHO/Echo Complete W/ Contrast Interpretation Summary The study was technically difficult. Contrast injection was performed. Based upon the 2D echocardiographic and contrast enhanced images obtained there appears to be grossly normal left ventricular size, wall motion, and systolic function. The estimated ejection fraction is 65 %. Moderate concentric left ventricular hypertrophy. Based upon the 2D echocardiographic images obtained the right ventricle appears to be mildly dilated with grossly normal right ventricular systolic function. The left atrium is mildly enlarged. Trivial mitral valve insufficiency. Trivial tricuspid valve insufficiency. Mild focal aortic valve calcification. Right ventricular systolic pressure estimated to be 41 mmHg. No evidence for diastolic dysfunction. Ordering Physician: Galindo Thomas Referring Physician: Juvenal Trivedi Performed By: Lisa Delgado, RDDON, RVT
[2022-01-26 06:15] LABS: BUN 44 mg/dL (7-18); BUN/Creat Ratio 57.3 RATIO (10-20); Calcium,Total 9.1 mg/dL (8.5-10.1); Carbon Dioxide > 45.0 mmol/L (21.0-32.0); Chloride 89 mmol/L (98-107); Creatinine, Serum 0.77 mg/dL (0.70-1.30); EST Glomerular Filtration Rate 106 mL/min (>60); Est Glom Filt Rate - Afr Amer 128 mL/min (>60); Estimated Creatinine Clearance 58.94 ml/min; Glucose 173 mg/dL (74-106); Magnesium 2.6 mg/dL (1.6-2.6); Potassium 3.9 mmol/L (3.5-5.1); Sodium Level 140 mmol/L (136-145)
--- NOTE | 2022-01-26 06:48 | PN.CARD_ITS ---
Subjective Subjective The patient is aware he cannot alert. He has been up in the bedside chair. He is currently without his BiPAP device. He states overall he feels his breathing is much better compared to when he arrived to the hospital. He also believes his lower extremity edema has improved. Objective Data Vital Signs: Vital Signs Temp Pulse Resp BP Pulse Ox O2 Del Method O2 Flow Rate 97.2 F L 73 18 135/93 H 95 CPAP 6 01/26/22 03:28 01/26/22 06:37 01/26/22 03:28 01/26/22 03:28 01/26/22 03:28 01/26/22 03:28 01/25/22 22:00 FiO2 35 01/25/22 08:00 Oxygen Flow Rate (L/min) 6 Oxygen Delivery Method CPAP Weight: 312 lb 6.32 oz Body Mass Index (BMI) 51.0 Intake & Output: Intake and Output for Last 24 Hours 01/24/22 01/25/22 01/26/22 23:59 23:59 23:59 Intake Total 125.93 / 126.93 1474.32 / 1474.32 150 / 150 Output Total 2115 / 2265 2305 / 2305 800 / 800 Balance -1989.07 / -2138.07 -830.68 / -830.68 -650 / -650 Lab / Micro Data Result Diagrams: 01/26/22 05:09 01/26/22 05:09 Labs: Laboratory Results - last 24 hr 01/26/22 05:09: WBC 13.0 H, RBC 3.84 L, Hgb 11.0 L, Hct 37.5 L, MCV 97.7 H, MCH 28.6, MCHC 29.3 L, RDW Std Deviation 51.0 H, RDW Coeff of Earle 14.2, Plt Count 259, MPV 9.9, Immature Gran % (Auto) 0.800, Neut % (Auto) 90.9 H, Lymph % (Auto) 5.4 L, [place] % (Auto) 2.8, Eos % (Auto) 0.0, Baso % (Auto) 0.1, Absolute Neuts (auto) 11.8 H, Absolute Lymphs (auto) 0.70 L, Nucleated RBC % 0 01/26/22 05:09: Sodium 140, Potassium 3.9, Chloride 89 L, Carbon Dioxide > 45.0 H*, Anion Gap TNP, BUN 44 H, Creatinine 0.77, Estim Creat Clear Calc 58.94, Est GFR (MDRD) Af Amer 128, Est GFR (MDRD) Non-Af 106, BUN/Creatinine Ratio 57.3 H, Glucose 173 H, Calcium 9.1, Magnesium 2.6 Cardiology Labs/Tests 01/26/22 05:09: WBC 13.0 H, RBC 3.84 L, Hgb 11.0 L, Hct 37.5 L, MCV 97.7 H, MCH 28.6, MCHC 29.3 L, Plt Count 259, MPV 9.9, Immature Gran % (Auto) 0.800, Neut % (Auto) 90.9 H, Lymph % (Auto) 5.4 L, [place] % (Auto) 2.8, Eos % (Auto) 0.0, Baso % (Auto) 0.1, Absolute Neuts (auto) 11.8 H, Nucleated RBC % 0 01/26/22 05:09: Sodium 140, Potassium 3.9, Chloride 89 L, Carbon Dioxide > 45.0 H*, Anion Gap TNP, BUN 44 H, Creatinine 0.77, Est GFR (MDRD) Af Amer 128, Est GFR (MDRD) Non-Af 106, BUN/Creatinine Ratio 57.3 H, Glucose 173 H, Calcium 9.1, Magnesium 2.6 Rhythm: Sinus rhythm Radiography Diagnostic Testing: Radiology Impression Chest X-Ray 01/25/22 05:55 IMPRESSION: Mild interstitial edema and trace effusions, slightly decreased from prior exam. Electronically Signed: Harman Terry MD at 7:22 EDT , KUB X-Ray 01/25/22 05:55 IMPRESSION: Moderate to large colonic stool burden with mildly distended distal small bowel, compatible with constipation appropriate setting. Radiographic follow-up recommended to exclude developing distal small bowel obstruction. Electronically Signed: Harman Terry MD at 7:27 EDT , Physical Exam Narrative This is a 72-year-old obese white male who appears to be somewhat lethargic at this time wearing a BiPAP mask. Const alert, oriented x3 and no apparent distress HEENT normocephalic, head/scalp atraumatic and hearing grossly normal bilaterally Eyes PERRL and EOMs intact bilaterally Neck full ROM and no JVD Carotids: normal carotid upstroke Resp Auscultation: wheezes throughout (Somewhat less prominent than yesterday) and diminished lung sounds bilateral lower Cardio regular rhythm, S1 normal heart sound and S2 normal heart sound Cardio Narrative: Diminished cardiac tones Rate: regular rate GI GI Narrative: Large abdomen: Positive bowel sounds Extremity General Extremity: edema bilateral lower extremity (Bilateral lower extremities: Currently in support stockings) Details: moderate Psych mental status grossly normal Assessment & Plan Assessment/Plan (1) Diastolic CHF, chronic: PLAN: The patient presents with concerns of acute on chronic diastolic CHF or heart failure with preserved ejection fraction. This is been raised based upon the patient's symptoms as well as the patient demonstrating evidence of volume overload with respect to concerns of pulmonary edema and peripheral edema. Of note, the patient's BNP level, which is a high negative predictive value test, is reported as negative. This would raise concerns that the patient's symptoms and findings may be noncardiac in etiology. However, it is also known that a low BNP level can occur in obesity which the patient demonstrates. The patient has received IV diuretics. He appears to be improving with respect to his overall symptoms and physical examination findings. He will continue medical therapy. He is pending further evaluation with a transthoracic echocardiogram. (2) Atrial fibrillation: PLAN: The patient has a history of atrial fibrillation as noted. He appears to be in sinus rhythm at this time. He will continue to be monitored. If he has recurrence of atrial fibrillation he will need adjustment of rate limiting medications, antiarrhythmic therapy, as well as anticoagulant therapy. (3) Acute and chronic respiratory failure with hypercapnia: PLAN: The patient presented with acute on chronic respiratory failure with hypercapnia as noted. He is currently wearing BiPAP with intermittent interruption for oral intake. (4) Stage 4 very severe COPD by GOLD classification: PLAN: The patient has a history of significant COPD. He will continue evaluation care per internal medicine and pulmonology/critical care medicine. (5) Secondary pulmonary hypertension: PLAN: The patient has a history of secondary pulmonary hypertension. It is thought this is related to his underlying pulmonary disease process. Request has been made for transthoracic echocardiogram to be performed which may, depending upon the image quality in the information obtained, be able to provide an estimate of his right-sided/pulmonary pressures. Addt'l Comments The patient's case has been discussed and reviewed with the patient. Procedure Criteria Type of Procedure Procedure Type: Elective Elective Risks - COVID COVID Risk Discussion: The surgeon/proceduralist and patient have discussed in detail the risk of exposure to and/or potential harm posed by the COVID-19 virus with having a surgery/procedure at this time versus the risk of delaying the surgery/procedure. It is not possible to know either the risk of delaying the surgery or procedure or chance of getting an infection with perfect accuracy, but a joint decision was made between the patient and the surgeon/proceduralist to proceed at this time with the scheduled surgery/procedure as indicated on the consent form.
[2022-01-26] MEDS: Tamsulosin HCl 0.4 MG Capsule 0.8 MG PO (08:17)
[2022-01-26] MEDS: Ascorbic Acid 500 MG Tablet 1000 MG PO (08:18)
--- NOTE | 2022-01-26 08:23 | PN.CC_ITS ---
Assessment & Plan Assessment/Plan (1) Acute on chronic respiratory failure with hypoxia and hypercapnia: PLAN: Plan RECOMMENDATIONS: 1. Change BiPAP to RASS nightly with sleep 2. Increase to Lasix 3 times daily 3. Continue scheduled bronchodilators. Transition to prednisone to complete 5 days 4. Encourage incentive spirometer use and mobilize patient as tolerated. 5. Continue appropriate DVT prophylaxis. IMPRESSIONS: 1. Acute on chronic combined respiratory failure The patient has known end-stage COPD and chronic hypoxemic respiratory failure, with what appears to be a baseline oxygen requirement of 5 to 6 L/min. The patient is already on maximum triple therapy inhaler regimen at his baseline. He has been compliant, per report, with the aforementioned medications. His symptoms, radiographic findings and response to Lasix suggest the possible implication of heart failure with preserved ejection fraction. Patient with significant improvement following diuresis. Low clinical suspicion for COPD exacerbation. Patient will be transition to prednisone to complete a 5-day burst. Okay to continue with azithromycin given productive cough. 2. Obstructive sleep apnea The patient regularly utilizes nocturnal AutoPap therapy, for which he has been apparently compliant with its use according to his last pulmonary office visit note. 3. Morbid obesity/anemia/BPH/GERD/paroxysmal atrial fibrillation Complicates care, management, recovery and prognosis. Continue home medications as indicated. This note was generated with [employer] dictation software. It may contain incorrect words, spelling, and punctuation that were not noted in checking the note before signing. Subjective Subjective Patient did well overnight. Patient subjectively feels improved compared to previous. Patient is still requiring 6 L nasal cannula to maintain saturations. Patient does report a mild cough, but feels this is improving. Patient also feels that his lower extremity edema is improving. Objective Data Objective Data Vital Signs: Vital Signs Temp Pulse Resp BP Pulse Ox O2 Del Method O2 Flow Rate 36.2 C L 88 20 H 135/93 H 92 Nasal Cannula 6 01/26/22 03:28 01/26/22 07:45 01/26/22 07:45 01/26/22 03:28 01/26/22 07:45 01/26/22 08:11 01/26/22 08:11 FiO2 95 01/26/22 08:11 Oxygen Flow Rate (L/min) 6 Oxygen Delivery Method Nasal Cannula Weight: 141.7 kg Body Mass Index (BMI) 51.0 Intake & Output: Intake and Output for Last 24 Hours 01/24/22 01/25/22 01/26/22 23:59 23:59 23:59 Intake Total 125.93 / 126.93 1474.32 / 1474.32 150 / 150 Output Total 2115 / 2265 2305 / 2305 900 / 900 Balance -1989.07 / -2138.07 -830.68 / -830.68 -750 / -750 Lab / Micro Data Attestation: I reviewed the patient's lab results. Result Diagrams: 01/26/22 05:09 01/26/22 05:09 Labs: Laboratory Results - last 24 hr 01/26/22 05:09: WBC 13.0 H, RBC 3.84 L, Hgb 11.0 L, Hct 37.5 L, MCV 97.7 H, MCH 28.6, MCHC 29.3 L, RDW Std Deviation 51.0 H, RDW Coeff of Earle 14.2, Plt Count 259, MPV 9.9, Immature Gran % (Auto) 0.800, Neut % (Auto) 90.9 H, Lymph % (Auto) 5.4 L, [place] % (Auto) 2.8, Eos % (Auto) 0.0, Baso % (Auto) 0.1, Absolute Neuts (auto) 11.8 H, Absolute Lymphs (auto) 0.70 L, Nucleated RBC % 0 01/26/22 05:09: Sodium 140, Potassium 3.9, Chloride 89 L, Carbon Dioxide > 45.0 H*, Anion Gap TNP, BUN 44 H, Creatinine 0.77, Estim Creat Clear Calc 58.94, Est GFR (MDRD) Af Amer 128, Est GFR (MDRD) Non-Af 106, BUN/Creatinine Ratio 57.3 H, Glucose 173 H, Calcium 9.1, Magnesium 2.6 Micro: Microbiology 01/24/22 16:30 Mucosa - Nasopharyngeal Influenza Types A,B Direct FA (CHIP) - Final 01/24/22 11:40 Nasal Secretion SARS-CoV-2 Antigen (Rapid) - Final Radiography Diagnostic Testing: Chest x-ray shows improvement bilaterally Rhythm Strip Rhythm Strip: Sinus Rhythm Rate: 78 Ectopy: None Physical Exam Const alert and no apparent distress Constitutional Narrative: Mild conversational dyspnea on nasal cannula General Appearance: cooperative Nutritional Appearance: morbidly obese HEENT normocephalic and head/scalp atraumatic Eyes PERRL and EOMs intact bilaterally Neck supple General: trachea midline Chest inspection of chest normal Resp Resp Narrative: Globally diminished air movement throughout all lung mcclure without appreciable wheezes, rales or rhonchi. Cardio regular rate, regular rhythm, S1 normal heart sound, S2 normal heart sound, no murmurs, no rub and no gallops GI soft to palpation and non-tender Inspection: abdominal distention Extremity General Extremity: edema bilateral (3+) lower extremity; Negative for clubbing Skin no rashes or lesions noted General Skin Exam: venous stasis Neuro CN's II-XII intact bilaterally, moves all extremities and no focal motor deficits Psych cooperative and affect normal Charges/Coding Visit Charges Inpatient E&M: 89829 Subs Hosp L3
[2022-01-26] MEDS: predniSONE 20 MG Tablet 40 MG PO (08:59)
[2022-01-26] MEDS: Finasteride 5 MG Tablet PO (09:01)
[2022-01-26] MEDS: Azithromycin 250 MG Tablet 500 MG PO (09:01)
[2022-01-26] MEDS: guaiFENesin 1,200 MG Tablet 1200 MG PO ×2 (09:01→21:03)
[2022-01-26] MEDS: Metoprolol Tartrate 25 MG Tablet PO ×2 (09:01→21:02)
[2022-01-26] MEDS: Furosemide 40 MG/4 ML Vial IV ×3 (09:02→21:01)
--- NOTE | 2022-01-26 10:11 | PN.HOSP_ITS ---
Subjective Subjective Follow-up on acute combined respiratory failure secondary to acute heart failure preserved EF: Patient was seen and examined. Objective Data Objective Data Vital Signs: Vital Signs Temp Pulse Resp BP Pulse Ox O2 Del Method O2 Flow Rate 97.6 F L 88 18 120/65 96 Nasal Cannula 6 01/26/22 09:00 01/26/22 09:01 01/26/22 09:00 01/26/22 09:00 01/26/22 09:00 01/26/22 09:00 01/26/22 09:00 FiO2 95 01/26/22 08:11 Oxygen Flow Rate (L/min) 6 Oxygen Delivery Method Nasal Cannula Weight: 141.7 kg Body Mass Index (BMI) 51.0 Intake & Output: Intake and Output for Last 24 Hours 01/24/22 01/25/22 01/26/22 23:59 23:59 23:59 Intake Total 125.93 / 126.93 1474.32 / 1474.32 150 / 150 Output Total 2115 / 2265 2305 / 2305 900 / 900 Balance -1989.07 / -2138.07 -830.68 / -830.68 -750 / -750 Lab / Micro Data Result Diagrams: 01/26/22 05:09 01/26/22 05:09 Labs: Laboratory Results - last 24 hr 01/26/22 05:09: WBC 13.0 H, RBC 3.84 L, Hgb 11.0 L, Hct 37.5 L, MCV 97.7 H, MCH 28.6, MCHC 29.3 L, RDW Std Deviation 51.0 H, RDW Coeff of Earle 14.2, Plt Count 259, MPV 9.9, Immature Gran % (Auto) 0.800, Neut % (Auto) 90.9 H, Lymph % (Auto) 5.4 L, [place] % (Auto) 2.8, Eos % (Auto) 0.0, Baso % (Auto) 0.1, Absolute Neuts (auto) 11.8 H, Absolute Lymphs (auto) 0.70 L, Nucleated RBC % 0 01/26/22 05:09: Sodium 140, Potassium 3.9, Chloride 89 L, Carbon Dioxide > 45.0 H*, Anion Gap TNP, BUN 44 H, Creatinine 0.77, Estim Creat Clear Calc 58.94, Est GFR (MDRD) Af Amer 128, Est GFR (MDRD) Non-Af 106, BUN/Creatinine Ratio 57.3 H, Glucose 173 H, Calcium 9.1, Magnesium 2.6 Micro: Microbiology 01/24/22 16:30 Mucosa - Nasopharyngeal Influenza Types A,B Direct FA (CHIP) - Final 01/24/22 11:40 Nasal Secretion SARS-CoV-2 Antigen (Rapid) - Final Rhythm Strip Rhythm Strip: Sinus Rhythm Rate: 78 Ectopy: None Physical Exam Narrative Physical exam: General: Alert, Oriented x3, cooperative HEENT: Atraumatic Oral: Moist Mucosa Neck: Supple Lungs: Clear to auscultation Cardiovascular: HS I+II, regular, no murmurs Abdomen: Bowel Sounds Present, Soft, Non Tender Extremities: No edema Skin: No rashes, No breakdown Neurological: Grossly intact Psych/Mental Status: Appropriate Assessment & Plan Assessment/Plan (1) Acute on chronic respiratory failure with hypoxia and hypercapnia: PLAN: Plan 1.? Acute on chronic combined hypoxic hypercarbic respiratory failure secondary to Acute CHF exacerbation/COPD exacerbation/YENI Patient is currently on 6 L of oxygen, alternating with BiPAP Continue breathing treatment, wean off oxygen 2.?Acute on chronic HFpEF, EF 55%, improving Continue on IV Lasix, CHF protocol 3.?Acute COPD exacerbation, improving, Continue on Azithromycin, breathing treatments 4.?Hypertension/paroxysmal atrial fibrillation, continue metoprolol 5. Chronic macrocytic anemia/BPH/GERD/morbid obesity Continue with Finasteride, Flomax, PPI 6. DVT PPx- Lovenox Sc Charges/Coding Visit Charges Inpatient E&M: 03037 Subs Hosp L2
[2022-01-26] MEDS: Ferrous Sulfate 325 MG Tablet PO (11:24)
[2022-01-26] MEDS: Pantoprazole Sodium 40 MG Tablet PO (21:03)
[2022-01-26] MEDS: MELATONIN 3 MG TABLET PO (21:03)
[2022-01-27] VITALS (19 sets, daily range): BP systolic 99–139; BP diastolic 50–90; PULSE 62–91; RESP 18–22; TEMP 36.1–36.9; O2SAT 79–100
[2022-01-27 05:58] LABS: Absolute Lymphocyte Count 0.99 X10^3/uL (0.83-4.51); Absolute Neutrophil Count 9.7 X10^3/uL (2.0-7.7); Basophil# 0.01 X10^3/uL; Basophil% 0.1 % (0-1); Hematocrit 38.4 % (40-54); Hemoglobin 11.1 g/dL (13.0-16.5); Lymphocyte # 0.99 X10^3/ul (0.83-4.51); Lymphocyte % 8.4 % (19-41); Mean Corp Hgb Conc 28.9 g/dL (32-36); Mean Corpuscular Hgb 28.7 pg (27.0-32.0); Mean Corpuscular Volume 99.2 fL (80-94); Mean Platelet Vol. 10.2 fl (6.2-12.0); Monocyte# 1.02 X10^3/uL; Monocyte% 8.7 % (0-10); NRBC Flagged by Analyzer 0 % (0-5); Neutrophil # 9.67 X10^3/uL (2.7-7.7); Neutrophil % 82.3 % (47-70); Platelet Count 271 K/mm3 (150-450); RBC Distribution Width SD 51.5 fl (35.1-43.9); Red Blood Count 3.87 M/mm3 (4.6-6.2); White Blood Count 11.8 K/mm3 (4.4-11.0)
[2022-01-27 06:57] LABS: BUN 45 mg/dL (7-18); BUN/Creat Ratio 62.6 RATIO (10-20); Calcium,Total 8.7 mg/dL (8.5-10.1); Carbon Dioxide > 45.0 mmol/L (21.0-32.0); Chloride 87 mmol/L (98-107); Creatinine, Serum 0.72 mg/dL (0.70-1.30); EST Glomerular Filtration Rate 115 mL/min (>60); Est Glom Filt Rate - Afr Amer 139 mL/min (>60); Estimated Creatinine Clearance 58.94 ml/min; Glucose 150 mg/dL (74-106); Magnesium 2.5 mg/dL (1.6-2.6); Potassium 3.5 mmol/L (3.5-5.1); Sodium Level 142 mmol/L (136-145)
[2022-01-27] MEDS: Furosemide 40 MG/4 ML Vial IV (07:04)
[2022-01-27] MEDS: 0.9% Saline Lock 10 ML Syringe IV ×2 (07:04→17:09)
[2022-01-27] MEDS: Ipratropium/Albuterol Sulfate 3 ML AMPUL.NEB INHALATION ×5 (07:09→22:46)
--- NOTE | 2022-01-27 08:15 | PCM.PN.INT ---
Assessment & Plan Assessment/Plan (1) Acute on chronic respiratory failure with hypoxia and hypercapnia: PLAN: Plan RECOMMENDATIONS: 1. Change BiPAP to as needed and with sleep 2. Continue Lasix at every 8 hours for now 3. Continue scheduled bronchodilators. Transition to prednisone to complete 5 days 4. Encourage incentive spirometer use and mobilize patient as tolerated. 5. Continue appropriate DVT prophylaxis. 6. Obtain walking oximetry IMPRESSIONS: 1. Acute on chronic combined respiratory failure The patient has known end-stage COPD and chronic hypoxemic respiratory failure, with what appears to be a baseline oxygen requirement of 5 to 6 L/min. The patient is already on maximum triple therapy inhaler regimen at his baseline. He has been compliant, per report, with the aforementioned medications. His symptoms, radiographic findings and response to Lasix suggest the possible implication of heart failure with preserved ejection fraction. Patient with significant improvement following diuresis. Low clinical suspicion for COPD exacerbation. Patient will be transition to prednisone to complete a 5-day burst. Okay to continue with azithromycin given productive cough. Anticipate patient will require continued diuresis. Potential discharge once patient can ambulate on 6 L or less. 2. Obstructive sleep apnea The patient regularly utilizes nocturnal AutoPap therapy, for which he has been apparently compliant with its use according to his last pulmonary office visit note. 3. Morbid obesity/anemia/BPH/GERD/paroxysmal atrial fibrillation Complicates care, management, recovery and prognosis. Continue home medications as indicated. This note was generated with [employer] dictation software. It may contain incorrect words, spelling, and punctuation that were not noted in checking the note before signing. Subjective Subjective Patient did well overnight. No acute issues were reported. Patient overall feels subjectively improved compared to yesterday. Patient continues to report improvement in lower extremity edema. Oxygen requirements have improved somewhat. Patient is not reporting any significant coughing. Objective Data Objective Data Vital Signs: Vital Signs Temp Pulse Resp BP Pulse Ox O2 Del Method O2 Flow Rate 36.1 C L 62 20 H 112/70 92 High Flow 7 01/27/22 05:49 01/27/22 07:09 01/27/22 07:09 01/27/22 07:01 01/27/22 07:09 01/27/22 07:09 01/27/22 07:09 FiO2 95 01/26/22 08:11 Oxygen Flow Rate (L/min) 7 Oxygen Delivery Method High Flow Weight: 139.9 kg Body Mass Index (BMI) 51.0 Intake & Output: Intake and Output for Last 24 Hours 01/25/22 01/26/22 01/27/22 23:59 23:59 23:59 Intake Total 1474.32 / 1474.32 860 / 1100 240 / 240 Output Total 2305 / 2305 1350 / 1900 1200 / 1200 Balance -830.68 / -830.68 -490 / -800 -960 / -960 Lab / Micro Data Attestation: I reviewed the patient's lab results. Result Diagrams: 01/27/22 04:25 01/27/22 04:25 Labs: Laboratory Results - last 24 hr 01/27/22 04:25: WBC 11.8 H, RBC 3.87 L, Hgb 11.1 L, Hct 38.4 L, MCV 99.2 H, MCH 28.7, MCHC 28.9 L, RDW Std Deviation 51.5 H, RDW Coeff of Earle 14.0, Plt Count 271, MPV 10.2, Immature Gran % (Auto) 0.500, Neut % (Auto) 82.3 H, Lymph % (Auto) 8.4 L, [place] % (Auto) 8.7, Eos % (Auto) 0.0, Baso % (Auto) 0.1, Absolute Neuts (auto) 9.7 H, Absolute Lymphs (auto) 0.99, Nucleated RBC % 0 01/27/22 04:25: Sodium 142, Potassium 3.5, Chloride 87 L, Carbon Dioxide > 45.0 H*, Anion Gap TNP, BUN 45 H, Creatinine 0.72, Estim Creat Clear Calc 58.94, Est GFR (MDRD) Af Amer 139, Est GFR (MDRD) Non-Af 115, BUN/Creatinine Ratio 62.6 H, Glucose 150 H, Calcium 8.7, Magnesium 2.5 Micro: Microbiology 01/24/22 16:30 Mucosa - Nasopharyngeal Influenza Types A,B Direct FA (CHIP) - Final 01/24/22 11:40 Nasal Secretion SARS-CoV-2 Antigen (Rapid) - Final Radiography Diagnostic Testing: Radiology Impression Echocardiogram 01/26/22 05:55 Interpretation Summary The study was technically difficult. Contrast injection was performed. Based upon the 2D echocardiographic and contrast enhanced images obtained there appears to be grossly normal left ventricular size, wall motion, and systolic function. The estimated ejection fraction is 65 %. Moderate concentric left ventricular hypertrophy. Based upon the 2D echocardiographic images obtained the right ventricle appears to be mildly dilated with grossly normal right ventricular systolic function. The left atrium is mildly enlarged. Trivial mitral valve insufficiency. Trivial tricuspid valve insufficiency. Mild focal aortic valve calcification. Right ventricular systolic pressure estimated to be 41 mmHg. No evidence for diastolic dysfunction. Ordering Physician: Galindo Thomas Referring Physician: Juvenal Trivedi Performed By: Lisa Delgado, RACHEL, RVT Rhythm Strip Rhythm Strip: Sinus Rhythm Rate: 65 Ectopy: None Physical Exam Const alert and no apparent distress Constitutional Narrative: Mild conversational dyspnea on nasal cannula General Appearance: cooperative and on BiPAP Nutritional Appearance: morbidly obese HEENT normocephalic and head/scalp atraumatic Eyes PERRL and EOMs intact bilaterally Neck supple General: trachea midline Chest inspection of chest normal Resp Resp Narrative: Globally diminished air movement throughout all lung mcclure without appreciable wheezes, rales or rhonchi. Cardio regular rate, regular rhythm, S1 normal heart sound, S2 normal heart sound, no murmurs, no rub and no gallops GI soft to palpation and non-tender Inspection: abdominal distention Extremity General Extremity: edema bilateral (2+) lower extremity; Negative for clubbing Skin no rashes or lesions noted General Skin Exam: venous stasis Neuro CN's II-XII intact bilaterally, moves all extremities and no focal motor deficits Psych cooperative and affect normal Charges/Coding Visit Charges Inpatient E&M: 07138 Subs Hosp L2
[2022-01-27] MEDS: predniSONE 20 MG Tablet 40 MG PO (08:46)
[2022-01-27] MEDS: Aspirin E.C. 81 MG Tablet PO (08:46)
[2022-01-27] MEDS: Tamsulosin HCl 0.4 MG Capsule 0.8 MG PO (08:47)
[2022-01-27] MEDS: Ascorbic Acid 500 MG Tablet 1000 MG PO (08:47)
--- NOTE | 2022-01-27 10:45 | CASEMGMT ---
KALYANI PAYNE Face to Face with patient for initial transition planning/care coordination assessment. KALYANI PAYNE introduced self and role at [facility]. Patient sitting in chair, alert and oriented, at bedside. Patient willing to participate in assessment and is able to answer all questions appropriately. Care providers, pharmacy, and demographics verified. Patient wishes to discharge home, denies need for home health at this time. Patient states he has no further needs or concerns at this time. CM to follow for discharge planning needs that may arise. PCP: Farooq Specialists: Pablo, cotton wringer; [employer] fire aide Preferred Pharmacy: [facility] Insurance: [employer] Prescription Benefit: yes Living Will/HPOA: yes, Isela Powers LNOK: Living Arrangements: Patient lives with in a single story home with 2 steps to enter. Patient is independent at home, assists with bathing and dressing. Transportation: self, DME/HHC: Patient states he has shower chair, raised toilet, cane, wlaker, grab bars, cpap, nebulizer, pulse ox, and home oxygen with portability through [facility]. KALYANI PAYNE called [facility] to verify oxygen order 5-6 lpm continuous Disposition Plan: Patient to discharge home with family support and follow-up plans in place. Alice LOUIE, RN, CM
[2022-01-27] MEDS: Azithromycin 250 MG Tablet 500 MG PO (11:16)
[2022-01-27] MEDS: Ferrous Sulfate 325 MG Tablet PO (11:16)
[2022-01-27] MEDS: Metoprolol Tartrate 25 MG Tablet PO ×2 (11:16→21:19)
[2022-01-27] MEDS: Finasteride 5 MG Tablet PO (11:21)
[2022-01-27] MEDS: guaiFENesin 1,200 MG Tablet 1200 MG PO ×2 (11:21→21:19)
[2022-01-27] MEDS: Potassium Chloride Oral Tablet 20 MEQ 40 MEQ PO (11:21)
[2022-01-27] MEDS: Enoxaparin 40 MG/0.4 ML Syringe SC ×2 (11:40→21:19)
--- NOTE | 2022-01-27 13:03 | PCM.PN.CARD ---
Subjective Subjective The patient was evaluated earlier this day. He had already been up in his bedside chair. He states his breathing and his lower extremity edema were much improved compared to admission. Objective Data Vital Signs: Vital Signs Temp Pulse Resp BP Pulse Ox O2 Del Method O2 Flow Rate 97.7 F L 68 18 116/68 94 Nasal Cannula 6 01/27/22 11:43 01/27/22 11:43 01/27/22 11:43 01/27/22 11:43 01/27/22 11:43 01/27/22 11:43 01/27/22 11:43 FiO2 95 01/26/22 08:11 Oxygen Flow Rate (L/min) [ 8 AMBULATING with Oxygen #3] Oxygen Flow Rate (L/min) [ 6 AMBULATING with Oxygen #2] Oxygen Flow Rate (L/min) [ 4 AMBULATING with Oxygen #1] Oxygen Flow Rate (L/min) [At 4 REST with Oxygen] Oxygen Flow Rate (L/min) 6 Oxygen Delivery Method Nasal Cannula Weight: 308 lb 6.827 oz Body Mass Index (BMI) 51.0 Intake & Output: Intake and Output for Last 24 Hours 01/25/22 01/26/22 01/27/22 23:59 23:59 23:59 Intake Total 1474.32 / 1474.32 860 / 1100 750 / 750 Output Total 2305 / 2305 1350 / 1900 1540 / 1540 Balance -830.68 / -830.68 -490 / -800 -790 / -790 Lab / Micro Data Result Diagrams: 01/27/22 04:25 01/27/22 04:25 Labs: Laboratory Results - last 24 hr 01/27/22 04:25: WBC 11.8 H, RBC 3.87 L, Hgb 11.1 L, Hct 38.4 L, MCV 99.2 H, MCH 28.7, MCHC 28.9 L, RDW Std Deviation 51.5 H, RDW Coeff of Earle 14.0, Plt Count 271, MPV 10.2, Immature Gran % (Auto) 0.500, Neut % (Auto) 82.3 H, Lymph % (Auto) 8.4 L, [place] % (Auto) 8.7, Eos % (Auto) 0.0, Baso % (Auto) 0.1, Absolute Neuts (auto) 9.7 H, Absolute Lymphs (auto) 0.99, Nucleated RBC % 0 01/27/22 04:25: Sodium 142, Potassium 3.5, Chloride 87 L, Carbon Dioxide > 45.0 H*, Anion Gap TNP, BUN 45 H, Creatinine 0.72, Estim Creat Clear Calc 58.94, Est GFR (MDRD) Af Amer 139, Est GFR (MDRD) Non-Af 115, BUN/Creatinine Ratio 62.6 H, Glucose 150 H, Calcium 8.7, Magnesium 2.5 Rhythm Strip Rhythm Strip: Sinus Rhythm Rate: 65 Ectopy: None Cardiology Labs/Tests 01/27/22 04:25: WBC 11.8 H, RBC 3.87 L, Hgb 11.1 L, Hct 38.4 L, MCV 99.2 H, MCH 28.7, MCHC 28.9 L, Plt Count 271, MPV 10.2, Immature Gran % (Auto) 0.500, Neut % (Auto) 82.3 H, Lymph % (Auto) 8.4 L, [place] % (Auto) 8.7, Eos % (Auto) 0.0, Baso % (Auto) 0.1, Absolute Neuts (auto) 9.7 H, Nucleated RBC % 0 01/27/22 04:25: Sodium 142, Potassium 3.5, Chloride 87 L, Carbon Dioxide > 45.0 H*, Anion Gap TNP, BUN 45 H, Creatinine 0.72, Est GFR (MDRD) Af Amer 139, Est GFR (MDRD) Non-Af 115, BUN/Creatinine Ratio 62.6 H, Glucose 150 H, Calcium 8.7, Magnesium 2.5 Rhythm: Sinus rhythm Radiography Diagnostic Testing: Radiology Impression Echocardiogram 01/26/22 05:55 Interpretation Summary The study was technically difficult. Contrast injection was performed. Based upon the 2D echocardiographic and contrast enhanced images obtained there appears to be grossly normal left ventricular size, wall motion, and systolic function. The estimated ejection fraction is 65 %. Moderate concentric left ventricular hypertrophy. Based upon the 2D echocardiographic images obtained the right ventricle appears to be mildly dilated with grossly normal right ventricular systolic function. The left atrium is mildly enlarged. Trivial mitral valve insufficiency. Trivial tricuspid valve insufficiency. Mild focal aortic valve calcification. Right ventricular systolic pressure estimated to be 41 mmHg. No evidence for diastolic dysfunction. Ordering Physician: Galindo Thomas Referring Physician: Juvenal Trivedi Performed By: Lisa Delgado, RACHEL, RVT Physical Exam Narrative This is a 72-year-old obese white male who appears to be somewhat lethargic at this time wearing a BiPAP mask. Const alert, oriented x3 and no apparent distress HEENT normocephalic, head/scalp atraumatic and hearing grossly normal bilaterally Eyes PERRL and EOMs intact bilaterally Neck full ROM and no JVD Carotids: normal carotid upstroke Resp Auscultation: diminished lung sounds bilateral lower Cardio regular rhythm, S1 normal heart sound and S2 normal heart sound Cardio Narrative: Diminished cardiac tones Rate: regular rate GI GI Narrative: Large abdomen: Positive bowel sounds Extremity General Extremity: edema bilateral lower extremity (Bilateral lower extremities: Currently in support stockings) Details: mild Psych mental status grossly normal Assessment & Plan Assessment/Plan (1) Diastolic CHF, chronic: PLAN: The patient presents with concerns of acute on chronic diastolic CHF or heart failure with preserved ejection fraction. This is been raised based upon the patient's symptoms as well as the patient demonstrating evidence of volume overload with respect to concerns of pulmonary edema and peripheral edema. Of note, the patient's BNP level, which is a high negative predictive value test, is reported as negative. This would raise concerns that the patient's symptoms and findings may be noncardiac in etiology. However, it is also known that a low BNP level can occur in obesity which the patient demonstrates. The patient has received IV diuretics. He appears to be improving with respect to his overall symptoms and physical examination findings. He will continue medical therapy. This will include altering his IV diuretics to oral diuretics. He has undergone evaluation with transthoracic echocardiogram as noted. (2) Atrial fibrillation: PLAN: The patient has a history of atrial fibrillation as noted. He appears to be in sinus rhythm at this time. He will continue to be monitored. If he has recurrence of atrial fibrillation he will need adjustment of rate limiting medications, antiarrhythmic therapy, as well as anticoagulant therapy. (3) Acute and chronic respiratory failure with hypercapnia: PLAN: The patient presented with acute on chronic respiratory failure with hypercapnia as noted. He is currently wearing BiPAP with intermittent interruption for oral intake. (4) Stage 4 very severe COPD by GOLD classification: PLAN: The patient has a history of significant COPD. He will continue evaluation care per internal medicine and pulmonology/critical care medicine. (5) Secondary pulmonary hypertension: PLAN: The patient has a history of secondary pulmonary hypertension. It is thought this is related to his underlying pulmonary disease process. Request has been made for transthoracic echocardiogram to be performed which may, depending upon the image quality in the information obtained, be able to provide an estimate of his right-sided/pulmonary pressures. Addt'l Comments The patient will continue medical therapy with adjustment as deemed appropriate. There are no plans for additional cardiovascular diagnostic studies at this time. The patient's case has been discussed and reviewed with the patient. This note was generated using a voice recognition system and there may be incorrect words, spelling or punctuation that were not noted when reviewing the office note prior to saving.
--- NOTE | 2022-01-27 13:31 | PN.HOSP_ITS ---
Subjective Subjective Follow-up on acute combined respiratory failure secondary to acute heart failure preserved EF: Patient was seen and examined. He denied any new complaints. He has been diuresing. Urine in his Cruz catheter is now yellow. He has been restarted on his anticoagulation. Objective Data Objective Data Vital Signs: Vital Signs Temp Pulse Resp BP Pulse Ox O2 Del Method O2 Flow Rate 97.7 F L 68 18 116/68 93 Nasal Cannula 4 01/27/22 11:43 01/27/22 11:43 01/27/22 11:43 01/27/22 11:43 01/27/22 12:17 01/27/22 11:43 01/27/22 12:17 FiO2 95 01/26/22 08:11 Oxygen Flow Rate (L/min) [ 8 AMBULATING with Oxygen #3] Oxygen Flow Rate (L/min) [ 6 AMBULATING with Oxygen #2] Oxygen Flow Rate (L/min) [ 4 AMBULATING with Oxygen #1] Oxygen Flow Rate (L/min) [At 4 REST with Oxygen] Oxygen Flow Rate (L/min) 4 Oxygen Delivery Method Nasal Cannula Weight: 139.9 kg Body Mass Index (BMI) 51.0 Intake & Output: Intake and Output for Last 24 Hours 01/25/22 01/26/22 01/27/22 23:59 23:59 23:59 Intake Total 1474.32 / 1474.32 860 / 1100 750 / 750 Output Total 2305 / 2305 1350 / 1900 1540 / 1540 Balance -830.68 / -830.68 -490 / -800 -790 / -790 Lab / Micro Data Result Diagrams: 01/27/22 04:25 01/27/22 04:25 Labs: Laboratory Results - last 24 hr 01/27/22 04:25: WBC 11.8 H, RBC 3.87 L, Hgb 11.1 L, Hct 38.4 L, MCV 99.2 H, MCH 28.7, MCHC 28.9 L, RDW Std Deviation 51.5 H, RDW Coeff of Earle 14.0, Plt Count 271, MPV 10.2, Immature Gran % (Auto) 0.500, Neut % (Auto) 82.3 H, Lymph % (Auto) 8.4 L, [place] % (Auto) 8.7, Eos % (Auto) 0.0, Baso % (Auto) 0.1, Absolute Neuts (auto) 9.7 H, Absolute Lymphs (auto) 0.99, Nucleated RBC % 0 01/27/22 04:25: Sodium 142, Potassium 3.5, Chloride 87 L, Carbon Dioxide > 45.0 H*, Anion Gap TNP, BUN 45 H, Creatinine 0.72, Estim Creat Clear Calc 58.94, Est GFR (MDRD) Af Amer 139, Est GFR (MDRD) Non-Af 115, BUN/Creatinine Ratio 62.6 H, Glucose 150 H, Calcium 8.7, Magnesium 2.5 Micro: Microbiology 01/24/22 16:30 Mucosa - Nasopharyngeal Influenza Types A,B Direct FA (CHIP) - Final 01/24/22 11:40 Nasal Secretion SARS-CoV-2 Antigen (Rapid) - Final Radiography Diagnostic Testing: Radiology Impression Echocardiogram 01/26/22 05:55 Interpretation Summary The study was technically difficult. Contrast injection was performed. Based upon the 2D echocardiographic and contrast enhanced images obtained there appears to be grossly normal left ventricular size, wall motion, and systolic function. The estimated ejection fraction is 65 %. Moderate concentric left ventricular hypertrophy. Based upon the 2D echocardiographic images obtained the right ventricle appears to be mildly dilated with grossly normal right ventricular systolic function. The left atrium is mildly enlarged. Trivial mitral valve insufficiency. Trivial tricuspid valve insufficiency. Mild focal aortic valve calcification. Right ventricular systolic pressure estimated to be 41 mmHg. No evidence for diastolic dysfunction. Ordering Physician: Galindo Thomas Referring Physician: Juvenal Trivedi Performed By: Lisa Delgado, RDDON, RVT Rhythm Strip Rhythm Strip: Sinus Rhythm Rate: 65 Ectopy: None Physical Exam Narrative Physical exam: General: Alert, Oriented x3, cooperative, on 6 L of oxygen HEENT: Atraumatic Oral: Moist Mucosa Neck: Supple Lungs: Diminished auscultations, crackles at the bases Cardiovascular: HS I+II, regular, no murmurs Abdomen: Bowel Sounds Present, Soft, Non Tender Extremities: Bilateral leg edema +1-2, in BESSIE hose Skin: No rashes, No breakdown Neurological: Grossly intact Psych/Mental Status: Appropriate Assessment & Plan Assessment/Plan (1) Acute on chronic respiratory failure with hypoxia and hypercapnia: PLAN: Plan 1.? Acute on chronic combined hypoxic hypercarbic respiratory failure secondary to Acute CHF exacerbation/COPD exacerbation/YENI Patient is on 6 L of oxygen, alternating with BiPAP Continue breathing treatment, wean off oxygen 2.?Acute on chronic HFpEF, EF 55%, improving Continue on IV Lasix, CHF protocol Cardiology and pulmonology following 3.?Acute COPD exacerbation, improving, Complete azithromycin, breathing treatments 4.? Metabolic alkalosis secondary to contraction alkalosis from #2 We will give a trial of Diamox to 50 mg x 1 Repeat BMP in a.m. 5. Hypertension/paroxysmal atrial fibrillation, continue metoprolol 6. Chronic macrocytic anemia/BPH/GERD/morbid obesity Continue with Finasteride, Flomax, PPI 7. DVT PPx- Lovenox Sc Charges/Coding Visit Charges Inpatient E&M: 57635 Subs Hosp L2
[2022-01-27] MEDS: AcetaZOLAMIDE 250 MG Tablet PO (15:22)
[2022-01-27] MEDS: Furosemide 100 MG/10 ML Vial 80 MG IV (17:08)
[2022-01-27] MEDS: Pantoprazole Sodium 40 MG Tablet PO (21:19)
[2022-01-27] MEDS: MELATONIN 3 MG TABLET PO (21:20)
[2022-01-28] VITALS (22 sets, daily range): BP systolic 107–129; BP diastolic 57–88; PULSE 61–82; RESP 16–26; TEMP 36.1–36.7; O2SAT 86–100
[2022-01-28 05:51] LABS: Absolute Lymphocyte Count 1.32 X10^3/uL (0.83-4.51); Absolute Neutrophil Count 8.9 X10^3/uL (2.0-7.7); Basophil# 0.02 X10^3/uL; Basophil% 0.2 % (0-1); Eosinophil# 0.04 X10^3/uL; Eosinophils% 0.4 % (0-5); Hematocrit 36.1 % (40-54); Hemoglobin 10.9 g/dL (13.0-16.5); Lymphocyte # 1.32 X10^3/ul (0.83-4.51); Lymphocyte % 11.6 % (19-41); Mean Corp Hgb Conc 30.2 g/dL (32-36); Mean Corpuscular Hgb 29.1 pg (27.0-32.0); Mean Corpuscular Volume 96.3 fL (80-94); Monocyte# 1.01 X10^3/uL; Monocyte% 8.9 % (0-10); NRBC Flagged by Analyzer 0 % (0-5); Neutrophil # 8.91 X10^3/uL (2.7-7.7); Neutrophil % 78.4 % (47-70); Platelet Count 265 K/mm3 (150-450); RBC Distribution Width CV 13.9 % (11.6-14.6); RBC Distribution Width SD 49.2 fl (35.1-43.9); Red Blood Count 3.75 M/mm3 (4.6-6.2); White Blood Count 11.4 K/mm3 (4.4-11.0)
[2022-01-28 06:43] LABS: ALB/GLOB Ratio 0.7 RATIO (0.9-2.4); AST(SGOT) 21 U/L (15-37); Alanine Aminotransfer ALT/SGPT 29 U/L (16-61); Albumin, Serum 2.7 g/dL (3.2-5.0); Alkaline Phosphatase 59 U/L (45-117); BUN 49 mg/dL (7-18); BUN/Creat Ratio 66.6 RATIO (10-20); Calcium,Total 8.5 mg/dL (8.5-10.1); Carbon Dioxide > 45.0 mmol/L (21.0-32.0); Chloride 89 mmol/L (98-107); Creatinine, Serum 0.74 mg/dL (0.70-1.30); EST Glomerular Filtration Rate 112 mL/min (>60); Est Glom Filt Rate - Afr Amer 135 mL/min (>60); Estimated Creatinine Clearance 58.94 ml/min; Glucose 115 mg/dL (74-106); Magnesium 2.6 mg/dL (1.6-2.6); Potassium 3.2 mmol/L (3.5-5.1); Protein, Total 6.7 g/dL (6.4-8.2); Sodium Level 140 mmol/L (136-145)
[2022-01-28] MEDS: Ipratropium/Albuterol Sulfate 3 ML AMPUL.NEB INHALATION ×4 (06:46→22:48)
[2022-01-28] MEDS: AcetaZOLAMIDE 250 MG Tablet PO (07:49)
[2022-01-28] MEDS: Aspirin E.C. 81 MG Tablet PO (07:49)
[2022-01-28] MEDS: Potassium Chloride Oral Tablet 20 MEQ 40 MEQ PO ×2 (07:49→10:55)
[2022-01-28] MEDS: guaiFENesin 1,200 MG Tablet 1200 MG PO ×2 (07:50→21:39)
[2022-01-28] MEDS: Ascorbic Acid 500 MG Tablet 1000 MG PO (07:50)
[2022-01-28] MEDS: predniSONE 20 MG Tablet 40 MG PO (07:50)
[2022-01-28] MEDS: Tamsulosin HCl 0.4 MG Capsule 0.8 MG PO (07:50)
[2022-01-28] MEDS: Azithromycin 250 MG Tablet 500 MG PO (07:50)
[2022-01-28] MEDS: Finasteride 5 MG Tablet PO (07:50)
[2022-01-28] MEDS: Enoxaparin 40 MG/0.4 ML Syringe SC ×2 (07:50→21:38)
[2022-01-28] MEDS: Metoprolol Tartrate 25 MG Tablet PO ×2 (07:51→21:39)
--- NOTE | 2022-01-28 08:15 | PN.CC_ITS ---
Assessment & Plan Assessment/Plan (1) Acute on chronic respiratory failure with hypoxia and hypercapnia: PLAN: Plan RECOMMENDATIONS: 1. Continue BiPAP to as needed and with sleep 2. Continue Lasix at every 8 hours. Dose Diamox 3. Continue scheduled bronchodilators. Transition to prednisone to complete 5 days 4. Encourage incentive spirometer use and mobilize patient as tolerated. 5. Continue appropriate DVT prophylaxis. 6. Obtain walking oximetry today. Okay to discharge if ambulates on 6 L or less IMPRESSIONS: 1. Acute on chronic combined respiratory failure The patient has known end-stage COPD and chronic hypoxemic respiratory failure, with what appears to be a baseline oxygen requirement of 5 to 6 L/min. The patient is already on maximum triple therapy inhaler regimen at his baseline. He has been compliant, per report, with the aforementioned medications. His symptoms, radiographic findings and response to Lasix suggest the possible implication of heart failure with preserved ejection fraction. Patient with significant improvement following diuresis. Low clinical suspicion for COPD exacerbation. Patient will be transition to prednisone to complete a 5-day burst. Okay to complete course of azithromycin given productive cough. Anticipate patient will require continued diuresis. Potential discharge once patient can ambulate on 6 L or less. 2. Obstructive sleep apnea The patient regularly utilizes nocturnal AutoPap therapy, for which he has been compliant with its use according to his last pulmonary office visit note. 3. Morbid obesity/anemia/BPH/GERD/paroxysmal atrial fibrillation Complicates care, management, recovery and prognosis. Continue home medications as indicated. This note was generated with [employer] dictation software. It may contain incorrect words, spelling, and punctuation that were not noted in checking the note before signing. Subjective Subjective Patient did well overnight. No acute issues were reported. Patient with good urine output and feels subjectively improved compared to previous. Patient has attempted ambulation around the room and is doing well. Objective Data Objective Data Vital Signs: Vital Signs Temp Pulse Resp BP Pulse Ox O2 Del Method O2 Flow Rate 36.6 C 70 20 H 112/68 96 Nasal Cannula 5 01/28/22 03:12 01/28/22 07:51 01/28/22 07:19 01/28/22 03:12 01/28/22 07:19 01/28/22 07:19 01/28/22 07:19 FiO2 95 01/26/22 08:11 Oxygen Flow Rate (L/min) [ 8 AMBULATING with Oxygen #3] Oxygen Flow Rate (L/min) [ 6 AMBULATING with Oxygen #2] Oxygen Flow Rate (L/min) [ 4 AMBULATING with Oxygen #1] Oxygen Flow Rate (L/min) [At 4 REST with Oxygen] Oxygen Flow Rate (L/min) 5 Oxygen Delivery Method Nasal Cannula Weight: 132.4 kg Body Mass Index (BMI) 51.0 Intake & Output: Intake and Output for Last 24 Hours 01/26/22 01/27/22 01/28/22 23:59 23:59 23:59 Intake Total 860 / 1100 1510 / 1510 480 / 480 Output Total 1350 / 1900 3840 / 3840 700 / 700 Balance -490 / -800 -2330 / -2330 -220 / -220 Lab / Micro Data Attestation: I reviewed the patient's lab results. Result Diagrams: 01/28/22 05:10 01/28/22 05:10 Labs: Laboratory Results - last 24 hr 01/28/22 05:10: Sodium 140, Potassium 3.2 L, Chloride 89 L, Carbon Dioxide > 45.0 H*, Anion Gap TNP, BUN 49 H, Creatinine 0.74, Estim Creat Clear Calc 58.94, Est GFR (MDRD) Af Amer 135, Est GFR (MDRD) Non-Af 112, BUN/Creatinine Ratio 66.6 H, Glucose 115 H, Calcium 8.5, Magnesium 2.6, Total Bilirubin 0.40, AST 21, ALT 29, Alkaline Phosphatase 59, Total Protein 6.7, Albumin 2.7 L, Globulin 4.0, Albumin/Globulin Ratio 0.7 L 01/28/22 05:10: WBC 11.4 H, RBC 3.75 L, Hgb 10.9 L, Hct 36.1 L, MCV 96.3 H, MCH 29.1, MCHC 30.2 L, RDW Std Deviation 49.2 H, RDW Coeff of Earle 13.9, Plt Count 265, MPV 10.0, Immature Gran % (Auto) 0.500, Neut % (Auto) 78.4 H, Lymph % (Auto) 11.6 L, [place] % (Auto) 8.9, Eos % (Auto) 0.4, Baso % (Auto) 0.2, Absolute Neuts (auto) 8.9 H, Absolute Lymphs (auto) 1.32, Nucleated RBC % 0 Micro: Microbiology 01/24/22 16:30 Mucosa - Nasopharyngeal Influenza Types A,B Direct FA (CHIP) - Final 01/24/22 11:40 Nasal Secretion SARS-CoV-2 Antigen (Rapid) - Final Rhythm Strip Rate: 64 Ectopy: None Physical Exam Const alert and no apparent distress Constitutional Narrative: No conversational dyspnea on nasal cannula General Appearance: cooperative Nutritional Appearance: morbidly obese HEENT normocephalic and head/scalp atraumatic Eyes PERRL and EOMs intact bilaterally Neck supple General: trachea midline Chest inspection of chest normal Resp Resp Narrative: Globally diminished air movement throughout all lung mcclure without appreciable wheezes, rales or rhonchi. Cardio regular rate, regular rhythm, S1 normal heart sound, S2 normal heart sound, no murmurs, no rub and no gallops GI soft to palpation and non-tender Inspection: abdominal distention Extremity General Extremity: edema bilateral (2+) lower extremity; Negative for clubbing Skin no rashes or lesions noted General Skin Exam: venous stasis Neuro CN's II-XII intact bilaterally, moves all extremities and no focal motor deficits Psych cooperative and affect normal Charges/Coding Visit Charges Inpatient E&M: 74173 Subs Hosp L2
[2022-01-28] MEDS: 0.9% Saline Lock 10 ML Syringe IV ×2 (09:39→17:26)
[2022-01-28] MEDS: Furosemide 100 MG/10 ML Vial 80 MG IV ×2 (09:39→17:26)
[2022-01-28] MEDS: Ferrous Sulfate 325 MG Tablet PO (10:56)
--- NOTE | 2022-01-28 11:17 | PN.HOSP_ITS ---
Subjective Subjective Follow-up on acute combined respiratory failure secondary to acute heart failure preserved EF: Patient was seen and examined. No new complaints. He denies any chest pain or dizziness or palpitations. He required more than 7 L of oxygen on exertion. Objective Data Objective Data Vital Signs: Vital Signs Temp Pulse Resp BP Pulse Ox O2 Del Method O2 Flow Rate 97.0 F L 67 20 H 108/57 L 97 High Flow 6 01/28/22 11:00 01/28/22 11:00 01/28/22 11:00 01/28/22 11:00 01/28/22 11:00 01/28/22 11:00 01/28/22 11:00 FiO2 95 01/26/22 08:11 Oxygen Flow Rate (L/min) [ 7 AMBULATING with Oxygen #3] Oxygen Flow Rate (L/min) [ 6 AMBULATING with Oxygen #2] Oxygen Flow Rate (L/min) [ 4 AMBULATING with Oxygen #1] Oxygen Flow Rate (L/min) [At 4 REST with Oxygen] Oxygen Flow Rate (L/min) 6 Oxygen Delivery Method High Flow Weight: 132.4 kg Body Mass Index (BMI) 51.0 Intake & Output: Intake and Output for Last 24 Hours 01/26/22 01/27/22 01/28/22 23:59 23:59 23:59 Intake Total 860 / 1100 1510 / 1510 830 / 830 Output Total 1350 / 1900 3840 / 3840 1200 / 1200 Balance -490 / -800 -2330 / -2330 -370 / -370 Lab / Micro Data Result Diagrams: 01/28/22 05:10 01/28/22 05:10 Labs: Laboratory Results - last 24 hr 01/28/22 05:10: Sodium 140, Potassium 3.2 L, Chloride 89 L, Carbon Dioxide > 45.0 H*, Anion Gap TNP, BUN 49 H, Creatinine 0.74, Estim Creat Clear Calc 58.94, Est GFR (MDRD) Af Amer 135, Est GFR (MDRD) Non-Af 112, BUN/Creatinine Ratio 66.6 H, Glucose 115 H, Calcium 8.5, Magnesium 2.6, Total Bilirubin 0.40, AST 21, ALT 29, Alkaline Phosphatase 59, Total Protein 6.7, Albumin 2.7 L, Globulin 4.0, Albumin/Globulin Ratio 0.7 L 01/28/22 05:10: WBC 11.4 H, RBC 3.75 L, Hgb 10.9 L, Hct 36.1 L, MCV 96.3 H, MCH 29.1, MCHC 30.2 L, RDW Std Deviation 49.2 H, RDW Coeff of Earle 13.9, Plt Count 265, MPV 10.0, Immature Gran % (Auto) 0.500, Neut % (Auto) 78.4 H, Lymph % (Auto) 11.6 L, [place] % (Auto) 8.9, Eos % (Auto) 0.4, Baso % (Auto) 0.2, Absolute Neuts (auto) 8.9 H, Absolute Lymphs (auto) 1.32, Nucleated RBC % 0 Micro: Microbiology 01/24/22 16:30 Mucosa - Nasopharyngeal Influenza Types A,B Direct FA (CHIP) - Final 01/24/22 11:40 Nasal Secretion SARS-CoV-2 Antigen (Rapid) - Final Rhythm Strip Rhythm Strip: Sinus Rhythm Rate: 64 Ectopy: None Physical Exam Narrative Physical exam: General: Alert, Oriented x3, cooperative, on 6L of oxygen HEENT: Atraumatic Oral: Moist Mucosa Neck: Supple Lungs: Clear to auscultation Cardiovascular: HS I+II, regular, no murmurs Abdomen: Bowel Sounds Present, Soft, Non Tender Extremities: No edema Skin: No rashes, No breakdown Neurological: Grossly intact Psych/Mental Status: Appropriate Assessment & Plan Assessment/Plan (1) Acute on chronic respiratory failure with hypoxia and hypercapnia: PLAN: Plan 1.?Acute on chronic combined respiratory failure secondary to Acute CHF exacerbation/COPD exacerbation/YENI Remains on 6 L of oxygen, alternating with BiPAP Oxygen status post with with ambulation; required more than 7 L of oxygen Continue breathing treatment, wean off oxygen 2.?Acute on chronic HFpEF, EF 55%, improving Continue on IV Lasix, CHF protocol 3.?Acute COPD exacerbation, improving, Completed azithromycin, breathing treatments, continue on prednisone 4.?Hypokalemia, replaced, recheck in a.m. 5. Metabolic alkalosis secondary to contraction alkalosis from #2 Received a dose of Diamox 250 mg x 1; repeated today Repeat BMP in a.m. 6. Hypertension/paroxysmal atrial fibrillation, continue metoprolol 7. Chronic macrocytic anemia/BPH/GERD/morbid obesity Continue with Finasteride, Flomax, PPI 8. DVT PPx- Lovenox Sc Charges/Coding Visit Charges Inpatient E&M: 96318 Subs Hosp L2
--- NOTE | 2022-01-28 15:25 | CASEMGMT ---
Social Work Consult: Discharge Planning/Resources Referral source: Dietary This social worker palliative care met with patient and patient family in room. Introduced self and social worker palliative care role. Patient agreeable to speak with this social worker palliative care and provided verbal approval for this social worker palliative care to speak openly with patient family present. Multiple questions about Health Care Power of Shank Stitcher, Home Health, Community Resources ([facility]) and a Hospital Bed. This social worker palliative care able to answer questions about Health Care Power of Shank Stitcher and provided family with document. This social worker palliative care communicating that social work is able to assist with complete health care power of rivet sorter if patient would like to complete this during hospital stay. Patient/patient family to reach out to social worker palliative care if wanting to complete Health Care Power of Shank Stitcher. This social worker palliative care able to answer questions about home health services and [facility]. Family/patient request for referral to be sent to [facility]. Family also inquired about hospital bed. This social worker palliative care will follow up with physician on hospital bed options. Active support and listening provided. Will continue to follow to make referrals as appropriate and requested. PLAN: Home with spouse and home health services. Drew TORRES, LUCHO
[2022-01-28 16:30] LABS: Phosphorus 3.8 mg/dL (2.5-4.9)
--- NOTE | 2022-01-28 16:35 | CASEMGMT ---
Pt's family requesting RN CM and interested in HHC. Pt/family provided with list of HHC providers including quality and resource use data and consistent with the pt's preferred geographic region, medical needs and insurance network. Family is also interested in palliative referral for pt. CM to follow. SStdeneen AUGUSTE CM
--- NOTE | 2022-01-28 20:48 | PCM.PN.CARD ---
Subjective Subjective The patient has been up in the chair. He appears to be breathing more comfortably. He is not complaining of any acute respiratory related issues at this time. Objective Data Vital Signs: Vital Signs Temp Pulse Resp BP Pulse Ox O2 Del Method O2 Flow Rate 98.0 F 76 26 H 124/88 H 97 Nasal Cannula 4.5 01/28/22 17:25 01/28/22 19:19 01/28/22 19:12 01/28/22 17:25 01/28/22 19:12 01/28/22 20:01 01/28/22 20:01 FiO2 95 01/26/22 08:11 Oxygen Flow Rate (L/min) [ 7 AMBULATING with Oxygen #3] Oxygen Flow Rate (L/min) [ 6 AMBULATING with Oxygen #2] Oxygen Flow Rate (L/min) [ 4 AMBULATING with Oxygen #1] Oxygen Flow Rate (L/min) [At 4 REST with Oxygen] Oxygen Flow Rate (L/min) 4.5 Oxygen Delivery Method Nasal Cannula Weight: 291 lb 14.272 oz Body Mass Index (BMI) 51.0 Intake & Output: Intake and Output for Last 24 Hours 01/26/22 01/27/22 01/28/22 23:59 23:59 23:59 Intake Total 860 / 1100 1510 / 1510 1380 / 1380 Output Total 1350 / 1900 3840 / 3840 2200 / 2200 Balance -490 / -800 -2330 / -2330 -820 / -820 Lab / Micro Data Result Diagrams: 01/28/22 05:10 01/28/22 05:10 Labs: Laboratory Results - last 24 hr 01/28/22 05:10: Sodium 140, Potassium 3.2 L, Chloride 89 L, Carbon Dioxide > 45.0 H*, Anion Gap TNP, BUN 49 H, Creatinine 0.74, Estim Creat Clear Calc 58.94, Est GFR (MDRD) Af Amer 135, Est GFR (MDRD) Non-Af 112, BUN/Creatinine Ratio 66.6 H, Glucose 115 H, Calcium 8.5, Magnesium 2.6, Total Bilirubin 0.40, AST 21, ALT 29, Alkaline Phosphatase 59, Total Protein 6.7, Albumin 2.7 L, Globulin 4.0, Albumin/Globulin Ratio 0.7 L 01/28/22 05:10: WBC 11.4 H, RBC 3.75 L, Hgb 10.9 L, Hct 36.1 L, MCV 96.3 H, MCH 29.1, MCHC 30.2 L, RDW Std Deviation 49.2 H, RDW Coeff of Earle 13.9, Plt Count 265, MPV 10.0, Immature Gran % (Auto) 0.500, Neut % (Auto) 78.4 H, Lymph % (Auto) 11.6 L, [place] % (Auto) 8.9, Eos % (Auto) 0.4, Baso % (Auto) 0.2, Absolute Neuts (auto) 8.9 H, Absolute Lymphs (auto) 1.32, Nucleated RBC % 0 01/28/22 05:10: Phosphorus 3.8, Magnesium Cancelled Rhythm Strip Rhythm Strip: Sinus Rhythm Rate: 64 Ectopy: None Cardiology Labs/Tests 01/28/22 05:10: Sodium 140, Potassium 3.2 L, Chloride 89 L, Carbon Dioxide > 45.0 H*, Anion Gap TNP, BUN 49 H, Creatinine 0.74, Est GFR (MDRD) Af Amer 135, Est GFR (MDRD) Non-Af 112, BUN/Creatinine Ratio 66.6 H, Glucose 115 H, Calcium 8.5, Magnesium 2.6, Total Bilirubin 0.40 01/28/22 05:10: WBC 11.4 H, RBC 3.75 L, Hgb 10.9 L, Hct 36.1 L, MCV 96.3 H, MCH 29.1, MCHC 30.2 L, Plt Count 265, MPV 10.0, Immature Gran % (Auto) 0.500, Neut % (Auto) 78.4 H, Lymph % (Auto) 11.6 L, [place] % (Auto) 8.9, Eos % (Auto) 0.4, Baso % (Auto) 0.2, Absolute Neuts (auto) 8.9 H, Nucleated RBC % 0 01/28/22 05:10: Phosphorus 3.8, Magnesium Cancelled Rhythm: Sinus rhythm Physical Exam Narrative This is a 72-year-old obese white male who appears to be somewhat lethargic at this time wearing a BiPAP mask. Const alert, oriented x3 and no apparent distress HEENT normocephalic, head/scalp atraumatic and hearing grossly normal bilaterally Eyes PERRL and EOMs intact bilaterally Neck full ROM and no JVD Carotids: normal carotid upstroke Resp Auscultation: diminished lung sounds bilateral (Improved compared to previous examination) lower Cardio regular rhythm, S1 normal heart sound and S2 normal heart sound Cardio Narrative: Diminished cardiac tones Rate: regular rate GI GI Narrative: Large abdomen: Positive bowel sounds Extremity General Extremity: edema bilateral lower extremity Details: mild Psych mental status grossly normal Assessment & Plan Assessment/Plan (1) Diastolic CHF, chronic: PLAN: The patient presents with concerns of acute on chronic diastolic CHF or heart failure with preserved ejection fraction. This is been raised based upon the patient's symptoms as well as the patient demonstrating evidence of volume overload with respect to concerns of pulmonary edema and peripheral edema. Of note, the patient's BNP level, which is a high negative predictive value test, is reported as negative. This would raise concerns that the patient's symptoms and findings may be noncardiac in etiology. However, it is also known that a low BNP level can occur in obesity which the patient demonstrates. The patient has received IV diuretics. He appears to be improving with respect to his overall symptoms and physical examination findings. He will continue medical therapy. This will include altering his IV diuretics to oral diuretics. He has undergone evaluation with transthoracic echocardiogram as noted. (2) Atrial fibrillation: PLAN: The patient has a history of atrial fibrillation as noted. He appears to be in sinus rhythm at this time. He will continue to be monitored. If he has recurrence of atrial fibrillation he will need adjustment of rate limiting medications, antiarrhythmic therapy, as well as anticoagulant therapy. (3) Acute and chronic respiratory failure with hypercapnia: PLAN: The patient presented with acute on chronic respiratory failure with hypercapnia as noted. He is currently wearing BiPAP with intermittent interruption for oral intake. (4) Stage 4 very severe COPD by GOLD classification: PLAN: The patient has a history of significant COPD. He will continue evaluation care per internal medicine and pulmonology/critical care medicine. (5) Secondary pulmonary hypertension: PLAN: The patient has a history of secondary pulmonary hypertension. It is thought this is related to his underlying pulmonary disease process. Request has been made for transthoracic echocardiogram to be performed which may, depending upon the image quality in the information obtained, be able to provide an estimate of his right-sided/pulmonary pressures. Addt'l Comments The patient will continue medical management. This will include diuretic therapy. His dose may need to be adjusted over time depending upon his volume status. This note was generated using a voice recognition system and there may be incorrect words, spelling or punctuation that were not noted when reviewing the office note prior to saving.
[2022-01-28] MEDS: MELATONIN 3 MG TABLET PO (21:39)
[2022-01-28] MEDS: Pantoprazole Sodium 40 MG Tablet PO (21:39)
[2022-01-29] VITALS (10 sets, daily range): BP systolic 110–118; BP diastolic 60–85; PULSE 59–90; RESP 16–20; TEMP 36.5–36.6; O2SAT 88–98
[2022-01-29 04:46] LABS: Absolute Lymphocyte Count 1.31 X10^3/uL (0.83-4.51); Absolute Neutrophil Count 9.4 X10^3/uL (2.0-7.7); Basophil# 0.02 X10^3/uL; Basophil% 0.2 % (0-1); Eosinophil# 0.06 X10^3/uL; Eosinophils% 0.5 % (0-5); Hematocrit 38.7 % (40-54); Hemoglobin 11.5 g/dL (13.0-16.5); Lymphocyte # 1.31 X10^3/ul (0.83-4.51); Lymphocyte % 11.2 % (19-41); Mean Corp Hgb Conc 29.7 g/dL (32-36); Mean Corpuscular Volume 97.7 fL (80-94); Monocyte% 6.8 % (0-10); NRBC Flagged by Analyzer 0 % (0-5); Neutrophil # 9.44 X10^3/uL (2.7-7.7); Neutrophil % 80.8 % (47-70); Platelet Count 250 K/mm3 (150-450); RBC Distribution Width CV 13.6 % (11.6-14.6); RBC Distribution Width SD 48.8 fl (35.1-43.9); Red Blood Count 3.96 M/mm3 (4.6-6.2); White Blood Count 11.7 K/mm3 (4.4-11.0)
[2022-01-29 05:22] LABS: ALB/GLOB Ratio 0.7 RATIO (0.9-2.4); AST(SGOT) 23 U/L (15-37); Alanine Aminotransfer ALT/SGPT 48 U/L (16-61); Albumin, Serum 2.9 g/dL (3.2-5.0); Alkaline Phosphatase 63 U/L (45-117); BUN 44 mg/dL (7-18); BUN/Creat Ratio 49.8 RATIO (10-20); Calcium,Total 8.9 mg/dL (8.5-10.1); Carbon Dioxide > 45.0 mmol/L (21.0-32.0); Chloride 93 mmol/L (98-107); Creatinine, Serum 0.88 mg/dL (0.70-1.30); EST Glomerular Filtration Rate 90 mL/min (>60); Est Glom Filt Rate - Afr Amer 109 mL/min (>60); Estimated Creatinine Clearance 66.97 ml/min; Globulin 4.2 g/dL (2.2-4.2); Glucose 113 mg/dL (74-106); Magnesium 2.5 mg/dL (1.6-2.6); Potassium 3.8 mmol/L (3.5-5.1); Protein, Total 7.1 g/dL (6.4-8.2); Sodium Level 142 mmol/L (136-145)
[2022-01-29] MEDS: Ipratropium/Albuterol Sulfate 3 ML AMPUL.NEB INHALATION ×2 (06:37→11:09)
--- NOTE | 2022-01-29 08:24 | PCM.PN.INT ---
Assessment & Plan Assessment/Plan (1) Acute on chronic respiratory failure with hypoxia and hypercapnia: PLAN: Plan RECOMMENDATIONS: 1. Continue BiPAP to as needed and with sleep 2. Continue Lasix at every 8 hours. Dose Diamox daily while admitted 3. Continue scheduled bronchodilators. Transition to prednisone to complete 5 days 4. Encourage incentive spirometer use and mobilize patient as tolerated. 5. Continue appropriate DVT prophylaxis. 6. Obtain walking oximetry daily until discharged. Okay to discharge if ambulates on 6 L or less IMPRESSIONS: 1. Acute on chronic combined respiratory failure The patient has known end-stage COPD and chronic hypoxemic respiratory failure, with what appears to be a baseline oxygen requirement of 5 to 6 L/min. The patient is already on maximum triple therapy inhaler regimen at his baseline. He has been compliant, per report, with the aforementioned medications. His symptoms, radiographic findings and response to Lasix suggest the possible implication of heart failure with preserved ejection fraction. Patient with significant improvement following diuresis. Low clinical suspicion for COPD exacerbation. Patient will be transition to prednisone to complete a 5-day burst. Lab work is not suggestive of complications from diuresis. Anticipate patient will require continued diuresis. Potential discharge once patient can ambulate on 6 L or less. 2. Obstructive sleep apnea The patient regularly utilizes nocturnal AutoPap therapy, for which he has been compliant with its use according to his last pulmonary office visit note. 3. Morbid obesity/anemia/BPH/GERD/paroxysmal atrial fibrillation Complicates care, management, recovery and prognosis. Continue home medications as indicated. This note was generated with [employer] dictation software. It may contain incorrect words, spelling, and punctuation that were not noted in checking the note before signing. Subjective Subjective Patient continues to improve. Patient feels that he is strong enough to go home at this time. Patient denies any chest pain, abdominal pain, nausea or vomiting. Objective Data Objective Data Vital Signs: Vital Signs Temp Pulse Resp BP Pulse Ox O2 Del Method O2 Flow Rate 36.5 C L 90 20 H 118/77 98 Nasal Cannula 6 01/29/22 03:36 01/29/22 07:00 01/29/22 06:37 01/29/22 03:36 01/29/22 06:37 01/29/22 06:37 01/29/22 06:37 FiO2 44 01/28/22 22:49 Oxygen Flow Rate (L/min) [ 7 AMBULATING with Oxygen #3] Oxygen Flow Rate (L/min) [ 6 AMBULATING with Oxygen #2] Oxygen Flow Rate (L/min) [ 4 AMBULATING with Oxygen #1] Oxygen Flow Rate (L/min) [At 4 REST with Oxygen] Oxygen Flow Rate (L/min) 6 Oxygen Delivery Method Nasal Cannula Weight: 129.4 kg Body Mass Index (BMI) 51.0 Intake & Output: Intake and Output for Last 24 Hours 01/27/22 01/28/22 01/29/22 23:59 23:59 23:59 Intake Total 1510 / 1510 1380 / 1500 360 / 360 Output Total 3840 / 3840 2200 / 3800 2049 / 0 Balance -2330 / -2330 -820 / -2300 -1690 / -1690 Lab / Micro Data Attestation: I reviewed the patient's lab results. Result Diagrams: 01/29/22 04:12 01/29/22 04:12 Labs: Laboratory Results - last 24 hr 01/28/22 05:10: Phosphorus 3.8, Magnesium Cancelled 01/29/22 04:12: WBC 11.7 H, RBC 3.96 L, Hgb 11.5 L, Hct 38.7 L, MCV 97.7 H, MCH 29.0, MCHC 29.7 L, RDW Std Deviation 48.8 H, RDW Coeff of Earle 13.6, Plt Count 250, MPV 10.0, Immature Gran % (Auto) 0.500, Neut % (Auto) 80.8 H, Lymph % (Auto) 11.2 L, [place] % (Auto) 6.8, Eos % (Auto) 0.5, Baso % (Auto) 0.2, Absolute Neuts (auto) 9.4 H, Absolute Lymphs (auto) 1.31, Nucleated RBC % 0 01/29/22 04:12: Sodium 142, Potassium 3.8, Chloride 93 L, Carbon Dioxide > 45.0 H*, Anion Gap TNP, BUN 44 H, Creatinine 0.88, Estim Creat Clear Calc 66.97, Est GFR (MDRD) Af Amer 109, Est GFR (MDRD) Non-Af 90, BUN/Creatinine Ratio 49.8 H, Glucose 113 H, Calcium 8.9, Magnesium 2.5, Total Bilirubin 0.50, AST 23, ALT 48, Alkaline Phosphatase 63, Total Protein 7.1, Albumin 2.9 L, Globulin 4.2, Albumin/Globulin Ratio 0.7 L Micro: Microbiology 01/24/22 16:30 Mucosa - Nasopharyngeal Influenza Types A,B Direct FA (CHIP) - Final 01/24/22 11:40 Nasal Secretion SARS-CoV-2 Antigen (Rapid) - Final Rhythm Strip Rhythm Strip: Sinus Rhythm Rate: 64 Ectopy: None Physical Exam Const alert and no apparent distress Constitutional Narrative: No conversational dyspnea on nasal cannula General Appearance: cooperative Nutritional Appearance: morbidly obese HEENT normocephalic and head/scalp atraumatic Eyes PERRL and EOMs intact bilaterally Neck supple General: trachea midline Chest inspection of chest normal Resp Resp Narrative: Globally diminished air movement throughout all lung mcclure without appreciable wheezes, rales or rhonchi. Cardio regular rate, regular rhythm, S1 normal heart sound, S2 normal heart sound, no murmurs, no rub and no gallops GI soft to palpation and non-tender Inspection: abdominal distention Extremity General Extremity: edema bilateral (2+) lower extremity; Negative for clubbing Skin no rashes or lesions noted General Skin Exam: venous stasis Neuro CN's II-XII intact bilaterally, moves all extremities and no focal motor deficits Psych cooperative and affect normal Charges/Coding Visit Charges Inpatient E&M: 85105 Subs Hosp L2
--- NOTE | 2022-01-29 08:41 | PCM.PN.CARD ---
Subjective Subjective The patient states he slept well last night. He has been up since approximately 5 AM. He has been in the chair. He believes overall his breathing is much improved compared to admission to the hospital. Objective Data Vital Signs: Vital Signs Temp Pulse Resp BP Pulse Ox O2 Del Method O2 Flow Rate 97.7 F L 90 20 H 118/77 98 Nasal Cannula 6 01/29/22 03:36 01/29/22 07:00 01/29/22 06:37 01/29/22 03:36 01/29/22 06:37 01/29/22 06:37 01/29/22 06:37 FiO2 44 01/28/22 22:49 Oxygen Flow Rate (L/min) [ 7 AMBULATING with Oxygen #3] Oxygen Flow Rate (L/min) [ 6 AMBULATING with Oxygen #2] Oxygen Flow Rate (L/min) [ 4 AMBULATING with Oxygen #1] Oxygen Flow Rate (L/min) [At 4 REST with Oxygen] Oxygen Flow Rate (L/min) 6 Oxygen Delivery Method Nasal Cannula Weight: 285 lb 4.45 oz Body Mass Index (BMI) 51.0 Intake & Output: Intake and Output for Last 24 Hours 01/27/22 01/28/22 01/29/22 23:59 23:59 23:59 Intake Total 1510 / 1510 1380 / 1500 360 / 360 Output Total 3840 / 3840 2200 / 3800 2049 / 2049 Balance -2330 / -2330 -820 / -2300 -1690 / -1690 Lab / Micro Data Result Diagrams: 01/29/22 04:12 01/29/22 04:12 Labs: Laboratory Results - last 24 hr 01/28/22 05:10: Phosphorus 3.8, Magnesium Cancelled 01/29/22 04:12: WBC 11.7 H, RBC 3.96 L, Hgb 11.5 L, Hct 38.7 L, MCV 97.7 H, MCH 29.0, MCHC 29.7 L, RDW Std Deviation 48.8 H, RDW Coeff of Earle 13.6, Plt Count 250, MPV 10.0, Immature Gran % (Auto) 0.500, Neut % (Auto) 80.8 H, Lymph % (Auto) 11.2 L, [place] % (Auto) 6.8, Eos % (Auto) 0.5, Baso % (Auto) 0.2, Absolute Neuts (auto) 9.4 H, Absolute Lymphs (auto) 1.31, Nucleated RBC % 0 01/29/22 04:12: Sodium 142, Potassium 3.8, Chloride 93 L, Carbon Dioxide > 45.0 H*, Anion Gap TNP, BUN 44 H, Creatinine 0.88, Estim Creat Clear Calc 66.97, Est GFR (MDRD) Af Amer 109, Est GFR (MDRD) Non-Af 90, BUN/Creatinine Ratio 49.8 H, Glucose 113 H, Calcium 8.9, Magnesium 2.5, Total Bilirubin 0.50, AST 23, ALT 48, Alkaline Phosphatase 63, Total Protein 7.1, Albumin 2.9 L, Globulin 4.2, Albumin/Globulin Ratio 0.7 L Rhythm Strip Rhythm Strip: Sinus Rhythm Rate: 64 Ectopy: None Cardiology Labs/Tests 01/28/22 05:10: Phosphorus 3.8, Magnesium Cancelled 01/29/22 04:12: WBC 11.7 H, RBC 3.96 L, Hgb 11.5 L, Hct 38.7 L, MCV 97.7 H, MCH 29.0, MCHC 29.7 L, Plt Count 250, MPV 10.0, Immature Gran % (Auto) 0.500, Neut % (Auto) 80.8 H, Lymph % (Auto) 11.2 L, [place] % (Auto) 6.8, Eos % (Auto) 0.5, Baso % (Auto) 0.2, Absolute Neuts (auto) 9.4 H, Nucleated RBC % 0 01/29/22 04:12: Sodium 142, Potassium 3.8, Chloride 93 L, Carbon Dioxide > 45.0 H*, Anion Gap TNP, BUN 44 H, Creatinine 0.88, Est GFR (MDRD) Af Amer 109, Est GFR (MDRD) Non-Af 90, BUN/Creatinine Ratio 49.8 H, Glucose 113 H, Calcium 8.9, Magnesium 2.5, Total Bilirubin 0.50 Rhythm: Sinus rhythm Physical Exam Narrative This is a 72-year-old obese white male who appears to be somewhat lethargic at this time wearing a BiPAP mask. Const alert, oriented x3 and no apparent distress HEENT normocephalic, head/scalp atraumatic and hearing grossly normal bilaterally Eyes PERRL and EOMs intact bilaterally Neck full ROM and no JVD Carotids: normal carotid upstroke Resp Auscultation: wheezes scattered wheezes (Faint) and diminished lung sounds bilateral (Improved compared to previous examination) lower Cardio regular rhythm, S1 normal heart sound and S2 normal heart sound Cardio Narrative: Diminished cardiac tones Rate: regular rate GI GI Narrative: Large abdomen: Positive bowel sounds Extremity General Extremity: edema bilateral lower extremity Details: mild Psych mental status grossly normal Assessment & Plan Assessment/Plan (1) Diastolic CHF, chronic: PLAN: The patient presents with concerns of acute on chronic diastolic CHF or heart failure with preserved ejection fraction. This is been raised based upon the patient's symptoms as well as the patient demonstrating evidence of volume overload with respect to concerns of pulmonary edema and peripheral edema. Of note, the patient's BNP level, which is a high negative predictive value test, is reported as negative. This would raise concerns that the patient's symptoms and findings may be noncardiac in etiology. However, it is also known that a low BNP level can occur in obesity which the patient demonstrates. The patient has received IV diuretics. He appears to be improving with respect to his overall symptoms and physical examination findings. He will continue medical therapy. His IV diuretics has been altered to oral diuretics with a dose higher than his reported home dose. He has undergone evaluation with transthoracic echocardiogram as noted. (2) Atrial fibrillation: PLAN: The patient has a history of atrial fibrillation as noted. He appears to be in sinus rhythm at this time. He will continue to be monitored. If he has recurrence of atrial fibrillation he will need adjustment of rate limiting medications, antiarrhythmic therapy, as well as anticoagulant therapy. (3) Acute and chronic respiratory failure with hypercapnia: PLAN: The patient presented with acute on chronic respiratory failure with hypercapnia as noted. He is currently wearing BiPAP with intermittent interruption for oral intake. (4) Stage 4 very severe COPD by GOLD classification: PLAN: The patient has a history of significant COPD. He will continue evaluation care per internal medicine and pulmonology/critical care medicine. (5) Secondary pulmonary hypertension: PLAN: The patient has a history of secondary pulmonary hypertension. It is thought this is related to his underlying pulmonary disease process. Request has been made for transthoracic echocardiogram to be performed which may, depending upon the image quality in the information obtained, be able to provide an estimate of his right-sided/pulmonary pressures. Addt'l Comments Overall, he does appear to be improved based upon symptoms and examination. He will continue combined medical therapy with a higher dose of diuretic compared to his previous home dose. If at home he starts noticing worsening shortness of breath, increased edema, or increased weight-all of which may represent retaining fluid-then he may need to increase his diuretic dose and/or combine it with other diuretics to try and bring his volume status under better control and attempt to minimize repeat hospitalizations. The above has been discussed and reviewed with him. This note was generated using a voice recognition system and there may be incorrect words, spelling or punctuation that were not noted when reviewing the office note prior to saving.
[2022-01-29] MEDS: Ascorbic Acid 500 MG Tablet 1000 MG PO (09:09)
[2022-01-29] MEDS: Potassium Chloride Oral Tablet 20 MEQ 40 MEQ PO (09:09)
[2022-01-29] MEDS: AcetaZOLAMIDE 250 MG Tablet PO (09:10)
[2022-01-29] MEDS: predniSONE 20 MG Tablet 40 MG PO (09:10)
[2022-01-29] MEDS: Tamsulosin HCl 0.4 MG Capsule 0.8 MG PO (09:10)
[2022-01-29] MEDS: guaiFENesin 1,200 MG Tablet 1200 MG PO (09:11)
[2022-01-29] MEDS: Furosemide 40 MG Tablet PO (09:11)
[2022-01-29] MEDS: Finasteride 5 MG Tablet PO (09:11)
[2022-01-29] MEDS: Metoprolol Tartrate 25 MG Tablet PO (09:11)
--- NOTE | 2022-01-29 09:43 | CASEMGMT ---
Dr. Estrada agreeable to palliative referral and order placed. Referral e-mailed to [facility] per physician/family request. Carmella AUGUSTE CM
--- NOTE | 2022-01-29 10:36 | CASEMGMT ---
Addendum entered by Alice Herrera 01/29/22 11:49: Per palliative, pt/ did not want to sign up for palliative at this time. Dr. Estrada aware. Per Laurie AUGUSTE, pt does not qualify for increased home oxygen as he is on 5-6L at home. Per Tammi at [facility], they can accept pt for SN, PT/OT and do SOC 01/30/22. Pt/ updated, voices understanding. Pt/ voice no further questions/concerns/needs. Carmella AUGUSTE CM Original Note: provided pt's AD's to [facility] at this time and copies made and placed on chart. states they would like [facility] and referral to Tammi at [facility], voices understanding. CM to follow. Carmella AUGUSTE CM
[2022-01-29] MEDS: Ferrous Sulfate 325 MG Tablet PO (12:24)
--- NOTE | 2022-01-29 13:15 | PCM.DC.SUM ---
Providers Date of Admission: 01/24/22 Date of Discharge: 01/29/22 Primary Care Physician: Dr. Juvenal Trivedi MD Consultations 01/24/22 15:30 Consult: Jd Edwards Developer / Pulmonary Medicine Routine Consulting Provider: Pulmonary Medicine renetta [place] Reason for Consult: Acute on chronic combined respiratory failure on BiPAP EMERGENT Consult: No MD Notified: Yes Date Notified: 01/24/22 Time Notified: 15:30 Method of Notification: Text Reason For Visit: CHF, COPD EXA Diagnosis Discharge Diagnosis (1) Diastolic CHF, chronic: Status: Chronic Code(s): I50.32 - Chronic diastolic (congestive) heart failure (2) Atrial fibrillation: Status: Acute Code(s): I48.91 - Unspecified atrial fibrillation (3) Acute and chronic respiratory failure with hypercapnia: Status: Chronic Code(s): J96.22 - Acute and chronic respiratory failure with hypercapnia (4) Stage 4 very severe COPD by GOLD classification: Status: Chronic Code(s): J44.9 - Chronic obstructive pulmonary disease, unspecified (5) Secondary pulmonary hypertension: Status: Chronic Medications at Discharge Home Medications finasteride 5 mg tablet 5 mg PO DAILY prostate 05/05/20 ascorbic acid (vitamin C) 500 mg tablet 1,000 mg PO DAILY vitamin 07/04/20 calcium carb-Ca gluc 500 mg calcium-magnesium ox-Mg gluc 250 mg tablet (Calcium Magnesium) 1 tab PO DAILY supplement 07/04/20 tamsulosin 0.4 mg capsule 0.8 mg PO DAILY prostate 07/04/20 ferrous sulfate 325 mg (65 mg iron) tablet 325 mg PO DAILY supplement 10/09/20 aspirin 81 mg tablet,delayed release (Adult Low Dose Aspirin) 81 mg PO DAILY heart health 10/24/20 omeprazole 20 mg capsule,delayed release 20 mg PO QHS GERD 07/15/21 albuterol sulfate 90 mcg/actuation aerosol inhaler 2 puff inhalation Q6H PRN shortness of breath or wheezing #18 grams 08/08/21 tiotropium bromide 2.5 mcg/actuation mist for inhalation (Spiriva Respimat) 2 inh inhalation DAILY sob #3 ea 10/21/21 budesonide-formoterol HFA 160 mcg-4.5 mcg/actuation aerosol inhaler (Symbicort) 2 puff inhalation BID breathing 01/24/22 metoprolol tartrate 25 mg tablet 25 mg PO BID blood pressure 01/24/22 furosemide 40 mg tablet (Lasix) 40 mg PO BID 30 days #60 tabs 01/29/22 guaifenesin 1,200 mg tablet, extended release 12 hr (Mucus Relief ER) 1,200 mg PO BID 14 days #28 tabs 01/29/22 potassium chloride 20 mEq tablet,extended release(part/cryst) (Klor-Con M) 40 meq PO DAILYCM 7 days #14 tabs 01/29/22 Hospital Course Operations None Procedures 2-D Echocardiogram Summary of Care Provided Minutes Spent on Discharge: 40 Hospital Course: 72-year-old male with past medical history of chronic hypoxic respiratory failure on 4 to 6 L of oxygen, COPD who comes in with progressive shortness of breath ongoing for about 1 week. He was found to be saturating 78% in the emergency room. He was admitted to the progressive care unit with acute on chronic combined respiratory failure secondary to COPD exacerbation acute exacerbation of heart failure preserved EF. Patient was started on Solu-Medrol, IV Lasix, breathing treatment. He had a traumatic Cruz catheter insertion, had hematuria afterwards. His Lovenox and aspirin were held for a while. Patient was managed on BiPAP intermittently as nasal cannula oxygen. Cardiology and pulmonology were consulted. Patient completed a course of azithromycin and steroids during his hospital stay. Patient had hypokalemia during this hospital stay as well as metabolic alkalosis from diuretic therapy, he received potassium replacement and Diamox. He was seen to have improved urine remained under 6 L on ambulation. He was discharged home with strict CHF medication, Lasix 40 mg twice daily. He knows to weigh himself every day. He will follow-up with pulmonology and cardiology. Physical Exam Narrative Physical exam: General: Alert, Oriented x3, cooperative, on 6L of oxygen HEENT: Atraumatic Oral: Moist Mucosa Neck: Supple Lungs:Diminished to auscultation Cardiovascular: HS I+II, regular, no murmurs Abdomen: Bowel Sounds Present, Soft, Non Tender Extremities: No edema Skin: No rashes, No breakdown Neurological: Grossly intact Psych/Mental Status: Appropriate Weight / BMI Weight Weight: 129.4 kg Body Mass Index (BMI) 51.0 ABG / Lab / Microbiology Data Result Diagrams: 01/29/22 04:12 01/29/22 04:12 Laboratory: Laboratory Results - last 24 hr 01/28/22 05:10: Phosphorus 3.8, Magnesium Cancelled 01/29/22 04:12: WBC 11.7 H, RBC 3.96 L, Hgb 11.5 L, Hct 38.7 L, MCV 97.7 H, MCH 29.0, MCHC 29.7 L, RDW Std Deviation 48.8 H, RDW Coeff of Earle 13.6, Plt Count 250, MPV 10.0, Immature Gran % (Auto) 0.500, Neut % (Auto) 80.8 H, Lymph % (Auto) 11.2 L, [place] % (Auto) 6.8, Eos % (Auto) 0.5, Baso % (Auto) 0.2, Absolute Neuts (auto) 9.4 H, Absolute Lymphs (auto) 1.31, Nucleated RBC % 0 01/29/22 04:12: Sodium 142, Potassium 3.8, Chloride 93 L, Carbon Dioxide > 45.0 H*, Anion Gap TNP, BUN 44 H, Creatinine 0.88, Estim Creat Clear Calc 66.97, Est GFR (MDRD) Af Amer 109, Est GFR (MDRD) Non-Af 90, BUN/Creatinine Ratio 49.8 H, Glucose 113 H, Calcium 8.9, Magnesium 2.5, Total Bilirubin 0.50, AST 23, ALT 48, Alkaline Phosphatase 63, Total Protein 7.1, Albumin 2.9 L, Globulin 4.2, Albumin/Globulin Ratio 0.7 L Microbiology: Microbiology 01/24/22 16:30 Mucosa - Nasopharyngeal Influenza Types A,B Direct FA (CHIP) - Final 01/24/22 11:40 Nasal Secretion SARS-CoV-2 Antigen (Rapid) - Final D/C Instructions Discharge Diet: Low fat / Low cholesterol and 2000 mg Sodium Diet Meaningful Use Info Meaningful Use Diagnoses (Choose all that apply): CHF CHF MEG/ARB ordered at discharge?: No Reason MEG/ARB not ordered?: Not indicated Documented LVEF (%): 55 Discharge Plan Admission Admit Date/Time: 01/24/22 13:26 Primary Reason for Your Visit: Acute CHF Attending Provider: Janki Estrada Primary Care Provider: Juvenal Trivedi Consulting Providers: Yandel Shah ; Gee Jenkins ; Afua Friedman NP ; Galindo Thomas Instructions Additional Instructions / Restrictions: Continue to take all your medications as prescribed. Take note of changes to your medications. Continue on a low-fat low-salt diet. Restrict your total fluid intake to less than 1500 mils. Weigh yourself every day. Let your doctor know when you gain more than 4 pounds of weight. Follow-up with your primary care doctor in 1 to 2 weeks. Follow-up with the golf cart attendant and sort operations supervisor in 2 weeks. You would need repeat blood work to check on your kidney function within a week of discharge. Discharge Orders/Prescriptions Prescriptions: New Mucus Relief ER 1,200 mg Tablet Extended Release 12hr 1,200 mg PO BID 14 Days Qty: 28 0RF potassium chloride [Klor-Con M20] 20 mEq Tablet,Er Particles/Crystals 40 meq PO DAILYCM 7 Days Qty: 14 0RF furosemide [Lasix] 40 mg tablet 40 mg PO BID 30 Days Qty: 60 0RF Continued Calcium Magnesium 500 mg calcium -250 mg tablet 1 tab PO DAILY ascorbic acid (vitamin C) 500 mg tablet 1,000 mg PO DAILY aspirin [Adult Low Dose Aspirin] 81 mg tablet,delayed release (DR/EC) 81 mg PO DAILY tamsulosin 0.4 mg capsule 0.8 mg PO DAILY Label Comments: urination finasteride 5 MG tablet 5 mg PO DAILY ferrous sulfate 325 MG tablet 325 mg PO DAILY Label Comments: TAKE 1 TABLET BY MOUTH EVERY DAY omeprazole 20 mg capsule,delayed release(DR/EC) 20 mg PO QHS metoprolol tartrate 25 mg Tablet 25 mg PO BID budesonide-formoterol [Symbicort] 160-4.5 mcg/actuation Hfa Aerosol Inhaler 2 puff INHALATION BID albuterol sulfate 90 mcg/actuation HFA aerosol inhaler 2 puff INHALATION Q6H PRN (Reason: shortness of breath or wheezing) Qty: 18 3RF Spiriva Respimat 2.5 mcg/actuation mist 2 inh INHALATION DAILY Qty: 3 3RF Discontinued garlic Tablet 600 mg PO DAILY furosemide [Lasix] 40 mg tablet 40 mg PO DAILY Referrals / Follow Up: Yandel Shah MD [STAFF PHYSICIAN] - Within 2 Weeks Juvenal Trivedi MD [Primary Care Provider] - 02/10/22 4:40 pm Ibrahima Ross MD [STAFF PHYSICIAN] - Within 2 Weeks Disposition Disposition (needs filled in before D/C Order can be placed): Home Health Service Charges/Coding Visit Charges Inpatient E&M: 79100 Disch Hosp
== END 2022-01-29 14:44 | disposition home health service (06) | DRG 291 ==
LOC: ED 13:31 → ICU 13:39 → PCU 01-26 07:12
PROVIDERS: Admitting Provider Internal Medicine; Emergency Provider Student in an Organized Health Care Education/Training Program; PCP Internal Medicine; Visit Provider Internal Medicine
DX: I11.0 Hypertensive heart disease with heart failure (principal); J96.21 Acute and chronic respiratory failure with hypoxia; I50.33 Acute on chronic diastolic (congestive) heart failure; J96.22 Acute and chronic respiratory failure with hypercapnia; E87.3 Alkalosis; Z68.43 Body mass index [BMI] 50.0-59.9, adult; E66.2 Morbid (severe) obesity with alveolar hypoventilation; J44.1 Chronic obstructive pulmonary disease with (acute) exacerbation; I27.29 Other secondary pulmonary hypertension; E86.9 Volume depletion, unspecified; I48.0 Paroxysmal atrial fibrillation; D53.9 Nutritional anemia, unspecified; K21.9 Gastro-esophageal reflux disease without esophagitis; E87.6 Hypokalemia; R14.0 Abdominal distension (gaseous); R31.9 Hematuria, unspecified; N40.0 Benign prostatic hyperplasia without lower urinary tract symptoms; Z66 Do not resuscitate; Z99.81 Dependence on supplemental oxygen; Z79.82 Long term (current) use of aspirin; Z79.899 Other long term (current) drug therapy; Z87.891 Personal history of nicotine dependence
CPT/HCPCS: 36415; 36600; 71045; 74018; 80048; 80053; 80061; 82803; 83735; 83880; 84100; 84443; 84484; 85025; 87804; 87811; 93005; 93306; 94002; 94003; 94640; 94660; 94667; 94668; 94762; 97110; 97112; 97116; 97163; 97167; 97530; 97535; 97802; 99251; 99285; Q9957; A4216; C8929; G0463; J1940

== ENCOUNTER 2022-01-31 19:18 | Inpatient (IN) | payer MEDICARE, SELFPAY ==
[2022-01-31] VITALS (9 sets, daily range): BP systolic 118–139; BP diastolic 63–84; PULSE 74–86; RESP 12–30; TEMP 36.2–37.2; O2SAT 93–99; BMI 49.4; BMI 48.3
--- NOTE | 2022-01-31 19:39 | EKG12_ITS ---
Test Reason : Blood Pressure : / mmHG Vent. Rate : 077 BPM Atrial Rate : 077 BPM P-R Int : 178 ms QRS Dur : 088 ms QT Int : 354 ms P-R-T Axes : 081 051 041 degrees QTc Int : 400 ms Normal sinus rhythm Normal ECG Confirmed by LEESA MENDEZ, DESTINEE ([id number]), fan mail editor [address] ([id number]) on 02/03/2022 9:00:17 AM Referred By: Confirmed By:DESTINEE LANDERS MD
--- NOTE | 2022-01-31 19:40 | EX.ED.DYSGE1 ---
HPI History of Present Illness Chief Complaint: Shortness of Breath Informant: patient and family Narrative Narrative: 72-year-old male history of CHF and COPD was discharged from this hospital 2 days ago. When he got home he passed out outside of his car. Apparently his oxygen machine was not delivering him any oxygen. EMS was called and they transported him to the closest hospital which was [facility]. He was admitted there. Family states that all of his doctors are here and they were unhappy with his care there is they state that he was requiring BiPAP and getting routinely confused when he did not have it on. He states that they discontinued his Lasix and he began to swell up. They also state that they discontinued his steroids. The family wanted better continuity of care so they signed him out AMA and brought him to our hospital. Patient noted to be in the 70s on 6 L when he came into the emergency department. With a nonrebreather and rest the patient is maintaining his saturations on 5 L. He notes that his legs are more swollen than normal. Patient denies any cough or fever. Family notes that he is not confused at the current time. [facility] Medical History Acute on chronic respiratory failure with hypoxia and hypercapnia Anemia Asthma Atrial fibrillation Chronic respiratory failure Congestive heart failure (CHF) COPD (chronic obstructive pulmonary disease) CPAP (continuous positive airway pressure) dependence Diastolic CHF, chronic Edema Emphysema, unspecified Former smoker History of atrial fibrillation Injury of head and neck Loose, teeth Morbid obesity due to excess calories Nonrheumatic aortic (valve) insufficiency Obesity (BMI 30-39.9) On home oxygen therapy Positive occult stool blood test Restless legs Secondary pulmonary hypertension Secondary pulmonary hypertension Sleep apnea Stage 4 very severe COPD by GOLD classification Stage 4 very severe COPD by GOLD classification Wears glasses Home Medications finasteride 5 mg tablet 5 mg PO DAILY prostate 05/05/20 [History Last Taken 09/04/21] ascorbic acid (vitamin C) 500 mg tablet 1,000 mg PO DAILY vitamin 07/04/20 [History Last Taken 09/05/21] calcium carb-Ca gluc 500 mg calcium-magnesium ox-Mg gluc 250 mg tablet (Calcium Magnesium) 1 tab PO DAILY supplement 07/04/20 [History Last Taken 09/04/21] tamsulosin 0.4 mg capsule 0.8 mg PO QHS prostate 07/04/20 [History Last Taken 09/04/21] ferrous sulfate 325 mg (65 mg iron) tablet 325 mg PO DAILY supplement 10/09/20 [History Last Taken 09/05/21] aspirin 81 mg tablet,delayed release (Adult Low Dose Aspirin) 81 mg PO DAILY heart health 10/24/20 [History Last Taken 09/04/21] omeprazole 20 mg capsule,delayed release 20 mg PO DAILY GERD 07/15/21 [History Last Taken 09/04/21] albuterol sulfate 90 mcg/actuation aerosol inhaler 2 puff inhalation Q6H PRN shortness of breath or wheezing #18 grams 08/08/21 [Rx Last Taken 09/05/21] tiotropium bromide 2.5 mcg/actuation mist for inhalation (Spiriva Respimat) 2 inh inhalation DAILY sob #3 ea 10/21/21 [Rx Last Taken Unknown] budesonide-formoterol HFA 160 mcg-4.5 mcg/actuation aerosol inhaler (Symbicort) 2 puff inhalation BID breathing 01/24/22 [History Last Taken Unknown] metoprolol tartrate 25 mg tablet 25 mg PO BID blood pressure 01/24/22 [History Last Taken Unknown] furosemide 40 mg tablet (Lasix) 40 mg PO BID 30 days #60 tabs 01/29/22 [Rx Last Taken Unknown] guaifenesin 1,200 mg tablet, extended release 12 hr (Mucus Relief ER) 1,200 mg PO BID 14 days #28 tabs 01/29/22 [Rx Last Taken Unknown] potassium chloride 20 mEq tablet,extended release(part/cryst) (Klor-Con M) 40 meq PO DAILYCM 7 days #14 tabs 01/29/22 [Rx Last Taken Unknown] Allergy/AdvReac Type Severity Reaction Status Date / Time No Known Allergies Allergy Verified 01/24/22 11:19 Family History Mother Cancer stomach Father Heart disease Brother Cancer Surgical History History of surgery of head Hx of cataract surgery Hx of colonoscopy Social History Smoking Status: Former smoker pack-years: 60 Tobacco: How many years used: 30 alcohol intake: never substance use type: does not use caffeine: Yes Type: coffee Number of servings: 4 what type of physical activity do you participate in: none frequency: does not exercise ROS ROS ED Constitutional Constitutional ED: Denies chills, fever(s) or weight loss Eyes Eyes: Denies change in vision or diplopia ENT ENT ED: Denies ear pain, rhinorrhea or sore throat Cardiovascular Cardiovascular: Reports other Details: Leg swelling ; Denies chest pain, orthopnea, palpitations or racing heartbeat Respiratory/Chest Respiratory/Chest: Reports dyspnea and dyspnea on exertion; Denies cough or orthopnea Gastrointestinal Gastrointestinal: Denies abdominal pain, diarrhea, nausea or vomiting Genitourinary Genitourinary ED: Denies dysuria, hematuria or urinary frequency Musculoskeletal Musculoskeletal: Denies arthralgias or myalgias Integumentary Denies abscess or rash Neurologic Neurologic: Denies headache(s) or weakness Psychiatric Psychiatric: Denies anxiety, depression, suicidal ideation or suicidal thoughts Endocrine Endocrinology: Denies polydipsia, polyphagia or polyuria Allergic/Immunologic Allergic/Immunologic ED: Denies mouth swelling, tongue swelling or urticaria EXAM Physical Exam Const Vital Signs: 01/31/22 19:19 01/31/22 20:02 01/31/22 20:26 Temperature 98.9 F Temperature Source Temporal Pulse Rate 79 78 Respiratory Rate 30 H 19 H Respiratory Effort Non-Labored Respiratory Depth Normal Respiratory Pattern Normal Blood Pressure 139/84 H 129/63 H Blood Pressure Mean 102 85 Pulse Ox 99 93 Oxygen Delivery Method Non-Rebreather Nasal Cannula Nasal Cannula Oxygen Flow Rate (L/min) 15 6 6 Positive well nourished, well developed and obese General Appearance ED: well developed Nutritional Appearance: obese HEENT Reports normocephalic, head/scalp atraumatic and moist mucous membranes Eyes PERRL and EOMs intact bilaterally Neck no lymphadenopathy, supple and no JVD Resp normal respiratory effort and clear to auscultation bilaterally Cardio regular rate, regular rhythm and no murmurs GI normal to inspection, nondistended, normoactive bowel sounds and non-tender Palpation: soft Back/Spine no CVA tenderness and normal ROM Extremity normal to inspection General Extremety ED: Yes edema General Extremity: edema bilateral Neuro oriented x3 and CN's II-XII intact bilaterally Sensorium / Orientation: alert Motor Exam: strength 5/5 throughout Psych mental status grossly normal Mood & Affect: Negative for depressed or tearful Skin no rashes or lesions noted and no wounds MDM MDM MDM Narrative Medical decision making narrative: White count elevated at 16.4. CO2 is 43 on the BMP. Glucose 162. Troponin 13. BNP is 81 but the patient is obese and has had normal BNP's with his heart failure in the past. Chest x-ray shows chronic changes with pulmonary edema. Urinalysis from the indwelling Cruz catheter was negative for infection. There was noted 25-50 red blood cells. I will speak with the hospitalist regarding admission. Lab Data Attestation: I reviewed the patient's lab results. Labs: Laboratory Results - last 24 hr 01/31/22 01/31/22 01/31/22 19:25 19:25 19:25 WBC 16.4 H RBC 4.07 L Hgb 11.8 L Hct 40.1 MCV 98.5 H MCH 29.0 MCHC 29.4 L RDW Std Deviation 49.1 H RDW Coeff of Earle 13.5 Plt Count 252 MPV 10.5 Immature Gran % (Auto) 0.900 Neut % (Auto) 87.6 H Lymph % (Auto) 5.6 L [place] % (Auto) 5.8 Eos % (Auto) 0.0 Baso % (Auto) 0.1 Absolute Neuts (auto) 14.4 H Absolute Lymphs (auto) 0.92 Nucleated RBC % 0 PT 13.0 INR 1.0 APTT 25.8 Sodium 138 Potassium 4.8 Chloride 94 L Carbon Dioxide 43.0 H Anion Gap 1 L BUN 32 H Creatinine 0.95 Estim Creat Clear Calc 64.36 Est GFR (MDRD) Af Amer 101 Est GFR (MDRD) Non-Af 83 BUN/Creatinine Ratio 33.7 H Glucose 162 H Calcium 8.8 Total Bilirubin 0.40 AST 52 H ALT 108 H Alkaline Phosphatase 62 Troponin I High Sens 13 B-Natriuretic Peptide Total Protein 7.3 Albumin 3.0 L Globulin 4.3 H Albumin/Globulin Ratio 0.7 L Urine Color Urine Clarity Urine pH Ur Specific [place] Urine Protein Urine Glucose (UA) Urine Ketones Urine Occult Blood Urine Nitrite Urine Bilirubin Urine Urobilinogen Ur Leukocyte Esterase Urine RBC Urine WBC Ur Squamous Epith Cells Urine Bacteria Urine Mucus 01/31/22 01/31/22 19:25 20:52 WBC RBC Hgb Hct MCV MCH MCHC RDW Std Deviation RDW Coeff of Earle Plt Count MPV Immature Gran % (Auto) Neut % (Auto) Lymph % (Auto) [place] % (Auto) Eos % (Auto) Baso % (Auto) Absolute Neuts (auto) Absolute Lymphs (auto) Nucleated RBC % PT INR APTT Sodium Potassium Chloride Carbon Dioxide Anion Gap BUN Creatinine Estim Creat Clear Calc Est GFR (MDRD) Af Amer Est GFR (MDRD) Non-Af BUN/Creatinine Ratio Glucose Calcium Total Bilirubin AST ALT Alkaline Phosphatase Troponin I High Sens B-Natriuretic Peptide 81.4 Total Protein Albumin Globulin Albumin/Globulin Ratio Urine Color Yellow Urine Clarity Clear Urine pH 6.0 Ur Specific [place] 1.015 Urine Protein 30 H Urine Glucose (UA) Normal Urine Ketones Negative Urine Occult Blood 250 H Urine Nitrite Negative Urine Bilirubin Negative Urine Urobilinogen Normal Ur Leukocyte Esterase 100 H Urine RBC 25-50 SEEN Urine WBC 0-5 SEEN Ur Squamous Epith Cells 0 SEEN Urine Bacteria 0 SEEN Urine Mucus 0 SEEN EKG Initial EKG: Comments: Normal sinus rhythm with a ventricular rate of 77 bpm Discharge Plan Dx/Rx/DC Orders Clinical Impression: Acute and chronic respiratory failure with hypercapnia, Diastolic CHF, chronic Disposition Disposition: Acute Care Hospital [facility]
[2022-01-31 19:47] LABS: Absolute Lymphocyte Count 0.92 X10^3/uL (0.83-4.51); Absolute Neutrophil Count 14.4 X10^3/uL (2.0-7.7); Basophil# 0.02 X10^3/uL; Basophil% 0.1 % (0-1); Hematocrit 40.1 % (40-54); Hemoglobin 11.8 g/dL (13.0-16.5); Lymphocyte # 0.92 X10^3/ul (0.83-4.51); Lymphocyte % 5.6 % (19-41); Mean Corp Hgb Conc 29.4 g/dL (32-36); Mean Corpuscular Volume 98.5 fL (80-94); Mean Platelet Vol. 10.5 fl (6.2-12.0); Monocyte# 0.95 X10^3/uL; Monocyte% 5.8 % (0-10); NRBC Flagged by Analyzer 0 % (0-5); Neutrophil # 14.41 X10^3/uL (2.7-7.7); Neutrophil % 87.6 % (47-70); Platelet Count 252 K/mm3 (150-450); RBC Distribution Width CV 13.5 % (11.6-14.6); RBC Distribution Width SD 49.1 fl (35.1-43.9); Red Blood Count 4.07 M/mm3 (4.6-6.2); White Blood Count 16.4 K/mm3 (4.4-11.0)
[2022-01-31 19:56] LABS: Partial Thromboplast Time 25.8 Seconds (24.1-36.2)
[2022-01-31 20:07] LABS: ALB/GLOB Ratio 0.7 RATIO (0.9-2.4); AST(SGOT) 52 U/L (15-37); Alanine Aminotransfer ALT/SGPT 108 U/L (16-61); Alkaline Phosphatase 62 U/L (45-117); Anion Gap 1 (5-15); BUN 32 mg/dL (7-18); BUN/Creat Ratio 33.7 RATIO (10-20); Calcium,Total 8.8 mg/dL (8.5-10.1); Chloride 94 mmol/L (98-107); Creatinine, Serum 0.95 mg/dL (0.70-1.30); EST Glomerular Filtration Rate 83 mL/min (>60); Est Glom Filt Rate - Afr Amer 101 mL/min (>60); Estimated Creatinine Clearance 64.36 ml/min; Globulin 4.3 g/dL (2.2-4.2); Glucose 162 mg/dL (74-106); Potassium 4.8 mmol/L (3.5-5.1); Protein, Total 7.3 g/dL (6.4-8.2); Sodium Level 138 mmol/L (136-145); Troponin-I HS 13 pg/mL (3.0-78.0)
--- NOTE | 2022-01-31 20:08 | RAD_ITS ---
INDICATION: dyspnea EXAMINATION/TECHNIQUE: X-RAY - XR Chest 1 View COMPARISON: 01/25/2022 chest x-ray and 10/14/2021 chest x-ray FINDINGS: LINES/DEVICES: 01/25/2022 chest x-ray LUNGS: Symmetric mildly increased lung volumes. Chronic scarlike reticular opacities in the left mid and lower lung periphery and subtle reticular opacities in the bilateral lung bases appears chronic. Likely overlying airspace disease not significantly changed compared with 01/25/2022. No nodule or mass. No pleural effusion or pneumothorax. MEDIASTINUM AND CARDIOVASCULAR STRUCTURES: Normal size and contour of the cardiomediastinal silhouette. Tortuous thoracic aorta. No evidence of pulmonary vascular congestion. BONES AND SOFT TISSUES: No fracture or focal osseous lesion. RAD/Chest 1 View (Portable) IMPRESSION: 1. There is no significant change dating back to at least 10/14/2021 showing peripheral reticular and alveolar opacities. Electronically Signed: Chidi Madrigal DO at 21:22 EDT ,
[2022-01-31 20:15] LABS: BNP,B-Type NATRIURETIC PEPTIDE 81.4 pg/mL (0-100)
[2022-01-31 20:56] LABS: Bacteria 0 SEEN /hpf (None Seen); Mucous, Urine 0 SEEN /hpf (<or=2+); Squamous Epithelial Cells - UA 0 SEEN /hpf (0-5)
[2022-01-31 20:58] LABS: Color, Urine Yellow (Yellow); Glucose, Dipstick Normal (Normal); Ketone-Dipstick Negative (Negative); Leukocyte Esterase-Dipstick 100 /ul (Negative); Nitrite-Dipstick Negative (Negative); Occult Blood-Urine 250 /ul (Negative); Protein-Dipstick 30 mg/dl (Negative); Specific Gravity, Urine 1.015 (1.002-1.030); Urine Bilirubin Dipstick Negative (Negative); Urine Clarity Clear (Clear); Urine Urobilinogen Normal (Normal)
[2022-01-31 21:05] LABS: Red Blood Cells-Urine 25-50 SEEN /hpf (0-5); White Blood Cells 0-5 SEEN /hpf (0-5)
[2022-01-31] MEDS: Furosemide 100 MG/10 ML Vial 60 MG IV (21:37)
--- NOTE | 2022-01-31 21:47 | HP.PCM.HOS_ITS ---
[facility] - General General Date of Admission: 01/31/22 Date of Service: 01/31/22 Chief Complaint: Shortness of breath [facility] Narrative FARRAH ANDREWS, is a 72 M with a significant history of end-stage COPD; former smoker; atrial fibrillation; morbid obesity; diastolic heart failure; sleep apnea on home CPAP; and secondary pulmonary hypertension who presents to the emergency department with persistent shortness of breath. His symptoms started about 2 weeks ago. Patient was at [facility] from 01/24/2022 to 01/29/2022. He was subsequently discharged home. When he got home he passed out because he had no oxygen. Reportedly the battery of his oxygen had . Patient was taken to [facility] as that was the nearest hospital. Unfortunately patient did not like the care at [facility] so he left AGAINST MEDICAL ADVICE and came to the emergency department. On presentation to the emergency department his oxygen saturation duration was 78% and he required nonrebreather mask. Later he was able to be weaned down to his home baseline oxygen needs. [facility] Medical History Acute on chronic respiratory failure with hypoxia and hypercapnia Anemia Asthma Atrial fibrillation Chronic respiratory failure Congestive heart failure (CHF) COPD (chronic obstructive pulmonary disease) CPAP (continuous positive airway pressure) dependence Diastolic CHF, chronic Edema Emphysema, unspecified Former smoker History of atrial fibrillation Injury of head and neck Loose, teeth Morbid obesity due to excess calories Nonrheumatic aortic (valve) insufficiency Obesity (BMI 30-39.9) On home oxygen therapy Positive occult stool blood test Restless legs Secondary pulmonary hypertension Secondary pulmonary hypertension Sleep apnea Stage 4 very severe COPD by GOLD classification Stage 4 very severe COPD by GOLD classification Wears glasses Home Medications finasteride 5 mg tablet 5 mg PO DAILY prostate 05/05/20 [History Last Taken 09/04/21] ascorbic acid (vitamin C) 500 mg tablet 1,000 mg PO DAILY vitamin 07/04/20 [History Last Taken 09/05/21] calcium carb-Ca gluc 500 mg calcium-magnesium ox-Mg gluc 250 mg tablet (Calcium Magnesium) 1 tab PO DAILY supplement 07/04/20 [History Last Taken 09/04/21] tamsulosin 0.4 mg capsule 0.8 mg PO QHS prostate 07/04/20 [History Last Taken 09/04/21] ferrous sulfate 325 mg (65 mg iron) tablet 325 mg PO DAILY supplement 10/09/20 [History Last Taken 09/05/21] aspirin 81 mg tablet,delayed release (Adult Low Dose Aspirin) 81 mg PO DAILY heart health 10/24/20 [History Last Taken 09/04/21] omeprazole 20 mg capsule,delayed release 20 mg PO DAILY GERD 07/15/21 [History Last Taken 09/04/21] albuterol sulfate 90 mcg/actuation aerosol inhaler 2 puff inhalation Q6H PRN shortness of breath or wheezing #18 grams 08/08/21 [Rx Last Taken 09/05/21] tiotropium bromide 2.5 mcg/actuation mist for inhalation (Spiriva Respimat) 2 i nh inhalation DAILY sob #3 ea 10/21/21 [Rx Last Taken Unknown] budesonide-formoterol HFA 160 mcg-4.5 mcg/actuation aerosol inhaler (Symbicort) 2 puff inhalation BID breathing 01/24/22 [History Last Taken Unknown] metoprolol tartrate 25 mg tablet 25 mg PO BID blood pressure 01/24/22 [History Last Taken Unknown] furosemide 40 mg tablet (Lasix) 40 mg PO BID 30 days #60 tabs 01/29/22 [Rx Last Taken Unknown] guaifenesin 1,200 mg tablet, extended release 12 hr (Mucus Relief ER) 1,200 mg PO BID 14 days #28 tabs 01/29/22 [Rx Last Taken Unknown] potassium chloride 20 mEq tablet,extended release(part/cryst) (Klor-Con M) 40 meq PO DAILYCM 7 days #14 tabs 01/29/22 [Rx Last Taken Unknown] Allergy/AdvReac Type Severity Reaction Status Date / Time No Known Allergies Allergy Verified 01/24/22 11:19 Family History Mother Cancer stomach Father Heart disease Brother Cancer Surgical History History of surgery of head Hx of cataract surgery Hx of colonoscopy Social History Smoking Status: Former smoker pack-years: 60 Tobacco: How many years used: 30 alcohol intake: never substance use type: does not use caffeine: Yes Type: coffee Number of servings: 4 what type of physical activity do you participate in: none frequency: does not exercise ROS ROS Narrative Pertinent positives and pertinent negatives as noted in HPI. All other systems were reviewed and are negative. Vital Signs Vital Signs Vital Signs: 01/31/22 19:19 01/31/22 20:02 01/31/22 20:26 Temperature 98.9 F Temperature Source Temporal Pulse Rate 79 78 Respiratory Rate 30 H 19 H Respiratory Effort Non-Labored Respiratory Depth Normal Respiratory Pattern Normal Blood Pressure 139/84 H 129/63 H Blood Pressure Mean 102 85 Pulse Ox 99 93 Oxygen Delivery Method Non-Rebreather Nasal Cannula Nasal Cannula Oxygen Flow Rate (L/min) 15 6 6 01/31/22 21:00 01/31/22 21:39 Temperature 97.8 F Temperature Source Oral Pulse Rate 74 74 Respiratory Rate 19 H 21 H Respiratory Effort Respiratory Depth Respiratory Pattern Blood Pressure 118/63 118/63 Blood Pressure Mean 81 81 Pulse Ox 98 98 Oxygen Delivery Method Nasal Cannula Nasal Cannula Oxygen Flow Rate (L/min) 6 4 Weight Weight: 138.9 kg Body Mass Index (BMI) 49.4 Physical Exam Narrative Physical exam: General: Well-nourished, well-developed. Head: Normocephalic, atraumatic, no tenderness Eyes: Vision is grossly intact. EOMI ENT, no trauma, moist mucous membranes, no rhinorrhea Neck: Nontender, full range of motion, no spinal tenderness, deformities, step- off CVS: Regular rate and rhythm. S1-S2 present. No murmur, gallop or rub. Respiratory :Diminished, chest wall nontender, no wheezing Abdomen: Soft, nontender, nondistended, normal bowel sounds, no masses. Whitlock catheter in place. : Deferred Back: Nontender, no CVA tenderness, no midline spinal tenderness Extremities: Nontender full range of motion, no trauma Skin: Normal color, no trauma, abrasions Neuro: Alert, oriented, cranial nerves II through XII grossly intact. Psychiatry: Normal mood. Normal affect. Not depressed. Not anxious. Results Lab / Micro Data Result Diagrams: 01/31/22 19:25 01/31/22 19:25 Labs: Laboratory Results - last 24 hr 01/31/22 19:25: WBC 16.4 H, RBC 4.07 L, Hgb 11.8 L, Hct 40.1, MCV 98.5 H, MCH 29.0, MCHC 29.4 L, RDW Std Deviation 49.1 H, RDW Coeff of Earle 13.5, Plt Count 252, MPV 10.5, Immature Gran % (Auto) 0.900, Neut % (Auto) 87.6 H, Lymph % (Auto) 5.6 L, [place] % (Auto) 5.8, Eos % (Auto) 0.0, Baso % (Auto) 0.1, Absolute Neuts (auto) 14.4 H, Absolute Lymphs (auto) 0.92, Nucleated RBC % 0 01/31/22 19:25: PT 13.0, INR 1.0, APTT 25.8 01/31/22 19:25: Sodium 138, Potassium 4.8, Chloride 94 L, Carbon Dioxide 43.0 H, Anion Gap 1 L, BUN 32 H, Creatinine 0.95, Estim Creat Clear Calc 64.36, Est GFR (MDRD) Af Amer 101, Est GFR (MDRD) Non-Af 83, BUN/Creatinine Ratio 33.7 H, Glucose 162 H, Calcium 8.8, Total Bilirubin 0.40, AST 52 H, ALT 108 H, Alkaline Phosphatase 62, Troponin I High Sens 13, Total Protein 7.3, Albumin 3.0 L, Globulin 4.3 H, Albumin/Globulin Ratio 0.7 L 01/31/22 19:25: B-Natriuretic Peptide 81.4 01/31/22 20:52: Urine Color Yellow, Urine Clarity Clear, Urine pH 6.0, Ur Specific [place] 1.015, Urine Protein 30 H, Urine Glucose (UA) Normal, Urine Ketones Negative, Urine Occult Blood 250 H, Urine Nitrite Negative, Urine Bilirubin Negative, Urine Urobilinogen Normal, Ur Leukocyte Esterase 100 H, Urine RBC 25-50 SEEN, Urine WBC 0-5 SEEN, Ur Squamous Epith Cells 0 SEEN, Urine Bacteria 0 SEEN, Urine Mucus 0 SEEN Radiology Impression Chest X-Ray 01/31/22 20:08 IMPRESSION: 1. There is no significant change dating back to at least 10/14/2021 showing peripheral reticular and alveolar opacities. Electronically Signed: Chidi Madrigal DO at 21:22 EDT , Assessment & Plan Assessment/Plan (1) Diastolic CHF, chronic: (2) Secondary pulmonary hypertension: PLAN: Plan Acute on chronic heart failure with preserved ejection fraction/pulmonary hyper tension/Obstructive sleep apnea Place on monitored bed on PCU Weight on admission to the floor; and then daily Strict I&O's CXR was visualized independently interpreted and I agree with radiologist interpretation BNP of 81.4 in the setting of obesity and patient with normal to minimally raised BNP in the past Lasix 40 mg IV push bid ordered. Trend BMP Last echocardiogram on 01/26/2022 was reviewed. Echocardiogram at that time showed estimated ejection fraction of 65%; right ventricle appears mildly dilated with grossly normal right ventricle systolic pressure. Right ventricular systolic pressure was 41 mmHg. There was no hemodynamically significant valvular abnormality. Transthoracic echocardiogram to evaluate left ventricular wall motion and systolic function. Monitor electrolytes and renal function Sunil wrap to bilateral lower extremities Fluid restriction of 1500 mls daily Cardiac diet ordered. Bipap qhs and prn. Supplemental oxygen as necessary. COPD Does not appear to be in exacerbation Continue home inhalations Blood clots in urine On this presentation at the ED an episode of SOB was relieved with whitlock irrigation that showed blood clots Also on recent admission 01/24/2022 to 01/29/2022 per review of notes patient had a traumatic whitlock insertion with hematuria afterwards; for which reason his Lovenox and aspirin was held for a while. Clinical monitoring. PRN whitlock irrigation. Consider urology follow up upon discharge. Chronic anemia Stable. Trend CBC Leukocytosis White count of 16.4 on presentation. Likely from steroid use or reactive. Trend Insomnia Melatonin 10mg qhs ordered. Per family patient takes 20mg qhs mostly nights. Escalate as necessary. Morbid obesity BMI: 48.3 kg/m?. Complicates care. Lifestyle modification recommended. DVT Prophylaxis: Subcutaneous lovenox ordered. Clinical monitoring in the setting of bladder clots. Charges/Coding Visit Charges Inpatient E&M: 51015 In Hosp L3
[2022-01-31] MEDS: Ipratropium/Albuterol Sulfate 3 ML AMPUL.NEB INHALATION (23:25)
[2022-01-31] MEDS: Metoprolol Tartrate 25 MG Tablet PO (23:43)
[2022-01-31] MEDS: Tamsulosin HCl 0.4 MG Capsule 0.8 MG PO (23:43)
[2022-01-31] MEDS: MELATONIN 10 MG TABLET PO (23:43)
[2022-02-01] VITALS (17 sets, daily range): BP systolic 106–123; BP diastolic 58–63; PULSE 59–91; RESP 12–20; TEMP 35.8–36.7; O2SAT 92–98
--- NOTE | 2022-02-01 | THRO_PTH ---
PATIENT: FARRAH ANDREWS Jr. LOC: [facility] U#:[id number] AGE/SX: 72/M ROOM: [facility] [place] RE01/31/[address]: Dr. Vimal Rider DO : 1950 BED: 1 DIS: 02/04/2022 SPEC #: [id number] RECD: 02/01/22 11:54 STATUS: HANNAH REQ #: [id number] JENNIFER: 02/01/22 00:[address]: Janki Estrada DEPT: SURGICAL PATHOLOGY RECD BY: Jurgen Armas ENTERED: 02/02/22 09:32 SP TYPE: THROMBUS OTHR DR: MD Dr. Yandel Blevins MD Dr. Butros Latouf, MD Dr. Derek Brown, DO Dr. Joseph Agyepong, MD Dr. 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 AM:keenan 02/03/2022 MICROSCOPIC DESCRIPTION Slides are reviewed. GROSS DESCRIPTION Received in fixative is one container labeled with the patient's name and designated penile/bladder tissue. The specimen consists of two pieces of hemorrhagic tissue/blood clot measuring in aggregate 2.5 x 2 x 0.3 cm. The entire specimen is submitted in one cassette. / SJ:keenan 02/02/2022 TC:5 CPT: 82041
[2022-02-01 06:12] LABS: Absolute Lymphocyte Count 1.37 X10^3/uL (0.83-4.51); Absolute Neutrophil Count 8.5 X10^3/uL (2.0-7.7); Basophil# 0.01 X10^3/uL; Basophil% 0.1 % (0-1); Eosinophil# 0.03 X10^3/uL; Eosinophils% 0.3 % (0-5); Hematocrit 39.8 % (40-54); Hemoglobin 11.1 g/dL (13.0-16.5); Lymphocyte # 1.37 X10^3/ul (0.83-4.51); Lymphocyte % 12.5 % (19-41); Mean Corp Hgb Conc 27.9 g/dL (32-36); Mean Corpuscular Hgb 29.7 pg (27.0-32.0); Mean Corpuscular Volume 106.4 fL (80-94); Mean Platelet Vol. 10.8 fl (6.2-12.0); Monocyte# 1.01 X10^3/uL; Monocyte% 9.2 % (0-10); NRBC Flagged by Analyzer 0 % (0-5); Neutrophil # 8.53 X10^3/uL (2.7-7.7); Neutrophil % 77.4 % (47-70); Platelet Count 163 K/mm3 (150-450); RBC Distribution Width CV 13.6 % (11.6-14.6); Red Blood Count 3.74 M/mm3 (4.6-6.2)
[2022-02-01 06:58] LABS: Anion Gap 0 (5-15); BUN 35 mg/dL (7-18); BUN/Creat Ratio 46.9 RATIO (10-20); Calcium,Total 8.6 mg/dL (8.5-10.1); Chloride 96 mmol/L (98-107); Creatinine, Serum 0.75 mg/dL (0.70-1.30); EST Glomerular Filtration Rate 110 mL/min (>60); Est Glom Filt Rate - Afr Amer 133 mL/min (>60); Estimated Creatinine Clearance 58.94 ml/min; Glucose 123 mg/dL (74-106); Potassium 3.8 mmol/L (3.5-5.1); Sodium Level 139 mmol/L (136-145)
[2022-02-01] MEDS: Budesonide Respules 0.5 MG/2 ML AMPUL.NEB. INHALATION ×2 (07:04→19:20)
[2022-02-01] MEDS: Ipratropium/Albuterol Sulfate 3 ML AMPUL.NEB INHALATION ×3 (07:04→19:20)
[2022-02-01] MEDS: Finasteride 5 MG Tablet PO (09:42)
[2022-02-01] MEDS: Metoprolol Tartrate 25 MG Tablet PO ×2 (09:42→21:20)
[2022-02-01] MEDS: Furosemide 40 MG/4 ML Vial IV ×2 (09:42→17:32)
[2022-02-01] MEDS: Aspirin E.C. 81 MG Tablet PO (09:42)
[2022-02-01] MEDS: Pantoprazole Sodium 20 MG Tablet PO (09:43)
[2022-02-01] MEDS: Ascorbic Acid 500 MG Tablet 1000 MG PO (09:43)
[2022-02-01] MEDS: Enoxaparin 40 MG/0.4 ML Syringe SC (09:43)
--- NOTE | 2022-02-01 10:48 | PCM.PN.HOSP ---
Documented by User: MANDA Mcgowan 02/01/22 10:54 Subjective Subjective Patient seen and examined. Patient sitting in chair no distress noted. Nurse at bedside Objective Data Objective Data Vital Signs: Vital Signs Temp Pulse Resp BP Pulse Ox O2 Del Method O2 Flow Rate 98.1 F 74 20 H 111/60 92 Nasal Cannula 6 02/01/22 09:28 02/01/22 09:42 02/01/22 09:28 02/01/22 09:28 02/01/22 09:28 02/01/22 09:30 02/01/22 09:30 FiO2 45 02/01/22 03:50 Oxygen Flow Rate (L/min) 6 Oxygen Delivery Method Nasal Cannula Weight: 290 lb 5.581 oz Body Mass Index (BMI) 48.3 Intake & Output: Intake and Output for Last 24 Hours 01/30/22 01/31/22 02/01/22 23:59 23:59 23:59 Intake Total 150 / 150 120 / 120 Output Total 1250 / 1250 600 / 600 Balance -1100 / -1100 -480 / -480 Lab / Micro Data Result Diagrams: 02/01/22 05:55 02/01/22 05:55 Labs: Laboratory Results - last 24 hr 01/31/22 19:25: WBC 16.4 H, RBC 4.07 L, Hgb 11.8 L, Hct 40.1, MCV 98.5 H, MCH 29.0, MCHC 29.4 L, RDW Std Deviation 49.1 H, RDW Coeff of Earle 13.5, Plt Count 252, MPV 10.5, Immature Gran % (Auto) 0.900, Neut % (Auto) 87.6 H, Lymph % (Auto) 5.6 L, [place] % (Auto) 5.8, Eos % (Auto) 0.0, Baso % (Auto) 0.1, Absolute Neuts (auto) 14.4 H, Absolute Lymphs (auto) 0.92, Nucleated RBC % 0 01/31/22 19:25: PT 13.0, INR 1.0, APTT 25.8 01/31/22 19:25: Sodium 138, Potassium 4.8, Chloride 94 L, Carbon Dioxide 43.0 H, Anion Gap 1 L, BUN 32 H, Creatinine 0.95, Estim Creat Clear Calc 64.36, Est GFR (MDRD) Af Amer 101, Est GFR (MDRD) Non-Af 83, BUN/Creatinine Ratio 33.7 H, Glucose 162 H, Calcium 8.8, Total Bilirubin 0.40, AST 52 H, ALT 108 H, Alkaline Phosphatase 62, Troponin I High Sens 13, Total Protein 7.3, Albumin 3.0 L, Globulin 4.3 H, Albumin/Globulin Ratio 0.7 L 01/31/22 19:25: B-Natriuretic Peptide 81.4 01/31/22 20:52: Urine Color Yellow, Urine Clarity Clear, Urine pH 6.0, Ur Specific [place] 1.015, Urine Protein 30 H, Urine Glucose (UA) Normal, Urine Ketones Negative, Urine Occult Blood 250 H, Urine Nitrite Negative, Urine Bilirubin Negative, Urine Urobilinogen Normal, Ur Leukocyte Esterase 100 H, Urine RBC 25-50 SEEN, Urine WBC 0-5 SEEN, Ur Squamous Epith Cells 0 SEEN, Urine Bacteria 0 SEEN, Urine Mucus 0 SEEN 02/01/22 05:55: WBC 11.0, RBC 3.74 L, Hgb 11.1 L, Hct 39.8 L, MCV 106.4 H D, MCH 29.7, MCHC 27.9 L D, RDW Std Deviation 54.0 H, RDW Coeff of Earle 13.6, Plt Count 163, MPV 10.8, Immature Gran % (Auto) 0.500, Neut % (Auto) 77.4 H, Lymph % (Auto) 12.5 L, [place] % (Auto) 9.2, Eos % (Auto) 0.3, Baso % (Auto) 0.1, Absolute Neuts (auto) 8.5 H, Absolute Lymphs (auto) 1.37, Nucleated RBC % 0 02/01/22 05:55: Sodium 139, Potassium 3.8, Chloride 96 L, Carbon Dioxide 43.0 H, Anion Gap 0 L, BUN 35 H, Creatinine 0.75, Estim Creat Clear Calc 58.94, Est GFR (MDRD) Af Amer 133, Est GFR (MDRD) Non-Af 110, BUN/Creatinine Ratio 46.9 H, Glucose 123 H, Calcium 8.6 Radiography Diagnostic Testing: Radiology Impression Chest X-Ray 01/31/22 20:08 IMPRESSION: 1. There is no significant change dating back to at least 10/14/2021 showing peripheral reticular and alveolar opacities. Electronically Signed: Chidi Madrigal, at 21:22 EDT , Physical Exam Const alert, oriented x3 and no apparent distress HEENT head/scalp atraumatic and moist oral mucous membranes Head and Scalp: normocephalic Eyes conjunctivae normal and no scleral icterus Neck supple Resp normal respiratory effort and normal air movement Effort and Inspection: able to speak in complete sentences and symmetric chest movement Auscultation: diminished lung sounds Cardio regular rate, regular rhythm, S1 normal heart sound and S2 normal heart sound GI normal to inspection, nondistended, normoactive bowel sounds, soft to palpation and non-tender Extremity normal to inspection and full ROM General Extremity: edema bilateral lower extremity Details: moderate Neuro oriented x3, moves all extremities, no focal motor deficits and no sensory deficits noted Psych affect normal Assessment & Plan Assessment/Plan (1) Acute on chronic respiratory failure with hypoxia and hypercapnia: PLAN: Plan 1. Acute on chronic respiratory failure secondary to acute on chronic heart failure with preserved EF -Continue strict intake and output with daily weights -1500 mL fluid restriction -Patient currently on baseline oxygen, 6 L nasal cannula -Continue IV Lasix -BMP daily -Cardiac diet ordered -BiPAP at bedtime and as needed 2. COPD -Stable not currently in exacerbation 3. Urinary retention -Maintain Cruz -Irrigate Cruz as needed -Patient to follow-up with urology outpatient -Monitor for bleeding as patient is on subcu Lovenox for DVT prevention 4. Chronic anemia -Stable, CBC daily 5. Insomnia -Melatonin 10 mg nightly ordered 6. Morbid obesity, BMI 45.0-49.9 -Lifestyle modification recommended -Complicates care for chronic issues DVT prophylaxis-subcu Lovenox This patient was seen by Jen Robbins NP-C under the supervision of Dr. Estrada. 14 minutes spent in clinical coordination of patient's plan of care. Documented by User: Dr. Janki Estrada MD 02/01/22 12:22 Objective Data Lab / Micro Data Result Diagrams: 02/01/22 05:55 02/01/22 05:55 Assessment & Plan Assessment/Plan (1) Acute on chronic respiratory failure with hypoxia and hypercapnia: Charges/Coding Addendum Addendum: This patient was seen in conjunction with Vic Robbins NP. I have independently interviewed and examined the patient and reviewed pertinent historical, laboratory, and other data. I have reviewed her note and concur with her documentation Patient was seen and examined. He remains on 6 L of oxygen. He stated that the battery for his portable oxygen ran out by the time he got home from the last discharge. His called the EMS. He was sent to the [facility]. He asked to be transferred to the hospital. Patient was discharged and came to ED. He was found to be saturating in 70s on arrival. He since feels better. Patient has had difficulty in urination despite having Cruz catheter for ambulates back. Clots were removed from the cardiac cath today Physical Exam: Gen: Comfortable, not pale, not jaundiced, morbidly obese, on 6 L of oxygen CVS:HS I +II, regular, no murmurs RESP: Diminished at lung bases GI: BS present and normal, soft, nontender, no palpable organs EXT:No edema ASSESSMENT: 1. Acute on chronic respiratory failure 2. Acute heart failure preserved EF 3. Hematuria 4. Hypertension 5. Paroxysmal atrial fibrillation 6. Anemia 7. GERD 8. Morbid obesity Plan: Continue with IV Lasix, breathing treatment Urology consult Pulmonology consult Time spent retaking patient's events/history, physical examination, reviewing patient data, coordinating all aspects of patient's care, discussing with nursin minutes Visit Charges Inpatient E&M: 69580 Subs Hosp L2
[2022-02-01] MEDS: Juven (unflavored) Packet 1 PACKET PO (17:32)
[2022-02-01] MEDS: 0.9% Saline Lock 10 ML Syringe IV (17:32)
[2022-02-01] MEDS: Tamsulosin HCl 0.4 MG Capsule 0.8 MG PO (21:19)
[2022-02-01] MEDS: MELATONIN 10 MG TABLET PO (21:20)
[2022-02-02] VITALS (20 sets, daily range): BP systolic 100–113; BP diastolic 60–73; PULSE 67–963; RESP 12–24; TEMP 36.4–36.7; O2SAT 74–100
--- NOTE | 2022-02-02 05:34 | NURSING ---
pt noted to desat on 6 LNC, to 69%. pt placed on bipap with 02 saturation at 92%. Dr, RT and charge nurse provided with pt update at this time.
[2022-02-02 05:52] LABS: Absolute Lymphocyte Count 1.68 X10^3/uL (0.83-4.51); Absolute Neutrophil Count 2.9 X10^3/uL (2.0-7.7); Basophil# 0.01 X10^3/uL; Basophil% 0.2 % (0-1); Eosinophil# 0.12 X10^3/uL; Eosinophils% 2.3 % (0-5); Hematocrit 39.7 % (40-54); Hemoglobin 13.6 g/dL (13.0-16.5); Lymphocyte # 1.68 X10^3/ul (0.83-4.51); Lymphocyte % 32.8 % (19-41); Mean Corp Hgb Conc 34.3 g/dL (32-36); Mean Corpuscular Hgb 30.5 pg (27.0-32.0); Mean Platelet Vol. 11.5 fl (6.2-12.0); Monocyte# 0.38 X10^3/uL; Monocyte% 7.4 % (0-10); NRBC Flagged by Analyzer 0 % (0-5); Neutrophil # 2.92 X10^3/uL (2.7-7.7); Neutrophil % 57.1 % (47-70); Platelet Count 106 K/mm3 (150-450); RBC Distribution Width CV 11.4 % (11.6-14.6); RBC Distribution Width SD 36.5 fl (35.1-43.9); Red Blood Count 4.46 M/mm3 (4.6-6.2); White Blood Count 5.1 K/mm3 (4.4-11.0)
--- NOTE | 2022-02-02 06:12 | CON.PCM.CC_ITS ---
Assessment & Plan Assessment/Plan (1) Acute on chronic respiratory failure with hypoxia and hypercapnia: PLAN: Plan RECOMMENDATIONS: 1.? Continue high flow oxygen and wean as tolerated. 2. Continue PAP therapy with naps and nightly. 3. Continue diuresis as tolerated by hemodynamics and renal function. 4. Continue scheduled bronchodilators. 5. In light of increased oxygen requirement, obtain CTA chest. IMPRESSIONS: 1.??Acute on chronic combined respiratory failure The patient has known end-stage COPD and chronic hypoxemic respiratory failure, with what appears to be a baseline oxygen requirement of 5 to 6 L/min.? The dee ent is already on maximum triple therapy inhaler regimen at his baseline.? He has been compliant, per report, with the aforementioned medications.? The patient reportedly ran out of oxygen after the battery on his portable oxygen concentrator while being transported home from his recent hospital discharge. The patient has previously responded to IV diuretic therapy. Agree with continuing Lasix as tolerated by hemodynamics and renal function. Given the patient's increased oxygen requirement this morning and unchanged chest x- ray, will obtain CTA chest. In the interim, plan to continue scheduled bronchodilators and supplemental oxygen for saturations greater than 90%. The patient would likely benefit from palliative care involvement given the end- stage nature of his disease and frequent hospitalizations.? 2.??Obstructive sleep apnea The patient regularly utilizes nocturnal AutoPap therapy, for which he has been apparently compliant with its use according to his last pulmonary office visit note. 3.??Morbid obesity/anemia/BPH/GERD/paroxysmal atrial fibrillation Complicates care, management, recovery and prognosis.? Continue home medications as indicated. This note was generated with [employer] dictation software. It may contain incorrect words, spelling, and punctuation that were not noted in checking the note before signing. HPI Consult Data Date of Consult: 02/02/22 HPI Narrative Reason for Consultation: Acute on chronic respiratory failure HPI Narrative: The patient is a 72-year-old male, with a history as outlined below, who presented to the emergency department on January 31 with shortness of breath. The patient had just been discharged from the hospital after having been admitted January 24 through under similar circumstances. The patient has a known history of stage IV GOLD obstructive lung disease and chronic hypoxemic respiratory fail ure.? The patient's medical history is also significant for chronic heart failure with preserved ejection fraction and obstructive sleep apnea.? The patient was last seen in the pulmonary medicine clinic at the end of December 2021, at which time, he was noted to be utilizing between 5 and 6 L/min of continuous supplemental oxygen at his baseline. According to the patient, upon being discharged from the hospital, he apparently ran out of of oxygen when his portable oxygen concentrator battery on his way home. On presentation to the emergency department, the patient was noted to be afebrile and hemodynamically stable. Initial laboratory evaluation revealed a white blood cell count of 16,000. Chemistry profile was notable for a chronically elevated bicarbonate and normal creatinine. Urine analysis was unremarkable. BNP and troponin were unremarkable. The patient was placed on scheduled bronchodilators and IV diuretics. He was admitted to the progressive care unit for further management. Overnight, the patient was BiPAP dependent with an FiO2 of 40%. Although he was initially weaned to 6 L/min of oxygen this morning, the patient was again found to be hypoxemic and required 15 L/min to maintain saturations. [facility] Medical History Acute on chronic respiratory failure with hypoxia and hypercapnia Anemia Asthma Atrial fibrillation Chronic respiratory failure Congestive heart failure (CHF) COPD (chronic obstructive pulmonary disease) CPAP (continuous positive airway pressure) dependence Diastolic CHF, chronic Edema Emphysema, unspecified Former smoker History of atrial fibrillation Injury of head and neck Loose, teeth Morbid obesity due to excess calories Nonrheumatic aortic (valve) insufficiency Obesity (BMI 30-39.9) On home oxygen therapy Positive occult stool blood test Restless legs Secondary pulmonary hypertension Secondary pulmonary hypertension Sleep apnea Stage 4 very severe COPD by GOLD classification Stage 4 very severe COPD by GOLD classification Wears glasses Home Medications finasteride 5 mg tablet 5 mg PO DAILY prostate 05/05/20 [History Last Taken 09/04/21] ascorbic acid (vitamin C) 500 mg tablet 1,000 mg PO DAILY vitamin 07/04/20 [History Last Taken 09/05/21] calcium carb-Ca gluc 500 mg calcium-magnesium ox-Mg gluc 250 mg tablet (Calcium Magnesium) 1 tab PO DAILY supplement 07/04/20 [History Last Taken 09/04/21] tamsulosin 0.4 mg capsule 0.8 mg PO QHS prostate 07/04/20 [History Last Taken 09/04/21] ferrous sulfate 325 mg (65 mg iron) tablet 325 mg PO DAILY supplement 10/09/20 [History Last Taken 09/05/21] aspirin 81 mg tablet,delayed release (Adult Low Dose Aspirin) 81 mg PO DAILY heart health 10/24/20 [History Last Taken 09/04/21] omeprazole 20 mg capsule,delayed release 20 mg PO DAILY GERD 07/15/21 [History Last Taken 09/04/21] albuterol sulfate 90 mcg/actuation aerosol inhaler 2 puff inhalation Q6H PRN shortness of breath or wheezing #18 grams 08/08/21 [Rx Last Taken 09/05/21] tiotropium bromide 2.5 mcg/actuation mist for inhalation (Spiriva Respimat) 2 inh inhalation DAILY sob #3 ea 10/21/21 [Rx Last Taken Unknown] budesonide-formoterol HFA 160 mcg-4.5 mcg/actuation aerosol inhaler (Symbicort) 2 puff inhalation BID breathing 01/24/22 [History Last Taken Unknown] metoprolol tartrate 25 mg tablet 25 mg PO BID blood pressure 01/24/22 [History Last Taken Unknown] furosemide 40 mg tablet (Lasix) 40 mg PO BID 30 days #60 tabs 01/29/22 [Rx Last Taken Unknown] guaifenesin 1,200 mg tablet, extended release 12 hr (Mucus Relief ER) 1,200 mg PO BID 14 days #28 tabs 01/29/22 [Rx Last Taken Unknown] potassium chloride 20 mEq tablet,extended release(part/cryst) (Klor-Con M) 40 meq PO DAILYCM 7 days #14 tabs 01/29/22 [Rx Last Taken Unknown] Allergy/AdvReac Type Severity Reaction Status Date / Time No Known Allergies Allergy Verified 01/24/22 11:19 Family History Mother Cancer stomach Father Heart disease Brother Cancer Surgical History History of surgery of head Hx of cataract surgery Hx of colonoscopy Social History Smoking Status: Former smoker pack-years: 60 Tobacco: How many years used: 30 alcohol intake: never substance use type: does not use caffeine: Yes Type: coffee Number of servings: 4 what type of physical activity do you participate in: none frequency: does not exercise ROS Constitutional Constitutional: Denies chills, fatigue or fever(s) Eyes Eyes: Denies blurry vision or change in vision ENT HEENT: Denies dizziness, dysphagia, epistaxis or headache(s) Cardiovascular Cardiovascular: Reports dyspnea and edema; Denies chest pain, claudication or dizziness Respiratory/Chest Respiratory/Chest: Reports dyspnea Gastrointestinal Gastrointestinal: Denies abdominal pain, diarrhea, nausea or vomiting Genitourinary Genitourinary: Reports difficulty urinating Musculoskeletal Musculoskeletal: Denies arthralgias, back pain or joint pain Integumentary Integumentary: Denies lesions, rash or skin ulcer Neurologic Neurologic: Denies abnormal gait or abnormal speech Psychiatric Psychiatric: Denies anxiety or depression Endocrine Endocrinology: Denies fatigue Hematologic/Lymphatic Hematologic/Lymphatic: Denies easy bleeding or easy bruising Physical Exam Const alert and no apparent distress General Appearance: cooperative Nutritional Appearance: morbidly obese HEENT normocephalic and head/scalp atraumatic Eyes PERRL, EOMs intact bilaterally and conjunctivae normal Neck supple Chest inspection of chest normal Resp Resp Narrative: Globally diminished air movement throughout all lung mcclure without appreciable wheezes, rales or rhonchi. Cardio regular rate and regular rhythm GI normal to inspection, nondistended, normoactive bowel sounds Extremity General Extremity: edema bilateral lower extremity; Negative for clubbing Skin Skin Narrative: Wrapped lower extremities. Neuro oriented x3, CN's II-XII intact bilaterally and no focal motor deficits Psych cooperative and affect normal Lab / Micro Data Result Diagrams: 02/02/22 05:30 02/02/22 05:30 Labs: Laboratory Results - last 24 hr 02/01/22 05:55: WBC 11.0, RBC 3.74 L, Hgb 11.1 L, Hct 39.8 L, MCV 106.4 H D, MCH 29.7, MCHC 27.9 L D, RDW Std Deviation 54.0 H, RDW Coeff of Earle 13.6, Plt Count 163, MPV 10.8, Immature Gran % (Auto) 0.500, Neut % (Auto) 77.4 H, Lymph % (Auto) 12.5 L, [place] % (Auto) 9.2, Eos % (Auto) 0.3, Baso % (Auto) 0.1, Absolute Neuts (auto) 8.5 H, Absolute Lymphs (auto) 1.37, Nucleated RBC % 0 02/01/22 05:55: Sodium 139, Potassium 3.8, Chloride 96 L, Carbon Dioxide 43.0 H, Anion Gap 0 L, BUN 35 H, Creatinine 0.75, Estim Creat Clear Calc 58.94, Est GFR (MDRD) Af Amer 133, Est GFR (MDRD) Non-Af 110, BUN/Creatinine Ratio 46.9 H, Gluc ose 123 H, Calcium 8.6 02/02/22 05:30: WBC 5.1, RBC 4.46 L, Hgb 13.6, Hct 39.7 L, MCV 89.0 D, MCH 30.5, MCHC 34.3 D, RDW Std Deviation 36.5, RDW Coeff of Earle 11.4 L, Plt Count 106 L, MPV 11.5, Immature Gran % (Auto) 0.200, Neut % (Auto) 57.1, Lymph % (Auto) 32.8, [place] % (Auto) 7.4, Eos % (Auto) 2.3, Baso % (Auto) 0.2, Absolute Neuts (auto) 2.9, Absolute Lymphs (auto) 1.68, Nucleated RBC % 0 Charges/Coding Visit Charges Inpatient E&M: 96685 Init Hosp L3
[2022-02-02 06:33] LABS: ALB/GLOB Ratio 0.9 RATIO (0.9-2.4); AST(SGOT) 20 U/L (15-37); Alanine Aminotransfer ALT/SGPT 33 U/L (16-61); Albumin, Serum 2.9 g/dL (3.2-5.0); Alkaline Phosphatase 70 U/L (45-117); Anion Gap 6 (5-15); BUN 14 mg/dL (7-18); BUN/Creat Ratio 18.3 RATIO (10-20); Calcium,Total 8.2 mg/dL (8.5-10.1); Chloride 109 mmol/L (98-107); Creatinine, Serum 0.77 mg/dL (0.70-1.30); EST Glomerular Filtration Rate 106 mL/min (>60); Est Glom Filt Rate - Afr Amer 129 mL/min (>60); Estimated Creatinine Clearance 58.94 ml/min; Globulin 3.2 g/dL (2.2-4.2); Glucose 146 mg/dL (74-106); Potassium 3.6 mmol/L (3.5-5.1); Protein, Total 6.1 g/dL (6.4-8.2); Sodium Level 141 mmol/L (136-145)
[2022-02-02] MEDS: Budesonide Respules 0.5 MG/2 ML AMPUL.NEB. INHALATION ×2 (06:53→19:13)
[2022-02-02] MEDS: Ipratropium/Albuterol Sulfate 3 ML AMPUL.NEB INHALATION ×2 (06:53→19:13)
--- NOTE | 2022-02-02 08:56 | RAD_ITS ---
STUDY: X-RAY CHEST REASON FOR EXAM: Male, 72 years old. Shortness of Breath TECHNIQUE: Single AP portable view of the chest. COMPARISON: Comparison is made with prior study of 01/31/2022. FINDINGS: EKG electrodes are seen. Stable increased linear markings in the left midlung and left lower lobe with blunting of the left costophrenic angle. This may represent linear atelectasis and/or scarring. Blunting of the right costophrenic angle. Normal size heart. Normal mediastinum and earlene. Normal visualized pulmonary arteries. There is atherosclerotic tortuosity of the aortic arch and descending thoracic aorta. Normal visualized thoracic spine. Normal visualized ribs, clavicles, and shoulders. There is no demonstrated abnormality of the visualized soft tissue structures of the upper abdomen. RAD/Chest 1 View (Portable) IMPRESSION: Stable increased markings in the left lung as described with blunting of the left costophrenic angle suggestive of atelectasis and/or scarring. Stable blunting of the right costophrenic angle. Electronically Signed: Ramakrishna Levi MD at 9:24 EDT ,
[2022-02-02] MEDS: Aspirin E.C. 81 MG Tablet PO (09:39)
[2022-02-02] MEDS: Juven (unflavored) Packet 1 PACKET PO ×2 (09:39→17:38)
[2022-02-02] MEDS: Furosemide 40 MG/4 ML Vial IV ×2 (09:40→17:38)
[2022-02-02] MEDS: Finasteride 5 MG Tablet PO (09:40)
[2022-02-02] MEDS: Metoprolol Tartrate 25 MG Tablet PO (09:40)
[2022-02-02] MEDS: Ascorbic Acid 500 MG Tablet 1000 MG PO (09:40)
[2022-02-02] MEDS: Pantoprazole Sodium 20 MG Tablet PO (09:40)
--- NOTE | 2022-02-02 10:27 | CASEMGMT ---
Addendum entered by Alice Herrera 02/02/22 13:03: Per palliative liaison, pt/ once again declined palliative care stating that they need speak with son first before making any decisions. Per Ama SOUTH, son was at bedside during discussion yesterday and was on board with palliative. Ama FITTER PLACER to call son in regards to same. Carmella AUGUSTE CM Original Note: Pt had been referred to palliative last visit but had declined palliative at that time. Per Ama SOUTH, pt/ misunderstood palliative care and are now agreeable to palliative. Call to Emily at [facility] palliative to update and she states that liaison will be here today to speak with pt/ again. CM to follow. Carmella AUGUSTE CM
--- NOTE | 2022-02-02 11:35 | PCM.PN.HOSP ---
Documented by User: Jen Robbins NP-C 02/02/22 11:40 Subjective Subjective Patient seen and examined. Patient sitting in bed no distress noted. Patient currently on 15 L nasal cannula oxygen as patient was severely hypoxic at 74% on his normal 6 L nasal cannula. Objective Data Objective Data Vital Signs: Vital Signs Temp Pulse Resp BP Pulse Ox O2 Del Method O2 Flow Rate 97.7 F L 67 20 H 113/64 100 High Flow 15 02/02/22 09:04 02/02/22 09:40 02/02/22 09:04 02/02/22 09:04 02/02/22 09:04 02/02/22 09:04 02/02/22 09:04 FiO2 40 02/02/22 07:58 Oxygen Flow Rate (L/min) 15 Oxygen Delivery Method High Flow Weight: 289 lb 3.944 oz Body Mass Index (BMI) 48.3 Intake & Output: Intake and Output for Last 24 Hours 01/31/22 02/01/22 02/02/22 23:59 23:59 23:59 Intake Total 150 / 150 650 / 650 50 / 50 Output Total 1250 / 1250 2200 / 2200 350 / 350 Balance -1100 / -1100 -1550 / -1550 -300 / -300 Lab / Micro Data Result Diagrams: 02/03/22 05:55 02/03/22 05:55 Labs: Laboratory Results - last 24 hr 02/02/22 05:30: WBC 5.1, RBC 4.46 L, Hgb 13.6, Hct 39.7 L, MCV 89.0 D, MCH 30.5, MCHC 34.3 D, RDW Std Deviation 36.5, RDW Coeff of Earle 11.4 L, Plt Count 106 L, MPV 11.5, Immature Gran % (Auto) 0.200, Neut % (Auto) 57.1, Lymph % (Auto) 32.8, [place] % (Auto) 7.4, Eos % (Auto) 2.3, Baso % (Auto) 0.2, Absolute Neuts (auto) 2.9, Absolute Lymphs (auto) 1.68, Nucleated RBC % 0 02/02/22 05:30: Sodium 141, Potassium 3.6, Chloride 109 H, Carbon Dioxide 26.0, Anion Gap 6, BUN 14, Creatinine 0.77, Estim Creat Clear Calc 58.94, Est GFR (MDRD) Af Amer 129, Est GFR (MDRD) Non-Af 106, BUN/Creatinine Ratio 18.3, Glucose 146 H, Calcium 8.2 L, Total Bilirubin 0.60, AST 20, ALT 33, Alkaline Phosphatase 70, Total Protein 6.1 L, Albumin 2.9 L, Globulin 3.2, Albumin/Globulin Ratio 0.9 Radiography Diagnostic Testing: Radiology Impression Chest X-Ray 02/02/22 08:56 IMPRESSION: Stable increased markings in the left lung as described with blunting of the left costophrenic angle suggestive of atelectasis and/or scarring. Stable blunting of the right costophrenic angle. Electronically Signed: Ramakrishna Levi MD at 9:24 EDT , Physical Exam Const alert, oriented x3 and no apparent distress HEENT head/scalp atraumatic and moist oral mucous membranes Eyes conjunctivae normal and no scleral icterus Neck supple Resp normal respiratory effort and normal air movement Effort and Inspection: able to speak in complete sentences and symmetric chest movement Auscultation: diminished lung sounds Cardio regular rate, regular rhythm, S1 normal heart sound and S2 normal heart sound GI normal to inspection, nondistended, normoactive bowel sounds, soft to palpation and non-tender Extremity normal to inspection and full ROM General Extremity: edema bilateral lower extremity Details: moderate Neuro oriented x3, moves all extremities, no focal motor deficits and no sensory deficits noted Psych affect normal Assessment & Plan Assessment/Plan (1) Acute on chronic respiratory failure with hypoxia and hypercapnia: PLAN: Plan 1. Acute on chronic respiratory failure secondary to acute on chronic heart failure with preserved EF -Continue strict intake and output with daily weights -1500 mL fluid restriction -Patient requiring more oxygen today, currently on 15 L -Repeat chest x-ray -Continue IV Lasix -BMP daily -Cardiac diet ordered -BiPAP at bedtime and as needed 2. COPD -Stable not currently in exacerbation 3. Urinary retention -Cruz DC'd yesterday due to leaking, patient urinating without difficulty, some blood clots continue to pass -Patient to follow-up with urology outpatient -Monitor for bleeding as patient is on subcu Lovenox for DVT prevention 4. Chronic anemia -Stable, CBC daily 5. Insomnia -Melatonin 10 mg nightly ordered 6. Morbid obesity, BMI 45.0-49.9 -Lifestyle modification recommended -Complicates care for chronic issues DVT prophylaxis-subcu Lovenox This patient was seen by Jen Robbins, AKOSUA-C under the supervision of Dr. Rider. 13 minutes spent in clinical coordination of patient's plan of care. Documented by User: Dr. Vimal Rider DO 02/03/22 18:31 Objective Data Lab / Micro Data Result Diagrams: 02/03/22 05:55 02/03/22 05:55 Assessment & Plan Assessment/Plan (1) Acute on chronic respiratory failure with hypoxia and hypercapnia: Charges/Coding Addendum Addendum: Patient was seen and examined independently of Chapis Robbins, patient's oxygen requirement increased overnight, he appears comfortable at rest at this time. On examination he appeared older than his stated age, patient is morbidly obese. Vital signs as documented. Skin warm and dry and without overt rashes. Neck without JVD, neck was supple, trachea midline, thyroid was normal. Lungs clear bilaterally, normal air movement was noted. Heart exam notable for regular rhythm, normal sounds and absence of murmurs, rubs or gallops. Abdomen unremarkable and without evidence of organomegaly, masses, or abdominal aortic enlargement. Bowel sounds are present, abdomen is not distended. Extremities nonedematous, no cyanosis was noted, no clubbing was noted. Neuro: Cranial nerves II through XII are grossly intact, no focal motor deficits were noted, sensation to light touch and pinprick intact, motor exam 5/5 throughout. Psych: Patient is alert and oriented x3, he does not appear anxious or depressed, he does not appear agitated. #1 acute on chronic combined respiratory failure-pulmonary medicine is participating in his care, he is currently stable on nasal cannula oxygen but is requiring a higher flow rate today than yesterday #2 chronic obstructive pulmonary disease-continue present treatment, patient is being seen by pulmonary medicine #3 urinary retention-maintain Cruz at this time #4 urethral bleeding-this will be monitored at this time, patient is not on any anticoagulation at this time #5 morbid obesity-complicates care, recovery, and prognosis #6 Paroxysmal atrial fibrillation-patient is currently in sinus rhythm at this time I have reviewed Chapis Robbins's progress note including her medical assessment and plan of care and with the above additions endorse it. Total clinical time spent by myself addressing the patient's medical issues, reviewing the data, and collaborating with patient's care team: 30-minute Visit Charges Inpatient E&M: 23539 Subs Hosp L3
--- NOTE | 2022-02-02 12:32 | CT_ITS ---
STUDY: CTA CHEST REASON FOR EXAM: Male, 72 years old. Acute on Chronic Hypoxemic Respiratory Failure RADIATION DOSAGE (If Supplied By Facility): CTDIvol = ( 19.79 ) mGy, DLP = ( 544.10 ) mGycm TECHNIQUE: The examination was performed with the intravenous administration of IV 100mL Isovue-370. Post-processing of the angiographic images was performed, with multiplanar reformation and 3D reconstruction. Individualized dose optimization techniques were used for this CT. COMPARISON: Comparison is made with prior study dated 05/08/2020. FINDINGS: Normal enhancement of the main pulmonary artery and right and left pulmonary arteries. Normal enhancement of the bilateral peripheral pulmonary arteries. There is no demonstrated pulmonary embolism. There is atherosclerotic calcification of the aortic arch with tortuosity. There is no demonstrated aortic dissection. There are calcifications of the coronary arteries. Normal mediastinum. Normal hilar regions. Normal visualized trachea and bronchi. The lungs are well expanded. Mild degree of emphysematous changes. Mild increased markings in the lingular segment of the left upper lobe suggestive of scarring. This is unchanged. Normal pleura. Normal chest wall structures. There are degenerative changes of thoracic spine. Small gallstones. Hepatic cysts. The largest cyst is in the left lobe and measures 4.1 cm x 3.[address]/CTA Chest W/WO Contrast IMPRESSION: Stable emphysematous changes and scarring as described. Multiple small gallstones. Stable hepatic cysts. Electronically Signed: Ramakrishna Levi MD at 14:09 EDT ,
[2022-02-02] MEDS: Ferrous Sulfate 325 MG Tablet PO (14:06)
[2022-02-02 19:21] LABS: Hematocrit 39.8 % (40-54); Hemoglobin 11.8 g/dL (13.0-16.5)
[2022-02-02] MEDS: Tamsulosin HCl 0.4 MG Capsule 0.8 MG PO (20:26)
[2022-02-02] MEDS: MELATONIN 10 MG TABLET PO (20:26)
--- NOTE | 2022-02-02 23:31 | NURSING ---
Patient with active bleed around cath large clot at insertion site measuring currently at 7cm and continues to grow. Dr. Young aware. Cath irrigated. Bag has bonny blood and is draining appropriately.
[2022-02-03] VITALS (22 sets, daily range): BP systolic 98–129; BP diastolic 59–73; PULSE 69–146; RESP 12–24; TEMP 36.2–36.9; O2SAT 95–100
[2022-02-03 00:41] LABS: Hematocrit 36.2 % (40-54); Hemoglobin 10.8 g/dL (13.0-16.5)
[2022-02-03] MEDS: Ipratropium/Albuterol Sulfate 3 ML AMPUL.NEB INHALATION ×3 (01:36→19:14)
[2022-02-03] MEDS: LORazepam 2 MG/ML Syringe 0.5 MG IV (01:48)
[2022-02-03] MEDS: 0.9% Saline Lock 10 ML Syringe IV (01:49)
--- NOTE | 2022-02-03 06:12 | PN.CC_ITS ---
Assessment & Plan Assessment/Plan (1) Acute on chronic respiratory failure with hypoxia and hypercapnia: PLAN: Plan RECOMMENDATIONS: 1.? Continue supplemental oxygen to maintain saturations at or above 90%. 2. Continue PAP therapy with naps and nightly. 3. Okay to transition Lasix to p.o. regimen, per home schedule. 4. Continue scheduled bronchodilators. 5. Outpatient pulmonary follow-up in 2 weeks postdischarge. IMPRESSIONS: 1.??Acute on chronic combined respiratory failure The patient has known end-stage COPD and chronic hypoxemic respiratory failure, with what appears to be a baseline oxygen requirement of 5 to 6 L/min.? The patient is already on maximum triple therapy inhaler regimen at his baseline.? He has been compliant, per report, with the aforementioned medications.? The patient reportedly ran out of oxygen after the battery on his portable oxygen concentrator while being transported home from his recent hospital discharge. My suspicion is that this event led to his exacerbation. CTA chest demonstrated chronic lung findings without any evidence for pulmonary embolism. The patient's diuretics can be transition to p.o., per home regimen. Continue scheduled bronchodilators and supplemental oxygen for saturations greater than 90%. The patient would likely benefit from palliative care involvement given the end-stage nature of his disease and frequent hospitalizations.? 2.??Obstructive sleep apnea The patient regularly utilizes nocturnal AutoPap therapy, for which he has been apparently compliant with its use according to his last pulmonary office visit note. 3.??Morbid obesity/anemia/BPH/GERD/paroxysmal atrial fibrillation Complicates care, management, recovery and prognosis.? Continue home medications as indicated. This note was generated with [employer] dictation software. It may contain incorrect words, spelling, and punctuation that were not noted in checking the note before signing. Subjective Subjective The patient was seen and examined at the bedside this morning. Events from the last 24 hours have been reviewed. The patient is currently afebrile, hemodynamically stable and maintaining appropriate oxygen saturations on 5 L/min via nasal cannula. The patient is documented to be overall net -6.4 L for the hospitalization. CTA chest completed yesterday was negative for pulmonary embolism. The patient reported that he is being considered for transfer to an outside facility due to the presence of ongoing hematuria. Objective Data Objective Data The patient's most recent lab work, culture data and imaging studies have all been personally reviewed. Surface echocardiogram demonstrated moderate concentric LVH with an ejection fraction of 65%. There is no documented evidence of diastolic dysfunction. Right ventricular systolic pressure was estimated to be 41 mmHg. Vital Signs: Vital Signs Temp Pulse Resp BP Pulse Ox O2 Del Method O2 Flow Rate 97.9 F 98 18 122/73 H 97 Nasal Cannula 12 02/03/22 04:02/03/22 04:02/03/22 04:02/03/22 04:02/03/22 04:02/03/22 04:02/03/22 02:25 FiO2 40 02/03/22 02:36 Oxygen Flow Rate (L/min) 12 Oxygen Delivery Method Nasal Cannula Weight: 289 lb 3.944 oz Body Mass Index (BMI) 48.3 Intake & Output: Intake and Output for Last 24 Hours 02/01/22 02/02/22 02/03/22 23:59 23:59 23:59 Intake Total 650 / 650 50 / 290 240 / 240 Output Total 2200 / 2200 1600 / 4100 2500 / 2500 Balance -1550 / -1550 -1550 / -3810 -2260 / -2260 Lab / Micro Data Attestation: I reviewed the patient's lab results. Result Diagrams: 02/03/22 05:55 02/03/22 05:55 Labs: Laboratory Results - last 24 hr 02/02/22 05:30: Sodium 141, Potassium 3.6, Chloride 109 H, Carbon Dioxide 26.0, Anion Gap 6, BUN 14, Creatinine 0.77, Estim Creat Clear Calc 58.94, Est GFR (MDRD) Af Amer 129, Est GFR (MDRD) Non-Af 106, BUN/Creatinine Ratio 18.3, Glucose 146 H, Calcium 8.2 L, Total Bilirubin 0.60, AST 20, ALT 33, Alkaline Phosphatase 70, Total Protein 6.1 L, Albumin 2.9 L, Globulin 3.2, Albumin/Globulin Ratio 0.9 02/02/22 18:30: Hgb 11.8 L, Hct 39.8 L 02/03/22 00:35: Hgb 10.8 L, Hct 36.2 L Radiography Diagnostic Testing: Radiology Impression Chest X-Ray 02/02/22 08:56 IMPRESSION: Stable increased markings in the left lung as described with blunting of the left costophrenic angle suggestive of atelectasis and/or scarring. Stable blunting of the right costophrenic angle. Electronically Signed: Ramakrishna Levi MD at 9:24 EDT , Chest CTA 02/02/22 12:32 IMPRESSION: Stable emphysematous changes and scarring as described. Multiple small gallstones. Stable hepatic cysts. Electronically Signed: Ramakrishna Levi MD at 14:09 EDT , Physical Exam Const alert and no apparent distress Constitutional Narrative: Sitting in bedside recliner. General Appearance: cooperative Nutritional Appearance: morbidly obese HEENT normocephalic and head/scalp atraumatic Eyes PERRL, EOMs intact bilaterally and conjunctivae normal Neck supple General: trachea midline Chest inspection of chest normal Resp normal respiratory effort Resp Narrative: Globally diminished air movement throughout all lung mcclure without appreciable wheezes, rales or rhonchi. Cardio regular rate and regular rhythm GI normal to inspection, nondistended, normoactive bowel sounds Extremity General Extremity: edema bilateral lower extremity; Negative for clubbing Skin Skin Narrative: Wrapped lower extremities. Neuro oriented x3, CN's II-XII intact bilaterally and no focal motor deficits Psych cooperative and affect normal Charges/Coding Visit Charges Inpatient E&M: 41769 Subs Hosp L2
[2022-02-03 06:41] LABS: Absolute Lymphocyte Count 1.02 X10^3/uL (0.83-4.51); Absolute Neutrophil Count 13.1 X10^3/uL (2.0-7.7); Basophil# 0.02 X10^3/uL; Basophil% 0.1 % (0-1); Eosinophil# 0.14 X10^3/uL; Eosinophils% 0.9 % (0-5); Hematocrit 37.2 % (40-54); Hemoglobin 10.9 g/dL (13.0-16.5); Lymphocyte # 1.02 X10^3/ul (0.83-4.51); Lymphocyte % 6.7 % (19-41); Mean Corp Hgb Conc 29.3 g/dL (32-36); Mean Corpuscular Hgb 28.8 pg (27.0-32.0); Mean Corpuscular Volume 98.4 fL (80-94); Mean Platelet Vol. 10.7 fl (6.2-12.0); Monocyte# 0.95 X10^3/uL; Monocyte% 6.2 % (0-10); NRBC Flagged by Analyzer 0 % (0-5); Neutrophil # 13.05 X10^3/uL (2.7-7.7); Neutrophil % 85.3 % (47-70); Platelet Count 200 K/mm3 (150-450); RBC Distribution Width CV 13.3 % (11.6-14.6); RBC Distribution Width SD 48.9 fl (35.1-43.9); Red Blood Count 3.78 M/mm3 (4.6-6.2); White Blood Count 15.3 K/mm3 (4.4-11.0)
--- NOTE | 2022-02-03 06:47 | EKG12_ITS ---
Test Reason : TACHYCARDIA Blood Pressure : / mmHG Vent. Rate : 124 BPM Atrial Rate : 124 BPM P-R Int : 152 ms QRS Dur : 086 ms QT Int : 322 ms P-R-T Axes : 058 046 071 degrees QTc Int : 462 ms Sinus tachycardia with Premature supraventricular complexes with subsequent transition to atrial fibr illation with RVR Confirmed by TORI MENDEZ, GAIL ([id number]), editor farm journal [address] ([id number]) on 02/04/2022 10:50:22 AM Referred By: ARSENIO Confirmed By:GAIL VALLE MD
--- NOTE | 2022-02-03 06:53 | NURSING ---
Patient catheter irrigated every 2-2.5 hours draining appropriately
--- NOTE | 2022-02-03 07:01 | EKG12_ITS ---
Test Reason : TACHYCARDIA Blood Pressure : / mmHG Vent. Rate : 140 BPM Atrial Rate : 000 BPM P-R Int : 000 ms QRS Dur : 094 ms QT Int : 310 ms P-R-T Axes : 000 042 036 degrees QTc Int : 473 ms Atrial fibrillation with rapid ventricular response Nonspecific ST abnormality Abnormal ECG Confirmed by TORI MENDEZ, GAIL ([id number]), pictures editor [address] ([id number]) on 02/04/2022 10:52:49 AM Referred By: ARSENIO Confirmed By:GAIL VALLE MD
[2022-02-03 07:24] LABS: ALB/GLOB Ratio 0.8 RATIO (0.9-2.4); AST(SGOT) 21 U/L (15-37); Alanine Aminotransfer ALT/SGPT 69 U/L (16-61); Alkaline Phosphatase 59 U/L (45-117); BUN 40 mg/dL (7-18); BUN/Creat Ratio 58.1 RATIO (10-20); Calcium,Total 8.9 mg/dL (8.5-10.1); Carbon Dioxide > 45.0 mmol/L (21.0-32.0); Chloride 87 mmol/L (98-107); Creatinine, Serum 0.69 mg/dL (0.70-1.30); EST Glomerular Filtration Rate 120 mL/min (>60); Est Glom Filt Rate - Afr Amer 146 mL/min (>60); Estimated Creatinine Clearance 58.94 ml/min; Globulin 3.7 g/dL (2.2-4.2); Glucose 150 mg/dL (74-106); Potassium 3.8 mmol/L (3.5-5.1); Protein, Total 6.7 g/dL (6.4-8.2); Sodium Level 141 mmol/L (136-145)
[2022-02-03] MEDS: Digoxin 250 MCG/ML Ampul 500 MCG IV (08:14)
[2022-02-03] MEDS: Metoprolol Tartrate 50 MG Tablet PO ×2 (08:50→23:01)
--- NOTE | 2022-02-03 08:51 | CASEMGMT ---
According to [facility], the following are in-network tertiary facilities: [facility], [place], [facility], [facility], [facility], [facility], and . Carmella AUGUSTE CM
--- NOTE | 2022-02-03 10:00 | DS.PCM_ITS ---
Documented by User: MANDA Mcgowan 02/04/22 08:08 Providers Date of Admission: 01/31/22 Date of Discharge: 02/04/22 Primary Care Physician: Dr. Juvenal Trivedi MD Consultations 02/01/22 07:30 Consult: Associate Professor Of Kinesiology / Pulmonary Medicine Routine Consulting Provider: [facility] Reason for Consult: Acute on chronic respiratory failure EMERGENT Consult: No MD Notified: Yes Date Notified: 02/01/22 Time Notified: 07:59 Method of Notification: Text Reason For Visit: HEART FAILURE EXACERBATION Diagnosis Discharge Diagnosis (1) Acute on chronic respiratory failure with hypoxia and hypercapnia: Status: Chronic Code(s): J96.21 - Acute and chronic respiratory failure with hypoxia; J96.22 - Acute and chronic respiratory failure with hypercapnia Plan 1. Acute on chronic respiratory failure secondary to acute on chronic heart failure with preserved EF -Continue strict intake and output with daily weights -1500 mL fluid restriction -Patient requiring more oxygen today, currently on 7-8 L -Continue IV Lasix -BMP daily -Cardiac diet ordered -BiPAP at bedtime and as needed 2. Atrial fibrillation with RVR -Patient's metoprolol increased to 50 mg -IV digoxin given -Patient converted following administration of metoprolol and digoxin. currently sinus rhythm, rate controlled 3. COPD -Stable not currently in exacerbation 4. Urinary retention -Cruz DC'd yesterday due to leaking, patient urinating without difficulty, some blood clots continue to pass -Urology consulted, not currently available for consult, will request transfer for urology services. -Monitor for bleeding as patient is on subcu Lovenox for DVT prevention 5. Chronic anemia -Stable, CBC daily 6. Insomnia -Melatonin 10 mg nightly ordered 7. Morbid obesity, BMI 45.0-49.9 -Lifestyle modification recommended -Complicates care for chronic issues DVT prophylaxis-subcu Lovenox Patient on waiting list to be transferred to [facility] in [place] midnight awaiting contact from transfer center. This patient was seen by MANDA Mcgowan under the supervision of Dr. Rider. 14 minutes spent in clinical coordination of patient's plan of care. Medications at Discharge Home Medications finasteride 5 mg tablet 5 mg PO DAILY prostate 05/05/20 ascorbic acid (vitamin C) 500 mg tablet 1,000 mg PO DAILY vitamin 07/04/20 calcium carb-Ca gluc 500 mg calcium-magnesium ox-Mg gluc 250 mg tablet (Calcium Magnesium) 1 tab PO DAILY supplement 07/04/20 tamsulosin 0.4 mg capsule 0.8 mg PO QHS prostate 07/04/20 ferrous sulfate 325 mg (65 mg iron) tablet 325 mg PO DAILY supplement 10/09/20 aspirin 81 mg tablet,delayed release (Adult Low Dose Aspirin) 81 mg PO DAILY heart health 10/24/20 omeprazole 20 mg capsule,delayed release 20 mg PO DAILY GERD 07/15/21 albuterol sulfate 90 mcg/actuation aerosol inhaler 2 puff inhalation Q6H PRN shortness of breath or wheezing #18 grams 08/08/21 tiotropium bromide 2.5 mcg/actuation mist for inhalation (Spiriva Respimat) 2 inh inhalation DAILY sob #3 ea 10/21/21 budesonide-formoterol HFA 160 mcg-4.5 mcg/actuation aerosol inhaler (Symbicort) 2 puff inhalation BID breathing 01/24/22 furosemide 40 mg tablet (Lasix) 40 mg PO BID 30 days #60 tabs 01/29/22 guaifenesin 1,200 mg tablet, extended release 12 hr (Mucus Relief ER) 1,200 mg PO BID 14 days #28 tabs 01/29/22 potassium chloride 20 mEq tablet,extended release(part/cryst) (Klor-Con M) 40 meq PO DAILYCM 7 days #14 tabs 01/29/22 Hospital Course Operations None Procedures None Summary of Care Provided Minutes Spent on Discharge: 35 Hospital Course: Patient is a 72-year-old male who originally presented with shortness of breath. Patient had been discharged 2 days prior to readmission. Patient had initially went to [place] [id number] however with family really happy with his care there is a sys tolic his diuretics and his steroids despite the fact the patient has been discharged with acute CHF exacerbation and COPD exacerbation. Patient was subsequently admitted to PCU and being treated for CHF exacerbation with IV Lasix. During patient's admission he developed worsening shortness of breath and required 15 L nasal cannula oxygen however this improved and patient was on 6 L nasal cannula oxygen which is patient's baseline when he was transferred to [facility]. At 1 point patient also developed atrial fibrillation with RVR. Patient has a history of A. fib but was in sinus rhythm throughout admission until development of A. fib with RVR. Patient was given IV digoxin and metopr olol was increased to 50 mg twice daily. Approximately 2 hours following administration of digoxin patient converted back into sinus rhythm and was rate controlled until he was transferred to [facility]. Patient transferred to [facility] for urology evaluation as patient continues to have large amount of bleeding and blood clots from his catheter secondary to traumatic Cruz catheter insertion during his last admission. Physical Exam Const alert, oriented x3 and no apparent distress HEENT head/scalp atraumatic and moist oral mucous membranes Eyes conjunctivae normal and no scleral icterus Neck supple Resp normal respiratory effort and normal air movement Effort and Inspection: able to speak in complete sentences and symmetric chest movement Auscultation: diminished lung sounds Cardio regular rate, regular rhythm, S1 normal heart sound and S2 normal heart sound Cardio Narrative: Atrial fibrillation with RVR GI normal to inspection, nondistended, normoactive bowel sounds, soft to palpation and non-tender GI Narrative: Large frequent clots noted urinary catheter continued Extremity normal to inspection and full ROM General Extremity: edema bilateral lower extremity Details: moderate Neuro oriented x3, moves all extremities, no focal motor deficits and no sensory deficits noted Psych affect normal Weight / BMI Weight Weight: 289 lb 10.998 oz Body Mass Index (BMI) 48.3 ABG / Lab / Microbiology Data Result Diagrams: 02/03/22 05:55 02/03/22 05:55 Microbiology: Microbiology 02/04/22 01:20 Nasal Secretion SARS-CoV-2 Antigen (Rapid) - Final D/C Instructions Discharge Diet: Low fat / Low cholesterol, 8 Cup Fluid Restriction and 2000 mg Sodium Diet Call your doctor if you observe: Shortness of breath, Dizziness, Swelling in the ankles, Chest pain and Increased palpitations (irregular heartbeat) Meaningful Use Info Meaningful Use Diagnoses (Choose all that apply): CHF CHF MEG/ARB ordered at discharge?: No Reason MEG/ARB not ordered?: Normal EF Documented LVEF (%): 65 Discharge Plan Admission Admit Date/Time: 01/31/22 21:34 Primary Reason for Your Visit: CHF exacerbation Attending Provider: Vimal Rider Primary Care Provider: Juvenal Trivedi Consulting Providers: Nick Mitchell ; Yandel Shah ; Gee Jenkins ; Radha Friedman NP ; [place],Gordon Discharge Orders/Prescriptions Prescriptions: Continued Calcium Magnesium 500 mg calcium -250 mg tablet 1 tab PO DAILY ascorbic acid (vitamin C) 500 mg tablet 1,000 mg PO DAILY aspirin [Adult Low Dose Aspirin] 81 mg tablet,delayed release (DR/EC) 81 mg PO DAILY tamsulosin 0.4 mg capsule 0.8 mg PO QHS Label Comments: urination finasteride 5 MG tablet 5 mg PO DAILY ferrous sulfate 325 MG tablet 325 mg PO DAILY Label Comments: TAKE 1 TABLET BY MOUTH EVERY DAY omeprazole 20 mg capsule,delayed release(DR/EC) 20 mg PO DAILY budesonide-formoterol [Symbicort] 160-4.5 mcg/actuation Hfa Aerosol Inhaler 2 puff INHALATION BID Mucus Relief ER 1,200 mg Tablet Extended Release 12hr 1,200 mg PO BID 14 Days Qty: 28 0RF potassium chloride [Klor-Con M20] 20 mEq Tablet,Er Particles/Crystals 40 meq PO DAILYCM 7 Days Qty: 14 0RF furosemide [Lasix] 40 mg tablet 40 mg PO BID 30 Days Qty: 60 0RF albuterol sulfate 90 mcg/actuation HFA aerosol inhaler 2 puff INHALATION Q6H PRN (Reason: shortness of breath or wheezing) Qty: 18 3RF Spiriva Respimat 2.5 mcg/actuation mist 2 inh INHALATION DAILY Qty: 3 3RF Discontinued metoprolol tartrate 25 mg Tablet 25 mg PO BID Referrals / Follow Up: Juvenal Trivedi MD [Primary Care Provider] - Disposition Disposition (needs filled in before D/C Order can be placed): DC/Tx to Another Type of HCF Documented by User: Dr. Vimal Rider DO 02/04/22 09:14 Providers Date of Admission: 01/31/22 Reason For Visit: HEART FAILURE EXACERBATION Diagnosis Discharge Diagnosis (1) Acute on chronic respiratory failure with hypoxia and hypercapnia: Status: Chronic Code(s): J96.21 - Acute and chronic respiratory failure with hypoxia; J96.22 - Acute and chronic respiratory failure with hypercapnia Medications at Discharge Home Medications finasteride 5 mg tablet 5 mg PO DAILY prostate 05/05/20 ascorbic acid (vitamin C) 500 mg tablet 1,000 mg PO DAILY vitamin 07/04/20 calcium carb-Ca gluc 500 mg calcium-magnesium ox-Mg gluc 250 mg tablet (Calcium Magnesium) 1 tab PO DAILY supplement 07/04/20 tamsulosin 0.4 mg capsule 0.8 mg PO QHS prostate 07/04/20 ferrous sulfate 325 mg (65 mg iron) tablet 325 mg PO DAILY supplement 10/09/20 aspirin 81 mg tablet,delayed release (Adult Low Dose Aspirin) 81 mg PO DAILY heart health 10/24/20 omeprazole 20 mg capsule,delayed release 20 mg PO DAILY GERD 07/15/21 albuterol sulfate 90 mcg/actuation aerosol inhaler 2 puff inhalation Q6H PRN shortness of breath or wheezing #18 grams 08/08/21 tiotropium bromide 2.5 mcg/actuation mist for inhalation (Spiriva Respimat) 2 inh inhalation DAILY sob #3 ea 10/21/21 budesonide-formoterol HFA 160 mcg-4.5 mcg/actuation aerosol inhaler (Symbicort) 2 puff inhalation BID breathing 01/24/22 furosemide 40 mg tablet (Lasix) 40 mg PO BID 30 days #60 tabs 01/29/22 guaifenesin 1,200 mg tablet, extended release 12 hr (Mucus Relief ER) 1,200 mg PO BID 14 days #28 tabs 01/29/22 potassium chloride 20 mEq tablet,extended release(part/cryst) (Klor-Con M) 40 meq PO DAILYCM 7 days #14 tabs 01/29/22 ABG / Lab / Microbiology Data Result Diagrams: 02/03/22 05:55 02/03/22 05:55 Discharge Plan Admission Admit Date/Time: 01/31/22 21:34 Primary Reason for Your Visit: CHF exacerbation Attending Provider: Vimal Rider Primary Care Provider: Juvenal Trivedi Consulting Providers: Nick Mitchell ; Yandel Shah ; Gee Jenkins ; Afua Friedman ENVIRONMENTAL PLANNER ; Janki Estrada Discharge Orders/Prescriptions Prescriptions: Continued Calcium Magnesium 500 mg calcium -250 mg tablet 1 tab PO DAILY ascorbic acid (vitamin C) 500 mg tablet 1,000 mg PO DAILY aspirin [Adult Low Dose Aspirin] 81 mg tablet,delayed release (DR/EC) 81 mg PO DAILY tamsulosin 0.4 mg capsule 0.8 mg PO QHS Label Comments: urination finasteride 5 MG tablet 5 mg PO DAILY ferrous sulfate 325 MG tablet 325 mg PO DAILY Label Comments: TAKE 1 TABLET BY MOUTH EVERY DAY omeprazole 20 mg capsule,delayed release(DR/EC) 20 mg PO DAILY budesonide-formoterol [Symbicort] 160-4.5 mcg/actuation Hfa Aerosol Inhaler 2 puff INHALATION BID Mucus Relief ER 1,200 mg Tablet Extended Release 12hr 1,200 mg PO BID 14 Days Qty: 28 0RF potassium chloride [Klor-Con M20] 20 mEq Tablet,Er Particles/Crystals 40 meq PO DAILYCM 7 Days Qty: 14 0RF furosemide [Lasix] 40 mg tablet 40 mg PO BID 30 Days Qty: 60 0RF albuterol sulfate 90 mcg/actuation HFA aerosol inhaler 2 puff INHALATION Q6H PRN (Reason: shortness of breath or wheezing) Qty: 18 3RF Spiriva Respimat 2.5 mcg/actuation mist 2 inh INHALATION DAILY Qty: 3 3RF Discontinued metoprolol tartrate 25 mg Tablet 25 mg PO BID Referrals / Follow Up: Juvenal Trivedi MD [Primary Care Provider] - Disposition Disposition (needs filled in before D/C Order can be placed): DC/Tx to Another Type of HCF Charges/Coding Addendum Addendum: Patient was seen and examined on 02/03/2022 independently of Chapis Robbins, it was felt that the patient should be transferred to a tertiary hospital and this transfer did not occur until the morning hours of 02/04/2022. On examination he appeared older than stated age, he appeared in no medical distress, he was morbidly obese. Vital signs as documented. Skin warm and dry and without overt rashes. Neck without JVD, neck was supple, trachea midline, thyroid was normal. Lungs clear bilaterally, normal air movement was noted. Heart exam notable for regular rhythm, normal sounds and absence of murmurs, rubs or gallops. Abdomen unremarkable and without evidence of organomegaly, masses, or abdominal aortic enlargement. Bowel sounds are present, abdomen is not distended. Extremities nonedematous, no cyanosis was noted, no clubbing was noted. Neuro: Cranial nerves II through XII are grossly intact, no focal motor deficits were noted, sensation to light touch and pinprick intact, motor exam 5/5 throughout. Psych: Patient is alert and oriented x3, he does not appear anxious or depressed, he does not appear agitated. #1 acute on chronic combined respiratory failure- #2 chronic obstructive pulmonary disease #3 urinary retention #4 urethral bleeding-etiology unknown #5 morbid obesity #6 leukocytosis-etiology unclear I have reviewed Chapis Itzel's discharge summary including her medical assessment and plan of care and endorse it. Total clinical time spent by myself addressing patient's medical issues, reviewing the data, and collaborating with patient's care team: 30 minutes Visit Charges Inpatient E&M: 11917 Disch Hosp
[2022-02-03] MEDS: Pantoprazole Sodium 20 MG Tablet PO (10:17)
[2022-02-03] MEDS: Ascorbic Acid 500 MG Tablet 1000 MG PO (10:17)
[2022-02-03] MEDS: Ferrous Sulfate 325 MG Tablet PO (10:17)
[2022-02-03] MEDS: Finasteride 5 MG Tablet PO (10:17)
[2022-02-03] MEDS: Juven (unflavored) Packet 1 PACKET PO ×2 (10:17→17:44)
--- NOTE | 2022-02-03 10:52 | CASEMGMT ---
Readmission chart review: 01/24-01/29/22 CHF, COPD exac 01/31/22-current HF exac Pt initially presented to [facility] ED via EMS on 01/24/22 for low oxygen saturation at home of 78%. Pt with lethargy. Pt admitted to ICU on bipap. Pt is normally on 5-6L home oxygen. Palliative c/s made but pt/ then declined. Pt was set up with [facility] at discharge. Apparently, did not charge pt's POC and when pt was on way home from hospital, his POC and pt ended up in respiratory failure and was admitted at [facility]. Per family, [facility] then took pt off his lasix and steroid. Attempt was made per family request to transfer pt back to [facility] but apparently pt was stable at that time and transfer was not necessary. Family then signed pt out of [facility] AMA and brought pt back to [facility] ED on 01/31/22. Pt was initially on NRB but was able to be weaned down to his 5-6L. Pt's O2 need then increased on 02/02/22 requiring 12-15L during day. TRANSFER CAR OPERATOR DRIER also re-ordered palliative c/s as she stated pt/family were interested and fully understood palliative now. Palliative liaison in again to speak with pt and pt/ declined palliative again. Pt has also has continuous hematuria s/p traumatic whitlock insertion previously. Currently, there is no urologist coverage at [facility] and pt will likely need transferred to tertiary facility. Pt also went into Afib RVR with hx of same but has since converted to NSR. Pt is currently on 6L nc. CM to follow for any further discharge planning/needs. SStdeneen AUGUSTE CM
--- NOTE | 2022-02-03 14:21 | PN.HOSP_ITS ---
Documented by User: Jen Robbins NP-Evaristo 02/03/22 14:25 Subjective Subjective Seen and examined. Patient sitting in chair no distress noted. Patient currently in atrial fibrillation RVR. Patient continues to have large amount of clots Cruz catheter. Urology consulted but Dr. Macias is not currently av ailable and will not be available for a few days. Discussed with patient and family need to be transferred for further follow-up urology eval, voiced understanding. Objective Data Objective Data Vital Signs: Vital Signs Temp Pulse Resp BP Pulse Ox O2 Del Method O2 Flow Rate 97.1 F L 70 18 98/62 97 High Flow 6 02/03/22 09:15 02/03/22 13:12 02/03/22 13:12 02/03/22 09:15 02/03/22 13:12 02/03/22 13:12 02/03/22 13:12 FiO2 40 02/03/22 02:36 Oxygen Flow Rate (L/min) 6 Oxygen Delivery Method High Flow Weight: 289 lb 10.998 oz Body Mass Index (BMI) 48.3 Intake & Output: Intake and Output for Last 24 Hours 02/01/22 02/02/22 02/03/22 23:59 23:59 23:59 Intake Total 650 / 650 50 / 290 720 / 720 Output Total 2200 / 2200 1600 / 4100 3400 / 3400 Balance -1550 / -1550 -1550 / -3810 -2680 / -2680 Lab / Micro Data Result Diagrams: 02/03/22 05:55 02/03/22 05:55 Labs: Laboratory Results - last 24 hr 02/02/22 18:30: Hgb 11.8 L, Hct 39.8 L 02/03/22 00:35: Hgb 10.8 L, Hct 36.2 L 02/03/22 05:55: WBC 15.3 H, RBC 3.78 L, Hgb 10.9 L, Hct 37.2 L, MCV 98.4 H D, MCH 28.8, MCHC 29.3 L D, RDW Std Deviation 48.9 H, RDW Coeff of Earle 13.3, Plt Count 200, MPV 10.7, Immature Gran % (Auto) 0.800, Neut % (Auto) 85.3 H, Lymph % (Auto) 6.7 L, Barren % (Auto) 6.2, Eos % (Auto) 0.9, Baso % (Auto) 0.1, Absolute Neuts (auto) 13.1 H, Absolute Lymphs (auto) 1.02, Nucleated RBC % 0 02/03/22 05:55: Sodium 141, Potassium 3.8, Chloride 87 L, Carbon Dioxide > 45.0 H*, Anion Gap TNP, BUN 40 H, Creatinine 0.69 L, Estim Creat Clear Calc 58.94, Est GFR (MDRD) Af Amer 146, Est GFR (MDRD) Non-Af 120, BUN/Creatinine Ratio 58.1 H, Glucose 150 H, Calcium 8.9, Total Bilirubin 0.60, AST 21, ALT 69 H, Alkaline Phosphatase 59, Total Protein 6.7, Albumin 3.0 L, Globulin 3.7, Albumin/Globulin Ratio 0.8 L Physical Exam Const alert, oriented x3 and no apparent distress HEENT head/scalp atraumatic and moist oral mucous membranes Eyes conjunctivae normal and no scleral icterus Neck supple Resp normal respiratory effort and normal air movement Effort and Inspection: able to speak in complete sentences and symmetric chest movement Auscultation: diminished lung sounds Cardio S1 normal heart sound and S2 normal heart sound Cardio Narrative: Atrial fibrillation with RVR GI normal to inspection, nondistended, normoactive bowel sounds, soft to palpation and non-tender GI Narrative: Large frequent clots noted urinary catheter continued Extremity normal to inspection and full ROM General Extremity: edema bilateral lower extremity Details: moderate Neuro oriented x3, moves all extremities, no focal motor deficits and no sensory deficits noted Psych affect normal Assessment & Plan Assessment/Plan (1) Acute on chronic respiratory failure with hypoxia and hypercapnia: PLAN: Plan 1. Acute on chronic respiratory failure secondary to acute on chronic heart failure with preserved EF -Continue strict intake and output with daily weights -1500 mL fluid restriction -Patient requiring more oxygen today, currently on 7-8 L -Continue IV Lasix -BMP daily -Cardiac diet ordered -BiPAP at bedtime and as needed 2. Atrial fibrillation with RVR -Patient's metoprolol increased to 50 mg -IV digoxin given -Patient converted following administration of metoprolol and digoxin. currently sinus rhythm, rate controlled 3. COPD -Stable not currently in exacerbation 4. Urinary retention -Cruz DC'd yesterday due to leaking, patient urinating without difficulty, some blood clots continue to pass -Urology consulted, not currently available for consult, will request transfer for urology services. -Monitor for bleeding as patient is on subcu Lovenox for DVT prevention 5. Chronic anemia -Stable, CBC daily 6. Insomnia -Melatonin 10 mg nightly ordered 7. Morbid obesity, BMI 45.0-49.9 -Lifestyle modification recommended -Complicates care for chronic issues DVT prophylaxis-subcu Lovenox Patient on waiting list to be transferred to [facility] in [place] midnight awaiting contact from transfer center. This patient was seen by Jen Robbins, AKOSUA-C under the supervision of Dr. Rider. 14 minutes spent in clinical coordination of patient's plan of care. Documented by User: Dr. Vimal Rider DO 02/03/22 18:16 Objective Data Lab / Micro Data Result Diagrams: 02/03/22 05:55 02/03/22 05:55 Assessment & Plan Assessment/Plan (1) Acute on chronic respiratory failure with hypoxia and hypercapnia: Charges/Coding Addendum Addendum: Patient was seen and examined today independently of Chapis Robbins, he continues to have bleeding from his urethra and because we do not have urology coverage, he will have to be transferred to another hospital for treatment-patient understands this, I also talked with the patient's family who were in the room at the time of my examination. On examination he appeared older than his stated age, patient is morbidly obese. Vital signs as documented. Skin warm and dry and without overt rashes. Neck without JVD, neck was supple, trachea midline, thyroid was normal. Lungs clear bilaterally, normal air movement was noted. Heart exam notable for regular rhythm, normal sounds and absence of murmurs, rubs or gallops. Abdomen unremarkable and without evidence of organomegaly, masses, or abdominal aortic enlargement. Bowel sounds are present, abdomen is not distended. Extremities nonedematous, no cyanosis was noted, no clubbing was noted. Neuro: Cranial nerves II through XII are grossly intact, no focal motor deficits were noted, sensation to light touch and pinprick intact, motor exam 5/5 throughout. Psych: Patient is alert and oriented x3, he does not appear anxious or depressed, he does not appear agitated. #1 acute on chronic combined respiratory failure-pulmonary medicine is participating in his care, he requires 5 to 6 L via nasal cannula at this time. #2 chronic obstructive pulmonary disease-continue present treatment, patient is being seen by pulmonary medicine #3 urinary retention-maintain Cruz at this time #4 urethral bleeding-patient will need to be transferred for evaluation by urology. Monitor labs as necessary #5 morbid obesity-complicates care, recovery, and prognosis #6 leukocytosis-etiology unclear, CBC will be rechecked tomorrow if the patient remains in the hospital here. I have reviewed Chapis Itzel's progress note including her medical assessment and plan of care with the above additions endorse it. Total clinical time spent by myself addressing the patient's medical issues, reviewing the data, and collaborating with patient's care team: 30 minutes Visit Charges Inpatient E&M: [id number] Subs Hosp L3
[2022-02-03] MEDS: Furosemide 40 MG/4 ML Vial IV (17:44)
[2022-02-03] MEDS: Budesonide Respules 0.5 MG/2 ML AMPUL.NEB. INHALATION (19:14)
[2022-02-03] MEDS: Tamsulosin HCl 0.4 MG Capsule 0.8 MG PO (22:59)
[2022-02-03] MEDS: MELATONIN 10 MG TABLET PO (23:05)
[2022-02-04 03:00] VITALS: PULSE 65
[2022-02-04 03:03] VITALS: BP 103/77; PULSE 64; RESP 18; TEMP 36.6; O2SAT 94
--- NOTE | 2022-02-04 08:00 | DCINST_ITS ---
Discharge Instructions Diet Discharge Diet: Low fat / Low cholesterol, 8 Cup Fluid Restriction and 2000 mg Sodium Diet Dressing / Incision Call your doctor if you observe: Shortness of breath, Dizziness, Swelling in the ankles, Chest pain and Increased palpitations (irregular heartbeat) Follow Up Care Test Results: Test results from this visit will be discussed in further detail at your follow- up appointment, if applicable. Discharge Plan Admission Admit Date/Time: 01/31/22 21:34 Primary Reason for Your Visit: CHF exacerbation Attending Provider: Vimal Rider Primary Care Provider: Juvenal Trivedi Consulting Providers: Nick Mitchell ; Yandel Shah ; Gee Jenkins ; Afua Friedman NP ; Janki Estrada Discharge Orders/Prescriptions Prescriptions: Continued Calcium Magnesium 500 mg calcium -250 mg tablet 1 tab PO DAILY ascorbic acid (vitamin C) 500 mg tablet 1,000 mg PO DAILY aspirin [Adult Low Dose Aspirin] 81 mg tablet,delayed release (DR/EC) 81 mg PO DAILY tamsulosin 0.4 mg capsule 0.8 mg PO QHS Label Comments: urination finasteride 5 MG tablet 5 mg PO DAILY ferrous sulfate 325 MG tablet 325 mg PO DAILY Label Comments: TAKE 1 TABLET BY MOUTH EVERY DAY omeprazole 20 mg capsule,delayed release(DR/EC) 20 mg PO DAILY budesonide-formoterol [Symbicort] 160-4.5 mcg/actuation Hfa Aerosol Inhaler 2 puff INHALATION BID Mucus Relief ER 1,200 mg Tablet Extended Release 12hr 1,200 mg PO BID 14 Days Qty: 28 0RF potassium chloride [Klor-Con M20] 20 mEq Tablet,Er Particles/Crystals 40 meq PO DAILYCM 7 Days Qty: 14 0RF furosemide [Lasix] 40 mg tablet 40 mg PO BID 30 Days Qty: 60 0RF albuterol sulfate 90 mcg/actuation HFA aerosol inhaler 2 puff INHALATION Q6H PRN (Reason: shortness of breath or wheezing) Qty: 18 3RF Spiriva Respimat 2.5 mcg/actuation mist 2 inh INHALATION DAILY Qty: 3 3RF Discontinued metoprolol tartrate 25 mg Tablet 25 mg PO BID Referrals / Follow Up: Juvenal Trivedi MD [Primary Care Provider] - Disposition Disposition (needs filled in before D/C Order can be placed): DC/Tx to Another Type of HCF
== END 2022-02-04 04:06 | disposition short-term general hospital (02) | DRG 291 ==
LOC: ED 21:36 → PCU 21:55
PROVIDERS: Family Medicine; Nurse Practitioner Family; Admitting Provider Hospitalist; Emergency Provider Emergency Medicine; PCP Internal Medicine; Visit Provider Internal Medicine
DX: I11.0 Hypertensive heart disease with heart failure (principal); J96.21 Acute and chronic respiratory failure with hypoxia; I50.33 Acute on chronic diastolic (congestive) heart failure; J96.22 Acute and chronic respiratory failure with hypercapnia; Z68.42 Body mass index [BMI] 45.0-49.9, adult; I27.29 Other secondary pulmonary hypertension; J43.9 Emphysema, unspecified; I48.0 Paroxysmal atrial fibrillation; E66.01 Morbid (severe) obesity due to excess calories; K21.9 Gastro-esophageal reflux disease without esophagitis; D64.9 Anemia, unspecified; G47.33 Obstructive sleep apnea (adult) (pediatric); D72.828 Other elevated white blood cell count; N40.1 Benign prostatic hyperplasia with lower urinary tract symptoms; G47.00 Insomnia, unspecified; N36.8 Other specified disorders of urethra; R33.8 Other retention of urine; Z79.82 Long term (current) use of aspirin; Z99.81 Dependence on supplemental oxygen; Z79.899 Other long term (current) drug therapy; Z87.891 Personal history of nicotine dependence
CPT/HCPCS: 36415; 71045; 71275; 80048; 80053; 81001; 83880; 84484; 85014; 85018; 85025; 85610; 85730; 87426; 88304; 88305; 93005; 94002; 94003; 94640; 94762; 97162; 97166; 97530; 99284; Q9967; A4216; J1940

== ENCOUNTER 2022-02-24 16:04 | Inpatient (IN) | payer MEDICARE, SELFPAY ==
[2022-02-24] VITALS (20 sets, daily range): BP systolic 104–168; BP diastolic 60–98; PULSE 66–83; RESP 12–29; TEMP 33.8–36.1; O2SAT 88–100; BMI 49.3; BMI 48.9
--- NOTE | 2022-02-24 16:32 | CT_ITS ---
STUDY: CT BRAIN WITHOUT CONTRAST REASON FOR EXAM: Male, 72 years old. injury TECHNIQUE: Transaxial CT imaging of the brain was performed without administration of intravenous contrast material. Individualized dose optimization techniques were used for this CT. COMPARISON: None FINDINGS: Right frontal bone leida hole. There is no underlying fracture. Soft tissue swelling of the right periorbital region. 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 Normal size ventricles and extra-axial spaces for the patient''s age. Normal white matter tracts of the cerebral hemispheres. Normal basal ganglia and thalami. Normal brainstem. Normal cerebellum. There is no intracranial hemorrhage. There are no findings of an acute ischemic infarction. Normal visualized paranasal sinuses. ASPECTS 10 CT/Brain/Head without Contrast IMPRESSION: There are no acute intracranial findings. There is no underlying fracture. Soft tissue swelling of the right periorbital region. Electronically Signed: Helio Kirby MD at 17:39 EDT ,
--- NOTE | 2022-02-24 16:33 | EKG12_ITS ---
Test Reason : Fall Blood Pressure : / mmHG Vent. Rate : 073 BPM Atrial Rate : 073 BPM P-R Int : 210 ms QRS Dur : 108 ms QT Int : 410 ms P-R-T Axes : 080 031 046 degrees QTc Int : 451 ms Sinus rhythm with 1st degree A-V block Otherwise normal ECG Confirmed by LEESA MENDEZ, DESTINEE ([id number]), supervising editor news reel [email or web address] [id number]) on 02/26/2022 1:58:14 PM Referred By: Reza Confirmed By:DESTINEE LANDERS MD
[2022-02-24 16:35] LABS: Bedside Glucose 118 mg/dL (74-106)
[2022-02-24] MEDS: Furosemide 100 MG/10 ML Vial 60 MG IV (16:47)
[2022-02-24 16:50] LABS: Absolute Lymphocyte Count 0.65 X10^3/uL (0.83-4.51); Absolute Neutrophil Count 8.1 X10^3/uL (2.0-7.7); Basophil# 0.03 X10^3/uL; Basophil% 0.3 % (0-1); Eosinophil# 0.12 X10^3/uL; Eosinophils% 1.2 % (0-5); Hematocrit 35.5 % (40-54); Hemoglobin 10.1 g/dL (13.0-16.5); Lymphocyte # 0.65 X10^3/ul (0.83-4.51); Lymphocyte % 6.7 % (19-41); Mean Corp Hgb Conc 28.5 g/dL (32-36); Mean Corpuscular Hgb 29.9 pg (27.0-32.0); Mean Platelet Vol. 9.4 fl (6.2-12.0); Monocyte# 0.67 X10^3/uL; NRBC Flagged by Analyzer 0 % (0-5); Neutrophil # 8.07 X10^3/uL (2.7-7.7); Neutrophil % 83.8 % (47-70); Platelet Count 199 K/mm3 (150-450); RBC Distribution Width CV 14.4 % (11.6-14.6); RBC Distribution Width SD 56.3 fl (35.1-43.9); Red Blood Count 3.38 M/mm3 (4.6-6.2); White Blood Count 9.6 K/mm3 (4.4-11.0)
--- NOTE | 2022-02-24 16:53 | ED.VIS.DYS ---
HPI History of Present Illness Chief Complaint: Shortness of Breath Informant: spouse/S.O. and family Narrative Narrative: 72-year-old male presenting to the emergency room with chief complaint of trouble breathing. Patient has a history of end-stage COPD as well as CHF. He is on chronic home oxygen around 6 L nasal cannula. Family states that yesterday he was having some difficulty breathing. His cough however is unchanged he was not having fevers. Today he has become progressively more lethargic. He did eat some for lunch today. However family notes that now he is basically sleeping and that he had urinary incontinence while in the chair. Patient has been hospitalized multiple times this month. Family states that they have not really discussed hospice or palliative care in depth. They do know that he does not want a endotracheal tube. [facility] Medical History Acute on chronic respiratory failure with hypoxia and hypercapnia Anemia Asthma Atrial fibrillation Chronic respiratory failure Congestive heart failure (CHF) COPD (chronic obstructive pulmonary disease) CPAP (continuous positive airway pressure) dependence Diastolic CHF, chronic Edema Emphysema, unspecified Former smoker History of atrial fibrillation Injury of head and neck Loose, teeth Morbid obesity due to excess calories Nonrheumatic aortic (valve) insufficiency Obesity (BMI 30-39.9) On home oxygen therapy Positive occult stool blood test Restless legs Secondary pulmonary hypertension Secondary pulmonary hypertension Sleep apnea Stage 4 very severe COPD by GOLD classification Stage 4 very severe COPD by GOLD classification Wears glasses Home Medications finasteride 5 mg tablet 5 mg PO DAILY prostate 05/05/20 [History Last Taken 09/04/21] ascorbic acid (vitamin C) 500 mg tablet 1,000 mg PO DAILY vitamin 07/04/20 [History Last Taken 09/05/21] tamsulosin 0.4 mg capsule 0.8 mg PO QHS prostate 07/04/20 [History Last Taken 09/04/21] ferrous sulfate 325 mg (65 mg iron) tablet 325 mg PO DAILY supplement 10/09/20 [History Last Taken 09/05/21] aspirin 81 mg tablet,delayed release (Adult Low Dose Aspirin) 81 mg PO DAILY heart health 10/24/20 [History Last Taken 09/04/21] omeprazole 20 mg capsule,delayed release 20 mg PO DAILY GERD 07/15/21 [History Last Taken 09/04/21] albuterol sulfate 90 mcg/actuation aerosol inhaler 2 puff inhalation Q6H PRN shortness of breath or wheezing #18 grams 08/08/21 [Rx Last Taken 09/05/21] tiotropium bromide 2.5 mcg/actuation mist for inhalation (Spiriva Respimat) 2 inh inhalation DAILY sob #3 ea 10/21/21 [Rx Last Taken Unknown] budesonide-formoterol HFA 160 mcg-4.5 mcg/actuation aerosol inhaler (Symbicort) 2 puff inhalation BID breathing 01/24/22 [History Last Taken Unknown] furosemide 40 mg tablet (Lasix) 40 mg PO BID 30 days #60 tabs 01/29/22 [Rx Last Taken Unknown] bumetanide 1 mg tablet 1 mg PO BID #60 tabs 02/20/22 [Rx Last Taken Unknown] calcium 400 mg-vit D3 83.3 mcg-magnesium 166.7 mg-zinc 16.7 mg capsule 1 cap PO DAILY 02/20/22 [History Last Taken Unknown] cholecalciferol (vitamin D3) 25 mcg (1,000 unit) tablet 25 mcg PO DAILY 02/20/22 [History Last Taken Unknown] ipratropium 0.5 mg-albuterol 3 mg (2.5 mg base)/3 mL nebulization soln 3 ml inhalation Q6H PRN Shortness Of Breath 02/20/22 [History Last Taken Unknown] metoprolol tartrate 25 mg tablet 25 mg PO BID 02/20/22 [History Last Taken Unknown] potassium chloride 20 mEq tablet,extended release(part/cryst) (Klor-Con M) 20 meq PO DAILYCM 02/20/22 [History Last Taken Unknown] zaleplon 5 mg capsule 1 cap PO QHS 02/24/22 [History Last Taken Unknown] Allergy/AdvReac Type Severity Reaction Status Date / Time No Known Allergies Allergy Verified 02/24/22 16:10 Family History Mother Cancer stomach Father Heart disease Brother Cancer Surgical History History of surgery of head Hx of cataract surgery Hx of colonoscopy Social History Smoking Status: Former smoker pack-years: 60 Tobacco: How many years used: 30 alcohol intake: never substance use type: does not use caffeine: Yes Type: coffee Number of servings: 4 what type of physical activity do you participate in: none frequency: does not exercise ROS ROS ED Review of Systems ROS Unobtainable: due to mental status EXAM Physical Exam Const Vital Signs: 02/24/22 16:06 02/24/22 16:15 02/24/22 16:23 Temperature 96.5 F L 96.9 F L Temperature Source Temporal Temporal Pulse Rate 83 77 Respiratory Rate 29 H 20 H Respiratory Effort Short of Breath Accessory Muscle Use Head [place] Respiratory Depth Normal Respiratory Pattern Normal Blood Pressure 157/76 H 157/76 H Blood Pressure Mean 103 103 Pulse Ox 88 98 Oxygen Delivery Method Nasal Cannula Nasal Cannula Nasal Cannula Oxygen Flow Rate (L/min) 6 8 8 Fraction of Inspired Oxygen (FIO2) 02/24/22 16:27 02/24/22 16:54 02/24/22 17:05 Temperature Temperature Source Pulse Rate 74 74 Respiratory Rate 16 12 Respiratory Effort Respiratory Depth Respiratory Pattern Gasping Blood Pressure 104/60 Blood Pressure Mean 74 Pulse Ox 98 97 96 Oxygen Delivery Method Nasal Cannula Bi-pap Oxygen Flow Rate (L/min) 8 Fraction of Inspired Oxygen (FIO2) 50 50 02/24/22 17:00 02/24/22 18:00 02/24/22 18:45 Temperature 96.9 F L 93.1 F L 92.9 F L Temperature Source Temporal Core Core Pulse Rate 69 68 67 Respiratory Rate 16 14 16 Respiratory Effort Respiratory Depth Respiratory Pattern Blood Pressure 121/93 H 125/67 H 121/70 H Blood Pressure Mean 102 86 87 Pulse Ox 97 97 98 Oxygen Delivery Method Bi-pap Bi-pap Bi-pap Oxygen Flow Rate (L/min) Fraction of Inspired Oxygen (FIO2) 50 50 50 02/24/22 18:31 Temperature Temperature Source Pulse Rate 68 Respiratory Rate 15 Respiratory Effort Respiratory Depth Respiratory Pattern Blood Pressure Blood Pressure Mean Pulse Ox 98 Oxygen Delivery Method Oxygen Flow Rate (L/min) Fraction of Inspired Oxygen (FIO2) 50 Positive well nourished, well developed and obese General Appearance ED: well developed Nutritional Appearance: obese HEENT Reports normocephalic and moist mucous membranes HEENT Narrative: Patient has right periorbital per kilo ecchymosis. Eyes Eyes Narrative: Pupils are 2 mm bilaterally. Extraocular motions are unable to be checked. There is a very minimal corneal reflex. Neck no lymphadenopathy, supple and no JVD Resp clear to auscultation bilaterally Resp Narrative: Shallow respirations Cardio no murmurs Rhythm: abnormal rhythm irregularly irregular GI normal to inspection, nondistended, normoactive bowel sounds and non-tender Palpation: soft Back/Spine no CVA tenderness and normal ROM Extremity normal to inspection General Extremety ED: Negative for edema General Extremity: Negative for edema Neuro Neuro Narrative: Patient is minimally responsive to sternal rub but does pull away his foot with painful stimuli Bird Coma Scale: document GCS findings (7) None Localizes to Pain None 7 Sensorium / Orientation: stuporous Skin no rashes or lesions noted and no wounds MDM MDM MDM Narrative Medical decision making narrative: I discussed with the family occluding son and at the bedside that due to his GCS he should be intubated. They do not wish him to be intubated. They do not know yet about palliative care or hospice. Placed him on BiPAP. There was difficulties obtaining the blood gas but his pH is 7.2 with a PCO2 of 133.9 and PO2 of 139.8. Bicarb of 56.7. Interpretation of the chest x-ray is no acute process. CT of the brain was negative. Basic blood work showed a hemoglobin of 10.1 lactic acid 0.6 TSH 0.94. Troponin is 14. The patient had a Cruz catheter placed was noted to be 93 degrees. Bear hugger was started. Despite BiPAP the patient's continues to breathe slowly and with shallow breaths. I again informed the family that this is not can to be effective and blowing off the CO2 but they again reiterate his wishes not to be intubated. I spoke with our hospitalist Dr. Estrada. She also spoke with the family were going to be admitting under palliative circumstances. Should the patient succumb tonight we will not code him. We will bring hospice in tomorrow if he survives. Lab Data Attestation: I reviewed the patient's lab results. Labs: Laboratory Results - last 24 hr 02/24/22 02/24/22 02/24/22 16:07 16:20 16:20 WBC 9.6 RBC 3.38 L Hgb 10.1 L Hct 35.5 L MCV 105.0 H MCH 29.9 MCHC 28.5 L RDW Std Deviation 56.3 H RDW Coeff of Earle 14.4 Plt Count 199 MPV 9.4 Immature Gran % (Auto) 1.000 H Neut % (Auto) 83.8 H Lymph % (Auto) 6.7 L [place] % (Auto) 7.0 Eos % (Auto) 1.2 Baso % (Auto) 0.3 Absolute Neuts (auto) 8.1 H Absolute Lymphs (auto) 0.65 L Nucleated RBC % 0 PT 13.1 INR 1.0 APTT 29.4 Sodium Potassium Chloride Carbon Dioxide Anion Gap BUN Creatinine Estim Creat Clear Calc Est GFR (MDRD) Af Amer Est GFR (MDRD) Non-Af BUN/Creatinine Ratio Glucose Lactic Acid Calcium Magnesium Total Bilirubin AST ALT Alkaline Phosphatase Troponin I High Sens B-Natriuretic Peptide Total Protein Albumin Globulin Albumin/Globulin Ratio TSH Urine Color Urine Clarity Urine pH Ur Specific Outlook Urine Protein Urine Glucose (UA) Urine Ketones Urine Occult Blood Urine Nitrite Urine Bilirubin Urine Urobilinogen Ur Leukocyte Esterase Urine RBC Urine WBC Ur Squamous Epith Cells Urine Bacteria Urine Mucus POC Glucose 118 H 02/24/22 02/24/22 02/24/22 16:20 16:20 16:45 WBC RBC Hgb Hct MCV MCH MCHC RDW Std Deviation RDW Coeff of Earle Plt Count MPV Immature Gran % (Auto) Neut % (Auto) Lymph % (Auto) [place] % (Auto) Eos % (Auto) Baso % (Auto) Absolute Neuts (auto) Absolute Lymphs (auto) Nucleated RBC % PT INR APTT Sodium 141 Potassium 3.3 L Chloride 85 L Carbon Dioxide > 45.0 H* Anion Gap TNP BUN 23 H Creatinine 0.64 L Estim Creat Clear Calc 58.94 Est GFR (MDRD) Af Amer 159 Est GFR (MDRD) Non-Af 132 BUN/Creatinine Ratio 36.1 H Glucose 124 H Lactic Acid 0.6 Calcium 9.0 Magnesium 2.3 Total Bilirubin 0.30 AST 13 L ALT 28 Alkaline Phosphatase 73 Troponin I High Sens 14 B-Natriuretic Peptide Total Protein 7.2 Albumin 2.9 L Globulin 4.3 H Albumin/Globulin Ratio 0.7 L TSH 0.94 Urine Color Urine Clarity Urine pH Ur Specific Outlook Urine Protein Urine Glucose (UA) Urine Ketones Urine Occult Blood Urine Nitrite Urine Bilirubin Urine Urobilinogen Ur Leukocyte Esterase Urine RBC Urine WBC Ur Squamous Epith Cells Urine Bacteria Urine Mucus POC Glucose 02/24/22 02/24/22 16:45 17:10 WBC RBC Hgb Hct MCV MCH MCHC RDW Std Deviation RDW Coeff of Earle Plt Count MPV Immature Gran % (Auto) Neut % (Auto) Lymph % (Auto) [place] % (Auto) Eos % (Auto) Baso % (Auto) Absolute Neuts (auto) Absolute Lymphs (auto) Nucleated RBC % PT INR APTT Sodium Potassium Chloride Carbon Dioxide Anion Gap BUN Creatinine Estim Creat Clear Calc Est GFR (MDRD) Af Amer Est GFR (MDRD) Non-Af BUN/Creatinine Ratio Glucose Lactic Acid Calcium Magnesium Total Bilirubin AST ALT Alkaline Phosphatase Troponin I High Sens B-Natriuretic Peptide 77.9 Total Protein Albumin Globulin Albumin/Globulin Ratio TSH Urine Color STRAW Urine Clarity Clear Urine pH 5.0 Ur Specific Outlook 1.020 Urine Protein Negative Urine Glucose (UA) Normal Urine Ketones Negative Urine Occult Blood Negative Urine Nitrite Negative Urine Bilirubin Negative Urine Urobilinogen Normal Ur Leukocyte Esterase Negative Urine RBC 0 SEEN Urine WBC 0 SEEN Ur Squamous Epith Cells 0 SEEN Urine Bacteria RARE Urine Mucus 0 SEEN POC Glucose Radiography Diagnostic Testing: Clinical Impression(s) from Imaging Studies Brain CT 02/24/22 16:32 IMPRESSION: There are no acute intracranial findings. There is no underlying fracture. Soft tissue swelling of the right periorbital region. Electronically Signed: Helio Kirby MD at 17:39 EDT , Chest X-Ray 02/24/22 17:28 IMPRESSION: There are no acute findings. Electronically Signed: Helio Kirby MD at 17:41 EDT , EKG Initial EKG: Attestation: I personally reviewed and interpreted this EKG as follows: Comments: Sinus rhythm with first-degree AV block with a ventricular rate of 73 bpm Critical Care Time Critical Care Time: Yes Critical care time (excluding procedures): 30-74 minutes (35), Including time spent:, Discussing w/Patient &/or Family/Hospice Manager, Discussing w/Consultants, Arranging Admission or Transfer and Performing Direct Patient Care at Bedside Discharge Plan Dx/Rx/DC Orders Clinical Impression: CO2 narcosis, Obesity (BMI 30-39.9), Diastolic CHF, chronic, Sleep apnea, Acute hypercapnic respiratory failure, Hypothermia Disposition Disposition: Acute Care Hospital [facility]
[2022-02-24 17:01] LABS: Partial Thromboplast Time 29.4 Seconds (24.1-36.2); Prothrombin Time (Protime)PT. 13.1 SECONDS (11.7-14.9)
[2022-02-24 17:09] LABS: BNP,B-Type NATRIURETIC PEPTIDE 77.9 pg/mL (0-100)
[2022-02-24 17:15] LABS: Lactic Acid 0.6 mmol/L (0.4-1.9)
--- NOTE | 2022-02-24 17:28 | RAD_ITS ---
STUDY: XR Chest 1 View 02/24/2022 5:24 PM REASON FOR EXAM: Male, 72 years old. CHEST PAIN ams COMPARISON: 02/02/2022 TECHNIQUE: XR Chest 1 View FINDINGS: There is no demonstrated pleural abnormality. Stable possible scarring of the left upper lobe. Right lower lobe atelectasis. Normal heart size. Normal mediastinum. Normal earlene. Prominent appearing increased interstitial lung markings. Normal visualized pulmonary arteries. There is atherosclerotic calcification of the aortic arch with tortuosity. There are diffuse degenerative changes of the visualized thoracic spine. There is degenerative osteoarthritis of the bilateral shoulders. There is no demonstrated abnormality of the visualized soft tissue structures of the upper abdomen. RAD/Chest 1 View (Portable) IMPRESSION: There are no acute findings. Electronically Signed: Helio Kirby MD at 17:41 EDT ,
[2022-02-24 17:29] LABS: ALB/GLOB Ratio 0.7 RATIO (0.9-2.4); AST(SGOT) 13 U/L (15-37); Alanine Aminotransfer ALT/SGPT 28 U/L (16-61); Albumin, Serum 2.9 g/dL (3.2-5.0); Alkaline Phosphatase 73 U/L (45-117); BUN 23 mg/dL (7-18); BUN/Creat Ratio 36.1 RATIO (10-20); Chloride 85 mmol/L (98-107); Creatinine, Serum 0.64 mg/dL (0.70-1.30); EST Glomerular Filtration Rate 132 mL/min (>60); Est Glom Filt Rate - Afr Amer 159 mL/min (>60); Estimated Creatinine Clearance 58.94 ml/min; Globulin 4.3 g/dL (2.2-4.2); Glucose 124 mg/dL (74-106); Potassium 3.3 mmol/L (3.5-5.1); Protein, Total 7.2 g/dL (6.4-8.2); Sodium Level 141 mmol/L (136-145); Troponin-I HS 14 pg/mL (3.0-78.0)
[2022-02-24 17:34] LABS: Carbon Dioxide > 45.0 mmol/L (21.0-32.0)
[2022-02-24 18:55] LABS: Mucous, Urine 0 SEEN /hpf (<or=2+); Red Blood Cells-Urine 0 SEEN /hpf (0-5); Squamous Epithelial Cells - UA 0 SEEN /hpf (0-5); White Blood Cells 0 SEEN /hpf (0-5)
[2022-02-24 18:57] LABS: Glucose, Dipstick Normal (Normal); Ketone-Dipstick Negative (Negative); Leukocyte Esterase-Dipstick Negative /ul (Negative); Nitrite-Dipstick Negative (Negative); Occult Blood-Urine Negative /ul (Negative); Protein-Dipstick Negative (Negative); Urine Bilirubin Dipstick Negative (Negative); Urine Clarity Clear (Clear); Urine Urobilinogen Normal (Normal)
[2022-02-24 19:16] LABS: Color, Urine STRAW (Yellow)
[2022-02-24 19:18] LABS: Bacteria RARE /hpf (None Seen)
[2022-02-24 19:19] LABS: Magnesium 2.3 mg/dL (1.6-2.6); Thyroid Stim Hormone (TSH) 0.94 uIU/mL (0.358-3.74)
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
--- NOTE | 2022-02-24 20:43 | CM.ED ---
Addendum entered by Lucero Miller 02/24/22 21:27: ROBBY called Hospice and after being on hold for 31 minutes SW called back and spoke to Hospice dimensional inspectorscallop shucker, Dorene. Dorene said that the admission staff left early on family emergency but they were supposed to be able to take referrals. ROBBY made referral to Dorene at Hospice. ROBBY faxed referral documentation to Hospice [phone] and confirmation received. Hospice will call or son in the morning. SW provided hospice list to family. ROBBY advised that Hospice will call in the morning to schedule appointment. Family verbalized understanding. Emotional support provided. MD Cobb updated. Lucero DOE Original Note: ROBBY Note Referral Source: MD Cobb Referral Reason: Hospice SW met with patient's , Isela and son, Hany ([phone]). SW provided emotional support to patient's family. MD Finn met with patient and this communications writer and MD discussed hospice. Patient's and son stated they would like patient to be admitted but were open to this communications writer making referral to [facility] mary so [facility] could meet with them on 02/25/22. Plan: Hospice Referral Lucero HERNANDEZ
[2022-02-24] MEDS: Furosemide 40 MG/4 ML Vial IV (22:59)
[2022-02-24] MEDS: 0.9% Saline Lock 10 ML Syringe IV (23:00)
[2022-02-24] MEDS: Ipratropium/Albuterol Sulfate 3 ML AMPUL.NEB INHALATION (23:05)
[2022-02-25] VITALS (18 sets, daily range): BP systolic 114–153; BP diastolic 62–86; PULSE 85–99; RESP 8–32; TEMP 36.2–37.2; O2SAT 94–98
[2022-02-25] MEDS: Potassium Chloride 10mEq/100mL 10 MEQ/100 ML IV.SOLN. 100 MEQ IV BOLUS ×8 (00:54→12:17)
[2022-02-25 01:06] LABS: Absolute Lymphocyte Count 0.29 X10^3/uL (0.83-4.51); Absolute Neutrophil Count 8.6 X10^3/uL (2.0-7.7); Basophil# 0.01 X10^3/uL; Basophil% 0.1 % (0-1); Eosinophil# 0.08 X10^3/uL; Eosinophils% 0.8 % (0-5); Hematocrit 33.6 % (40-54); Hemoglobin 9.5 g/dL (13.0-16.5); Lymphocyte # 0.29 X10^3/ul (0.83-4.51); Lymphocyte % 3.1 % (19-41); Mean Corp Hgb Conc 28.3 g/dL (32-36); Mean Corpuscular Hgb 29.2 pg (27.0-32.0); Mean Corpuscular Volume 103.4 fL (80-94); Mean Platelet Vol. 9.4 fl (6.2-12.0); Monocyte# 0.45 X10^3/uL; Monocyte% 4.8 % (0-10); NRBC Flagged by Analyzer 0.2 % (0-5); Neutrophil # 8.55 X10^3/uL (2.7-7.7); Neutrophil % 90.7 % (47-70); POSITIVE DIFFERENTIAL YES; Platelet Count 169 K/mm3 (150-450); RBC Distribution Width CV 14.3 % (11.6-14.6); RBC Distribution Width SD 54.2 fl (35.1-43.9); Red Blood Count 3.25 M/mm3 (4.6-6.2); White Blood Count 9.4 K/mm3 (4.4-11.0)
[2022-02-25 01:09] LABS: Differential Indicated SCAN CRITERIA MET
[2022-02-25 01:24] LABS: ALB/GLOB Ratio 0.7 RATIO (0.9-2.4); AST(SGOT) 15 U/L (15-37); Alanine Aminotransfer ALT/SGPT 27 U/L (16-61); Albumin, Serum 2.7 g/dL (3.2-5.0); Alkaline Phosphatase 64 U/L (45-117); BUN 20 mg/dL (7-18); BUN/Creat Ratio 42.6 RATIO (10-20); Calcium,Total 8.8 mg/dL (8.5-10.1); Carbon Dioxide > 45.0 mmol/L (21.0-32.0); Chloride 83 mmol/L (98-107); Creatinine, Serum 0.47 mg/dL (0.70-1.30); EST Glomerular Filtration Rate 187 mL/min (>60); Est Glom Filt Rate - Afr Amer 226 mL/min (>60); Estimated Creatinine Clearance 58.94 ml/min; Globulin 3.7 g/dL (2.2-4.2); Glucose 128 mg/dL (74-106); Magnesium 1.9 mg/dL (1.6-2.6); Potassium 3.2 mmol/L (3.5-5.1); Protein, Total 6.4 g/dL (6.4-8.2); Sodium Level 143 mmol/L (136-145)
[2022-02-25] MEDS: Ipratropium/Albuterol Sulfate 3 ML AMPUL.NEB INHALATION ×5 (01:45→19:12)
[2022-02-25 01:59] LABS: Anisocytosis 1+; Differential Comment SCANNED; Macrocytosis 1+
[2022-02-25 02:57] LABS: Blood Gas Specimen Type VEN; O2 Delivery Device Bi Pap
[2022-02-25 02:58] LABS: EPAP 8; FI02 40; IPAP 16
[2022-02-25 02:59] LABS: VBG PO2 120 mmHg (25-40); VBG pCO2 62.5 mmHg (41-51); VBG pH 7.58 (7.32-7.42)
[2022-02-25 03:00] LABS: VBG BASE EXCESS > 30 mmol/L (-1.0-3.5); VBG Bicarbonate 59 mmol/L (22-26); VBG SO2 99 % (50-70); VBG TCO2 > 50 mmol/L (23-33)
[2022-02-25 06:26] LABS: Blood Gas Specimen Type VEN; VBG BASE EXCESS 29 mmol/L (-1.0-3.5); VBG Bicarbonate 57 mmol/L (22-26); VBG PO2 140 mmHg (25-40); VBG SO2 98 % (50-70); VBG pCO2 133.9 mmHg (41-51); VBG pH 7.24 (7.32-7.42)
[2022-02-25] MEDS: Furosemide 40 MG/4 ML Vial IV ×3 (06:44→21:30)
[2022-02-25] MEDS: 0.9% Saline Lock 10 ML Syringe IV ×2 (06:45→21:30)
--- NOTE | 2022-02-25 07:34 | PN.HOSP_ITS ---
Subjective Subjective Still on BiPAP. Agitated transiently. Objective Data Objective Data Vital Signs: Vital Signs Temp Pulse Resp BP Pulse Ox O2 Del Method O2 Flow Rate 36.6 C 87 16 114/62 97 Bi-pap 8 02/25/22 02:30 02/25/22 05:15 02/25/22 05:15 02/25/22 02:30 02/25/22 05:15 02/25/22 03:12 02/24/22 16:27 FiO2 50 02/25/22 05:15 Oxygen Flow Rate (L/min) 8 Oxygen Delivery Method Bi-pap Weight: 133.5 kg Body Mass Index (BMI) 48.9 Intake & Output: Intake and Output for Last 24 Hours 02/23/22 02/24/22 02/25/22 23:59 23:59 23:59 Intake Total 300 / 300 Output Total 1250 / 1250 Balance -950 / -950 Lab / Micro Data Result Diagrams: 02/25/22 00:55 02/25/22 07:30 Labs: Laboratory Results - last 24 hr 02/24/22 16:07: POC Glucose 118 H 02/24/22 16:20: WBC 9.6, RBC 3.38 L, Hgb 10.1 L, Hct 35.5 L, MCV 105.0 H, MCH 29.9, MCHC 28.5 L, RDW Std Deviation 56.3 H, RDW Coeff of Earle 14.4, Plt Count 199, MPV 9.4, Immature Gran % (Auto) 1.000 H, Neut % (Auto) 83.8 H, Lymph % (Auto) 6.7 L, Josephine % (Auto) 7.0, Eos % (Auto) 1.2, Baso % (Auto) 0.3, Absolute Neuts (auto) 8.1 H, Absolute Lymphs (auto) 0.65 L, Nucleated RBC % 0 02/24/22 16:20: PT 13.1, INR 1.0, APTT 29.4 02/24/22 16:20: Sodium 141, Potassium 3.3 L, Chloride 85 L, Carbon Dioxide > 45.0 H*, Anion Gap TNP, BUN 23 H, Creatinine 0.64 L, Estim Creat Clear Calc 58.94, Est GFR (MDRD) Af Amer 159, Est GFR (MDRD) Non-Af 132, BUN/Creatinine Ratio 36.1 H, Glucose 124 H, Calcium 9.0, Total Bilirubin 0.30, AST 13 L, ALT 28, Alkaline Phosphatase 73, Troponin I High Sens 14, Total Protein 7.2, Albumin 2.9 L, Globulin 4.3 H, Albumin/Globulin Ratio 0.7 L 02/24/22 16:20: Magnesium 2.3, TSH 0.94 02/24/22 16:45: Lactic Acid 0.6 02/24/22 16:45: B-Natriuretic Peptide 77.9 02/24/22 17:10: Urine Color STRAW, Urine Clarity Clear, Urine pH 5.0, Ur Specific [place] 1.020, Urine Protein Negative, Urine Glucose (UA) Normal, Urine Ketones Negative, Urine Occult Blood Negative, Urine Nitrite Negative, Urine Bilirubin Negative, Urine Urobilinogen Normal, Ur Leukocyte Esterase Negative, Urine RBC 0 SEEN, Urine WBC 0 SEEN, Ur Squamous Epith Cells 0 SEEN, Urine Bacteria RARE, Urine Mucus 0 SEEN 02/25/22 00:55: WBC 9.4, RBC 3.25 L, Hgb 9.5 L, Hct 33.6 L, MCV 103.4 H, MCH 29.2, MCHC 28.3 L, RDW Std Deviation 54.2 H, RDW Coeff of Earle 14.3, Plt Count 169, MPV 9.4, Immature Gran % (Auto) 0.500, Neut % (Auto) 90.7 H, Lymph % (Auto) 3.1 L, Josephine % (Auto) 4.8, Eos % (Auto) 0.8, Baso % (Auto) 0.1, Absolute Neuts (auto) 8.6 H, Absolute Lymphs (auto) 0.29 L, Nucleated RBC % 0.2, Differential Comment SCANNED, Anisocytosis 1+, Macrocytosis 1+ 02/25/22 00:55: Sodium 143, Potassium 3.2 L, Chloride 83 L, Carbon Dioxide > 45.0 H*, Anion Gap TNP, BUN 20 H, Creatinine 0.47 L, Estim Creat Clear Calc 58.94, Est GFR (MDRD) Af Amer 226, Est GFR (MDRD) Non-Af 187, BUN/Creatinine Ratio 42.6 H, Glucose 128 H, Calcium 8.8, Magnesium 1.9, Total Bilirubin 0.50, AST 15, ALT 27, Alkaline Phosphatase 64, Total Protein 6.4, Albumin 2.7 L, Globulin 3.7, Albumin/Globulin Ratio 0.7 L Micro: Microbiology 02/25/22 00:00 Nasal Secretion SARS-CoV-2 Antigen (Rapid) - Final ABG Data ABG results: ABG 02/24/22 02/25/22 18:54 01:00 Specimen Type VIRIDIANA VIRIDIANA O2 % 40 VBG pH 7.24 L 7.58 H VBG pO2 140 H 120 H VBG HCO3 57 H 59 H VBG Total CO2 > 50 H VBG O2 Sat (Calc) 98 H 99 H VBG Base Excess 29 H > 30 H POC Mix VBG pCO2 Pt Tmp 133.9 H* 62.5 H O2 Delivery Device Bi Pap Inspiratory Time 1.10 EPAP 8 IPAP 16 Crit Call To/Read Back Yes Yes Blood Gas Notified Whom christi ARMIJO MD Blood Gas Notified Time 18:56:52 0105 Radiography Diagnostic Testing: Radiology Impression Brain CT 02/24/22 16:32 IMPRESSION: There are no acute intracranial findings. There is no underlying fracture. Soft tissue swelling of the right periorbital region. Electronically Signed: Helio Kirby MD at 17:39 EDT , Chest X-Ray 02/24/22 17:28 IMPRESSION: There are no acute findings. Electronically Signed: Helio Kirby MD at 17:41 EDT , Physical Exam Const Constitutional Narrative: unresponsive. Resp normal respiratory effort, no retractions and no use of accessory muscles Cardio regular rate, regular rhythm, S1 normal heart sound and S2 normal heart sound GI normal to inspection, nondistended, normoactive bowel sounds, soft to palpation, non-tender and non-distended Assessment & Plan Assessment/Plan (1) Acute hypercapnic respiratory failure: PLAN: Plan 1. Acute on chronic respiratory failure likely secondary to hypercapnia from acute COPD exacerbation Patient typically is on 8 L of oxygen at home and uses CPAP Presents with lethargy, GCS 7, on BiPAP HCO3>45, BN peptide 77.9 CODE STATUS is DNR CCA, confirmed with family Family wants to try to see if patient would wake up with a BiPAP; they are agreeable that should he be worse, he will be transitioned to hospice Will admit to MedSurg, breathing treatments every 4h, IV Solu-Medrol, IV Lasix Pulmonology consult if patient should improve 2. Hypokalemia, potassium K 3.3, will replace, check Mg level Repeat level in am 3. Recent urethral bleeding, history of BPH ,status post continue bladder irrigation in [facility], resolved Home finasteride and Flomax on hold for now on account of n.p.o. status 4. YENI on CPAP 5. Anemia, hemoglobin appears stable compared to previous, history of recent bleeding Home aspirin on hold on account of n.p.o. status 6. Chronic atrial fibrillation, currently in normal sinus rhythm, with first- degree AV block, QTC is 451 Hold metoprolol for now as patient is lethargic and n.p.o. Continue to monitor vitals closely, may need metoprolol IV as needed 7. DVT prophylaxis?Lovenox subcu 6. CODE STATUS DNR CCA, no intubation -confirmed that family Hospice consult pending. DW pt's and son at bedside. Charges/Coding Visit Charges Inpatient E&M: 01861 Subs Hosp L2
[2022-02-25 07:45] LABS: VBG TCO2 > 50 mmol/L (23-33)
--- NOTE | 2022-02-25 08:19 | EX.PCM.CONCC ---
Assessment & Plan Assessment/Plan (1) Acute on chronic respiratory failure with hypoxia and hypercapnia: PLAN: Plan RECOMMENDATIONS: 1. Continue BiPAP to as needed and with sleep 2. Increase Lasix at every 8 hours. Dose Diamox daily once potassium corrected 3. Continue scheduled bronchodilators. Okay to continue steroids for now 4. Encourage incentive spirometer use and mobilize patient as tolerated. 5. Continue appropriate DVT prophylaxis. 6. Await results of hospice discussion 7. Agree with DNR/DNI. Hold on ICU transfer given CODE STATUS and hospice discussions IMPRESSIONS: 1. Acute on chronic combined respiratory failure The patient has known end-stage COPD and chronic hypoxemic respiratory failure, with what appears to be a baseline oxygen requirement of 5 to 6 L/min. The patient is already on maximum triple therapy inhaler regimen at his baseline. He has been compliant, per report, with the aforementioned medications. His symptoms, radiographic findings and response to Lasix suggest the possible implication of heart failure with preserved ejection fraction. Diuresis will be increased. Low clinical suspicion for COPD exacerbation. Okay to continue steroids for now. Anticipate patient will require continued diuresis if remains aggressive. Potential discharge once patient can ambulate on 6 L or less. 2. Obstructive sleep apnea The patient regularly utilizes nocturnal AutoPap therapy, for which he has been compliant with its use according to his last pulmonary office visit note. However, given CO2 retention, discharged on noninvasive ventilator such as astral or trilogy may be necessary. Will reassess as patient gets closer to discharge. 3. Morbid obesity/anemia/BPH/GERD/paroxysmal atrial fibrillation Complicates care, management, recovery and prognosis. Continue home medications as indicated. This note was generated with [employer] dictation software. It may contain incorrect words, spelling, and punctuation that were not noted in checking the note before signing. HPI Consult Data Date of Consult: 02/25/22 HPI Narrative Reason for Consultation: Respiratory failure HPI Narrative: FARRAH ANDREWS is a 72 M, with past medical history listed below and well-known to me from the outpatient office, who presents to [facility] on 02/24/2022 secondary to trouble with breathing. Patient has a history of both CHF and COPD and is chronically on 6 L nasal cannula. Patient was recently hospitalized and discharged 2 weeks ago from [facility]. Patient has had some worsening shortness of breath, but no fevers or change in cough is been reported. Patient has been more lethargic and had difficulty eating lunch on the day of presentation. Patient states that he had urinary incontinence in the chair, so they brought him in for an evaluation. Patient has been seen multiple times in the last 2 months for similar type presentations. In the ER, patient was afebrile, but tachypneic at 29 breaths/min saturating 88% on 6 L. Patient was increased to 8 L/min. Patient had had some marginal blood pressures at 104/60, but improved following BiPAP therapy. Laboratory data showed a white blood cell count of 9.6, hemoglobin of 10.1 and a platelet of 199. Coagulation studies were within normal limits. Chemistries showed normal renal function with a potassium of 3.3 and slightly elevated glucose of 124. Liver enzymes were unremarkable. BNP was 78 and UA was unremarkable. CT of the head showed no acute findings. Chest x-ray was relatively unremarkable. On my evaluation, patient was unable to recognize me, which is very different from baseline. Patient had multiple bruises including his right eye, right and left shoulders and right chest. Patient's son was at the bedside and provided most of the information. Patient reportedly was discharged from [facility] with instructions for BiPAP, PT/OT and home nursing. To his knowledge, none of those had been initiated. Patient was doing okay for the first week and a half, but recently started to have more shortness of breath and had fallen into the door frame resulting in the bruising. Patient was not able to provide a review of systems secondary to mentation. [facility] Medical History Acute on chronic respiratory failure with hypoxia and hypercapnia Anemia Asthma Atrial fibrillation Chronic respiratory failure Congestive heart failure (CHF) COPD (chronic obstructive pulmonary disease) CPAP (continuous positive airway pressure) dependence Diastolic CHF, chronic Edema Emphysema, unspecified Former smoker History of atrial fibrillation Injury of head and neck Loose, teeth Morbid obesity due to excess calories Nonrheumatic aortic (valve) insufficiency Obesity (BMI 30-39.9) On home oxygen therapy Positive occult stool blood test Restless legs Secondary pulmonary hypertension Secondary pulmonary hypertension Sleep apnea Stage 4 very severe COPD by GOLD classification Stage 4 very severe COPD by GOLD classification Wears glasses Home Medications finasteride 5 mg tablet 5 mg PO DAILY prostate 05/05/20 [History Last Taken 09/04/21] ascorbic acid (vitamin C) 500 mg tablet 1,000 mg PO DAILY vitamin 07/04/20 [History Last Taken 09/05/21] tamsulosin 0.4 mg capsule 0.8 mg PO QHS prostate 07/04/20 [History Last Taken 09/04/21] ferrous sulfate 325 mg (65 mg iron) tablet 325 mg PO DAILY supplement 10/09/20 [History Last Taken 09/05/21] aspirin 81 mg tablet,delayed release (Adult Low Dose Aspirin) 81 mg PO DAILY heart health 10/24/20 [History Last Taken 09/04/21] omeprazole 20 mg capsule,delayed release 20 mg PO DAILY GERD 07/15/21 [History Last Taken 09/04/21] albuterol sulfate 90 mcg/actuation aerosol inhaler 2 puff inhalation Q6H PRN shortness of breath or wheezing #18 grams 08/08/21 [Rx Last Taken 09/05/21] tiotropium bromide 2.5 mcg/actuation mist for inhalation (Spiriva Respimat) 2 inh inhalation DAILY sob #3 ea 10/21/21 [Rx Last Taken Unknown] budesonide-formoterol HFA 160 mcg-4.5 mcg/actuation aerosol inhaler (Symbicort) 2 puff inhalation BID breathing 01/24/22 [History Last Taken Unknown] furosemide 40 mg tablet (Lasix) 40 mg PO BID 30 days #60 tabs 01/29/22 [Rx Last Taken Unknown] calcium 400 mg-vit D3 83.3 mcg-magnesium 166.7 mg-zinc 16.7 mg capsule 1 cap PO DAILY 02/20/22 [History Last Taken Unknown] cholecalciferol (vitamin D3) 25 mcg (1,000 unit) tablet 25 mcg PO DAILY 02/20/22 [History Last Taken Unknown] ipratropium 0.5 mg-albuterol 3 mg (2.5 mg base)/3 mL nebulization soln 3 ml inhalation Q6H PRN Shortness Of Breath 02/20/22 [History Last Taken Unknown] metoprolol tartrate 25 mg tablet 25 mg PO BID 02/20/22 [History Last Taken Unknown] potassium chloride 20 mEq tablet,extended release(part/cryst) (Klor-Con M) 20 meq PO DAILYCM 02/20/22 [History Last Taken Unknown] bumetanide 1 mg tablet 1 mg PO BID copd 02/24/22 [History Last Taken Unknown] zaleplon 5 mg capsule 1 cap PO QHS 02/24/22 [History Last Taken Unknown] Allergy/AdvReac Type Severity Reaction Status Date / Time No Known Allergies Allergy Verified 02/24/22 16:10 Family History Mother Cancer stomach Father Heart disease Brother Cancer Surgical History History of surgery of head Hx of cataract surgery Hx of colonoscopy Social History Smoking Status: Former smoker pack-years: 60 Tobacco: How many years used: 30 alcohol intake: never substance use type: does not use caffeine: Yes Type: coffee Number of servings: 4 what type of physical activity do you participate in: none frequency: does not exercise ROS Review of Systems ROS Unobtainable: due to mental status Physical Exam Const Constitutional Narrative: RASS -1. Morbidly obese. General Appearance: in distress Positive for moderate and respiratory and lethargic HEENT normocephalic Eyes Eyes Narrative: Significant bruising of the right eye. No laceration appreciated. Neck full ROM Chest Chest: abnormal inspection of the chest increased A-P diameter and symmetrical chest wall rise Resp Effort and Inspection: tachypneic and prolonged expiratory phase Auscultation: rales and diminished lung sounds; Negative for rhonchi or wheezes Cardio S1 normal heart sound, S2 normal heart sound, no murmurs, no rub and no gallops Rhythm: abnormal rhythm irregularly irregular GI normal to inspection, nondistended, normoactive bowel sounds GI Narrative: Exam somewhat limited given body habitus Extremity General Extremity: clubbing and edema Skin Skin Narrative: Multiple bruises noted in various stages of healing. Neuro moves all extremities and no focal motor deficits Psych Activity / Motor Behavior: restless Medical Records Data Attestation: I reviewed the patient's medical records Lab / Micro Data Attestation: I reviewed the patient's lab results. Result Diagrams: 02/25/22 00:55 02/25/22 00:55 Labs: Laboratory Results - last 24 hr 02/24/22 16:07: POC Glucose 118 H 02/24/22 16:20: WBC 9.6, RBC 3.38 L, Hgb 10.1 L, Hct 35.5 L, MCV 105.0 H, MCH 29.9, MCHC 28.5 L, RDW Std Deviation 56.3 H, RDW Coeff of Earle 14.4, Plt Count 199, MPV 9.4, Immature Gran % (Auto) 1.000 H, Neut % (Auto) 83.8 H, Lymph % (Auto) 6.7 L, [place] % (Auto) 7.0, Eos % (Auto) 1.2, Baso % (Auto) 0.3, Absolute Neuts (auto) 8.1 H, Absolute Lymphs (auto) 0.65 L, Nucleated RBC % 0 02/24/22 16:20: PT 13.1, INR 1.0, APTT 29.4 02/24/22 16:20: Sodium 141, Potassium 3.3 L, Chloride 85 L, Carbon Dioxide > 45.0 H*, Anion Gap TNP, BUN 23 H, Creatinine 0.64 L, Estim Creat Clear Calc 58.94, Est GFR (MDRD) Af Amer 159, Est GFR (MDRD) Non-Af 132, BUN/Creatinine Ratio 36.1 H, Glucose 124 H, Calcium 9.0, Total Bilirubin 0.30, AST 13 L, ALT 28, Alkaline Phosphatase 73, Troponin I High Sens 14, Total Protein 7.2, Albumin 2.9 L, Globulin 4.3 H, Albumin/Globulin Ratio 0.7 L 02/24/22 16:20: Magnesium 2.3, TSH 0.94 02/24/22 16:45: Lactic Acid 0.6 02/24/22 16:45: B-Natriuretic Peptide 77.9 02/24/22 17:10: Urine Color STRAW, Urine Clarity Clear, Urine pH 5.0, Ur Specific [place] 1.020, Urine Protein Negative, Urine Glucose (UA) Normal, Urine Ketones Negative, Urine Occult Blood Negative, Urine Nitrite Negative, Urine Bilirubin Negative, Urine Urobilinogen Normal, Ur Leukocyte Esterase Negative, Urine RBC 0 SEEN, Urine WBC 0 SEEN, Ur Squamous Epith Cells 0 SEEN, Urine Bacteria RARE, Urine Mucus 0 SEEN 02/25/22 00:55: WBC 9.4, RBC 3.25 L, Hgb 9.5 L, Hct 33.6 L, MCV 103.4 H, MCH 29.2, MCHC 28.3 L, RDW Std Deviation 54.2 H, RDW Coeff of Earle 14.3, Plt Count 169, MPV 9.4, Immature Gran % (Auto) 0.500, Neut % (Auto) 90.7 H, Lymph % (Auto) 3.1 L, [place] % (Auto) 4.8, Eos % (Auto) 0.8, Baso % (Auto) 0.1, Absolute Neuts (auto) 8.6 H, Absolute Lymphs (auto) 0.29 L, Nucleated RBC % 0.2, Differential Comment SCANNED, Anisocytosis 1+, Macrocytosis 1+ 02/25/22 00:55: Sodium 143, Potassium 3.2 L, Chloride 83 L, Carbon Dioxide > 45.0 H*, Anion Gap TNP, BUN 20 H, Creatinine 0.47 L, Estim Creat Clear Calc 58.94, Est GFR (MDRD) Af Amer 226, Est GFR (MDRD) Non-Af 187, BUN/Creatinine Ratio 42.6 H, Glucose 128 H, Calcium 8.8, Magnesium 1.9, Total Bilirubin 0.50, AST 15, ALT 27, Alkaline Phosphatase 64, Total Protein 6.4, Albumin 2.7 L, Globulin 3.7, Albumin/Globulin Ratio 0.7 L Micro: Microbiology 02/25/22 00:00 Nasal Secretion SARS-CoV-2 Antigen (Rapid) - Final ABG Data ABG results: ABG 02/24/22 02/25/22 18:54 01:00 Specimen Type VIRIDIANA VIRIDIANA O2 % 40 VBG pH 7.24 L 7.58 H VBG pO2 140 H 120 H VBG HCO3 57 H 59 H VBG Total CO2 > 50 H > 50 H VBG O2 Sat (Calc) 98 H 99 H VBG Base Excess 29 H > 30 H POC Mix VBG pCO2 Pt Tmp 133.9 H* 62.5 H O2 Delivery Device Bi Pap Inspiratory Time 1.10 EPAP 8 IPAP 16 Crit Call To/Read Back Yes Yes Blood Gas Notified Whom christi ARMIJO MD Blood Gas Notified Time 18:56:52 0105 Attestation: I personally reviewed and interpreted this ABG as follows: (Poorly compensated respiratory acidosis with increased AA gradient) Radiology Impression Brain CT 02/24/22 16:32 IMPRESSION: There are no acute intracranial findings. There is no underlying fracture. Soft tissue swelling of the right periorbital region. Electronically Signed: Helio Kirby MD at 17:39 EDT , Chest X-Ray 02/24/22 17:28 IMPRESSION: There are no acute findings. Electronically Signed: Helio Kirby MD at 17:41 EDT , Charges/Coding Visit Charges Inpatient E&M: 04624 Init Hosp L3
[2022-02-25 08:26] LABS: Potassium 3.8 mmol/L (3.5-5.1)
--- NOTE | 2022-02-25 10:00 | CASEMGMT ---
RN CM Face to Face with patient for initial transition planning/care coordination assessment. RN CM introduced self and role at [facility]. Patient lying in bed, sleeping, and son, Hany, at bedside. Patient willing to participate in assessment and is able to answer all questions appropriately. Care providers, pharmacy, and demographics verified. Family inquiring about different levels of care at discharge. RN CM discussed and explained different levels of care at discharge including SNF and HHC. Family states they are meeting with hospice today. CM to provide SNF and HHC list for family as resources. Family states they have no further needs or concerns at this time. SW updated regarding hospice meeting and conversation with family. CM to follow for discharge planning needs that may arise. PCP: Farooq Specialists: Cody, senior reservoir engineer; Pablo dial refinisher Preferred Pharmacy: [facility] retail at discharge. Insurance: [employer] Pres[employer] Benefit: yes Living Will/HPOA: yes, Isela Powers, HPOA LNOK: , son, daughter Living Arrangements: Patient and recently moved and stay with daughter in her guest house. Guest house is one story and no steps to enter. has been assisting patient with ADLs. Transportation: , daughter DME/HHC: Patient has shower chair, raised toilet, cane, walker, hospital bed, grab bars, Cpap, electric scooter, and home oxygen at 8lpm through [facility] with portability. Patient was setup with [facility] for nursing and therapy but nursing has not seen patient. Disposition Plan: TBD by course of treatment, progress with therapy, and family meeting with hospice. Alice LOUIE, RN, CM
--- NOTE | 2022-02-25 10:02 | CM.ED ---
ROBBY received voice mail from Camilla at [facility]. She reports that they are meeting with the patient and his family at 11:00am. ROBBY updated MS3 manager social. Lucero HERNANDEZ
[2022-02-25] MEDS: Nystatin Powder 15gm Bottle 1 APPLIC TOPICAL ×2 (10:18→22:23)
[2022-02-25] MEDS: AcetaZOLAMIDE 500 MG/10 ML Vial IV (13:37)
[2022-02-25] MEDS: Haloperidol Lactate 5 MG/ML Vial 2 MG IM (13:39)
--- NOTE | 2022-02-25 16:17 | CASEMGMT ---
Soical Work SW placed phone call to Camilla at [facility] to inquire about meeting between family and hospice. Per Camilla, extensive conversation was had with family presenting different options including home with hospice, ECF with hospice or skilled care for rehab. Camilla states family is leaning toward skilled care. SW met with pt and to discuss d/c plan. Pt requesting SW call son Hany Powers and talk to him about d/c. Phone call to Hany and he will be in shortly to talk with ROBBY. ROBBY met with pt son Hany Powers and discussed discharged plan. SW reviewed options of home or ECF and Hospice care. SW discussed insurance coverage and provided initial Medicaid information. Per Hany, he and family would prefer pt go to SNF for short term rehab under pt insurance benefit initially and try to get pt stronger with hopes of pt returning home. Once skilled stay is complete family will evaluate if pt can return home or needs longterm stay in ECF and if they would want hospice at that time. ROBBY provided Hany with list of SNF providers including quality and resource use data and consistent with the patient's preferred geographic region, medical needs and insurance network. SW requested Hany review information with family and make three choices of facilities and let SW know choices in the morning. Physician updated on pt's d/c plan. Plan: SNF for short term Rehab ESTHELA Bell
[2022-02-25] MEDS: morphine (oral solution) 10MG/0.5ML Syringe 5 MG SL ×2 (21:30→23:58)
[2022-02-26] VITALS (18 sets, daily range): BP systolic 102–152; BP diastolic 45–82; PULSE 82–138; RESP 12–26; TEMP 36.7–37.1; O2SAT 37–100
--- NOTE | 2022-02-26 00:30 | NURSING ---
LATE ENTRY - 2129 - PT AGITATED, PULLING OFF P.O., TRYING TO PULL OFF BIPAP, RESTLESS IN BED - DR SONI NOTIFIED & ORDER RECEIVED.
--- NOTE | 2022-02-26 00:31 | NURSING ---
2345 - LATE ENTRY - PT AGITATED, YELLING, THROWING LINENS OFF, PULLING ON BIPAP - DR SONI NOTIFIED & ORDER RECEIVED
--- NOTE | 2022-02-26 05:11 | NURSING ---
PT RESTLESS, AGITATED. LEG HANGING OVER SIDERAIL, O2 SAT 86% ON BIPAP. RESP LABORED. HR TACHY & IRREG. ACCORDING TO HOME MED LIST, PT TAKES LOPRESSOR 25MG BID @ HOME. DR SONI TEXT TO SEE IF WE CAN CONTINUE IT HERE IV.
[2022-02-26] MEDS: 0.9% Saline Lock 10 ML Syringe IV ×5 (05:46→21:01)
[2022-02-26] MEDS: Furosemide 40 MG/4 ML Vial IV ×3 (05:46→21:01)
[2022-02-26] MEDS: Metoprolol Tartrate 5 MG/5 ML Vial 2.5 MG IV (06:07)
[2022-02-26] MEDS: morphine (oral solution) 10MG/0.5ML Syringe 5 MG SL (06:21)
--- NOTE | 2022-02-26 06:24 | NURSING ---
oral care provided, Roxanol given as orders.
--- NOTE | 2022-02-26 06:30 | NURSING ---
PT ASKS THIS NURSE ARE YOU TRYING TO KILL ME?, I REPLIED, NO, OF COURSE NOT. I'M TRYING TO HELP YOU. PT STATES WELL JUST KILL ME. PUT ME OUT OF MY MISERY.
[2022-02-26 06:32] LABS: Absolute Lymphocyte Count 0.37 X10^3/uL (0.83-4.51); Absolute Neutrophil Count 10.1 X10^3/uL (2.0-7.7); Basophil# 0.01 X10^3/uL; Basophil% 0.1 % (0-1); Differential Indicated SCAN CRITERIA MET; Hematocrit 31.5 % (40-54); Hemoglobin 9.3 g/dL (13.0-16.5); Lymphocyte # 0.37 X10^3/ul (0.83-4.51); Lymphocyte % 3.4 % (19-41); Mean Corp Hgb Conc 29.5 g/dL (32-36); Mean Corpuscular Hgb 29.7 pg (27.0-32.0); Mean Corpuscular Volume 100.6 fL (80-94); Mean Platelet Vol. 9.9 fl (6.2-12.0); Monocyte# 0.34 X10^3/uL; Monocyte% 3.1 % (0-10); NRBC Flagged by Analyzer 0 % (0-5); Neutrophil % 92.8 % (47-70); POSITIVE DIFFERENTIAL YES; Platelet Count 221 K/mm3 (150-450); RBC Distribution Width CV 14.5 % (11.6-14.6); RBC Distribution Width SD 53.3 fl (35.1-43.9); Red Blood Count 3.13 M/mm3 (4.6-6.2); White Blood Count 10.9 K/mm3 (4.4-11.0)
--- NOTE | 2022-02-26 06:51 | NURSING ---
PT YELLING OUT, AGITATED, PULLING OFF BIPAP MASK. PT HAS BEEN SCRATCHING R SIDE OF FACE AGAIN MAKING IT BLEED. PT STATING GET ME OUT OF HERE.
[2022-02-26 06:56] LABS: Differential Comment SCANNED
[2022-02-26 07:02] LABS: BUN 29 mg/dL (7-18); Creatinine, Serum 0.62 mg/dL (0.70-1.30); Glucose 159 mg/dL (74-106)
[2022-02-26 07:03] LABS: BUN/Creat Ratio 47.1 RATIO (10-20); Calcium,Total 9.1 mg/dL (8.5-10.1); Carbon Dioxide > 45.0 mmol/L (21.0-32.0); Chloride 83 mmol/L (98-107); EST Glomerular Filtration Rate 137 mL/min (>60); Est Glom Filt Rate - Afr Amer 166 mL/min (>60); Estimated Creatinine Clearance 58.94 ml/min; Potassium 3.5 mmol/L (3.5-5.1); Sodium Level 141 mmol/L (136-145)
--- NOTE | 2022-02-26 07:10 | PCM.PN.HOSP ---
Subjective Subjective Agitated overnight. Pulling off equipment. Pt yelling out Well, just kill me. Put me out of my misery. to nursing. Per the family, patient has been more appropriate today. Objective Data Objective Data Vital Signs: Vital Signs Temp Pulse Resp BP Pulse Ox O2 Del Method O2 Flow Rate 36.8 C 116 H 22 H 102/45 L 95 Bi-pap 10 02/26/22 03:30 02/26/22 06:07 02/26/22 04:58 02/26/22 03:30 02/26/22 04:58 02/26/22 04:00 02/25/22 09:34 FiO2 40 02/26/22 04:58 Oxygen Flow Rate (L/min) 10 Oxygen Delivery Method Bi-pap Weight: 130 kg Body Mass Index (BMI) 48.9 Intake & Output: Intake and Output for Last 24 Hours 02/24/22 02/25/22 02/26/22 23:59 23:59 23:59 Intake Total 1147 / 1147 0 / 0 Output Total 4900 / 5450 1900 / 1900 Balance -3753 / -4303 -1900 / -1900 Lab / Micro Data Result Diagrams: 02/26/22 05:22 02/26/22 05:22 Labs: Laboratory Results - last 24 hr 02/25/22 07:30: Potassium 3.8 02/26/22 05:22: WBC 10.9, RBC 3.13 L, Hgb 9.3 L, Hct 31.5 L, MCV 100.6 H, MCH 29.7, MCHC 29.5 L, RDW Std Deviation 53.3 H, RDW Coeff of Earle 14.5, Plt Count 221, MPV 9.9, Immature Gran % (Auto) 0.600, Neut % (Auto) 92.8 H, Lymph % (Auto) 3.4 L, [place] % (Auto) 3.1, Eos % (Auto) 0.0, Baso % (Auto) 0.1, Absolute Neuts (auto) 10.1 H, Absolute Lymphs (auto) 0.37 L, Nucleated RBC % 0, Differential Comment SCANNED 02/26/22 05:22: Sodium 141, Potassium 3.5, Chloride 83 L, Carbon Dioxide > 45.0 H*, Anion Gap TNP, BUN 29 H, Creatinine 0.62 L, Estim Creat Clear Calc 58.94, Est GFR (MDRD) Af Amer 166, Est GFR (MDRD) Non-Af 137, BUN/Creatinine Ratio 47.1 H, Glucose 159 H, Calcium 9.1 Micro: Microbiology 02/25/22 00:00 Nasal Secretion SARS-CoV-2 Antigen (Rapid) - Final ABG Data ABG results: ABG 02/24/22 18:54 Specimen Type VIRIDIANA VBG pH 7.24 L VBG pO2 140 H VBG HCO3 57 H VBG Total CO2 > 50 H VBG O2 Sat (Calc) 98 H VBG Base Excess 29 H POC Mix VBG pCO2 Pt Tmp 133.9 H* Crit Call To/Read Back Yes Blood Gas Notified Whom [facility] Blood Gas Notified Time 18:56:52 Physical Exam Const Constitutional Narrative: More alert today. Able to communicate appropriately. Patient on BiPAP. Resp Resp Narrative: Coarse breath sounds bilaterally Cardio regular rate, regular rhythm, S1 normal heart sound and S2 normal heart sound GI normal to inspection, nondistended, normoactive bowel sounds and soft to palpation Psych affect normal Assessment & Plan Assessment/Plan (1) Acute hypercapnic respiratory failure: PLAN: Plan 1. Acute on chronic respiratory failure likely secondary to hypercapnia from acute COPD exacerbation and CHF and YENI Slightly improved. FiO2 was decreased from 50-40 and now currently on 10 L high flow oxygen. Patient typically is on 8 L of oxygen at home and uses CPAP HCO3>45, BN peptide 77.9 CODE STATUS is DNR CCA, confirmed with family Pulmonology consult On furosemide and acetazolamide 2. Metabolic encephalopathy Patient had been not very agitated though today. She appears to be much better Avoid potentiating medications. 3. Hypokalemia, potassium K 3.3, will replace, check Mg level Repeat level in am 4. Recent urethral bleeding, history of BPH ,status post continue bladder irrigation in [facility], resolved Home finasteride and Flomax on hold for now on account of n.p.o. status 5. Anemia, hemoglobin appears stable compared to previous, history of recent bleeding 6. Chronic atrial fibrillation, currently in normal sinus rhythm, with first-degree AV block, QTC is 451 Hold metoprolol for now as patient is lethargic and n.p.o. Continue to monitor vitals closely, may need metoprolol IV as needed 7. DVT prophylaxis?Lovenox subcu 6. CODE STATUS DNR CCA, no intubation -confirmed that family Disposition: Met with hospice on the third and they want the patient to get stronger and go to a detention facility and then when he strong enough, then to go to the hospice. Reaffirmed with the patient's family today that they would want him getting better and going to to rehab. Not sure going home with hospice would be appropriate perhaps palliative care, particular the patient overall improved, may be more appropriate. Charges/Coding Visit Charges Inpatient E&M: 59851 Subs Hosp L2
[2022-02-26] MEDS: Ipratropium/Albuterol Sulfate 3 ML AMPUL.NEB INHALATION ×4 (07:16→19:12)
--- NOTE | 2022-02-26 07:23 | PCM.PN.INT ---
Assessment & Plan Assessment/Plan (1) Acute on chronic respiratory failure with hypoxia and hypercapnia: PLAN: Plan RECOMMENDATIONS: 1. Continue BiPAP to as needed and with sleep 2. Continue Lasix at every 8 hours with daily Diamox 3. Continue scheduled bronchodilators. Okay to continue steroids for now 4. Encourage incentive spirometer use and mobilize patient as tolerated. 5. Continue appropriate DVT prophylaxis. 6. Await results of hospice discussion 7. Agree with DNR/DNI. Hold on ICU transfer given CODE STATUS and hospice discussions 8. May recommend comfort measures if family available today IMPRESSIONS: 1. Acute on chronic combined respiratory failure The patient has known end-stage COPD and chronic hypoxemic respiratory failure, with what appears to be a baseline oxygen requirement of 5 to 6 L/min. The patient is already on maximum triple therapy inhaler regimen at his baseline. He has been compliant, per report, with the aforementioned medications. His symptoms, radiographic findings and response to Lasix suggest the possible implication of heart failure with preserved ejection fraction. Diuresis will be maintained as patient appears to be tolerating this well from a renal function perspective. Low clinical suspicion for COPD exacerbation. Okay to continue steroids for now. Anticipate patient will require continued diuresis if remains aggressive. Potential discharge to hospice if able to stabilize given recurrent admissions. 2. Obstructive sleep apnea The patient regularly utilizes nocturnal AutoPap therapy, for which he has been compliant with its use according to his last pulmonary office visit note. However, given CO2 retention, discharge on BiPAP or noninvasive ventilator such as astral or trilogy may be necessary. Will reassess as patient gets closer to discharge. 3. Morbid obesity/anemia/BPH/GERD/paroxysmal atrial fibrillation Complicates care, management, recovery and prognosis. Continue home medications as indicated. This note was generated with [employer] dictation software. It may contain incorrect words, spelling, and punctuation that were not noted in checking the note before signing. Subjective Subjective Patient remains very confused. Patient not able to recognize me again today. Patient's oxygen requirements have improved, but he has had difficulties tolerating BiPAP. Patient also has been impulsive trying to get out of bed. Patient was treated with Roxanol overnight with marginal effect. Objective Data Objective Data Vital Signs: Vital Signs Temp Pulse Resp BP Pulse Ox O2 Del Method O2 Flow Rate 36.8 C 116 H 22 H 102/45 L 95 Bi-pap 10 02/26/22 03:30 02/26/22 06:07 02/26/22 04:58 02/26/22 03:30 02/26/22 04:58 02/26/22 04:00 02/25/22 09:34 FiO2 40 02/26/22 04:58 Oxygen Flow Rate (L/min) 10 Oxygen Delivery Method Bi-pap Weight: 130 kg Body Mass Index (BMI) 48.9 Intake & Output: Intake and Output for Last 24 Hours 02/24/22 02/25/22 02/26/22 23:59 23:59 23:59 Intake Total 1147 / 1147 0 / 0 Output Total 4900 / 5450 1900 / 1900 Balance -3753 / -4303 -1900 / -1900 Lab / Micro Data Attestation: I reviewed the patient's lab results. Result Diagrams: 02/26/22 05:22 02/26/22 05:22 Labs: Laboratory Results - last 24 hr 02/25/22 07:30: Potassium 3.8 02/26/22 05:22: WBC 10.9, RBC 3.13 L, Hgb 9.3 L, Hct 31.5 L, MCV 100.6 H, MCH 29.7, MCHC 29.5 L, RDW Std Deviation 53.3 H, RDW Coeff of Earle 14.5, Plt Count 221, MPV 9.9, Immature Gran % (Auto) 0.600, Neut % (Auto) 92.8 H, Lymph % (Auto) 3.4 L, [place] % (Auto) 3.1, Eos % (Auto) 0.0, Baso % (Auto) 0.1, Absolute Neuts (auto) 10.1 H, Absolute Lymphs (auto) 0.37 L, Nucleated RBC % 0, Differential Comment SCANNED 02/26/22 05:22: Sodium 141, Potassium 3.5, Chloride 83 L, Carbon Dioxide > 45.0 H*, Anion Gap TNP, BUN 29 H, Creatinine 0.62 L, Estim Creat Clear Calc 58.94, Est GFR (MDRD) Af Amer 166, Est GFR (MDRD) Non-Af 137, BUN/Creatinine Ratio 47.1 H, Glucose 159 H, Calcium 9.1 Micro: Microbiology 02/25/22 00:00 Nasal Secretion SARS-CoV-2 Antigen (Rapid) - Final ABG Data ABG results: ABG 02/24/22 18:54 Specimen Type VIRIDIANA VBG pH 7.24 L VBG pO2 140 H VBG HCO3 57 H VBG Total CO2 > 50 H VBG O2 Sat (Calc) 98 H VBG Base Excess 29 H POC Mix VBG pCO2 Pt Tmp 133.9 H* Crit Call To/Read Back Yes Blood Gas Notified Whom christi Blood Gas Notified Time 18:56:52 Physical Exam Const Constitutional Narrative: RASS -1. Morbidly obese. General Appearance: in distress Positive for mild and respiratory and lethargic HEENT normocephalic Eyes Eyes Narrative: Significant bruising of the right eye. No laceration appreciated. Neck full ROM Chest Chest: abnormal inspection of the chest increased A-P diameter and symmetrical chest wall rise Resp Effort and Inspection: tachypneic and prolonged expiratory phase Auscultation: rales and diminished lung sounds; Negative for rhonchi or wheezes Cardio S1 normal heart sound, S2 normal heart sound, no murmurs, no rub and no gallops Rhythm: abnormal rhythm irregularly irregular GI normal to inspection, nondistended, normoactive bowel sounds GI Narrative: Exam somewhat limited given body habitus Extremity General Extremity: clubbing and edema Skin Skin Narrative: Multiple bruises noted in various stages of healing. Neuro moves all extremities and no focal motor deficits Psych Activity / Motor Behavior: restless Charges/Coding Visit Charges Inpatient E&M: 93819 Subs Hosp L3
[2022-02-26] MEDS: AcetaZOLAMIDE 500 MG/10 ML Vial IV (12:58)
--- NOTE | 2022-02-26 14:26 | CASEMGMT ---
Social Work SW met with pt's son Hany to discuss discharge plan. Hany states he is hopeful pt will improve in status and be able to go to SNF for short term rehabilitation. With hopes that he can eventually return home, if he cannot return home technician terminal and repeater care would be indicated. Hany states he has not made a decision on facility of choice at this time. He will visit facilities today and let SW know his choices. ESTHELA Bell
[2022-02-26] MEDS: Nystatin Powder 15gm Bottle 1 APPLIC TOPICAL ×2 (14:40→21:01)
[2022-02-26] MEDS: Potassium Chloride Oral Tablet 20 MEQ 40 MEQ PO (16:20)
--- NOTE | 2022-02-26 22:25 | NURSING ---
UPON ENTERING ROOM, FOUND PT DIAPHORETIC, O2 SAT 37% ON 6L NC HIGH GLORIA. REMOVED NC & IMMEDIATELY PLACED BACK ON BIPAP. WITHIN APPROX 5 MINUTES, PT'S O2 SAT 90%, HR 100, RESP 21.
[2022-02-27] VITALS (17 sets, daily range): BP systolic 142–151; BP diastolic 65–76; PULSE 69–102; RESP 12–29; TEMP 36.3–36.8; O2SAT 93–100
[2022-02-27] MEDS: morphine (oral solution) 10MG/0.5ML Syringe 10 MG SL (03:57)
--- NOTE | 2022-02-27 04:34 | NURSING ---
LATE ENTRY - 299 - PT TOOK PULSE OX OFF, WAS ATTEMPTING TO CLIMB OOB. PT STATES LET ME I DON'T WANT ANY OF THIS ANYMORE. PT ASKED THAT HIS BE CALLED. , CONNOR CALLED & EXPLAINED TO HER THAT PT WILL NOT LEAVE PULSE OX ON, CONTINUES TO ATTEMPT TO REMOVE BIPAP MASK, AGITATED, STATING THAT HE WANTS TO . CONNOR TOLD THIS NURSE THAT PT TOLD HER 02/26 THAT HE WANTED TO AND SHE TOLD HIM IT'S NOT HIS TIME. CONNOR ASKED THAT THIS NURSE TELL PT TO LEAVE THE BIPAP ON FOR HER AND SHE WILL BE IN TO SEE HIM IN THE MORNING. PT WAS TOLD SAME & PT ASKED ARE YOU LYING TO ME?. PT REFUSING VITAL SIGNS. 419 - , CONNOR CALLED IN TO SEE IF PT WAS STILL AGITATED. TOLD CONNOR THAT HE IS & SHE ASKED TO SPEAK TO HIM. TRANSFERRED CALL INTO PT ROOM & NURSE ASSISTED PT TO TALK ON TELEPHONE. ASKED PT THAT HE LEAVE BIPAP ON. 444 - PT PULLED PULSE OX OFF AGAIN, UPON ENTERING ROOM, PT LYING ON SIDE WITH HEAD AGAINST SIDE RAIL TELLING THIS NURSE I CAN'T TAKE IT ANYMORE. I'M BURNT OUT
[2022-02-27] MEDS: 0.9% Saline Lock 10 ML Syringe IV ×4 (05:56→21:18)
[2022-02-27] MEDS: Furosemide 40 MG/4 ML Vial IV ×3 (05:56→21:06)
[2022-02-27 06:07] LABS: Absolute Lymphocyte Count 0.41 X10^3/uL (0.83-4.51); Basophil# 0.01 X10^3/uL; Basophil% 0.1 % (0-1); Differential Indicated SCAN CRITERIA MET; Hematocrit 35.5 % (40-54); Hemoglobin 10.2 g/dL (13.0-16.5); Lymphocyte # 0.41 X10^3/ul (0.83-4.51); Lymphocyte % 3.7 % (19-41); Mean Corp Hgb Conc 28.7 g/dL (32-36); Mean Corpuscular Hgb 29.6 pg (27.0-32.0); Mean Corpuscular Volume 102.9 fL (80-94); Mean Platelet Vol. 9.6 fl (6.2-12.0); Monocyte# 0.64 X10^3/uL; Monocyte% 5.7 % (0-10); NRBC Flagged by Analyzer 0 % (0-5); Neutrophil # 10.03 X10^3/uL (2.7-7.7); Neutrophil % 89.8 % (47-70); POSITIVE DIFFERENTIAL YES; Platelet Count 239 K/mm3 (150-450); RBC Distribution Width CV 14.4 % (11.6-14.6); RBC Distribution Width SD 54.4 fl (35.1-43.9); Red Blood Count 3.45 M/mm3 (4.6-6.2); White Blood Count 11.2 K/mm3 (4.4-11.0)
[2022-02-27 06:32] LABS: BUN 40 mg/dL (7-18); BUN/Creat Ratio 53.3 RATIO (10-20); Carbon Dioxide > 45.0 mmol/L (21.0-32.0); Chloride 86 mmol/L (98-107); Creatinine, Serum 0.75 mg/dL (0.70-1.30); EST Glomerular Filtration Rate 109 mL/min (>60); Est Glom Filt Rate - Afr Amer 132 mL/min (>60); Estimated Creatinine Clearance 58.94 ml/min; Glucose 160 mg/dL (74-106); Potassium 3.8 mmol/L (3.5-5.1); Sodium Level 142 mmol/L (136-145)
[2022-02-27 06:58] LABS: Anisocytosis RARE; Differential Comment SCANNED; Macrocytosis RARE
[2022-02-27] MEDS: Ipratropium/Albuterol Sulfate 3 ML AMPUL.NEB INHALATION ×4 (07:03→19:21)
--- NOTE | 2022-02-27 07:05 | PN.CC_ITS ---
Assessment & Plan Assessment/Plan (1) Acute on chronic respiratory failure with hypoxia and hypercapnia: PLAN: Plan RECOMMENDATIONS: 1. Continue BiPAP to as needed and with sleep 2. Continue Lasix at every 8 hours with daily Diamox 3. Continue scheduled bronchodilators. Anticipate 5 days of steroids total 4. Encourage incentive spirometer use and mobilize patient as tolerated. 5. Continue appropriate DVT prophylaxis. 6. Await results of hospice discussion 7. Agree with DNR/DNI. Hold on ICU transfer given CODE STATUS and hospice discussions 8. May recommend comfort measures if family available today IMPRESSIONS: 1. Acute on chronic combined respiratory failure The patient has known end-stage COPD and chronic hypoxemic respiratory failure, with what appears to be a baseline oxygen requirement of 5 to 6 L/min. The patient is already on maximum triple therapy inhaler regimen at his baseline. He has been compliant, per report, with the aforementioned medications. His symptoms, radiographic findings and response to Lasix suggest the possible implication of heart failure with preserved ejection fraction. Diuresis will be maintained as patient appears to be tolerating this well from a renal function perspective. Low clinical suspicion for COPD exacerbation. Anticipate 5 days total of steroids. Steroids may be worsening delirium. Anticipate patient will require continued diuresis if remains aggressive. Potential discharge to hospice if able to stabilize given recurrent admissions. 2. Obstructive sleep apnea The patient regularly utilizes nocturnal AutoPap therapy, for which he has been compliant with its use according to his last pulmonary office visit note. However, given CO2 retention, discharge on BiPAP or noninvasive ventilator such as astral or trilogy may be necessary. Will reassess as patient gets closer to discharge. 3. Morbid obesity/anemia/BPH/GERD/paroxysmal atrial fibrillation Complicates care, management, recovery and prognosis. Continue home medications as indicated. Family very resistant to transition to hospice therapy during family meeting yesterday afternoon. 4. Metabolic encephalopathy Patient with significant delirium overnight. Patient did appear to be improving during the day. Given low suspicion for obstructive lung disease as an etiology, will limit steroids to 5 days as this could be worsening evening delirium. This note was generated with [employer] dictation software. It may contain incorrect words, spelling, and punctuation that were not noted in checking the note before signing. Subjective Subjective Patient again had agitation overnight with removal of BiPAP. Patient desaturated into the 40s on 6 L nasal cannula. Patient was resting comfortably during my evaluation. Patient continues to diurese well. Objective Data Objective Data Mild hematuria noted in Cruz catheter Vital Signs: Vital Signs Temp Pulse Resp BP Pulse Ox O2 Del Method O2 Flow Rate 36.6 C 85 13 151/76 H 93 Bi-pap 6 02/27/22 06:03 02/27/22 07:03 02/27/22 07:03 02/27/22 06:03 02/27/22 07:03 02/27/22 06:03 02/26/22 22:15 FiO2 40 02/27/22 07:03 Oxygen Flow Rate (L/min) 6 Oxygen Delivery Method Bi-pap Weight: 130.1 kg Body Mass Index (BMI) 48.9 Intake & Output: Intake and Output for Last 24 Hours 02/25/22 02/26/22 02/27/22 23:59 23:59 23:59 Intake Total 1147 / 1147 300 / 300 0 / 0 Output Total 4900 / 5450 3200 / 4150 1450 / 1450 Balance -3753 / -4303 -2900 / -3850 -1450 / -1450 Lab / Micro Data Attestation: I reviewed the patient's lab results. Result Diagrams: 02/27/22 06:00 02/27/22 06:00 Labs: Laboratory Results - last 24 hr 02/27/22 06:00: WBC 11.2 H, RBC 3.45 L, Hgb 10.2 L, Hct 35.5 L, MCV 102.9 H, MCH 29.6, MCHC 28.7 L, RDW Std Deviation 54.4 H, RDW Coeff of Earle 14.4, Plt Count 239, MPV 9.6, Immature Gran % (Auto) 0.700, Neut % (Auto) 89.8 H, Lymph % (Auto) 3.7 L, [place] % (Auto) 5.7, Eos % (Auto) 0.0, Baso % (Auto) 0.1, Absolute Neuts (a uto) 10.0 H, Absolute Lymphs (auto) 0.41 L, Nucleated RBC % 0, Differential Comment SCANNED, Anisocytosis RARE, Macrocytosis RARE 02/27/22 06:00: Sodium 142, Potassium 3.8, Chloride 86 L, Carbon Dioxide > 45.0 H*, Anion Gap TNP, BUN 40 H, Creatinine 0.75, Estim Creat Clear Calc 58.94, Est GFR (MDRD) Af Amer 132, Est GFR (MDRD) Non-Af 109, BUN/Creatinine Ratio 53.3 H, Glucose 160 H, Calcium 9.0 Micro: Microbiology 02/25/22 00:00 Nasal Secretion SARS-CoV-2 Antigen (Rapid) - Final Physical Exam Const Constitutional Narrative: RASS -2. Morbidly obese. On BiPAP therapy General Appearance: lethargic; Negative for in distress HEENT normocephalic Eyes Eyes Narrative: Significant bruising of the right eye. No laceration appreciated. Able to open eyes to voice Neck full ROM Chest Chest: abnormal inspection of the chest increased A-P diameter and symmetrical chest wall rise Resp Effort and Inspection: prolonged expiratory phase; Negative for actively coughing or uses accessory muscles Auscultation: rales and diminished lung sounds; Negative for rhonchi or wheezes Cardio S1 normal heart sound, S2 normal heart sound, no murmurs, no rub and no gallops Rhythm: abnormal rhythm irregularly irregular GI normal to inspection, nondistended, normoactive bowel sounds GI Narrative: Exam somewhat limited given body habitus Extremity General Extremity: clubbing and edema Skin Skin Narrative: Multiple bruises noted in various stages of healing. Neuro moves all extremities and no focal motor deficits Psych Mood & Affect: flat affect Charges/Coding Visit Charges Inpatient E&M: 42192 Subs Hosp L3
--- NOTE | 2022-02-27 07:08 | PCM.PN.HOSP ---
Subjective Subjective Weaned down to 6l/m. Feels that he is breathing ok. Objective Data Objective Data Vital Signs: Vital Signs Temp Pulse Resp BP Pulse Ox O2 Del Method O2 Flow Rate 36.6 C 85 13 151/76 H 93 Bi-pap 6 02/27/22 06:03 02/27/22 07:03 02/27/22 07:03 02/27/22 06:03 02/27/22 07:03 02/27/22 06:03 02/26/22 22:15 FiO2 40 02/27/22 07:03 Oxygen Flow Rate (L/min) 6 Oxygen Delivery Method Bi-pap Weight: 130.1 kg Body Mass Index (BMI) 48.9 Intake & Output: Intake and Output for Last 24 Hours 02/25/22 02/26/22 02/27/22 23:59 23:59 23:59 Intake Total 1147 / 1147 300 / 300 0 / 0 Output Total 4900 / 5450 3200 / 4150 1450 / 1450 Balance -3753 / -4303 -2900 / -3850 -1450 / -1450 Lab / Micro Data Result Diagrams: 02/27/22 06:00 02/27/22 06:00 Labs: Laboratory Results - last 24 hr 02/27/22 06:00: WBC 11.2 H, RBC 3.45 L, Hgb 10.2 L, Hct 35.5 L, MCV 102.9 H, MCH 29.6, MCHC 28.7 L, RDW Std Deviation 54.4 H, RDW Coeff of Earle 14.4, Plt Count 239, MPV 9.6, Immature Gran % (Auto) 0.700, Neut % (Auto) 89.8 H, Lymph % (Auto) 3.7 L, [place] % (Auto) 5.7, Eos % (Auto) 0.0, Baso % (Auto) 0.1, Absolute Neuts (auto) 10.0 H, Absolute Lymphs (auto) 0.41 L, Nucleated RBC % 0, Differential Comment SCANNED, Anisocytosis RARE, Macrocytosis RARE 02/27/22 06:00: Sodium 142, Potassium 3.8, Chloride 86 L, Carbon Dioxide > 45.0 H*, Anion Gap TNP, BUN 40 H, Creatinine 0.75, Estim Creat Clear Calc 58.94, Est GFR (MDRD) Af Amer 132, Est GFR (MDRD) Non-Af 109, BUN/Creatinine Ratio 53.3 H, Glucose 160 H, Calcium 9.0 Micro: Microbiology 02/25/22 00:00 Nasal Secretion SARS-CoV-2 Antigen (Rapid) - Final Physical Exam Const alert and no apparent distress Resp Resp Narrative: coarse breath sounds bilaterally. Cardio regular rate, regular rhythm, S1 normal heart sound and S2 normal heart sound GI normal to inspection, nondistended, normoactive bowel sounds and soft to palpation Extremity General Extremity: edema bilateral lower extremity Details: moderate Neuro Sensorium / Orientation: awake Assessment & Plan Assessment/Plan (1) Acute hypercapnic respiratory failure: PLAN: from acute COPD exacerbation and CHF and YENI Improved Patient typically is on 8 L of oxygen at home and uses CPAP HCO3>45, BN peptide 77.9 CODE STATUS is DNR CCA, confirmed with family Pulmonology consult On furosemide and acetazolamide (2) Metabolic encephalopathy: PLAN: improved likely multifactorial Patient had been not very agitated though today. She appears to be much better Avoid potentiating medications. PLAN: Plan 3. Hypokalemia, potassium K 3.3, will replace, check Mg level Repeat level in am 4. Recent urethral bleeding, history of BPH ,status post continue bladder irrigation in [facility], resolved Home finasteride and Flomax on hold for now on account of n.p.o. status 5. Anemia, hemoglobin appears stable compared to previous, history of recent bleeding 6. Chronic atrial fibrillation, currently in normal sinus rhythm, with first-degree AV block, QTC is 451 Hold metoprolol for now as patient is lethargic and n.p.o. Continue to monitor vitals closely, may need metoprolol IV as needed 7. DVT prophylaxis?Lovenox subcu 6. CODE STATUS DNR CCA, no intubation -confirmed that family Disposition: TBD. Met with hospice on the third and they want the patient to get stronger and go to a [facility] facility and then when he strong enough, then to go to the hospice. Reaffirmed with the patient's family today that they would want him getting better and going to to rehab. Palliative care upon discharge would seem more appropriate. Charges/Coding Visit Charges Inpatient E&M: 92458 Subs Hosp L2
[2022-02-27] MEDS: Nystatin Powder 15gm Bottle 1 APPLIC TOPICAL ×2 (08:29→21:06)
[2022-02-27] MEDS: AcetaZOLAMIDE 500 MG/10 ML Vial IV (13:49)
--- NOTE | 2022-02-27 15:04 | CASEMGMT ---
Addendum entered by Aide Jacobo 02/27/22 16:56: Social Work Return call from pt son Hany and discussed discharge plan. Hany states he feels pt has shown significant improvement today over yesterday and plans for pt to go to SNF for short term rehab and return home. SW inquired with Hany about pts difficult nights and comments about wanting to be done with treatment. Hany states that pt has not said this to him but did mention it to his mother this morning. Hany states, dad still has some fight left in him. Hany's [facility] for SNF are [facility]. SW inquired if they have spoke with pt about this. Hany requests it be called a rehab and not care home as pt will be more agreeable to this. Phone call to [facility] and pt name placed on list. SW will follow up on Wednesday for discharge plan. Pt will need accepted and precert will be needed to go to SNF. ESTHELA Bell Original Note: Social Work VM left with pt son Hany to discuss discharge plan. SW will await return call. ESTHELA Bell
--- NOTE | 2022-02-27 18:58 | NURSING ---
Patient was drowsy, snoring slightly. He was switched to bipap at this time.
[2022-02-27] MEDS: Metoprolol Tartrate 25 MG Tablet PO (21:03)
[2022-02-28] VITALS (13 sets, daily range): BP systolic 112–132; BP diastolic 57–62; PULSE 63–89; RESP 12–28; TEMP 36–36.6; O2SAT 94–99
[2022-02-28] MEDS: morphine (oral solution) 10MG/0.5ML Syringe 10 MG SL (03:29)
[2022-02-28] MEDS: 0.9% Saline Lock 10 ML Syringe IV ×3 (05:16→20:59)
[2022-02-28] MEDS: Furosemide 40 MG/4 ML Vial IV ×3 (05:17→21:00)
[2022-02-28] MEDS: Ipratropium/Albuterol Sulfate 3 ML AMPUL.NEB INHALATION ×4 (07:02→19:24)
--- NOTE | 2022-02-28 07:04 | PN.HOSP_ITS ---
Subjective Subjective Less interactive today. Objective Data Objective Data Vital Signs: Vital Signs Temp Pulse Resp BP Pulse Ox O2 Del Method O2 Flow Rate 36.6 C 74 15 117/62 95 Bi-pap 6 02/28/22 02:20 02/28/22 07:02 02/28/22 07:02 02/28/22 02:20 02/28/22 07:02 02/28/22 02:20 02/27/22 16:54 FiO2 35 02/28/22 07:02 Oxygen Flow Rate (L/min) 6 Oxygen Delivery Method Bi-pap Weight: 125.2 kg Body Mass Index (BMI) 48.9 Intake & Output: Intake and Output for Last 24 Hours 02/26/22 02/27/22 02/28/22 23:59 23:59 23:59 Intake Total 300 / 300 640 / 740 250 / 250 Output Total 3200 / 4150 3500 / 4200 1350 / 1350 Balance -2900 / -3850 -2860 / -3460 -1100 / -1100 Lab / Micro Data Result Diagrams: 02/27/22 06:00 02/28/22 05:37 Micro: Microbiology 02/24/22 16:45 Blood Culture (Wb) - Anticubital Left Blood Culture - Preliminary No growth in 48 hours. 02/24/22 17:15 Blood Culture (Wb) - Right Hand Blood Culture - Preliminary No growth in 48 hours. 02/25/22 00:00 Nasal Secretion SARS-CoV-2 Antigen (Rapid) - Final Physical Exam Const Constitutional Narrative: on BiPAP, lying on his left side. Resp Resp Narrative: coarse breath sounds bilaterally. Cardio regular rate, regular rhythm, S1 normal heart sound and S2 normal heart sound GI normal to inspection, nondistended, normoactive bowel sounds and soft to palpation Extremity normal to inspection Psych affect normal Assessment & Plan Assessment/Plan (1) Acute hypercapnic respiratory failure: PLAN: from acute COPD exacerbation and CHF and YENI Improved Patient typically is on 8 L of oxygen at home and uses CPAP HCO3>45, BN peptide 77.9 CODE STATUS is DNR CCA, confirmed with family Pulmonology consult On furosemide and acetazolamide Patient to use AVAPS with sleep and naps (2) Metabolic encephalopathy: PLAN: improved likely multifactorial Patient had been not very agitated though today. She appears to be much better Avoid potentiating medications. PLAN: Plan 3. Hypokalemia, Improved 4. Recent urethral bleeding, history of BPH ,status post continue bladder irrigation in [facility], resolved Continue finasteride and Flomax 5. Anemia, hemoglobin appears stable compared to previous, history of recent bleeding 6. Chronic atrial fibrillation, currently in normal sinus rhythm, with first- degree AV block, QTC is 451 Continue oral metoprolol Not on anticoagulation given recent bleeding 7. DVT prophylaxis?Lovenox subcu 6. CODE STATUS DNR CCA, no intubation Disposition: TBD. Family has met with hospice on the third and they want the patient to get stronger and go to a [facility] facility and then when he strong enough, then to go to the hospice. Reaffirmed with the patient's family that they would want him getting better and going to to rehab. Palliative care, rather than hospice, upon discharge would seem more appropriate, unless his condition changes. Charges/Coding Visit Charges Inpatient E&M: 17000 Subs Hosp L2
[2022-02-28 07:22] LABS: BUN 46 mg/dL (7-18); BUN/Creat Ratio 73.8 RATIO (10-20); Calcium,Total 9.1 mg/dL (8.5-10.1); Carbon Dioxide > 45.0 mmol/L (21.0-32.0); Chloride 85 mmol/L (98-107); Creatinine, Serum 0.62 mg/dL (0.70-1.30); EST Glomerular Filtration Rate 135 mL/min (>60); Est Glom Filt Rate - Afr Amer 164 mL/min (>60); Estimated Creatinine Clearance 58.94 ml/min; Glucose 157 mg/dL (74-106); Potassium 3.6 mmol/L (3.5-5.1); Sodium Level 141 mmol/L (136-145)
--- NOTE | 2022-02-28 08:14 | PCM.PN.INT ---
Assessment & Plan Assessment/Plan (1) Acute on chronic respiratory failure with hypoxia and hypercapnia: PLAN: Plan RECOMMENDATIONS: 1. Transition to AVAPS with targeted tidal volume of 450 as needed and with sleep 2. Continue Lasix at every 8 hours with daily Diamox 3. Continue scheduled bronchodilators. Discontinue steroids 4. Encourage incentive spirometer use and mobilize patient as tolerated. 5. Continue appropriate DVT prophylaxis. 6. Continue to discuss goals of therapy 7. Agree with DNR/DNI. Hold on ICU transfer given CODE STATUS and hospice discussions IMPRESSIONS: 1. Acute on chronic combined respiratory failure The patient has known end-stage COPD and chronic hypoxemic respiratory failure, with what appears to be a baseline oxygen requirement of 5 to 6 L/min. The patient is already on maximum triple therapy inhaler regimen at his baseline. He has been compliant, per report, with the aforementioned medications. His symptoms, radiographic findings and response to Lasix suggest the possible implication of heart failure with preserved ejection fraction. Diuresis will be maintained as patient appears to be tolerating this well from a renal function perspective. Low clinical suspicion for COPD exacerbation. Will discontinue steroids as they may be worsening delirium. Anticipate patient will require continued diuresis if remains aggressive. Potential discharge to palliative care if able to stabilize given recurrent admissions. Family with poor insight into patient's overall condition 2. Obstructive sleep apnea The patient regularly utilizes nocturnal AutoPap therapy, for which he has been compliant with its use according to his last pulmonary office visit note. However, given CO2 retention, will transition to noninvasive ventilation with AVAPS. This will need to be continued at discharge. Will reassess as patient gets closer to discharge. 3. Morbid obesity/anemia/BPH/GERD/paroxysmal atrial fibrillation Complicates care, management, recovery and prognosis. Continue home medications as indicated. Family very resistant to transition to hospice therapy during family meeting previously. 4. Metabolic encephalopathy Patient with significant delirium overnight. Patient did appear to be improving during the day. Given low suspicion for obstructive lung disease as an etiology. Steroids will be discontinued This note was generated with [employer] dictation software. It may contain incorrect words, spelling, and punctuation that were not noted in checking the note before signing. Subjective Subjective Patient continues to respond to diuresis. Nursing did report periodic episodes of desaturation overnight on BiPAP therapy. Patient did receive Roxanol secondary to agitation. Patient was able to open his eyes to voice, but is not actively interacting in conversation. Objective Data Objective Data Vital Signs: Vital Signs Temp Pulse Resp BP Pulse Ox O2 Del Method O2 Flow Rate 36.6 C 81 27 H 117/62 94 Bi-pap 6 02/28/22 02:20 02/28/22 08:04 02/28/22 08:04 02/28/22 02:20 02/28/22 08:04 02/28/22 02:20 02/27/22 16:54 FiO2 30 02/28/22 08:04 Oxygen Flow Rate (L/min) 6 Oxygen Delivery Method Bi-pap Weight: 125.2 kg Body Mass Index (BMI) 48.9 Intake & Output: Intake and Output for Last 24 Hours 02/26/22 02/27/22 02/28/22 23:59 23:59 23:59 Intake Total 300 / 300 640 / 740 250 / 250 Output Total 3200 / 4150 3500 / 4200 1350 / 1350 Balance -2900 / -3850 -2860 / -3460 -1100 / -1100 Lab / Micro Data Attestation: I reviewed the patient's lab results. Result Diagrams: 02/27/22 06:00 02/28/22 05:37 Labs: Laboratory Results - last 24 hr 02/28/22 05:37: Sodium 141, Potassium 3.6, Chloride 85 L, Carbon Dioxide > 45.0 H*, Anion Gap TNP, BUN 46 H, Creatinine 0.62 L, Estim Creat Clear Calc 58.94, Est GFR (MDRD) Af Amer 164, Est GFR (MDRD) Non-Af 135, BUN/Creatinine Ratio 73.8 H, Glucose 157 H, Calcium 9.1 Micro: Microbiology 02/24/22 16:45 Blood Culture (Wb) - Anticubital Left Blood Culture - Preliminary No growth in 48 hours. 02/24/22 17:15 Blood Culture (Wb) - Right Hand Blood Culture - Preliminary No growth in 48 hours. 02/25/22 00:00 Nasal Secretion SARS-CoV-2 Antigen (Rapid) - Final Physical Exam Const Constitutional Narrative: RASS -2. Morbidly obese. On BiPAP therapy with good synchrony General Appearance: lethargic; Negative for in distress HEENT normocephalic Eyes Eyes Narrative: Significant bruising of the right eye. No laceration appreciated. Able to open eyes to voice Neck full ROM Chest Chest: abnormal inspection of the chest increased A-P diameter and symmetrical chest wall rise Resp Effort and Inspection: prolonged expiratory phase; Negative for actively coughing or uses accessory muscles Auscultation: rales and diminished lung sounds; Negative for rhonchi or wheezes Cardio S1 normal heart sound, S2 normal heart sound, no murmurs, no rub and no gallops Rhythm: abnormal rhythm irregularly irregular GI normal to inspection, nondistended, normoactive bowel sounds GI Narrative: Exam somewhat limited given body habitus Extremity Extremity Narrative: Anasarca is improving. General Extremity: clubbing and edema Skin Skin Narrative: Multiple bruises noted in various stages of healing. Neuro moves all extremities and no focal motor deficits Psych Mood & Affect: flat affect Charges/Coding Visit Charges Inpatient E&M: 62556 Subs Hosp L3
[2022-02-28] MEDS: Metoprolol Tartrate 25 MG Tablet PO ×2 (09:30→20:59)
[2022-02-28] MEDS: Nystatin Powder 15gm Bottle 1 APPLIC TOPICAL ×2 (09:30→21:03)
[2022-02-28] MEDS: Aspirin E.C. 81 MG Tablet PO (09:30)
--- NOTE | 2022-02-28 13:30 | CASEMGMT ---
RN CM Face to Face with patient for initial transition planning/care coordination assessment. RN CM introduced self and role at [facility]. Patient lying in bed, alert and oriented. Patient willing to participate in assessment and is able to answer all questions appropriately. Care providers, pharmacy, and demographics verified. Patient wishes to discharge home, denies need for home health at this time. Patient states he has no further needs or concerns at this time. CM to follow for discharge planning needs that may arise. PCP: None, PCP list provide in [place] area as patient states he is moving back to area Specialists: none Preferred Pharmacy: none Insurance: none Prescription Benefit: none Living Will/HPOA: none LNOK: daughter Living Arrangements: Patient lives in [place]. Patient currently staying with daughter in 2 story home. Patient states he is independent and able to ambulate stairs. Transportation: self, daughter DME/HHC: Patient states he has glucometer and testing supplies at [facility]. Disposition Plan: Patient to discharge to [facility] with family support and follow-up plans in place. Alice LOUIE, RN, CM
[2022-02-28] MEDS: AcetaZOLAMIDE 500 MG/10 ML Vial IV (13:43)
[2022-02-28] MEDS: Potassium Chloride Oral Tablet 20 MEQ PO (17:30)
[2022-02-28] MEDS: Tamsulosin HCl 0.4 MG Capsule 0.8 MG PO (20:59)
--- NOTE | 2022-02-28 22:06 | NURSING ---
late entry- at 2100 pt pulled his drsg off to his RFA and pulled his IV out with kevin wrap drsg. noted blood all over the floor and his sheets. cleaned pt and changed pt sheets. noted pt pick on his wound to his Rt eye and its bleeding again. pt does not see m to comprehend or follow nurses instructions.
[2022-03-01] VITALS (13 sets, daily range): BP systolic 107–143; BP diastolic 64–79; PULSE 67–91; RESP 14–24; TEMP 36.4–36.8; O2SAT 92–100
[2022-03-01] MEDS: Ipratropium/Albuterol Sulfate 3 ML AMPUL.NEB INHALATION ×4 (02:50→20:05)
[2022-03-01] MEDS: 0.9% Saline Lock 10 ML Syringe IV ×2 (05:08→21:24)
[2022-03-01] MEDS: Furosemide 40 MG/4 ML Vial IV ×3 (05:09→21:24)
[2022-03-01 06:24] LABS: Absolute Lymphocyte Count 0.77 X10^3/uL (0.83-4.51); Absolute Neutrophil Count 7.7 X10^3/uL (2.0-7.7); Basophil# 0.02 X10^3/uL; Basophil% 0.2 % (0-1); Eosinophil# 0.04 X10^3/uL; Eosinophils% 0.4 % (0-5); Hematocrit 35.1 % (40-54); Hemoglobin 10.2 g/dL (13.0-16.5); Lymphocyte # 0.77 X10^3/ul (0.83-4.51); Lymphocyte % 8.2 % (19-41); Mean Corp Hgb Conc 29.1 g/dL (32-36); Mean Corpuscular Hgb 29.3 pg (27.0-32.0); Mean Corpuscular Volume 100.9 fL (80-94); Mean Platelet Vol. 9.7 fl (6.2-12.0); Monocyte# 0.79 X10^3/uL; Monocyte% 8.4 % (0-10); NRBC Flagged by Analyzer 0 % (0-5); Neutrophil # 7.67 X10^3/uL (2.7-7.7); Neutrophil % 81.9 % (47-70); Platelet Count 192 K/mm3 (150-450); RBC Distribution Width CV 13.9 % (11.6-14.6); RBC Distribution Width SD 51.7 fl (35.1-43.9); Red Blood Count 3.48 M/mm3 (4.6-6.2); White Blood Count 9.4 K/mm3 (4.4-11.0)
--- NOTE | 2022-03-01 07:14 | PCM.PN.HOSP ---
Subjective Subjective Took his AVAPS mask off and was noted to be blue in the face and his pulse ox was in the 30s. Patient was placed back on it and I did improve. Patient currently on 6 L high flow oxygen. Laying on his side and confused. States that he wants to get out of here asked him where he wants to go and he said home. Objective Data Objective Data Vital Signs: Vital Signs Temp Pulse Resp BP Pulse Ox O2 Del Method O2 Flow Rate 36.8 C 86 20 H 124/79 H 95 High Flow 6 03/01/22 02:00 03/01/22 06:48 03/01/22 06:48 03/01/22 02:00 03/01/22 06:48 02/28/22 20:00 02/28/22 20:00 FiO2 40 03/01/22 06:48 Oxygen Flow Rate (L/min) 6 Oxygen Delivery Method High Flow Weight: 124 kg Body Mass Index (BMI) 48.9 Intake & Output: Intake and Output for Last 24 Hours 02/27/22 02/28/22 03/01/22 23:59 23:59 23:59 Intake Total 640 / 740 1050 / 1050 300 / 300 Output Total 3500 / 4200 3150 / 3750 1150 / 1150 Balance -2860 / -3460 -2100 / -2700 -850 / -850 Lab / Micro Data Result Diagrams: 03/01/22 05:51 03/01/22 05:51 Labs: Laboratory Results - last 24 hr 02/28/22 05:37: Sodium 141, Potassium 3.6, Chloride 85 L, Carbon Dioxide > 45.0 H*, Anion Gap TNP, BUN 46 H, Creatinine 0.62 L, Estim Creat Clear Calc 58.94, Est GFR (MDRD) Af Amer 164, Est GFR (MDRD) Non-Af 135, BUN/Creatinine Ratio 73.8 H, Glucose 157 H, Calcium 9.1 03/01/22 05:51: WBC 9.4, RBC 3.48 L, Hgb 10.2 L, Hct 35.1 L, MCV 100.9 H, MCH 29.3, MCHC 29.1 L, RDW Std Deviation 51.7 H, RDW Coeff of Earle 13.9, Plt Count 192, MPV 9.7, Immature Gran % (Auto) 0.900, Neut % (Auto) 81.9 H, Lymph % (Auto) 8.2 L, Marion % (Auto) 8.4, Eos % (Auto) 0.4, Baso % (Auto) 0.2, Absolute Neuts (auto) 7.7, Absolute Lymphs (auto) 0.77 L, Nucleated RBC % 0 Micro: Microbiology 02/24/22 16:45 Blood Culture (Wb) - Anticubital Left Blood Culture - Preliminary No growth in 48 hours. 02/24/22 17:15 Blood Culture (Wb) - Right Hand Blood Culture - Preliminary No growth in 48 hours. 02/25/22 00:00 Nasal Secretion SARS-CoV-2 Antigen (Rapid) - Final Physical Exam Const alert and no apparent distress HEENT HEENT Narrative: Skin tear on right cheek. Resp normal respiratory effort, no retractions, no use of accessory muscles and clear to auscultation bilaterally Cardio regular rate, regular rhythm, S1 normal heart sound and S2 normal heart sound GI GI Narrative: Obese. Soft nondistended nontender Extremity General Extremity: edema bilateral lower extremity Details: moderate Assessment & Plan Assessment/Plan (1) Acute hypercapnic respiratory failure: PLAN: from acute COPD exacerbation and CHF and YENI Improved Patient typically is on 8 L of oxygen at home and uses CPAP, currently on 6liters. HCO3>45, BN peptide 77.9 CODE STATUS is DNR CCA, confirmed with family Pulmonology consult On furosemide and acetazolamide Patient to use AVAPS with sleep and naps (2) Metabolic encephalopathy: PLAN: overall improved but waxes and wanes likely multifactorial Avoid potentiating medications. PLAN: Plan 3. Hypokalemia, Improved 4. Recent urethral bleeding, history of BPH ,status post continue bladder irrigation in [facility], resolved Continue finasteride and Flomax 5. Anemia, hemoglobin appears stable compared to previous, history of recent bleeding 6. Chronic atrial fibrillation, currently in normal sinus rhythm, with first-degree AV block, QTC is 451 Continue oral metoprolol Not on anticoagulation chronically for bleeding issues. Has not been on anticoagulation at least since January 2021. 7. DVT prophylaxis?Lovenox subcu 6. CODE STATUS DNR CCA, no intubation Disposition: TBD. Family has met with hospice on the third and they want the patient to get stronger and go to a half-way facility and then when he strong enough, then to go to the hospice. Reaffirmed with the patient's family that they would want him getting better and going to to rehab. Palliative care, rather than hospice, upon discharge would seem more appropriate, unless his condition changes. Charges/Coding Visit Charges Inpatient E&M: 03498 Subs Hosp L2
[2022-03-01 07:18] LABS: BUN 48 mg/dL (7-18); BUN/Creat Ratio 63.4 RATIO (10-20); Calcium,Total 8.9 mg/dL (8.5-10.1); Carbon Dioxide > 45.0 mmol/L (21.0-32.0); Chloride 81 mmol/L (98-107); Creatinine, Serum 0.76 mg/dL (0.70-1.30); EST Glomerular Filtration Rate 108 mL/min (>60); Est Glom Filt Rate - Afr Amer 131 mL/min (>60); Estimated Creatinine Clearance 58.94 ml/min; Glucose 117 mg/dL (74-106); Potassium 3.1 mmol/L (3.5-5.1); Sodium Level 139 mmol/L (136-145)
--- NOTE | 2022-03-01 07:25 | PCM.PN.INT ---
Assessment & Plan Assessment/Plan (1) Acute on chronic respiratory failure with hypoxia and hypercapnia: PLAN: Plan RECOMMENDATIONS: 1. Continue AVAPS with targeted tidal volume of 450 as needed and with sleep 2. Continue Lasix at every 8 hours with daily Diamox 3. Continue scheduled bronchodilators. Discontinue steroids 4. Encourage incentive spirometer use and mobilize patient as tolerated. 5. Continue appropriate DVT prophylaxis. 6. Continue to discuss goals of therapy 7. Agree with DNR/DNI. Hold on ICU transfer given CODE STATUS and hospice discussions IMPRESSIONS: 1. Acute on chronic combined respiratory failure The patient has known end-stage COPD and chronic hypoxemic respiratory failure, with what appears to be a baseline oxygen requirement of 5 to 6 L/min. The patient is already on maximum triple therapy inhaler regimen at his baseline. He has been compliant, per report, with the aforementioned medications. His symptoms, radiographic findings and response to Lasix suggest the possible implication of heart failure with preserved ejection fraction. Diuresis will be maintained as patient appears to be tolerating this well from a renal function perspective. Low clinical suspicion for COPD exacerbation. Patient currently off of steroids, but delirium continues to be an issue. Anticipate patient will require continued diuresis if remains aggressive. Potential discharge to palliative care if able to stabilize given recurrent admissions. Family with poor insight into patient's overall prognosis as patient's mentation does appear to be better during the day with family present. 2. Obstructive sleep apnea The patient regularly utilizes nocturnal AutoPap therapy, for which he has been compliant with its use according to his last pulmonary office visit note. However, given CO2 retention, will transition to noninvasive ventilation with AVAPS. This will likely need to be continued at discharge. Will reassess as patient gets closer to discharge. 3. Morbid obesity/anemia/BPH/GERD/paroxysmal atrial fibrillation Complicates care, management, recovery and prognosis. Continue home medications as indicated. Family very resistant to transition to hospice therapy during family meeting previously. 4. Metabolic encephalopathy Patient with significant delirium overnight. Patient did appear to be improving during the day. Cessation of steroids does not appear to have a significant improvement in mentation. This note was generated with [employer] dictation software. It may contain incorrect words, spelling, and punctuation that were not noted in checking the note before signing. Subjective Subjective Patient did okay from a hemodynamic standpoint overnight. Unfortunately, delirium continues to be an issue at night. Family was called into stay with the patient which really helped. Patient remains confused during my evaluation and moving around the bed. Patient was keeping the BiPAP in place though. Nursing is reporting patient is much better during the daytime and directable. Objective Data Objective Data Vital Signs: Vital Signs Temp Pulse Resp BP Pulse Ox O2 Del Method O2 Flow Rate 36.8 C 86 20 H 124/79 H 95 High Flow 6 03/01/22 02:00 03/01/22 06:48 03/01/22 06:48 03/01/22 02:00 03/01/22 06:48 02/28/22 20:00 02/28/22 20:00 FiO2 40 03/01/22 06:48 Oxygen Flow Rate (L/min) 6 Oxygen Delivery Method High Flow Weight: 124 kg Body Mass Index (BMI) 48.9 Intake & Output: Intake and Output for Last 24 Hours 02/27/22 02/28/22 03/01/22 23:59 23:59 23:59 Intake Total 640 / 740 1050 / 1050 300 / 300 Output Total 3500 / 4200 3150 / 3750 1150 / 1150 Balance -2860 / -3460 -2100 / -2700 -850 / -850 Lab / Micro Data Attestation: I reviewed the patient's lab results. Result Diagrams: 03/01/22 05:51 03/01/22 05:51 Labs: Laboratory Results - last 24 hr 03/01/22 05:51: WBC 9.4, RBC 3.48 L, Hgb 10.2 L, Hct 35.1 L, MCV 100.9 H, MCH 29.3, MCHC 29.1 L, RDW Std Deviation 51.7 H, RDW Coeff of Earle 13.9, Plt Count 192, MPV 9.7, Immature Gran % (Auto) 0.900, Neut % (Auto) 81.9 H, Lymph % (Auto) 8.2 L, Robertson % (Auto) 8.4, Eos % (Auto) 0.4, Baso % (Auto) 0.2, Absolute Neuts (auto) 7.7, Absolute Lymphs (auto) 0.77 L, Nucleated RBC % 0 03/01/22 05:51: Sodium 139, Potassium 3.1 L, Chloride 81 L, Carbon Dioxide > 45.0 H*, Anion Gap TNP, BUN 48 H, Creatinine 0.76, Estim Creat Clear Calc 58.94, Est GFR (MDRD) Af Amer 131, Est GFR (MDRD) Non-Af 108, BUN/Creatinine Ratio 63.4 H, Glucose 117 H, Calcium 8.9 Micro: Microbiology 02/24/22 16:45 Blood Culture (Wb) - Anticubital Left Blood Culture - Preliminary No growth in 48 hours. 02/24/22 17:15 Blood Culture (Wb) - Right Hand Blood Culture - Preliminary No growth in 48 hours. 02/25/22 00:00 Nasal Secretion SARS-CoV-2 Antigen (Rapid) - Final Physical Exam Const Constitutional Narrative: RASS +1. Morbidly obese. On BiPAP therapy with good synchrony. Actively moving around the bed frequently General Appearance: Negative for in distress or lethargic HEENT normocephalic Eyes Eyes Narrative: Significant bruising of the right eye. No laceration appreciated. Able to open eyes to voice. Appears to be improving. Neck full ROM Chest Chest: abnormal inspection of the chest increased A-P diameter and symmetrical chest wall rise Resp Effort and Inspection: prolonged expiratory phase; Negative for actively coughing or uses accessory muscles Auscultation: rales and diminished lung sounds; Negative for rhonchi or wheezes Cardio S1 normal heart sound, S2 normal heart sound, no murmurs, no rub and no gallops Rhythm: abnormal rhythm irregularly irregular GI normal to inspection, nondistended, normoactive bowel sounds GI Narrative: Exam somewhat limited given body habitus Extremity Extremity Narrative: Anasarca continues to improve. General Extremity: clubbing and edema Skin Skin Narrative: Multiple bruises noted in various stages of healing. Neuro moves all extremities and no focal motor deficits Psych Activity / Motor Behavior: restless Mood & Affect: flat affect Charges/Coding Visit Charges Inpatient E&M: 27752 Subs Hosp L3
[2022-03-01] MEDS: Potassium Chloride 10mEq/100mL 10 MEQ/100 ML IV.SOLN. 100 MEQ IV BOLUS ×4 (08:42→13:51)
[2022-03-01] MEDS: Pantoprazole Sodium 20 MG Tablet PO (08:49)
[2022-03-01] MEDS: Nystatin Powder 15gm Bottle 1 APPLIC TOPICAL ×2 (08:49→21:24)
[2022-03-01] MEDS: Potassium Chloride Oral Tablet 20 MEQ PO (08:49)
[2022-03-01] MEDS: Aspirin E.C. 81 MG Tablet PO (08:49)
[2022-03-01] MEDS: Metoprolol Tartrate 25 MG Tablet PO (08:49)
[2022-03-01] MEDS: Finasteride 5 MG Tablet PO (08:50)
--- NOTE | 2022-03-01 10:47 | NURSING ---
0930 rt eye skin tear bleeding,cleaned up and drsg applied. DR Jessie Paige RN
[2022-03-01] MEDS: AcetaZOLAMIDE 500 MG/10 ML Vial IV (13:40)
--- NOTE | 2022-03-01 18:46 | NURSING ---
1700 Resp called to restart AVAPS- mask placed on face- patient tolerating well. pox 98% on AVAPS Chris Paige RN
--- NOTE | 2022-03-01 21:43 | NURSING ---
Pt laying on his side in bed, refusing to lay on back. Refusing to take medication, ripping pills out of this nurse's hand, refusing to cooperate.
--- NOTE | 2022-03-01 22:10 | NURSING ---
Pt still being uncooperative, pulled dressing off arm, skin tear bleeding. New dressing applied. Pt grabbing at staff, being combative. Notified pt's and asked if she would be able to come in and stay with him. is reluctant about coming in and asked can you give him a sleeping pill or something? Informed we will talk to the physician.
[2022-03-01] MEDS: morphine (oral solution) 10MG/0.5ML Syringe 10 MG SL (23:30)
[2022-03-02] VITALS (20 sets, daily range): BP systolic 107–140; BP diastolic 66–85; PULSE 78–96; RESP 14–26; TEMP 36.5–37.3; O2SAT 92–100
[2022-03-02] MEDS: morphine (oral solution) 10MG/0.5ML Syringe 5 MG SL (04:37)
--- NOTE | 2022-03-02 04:40 | NURSING ---
Pt pulled out IV. Pulled bipap mask off and broke it. Nasal cannula placed on pt, respiratory called. [address] a new IV x4 times with no success. One-time SL roxinal given.
--- NOTE | 2022-03-02 05:00 | CPS ---
Pt broke mask to BiPAP machine. Placed on 6lpm nasal cannula
--- NOTE | 2022-03-02 05:27 | NURSING ---
Pt is still restless and uncooperative after one-time roxinal. Pt pulling oxygen off and trying to sit up/ get out of bed. manufacturing engineer paint taking turns sitting with him. Nursing supervisor blast furnace notified. Will notify hospitalist. Voicemail left for pt's about coming in as early as possible since pt is more cooperative with family at bedside.
[2022-03-02] MEDS: Ipratropium/Albuterol Sulfate 3 ML AMPUL.NEB INHALATION ×4 (07:05→19:34)
--- NOTE | 2022-03-02 07:16 | PCM.PN.INT ---
Assessment & Plan Assessment/Plan (1) Acute on chronic respiratory failure with hypoxia and hypercapnia: PLAN: Plan RECOMMENDATIONS: 1. Obtain arterial blood gas. 2. If the patient is retaining CO2, place him again back on AVAPS. 3. I would avoid sedating medications, including opiate pain medications. 4. Continue scheduled bronchodilators. 5. Continue Lasix as tolerated by hemodynamics and renal function. IMPRESSIONS: 1.??Acute on chronic combined respiratory failure The patient has known end-stage COPD and chronic hypoxemic respiratory failure, with what appears to be a baseline oxygen requirement of 5 to 6 L/min.? The patient is already on maximum triple therapy inhaler regimen at his baseline.? He has been compliant, per report, with the aforementioned medications.?His symptoms, radiographic findings and response to Lasix suggest the possible implication of heart failure with preserved ejection fraction. Therefore, plan to continue diuretics as tolerated by hemodynamics and renal function. In addition, scheduled bronchodilators will be continued. The patient appears more encephalopathic this morning, likely secondary to respiratory depression induced by opiate pain medications. Accordingly, recommend checking arterial blood gas and placing the patient back again on noninvasive positive pressure ventilatory support. I would strongly advise against the use of these medications in the future, unless the patient were to decide to go hospice, which would certainly be appropriate given the end-stage nature of his disease and frequent hospitalizations. 2.??Obstructive sleep apnea The patient regularly utilizes nocturnal AutoPap therapy, for which he has been apparently compliant with its use according to his last pulmonary office visit note. Plan to continue nocturnal AVAPS therapy as ordered. 3.??Morbid obesity/anemia/BPH/GERD/paroxysmal atrial fibrillation Complicates care, management, recovery and prognosis.? Continue home medications as indicated. This note was generated with [employer] dictation software. It may contain incorrect words, spelling, and punctuation that were not noted in checking the note before signing. Subjective Subjective The patient was seen and examined at the bedside this morning. Events from the last 24 hours have been reviewed. The patient is currently afebrile, hemodynamically stable and maintaining appropriate oxygen saturations on 6 L/min via nasal cannula. The patient is currently documented to be overall net -15 L for the hospitalization. The patient is quite lethargic this morning. It appears he was given Roxanol last night and again this morning. Objective Data Objective Data The patient's most recent lab work, culture data and imaging studies have all been personally reviewed. Surface echocardiogram from January 2022 demonstrated moderate concentric LVH with an ejection fraction of 65%. Right ventricular systolic pressure was estimated to be 41 mmHg. Vital Signs: Vital Signs Temp Pulse Resp BP Pulse Ox O2 Del Method O2 Flow Rate 97.7 F L 78 20 H 136/68 H 97 Nasal Cannula 6 03/02/22 06:00 03/02/22 06:00 03/02/22 06:00 03/02/22 06:00 03/02/22 06:00 03/02/22 06:00 03/02/22 06:00 FiO2 40 03/02/22 02:38 Oxygen Flow Rate (L/min) 6 Oxygen Delivery Method Nasal Cannula Weight: 266 lb 15.677 oz Body Mass Index (BMI) 48.9 Intake & Output: Intake and Output for Last 24 Hours 02/28/22 03/01/22 03/02/22 23:59 23:59 23:59 Intake Total 1050 / 1050 1220 / 1220 Output Total 3150 / 3750 4900 / 4900 Balance -2100 / -2700 -3680 / -3680 Lab / Micro Data Attestation: I reviewed the patient's lab results. Result Diagrams: 03/01/22 05:51 03/02/22 08:14 Labs: Laboratory Results - last 24 hr 03/01/22 05:51: Sodium 139, Potassium 3.1 L, Chloride 81 L, Carbon Dioxide > 45.0 H*, Anion Gap TNP, BUN 48 H, Creatinine 0.76, Estim Creat Clear Calc 58.94, Est GFR (MDRD) Af Amer 131, Est GFR (MDRD) Non-Af 108, BUN/Creatinine Ratio 63.4 H, Glucose 117 H, Calcium 8.9 Micro: Microbiology 02/24/22 16:45 Blood Culture (Wb) - Anticubital Left Blood Culture - Preliminary No growth in 48 hours. 02/24/22 17:15 Blood Culture (Wb) - Right Hand Blood Culture - Preliminary No growth in 48 hours. 02/25/22 00:00 Nasal Secretion SARS-CoV-2 Antigen (Rapid) - Final Physical Exam Const no apparent distress General Appearance: lethargic Nutritional Appearance: morbidly obese HEENT normocephalic and head/scalp atraumatic Eyes PERRL Neck supple General: trachea midline Chest inspection of chest normal Resp Auscultation: rales and diminished lung sounds Cardio S1 normal heart sound and S2 normal heart sound Rhythm: abnormal rhythm GI normal to inspection, nondistended, normoactive bowel sounds Extremity General Extremity: edema Skin no rashes or lesions noted Neuro Neuro Narrative: Opens eyes briefly to verbal stimulation and falls quickly back to sleep. Psych Mood & Affect: flat affect Charges/Coding Visit Charges Inpatient E&M: 44951 Subs Hosp L3
[2022-03-02 08:54] LABS: BUN 32 mg/dL (7-18); BUN/Creat Ratio 61.1 RATIO (10-20); Calcium,Total 8.8 mg/dL (8.5-10.1); Carbon Dioxide > 45.0 mmol/L (21.0-32.0); Chloride 85 mmol/L (98-107); Creatinine, Serum 0.52 mg/dL (0.70-1.30); EST Glomerular Filtration Rate 165 mL/min (>60); Est Glom Filt Rate - Afr Amer 200 mL/min (>60); Estimated Creatinine Clearance 58.94 ml/min; Glucose 107 mg/dL (74-106); Potassium 3.3 mmol/L (3.5-5.1); Sodium Level 141 mmol/L (136-145)
[2022-03-02] MEDS: Nystatin Powder 15gm Bottle 1 APPLIC TOPICAL ×2 (11:44→20:58)
--- NOTE | 2022-03-02 13:49 | CHAPLAIN ---
Type of Pastoral Visit _x__ Initial Visit ___ Follow-up Visit ___ On-call Visit ___ General Patient Visit ___ Spiritual Assessment ___ Family Conference ___ Bereavement ___ Rapid Response ___ Code Blue ___ Other (describe below) Pastoral Care Referral From ___ Patient _x__ Family _x__ Nurse ___ Physician ___ Clearance Coordinator ___ Carton Forming Machine Operator ___ Other (describe below) Sacrament/Intervention _x__ Active listening ___ Anointing ___ Shinto ___ Bereavement ___ Communion ___ Sonia exploration ___ ___ Life review ___ Prayer ___ Reconciliation ___ Sacrament of Sick _x__ Supportive presence ___ Wedding ___ Other (describe below) Pastoral Comments patient is on bi-pap and is sleeping at this time; spouse, two children, and three grandchildren are in the room sitting around the bed; spouse and son interact with this 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
--- NOTE | 2022-03-02 14:45 | CASEMGMT ---
Addendum entered by Aide Jacobo 03/02/22 16:24: Social work SW met with inorganic chemist who states they have met with pt's son. He did not sign papers and does not want pt assessed for IPU. ESTHELA Bell Addendum entered by Aide Jacobo 03/02/22 16:11: Pt son meeting with [facility] hospice. Pt son requesting SW talk to the [facility] to see if they will accept pt for skilled level of care. SW called Verónica at [facility] and they will review clinicals and call SW in the morning. Son updated. ESTHELA Bell Original Note: Social Work SW met with pt son to discuss pt discharge plan. Pt continues to be restless at night, take bipap off, pt removed IVs. Pt currently on bipap and per nursing this needs to remain on at this time. Explained to pt son that pt cannot go to a skilled facility for rehab if he requires a bipap and pt would need to be able to actively participate with therapy. ROBBY did broach topic of hospice again with pt and that per physician, pt may be apporpriate for IPU. SW attempted to explain IPU and that comfort measures would be followed. Pt son is agreeable to meet with hospice again. Phone call to Camilla at Hospice and requested hospice meet with family again to discuss IPU. Hospice to meet with pt family today. ESTHELA Bell
[2022-03-02 15:00] LABS: Base Excess 25 mmol/L (-2 to +2); Bicarbonate 52.9 mmol/L (22-26); Blood Gas Specimen Type ART; O2 Delivery Device Cannula; PO2 153 mmHG (75-100); SITE L Brach; SO2 99 % (95-99); Total Carbon Dioxide > 50 mmol/L; pCO2 124.8 mmHg (35-45); pH 7.24 (7.35-7.45)
--- NOTE | 2022-03-02 15:47 | PN.HOSP_ITS ---
Subjective Subjective Mr. Powers is a 72-year-old male who presented with lethargy for 2 days on 02/24/2022 and having history of end-stage COPD, YENI on CPAP, and chronic heart failure with preserved ejection fraction. He evidently recently had a extended stay at [facility]. On admission he was hypoxic on 6 L of supplemental oxygen at 88% and had an ABG with a pH of 7.29 a PCO2 of 106.2 and a PO2 of 96 on 50% BiPAP. He has been on and off BiPAP since admission and appears that pulmonology had repeated an ABG this morning showing a pH of 7.24 a PCO2 of 124.8 and a PO2 of 153. Given these findings he was restarted back on BiPAP however he is not wearing this on a consistent basis and has pulled out his IVs and refusing medications intermittently however he remains confused. A VBG was obtained on 02/25/2022 and showed a pH of 7.52 and the BiPAP was discontinued at that time however he has been intermittently on this and off of this throughout his entire stay. There has been some discussion about hospice and the current plan is for the patient to improve enough to go to a skilled facility and then be discharged with hospice at that time however I do not feel clinically upon review of the data that he will be able to get to that point. Hospice is going to rediscuss inpatient hospice with the patient's family later today as he has been requiring intermittent Roxanol through the night. The patient has had to nursing repeatedly throughout his hospital course that he just wants to . Objective Data Objective Data Vital Signs: Vital Signs Temp Pulse Resp BP Pulse Ox O2 Del Method O2 Flow Rate 97.8 F 84 22 H 140/69 H 100 Bi-pap 6 03/02/22 12:38 03/02/22 12:38 03/02/22 12:38 03/02/22 12:38 03/02/22 12:38 03/02/22 14:41 03/02/22 09:59 FiO2 40 03/02/22 02:38 Oxygen Flow Rate (L/min) 6 Oxygen Delivery Method Bi-pap Weight: 121.1 kg Body Mass Index (BMI) 48.9 Intake & Output: Intake and Output for Last 24 Hours 02/28/22 03/01/22 03/02/22 23:59 23:59 23:59 Intake Total 1050 / 1050 1220 / 1220 Output Total 3150 / 3750 4900 / 4900 352 / 352 Balance -2100 / -2700 -3680 / -3680 -352 / -352 Medical Nutrition Assessment Dietitian: Malnutrition Criteria Met Start: 03/02/22 13:27 Freq: Status: Active Protocol: Document 03/02/22 13:27 [facility] (Rec: 03/02/22 13:27 [facility] [id number]) Nutrition Malnutrition Evidence of Malnutrition Exists Yes Malnutrition (severe): Acute Illness/Injury Evidenced By Suboptimal Energy Intake ( Severe),Weight Loss (Severe) Intake Problem Inadequate Oral Intake Status Inactive Problem Clinical Problem Acute Disease or Injury Related Malnutrition Etiology related to inadequate energy intake and respiratory issues requiring bipap prn Signs/Symptoms as evidenced by pt po intake meeting <50% of est nutritional needs and 9.3% wt loss since adm Status Active Problem Unintended Weight Loss Status Inactive Problem Recommendation Dietitian Recommendations/Changes Will liberalize diet to regular (w/ fluid restriction per MD) d/t signs and symptoms of malnutrition - once po diet resumes, can resume therapeutic diet prn Will order 120mL Ensure Enlive TID with medpass for increased nutrition if consumed Will provide ensure pudding w/ lunch and dinner for increased nutrition if consumed. Lab / Micro Data Result Diagrams: 03/01/22 05:51 03/02/22 08:14 Labs: Laboratory Results - last 24 hr 03/02/22 08:14: Sodium 141, Potassium 3.3 L, Chloride 85 L, Carbon Dioxide > 45.0 H*, Anion Gap TNP, BUN 32 H, Creatinine 0.52 L, Estim Creat Clear Calc 58.94, Est GFR (MDRD) Af Amer 200, Est GFR (MDRD) Non-Af 165, BUN/Creatinine Ratio 61.1 H, Glucose 107 H, Calcium 8.8 Micro: Microbiology 02/24/22 17:15 Blood Culture (Wb) - Right Hand Blood Culture - Final No growth in 5 days. 02/24/22 16:45 Blood Culture (Wb) - Anticubital Left Blood Culture - Final No growth in 5 days. 02/25/22 00:00 Nasal Secretion SARS-CoV-2 Antigen (Rapid) - Final ABG Data ABG results: ABG 03/02/22 10:26 Specimen Type ART Sample Site L Brach pH 7.24 L Bicarbonate Actual 52.9 H Total CO2 > 50 Base Excess 25 H O2 Saturation 99 ABG pCO2 124.8 H* ABG pO2 153 H O2 Delivery Device Cannula Liter Flow 6.0 Crit Call To/Read Back Yes Blood Gas Notified Whom brown Physical Exam Const Constitutional Narrative: Very sleepy older white male lying in bed, patient appears much older than stated age, patient does follow commands but there is limited interaction, difficulty to tell how oriented the patient is at this time HEENT head/scalp atraumatic, moist oral mucous membranes and oropharynx normal HEENT Narrative: Edentulous, Mallampati is 3-4 Resp normal respiratory effort, no retractions and no use of accessory muscles Resp Narrative: Diffusely diminished, no signs of respiratory extremis at this time however patient is quite sleepy Auscultation: Negative for crackles, rales, rhonchi or wheezes Cardio regular rate, regular rhythm, S1 normal heart sound, S2 normal heart sound, no murmurs, no rub, no gallops, no clicks and no JVD GI normal to inspection, nondistended, normoactive bowel sounds, soft to palpation, non-tender and non-distended Extremity no clubbing, cyanosis or edema Neuro moves all extremities and no focal motor deficits Psych Psych Narrative: Flat, mood seems depressed, limited interaction with patient unable to ascertain whether this is related to his mental status or his baseline mood Assessment & Plan Assessment/Plan (1) Metabolic encephalopathy: (2) CO2 narcosis: (3) Acute and chronic respiratory failure with hypercapnia: (4) Acute on chronic respiratory failure with hypoxia and hypercapnia: (5) Hypokalemia: PLAN: Plan Acute hypoxic on chronic hypoxic and hypercapnic respiratory failure secondary to acute exacerbation of COPD/HFpEF -Baseline oxygen requirement is 5 to 6 L -Patient already on triple therapy inhalers -Patient has diuresed well being negative over 15 L for the hospitalization -Continue current IV diuresis if able--> patient has pulled his IV out may need to switch to IM Lasix depending on patient/family conversation with hospice later today -Continue bronchodilators -Continue as needed Roxanol but will discontinue if patient does not pursue hospice as it is likely that this may have contributed to his worsening hypercapnia today -Appreciate pulmonary input -Continue BiPAP -Hospice meeting with family later--> patient would likely qualify for the IPU given symptom management requirements Metabolic/toxic encephalopathy -Likely related to hypercapnia -Discontinue Roxanol patient is not going to proceed with hospice -avoid sedating medications if patient does not proceed with hospice Hypokalemia -Better today at 3.3 from 3.1 yesterday -Repeat potassium -Recheck in a.m. Recent urethral bleeding -Status post continuous bladder irrigation a [facility] -Current bleeding -Tinea finasteride and Flomax YENI -Patient wears CPAP with 9 cm of water at home -We will continue noninvasive ventilation at this time Chronic macrocytic anemia -Patient is also on iron supplementation at home -Continue -Hemoglobin is stable -CBC in a.m. Chronic compensated diastolic heart failure -Continue home Lasix COPD Gold stage IV -Treatment for exacerbation as noted above -Follows with Dr. Shah as an outpatient -Oxygen saturations 88 to 92% are okay given his chronic hypercapnia GERD -Continue omeprazole Hypertension -Continue metoprolol History of atrial fibrillation -Patient is not anticoagulated secondary to previous bleeding -Continue beta-robert Morbid obesity -BMI is 49.8 -Recommend weight loss -Complicates treatment, prognosis, outcomes DVT prophylaxis -Lovenox 40 mg daily -SCDs CODE STATUS -DNR CCA without intubation -Hospice meeting with family later today Charges/Coding Visit Charges Inpatient E&M: 07945 Subs Hosp L2
[2022-03-02] MEDS: Furosemide 40 MG/4 ML Vial IV ×2 (18:10→23:13)
[2022-03-02] MEDS: 0.9% Saline Lock 10 ML Syringe IV (18:13)
[2022-03-02] MEDS: Metoprolol Tartrate 5 MG/5 ML Vial 2.5 MG IV ×2 (18:33→23:15)
[2022-03-02] MEDS: Potassium Chloride 10mEq/100mL 10 MEQ/100 ML IV.SOLN. 50 MEQ IV BOLUS ×3 (18:42→23:17)
--- NOTE | 2022-03-02 21:32 | NURSING ---
This RN called , Isela, to give update and encourage family to choose hospice for their loved one. Let Isela know that I have taken care of Cuate over the past couple years several times and enjoy caring for him. He would be more comfortable on hospice. He will not have to wear all the monitors he has to wear at the hospital. He can spend quality time with family. Isela said not to tell the patient but the family's current thought is they will choose to send him to in patient hospice tomorrow. They don't think they could take care of him at home. This RN thanked Isela for her considering of hospice.
[2022-03-03] VITALS (10 sets, daily range): BP systolic 117–120; BP diastolic 68–90; PULSE 78–97; RESP 14–20; TEMP 36.5–36.8; O2SAT 94–100
[2022-03-03] MEDS: Potassium Chloride 10mEq/100mL 10 MEQ/100 ML IV.SOLN. 50 MEQ IV BOLUS (00:58)
[2022-03-03] MEDS: Metoprolol Tartrate 5 MG/5 ML Vial 2.5 MG IV (05:24)
[2022-03-03] MEDS: Furosemide 40 MG/4 ML Vial IV (05:24)
[2022-03-03] MEDS: 0.9% Saline Lock 10 ML Syringe IV ×2 (05:27→05:34)
--- NOTE | 2022-03-03 05:34 | NURSING ---
Pt refusing to wear telemetry.
[2022-03-03] MEDS: Ipratropium/Albuterol Sulfate 3 ML AMPUL.NEB INHALATION ×3 (07:15→14:08)
[2022-03-03 07:20] LABS: Absolute Neutrophil Count 10.4 X10^3/uL (2.0-7.7); Basophil# 0.02 X10^3/uL; Basophil% 0.2 % (0-1); Eosinophil# 0.18 X10^3/uL; Eosinophils% 1.5 % (0-5); Hematocrit 38.5 % (40-54); Hemoglobin 11.1 g/dL (13.0-16.5); Lymphocyte % 6.6 % (19-41); Mean Corp Hgb Conc 28.8 g/dL (32-36); Mean Corpuscular Volume 100.5 fL (80-94); Monocyte# 0.69 X10^3/uL; Monocyte% 5.7 % (0-10); NRBC Flagged by Analyzer 0 % (0-5); Platelet Count 201 K/mm3 (150-450); RBC Distribution Width CV 13.9 % (11.6-14.6); RBC Distribution Width SD 51.7 fl (35.1-43.9); Red Blood Count 3.83 M/mm3 (4.6-6.2); White Blood Count 12.2 K/mm3 (4.4-11.0)
[2022-03-03 08:02] LABS: BUN 31 mg/dL (7-18); BUN/Creat Ratio 52.8 RATIO (10-20); Calcium,Total 9.2 mg/dL (8.5-10.1); Carbon Dioxide > 45.0 mmol/L (21.0-32.0); Chloride 84 mmol/L (98-107); Creatinine, Serum 0.59 mg/dL (0.70-1.30); EST Glomerular Filtration Rate 145 mL/min (>60); Est Glom Filt Rate - Afr Amer 175 mL/min (>60); Estimated Creatinine Clearance 58.94 ml/min; Glucose 96 mg/dL (74-106); Potassium 3.5 mmol/L (3.5-5.1); Sodium Level 140 mmol/L (136-145)
--- NOTE | 2022-03-03 09:08 | CPS ---
Sent picture of ABG results to Dr Rosales.
[2022-03-03 09:36] LABS: Allen Test Positive; Base Excess 28 mmol/L (-2 to +2); Bicarbonate 53.4 mmol/L (22-26); Blood Gas Specimen Type ART; FI02 40; O2 Delivery Device BiPAP; PO2 82 mmHG (75-100); SITE L Brach; SO2 94 % (95-99); Total Carbon Dioxide > 50 mmol/L; pH 7.37 (7.35-7.45)
--- NOTE | 2022-03-03 09:47 | PN.CC_ITS ---
Assessment & Plan Assessment/Plan (1) Acute on chronic respiratory failure with hypoxia and hypercapnia: PLAN: Plan RECOMMENDATIONS: 1. Continue AVAPS, at a minimum, with naps and nightly. 2. Okay to discontinue aggressive diuretics at this time. 3. Recommend cautious use of any sedating medications. 4. Continue scheduled bronchodilators. 5. Ongoing goals of care discussions. IMPRESSIONS: 1.??Acute on chronic combined respiratory failure The patient has known end-stage COPD and chronic hypoxemic respiratory failure, with what appears to be a baseline oxygen requirement of 5 to 6 L/min.? The patient is already on maximum triple therapy inhaler regimen at his baseline.? He has been compliant, per report, with the aforementioned medications.?His symptoms, radiographic findings and response to Lasix suggest the possible implication of heart failure with preserved ejection fraction. The patient has been aggressively diuresed. Plan to continue scheduled bronchodilators. I would strongly advise against the use of opiate pain medications, unless the patient were to decide to go hospice, which would certainly be appropriate given the end-stage nature of his disease and frequent hospitalizations. 2.??Obstructive sleep apnea The patient regularly utilizes nocturnal AutoPap therapy, for which he has been apparently compliant with its use according to his last pulmonary office visit note. Plan to continue nocturnal AVAPS therapy as ordered. 3.??Morbid obesity/anemia/BPH/GERD/paroxysmal atrial fibrillation Complicates care, management, recovery and prognosis.? Continue home medications as indicated. This note was generated with [employer] dictation software. It may contain incorrect words, spelling, and punctuation that were not noted in checking the note before signing. Subjective Subjective The patient was seen and examined at the bedside this morning. Events from the last 24 hours have been reviewed. The patient is currently afebrile, hemodynamically stable and maintaining appropriate oxygen saturations on AVAPS with an FiO2 of 40%. The patient is more alert today. Family is present at the bedside. They are still trying to make a decision regarding disposition to nursing facility versus hospice care. Objective Data Objective Data The patient's most recent lab work, culture data and imaging studies have all been personally reviewed. Surface echocardiogram from January 2022 demonstrated moderate concentric LVH with an ejection fraction of 65%. Right ventricular systolic pressure was estimated to be 41 mmHg. Vital Signs: Vital Signs Temp Pulse Resp BP Pulse Ox O2 Del Method O2 Flow Rate 97.7 F L 89 20 H 117/90 H 100 Bi-pap 40 03/03/22 05:38 03/03/22 08:50 03/03/22 08:50 03/03/22 05:24 03/03/22 08:50 03/03/22 07:15 03/02/22 17:53 FiO2 40 03/03/22 08:50 Oxygen Flow Rate (L/min) 40 Oxygen Delivery Method Bi-pap Weight: 261 lb 0.437 oz Body Mass Index (BMI) 48.9 Intake & Output: Intake and Output for Last 24 Hours 03/01/22 03/02/22 03/03/22 23:59 23:59 23:59 Intake Total 1220 / 1220 200 / 200 284.17 / 284.17 Output Total 4900 / 4900 702 / 1302 1350 / 1350 Balance -3680 / -3680 -502 / -1102 -1065.83 / -1065.83 Medical Nutrition Assessment Dietitian: Malnutrition Criteria Met Start: 03/02/22 13:27 Freq: Status: Active Protocol: Document 03/02/22 13:27 [facility] (Rec: 03/02/22 13:27 [facility] [id number]) Nutrition Malnutrition Evidence of Malnutrition Exists Yes Malnutrition (severe): Acute Illness/Injury Evidenced By Suboptimal Energy Intake ( Severe),Weight Loss (Severe) Intake Problem Inadequate Oral Intake Status Inactive Problem Clinical Problem Acute Disease or Injury Related Malnutrition Etiology related to inadequate energy intake and respiratory issues requiring bipap prn Signs/Symptoms as evidenced by pt po intake meeting <50% of est nutritional needs and 9.3% wt loss since adm Status Active Problem Unintended Weight Loss Status Inactive Problem Recommendation Dietitian Recommendations/Changes Will liberalize diet to regular (w/ fluid restriction per MD) d/t signs and symptoms of malnutrition - once po diet resumes, can resume therapeutic diet prn Will order 120mL Ensure Enlive TID with medpass for increased nutrition if consumed Will provide ensure pudding w/ lunch and dinner for increased nutrition if consumed. Lab / Micro Data Attestation: I reviewed the patient's lab results. Result Diagrams: 03/03/22 07:10 03/03/22 07:10 Labs: Laboratory Results - last 24 hr 03/03/22 07:10: WBC 12.2 H, RBC 3.83 L, Hgb 11.1 L, Hct 38.5 L, MCV 100.5 H, MCH 29.0, MCHC 28.8 L, RDW Std Deviation 51.7 H, RDW Coeff of Earle 13.9, Plt Count 201, MPV 10.0, Immature Gran % (Auto) 1.000 H, Neut % (Auto) 85.0 H, Lymph % (Auto) 6.6 L, [place] % (Auto) 5.7, Eos % (Auto) 1.5, Baso % (Auto) 0.2, Absolute Neuts (auto) 10.4 H, Absolute Lymphs (auto) 0.80 L, Nucleated RBC % 0 03/03/22 07:10: Sodium 140, Potassium 3.5, Chloride 84 L, Carbon Dioxide > 45.0 H*, Anion Gap TNP, BUN 31 H, Creatinine 0.59 L, Estim Creat Clear Calc 58.94, Est GFR (MDRD) Af Amer 175, Est GFR (MDRD) Non-Af 145, BUN/Creatinine Ratio 52.8 H, Glucose 96, Calcium 9.2 Micro: Microbiology 02/24/22 17:15 Blood Culture (Wb) - Right Hand Blood Culture - Final No growth in 5 days. 02/24/22 16:45 Blood Culture (Wb) - Anticubital Left Blood Culture - Final No growth in 5 days. 02/25/22 00:00 Nasal Secretion SARS-CoV-2 Antigen (Rapid) - Final ABG Data ABG results: ABG 03/02/22 03/03/22 10:26 08:56 Specimen Type ART ART Sample Site L Brach L Brach pH 7.24 L 7.37 Bicarbonate Actual 52.9 H 53.4 H Total CO2 > 50 > 50 Base Excess 25 H 28 H O2 Saturation 99 94 L O2 % 40 ABG pCO2 124.8 H* 93.0 H* ABG pO2 153 H 82 Mahesh Test Positive O2 Delivery Device Cannula BiPAP Liter Flow 6.0 Crit Call To/Read Back Yes Yes Blood Gas Notified Whom nubia wise Clinical Comments Physical Exam Const alert and no apparent distress General Appearance: on BiPAP Orientation / Consciousness: confused Nutritional Appearance: morbidly obese HEENT normocephalic and head/scalp atraumatic Eyes PERRL, EOMs intact bilaterally and conjunctivae normal Neck supple General: trachea midline Chest inspection of chest normal Resp Auscultation: rales and diminished lung sounds Cardio S1 normal heart sound and S2 normal heart sound Rhythm: abnormal rhythm GI normal to inspection, nondistended, normoactive bowel sounds Extremity General Extremity: edema Skin no rashes or lesions noted Skin Narrative: Extensive bruising over extremities Neuro moves all extremities and no focal motor deficits Psych Activity / Motor Behavior: restless Charges/Coding Visit Charges Inpatient E&M: 32264 Subs Hosp L2
--- NOTE | 2022-03-03 10:11 | CASEMGMT ---
Addendum entered by Aide Jacobo 03/03/22 11:23: Social Work Per physicians, pt is not appropriate for [facility] as this is not medically advisable. Physician did speak with pt family regarding pt condition and prognosis. Pt son requesting to speak with ROBBY. ROBBY met with Hany and Hany states he and family would like pt to go to the Inpatient Hospice Unit. Emotional support provided to pt son. Phone call to Rachelle at [facility] hospice and informed of family's decision. [facility] will visit pt today to assess for IPU. Dr. Jenkins and Dr. Rosales updated. [facility] notified to cancel referral. Plan: Inpatient Hospice Unit ESTHELA Bell Original Note: Social Work SW received call from Verónica at the [facility] who states they can take pt. ROBBY clarified with Verónica that pt is currently on Bipap and has been on this since noon yesterday and physician states it cannot be removed at this time. ROBBY also confirmed with Verónica that SNF is knowledgeable that pt has been resistant to bipap at night. Verónica confirms awareness of this and knowledge that the option of hospice has been discussed. ROBBY faxed this mornings bipap settings and lab values and requested admissions show this to medical staff and confirm they can accept pt. Return call from Verónica who states DON has reviewed information and bipap settings and they can provide care for this pt. The [facility] will have to order a bipap machine for pt prior to his admission. Physician updated. ESTHELA Bell
--- NOTE | 2022-03-03 11:49 | NURSING ---
pt broke lt great toe nail off more from previously. covered w/2 bandaids
--- NOTE | 2022-03-03 11:51 | NURSING ---
no iv access or tele as pt continues to pull off. dr wise aware
--- NOTE | 2022-03-03 13:19 | DS.PCM_ITS ---
Providers Date of Admission: 02/24/22 Date of Discharge: 03/03/22 Primary Care Physician: Dr. Juvenal Trivedi MD Consultations 02/24/22 21:05 Consult: Hospice / Palliative Care Routine Consulting Provider: [facility] Date Notified: 02/24/22 Time Notified: 21:05 02/24/22 22:49 Consult: Rock Breaker / Pulmonary Medicine Routine Consulting Provider: Yandel Shah Reason for Consult: Acute on chronic respiratory failure EMERGENT Consult: No MD Notified: Yes Date Notified: 02/25/22 Time Notified: 07:57 Method of Notification: Text Reason For Visit: RESP FAILURE Diagnosis Discharge Diagnosis (1) Acute on chronic respiratory failure with hypoxia and hypercapnia: Status: Chronic Code(s): J96.21 - Acute and chronic respiratory failure with hypoxia; J96.22 - Acute and chronic respiratory failure with hypercapnia Plan Acute hypoxic on chronic hypoxic and hypercapnic respiratory failure secondary to acute exacerbation of COPD/HFpEF -Baseline oxygen requirement is 5 to 6 L -Patient already on triple therapy inhalers -Patient has diuresed well being negative over 15 L for the hospitalization -Continue current IV diuresis if able--> patient has pulled his IV out may need to switch to IM Lasix depending on patient/family conversation with hospice later today -Continue bronchodilators -Continue as needed Roxanol but will discontinue if patient does not pursue hospice as it is likely that this may have contributed to his worsening hypercapnia today -Appreciate pulmonary input -Continue BiPAP -Hospice meeting with family later--> patient would likely qualify for the [facility] given symptom management requirements Metabolic/toxic encephalopathy -Likely related to hypercapnia -Discontinue Roxanol patient is not going to proceed with hospice -avoid sedating medications if patient does not proceed with hospice Hypokalemia -Better today at 3.3 from 3.1 yesterday -Repeat potassium -Recheck in a.m. Recent urethral bleeding -Status post continuous bladder irrigation a [facility] [place] -Current bleeding -Tinea finasteride and Flomax YENI -Patient wears CPAP with 9 cm of water at home -We will continue noninvasive ventilation at this time Chronic macrocytic anemia -Patient is also on iron supplementation at home -Continue -Hemoglobin is stable -CBC in a.m. Chronic compensated diastolic heart failure -Continue home Lasix COPD Gold stage IV -Treatment for exacerbation as noted above -Follows with Dr. Shah as an outpatient -Oxygen saturations 88 to 92% are okay given his chronic hypercapnia GERD -Continue omeprazole Hypertension -Continue metoprolol History of atrial fibrillation -Patient is not anticoagulated secondary to previous bleeding -Continue beta-robert Morbid obesity -BMI is 49.8 -Recommend weight loss -Complicates treatment, prognosis, outcomes DVT prophylaxis -Lovenox 40 mg daily -SCDs CODE STATUS -DNR CCA without intubation -Hospice meeting with family later today Medications at Discharge Home Medications albuterol sulfate 90 mcg/actuation aerosol inhaler 2 puff inhalation Q6H PRN shortness of breath or wheezing #18 grams 08/08/21 ipratropium 0.5 mg-albuterol 3 mg (2.5 mg base)/3 mL nebulization soln 3 ml inhalation Q6H PRN Shortness Of Breath 02/20/22 Hospital Course Operations None Procedures EKG and - (Chest x-ray/brain CT) Summary of Care Provided Minutes Spent on Discharge: 38 Hospital Course: Mr. Powers is a 72-year-old white male who presented to the emergency department at [facility] on 02/24/2022 with shortness of breath. The patient is well-known to this institution for acute on chronic hypoxic respiratory failure and is chronically on 6 L nasal cannula. Prior to this admission he was evidently discharged from [facility] at the end of January. Upon presentation he was noted to have some worsening shortness of breath but no fevers, change in cough or sputum production. He had been more lethargic and had difficulty eating his lunch on the day of presentation. Per documentation the patient's been seen several times in the past 2 months with a similar presentation. In the emergency department the patient was afebrile but tachypneic with a respiratory rate at 29 and an oxygen saturation of 88% on 6 L. His supplemental oxygen was increased to 8 L at that time and he had marginal improvement. His blood pressure was 104/60 but improved following BiPAP therapy. His CBC showed a white count of 9.6 and a stable anemia with a hemoglobin of 10.1 and a platelet count of 199,000. His chemistries were overall unremarkable other than mild hypokalemia with potassium of 3.3 and his blood glucose was slightly elevated at 124. His UA was unremarkable. A CT of his head was performed and showed no acute findings his chest x-ray was also relatively unremarkable. Evid ently after his discharge from [facility] he was supposed to continue BiPAP, have PT and OT and home nursing but is unclear if any of this had been established. Evidently the patient did okay for the first week but had more shortness of breath after that. And had been falling into the door frame resulting in extensive bruising all over his body. It was established on admission that his CODE STATUS is DNR CCA with no intubation. Patient was admitted to the medical floor and placed on BiPAP as needed and with sleep. He was placed on IV Lasix and Diamox daily. His potassium was corrected. He was placed on scheduled bronchodilators and initially was given steroids however these were discontinued shortly after admission by pulmonary medicine. Given his recurrent admissions and poor clinical status hospice conversations were initiated at the time of admission however initially patient the patient's family were reluctant to pursue hospice care. The patient was known to have end-stage COPD along with pulmonary artery hypertension and was on maximal therapy prior to admission. The patient unfortunately got worse and required continuous BiPAP secondary to marked respiratory acidosis with a PCO2 of greater than 100 with his baseline being 50-60. BiPAP corrected this however his hypercapnia would return anytime he was not wearing his BiPAP continuously. He was aggressively diuresed during his hospitalization and was 16.8 L negative at the time of discharge. His serum creatinine held stable throughout diuresis. Unfortunately with his lack of improvement and known end-stage disease we had recurring discussions with his family with regards to overall prognosis and hospice and given his lack of improvement over the course of 7 days they elected to pursue hospice care at an inpatient hospice unit. He was discharged to the [facility] on 03/03/2022. He was given a dose of Roxanol 5 mg sublingual x1 before discharge. Discharge diagnoses: Acute on chronic hypoxic and hypercapnic respiratory failure Acute exacerbation of COPD Decompensated HFpEF Metabolic/toxic encephalopathy Hypokalemia Recent urethral bleeding YENI Chronic macrocytic anemia Diastolic dysfunction COPD Gold stage IV GERD Hypertension Paroxysmal atrial fibrillation Morbid obesity Physical Exam Const alert and no apparent distress Constitutional Narrative: Very sleepy older white male lying in bed, patient appears much older than stated age, patient does follow commands but there is limited interaction, difficulty to tell how oriented the patient is at this time and currently on continuous BiPAP, at bedside General Appearance: comfortable and well developed Orientation / Consciousness: awake Exam Limitations: other limitations Nutritional Appearance: morbidly obese HEENT normocephalic and head/scalp atraumatic Eyes PERRL, EOMs intact bilaterally and conjunctivae normal Eyes Narrative: No scleral icterus Neck no lymphadenopathy, supple and no JVD Neck Narrative: Trachea midline, no thyroid enlargement Resp normal respiratory effort, no retractions, no use of accessory muscles and clear to auscultation bilaterally Resp Narrative: Diffusely diminished, patient appears comfortable on BiPAP at this time Auscultation: Negative for crackles, rales, rhonchi or wheezes Cardio regular rate, regular rhythm, S1 normal heart sound, S2 normal heart sound, no murmurs, no rub, no gallops, no clicks and no JVD GI normal to inspection, nondistended, normoactive bowel sounds, soft to palpation, non-tender and non-distended GI Narrative: Obese. Soft nondistended nontender Extremity normal to inspection and no clubbing, cyanosis or edema Skin skin turgor normal and no jaundice Skin Narrative: Extensive scattered ecchymosis related to hospitalization, wound on great toenail left foot Neuro moves all extremities and no focal motor deficits Neuro Narrative: Spontaneously moves all extremities and follows commands but minimal int eraction, no vocalization and marked weakness Sensorium / Orientation: awake Psych affect normal Psych Narrative: Unable to assess, patient has been pulling out IVs, pulling off his telemetry, and pulling off his BiPAP Medical Records Data Medical Nutrition Assessment Dietitian: Malnutrition Criteria Met Start: 03/02/22 13:27 Freq: Status: Active Protocol: Document 03/02/22 13:27 JAK (Rec: 03/02/22 13:27 [facility] [id number]) Nutrition Malnutrition Evidence of Malnutrition Exists Yes Malnutrition (severe): Acute Illness/Injury Evidenced By Suboptimal Energy Intake ( Severe),Weight Loss (Severe) Intake Problem Inadequate Oral Intake Status Inactive Problem Clinical Problem Acute Disease or Injury Related Malnutrition Etiology related to inadequate energy intake and respiratory issues requiring bipap prn Signs/Symptoms as evidenced by pt po intake meeting <50% of est nutritional needs and 9.3% wt loss since adm Status Active Problem Unintended Weight Loss Status Inactive Problem Recommendation Dietitian Recommendations/Changes Will liberalize diet to regular (w/ fluid restriction per MD) d/t signs and symptoms of malnutrition - once po diet resumes, can resume therapeutic diet prn Will order 120mL Ensure Enlive TID with medpass for increased nutrition if consumed Will provide ensure pudding w/ lunch and dinner for increased nutrition if consumed. Weight / BMI Weight Weight: 118.4 kg Body Mass Index (BMI) 48.9 ABG / Lab / Microbiology Data Result Diagrams: 03/03/22 07:10 03/03/22 07:10 Laboratory: Laboratory Results - last 24 hr 03/03/22 07:10: WBC 12.2 H, RBC 3.83 L, Hgb 11.1 L, Hct 38.5 L, MCV 100.5 H, MCH 29.0, MCHC 28.8 L, RDW Std Deviation 51.7 H, RDW Coeff of Earle 13.9, Plt Count 201, MPV 10.0, Immature Gran % (Auto) 1.000 H, Neut % (Auto) 85.0 H, Lymph % (Auto) 6.6 L, [place] % (Auto) 5.7, Eos % (Auto) 1.5, Baso % (Auto) 0.2, Absolute Neuts (auto) 10.4 H, Absolute Lymphs (auto) 0.80 L, Nucleated RBC % 0 03/03/22 07:10: Sodium 140, Potassium 3.5, Chloride 84 L, Carbon Dioxide > 45.0 H*, Anion Gap TNP, BUN 31 H, Creatinine 0.59 L, Estim Creat Clear Calc 58.94, Est GFR (MDRD) Af Amer 175, Est GFR (MDRD) Non-Af 145, BUN/Creatinine Ratio 52.8 H, Glucose 96, Calcium 9.2 Microbiology: Microbiology 02/24/22 17:15 Blood Culture (Wb) - Right Hand Blood Culture - Final No growth in 5 days. 02/24/22 16:45 Blood Culture (Wb) - Anticubital Left Blood Culture - Final No growth in 5 days. 02/25/22 00:00 Nasal Secretion SARS-CoV-2 Antigen (Rapid) - Final ABG: ABG 03/02/22 03/03/22 10:26 08:56 Specimen Type ART ART Sample Site L Brach L Brach pH 7.24 L 7.37 Bicarbonate Actual 52.9 H 53.4 H Total CO2 > 50 > 50 Base Excess 25 H 28 H O2 Saturation 99 94 L O2 % 40 ABG pCO2 124.8 H* 93.0 H* ABG pO2 153 H 82 Mahesh Test Positive O2 Delivery Device Cannula BiPAP Liter Flow 6.0 Crit Call To/Read Back Yes Yes Blood Gas Notified Whom nubia wise Clinical Comments D/C Instructions Discharge Diet: No restrictions Meaningful Use Info Meaningful Use Diagnoses (Choose all that apply): None applicable Discharge Plan Admission Admit Date/Time: 02/24/22 20:26 Primary Reason for Your Visit: Progressively worsening lethergy Attending Provider: Nahomi Wise Primary Care Provider: Juvenal Trivedi Consulting Providers: Tiera Looney ; Ricky Pascual ; Velia Ha ; Noemy Sevilla ; Catherine Patel CHYRON OPERATOR ; Janki Estrada ; Yandel Shah ; Alhaji Roman Discharge Orders/Prescriptions Prescriptions: Continued ipratropium-albuterol 0.5 mg-3 mg(2.5 mg base)/3 mL solution for nebulization 3 ml inhalation Q6H PRN (Reason: Shortness Of Breath) albuterol sulfate 90 mcg/actuation HFA aerosol inhaler 2 puff INHALATION Q6H PRN (Reason: shortness of breath or wheezing) Qty: 18 3RF Discontinued ascorbic acid (vitamin C) 500 mg tablet 1,000 mg PO DAILY aspirin [Adult Low Dose Aspirin] 81 mg tablet,delayed release (DR/EC) 81 mg PO DAILY metoprolol tartrate 25 mg tablet 25 mg PO BID potassium chloride [Klor-Con M20] 20 mEq tablet,ER particles/crystals 20 meq PO DAILYCM cholecalciferol (vitamin D3) 25 mcg (1,000 unit) tablet 25 mcg PO DAILY calcium-vit D3-mag gly-zinc 400 mg-83.3 mcg -166.7 mg capsule 1 cap PO DAILY tamsulosin 0.4 mg capsule 0.8 mg PO QHS Label Comments: urination finasteride 5 MG tablet 5 mg PO DAILY ferrous sulfate 325 MG tablet 325 mg PO DAILY Label Comments: TAKE 1 TABLET BY MOUTH EVERY DAY omeprazole 20 mg capsule,delayed release(DR/EC) 20 mg PO DAILY budesonide-formoterol [Symbicort] 160-4.5 mcg/actuation Hfa Aerosol Inhaler 2 puff INHALATION BID furosemide [Lasix] 40 mg tablet 40 mg PO BID 30 Days Qty: 60 0RF zaleplon 5 mg capsule 1 cap PO QHS Label Comments: 1 (ONE) CAPSULE BY MOUTH AT BEDTIME, NEEDED bumetanide 1 mg tablet 1 mg PO BID Spiriva Respimat 2.5 mcg/actuation mist 2 inh INHALATION DAILY Qty: 3 3RF Referrals / Follow Up: Juvenal Trivedi MD [Primary Care Provider] - Disposition Disposition (needs filled in before D/C Order can be placed): Hospice in Medical Facility Charges/Coding Visit Charges Inpatient E&M: 29783 Disch Hosp
--- NOTE | 2022-03-03 15:26 | CASEMGMT ---
Social Work [facility] confirms they can accept pt to [facility] and will provide transportation from their mobile unit between 4-4:30. Nursing aware. ESTHELA Bell
== END 2022-03-03 17:07 | disposition hospice, inpatient (51) | DRG 189 ==
LOC: ED 19:56 → MS3 21:30
PROVIDERS: Internal Medicine Critical Care Medicine; Admitting Provider Internal Medicine; Emergency Provider Emergency Medicine; PCP Internal Medicine; Visit Provider Internal Medicine
DX: J96.21 Acute and chronic respiratory failure with hypoxia (principal); I50.33 Acute on chronic diastolic (congestive) heart failure; G92.8 Other toxic encephalopathy; Z68.42 Body mass index [BMI] 45.0-49.9, adult; E87.2 Acidosis; J96.22 Acute and chronic respiratory failure with hypercapnia; I48.0 Paroxysmal atrial fibrillation; E66.01 Morbid (severe) obesity due to excess calories; I11.0 Hypertensive heart disease with heart failure; I27.21 Secondary pulmonary arterial hypertension; J43.9 Emphysema, unspecified; G47.33 Obstructive sleep apnea (adult) (pediatric); E87.6 Hypokalemia; K21.9 Gastro-esophageal reflux disease without esophagitis; D53.9 Nutritional anemia, unspecified; N36.8 Other specified disorders of urethra; N40.0 Benign prostatic hyperplasia without lower urinary tract symptoms; Z66 Do not resuscitate; Z51.5 Encounter for palliative care; Z79.82 Long term (current) use of aspirin; Z99.81 Dependence on supplemental oxygen; Z79.899 Other long term (current) drug therapy; Z87.891 Personal history of nicotine dependence
CPT/HCPCS: 36415; 36600; 51702; 70450; 71045; 80048; 80053; 81001; 82803; 82962; 83605; 83735; 83880; 84132; 84443; 84484; 85025; 85610; 85730; 87040; 87426; 92507; 92526; 92610; 93005; 94002; 94003; 94640; 94762; 97110; 97116; 97162; 97166; 97530; 97535; 99285; J7040; J7050; A4216; J1940